=== PATIENT | male | born 1990 | race Caucasian/White ===

== ENCOUNTER 2021-10-23 07:52 | Outpatient (CLI) | payer OTHER | END 2021-10-23 23:59 | disposition home or self-care (01) | LOC: CT 07:52 | PROVIDERS: ATTEND Internal Medicine | DX: G93.89 Other specified disorders of brain (principal); G93.40 Encephalopathy, unspecified | CPT/HCPCS: 70450 ==

== ENCOUNTER 2022-08-12 | Inpatient (IN) | payer OTHER ==
[~2022-08-12] VITALS: Ht 182.9 cm; Wt 83.0 kg
[2022-08-14] MEDS ORDERED: LORAZEPAM 2 MG/1 ML VIAL IM PRN (08:15)
[2022-08-14] MEDS ORDERED: LACTULOSE 20 G/30 ML LIQUID UDC GT PRN (08:15)
[2022-08-14] MEDS ORDERED: ALBUTEROL SULFATE 2.5 MG/3 ML NEBU NEB PRN (08:15)
[2022-08-14] MEDS ORDERED: ACETAMINOPHEN 650 MG/20 ML UDC- SA PATIENTS-FEVER ONLY GT PRN (08:15)
[2022-08-14] MEDS ORDERED: LORAZEPAM 0.5 MG TABLET GT PRN (08:15)
[2022-08-14] MEDS ORDERED: BISACODYL 10 MG SUPP.RECT RC PRN (08:15)
[2022-08-14] MEDS ORDERED: ACETAMINOPHEN 650 MG/20 ML UDC- SA PATIENTS-PAIN ONLY GT PRN (08:15)
[2022-08-14] MEDS ORDERED: IPRATROPIUM BROMIDE 0.5 MG/2.5 ML NEBU NEB PRN (08:15)
[2022-08-14] MEDS ORDERED: HYDROGEN PEROXIDE 3% 118 ML BOTTLE TP PRN (08:15)
[2022-08-14] MEDS ORDERED: REMEDY ESSENTIAL ZINC PASTE 113 GM TP PRN (08:15)
[2022-08-14] MEDS ORDERED: TUBERCULIN,PURIF.PROT.DERIV. 5 TU/0.1 ML TEST ID SCH (08:30)
[2022-08-14] MEDS: MINERAL OIL/PETROLAT OPHT OINT 3.5 GM TUBE EACHEYE SCH ×2 (09:00→21:05)
[2022-08-14] MEDS: LACOSAMIDE 100 MG/10 ML UDC GT SCH ×2 (09:00→21:00)
[2022-08-14] MEDS: LACTULOSE 20 G/30 ML LIQUID UDC GT SCH ×2 (09:01→21:00)
[2022-08-14] MEDS: DOCUSATE SODIUM 100 MG/10 ML LIQUID UDC GT SCH ×2 (09:01→21:00)
[2022-08-14] MEDS: DESMOPRESSIN 0.1 MG TABLET GT SCH (09:01)
[2022-08-14] MEDS: levETIRAcetam 500 MG/5 ML LIQUID UDC GT SCH ×2 (09:02→21:00)
[2022-08-14] MEDS: CHLORHEXIDINE GLUCONATE 15 ML MOUTHWASH MM SCH ×2 (09:04→17:11)
[2022-08-14] MEDS: MIDODRINE HCL 5 MG TABLET GT SCH ×2 (09:04→21:00)
[2022-08-14] MEDS: REMEDY ESSENTIAL ZINC PASTE 113 GM TP SCH ×2 (09:05→21:00)
[2022-08-14] MEDS: VITAMINS A AND D OINT TP SCH (09:05)
[2022-08-14] MEDS: NEOMY/BACITRA/POLYMYXIN B OINT UD PACKET TP SCH ×2 (09:05→21:00)
[2022-08-14] MEDS: HYDROGEN PEROXIDE 3% 118 ML BOTTLE TOP SCH ×2 (09:19→21:43)
--- NOTE | 2022-08-14 11:35 | NUR ---
Covid 19 rapid test # 2 done as protocol,with negative results.
[2022-08-14] MEDS: METOCLOPRAMIDE HCL 10 MG TABLET GT SCH ×3 (12:19→17:11)
[2022-08-14] MEDS: POLYVINYL ALCOHOL OPHT DROPS 15 ML BOTTLE EACHEYE SCH ×3 (12:20→20:00)
[2022-08-14] MEDS: JEVITY 1.2 1000 ML LIQUID GT PRN (13:05)
--- NOTE | 2022-08-14 13:48 | NUR ---
SW emailed the annual admission packet to the patient's mother, Mar, to fill out. The paperwork includes: Conditions of Admission, Patient Rights Acknowledgement, Documentation of Preferred Intensity of Care, Voluntary Prior Express Consent Form, Race and Ethnicity Patient Self-Identification, and the [facility] Agreement. SW included instructions to return completed and signed forms to this SW. SW will continue to follow up.
[2022-08-14] MEDS: BACLOFEN 10 MG TABLET GT SCH ×2 (14:45→22:00)
[2022-08-14] MEDS: MULTIVIT, IRON, MIN NO. 8, FA TABLET GT SCH (21:00)
[2022-08-14] MEDS: MELATONIN 3 MG TABLET GT SCH (21:00)
[2022-08-14] MEDS: SENNOSIDES 1 TABLET GT SCH (21:00)
[2022-08-14] MEDS: FERROUS SULFATE 330 MG/7.5 ML UDC- FOR SA ONLY GT SCH (21:00)
[2022-08-15] MEDS: POLYVINYL ALCOHOL OPHT DROPS 15 ML BOTTLE EACHEYE SCH ×6 (03:45→20:00)
[2022-08-15] MEDS: METOCLOPRAMIDE HCL 10 MG TABLET GT SCH ×4 (05:24→18:17)
[2022-08-15] MEDS: OMEPRAZOLE 40 MG CAPSULE.DR GT SCH (05:24)
[2022-08-15] MEDS: CHOLECALCIFEROL 1,000 UNIT TABLET GT SCH (05:24)
[2022-08-15] MEDS: BACLOFEN 10 MG TABLET GT SCH ×3 (05:24→21:50)
[2022-08-15] MEDS: BISACODYL 10 MG SUPP.RECT RC SCH (08:13)
[2022-08-15] MEDS: HYDROGEN PEROXIDE 3% 118 ML BOTTLE TOP SCH ×2 (09:00→19:37)
[2022-08-15] MEDS: MINERAL OIL/PETROLAT OPHT OINT 3.5 GM TUBE EACHEYE SCH ×2 (09:18→21:45)
[2022-08-15] MEDS: DOCUSATE SODIUM 100 MG/10 ML LIQUID UDC GT SCH ×2 (09:18→21:45)
[2022-08-15] MEDS: LACTULOSE 20 G/30 ML LIQUID UDC GT SCH ×2 (09:18→21:45)
[2022-08-15] MEDS: levETIRAcetam 500 MG/5 ML LIQUID UDC GT SCH ×2 (09:19→21:46)
[2022-08-15] MEDS: DESMOPRESSIN 0.1 MG TABLET GT SCH (09:19)
[2022-08-15] MEDS: REMEDY ESSENTIAL ZINC PASTE 113 GM TP SCH ×2 (09:20→21:50)
[2022-08-15] MEDS: LACOSAMIDE 100 MG/10 ML UDC GT SCH ×2 (09:20→21:50)
[2022-08-15] MEDS: MIDODRINE HCL 5 MG TABLET GT SCH ×2 (09:20→21:48)
[2022-08-15] MEDS: CHLORHEXIDINE GLUCONATE 15 ML MOUTHWASH MM SCH ×2 (09:20→17:00)
[2022-08-15] MEDS: VITAMINS A AND D OINT TP SCH (09:21)
[2022-08-15] MEDS: NEOMY/BACITRA/POLYMYXIN B OINT UD PACKET TP SCH ×2 (09:21→21:50)
[2022-08-15] MEDS: FERROUS SULFATE 330 MG/7.5 ML UDC- FOR SA ONLY GT SCH (21:45)
[2022-08-15] MEDS: MELATONIN 3 MG TABLET GT SCH (21:46)
[2022-08-15] MEDS: SENNOSIDES 1 TABLET GT SCH (21:49)
[2022-08-15] MEDS: MULTIVIT, IRON, MIN NO. 8, FA TABLET GT SCH (21:50)
[2022-08-16] MEDS: METOCLOPRAMIDE HCL 10 MG TABLET GT SCH ×5 (00:46→23:27)
[2022-08-16] MEDS: POLYVINYL ALCOHOL OPHT DROPS 15 ML BOTTLE EACHEYE SCH ×7 (00:46→23:27)
[2022-08-16] MEDS: OMEPRAZOLE 40 MG CAPSULE.DR GT SCH (06:45)
[2022-08-16] MEDS: CHOLECALCIFEROL 1,000 UNIT TABLET GT SCH (06:45)
[2022-08-16] MEDS: BACLOFEN 10 MG TABLET GT SCH ×3 (06:45→21:19)
[2022-08-16] MEDS: MINERAL OIL/PETROLAT OPHT OINT 3.5 GM TUBE EACHEYE SCH ×2 (08:20→21:18)
[2022-08-16] MEDS: LACTULOSE 20 G/30 ML LIQUID UDC GT SCH ×2 (08:20→21:18)
[2022-08-16] MEDS: levETIRAcetam 500 MG/5 ML LIQUID UDC GT SCH ×2 (08:23→21:18)
[2022-08-16] MEDS: DOCUSATE SODIUM 100 MG/10 ML LIQUID UDC GT SCH ×2 (08:23→21:18)
[2022-08-16] MEDS: DESMOPRESSIN 0.1 MG TABLET GT SCH (08:23)
[2022-08-16] MEDS: MIDODRINE HCL 5 MG TABLET GT SCH ×2 (08:24→21:19)
[2022-08-16] MEDS: LACOSAMIDE 100 MG/10 ML UDC GT SCH ×2 (08:24→21:19)
[2022-08-16] MEDS: REMEDY ESSENTIAL ZINC PASTE 113 GM TP SCH ×2 (08:24→21:19)
[2022-08-16] MEDS: NEOMY/BACITRA/POLYMYXIN B OINT UD PACKET TP SCH ×2 (08:24→21:19)
[2022-08-16] MEDS: VITAMINS A AND D OINT TP SCH (08:24)
[2022-08-16] MEDS: CHLORHEXIDINE GLUCONATE 15 ML MOUTHWASH MM SCH ×2 (08:24→17:00)
[2022-08-16] MEDS: HYDROGEN PEROXIDE 3% 118 ML BOTTLE TOP SCH ×2 (09:53→21:40)
[2022-08-16] MEDS: MELATONIN 3 MG TABLET GT SCH (21:18)
[2022-08-16] MEDS: FERROUS SULFATE 330 MG/7.5 ML UDC- FOR SA ONLY GT SCH (21:18)
[2022-08-16] MEDS: MULTIVIT, IRON, MIN NO. 8, FA TABLET GT SCH (21:19)
[2022-08-16] MEDS: SENNOSIDES 1 TABLET GT SCH (21:19)
[2022-08-16] MEDS: JEVITY 1.2 1000 ML LIQUID GT PRN (21:28)
[2022-08-17] MEDS: POLYVINYL ALCOHOL OPHT DROPS 15 ML BOTTLE EACHEYE SCH ×5 (04:00→20:00)
[2022-08-17] MEDS: OMEPRAZOLE 40 MG CAPSULE.DR GT SCH (06:14)
[2022-08-17] MEDS: BACLOFEN 10 MG TABLET GT SCH ×3 (06:14→21:53)
[2022-08-17] MEDS: CHOLECALCIFEROL 1,000 UNIT TABLET GT SCH (06:14)
[2022-08-17] MEDS: METOCLOPRAMIDE HCL 10 MG TABLET GT SCH ×3 (06:14→17:58)
[2022-08-17] MEDS: BISACODYL 10 MG SUPP.RECT RC SCH (08:13)
[2022-08-17] MEDS: MINERAL OIL/PETROLAT OPHT OINT 3.5 GM TUBE EACHEYE SCH ×2 (09:00→21:00)
[2022-08-17] MEDS: CHLORHEXIDINE GLUCONATE 15 ML MOUTHWASH MM SCH ×2 (09:00→17:58)
[2022-08-17] MEDS: NEOMY/BACITRA/POLYMYXIN B OINT UD PACKET TP SCH ×2 (09:00→21:00)
[2022-08-17] MEDS: levETIRAcetam 500 MG/5 ML LIQUID UDC GT SCH ×2 (09:00→21:51)
[2022-08-17] MEDS: LACOSAMIDE 100 MG/10 ML UDC GT SCH ×2 (09:00→21:00)
[2022-08-17] MEDS: MIDODRINE HCL 5 MG TABLET GT SCH ×2 (09:00→21:00)
[2022-08-17] MEDS: DOCUSATE SODIUM 100 MG/10 ML LIQUID UDC GT SCH ×2 (09:00→21:00)
[2022-08-17] MEDS: VITAMINS A AND D OINT TP SCH (09:00)
[2022-08-17] MEDS: DESMOPRESSIN 0.1 MG TABLET GT SCH (09:00)
[2022-08-17] MEDS: REMEDY ESSENTIAL ZINC PASTE 113 GM TP SCH ×2 (09:00→21:00)
[2022-08-17] MEDS: LACTULOSE 20 G/30 ML LIQUID UDC GT SCH ×2 (09:00→21:00)
[2022-08-17] MEDS: HYDROGEN PEROXIDE 3% 118 ML BOTTLE TOP SCH ×2 (09:45→21:54)
--- NOTE | 2022-08-17 19:30 | NUR ---
Called mother Ms. Manuel notified regarding patient current weight is 183Lb. Mother is concern about bowel moment notified accordingly.
[2022-08-17] MEDS: FERROUS SULFATE 330 MG/7.5 ML UDC- FOR SA ONLY GT SCH (21:00)
[2022-08-17] MEDS: SENNOSIDES 1 TABLET GT SCH (21:52)
[2022-08-17] MEDS: MELATONIN 3 MG TABLET GT SCH (21:52)
[2022-08-17] MEDS: MULTIVIT, IRON, MIN NO. 8, FA TABLET GT SCH (21:52)
[2022-08-18] MEDS: JEVITY 1.2 1000 ML LIQUID GT PRN (01:51)
[2022-08-18] MEDS: POLYVINYL ALCOHOL OPHT DROPS 15 ML BOTTLE EACHEYE SCH ×7 (04:00→23:40)
[2022-08-18] MEDS: METOCLOPRAMIDE HCL 10 MG TABLET GT SCH ×5 (06:00→23:40)
[2022-08-18] MEDS: CHOLECALCIFEROL 1,000 UNIT TABLET GT SCH (06:00)
[2022-08-18] MEDS: BACLOFEN 10 MG TABLET GT SCH ×3 (06:00→22:00)
[2022-08-18] MEDS: OMEPRAZOLE 40 MG CAPSULE.DR GT SCH (06:10)
[2022-08-18] MEDS: HYDROGEN PEROXIDE 3% 118 ML BOTTLE TOP SCH ×2 (08:45→21:00)
[2022-08-18] MEDS: MINERAL OIL/PETROLAT OPHT OINT 3.5 GM TUBE EACHEYE SCH ×2 (09:35→21:00)
[2022-08-18] MEDS: LACTULOSE 20 G/30 ML LIQUID UDC GT SCH ×2 (09:35→21:00)
[2022-08-18] MEDS: DOCUSATE SODIUM 100 MG/10 ML LIQUID UDC GT SCH ×2 (09:36→21:00)
[2022-08-18] MEDS: MIDODRINE HCL 5 MG TABLET GT SCH ×2 (09:36→21:00)
[2022-08-18] MEDS: DESMOPRESSIN 0.1 MG TABLET GT SCH (09:36)
[2022-08-18] MEDS: levETIRAcetam 500 MG/5 ML LIQUID UDC GT SCH ×2 (09:37→21:00)
[2022-08-18] MEDS: LACOSAMIDE 100 MG/10 ML UDC GT SCH ×2 (09:38→21:00)
[2022-08-18] MEDS: REMEDY ESSENTIAL ZINC PASTE 113 GM TP SCH ×2 (09:39→21:00)
[2022-08-18] MEDS: CHLORHEXIDINE GLUCONATE 15 ML MOUTHWASH MM SCH ×2 (09:39→17:34)
[2022-08-18] MEDS: VITAMINS A AND D OINT TP SCH (09:39)
[2022-08-18] MEDS: NEOMY/BACITRA/POLYMYXIN B OINT UD PACKET TP SCH ×2 (09:39→21:00)
[2022-08-18] MEDS: SENNOSIDES 1 TABLET GT SCH (21:00)
[2022-08-18] MEDS: MELATONIN 3 MG TABLET GT SCH (21:00)
[2022-08-18] MEDS: FERROUS SULFATE 330 MG/7.5 ML UDC- FOR SA ONLY GT SCH (21:00)
[2022-08-18] MEDS: MULTIVIT, IRON, MIN NO. 8, FA TABLET GT SCH (21:00)
[2022-08-19] MEDS: POLYVINYL ALCOHOL OPHT DROPS 15 ML BOTTLE EACHEYE SCH ×5 (04:00→20:00)
[2022-08-19] MEDS: BACLOFEN 10 MG TABLET GT SCH ×3 (06:41→22:00)
[2022-08-19] MEDS: OMEPRAZOLE 40 MG CAPSULE.DR GT SCH (06:41)
[2022-08-19] MEDS: METOCLOPRAMIDE HCL 10 MG TABLET GT SCH ×3 (06:41→17:00)
[2022-08-19] MEDS: CHOLECALCIFEROL 1,000 UNIT TABLET GT SCH (06:42)
[2022-08-19] MEDS: DOCUSATE SODIUM 100 MG/10 ML LIQUID UDC GT SCH ×2 (08:08→21:00)
[2022-08-19] MEDS: DESMOPRESSIN 0.1 MG TABLET GT SCH (08:08)
[2022-08-19] MEDS: levETIRAcetam 500 MG/5 ML LIQUID UDC GT SCH ×2 (08:08→21:00)
[2022-08-19] MEDS: MINERAL OIL/PETROLAT OPHT OINT 3.5 GM TUBE EACHEYE SCH ×2 (08:08→21:00)
[2022-08-19] MEDS: LACTULOSE 20 G/30 ML LIQUID UDC GT SCH ×2 (08:08→21:00)
[2022-08-19] MEDS: MIDODRINE HCL 5 MG TABLET GT SCH ×2 (08:08→21:00)
[2022-08-19] MEDS: VITAMINS A AND D OINT TP SCH (08:09)
[2022-08-19] MEDS: LACOSAMIDE 100 MG/10 ML UDC GT SCH ×2 (08:09→21:00)
[2022-08-19] MEDS: NEOMY/BACITRA/POLYMYXIN B OINT UD PACKET TP SCH ×2 (08:09→21:00)
[2022-08-19] MEDS: CHLORHEXIDINE GLUCONATE 15 ML MOUTHWASH MM SCH ×2 (08:09→16:59)
[2022-08-19] MEDS: REMEDY ESSENTIAL ZINC PASTE 113 GM TP SCH ×2 (08:09→21:00)
[2022-08-19] MEDS: HYDROGEN PEROXIDE 3% 118 ML BOTTLE TOP SCH ×2 (09:28→21:00)
[2022-08-19] MEDS: FERROUS SULFATE 330 MG/7.5 ML UDC- FOR SA ONLY GT SCH (21:00)
[2022-08-19] MEDS: SENNOSIDES 1 TABLET GT SCH (21:00)
[2022-08-19] MEDS: MELATONIN 3 MG TABLET GT SCH (21:00)
[2022-08-19] MEDS: MULTIVIT, IRON, MIN NO. 8, FA TABLET GT SCH (21:00)
[2022-08-20] MEDS: METOCLOPRAMIDE HCL 10 MG TABLET GT SCH ×4 (00:25→17:02)
[2022-08-20] MEDS: POLYVINYL ALCOHOL OPHT DROPS 15 ML BOTTLE EACHEYE SCH ×6 (00:25→20:00)
[2022-08-20] MEDS: OMEPRAZOLE 40 MG CAPSULE.DR GT SCH (05:42)
[2022-08-20] MEDS: CHOLECALCIFEROL 1,000 UNIT TABLET GT SCH (05:42)
[2022-08-20] MEDS: BACLOFEN 10 MG TABLET GT SCH ×3 (05:42→22:00)
[2022-08-20] MEDS: LACOSAMIDE 100 MG/10 ML UDC GT SCH ×2 (08:34→21:00)
[2022-08-20] MEDS: BISACODYL 10 MG SUPP.RECT RC SCH (08:35)
[2022-08-20] MEDS: REMEDY ESSENTIAL ZINC PASTE 113 GM TP SCH ×2 (09:00→21:00)
[2022-08-20] MEDS: MIDODRINE HCL 5 MG TABLET GT SCH ×2 (09:00→21:00)
[2022-08-20] MEDS: NEOMY/BACITRA/POLYMYXIN B OINT UD PACKET TP SCH ×2 (09:00→21:00)
[2022-08-20] MEDS: MINERAL OIL/PETROLAT OPHT OINT 3.5 GM TUBE EACHEYE SCH ×2 (09:00→21:00)
[2022-08-20] MEDS: levETIRAcetam 500 MG/5 ML LIQUID UDC GT SCH ×2 (09:00→21:00)
[2022-08-20] MEDS: DESMOPRESSIN 0.1 MG TABLET GT SCH (09:00)
[2022-08-20] MEDS: VITAMINS A AND D OINT TP SCH (09:00)
[2022-08-20] MEDS: DOCUSATE SODIUM 100 MG/10 ML LIQUID UDC GT SCH ×2 (09:00→21:00)
[2022-08-20] MEDS: CHLORHEXIDINE GLUCONATE 15 ML MOUTHWASH MM SCH ×2 (09:00→17:02)
[2022-08-20] MEDS: LACTULOSE 20 G/30 ML LIQUID UDC GT SCH ×2 (09:00→21:00)
[2022-08-20] MEDS: HYDROGEN PEROXIDE 3% 118 ML BOTTLE TOP SCH ×2 (09:57→21:00)
[2022-08-20] MEDS: MULTIVIT, IRON, MIN NO. 8, FA TABLET GT SCH (21:00)
[2022-08-20] MEDS: MELATONIN 3 MG TABLET GT SCH (21:00)
[2022-08-20] MEDS: FERROUS SULFATE 330 MG/7.5 ML UDC- FOR SA ONLY GT SCH (21:00)
[2022-08-20] MEDS: SENNOSIDES 1 TABLET GT SCH (21:00)
[2022-08-21] MEDS: METOCLOPRAMIDE HCL 10 MG TABLET GT SCH ×4 (00:14→17:47)
[2022-08-21] MEDS: POLYVINYL ALCOHOL OPHT DROPS 15 ML BOTTLE EACHEYE SCH ×6 (00:15→20:00)
[2022-08-21] MEDS: OMEPRAZOLE 40 MG CAPSULE.DR GT SCH (06:00)
[2022-08-21] MEDS: CHOLECALCIFEROL 1,000 UNIT TABLET GT SCH (06:00)
[2022-08-21] MEDS: BACLOFEN 10 MG TABLET GT SCH ×3 (06:00→22:00)
--- NOTE | 2022-08-21 06:30 | NUR ---
SHIFT NOTED. MEDICATION GIVEN ORDERED NO SIGNS OF DISTRESS NOTED OR ADVERSE REACTION FROM MEDICATION PT CARE PROVIDED PT TOLERATED WELL WITH OUT DISTRESS . NO SIGNS OF PAIN NOTED. WILL ENDORSE TO AM SHIFT NURSE./
[2022-08-21] MEDS: HYDROGEN PEROXIDE 3% 118 ML BOTTLE TOP SCH ×2 (07:44→21:00)
[2022-08-21] MEDS: MINERAL OIL/PETROLAT OPHT OINT 3.5 GM TUBE EACHEYE SCH ×2 (09:19→21:00)
[2022-08-21] MEDS: LACTULOSE 20 G/30 ML LIQUID UDC GT SCH ×2 (09:19→21:00)
[2022-08-21] MEDS: DESMOPRESSIN 0.1 MG TABLET GT SCH (09:20)
[2022-08-21] MEDS: DOCUSATE SODIUM 100 MG/10 ML LIQUID UDC GT SCH ×2 (09:20→21:00)
[2022-08-21] MEDS: levETIRAcetam 500 MG/5 ML LIQUID UDC GT SCH ×2 (09:20→21:00)
[2022-08-21] MEDS: MIDODRINE HCL 5 MG TABLET GT SCH ×2 (09:21→21:00)
[2022-08-21] MEDS: NEOMY/BACITRA/POLYMYXIN B OINT UD PACKET TP SCH ×2 (09:21→21:00)
[2022-08-21] MEDS: LACOSAMIDE 100 MG/10 ML UDC GT SCH ×2 (09:21→21:00)
[2022-08-21] MEDS: REMEDY ESSENTIAL ZINC PASTE 113 GM TP SCH ×2 (09:21→21:00)
[2022-08-21] MEDS: VITAMINS A AND D OINT TP SCH (09:21)
[2022-08-21] MEDS: CHLORHEXIDINE GLUCONATE 15 ML MOUTHWASH MM SCH ×2 (09:21→17:47)
[2022-08-21] MEDS: JEVITY 1.2 1000 ML LIQUID GT PRN (12:51)
[2022-08-21] MEDS: SENNOSIDES 1 TABLET GT SCH (21:00)
[2022-08-21] MEDS: FERROUS SULFATE 330 MG/7.5 ML UDC- FOR SA ONLY GT SCH (21:00)
[2022-08-21] MEDS: MELATONIN 3 MG TABLET GT SCH (21:00)
[2022-08-21] MEDS: MULTIVIT, IRON, MIN NO. 8, FA TABLET GT SCH (21:00)
[2022-08-22] MEDS: POLYVINYL ALCOHOL OPHT DROPS 15 ML BOTTLE EACHEYE SCH ×6 (04:16→20:29)
[2022-08-22] MEDS: OMEPRAZOLE 40 MG CAPSULE.DR GT SCH (06:55)
[2022-08-22] MEDS: BACLOFEN 10 MG TABLET GT SCH ×3 (06:55→22:29)
[2022-08-22] MEDS: CHOLECALCIFEROL 1,000 UNIT TABLET GT SCH (06:56)
[2022-08-22] MEDS: METOCLOPRAMIDE HCL 10 MG TABLET GT SCH ×4 (06:56→17:56)
[2022-08-22] MEDS: BISACODYL 10 MG SUPP.RECT RC SCH (08:27)
[2022-08-22] MEDS: MINERAL OIL/PETROLAT OPHT OINT 3.5 GM TUBE EACHEYE SCH ×2 (08:27→20:29)
[2022-08-22] MEDS: LACTULOSE 20 G/30 ML LIQUID UDC GT SCH ×2 (08:27→20:29)
[2022-08-22] MEDS: MIDODRINE HCL 5 MG TABLET GT SCH ×2 (08:28→20:30)
[2022-08-22] MEDS: DESMOPRESSIN 0.1 MG TABLET GT SCH (08:28)
[2022-08-22] MEDS: DOCUSATE SODIUM 100 MG/10 ML LIQUID UDC GT SCH ×2 (08:28→20:29)
[2022-08-22] MEDS: REMEDY ESSENTIAL ZINC PASTE 113 GM TP SCH ×2 (08:29→20:30)
[2022-08-22] MEDS: LACOSAMIDE 100 MG/10 ML UDC GT SCH ×2 (08:29→20:30)
[2022-08-22] MEDS: CHLORHEXIDINE GLUCONATE 15 ML MOUTHWASH MM SCH ×2 (08:29→17:55)
[2022-08-22] MEDS: levETIRAcetam 500 MG/5 ML LIQUID UDC GT SCH ×2 (08:29→20:29)
[2022-08-22] MEDS: VITAMINS A AND D OINT TP SCH (08:29)
[2022-08-22] MEDS: NEOMY/BACITRA/POLYMYXIN B OINT UD PACKET TP SCH ×2 (08:29→20:30)
[2022-08-22] MEDS: HYDROGEN PEROXIDE 3% 118 ML BOTTLE TOP SCH ×2 (09:11→21:32)
[2022-08-22] MEDS: JEVITY 1.2 1000 ML LIQUID GT PRN (14:13)
[2022-08-22] MEDS: FERROUS SULFATE 330 MG/7.5 ML UDC- FOR SA ONLY GT SCH (20:29)
[2022-08-22] MEDS: MELATONIN 3 MG TABLET GT SCH (20:29)
[2022-08-22] MEDS: SENNOSIDES 1 TABLET GT SCH (20:30)
[2022-08-22] MEDS: MULTIVIT, IRON, MIN NO. 8, FA TABLET GT SCH (20:30)
[2022-08-23] MEDS: POLYVINYL ALCOHOL OPHT DROPS 15 ML BOTTLE EACHEYE SCH ×6 (00:37→20:00)
[2022-08-23] MEDS: METOCLOPRAMIDE HCL 10 MG TABLET GT SCH ×4 (00:37→17:16)
[2022-08-23] MEDS: BACLOFEN 10 MG TABLET GT SCH ×3 (05:22→21:38)
[2022-08-23] MEDS: OMEPRAZOLE 40 MG CAPSULE.DR GT SCH (05:22)
[2022-08-23] MEDS: CHOLECALCIFEROL 1,000 UNIT TABLET GT SCH (05:22)
[2022-08-23] MEDS: VITAMINS A AND D OINT TP SCH (08:16)
[2022-08-23] MEDS: LACOSAMIDE 100 MG/10 ML UDC GT SCH ×2 (08:16→21:38)
[2022-08-23] MEDS: DOCUSATE SODIUM 100 MG/10 ML LIQUID UDC GT SCH ×2 (08:16→21:38)
[2022-08-23] MEDS: MIDODRINE HCL 5 MG TABLET GT SCH ×2 (08:16→21:38)
[2022-08-23] MEDS: CHLORHEXIDINE GLUCONATE 15 ML MOUTHWASH MM SCH ×2 (08:16→17:16)
[2022-08-23] MEDS: levETIRAcetam 500 MG/5 ML LIQUID UDC GT SCH ×2 (08:16→21:38)
[2022-08-23] MEDS: DESMOPRESSIN 0.1 MG TABLET GT SCH (08:16)
[2022-08-23] MEDS: MINERAL OIL/PETROLAT OPHT OINT 3.5 GM TUBE EACHEYE SCH ×2 (08:16→21:38)
[2022-08-23] MEDS: LACTULOSE 20 G/30 ML LIQUID UDC GT SCH ×2 (08:16→21:38)
[2022-08-23] MEDS: REMEDY ESSENTIAL ZINC PASTE 113 GM TP SCH ×2 (08:16→21:38)
[2022-08-23] MEDS: HYDROGEN PEROXIDE 3% 118 ML BOTTLE TOP SCH ×2 (08:29→21:00)
[2022-08-23] MEDS: MULTIVIT, IRON, MIN NO. 8, FA TABLET GT SCH (21:38)
[2022-08-23] MEDS: MELATONIN 3 MG TABLET GT SCH (21:38)
[2022-08-23] MEDS: SENNOSIDES 1 TABLET GT SCH (21:38)
[2022-08-23] MEDS: FERROUS SULFATE 330 MG/7.5 ML UDC- FOR SA ONLY GT SCH (21:38)
[2022-08-24] MEDS: POLYVINYL ALCOHOL OPHT DROPS 15 ML BOTTLE EACHEYE SCH ×6 (04:00→20:00)
[2022-08-24] MEDS: METOCLOPRAMIDE HCL 10 MG TABLET GT SCH ×4 (05:46→17:10)
[2022-08-24] MEDS: OMEPRAZOLE 40 MG CAPSULE.DR GT SCH (05:46)
[2022-08-24] MEDS: CHOLECALCIFEROL 1,000 UNIT TABLET GT SCH (05:46)
[2022-08-24] MEDS: BACLOFEN 10 MG TABLET GT SCH ×3 (05:46→21:35)
[2022-08-24] MEDS: HYDROGEN PEROXIDE 3% 118 ML BOTTLE TOP SCH ×2 (08:09→21:15)
[2022-08-24] MEDS: BISACODYL 10 MG SUPP.RECT RC SCH (08:13)
[2022-08-24] MEDS: LACTULOSE 20 G/30 ML LIQUID UDC GT SCH ×2 (09:15→21:34)
[2022-08-24] MEDS: levETIRAcetam 500 MG/5 ML LIQUID UDC GT SCH ×2 (09:15→21:35)
[2022-08-24] MEDS: MINERAL OIL/PETROLAT OPHT OINT 3.5 GM TUBE EACHEYE SCH ×2 (09:15→21:34)
[2022-08-24] MEDS: DESMOPRESSIN 0.1 MG TABLET GT SCH (09:15)
[2022-08-24] MEDS: DOCUSATE SODIUM 100 MG/10 ML LIQUID UDC GT SCH ×2 (09:15→21:34)
[2022-08-24] MEDS: VITAMINS A AND D OINT TP SCH (09:16)
[2022-08-24] MEDS: MIDODRINE HCL 5 MG TABLET GT SCH ×2 (09:16→21:37)
[2022-08-24] MEDS: CHLORHEXIDINE GLUCONATE 15 ML MOUTHWASH MM SCH ×2 (09:16→16:33)
[2022-08-24] MEDS: REMEDY ESSENTIAL ZINC PASTE 113 GM TP SCH ×2 (09:16→21:35)
[2022-08-24] MEDS: LACOSAMIDE 100 MG/10 ML UDC GT SCH ×2 (09:16→21:35)
[2022-08-24] MEDS: MELATONIN 3 MG TABLET GT SCH (21:35)
[2022-08-24] MEDS: SENNOSIDES 1 TABLET GT SCH (21:35)
[2022-08-24] MEDS: FERROUS SULFATE 330 MG/7.5 ML UDC- FOR SA ONLY GT SCH (21:35)
[2022-08-24] MEDS: MULTIVIT, IRON, MIN NO. 8, FA TABLET GT SCH (21:35)
[2022-08-25] MEDS: POLYVINYL ALCOHOL OPHT DROPS 15 ML BOTTLE EACHEYE SCH ×6 (04:30→20:59)
[2022-08-25] MEDS: OMEPRAZOLE 40 MG CAPSULE.DR GT SCH (05:56)
[2022-08-25] MEDS: BACLOFEN 10 MG TABLET GT SCH ×3 (05:56→21:13)
[2022-08-25] MEDS: CHOLECALCIFEROL 1,000 UNIT TABLET GT SCH (05:56)
[2022-08-25] MEDS: METOCLOPRAMIDE HCL 10 MG TABLET GT SCH ×4 (05:56→17:33)
[2022-08-25] MEDS: HYDROGEN PEROXIDE 3% 118 ML BOTTLE TOP SCH ×2 (08:01→21:12)
[2022-08-25] MEDS: MINERAL OIL/PETROLAT OPHT OINT 3.5 GM TUBE EACHEYE SCH ×2 (08:58→20:59)
[2022-08-25] MEDS: levETIRAcetam 500 MG/5 ML LIQUID UDC GT SCH ×2 (09:03→21:07)
[2022-08-25] MEDS: LACTULOSE 20 G/30 ML LIQUID UDC GT SCH ×2 (09:03→21:02)
[2022-08-25] MEDS: DESMOPRESSIN 0.1 MG TABLET GT SCH (09:03)
[2022-08-25] MEDS: DOCUSATE SODIUM 100 MG/10 ML LIQUID UDC GT SCH ×2 (09:03→21:03)
[2022-08-25] MEDS: MIDODRINE HCL 5 MG TABLET GT SCH ×2 (09:04→21:09)
[2022-08-25] MEDS: LACOSAMIDE 100 MG/10 ML UDC GT SCH ×2 (09:04→21:25)
[2022-08-25] MEDS: CHLORHEXIDINE GLUCONATE 15 ML MOUTHWASH MM SCH ×2 (09:08→17:33)
[2022-08-25] MEDS: REMEDY ESSENTIAL ZINC PASTE 113 GM TP SCH ×2 (09:08→21:11)
[2022-08-25] MEDS: VITAMINS A AND D OINT TP SCH (09:08)
[2022-08-25] MEDS: JEVITY 1.2 1000 ML LIQUID GT PRN (17:34)
[2022-08-25] MEDS: FERROUS SULFATE 330 MG/7.5 ML UDC- FOR SA ONLY GT SCH (21:04)
[2022-08-25] MEDS: MELATONIN 3 MG TABLET GT SCH (21:07)
[2022-08-25] MEDS: SENNOSIDES 1 TABLET GT SCH (21:09)
[2022-08-25] MEDS: MULTIVIT, IRON, MIN NO. 8, FA TABLET GT SCH (21:10)
[2022-08-26] MEDS: POLYVINYL ALCOHOL OPHT DROPS 15 ML BOTTLE EACHEYE SCH ×6 (00:45→20:00)
[2022-08-26] MEDS: METOCLOPRAMIDE HCL 10 MG TABLET GT SCH ×4 (00:45→17:59)
[2022-08-26] MEDS: OMEPRAZOLE 40 MG CAPSULE.DR GT SCH (05:38)
[2022-08-26] MEDS: CHOLECALCIFEROL 1,000 UNIT TABLET GT SCH (05:38)
[2022-08-26] MEDS: BACLOFEN 10 MG TABLET GT SCH ×3 (05:38→22:03)
--- NOTE | 2022-08-26 07:53 | NUR ---
SHIFT NOTE: RECEIVED REPORT FROM AM NURSE RUFUS PT NO COMMUNICATION TRACH VENT PT GIVEN MEDICATION ORDERED CLEANED AND CHANGED ALONG WITH REPOSITIONING TOLERATED WELL NO SIGNS OF DISTRESS NOTED. NO ADVERSE REACTION FROM MEDICATIONS. WILL ENDORSE TO AM NURSE.
[2022-08-26] MEDS: DOCUSATE SODIUM 100 MG/10 ML LIQUID UDC GT SCH ×2 (08:29→21:00)
[2022-08-26] MEDS: DESMOPRESSIN 0.1 MG TABLET GT SCH (08:29)
[2022-08-26] MEDS: MINERAL OIL/PETROLAT OPHT OINT 3.5 GM TUBE EACHEYE SCH ×2 (08:29→21:00)
[2022-08-26] MEDS: LACTULOSE 20 G/30 ML LIQUID UDC GT SCH ×2 (08:29→21:00)
[2022-08-26] MEDS: MIDODRINE HCL 5 MG TABLET GT SCH ×2 (08:31→21:00)
[2022-08-26] MEDS: levETIRAcetam 500 MG/5 ML LIQUID UDC GT SCH ×2 (08:31→21:00)
[2022-08-26] MEDS: CHLORHEXIDINE GLUCONATE 15 ML MOUTHWASH MM SCH ×2 (08:31→17:11)
[2022-08-26] MEDS: LACOSAMIDE 100 MG/10 ML UDC GT SCH ×2 (08:31→21:00)
[2022-08-26] MEDS: VITAMINS A AND D OINT TP SCH (08:32)
[2022-08-26] MEDS: REMEDY ESSENTIAL ZINC PASTE 113 GM TP SCH ×2 (08:32→21:00)
[2022-08-26] MEDS: HYDROGEN PEROXIDE 3% 118 ML BOTTLE TOP SCH ×2 (09:30→21:00)
[2022-08-26] MEDS: MULTIVIT, IRON, MIN NO. 8, FA TABLET GT SCH (21:00)
[2022-08-26] MEDS: FERROUS SULFATE 330 MG/7.5 ML UDC- FOR SA ONLY GT SCH (21:00)
[2022-08-26] MEDS: SENNOSIDES 1 TABLET GT SCH (21:00)
[2022-08-26] MEDS: MELATONIN 3 MG TABLET GT SCH (21:00)
[2022-08-26] MEDS: JEVITY 1.2 1000 ML LIQUID GT PRN (22:26)
[2022-08-27] MEDS: POLYVINYL ALCOHOL OPHT DROPS 15 ML BOTTLE EACHEYE SCH ×6 (00:43→20:00)
[2022-08-27] MEDS: METOCLOPRAMIDE HCL 10 MG TABLET GT SCH ×4 (00:43→18:15)
[2022-08-27] MEDS: OMEPRAZOLE 40 MG CAPSULE.DR GT SCH (05:37)
[2022-08-27] MEDS: CHOLECALCIFEROL 1,000 UNIT TABLET GT SCH (05:37)
[2022-08-27] MEDS: BACLOFEN 10 MG TABLET GT SCH ×3 (05:37→22:00)
[2022-08-27] MEDS: HYDROGEN PEROXIDE 3% 118 ML BOTTLE TOP SCH ×2 (07:24→21:30)
[2022-08-27] MEDS: BISACODYL 10 MG SUPP.RECT RC SCH (08:45)
[2022-08-27] MEDS: MINERAL OIL/PETROLAT OPHT OINT 3.5 GM TUBE EACHEYE SCH ×2 (08:45→21:00)
[2022-08-27] MEDS: levETIRAcetam 500 MG/5 ML LIQUID UDC GT SCH ×2 (08:46→21:00)
[2022-08-27] MEDS: DOCUSATE SODIUM 100 MG/10 ML LIQUID UDC GT SCH ×2 (08:46→21:00)
[2022-08-27] MEDS: DESMOPRESSIN 0.1 MG TABLET GT SCH (08:46)
[2022-08-27] MEDS: LACTULOSE 20 G/30 ML LIQUID UDC GT SCH ×2 (08:46→21:00)
[2022-08-27] MEDS: MIDODRINE HCL 5 MG TABLET GT SCH ×2 (08:47→21:00)
[2022-08-27] MEDS: VITAMINS A AND D OINT TP SCH (08:47)
[2022-08-27] MEDS: LACOSAMIDE 100 MG/10 ML UDC GT SCH ×2 (08:47→21:00)
[2022-08-27] MEDS: CHLORHEXIDINE GLUCONATE 15 ML MOUTHWASH MM SCH ×2 (08:47→16:35)
[2022-08-27] MEDS: REMEDY ESSENTIAL ZINC PASTE 113 GM TP SCH ×2 (08:47→21:00)
--- NOTE | 2022-08-27 10:29 | NUR ---
RADHIKA notified patient's mother, Mar by email that the next IDT meeting for the patient is scheduled for 09/04/2022 at 11am. RADHIKA asked Mar to let RADHIKA know if she would like to participate in the meeting by speaker phone.
[2022-08-27] MEDS: FERROUS SULFATE 330 MG/7.5 ML UDC- FOR SA ONLY GT SCH (21:00)
[2022-08-27] MEDS: MELATONIN 3 MG TABLET GT SCH (21:00)
[2022-08-27] MEDS: SENNOSIDES 1 TABLET GT SCH (21:00)
[2022-08-27] MEDS: MULTIVIT, IRON, MIN NO. 8, FA TABLET GT SCH (22:00)
[2022-08-28] MEDS: METOCLOPRAMIDE HCL 10 MG TABLET GT SCH ×4 (00:25→17:15)
[2022-08-28] MEDS: POLYVINYL ALCOHOL OPHT DROPS 15 ML BOTTLE EACHEYE SCH ×6 (00:28→20:00)
[2022-08-28] MEDS: JEVITY 1.2 1000 ML LIQUID GT PRN (02:14)
[2022-08-28] MEDS: BACLOFEN 10 MG TABLET GT SCH ×3 (06:00→22:45)
[2022-08-28] MEDS: OMEPRAZOLE 40 MG CAPSULE.DR GT SCH (06:00)
[2022-08-28] MEDS: CHOLECALCIFEROL 1,000 UNIT TABLET GT SCH (06:00)
[2022-08-28] MEDS: HYDROGEN PEROXIDE 3% 118 ML BOTTLE TOP SCH ×2 (07:21→21:00)
[2022-08-28] MEDS: CHLORHEXIDINE GLUCONATE 15 ML MOUTHWASH MM SCH ×2 (08:08→17:15)
[2022-08-28] MEDS: LACTULOSE 20 G/30 ML LIQUID UDC GT SCH ×2 (08:08→20:34)
[2022-08-28] MEDS: levETIRAcetam 500 MG/5 ML LIQUID UDC GT SCH ×2 (08:08→20:34)
[2022-08-28] MEDS: REMEDY ESSENTIAL ZINC PASTE 113 GM TP SCH ×2 (08:08→20:34)
[2022-08-28] MEDS: VITAMINS A AND D OINT TP SCH (08:08)
[2022-08-28] MEDS: LACOSAMIDE 100 MG/10 ML UDC GT SCH ×2 (08:08→20:34)
[2022-08-28] MEDS: MIDODRINE HCL 5 MG TABLET GT SCH ×2 (08:08→20:34)
[2022-08-28] MEDS: DOCUSATE SODIUM 100 MG/10 ML LIQUID UDC GT SCH ×2 (08:08→20:34)
[2022-08-28] MEDS: DESMOPRESSIN 0.1 MG TABLET GT SCH (08:08)
--- NOTE | 2022-08-28 08:50 | NUR ---
SHIFT NOTE; PT RECEIVED MEDICATION ORDERED NO ADVERSE REACTION NOTED. GTUBE FLUSHED AND WITH 5ML RESIDUAL NO SIGNS OF RESPIRATORY DISTRESS NOTED. WILL CONTINUE TO MONITOR FALL AND SAFETY ALSO ENDORSED TO AM NURSE.
[2022-08-28] MEDS: MINERAL OIL/PETROLAT OPHT OINT 3.5 GM TUBE EACHEYE SCH ×2 (09:00→20:34)
[2022-08-28] MEDS: SENNOSIDES 1 TABLET GT SCH (20:34)
[2022-08-28] MEDS: MULTIVIT, IRON, MIN NO. 8, FA TABLET GT SCH (20:34)
[2022-08-28] MEDS: FERROUS SULFATE 330 MG/7.5 ML UDC- FOR SA ONLY GT SCH (20:34)
[2022-08-28] MEDS: MELATONIN 3 MG TABLET GT SCH (20:34)
[2022-08-29] MEDS: JEVITY 1.2 1000 ML LIQUID GT PRN (04:28)
[2022-08-29] MEDS: POLYVINYL ALCOHOL OPHT DROPS 15 ML BOTTLE EACHEYE SCH ×7 (04:28→23:07)
[2022-08-29] MEDS: BACLOFEN 10 MG TABLET GT SCH ×3 (05:11→21:59)
[2022-08-29] MEDS: CHOLECALCIFEROL 1,000 UNIT TABLET GT SCH (05:11)
[2022-08-29] MEDS: OMEPRAZOLE 40 MG CAPSULE.DR GT SCH (05:11)
[2022-08-29] MEDS: METOCLOPRAMIDE HCL 10 MG TABLET GT SCH ×5 (05:11→23:07)
[2022-08-29] MEDS: LACTULOSE 20 G/30 ML LIQUID UDC GT SCH ×2 (08:02→21:59)
[2022-08-29] MEDS: DESMOPRESSIN 0.1 MG TABLET GT SCH (08:02)
[2022-08-29] MEDS: DOCUSATE SODIUM 100 MG/10 ML LIQUID UDC GT SCH ×2 (08:02→21:20)
[2022-08-29] MEDS: MIDODRINE HCL 5 MG TABLET GT SCH ×2 (08:04→21:59)
[2022-08-29] MEDS: levETIRAcetam 500 MG/5 ML LIQUID UDC GT SCH ×2 (08:04→21:59)
[2022-08-29] MEDS: CHLORHEXIDINE GLUCONATE 15 ML MOUTHWASH MM SCH ×2 (08:04→17:05)
[2022-08-29] MEDS: LACOSAMIDE 100 MG/10 ML UDC GT SCH ×2 (08:04→21:59)
[2022-08-29] MEDS: REMEDY ESSENTIAL ZINC PASTE 113 GM TP SCH ×2 (08:05→21:59)
[2022-08-29] MEDS: MINERAL OIL/PETROLAT OPHT OINT 3.5 GM TUBE EACHEYE SCH ×2 (08:05→21:19)
[2022-08-29] MEDS: VITAMINS A AND D OINT TP SCH (08:05)
[2022-08-29] MEDS: HYDROGEN PEROXIDE 3% 118 ML BOTTLE TOP SCH ×2 (09:25→21:25)
[2022-08-29] MEDS: BISACODYL 10 MG SUPP.RECT RC SCH (09:30)
--- NOTE | 2022-08-29 12:56 | NUR ---
Covid 19 test result negative,Pt's mother Mar notified.
[2022-08-29] MEDS: FERROUS SULFATE 330 MG/7.5 ML UDC- FOR SA ONLY GT SCH (21:20)
[2022-08-29] MEDS: MELATONIN 3 MG TABLET GT SCH (21:59)
[2022-08-29] MEDS: SENNOSIDES 1 TABLET GT SCH (21:59)
[2022-08-29] MEDS: MULTIVIT, IRON, MIN NO. 8, FA TABLET GT SCH (21:59)
[2022-08-30] MEDS: POLYVINYL ALCOHOL OPHT DROPS 15 ML BOTTLE EACHEYE SCH ×6 (04:54→23:56)
[2022-08-30] MEDS: BACLOFEN 10 MG TABLET GT SCH ×3 (06:20→22:00)
[2022-08-30] MEDS: METOCLOPRAMIDE HCL 10 MG TABLET GT SCH ×4 (06:20→23:56)
[2022-08-30] MEDS: OMEPRAZOLE 40 MG CAPSULE.DR GT SCH (06:20)
[2022-08-30] MEDS: CHOLECALCIFEROL 1,000 UNIT TABLET GT SCH (06:21)
[2022-08-30] MEDS: HYDROGEN PEROXIDE 3% 118 ML BOTTLE TOP SCH ×2 (07:29→19:12)
[2022-08-30] MEDS: levETIRAcetam 500 MG/5 ML LIQUID UDC GT SCH ×2 (08:51→21:00)
[2022-08-30] MEDS: MINERAL OIL/PETROLAT OPHT OINT 3.5 GM TUBE EACHEYE SCH ×2 (08:51→21:00)
[2022-08-30] MEDS: DOCUSATE SODIUM 100 MG/10 ML LIQUID UDC GT SCH ×2 (08:51→21:00)
[2022-08-30] MEDS: LACTULOSE 20 G/30 ML LIQUID UDC GT SCH ×2 (08:51→21:00)
[2022-08-30] MEDS: CHLORHEXIDINE GLUCONATE 15 ML MOUTHWASH MM SCH ×2 (08:51→17:14)
[2022-08-30] MEDS: LACOSAMIDE 100 MG/10 ML UDC GT SCH ×2 (08:51→21:00)
[2022-08-30] MEDS: MIDODRINE HCL 5 MG TABLET GT SCH ×2 (08:51→21:00)
[2022-08-30] MEDS: DESMOPRESSIN 0.1 MG TABLET GT SCH (08:51)
[2022-08-30] MEDS: VITAMINS A AND D OINT TP SCH (08:52)
[2022-08-30] MEDS: REMEDY ESSENTIAL ZINC PASTE 113 GM TP SCH ×2 (08:52→21:00)
--- NOTE | 2022-08-30 18:58 | NUR ---
Seen and examine by DR Griffith with new order for labs on CBC, CMP,PO4, Mg Order noted and carried out.
[2022-08-30] MEDS: MULTIVIT, IRON, MIN NO. 8, FA TABLET GT SCH (21:00)
[2022-08-30] MEDS: SENNOSIDES 1 TABLET GT SCH (21:00)
[2022-08-30] MEDS: FERROUS SULFATE 330 MG/7.5 ML UDC- FOR SA ONLY GT SCH (21:00)
[2022-08-30] MEDS: MELATONIN 3 MG TABLET GT SCH (21:00)
[2022-08-31] MEDS: POLYVINYL ALCOHOL OPHT DROPS 15 ML BOTTLE EACHEYE SCH ×5 (04:08→20:00)
[2022-08-31] MEDS: BACLOFEN 10 MG TABLET GT SCH ×3 (06:48→22:42)
[2022-08-31] MEDS: OMEPRAZOLE 40 MG CAPSULE.DR GT SCH (06:48)
[2022-08-31] MEDS: METOCLOPRAMIDE HCL 10 MG TABLET GT SCH ×3 (06:48→17:30)
[2022-08-31] MEDS: CHOLECALCIFEROL 1,000 UNIT TABLET GT SCH (06:48)
[2022-08-31] MEDS: MINERAL OIL/PETROLAT OPHT OINT 3.5 GM TUBE EACHEYE SCH ×2 (08:52→21:00)
[2022-08-31] MEDS: LACTULOSE 20 G/30 ML LIQUID UDC GT SCH ×2 (08:52→21:00)
[2022-08-31] MEDS: BISACODYL 10 MG SUPP.RECT RC SCH (08:52)
[2022-08-31] MEDS: DOCUSATE SODIUM 100 MG/10 ML LIQUID UDC GT SCH ×2 (08:52→21:00)
[2022-08-31] MEDS: levETIRAcetam 500 MG/5 ML LIQUID UDC GT SCH ×2 (08:53→21:00)
[2022-08-31] MEDS: DESMOPRESSIN 0.1 MG TABLET GT SCH (08:53)
[2022-08-31] MEDS: VITAMINS A AND D OINT TP SCH (08:54)
[2022-08-31] MEDS: LACOSAMIDE 100 MG/10 ML UDC GT SCH ×2 (08:54→21:00)
[2022-08-31] MEDS: CHLORHEXIDINE GLUCONATE 15 ML MOUTHWASH MM SCH ×2 (08:54→17:30)
[2022-08-31] MEDS: REMEDY ESSENTIAL ZINC PASTE 113 GM TP SCH ×2 (08:54→21:00)
[2022-08-31] MEDS: MIDODRINE HCL 5 MG TABLET GT SCH ×2 (08:54→21:00)
[2022-08-31] MEDS: HYDROGEN PEROXIDE 3% 118 ML BOTTLE TOP SCH ×2 (09:10→19:12)
[2022-08-31] MEDS: JEVITY 1.2 1000 ML LIQUID GT PRN (10:21)
--- NOTE | 2022-08-31 10:56 | NUR ---
PT. SEEN AND EXAMINED BY DR. LUC ANNE AND WAS AWARE OF THE PEER TO PEER REVIEW REQUESTED BY LEILANI AND THAT HE NEEDS TO CALL AT [phone] THIS IS ACCORDING TO HAYDER FROM ADMITTING DEPARTMENT AND RN FACULTY KARRI AND HE SAID HE WILL CALL.
--- NOTE | 2022-08-31 11:00 | NUR ---
PT. WAS SEEN AND EXAMINED BY GLADIS Mata AND DR. LUC NUNEZ AND WITH NNO.
[2022-08-31] MEDS: SENNOSIDES 1 TABLET GT SCH (21:00)
[2022-08-31] MEDS: FERROUS SULFATE 330 MG/7.5 ML UDC- FOR SA ONLY GT SCH (21:00)
[2022-08-31] MEDS: MULTIVIT, IRON, MIN NO. 8, FA TABLET GT SCH (21:00)
[2022-08-31] MEDS: MELATONIN 3 MG TABLET GT SCH (21:00)
[2022-09-01] MEDS: POLYVINYL ALCOHOL OPHT DROPS 15 ML BOTTLE EACHEYE SCH ×7 (00:55→23:26)
[2022-09-01] MEDS: METOCLOPRAMIDE HCL 10 MG TABLET GT SCH ×5 (00:55→23:26)
[2022-09-01] MEDS: CHOLECALCIFEROL 1,000 UNIT TABLET GT SCH (06:41)
[2022-09-01] MEDS: OMEPRAZOLE 40 MG CAPSULE.DR GT SCH (06:41)
[2022-09-01] MEDS: BACLOFEN 10 MG TABLET GT SCH ×3 (06:41→22:00)
[2022-09-01] MEDS: HYDROGEN PEROXIDE 3% 118 ML BOTTLE TOP SCH ×2 (07:35→19:03)
[2022-09-01] MEDS: MINERAL OIL/PETROLAT OPHT OINT 3.5 GM TUBE EACHEYE SCH ×2 (08:32→21:00)
[2022-09-01] MEDS: LACTULOSE 20 G/30 ML LIQUID UDC GT SCH ×2 (08:32→21:00)
[2022-09-01] MEDS: DOCUSATE SODIUM 100 MG/10 ML LIQUID UDC GT SCH ×2 (08:32→21:00)
[2022-09-01] MEDS: DESMOPRESSIN 0.1 MG TABLET GT SCH (08:35)
[2022-09-01] MEDS: levETIRAcetam 500 MG/5 ML LIQUID UDC GT SCH ×2 (08:35→21:00)
[2022-09-01] MEDS: MIDODRINE HCL 5 MG TABLET GT SCH ×2 (08:36→21:00)
[2022-09-01] MEDS: CHLORHEXIDINE GLUCONATE 15 ML MOUTHWASH MM SCH ×2 (08:36→17:13)
[2022-09-01] MEDS: LACOSAMIDE 100 MG/10 ML UDC GT SCH ×2 (08:36→21:00)
[2022-09-01] MEDS: REMEDY ESSENTIAL ZINC PASTE 113 GM TP SCH ×2 (08:36→21:00)
[2022-09-01] MEDS: VITAMINS A AND D OINT TP SCH (08:37)
[2022-09-01] MEDS: JEVITY 1.2 1000 ML LIQUID GT PRN (08:41)
[2022-09-01] MEDS: FERROUS SULFATE 330 MG/7.5 ML UDC- FOR SA ONLY GT SCH (21:00)
[2022-09-01] MEDS: MULTIVIT, IRON, MIN NO. 8, FA TABLET GT SCH (21:00)
[2022-09-01] MEDS: SENNOSIDES 1 TABLET GT SCH (21:00)
[2022-09-01] MEDS: MELATONIN 3 MG TABLET GT SCH (21:00)
[2022-09-02] MEDS: POLYVINYL ALCOHOL OPHT DROPS 15 ML BOTTLE EACHEYE SCH ×5 (04:00→20:00)
[2022-09-02] MEDS: JEVITY 1.2 1000 ML LIQUID GT PRN (04:00)
[2022-09-02] MEDS: OMEPRAZOLE 40 MG CAPSULE.DR GT SCH (06:37)
[2022-09-02] MEDS: CHOLECALCIFEROL 1,000 UNIT TABLET GT SCH (06:37)
[2022-09-02] MEDS: METOCLOPRAMIDE HCL 10 MG TABLET GT SCH ×4 (06:37→23:47)
[2022-09-02] MEDS: BACLOFEN 10 MG TABLET GT SCH ×3 (06:37→22:00)
[2022-09-02] MEDS: DOCUSATE SODIUM 100 MG/10 ML LIQUID UDC GT SCH ×2 (09:11→21:00)
[2022-09-02] MEDS: MINERAL OIL/PETROLAT OPHT OINT 3.5 GM TUBE EACHEYE SCH ×2 (09:11→21:00)
[2022-09-02] MEDS: DESMOPRESSIN 0.1 MG TABLET GT SCH (09:11)
[2022-09-02] MEDS: LACTULOSE 20 G/30 ML LIQUID UDC GT SCH ×2 (09:11→21:00)
[2022-09-02] MEDS: levETIRAcetam 500 MG/5 ML LIQUID UDC GT SCH ×2 (09:11→21:00)
[2022-09-02] MEDS: REMEDY ESSENTIAL ZINC PASTE 113 GM TP SCH ×2 (09:12→21:00)
[2022-09-02] MEDS: LACOSAMIDE 100 MG/10 ML UDC GT SCH ×3 (09:12→21:37)
[2022-09-02] MEDS: MIDODRINE HCL 5 MG TABLET GT SCH ×2 (09:12→21:00)
[2022-09-02] MEDS: CHLORHEXIDINE GLUCONATE 15 ML MOUTHWASH MM SCH ×2 (09:12→17:30)
[2022-09-02] MEDS: VITAMINS A AND D OINT TP SCH (09:12)
[2022-09-02] MEDS: HYDROGEN PEROXIDE 3% 118 ML BOTTLE TOP SCH ×2 (09:44→21:13)
[2022-09-02] MEDS: FERROUS SULFATE 330 MG/7.5 ML UDC- FOR SA ONLY GT SCH (21:00)
[2022-09-02] MEDS: MULTIVIT, IRON, MIN NO. 8, FA TABLET GT SCH (21:00)
[2022-09-02] MEDS: SENNOSIDES 1 TABLET GT SCH (21:00)
[2022-09-02] MEDS: MELATONIN 3 MG TABLET GT SCH (21:00)
[2022-09-03] MEDS: POLYVINYL ALCOHOL OPHT DROPS 15 ML BOTTLE EACHEYE SCH ×6 (00:59→20:00)
[2022-09-03] MEDS: OMEPRAZOLE 40 MG CAPSULE.DR GT SCH (06:35)
[2022-09-03] MEDS: CHOLECALCIFEROL 1,000 UNIT TABLET GT SCH (06:35)
[2022-09-03] MEDS: BACLOFEN 10 MG TABLET GT SCH ×3 (06:35→22:56)
[2022-09-03] MEDS: METOCLOPRAMIDE HCL 10 MG TABLET GT SCH ×3 (06:35→18:23)
[2022-09-03 08:26] LABS: BILIRUBIN,TOTAL 0.4 mg/dL (0.2-1.0); CREATININE 0.8 mg/dL (0.6-1.3); MAGNESIUM 2.1 mg/dL (1.8-2.4); PHOSPHOROUS 4.1 mg/dL (2.5-4.9); POTASSIUM 3.8 mmol/L (3.5-5.1); TOTAL PROTEIN, SERUM 8.8 g/dL (6.4-8.2)
[2022-09-03 08:27] LABS: HEMATOCRIT 35.5 % (36.7-47.1); MEAN CORPUSCULAR HEMOGLOBIN 31.8 uug (23.8-33.4); MEAN CORPUSCULAR VOLUME 92.8 fL (73.0-96.2); PLATELET COUNT (AUTO) 274 K/uL (152-348)
[2022-09-03] MEDS: LACTULOSE 20 G/30 ML LIQUID UDC GT SCH ×2 (08:47→21:00)
[2022-09-03] MEDS: BISACODYL 10 MG SUPP.RECT RC SCH (08:47)
[2022-09-03] MEDS: MINERAL OIL/PETROLAT OPHT OINT 3.5 GM TUBE EACHEYE SCH ×2 (08:47→21:00)
[2022-09-03] MEDS: DESMOPRESSIN 0.1 MG TABLET GT SCH (08:49)
[2022-09-03] MEDS: DOCUSATE SODIUM 100 MG/10 ML LIQUID UDC GT SCH ×2 (08:49→21:00)
[2022-09-03] MEDS: MIDODRINE HCL 5 MG TABLET GT SCH ×2 (08:49→21:00)
[2022-09-03] MEDS: levETIRAcetam 500 MG/5 ML LIQUID UDC GT SCH ×2 (08:50→21:00)
[2022-09-03] MEDS: VITAMINS A AND D OINT TP SCH (08:50)
[2022-09-03] MEDS: CHLORHEXIDINE GLUCONATE 15 ML MOUTHWASH MM SCH ×2 (08:50→16:29)
[2022-09-03] MEDS: REMEDY ESSENTIAL ZINC PASTE 113 GM TP SCH ×2 (08:50→21:00)
[2022-09-03] MEDS: HYDROGEN PEROXIDE 3% 118 ML BOTTLE TOP SCH ×2 (09:38→21:00)
--- NOTE | 2022-09-03 11:22 | NUR ---
PT. WAS SEEN AND EXAMINED BY GLADIS Mata AND WITH NEW ORDERS CARRIED OUT.
--- NOTE | 2022-09-03 11:26 | NUR ---
PER ULTRASOUND DEPARTMENT ,PT. WILL BE ON NPO AFTER 4 AM AND ABDOMINAL ULTRASOUND WILL BE DONE TOMORROW AT 10 AM. AND CBC AND CMP ON 09/10/22 AND PT'S MOTHER AWARE AND IN AGREEMENT AND ORDERS CARRIED OUT.
[2022-09-03] MEDS: JEVITY 1.2 1000 ML LIQUID GT PRN (14:03)
[2022-09-03] MEDS: MULTIVIT, IRON, MIN NO. 8, FA TABLET GT SCH (21:00)
[2022-09-03] MEDS: FERROUS SULFATE 330 MG/7.5 ML UDC- FOR SA ONLY GT SCH (21:00)
[2022-09-03] MEDS: SENNOSIDES 1 TABLET GT SCH (21:00)
[2022-09-03] MEDS: LACOSAMIDE 100 MG/10 ML UDC GT SCH (21:00)
[2022-09-03] MEDS: MELATONIN 3 MG TABLET GT SCH (21:00)
[2022-09-04] MEDS: POLYVINYL ALCOHOL OPHT DROPS 15 ML BOTTLE EACHEYE SCH ×7 (04:33→23:13)
[2022-09-04] MEDS: METOCLOPRAMIDE HCL 10 MG TABLET GT SCH ×5 (06:47→23:11)
[2022-09-04] MEDS: CHOLECALCIFEROL 1,000 UNIT TABLET GT SCH (06:47)
[2022-09-04] MEDS: OMEPRAZOLE 40 MG CAPSULE.DR GT SCH (06:47)
[2022-09-04] MEDS: BACLOFEN 10 MG TABLET GT SCH ×3 (06:47→22:00)
[2022-09-04] MEDS: MINERAL OIL/PETROLAT OPHT OINT 3.5 GM TUBE EACHEYE SCH ×2 (08:16→21:00)
[2022-09-04] MEDS: levETIRAcetam 500 MG/5 ML LIQUID UDC GT SCH ×2 (08:16→21:00)
[2022-09-04] MEDS: DESMOPRESSIN 0.1 MG TABLET GT SCH (08:16)
[2022-09-04] MEDS: REMEDY ESSENTIAL ZINC PASTE 113 GM TP SCH ×2 (08:17→21:00)
[2022-09-04] MEDS: VITAMINS A AND D OINT TP SCH (08:17)
[2022-09-04] MEDS: LACOSAMIDE 100 MG/10 ML UDC GT SCH ×2 (08:17→21:00)
[2022-09-04] MEDS: CHLORHEXIDINE GLUCONATE 15 ML MOUTHWASH MM SCH ×2 (08:17→16:43)
[2022-09-04] MEDS: MIDODRINE HCL 5 MG TABLET GT SCH ×2 (08:17→21:00)
[2022-09-04] MEDS: HYDROGEN PEROXIDE 3% 118 ML BOTTLE TOP SCH ×2 (09:00→21:00)
--- NOTE | 2022-09-04 11:43 | NUR ---
Interdisciplinary plan of care conference was held on 09/04/22. Patient's mother, Mar, participated in the meeting via speaker phone. Dr. Griffith and the Interdisciplinary team reviewed the current plan of care in detail. Per nursing, liver panel function is elevated and ultrasound and labs were ordered. See RN IDT conference notes. No major changes in the patient's current condition were reported by nursing or by any of the other disciplines. See all other disciplines IDT notes and physicians's progress notes for additional details.
[2022-09-04] MEDS: LACTULOSE 20 G/30 ML LIQUID UDC GT SCH ×2 (12:23→21:00)
[2022-09-04] MEDS: DOCUSATE SODIUM 100 MG/10 ML LIQUID UDC GT SCH ×2 (12:23→21:00)
[2022-09-04] MEDS: JEVITY 1.2 1000 ML LIQUID GT PRN (18:46)
[2022-09-04] MEDS: MELATONIN 3 MG TABLET GT SCH (21:00)
[2022-09-04] MEDS: MULTIVIT, IRON, MIN NO. 8, FA TABLET GT SCH (21:00)
[2022-09-04] MEDS: FERROUS SULFATE 330 MG/7.5 ML UDC- FOR SA ONLY GT SCH (21:00)
[2022-09-04] MEDS: SENNOSIDES 1 TABLET GT SCH (21:00)
[2022-09-05] MEDS: POLYVINYL ALCOHOL OPHT DROPS 15 ML BOTTLE EACHEYE SCH ×5 (04:00→20:31)
[2022-09-05] MEDS: CHOLECALCIFEROL 1,000 UNIT TABLET GT SCH (06:00)
[2022-09-05] MEDS: METOCLOPRAMIDE HCL 10 MG TABLET GT SCH ×3 (06:00→17:43)
[2022-09-05] MEDS: OMEPRAZOLE 40 MG CAPSULE.DR GT SCH (06:00)
[2022-09-05] MEDS: BACLOFEN 10 MG TABLET GT SCH ×3 (06:00→21:47)
--- NOTE | 2022-09-05 07:53 | NUR ---
SHIFT NOTE: PT IS ALERT WITH EYES OPEN NONVERBAL PT GIVEN MEDICATION ORDERED NO ADVERSE REACTION FROM MEDIS AND PT GTUBE FLUSHED ORDERED NO SIGNS OF DISTENTION WILLL CONTINUE MONITOR.
[2022-09-05] MEDS: LACOSAMIDE 100 MG/10 ML UDC GT SCH ×2 (08:05→21:00)
[2022-09-05] MEDS: BISACODYL 10 MG SUPP.RECT RC SCH (08:05)
[2022-09-05] MEDS: LACTULOSE 20 G/30 ML LIQUID UDC GT SCH ×2 (08:05→21:41)
[2022-09-05] MEDS: levETIRAcetam 500 MG/5 ML LIQUID UDC GT SCH ×2 (08:08→21:44)
[2022-09-05] MEDS: CHLORHEXIDINE GLUCONATE 15 ML MOUTHWASH MM SCH ×2 (08:08→16:53)
[2022-09-05] MEDS: DESMOPRESSIN 0.1 MG TABLET GT SCH (08:08)
[2022-09-05] MEDS: MIDODRINE HCL 5 MG TABLET GT SCH ×2 (08:08→21:47)
[2022-09-05] MEDS: DOCUSATE SODIUM 100 MG/10 ML LIQUID UDC GT SCH ×2 (08:08→21:43)
[2022-09-05] MEDS: VITAMINS A AND D OINT TP SCH (08:09)
[2022-09-05] MEDS: REMEDY ESSENTIAL ZINC PASTE 113 GM TP SCH ×2 (08:09→21:47)
[2022-09-05] MEDS: MINERAL OIL/PETROLAT OPHT OINT 3.5 GM TUBE EACHEYE SCH ×2 (09:00→21:41)
[2022-09-05] MEDS: HYDROGEN PEROXIDE 3% 118 ML BOTTLE TOP SCH ×2 (09:08→19:19)
--- NOTE | 2022-09-05 15:00 | NUR ---
Covid 19 test result negative,Pt's mother Mar notified.
[2022-09-05] MEDS: JEVITY 1.2 1000 ML LIQUID GT PRN (18:20)
[2022-09-05] MEDS: FERROUS SULFATE 330 MG/7.5 ML UDC- FOR SA ONLY GT SCH (21:44)
[2022-09-05] MEDS: MELATONIN 3 MG TABLET GT SCH (21:45)
[2022-09-05] MEDS: MULTIVIT, IRON, MIN NO. 8, FA TABLET GT SCH (21:47)
[2022-09-05] MEDS: SENNOSIDES 1 TABLET GT SCH (21:47)
[2022-09-06] MEDS: POLYVINYL ALCOHOL OPHT DROPS 15 ML BOTTLE EACHEYE SCH ×6 (00:07→20:06)
[2022-09-06] MEDS: METOCLOPRAMIDE HCL 10 MG TABLET GT SCH ×4 (00:07→17:09)
[2022-09-06] MEDS: BACLOFEN 10 MG TABLET GT SCH ×3 (06:55→22:23)
[2022-09-06] MEDS: OMEPRAZOLE 40 MG CAPSULE.DR GT SCH (06:55)
[2022-09-06] MEDS: CHOLECALCIFEROL 1,000 UNIT TABLET GT SCH (06:55)
[2022-09-06] MEDS: HYDROGEN PEROXIDE 3% 118 ML BOTTLE TOP SCH ×2 (08:09→21:00)
[2022-09-06] MEDS: LACTULOSE 20 G/30 ML LIQUID UDC GT SCH ×2 (08:42→20:06)
[2022-09-06] MEDS: DESMOPRESSIN 0.1 MG TABLET GT SCH (08:42)
[2022-09-06] MEDS: DOCUSATE SODIUM 100 MG/10 ML LIQUID UDC GT SCH ×2 (08:42→20:07)
[2022-09-06] MEDS: MINERAL OIL/PETROLAT OPHT OINT 3.5 GM TUBE EACHEYE SCH ×2 (08:42→20:06)
[2022-09-06] MEDS: CHLORHEXIDINE GLUCONATE 15 ML MOUTHWASH MM SCH ×2 (08:43→17:09)
[2022-09-06] MEDS: VITAMINS A AND D OINT TP SCH (08:43)
[2022-09-06] MEDS: levETIRAcetam 500 MG/5 ML LIQUID UDC GT SCH ×2 (08:43→20:08)
[2022-09-06] MEDS: MIDODRINE HCL 5 MG TABLET GT SCH ×2 (08:43→20:11)
[2022-09-06] MEDS: REMEDY ESSENTIAL ZINC PASTE 113 GM TP SCH ×2 (08:43→20:16)
[2022-09-06] MEDS: LACOSAMIDE 100 MG/10 ML UDC GT SCH ×2 (08:43→20:16)
[2022-09-06] MEDS: FERROUS SULFATE 330 MG/7.5 ML UDC- FOR SA ONLY GT SCH (20:08)
[2022-09-06] MEDS: MELATONIN 3 MG TABLET GT SCH (20:08)
[2022-09-06] MEDS: SENNOSIDES 1 TABLET GT SCH (20:15)
[2022-09-06] MEDS: MULTIVIT, IRON, MIN NO. 8, FA TABLET GT SCH (20:16)
[2022-09-07] MEDS: JEVITY 1.2 1000 ML LIQUID GT PRN (03:16)
[2022-09-07] MEDS: POLYVINYL ALCOHOL OPHT DROPS 15 ML BOTTLE EACHEYE SCH ×7 (04:00→23:57)
[2022-09-07] MEDS: BACLOFEN 10 MG TABLET GT SCH ×3 (05:34→22:00)
[2022-09-07] MEDS: CHOLECALCIFEROL 1,000 UNIT TABLET GT SCH (05:34)
[2022-09-07] MEDS: OMEPRAZOLE 40 MG CAPSULE.DR GT SCH (05:34)
[2022-09-07] MEDS: METOCLOPRAMIDE HCL 10 MG TABLET GT SCH ×5 (05:34→23:56)
[2022-09-07] MEDS: HYDROGEN PEROXIDE 3% 118 ML BOTTLE TOP SCH ×2 (07:40→21:22)
[2022-09-07] MEDS: LACTULOSE 20 G/30 ML LIQUID UDC GT SCH ×2 (09:12→21:00)
[2022-09-07] MEDS: BISACODYL 10 MG SUPP.RECT RC SCH (09:12)
[2022-09-07] MEDS: DESMOPRESSIN 0.1 MG TABLET GT SCH (09:12)
[2022-09-07] MEDS: MINERAL OIL/PETROLAT OPHT OINT 3.5 GM TUBE EACHEYE SCH ×2 (09:12→21:00)
[2022-09-07] MEDS: DOCUSATE SODIUM 100 MG/10 ML LIQUID UDC GT SCH ×2 (09:12→21:00)
[2022-09-07] MEDS: VITAMINS A AND D OINT TP SCH (09:13)
[2022-09-07] MEDS: REMEDY ESSENTIAL ZINC PASTE 113 GM TP SCH ×2 (09:13→21:00)
[2022-09-07] MEDS: levETIRAcetam 500 MG/5 ML LIQUID UDC GT SCH ×2 (09:13→21:00)
[2022-09-07] MEDS: MIDODRINE HCL 5 MG TABLET GT SCH ×2 (09:13→21:00)
[2022-09-07] MEDS: CHLORHEXIDINE GLUCONATE 15 ML MOUTHWASH MM SCH ×2 (09:13→17:12)
[2022-09-07] MEDS: LACOSAMIDE 100 MG/10 ML UDC GT SCH ×2 (09:13→21:00)
--- NOTE | 2022-09-07 16:17 | NUR ---
DR. JENNIFER ROJO WAS NOTIFIED WITH A MESSAGE THAT PT'S MOTHER WANTS TO SPEAK TO INTERNAL MEDICINE DR. BOSWELL: HEPATOMEGALY AND ELEVATED LIVER ENZYMES.
--- NOTE | 2022-09-07 19:05 | NUR ---
DR.TIM ROJO CALLED BACK ND WITH NEW ORDERS AND STATED THAT WHEN HE REVIEW THE CASE AND KNOWS THE RESULTS OF THIS TEST HE WILL TALK TO PT'S MOTHER ABOUT CURRENT MEDICAL CONDITION AND ANSWER HER QUESTIONS.
[2022-09-07] MEDS: SENNOSIDES 1 TABLET GT SCH (21:00)
[2022-09-07] MEDS: MELATONIN 3 MG TABLET GT SCH (21:00)
[2022-09-07] MEDS: MULTIVIT, IRON, MIN NO. 8, FA TABLET GT SCH (21:00)
[2022-09-07] MEDS: FERROUS SULFATE 330 MG/7.5 ML UDC- FOR SA ONLY GT SCH (21:00)
--- NOTE | 2022-09-08 | NUR ---
Patient BP is 101/66 does not required midodrine
[2022-09-08] MEDS: POLYVINYL ALCOHOL OPHT DROPS 15 ML BOTTLE EACHEYE SCH ×6 (04:41→23:16)
[2022-09-08] MEDS: JEVITY 1.2 1000 ML LIQUID GT PRN (06:00)
[2022-09-08] MEDS: BACLOFEN 10 MG TABLET GT SCH ×3 (06:47→21:56)
[2022-09-08] MEDS: CHOLECALCIFEROL 1,000 UNIT TABLET GT SCH (06:48)
[2022-09-08] MEDS: METOCLOPRAMIDE HCL 10 MG TABLET GT SCH ×4 (06:48→23:16)
[2022-09-08] MEDS: OMEPRAZOLE 40 MG CAPSULE.DR GT SCH (06:48)
[2022-09-08 08:48] LABS: THYROID STIMULATING HORMONE 1.781 mIU/mL (0.358-3.740)
[2022-09-08] MEDS: HYDROGEN PEROXIDE 3% 118 ML BOTTLE TOP SCH ×2 (09:00→21:15)
[2022-09-08] MEDS: DESMOPRESSIN 0.1 MG TABLET GT SCH (09:20)
[2022-09-08] MEDS: levETIRAcetam 500 MG/5 ML LIQUID UDC GT SCH ×2 (09:20→20:07)
[2022-09-08] MEDS: DOCUSATE SODIUM 100 MG/10 ML LIQUID UDC GT SCH ×2 (09:20→20:09)
[2022-09-08] MEDS: MINERAL OIL/PETROLAT OPHT OINT 3.5 GM TUBE EACHEYE SCH ×2 (09:20→20:03)
[2022-09-08] MEDS: LACOSAMIDE 100 MG/10 ML UDC GT SCH ×2 (09:20→20:29)
[2022-09-08] MEDS: MIDODRINE HCL 5 MG TABLET GT SCH ×2 (09:20→20:30)
[2022-09-08] MEDS: REMEDY ESSENTIAL ZINC PASTE 113 GM TP SCH ×2 (09:20→21:56)
[2022-09-08] MEDS: CHLORHEXIDINE GLUCONATE 15 ML MOUTHWASH MM SCH ×2 (09:20→16:02)
[2022-09-08] MEDS: LACTULOSE 20 G/30 ML LIQUID UDC GT SCH ×2 (09:20→20:07)
[2022-09-08] MEDS: VITAMINS A AND D OINT TP SCH (09:21)
[2022-09-08] MEDS: FERROUS SULFATE 330 MG/7.5 ML UDC- FOR SA ONLY GT SCH (20:10)
[2022-09-08] MEDS: MELATONIN 3 MG TABLET GT SCH (20:12)
[2022-09-08] MEDS: MULTIVIT, IRON, MIN NO. 8, FA TABLET GT SCH (20:13)
[2022-09-08] MEDS: SENNOSIDES 1 TABLET GT SCH (20:14)
[2022-09-09] MEDS: POLYVINYL ALCOHOL OPHT DROPS 15 ML BOTTLE EACHEYE SCH ×6 (04:43→23:19)
[2022-09-09] MEDS: OMEPRAZOLE 40 MG CAPSULE.DR GT SCH (06:00)
[2022-09-09] MEDS: METOCLOPRAMIDE HCL 10 MG TABLET GT SCH ×4 (06:00→23:19)
[2022-09-09] MEDS: CHOLECALCIFEROL 1,000 UNIT TABLET GT SCH (06:00)
[2022-09-09] MEDS: BACLOFEN 10 MG TABLET GT SCH ×3 (06:00→21:42)
[2022-09-09] MEDS: DESMOPRESSIN 0.1 MG TABLET GT SCH (08:15)
[2022-09-09] MEDS: LACTULOSE 20 G/30 ML LIQUID UDC GT SCH ×2 (08:15→21:41)
[2022-09-09] MEDS: DOCUSATE SODIUM 100 MG/10 ML LIQUID UDC GT SCH ×2 (08:15→21:41)
[2022-09-09] MEDS: levETIRAcetam 500 MG/5 ML LIQUID UDC GT SCH ×2 (08:15→21:41)
[2022-09-09] MEDS: MINERAL OIL/PETROLAT OPHT OINT 3.5 GM TUBE EACHEYE SCH ×2 (08:15→21:41)
[2022-09-09] MEDS: LACOSAMIDE 100 MG/10 ML UDC GT SCH ×2 (08:16→21:42)
[2022-09-09] MEDS: MIDODRINE HCL 5 MG TABLET GT SCH ×2 (08:16→21:42)
[2022-09-09] MEDS: REMEDY ESSENTIAL ZINC PASTE 113 GM TP SCH ×2 (08:16→21:42)
[2022-09-09] MEDS: VITAMINS A AND D OINT TP SCH (08:16)
[2022-09-09] MEDS: CHLORHEXIDINE GLUCONATE 15 ML MOUTHWASH MM SCH ×2 (08:16→17:55)
[2022-09-09] MEDS: HYDROGEN PEROXIDE 3% 118 ML BOTTLE TOP SCH ×2 (09:00→21:04)
[2022-09-09] MEDS: JEVITY 1.2 1000 ML LIQUID GT PRN (18:30)
[2022-09-09] MEDS: FERROUS SULFATE 330 MG/7.5 ML UDC- FOR SA ONLY GT SCH (21:41)
[2022-09-09] MEDS: MELATONIN 3 MG TABLET GT SCH (21:41)
[2022-09-09] MEDS: MULTIVIT, IRON, MIN NO. 8, FA TABLET GT SCH (21:42)
[2022-09-09] MEDS: SENNOSIDES 1 TABLET GT SCH (21:42)
[2022-09-10] MEDS: POLYVINYL ALCOHOL OPHT DROPS 15 ML BOTTLE EACHEYE SCH ×6 (04:00→23:03)
[2022-09-10] MEDS: OMEPRAZOLE 40 MG CAPSULE.DR GT SCH (05:26)
[2022-09-10] MEDS: CHOLECALCIFEROL 1,000 UNIT TABLET GT SCH (05:26)
[2022-09-10] MEDS: BACLOFEN 10 MG TABLET GT SCH ×3 (05:26→22:35)
[2022-09-10] MEDS: METOCLOPRAMIDE HCL 10 MG TABLET GT SCH ×4 (05:26→23:03)
[2022-09-10] MEDS: BISACODYL 10 MG SUPP.RECT RC SCH (08:13)
[2022-09-10 09:23] LABS: HEMATOCRIT 34.1 % (36.7-47.1); MEAN CORPUSCULAR HEMOGLOBIN 31.8 uug (23.8-33.4); PLATELET COUNT (AUTO) 280 K/uL (152-348)
[2022-09-10] MEDS: DOCUSATE SODIUM 100 MG/10 ML LIQUID UDC GT SCH ×2 (09:25→20:29)
[2022-09-10] MEDS: LACTULOSE 20 G/30 ML LIQUID UDC GT SCH ×2 (09:25→20:29)
[2022-09-10] MEDS: DESMOPRESSIN 0.1 MG TABLET GT SCH (09:25)
[2022-09-10] MEDS: levETIRAcetam 500 MG/5 ML LIQUID UDC GT SCH ×2 (09:25→20:29)
[2022-09-10] MEDS: MINERAL OIL/PETROLAT OPHT OINT 3.5 GM TUBE EACHEYE SCH ×2 (09:25→20:29)
[2022-09-10] MEDS: CHLORHEXIDINE GLUCONATE 15 ML MOUTHWASH MM SCH ×2 (09:27→16:52)
[2022-09-10] MEDS: VITAMINS A AND D OINT TP SCH (09:27)
[2022-09-10] MEDS: MIDODRINE HCL 5 MG TABLET GT SCH ×2 (09:27→20:30)
[2022-09-10] MEDS: REMEDY ESSENTIAL ZINC PASTE 113 GM TP SCH ×2 (09:27→20:30)
[2022-09-10] MEDS: LACOSAMIDE 100 MG/10 ML UDC GT SCH ×2 (09:27→20:30)
[2022-09-10 09:38] LABS: BILIRUBIN,TOTAL 0.4 mg/dL (0.2-1.0); POTASSIUM 3.5 mmol/L (3.5-5.1); TOTAL PROTEIN, SERUM 8.5 g/dL (6.4-8.2)
[2022-09-10] MEDS: HYDROGEN PEROXIDE 3% 118 ML BOTTLE TOP SCH ×2 (09:41→20:30)
[2022-09-10] MEDS: MELATONIN 3 MG TABLET GT SCH (20:29)
[2022-09-10] MEDS: FERROUS SULFATE 330 MG/7.5 ML UDC- FOR SA ONLY GT SCH (20:29)
[2022-09-10] MEDS: MULTIVIT, IRON, MIN NO. 8, FA TABLET GT SCH (20:30)
[2022-09-10] MEDS: SENNOSIDES 1 TABLET GT SCH (20:31)
[2022-09-11] MEDS: POLYVINYL ALCOHOL OPHT DROPS 15 ML BOTTLE EACHEYE SCH ×5 (04:20→20:00)
[2022-09-11] MEDS: METOCLOPRAMIDE HCL 10 MG TABLET GT SCH ×3 (05:34→17:09)
[2022-09-11] MEDS: BACLOFEN 10 MG TABLET GT SCH ×3 (05:34→22:00)
[2022-09-11] MEDS: OMEPRAZOLE 40 MG CAPSULE.DR GT SCH (05:34)
[2022-09-11] MEDS: CHOLECALCIFEROL 1,000 UNIT TABLET GT SCH (05:34)
[2022-09-11] MEDS: MINERAL OIL/PETROLAT OPHT OINT 3.5 GM TUBE EACHEYE SCH ×2 (08:35→20:17)
[2022-09-11] MEDS: DOCUSATE SODIUM 100 MG/10 ML LIQUID UDC GT SCH ×2 (08:37→20:18)
[2022-09-11] MEDS: DESMOPRESSIN 0.1 MG TABLET GT SCH (08:38)
[2022-09-11] MEDS: levETIRAcetam 500 MG/5 ML LIQUID UDC GT SCH ×2 (08:40→20:19)
[2022-09-11] MEDS: MIDODRINE HCL 5 MG TABLET GT SCH ×2 (08:41→20:21)
[2022-09-11] MEDS: VITAMINS A AND D OINT TP SCH (08:41)
[2022-09-11] MEDS: REMEDY ESSENTIAL ZINC PASTE 113 GM TP SCH ×2 (08:42→20:22)
[2022-09-11] MEDS: LACOSAMIDE 100 MG/10 ML UDC GT SCH ×2 (08:45→21:00)
[2022-09-11] MEDS: CHLORHEXIDINE GLUCONATE 15 ML MOUTHWASH MM SCH ×2 (08:46→16:36)
[2022-09-11] MEDS: LACTULOSE 20 G/30 ML LIQUID UDC GT SCH ×2 (09:00→20:18)
[2022-09-11] MEDS: HYDROGEN PEROXIDE 3% 118 ML BOTTLE TOP SCH ×2 (09:55→19:36)
--- NOTE | 2022-09-11 11:17 | NUR ---
RECEIVED PATIENT IN ROOM EYES OPEN PT IS NONVERBAL MEDICATION GIVEN ORDERED NO SIGNS OF ADVERSE REACTION FROM MEDICATION NO SIGNS OF DISTRESS NOTED. GT TUBE FLUSHED ORDER PT TOLERATED WELL NO SIGNS OF DISTENTION OR EMESIS FROM FLUSH OR FEEDING. WILL CONTINUE TO MONITOR FOR FALL AND SAFETY.
[2022-09-11] MEDS: FERROUS SULFATE 330 MG/7.5 ML UDC- FOR SA ONLY GT SCH (20:18)
[2022-09-11] MEDS: MELATONIN 3 MG TABLET GT SCH (20:19)
[2022-09-11] MEDS: SENNOSIDES 1 TABLET GT SCH (20:21)
[2022-09-11] MEDS: MULTIVIT, IRON, MIN NO. 8, FA TABLET GT SCH (20:21)
[2022-09-12] MEDS: POLYVINYL ALCOHOL OPHT DROPS 15 ML BOTTLE EACHEYE SCH ×6 (00:03→20:00)
[2022-09-12] MEDS: METOCLOPRAMIDE HCL 10 MG TABLET GT SCH ×4 (00:03→17:42)
[2022-09-12] MEDS: CHOLECALCIFEROL 1,000 UNIT TABLET GT SCH (05:34)
[2022-09-12] MEDS: BACLOFEN 10 MG TABLET GT SCH ×3 (05:34→22:24)
[2022-09-12] MEDS: OMEPRAZOLE 40 MG CAPSULE.DR GT SCH (05:34)
[2022-09-12] MEDS: BISACODYL 10 MG SUPP.RECT RC SCH (08:56)
[2022-09-12] MEDS: MINERAL OIL/PETROLAT OPHT OINT 3.5 GM TUBE EACHEYE SCH ×2 (08:56→20:17)
[2022-09-12] MEDS: LACTULOSE 20 G/30 ML LIQUID UDC GT SCH ×2 (08:57→20:17)
[2022-09-12] MEDS: DOCUSATE SODIUM 100 MG/10 ML LIQUID UDC GT SCH ×2 (09:03→20:17)
[2022-09-12] MEDS: CHLORHEXIDINE GLUCONATE 15 ML MOUTHWASH MM SCH ×2 (09:06→16:58)
[2022-09-12] MEDS: levETIRAcetam 500 MG/5 ML LIQUID UDC GT SCH ×2 (09:06→20:17)
[2022-09-12] MEDS: REMEDY ESSENTIAL ZINC PASTE 113 GM TP SCH ×2 (09:06→20:24)
[2022-09-12] MEDS: DESMOPRESSIN 0.1 MG TABLET GT SCH (09:06)
[2022-09-12] MEDS: VITAMINS A AND D OINT TP SCH (09:07)
[2022-09-12] MEDS: LACOSAMIDE 100 MG/10 ML UDC GT SCH ×2 (09:07→20:24)
[2022-09-12] MEDS: MIDODRINE HCL 5 MG TABLET GT SCH ×2 (09:14→20:23)
[2022-09-12] MEDS: HYDROGEN PEROXIDE 3% 118 ML BOTTLE TOP SCH ×2 (09:24→21:56)
--- NOTE | 2022-09-12 10:30 | NUR ---
RADHIKA provided through email information about advanced directives to the patient's mother, Mar Garica ([phone]). Addendum: 09/13/22 at 1505 by KARRI GARRIDO RADHIKA provided through mail information about conservatorship. Addendum: 09/13/22 at 1516 by KARRI GARRIDO RADHIKA provided the information on conservatorship to the patient's mother, Mar Garcia, in person.
[2022-09-12] MEDS: FERROUS SULFATE 330 MG/7.5 ML UDC- FOR SA ONLY GT SCH (20:17)
[2022-09-12] MEDS: MELATONIN 3 MG TABLET GT SCH (20:20)
[2022-09-12] MEDS: MULTIVIT, IRON, MIN NO. 8, FA TABLET GT SCH (20:24)
[2022-09-12] MEDS: SENNOSIDES 1 TABLET GT SCH (20:24)
[2022-09-13] MEDS: METOCLOPRAMIDE HCL 10 MG TABLET GT SCH ×4 (00:10→17:37)
[2022-09-13] MEDS: POLYVINYL ALCOHOL OPHT DROPS 15 ML BOTTLE EACHEYE SCH ×6 (00:10→20:00)
[2022-09-13] MEDS: CHOLECALCIFEROL 1,000 UNIT TABLET GT SCH (05:56)
[2022-09-13] MEDS: OMEPRAZOLE 40 MG CAPSULE.DR GT SCH (05:56)
[2022-09-13] MEDS: BACLOFEN 10 MG TABLET GT SCH ×3 (05:56→22:00)
[2022-09-13] MEDS: MINERAL OIL/PETROLAT OPHT OINT 3.5 GM TUBE EACHEYE SCH ×2 (08:40→20:11)
[2022-09-13] MEDS: LACTULOSE 20 G/30 ML LIQUID UDC GT SCH ×2 (08:40→20:11)
[2022-09-13] MEDS: DESMOPRESSIN 0.1 MG TABLET GT SCH (08:41)
[2022-09-13] MEDS: DOCUSATE SODIUM 100 MG/10 ML LIQUID UDC GT SCH ×2 (08:41→20:11)
[2022-09-13] MEDS: MIDODRINE HCL 5 MG TABLET GT SCH ×2 (08:42→20:16)
[2022-09-13] MEDS: levETIRAcetam 500 MG/5 ML LIQUID UDC GT SCH ×2 (08:42→20:12)
[2022-09-13] MEDS: VITAMINS A AND D OINT TP SCH (08:43)
[2022-09-13] MEDS: LACOSAMIDE 100 MG/10 ML UDC GT SCH ×2 (08:43→21:00)
[2022-09-13] MEDS: REMEDY ESSENTIAL ZINC PASTE 113 GM TP SCH ×2 (08:43→20:17)
[2022-09-13] MEDS: CHLORHEXIDINE GLUCONATE 15 ML MOUTHWASH MM SCH ×2 (08:43→17:37)
[2022-09-13] MEDS: HYDROGEN PEROXIDE 3% 118 ML BOTTLE TOP SCH ×2 (09:00→19:31)
--- NOTE | 2022-09-13 12:21 | NUR ---
PT. WAS SEEN AND EXAMINED BY DR. MARIA AND WITH NNO.
[2022-09-13] MEDS: FERROUS SULFATE 330 MG/7.5 ML UDC- FOR SA ONLY GT SCH (20:11)
[2022-09-13] MEDS: MELATONIN 3 MG TABLET GT SCH (20:14)
[2022-09-13] MEDS: MULTIVIT, IRON, MIN NO. 8, FA TABLET GT SCH (20:17)
[2022-09-13] MEDS: SENNOSIDES 1 TABLET GT SCH (20:17)
[2022-09-14] MEDS: POLYVINYL ALCOHOL OPHT DROPS 15 ML BOTTLE EACHEYE SCH ×7 (00:27→23:51)
[2022-09-14] MEDS: METOCLOPRAMIDE HCL 10 MG TABLET GT SCH ×5 (00:27→23:51)
[2022-09-14] MEDS: BACLOFEN 10 MG TABLET GT SCH ×3 (05:25→22:00)
[2022-09-14] MEDS: CHOLECALCIFEROL 1,000 UNIT TABLET GT SCH (05:25)
[2022-09-14] MEDS: OMEPRAZOLE 40 MG CAPSULE.DR GT SCH (05:25)
[2022-09-14 08:06] LABS: HEPATITIS A AB, IgM Negative (Negative); HEPATITIS A AB, TOTAL Positive (Negative); HEPATITIS B SURFACE AG Negative (Negative); HEPATITIS Be ANTIGEN Negative (Negative)
[2022-09-14] MEDS: HYDROGEN PEROXIDE 3% 118 ML BOTTLE TOP SCH ×2 (08:39→19:10)
[2022-09-14] MEDS: DOCUSATE SODIUM 100 MG/10 ML LIQUID UDC GT SCH ×2 (09:07→20:09)
[2022-09-14] MEDS: LACTULOSE 20 G/30 ML LIQUID UDC GT SCH ×2 (09:07→20:09)
[2022-09-14] MEDS: levETIRAcetam 500 MG/5 ML LIQUID UDC GT SCH ×2 (09:07→20:10)
[2022-09-14] MEDS: MINERAL OIL/PETROLAT OPHT OINT 3.5 GM TUBE EACHEYE SCH ×2 (09:07→20:08)
[2022-09-14] MEDS: DESMOPRESSIN 0.1 MG TABLET GT SCH (09:07)
[2022-09-14] MEDS: BISACODYL 10 MG SUPP.RECT RC SCH (09:07)
[2022-09-14] MEDS: VITAMINS A AND D OINT TP SCH (09:08)
[2022-09-14] MEDS: MIDODRINE HCL 5 MG TABLET GT SCH ×2 (09:08→20:11)
[2022-09-14] MEDS: CHLORHEXIDINE GLUCONATE 15 ML MOUTHWASH MM SCH ×2 (09:08→16:54)
[2022-09-14] MEDS: REMEDY ESSENTIAL ZINC PASTE 113 GM TP SCH ×2 (09:08→20:13)
[2022-09-14] MEDS: LACOSAMIDE 100 MG/10 ML UDC GT SCH ×2 (09:08→20:14)
[2022-09-14] MEDS: FERROUS SULFATE 330 MG/7.5 ML UDC- FOR SA ONLY GT SCH (20:09)
[2022-09-14] MEDS: MELATONIN 3 MG TABLET GT SCH (20:10)
[2022-09-14] MEDS: SENNOSIDES 1 TABLET GT SCH (20:11)
[2022-09-14] MEDS: MULTIVIT, IRON, MIN NO. 8, FA TABLET GT SCH (20:12)
[2022-09-15] MEDS: POLYVINYL ALCOHOL OPHT DROPS 15 ML BOTTLE EACHEYE SCH ×5 (04:11→20:02)
[2022-09-15] MEDS: BACLOFEN 10 MG TABLET GT SCH ×3 (05:05→22:26)
[2022-09-15] MEDS: OMEPRAZOLE 40 MG CAPSULE.DR GT SCH (05:06)
[2022-09-15] MEDS: METOCLOPRAMIDE HCL 10 MG TABLET GT SCH ×3 (05:06→17:08)
[2022-09-15] MEDS: CHOLECALCIFEROL 1,000 UNIT TABLET GT SCH (05:06)
[2022-09-15] MEDS: HYDROGEN PEROXIDE 3% 118 ML BOTTLE TOP SCH ×2 (07:34→21:29)
[2022-09-15] MEDS: MINERAL OIL/PETROLAT OPHT OINT 3.5 GM TUBE EACHEYE SCH ×2 (08:36→20:24)
[2022-09-15] MEDS: LACTULOSE 20 G/30 ML LIQUID UDC GT SCH ×2 (08:36→20:02)
[2022-09-15] MEDS: DOCUSATE SODIUM 100 MG/10 ML LIQUID UDC GT SCH ×2 (08:37→20:02)
[2022-09-15] MEDS: DESMOPRESSIN 0.1 MG TABLET GT SCH (08:37)
[2022-09-15] MEDS: MIDODRINE HCL 5 MG TABLET GT SCH ×2 (08:38→20:23)
[2022-09-15] MEDS: LACOSAMIDE 100 MG/10 ML UDC GT SCH ×2 (08:40→20:19)
[2022-09-15] MEDS: VITAMINS A AND D OINT TP SCH (08:40)
[2022-09-15] MEDS: REMEDY ESSENTIAL ZINC PASTE 113 GM TP SCH ×2 (08:40→20:23)
[2022-09-15] MEDS: CHLORHEXIDINE GLUCONATE 15 ML MOUTHWASH MM SCH ×2 (08:40→17:08)
[2022-09-15] MEDS: levETIRAcetam 500 MG/5 ML LIQUID UDC GT SCH ×2 (08:47→20:04)
[2022-09-15] MEDS: JEVITY 1.2 1000 ML LIQUID GT PRN (17:29)
[2022-09-15] MEDS: FERROUS SULFATE 330 MG/7.5 ML UDC- FOR SA ONLY GT SCH (20:03)
[2022-09-15] MEDS: MELATONIN 3 MG TABLET GT SCH (20:04)
[2022-09-15] MEDS: SENNOSIDES 1 TABLET GT SCH (20:05)
[2022-09-15] MEDS: MULTIVIT, IRON, MIN NO. 8, FA TABLET GT SCH (20:23)
[2022-09-16] MEDS: POLYVINYL ALCOHOL OPHT DROPS 15 ML BOTTLE EACHEYE SCH ×7 (00:38→23:19)
[2022-09-16] MEDS: METOCLOPRAMIDE HCL 10 MG TABLET GT SCH ×5 (00:38→23:19)
[2022-09-16] MEDS: CHOLECALCIFEROL 1,000 UNIT TABLET GT SCH (05:04)
[2022-09-16] MEDS: BACLOFEN 10 MG TABLET GT SCH ×3 (05:04→22:00)
[2022-09-16] MEDS: OMEPRAZOLE 40 MG CAPSULE.DR GT SCH (05:04)
[2022-09-16] MEDS: HYDROGEN PEROXIDE 3% 118 ML BOTTLE TOP SCH ×2 (09:00→20:25)
[2022-09-16] MEDS: LACTULOSE 20 G/30 ML LIQUID UDC GT SCH ×2 (09:08→20:24)
[2022-09-16] MEDS: levETIRAcetam 500 MG/5 ML LIQUID UDC GT SCH ×2 (09:08→20:24)
[2022-09-16] MEDS: CHLORHEXIDINE GLUCONATE 15 ML MOUTHWASH MM SCH ×2 (09:08→16:36)
[2022-09-16] MEDS: DESMOPRESSIN 0.1 MG TABLET GT SCH (09:08)
[2022-09-16] MEDS: DOCUSATE SODIUM 100 MG/10 ML LIQUID UDC GT SCH ×2 (09:08→20:24)
[2022-09-16] MEDS: MINERAL OIL/PETROLAT OPHT OINT 3.5 GM TUBE EACHEYE SCH ×2 (09:08→20:24)
[2022-09-16] MEDS: LACOSAMIDE 100 MG/10 ML UDC GT SCH ×2 (09:08→20:25)
[2022-09-16] MEDS: REMEDY ESSENTIAL ZINC PASTE 113 GM TP SCH ×2 (09:08→20:25)
[2022-09-16] MEDS: VITAMINS A AND D OINT TP SCH (09:08)
[2022-09-16] MEDS: MIDODRINE HCL 5 MG TABLET GT SCH ×2 (09:08→20:25)
[2022-09-16] MEDS: MELATONIN 3 MG TABLET GT SCH (20:24)
[2022-09-16] MEDS: FERROUS SULFATE 330 MG/7.5 ML UDC- FOR SA ONLY GT SCH (20:24)
[2022-09-16] MEDS: SENNOSIDES 1 TABLET GT SCH (20:25)
[2022-09-16] MEDS: MULTIVIT, IRON, MIN NO. 8, FA TABLET GT SCH (20:25)
[2022-09-17] MEDS: POLYVINYL ALCOHOL OPHT DROPS 15 ML BOTTLE EACHEYE SCH ×5 (04:41→21:12)
[2022-09-17] MEDS: CHOLECALCIFEROL 1,000 UNIT TABLET GT SCH (05:21)
[2022-09-17] MEDS: BACLOFEN 10 MG TABLET GT SCH ×3 (05:21→21:35)
[2022-09-17] MEDS: METOCLOPRAMIDE HCL 10 MG TABLET GT SCH ×3 (05:21→17:04)
[2022-09-17] MEDS: OMEPRAZOLE 40 MG CAPSULE.DR GT SCH (05:21)
[2022-09-17] MEDS: LACTULOSE 20 G/30 ML LIQUID UDC GT SCH ×2 (08:15→21:20)
[2022-09-17] MEDS: MINERAL OIL/PETROLAT OPHT OINT 3.5 GM TUBE EACHEYE SCH ×2 (08:15→21:20)
[2022-09-17] MEDS: BISACODYL 10 MG SUPP.RECT RC SCH (08:15)
[2022-09-17] MEDS: levETIRAcetam 500 MG/5 ML LIQUID UDC GT SCH ×2 (08:16→21:26)
[2022-09-17] MEDS: DOCUSATE SODIUM 100 MG/10 ML LIQUID UDC GT SCH ×2 (08:16→21:24)
[2022-09-17] MEDS: DESMOPRESSIN 0.1 MG TABLET GT SCH (08:16)
[2022-09-17] MEDS: MIDODRINE HCL 5 MG TABLET GT SCH ×2 (08:17→21:30)
[2022-09-17] MEDS: LACOSAMIDE 100 MG/10 ML UDC GT SCH ×2 (08:18→21:34)
[2022-09-17] MEDS: CHLORHEXIDINE GLUCONATE 15 ML MOUTHWASH MM SCH ×2 (08:18→17:04)
[2022-09-17] MEDS: VITAMINS A AND D OINT TP SCH (08:25)
[2022-09-17] MEDS: REMEDY ESSENTIAL ZINC PASTE 113 GM TP SCH ×2 (08:25→21:34)
--- NOTE | 2022-09-17 08:28 | NUR ---
RADHIKA notified patient's mother, Mar by email that the next IDT meeting for the patient is scheduled for 09/25/2022 at 11am. RADHIKA asked Mar to let RADHIKA know if she would like to participate in the meeting by speaker phone.
[2022-09-17] MEDS: HYDROGEN PEROXIDE 3% 118 ML BOTTLE TOP SCH ×2 (09:14→21:03)
--- NOTE | 2022-09-17 11:44 | NUR ---
MESSAGE LEFT TO DR. JENNIFER ROJO RE: TO REMIND HIM TO TALK TO PT'S MOTHER FRANICSCO RE:HEPATOMEGALY AND RESULTS OF LAB RESULTS THAT HE PREVIOUSLY ORDERED IN ORDER TO ASSESS PT. D/T CONTINUOUS WT. GAIN TOO.
--- NOTE | 2022-09-17 12:30 | NUR ---
SEEN AND EXAMINED BY GLADIS Mata AND WITH SHARANO.
[2022-09-17] MEDS: JEVITY 1.2 1000 ML LIQUID GT PRN (18:33)
[2022-09-17] MEDS: MELATONIN 3 MG TABLET GT SCH (21:29)
[2022-09-17] MEDS: SENNOSIDES 1 TABLET GT SCH (21:31)
[2022-09-17] MEDS: MULTIVIT, IRON, MIN NO. 8, FA TABLET GT SCH (21:31)
[2022-09-17] MEDS: FERROUS SULFATE 330 MG/7.5 ML UDC- FOR SA ONLY GT SCH (21:37)
[2022-09-18] MEDS: METOCLOPRAMIDE HCL 10 MG TABLET GT SCH ×4 (00:48→18:00)
[2022-09-18] MEDS: POLYVINYL ALCOHOL OPHT DROPS 15 ML BOTTLE EACHEYE SCH ×6 (00:48→20:00)
[2022-09-18] MEDS: OMEPRAZOLE 40 MG CAPSULE.DR GT SCH (06:45)
[2022-09-18] MEDS: CHOLECALCIFEROL 1,000 UNIT TABLET GT SCH (06:45)
[2022-09-18] MEDS: BACLOFEN 10 MG TABLET GT SCH ×3 (06:45→22:24)
[2022-09-18] MEDS: HYDROGEN PEROXIDE 3% 118 ML BOTTLE TOP SCH ×2 (07:39→21:00)
[2022-09-18] MEDS: MINERAL OIL/PETROLAT OPHT OINT 3.5 GM TUBE EACHEYE SCH ×2 (09:24→20:15)
[2022-09-18] MEDS: LACTULOSE 20 G/30 ML LIQUID UDC GT SCH ×2 (09:24→20:15)
[2022-09-18] MEDS: DOCUSATE SODIUM 100 MG/10 ML LIQUID UDC GT SCH ×2 (09:24→20:15)
[2022-09-18] MEDS: DESMOPRESSIN 0.1 MG TABLET GT SCH (09:25)
[2022-09-18] MEDS: levETIRAcetam 500 MG/5 ML LIQUID UDC GT SCH ×2 (09:25→20:16)
[2022-09-18] MEDS: MIDODRINE HCL 5 MG TABLET GT SCH ×2 (09:25→21:00)
[2022-09-18] MEDS: CHLORHEXIDINE GLUCONATE 15 ML MOUTHWASH MM SCH ×2 (09:26→16:19)
[2022-09-18] MEDS: VITAMINS A AND D OINT TP SCH (09:26)
[2022-09-18] MEDS: REMEDY ESSENTIAL ZINC PASTE 113 GM TP SCH ×2 (09:26→20:19)
[2022-09-18] MEDS: LACOSAMIDE 100 MG/10 ML UDC GT SCH ×2 (09:26→20:18)
[2022-09-18] MEDS: JEVITY 1.2 1000 ML LIQUID GT PRN (18:19)
[2022-09-18] MEDS: FERROUS SULFATE 330 MG/7.5 ML UDC- FOR SA ONLY GT SCH (20:15)
[2022-09-18] MEDS: MELATONIN 3 MG TABLET GT SCH (20:17)
[2022-09-18] MEDS: SENNOSIDES 1 TABLET GT SCH (20:18)
[2022-09-18] MEDS: MULTIVIT, IRON, MIN NO. 8, FA TABLET GT SCH (20:18)
[2022-09-19] MEDS: METOCLOPRAMIDE HCL 10 MG TABLET GT SCH ×5 (00:18→23:32)
[2022-09-19] MEDS: POLYVINYL ALCOHOL OPHT DROPS 15 ML BOTTLE EACHEYE SCH ×7 (00:18→23:31)
[2022-09-19] MEDS: BACLOFEN 10 MG TABLET GT SCH ×3 (05:16→22:20)
[2022-09-19] MEDS: OMEPRAZOLE 40 MG CAPSULE.DR GT SCH (05:16)
[2022-09-19] MEDS: CHOLECALCIFEROL 1,000 UNIT TABLET GT SCH (05:18)
[2022-09-19] MEDS: MINERAL OIL/PETROLAT OPHT OINT 3.5 GM TUBE EACHEYE SCH ×2 (08:58→20:29)
[2022-09-19] MEDS: DOCUSATE SODIUM 100 MG/10 ML LIQUID UDC GT SCH ×2 (08:58→20:29)
[2022-09-19] MEDS: BISACODYL 10 MG SUPP.RECT RC SCH (08:58)
[2022-09-19] MEDS: LACTULOSE 20 G/30 ML LIQUID UDC GT SCH ×2 (08:58→20:29)
[2022-09-19] MEDS: DESMOPRESSIN 0.1 MG TABLET GT SCH (08:59)
[2022-09-19] MEDS: levETIRAcetam 500 MG/5 ML LIQUID UDC GT SCH ×2 (08:59→20:29)
[2022-09-19] MEDS: MIDODRINE HCL 5 MG TABLET GT SCH ×2 (09:00→20:30)
[2022-09-19] MEDS: LACOSAMIDE 100 MG/10 ML UDC GT SCH ×2 (09:00→20:30)
[2022-09-19] MEDS: CHLORHEXIDINE GLUCONATE 15 ML MOUTHWASH MM SCH ×2 (09:00→17:10)
[2022-09-19] MEDS: REMEDY ESSENTIAL ZINC PASTE 113 GM TP SCH ×2 (09:00→20:30)
[2022-09-19] MEDS: VITAMINS A AND D OINT TP SCH (09:01)
[2022-09-19] MEDS: HYDROGEN PEROXIDE 3% 118 ML BOTTLE TOP SCH ×2 (09:08→21:48)
--- NOTE | 2022-09-19 16:11 | NUR ---
Covid 19 test result negative,Pt's mother Mar notified.
[2022-09-19] MEDS: MELATONIN 3 MG TABLET GT SCH (20:29)
[2022-09-19] MEDS: FERROUS SULFATE 330 MG/7.5 ML UDC- FOR SA ONLY GT SCH (20:29)
[2022-09-19] MEDS: SENNOSIDES 1 TABLET GT SCH (20:30)
[2022-09-19] MEDS: MULTIVIT, IRON, MIN NO. 8, FA TABLET GT SCH (20:30)
[2022-09-19] MEDS: JEVITY 1.2 1000 ML LIQUID GT PRN (22:20)
[2022-09-20] MEDS: POLYVINYL ALCOHOL OPHT DROPS 15 ML BOTTLE EACHEYE SCH ×5 (04:00→20:07)
[2022-09-20] MEDS: BACLOFEN 10 MG TABLET GT SCH ×3 (05:21→22:00)
[2022-09-20] MEDS: METOCLOPRAMIDE HCL 10 MG TABLET GT SCH ×3 (05:21→17:46)
[2022-09-20] MEDS: OMEPRAZOLE 40 MG CAPSULE.DR GT SCH (05:21)
[2022-09-20] MEDS: CHOLECALCIFEROL 1,000 UNIT TABLET GT SCH (05:22)
[2022-09-20] MEDS: HYDROGEN PEROXIDE 3% 118 ML BOTTLE TOP SCH ×2 (09:18→20:54)
[2022-09-20] MEDS: DESMOPRESSIN 0.1 MG TABLET GT SCH (09:23)
[2022-09-20] MEDS: levETIRAcetam 500 MG/5 ML LIQUID UDC GT SCH ×2 (09:23→20:07)
[2022-09-20] MEDS: LACOSAMIDE 100 MG/10 ML UDC GT SCH ×2 (09:23→21:00)
[2022-09-20] MEDS: LACTULOSE 20 G/30 ML LIQUID UDC GT SCH ×2 (09:23→20:07)
[2022-09-20] MEDS: MINERAL OIL/PETROLAT OPHT OINT 3.5 GM TUBE EACHEYE SCH ×2 (09:23→20:07)
[2022-09-20] MEDS: DOCUSATE SODIUM 100 MG/10 ML LIQUID UDC GT SCH ×2 (09:23→20:07)
[2022-09-20] MEDS: MIDODRINE HCL 5 MG TABLET GT SCH ×2 (09:23→21:00)
[2022-09-20] MEDS: VITAMINS A AND D OINT TP SCH (09:24)
[2022-09-20] MEDS: REMEDY ESSENTIAL ZINC PASTE 113 GM TP SCH ×2 (09:24→20:07)
[2022-09-20] MEDS: CHLORHEXIDINE GLUCONATE 15 ML MOUTHWASH MM SCH ×2 (09:24→16:36)
[2022-09-20] MEDS: MULTIVIT, IRON, MIN NO. 8, FA TABLET GT SCH (20:07)
[2022-09-20] MEDS: MELATONIN 3 MG TABLET GT SCH (20:07)
[2022-09-20] MEDS: SENNOSIDES 1 TABLET GT SCH (20:07)
[2022-09-20] MEDS: FERROUS SULFATE 330 MG/7.5 ML UDC- FOR SA ONLY GT SCH (20:07)
[2022-09-21] MEDS: JEVITY 1.2 1000 ML LIQUID GT PRN (02:59)
[2022-09-21] MEDS: POLYVINYL ALCOHOL OPHT DROPS 15 ML BOTTLE EACHEYE SCH ×7 (04:30→23:04)
[2022-09-21] MEDS: CHOLECALCIFEROL 1,000 UNIT TABLET GT SCH (05:37)
[2022-09-21] MEDS: BACLOFEN 10 MG TABLET GT SCH ×3 (05:37→21:09)
[2022-09-21] MEDS: METOCLOPRAMIDE HCL 10 MG TABLET GT SCH ×5 (05:37→23:04)
[2022-09-21] MEDS: OMEPRAZOLE 40 MG CAPSULE.DR GT SCH (05:37)
[2022-09-21] MEDS: HYDROGEN PEROXIDE 3% 118 ML BOTTLE TOP SCH ×2 (08:00→21:27)
[2022-09-21] MEDS: DOCUSATE SODIUM 100 MG/10 ML LIQUID UDC GT SCH ×2 (08:51→21:09)
[2022-09-21] MEDS: MINERAL OIL/PETROLAT OPHT OINT 3.5 GM TUBE EACHEYE SCH ×2 (08:51→20:49)
[2022-09-21] MEDS: LACTULOSE 20 G/30 ML LIQUID UDC GT SCH ×2 (08:51→20:49)
[2022-09-21] MEDS: DESMOPRESSIN 0.1 MG TABLET GT SCH (08:51)
[2022-09-21] MEDS: BISACODYL 10 MG SUPP.RECT RC SCH (08:51)
[2022-09-21] MEDS: CHLORHEXIDINE GLUCONATE 15 ML MOUTHWASH MM SCH ×2 (08:51→16:59)
[2022-09-21] MEDS: levETIRAcetam 500 MG/5 ML LIQUID UDC GT SCH ×2 (08:51→20:49)
[2022-09-21] MEDS: LACOSAMIDE 100 MG/10 ML UDC GT SCH ×2 (08:51→21:08)
[2022-09-21] MEDS: MIDODRINE HCL 5 MG TABLET GT SCH ×2 (08:51→20:55)
[2022-09-21] MEDS: VITAMINS A AND D OINT TP SCH (08:52)
[2022-09-21] MEDS: REMEDY ESSENTIAL ZINC PASTE 113 GM TP SCH ×2 (08:52→20:54)
[2022-09-21] MEDS: FERROUS SULFATE 330 MG/7.5 ML UDC- FOR SA ONLY GT SCH (20:50)
[2022-09-21] MEDS: MELATONIN 3 MG TABLET GT SCH (20:51)
[2022-09-21] MEDS: MULTIVIT, IRON, MIN NO. 8, FA TABLET GT SCH (20:51)
[2022-09-21] MEDS: SENNOSIDES 1 TABLET GT SCH (20:51)
[2022-09-22] MEDS: POLYVINYL ALCOHOL OPHT DROPS 15 ML BOTTLE EACHEYE SCH ×5 (04:00→20:44)
[2022-09-22] MEDS: METOCLOPRAMIDE HCL 10 MG TABLET GT SCH ×3 (05:07→17:06)
[2022-09-22] MEDS: OMEPRAZOLE 40 MG CAPSULE.DR GT SCH (05:07)
[2022-09-22] MEDS: CHOLECALCIFEROL 1,000 UNIT TABLET GT SCH (05:07)
[2022-09-22] MEDS: BACLOFEN 10 MG TABLET GT SCH ×3 (05:07→22:07)
[2022-09-22] MEDS: JEVITY 1.2 1000 ML LIQUID GT PRN (05:13)
[2022-09-22] MEDS: HYDROGEN PEROXIDE 3% 118 ML BOTTLE TOP SCH ×2 (07:40→21:04)
[2022-09-22] MEDS: MINERAL OIL/PETROLAT OPHT OINT 3.5 GM TUBE EACHEYE SCH ×2 (09:20→20:44)
[2022-09-22] MEDS: LACTULOSE 20 G/30 ML LIQUID UDC GT SCH ×2 (09:20→20:44)
[2022-09-22] MEDS: DOCUSATE SODIUM 100 MG/10 ML LIQUID UDC GT SCH ×2 (09:20→20:44)
[2022-09-22] MEDS: DESMOPRESSIN 0.1 MG TABLET GT SCH (09:22)
[2022-09-22] MEDS: levETIRAcetam 500 MG/5 ML LIQUID UDC GT SCH ×2 (09:22→20:44)
[2022-09-22] MEDS: LACOSAMIDE 100 MG/10 ML UDC GT SCH ×2 (09:23→20:45)
[2022-09-22] MEDS: VITAMINS A AND D OINT TP SCH (09:23)
[2022-09-22] MEDS: CHLORHEXIDINE GLUCONATE 15 ML MOUTHWASH MM SCH ×2 (09:23→17:06)
[2022-09-22] MEDS: MIDODRINE HCL 5 MG TABLET GT SCH ×2 (09:23→20:45)
[2022-09-22] MEDS: REMEDY ESSENTIAL ZINC PASTE 113 GM TP SCH ×2 (09:23→20:45)
[2022-09-22] MEDS: MELATONIN 3 MG TABLET GT SCH (20:44)
[2022-09-22] MEDS: FERROUS SULFATE 330 MG/7.5 ML UDC- FOR SA ONLY GT SCH (20:44)
[2022-09-22] MEDS: SENNOSIDES 1 TABLET GT SCH (20:45)
[2022-09-22] MEDS: MULTIVIT, IRON, MIN NO. 8, FA TABLET GT SCH (20:45)
[2022-09-23] MEDS: METOCLOPRAMIDE HCL 10 MG TABLET GT SCH ×4 (00:27→17:30)
[2022-09-23] MEDS: POLYVINYL ALCOHOL OPHT DROPS 15 ML BOTTLE EACHEYE SCH ×6 (00:27→20:00)
[2022-09-23] MEDS: OMEPRAZOLE 40 MG CAPSULE.DR GT SCH (05:20)
[2022-09-23] MEDS: BACLOFEN 10 MG TABLET GT SCH ×3 (05:20→21:40)
[2022-09-23] MEDS: CHOLECALCIFEROL 1,000 UNIT TABLET GT SCH (05:20)
[2022-09-23] MEDS: HYDROGEN PEROXIDE 3% 118 ML BOTTLE TOP SCH ×2 (08:17→21:10)
[2022-09-23] MEDS: MINERAL OIL/PETROLAT OPHT OINT 3.5 GM TUBE EACHEYE SCH ×2 (08:34→21:29)
[2022-09-23] MEDS: LACTULOSE 20 G/30 ML LIQUID UDC GT SCH ×2 (08:34→21:31)
[2022-09-23] MEDS: DOCUSATE SODIUM 100 MG/10 ML LIQUID UDC GT SCH ×2 (08:35→21:31)
[2022-09-23] MEDS: DESMOPRESSIN 0.1 MG TABLET GT SCH (08:36)
[2022-09-23] MEDS: levETIRAcetam 500 MG/5 ML LIQUID UDC GT SCH ×2 (08:37→21:33)
[2022-09-23] MEDS: LACOSAMIDE 100 MG/10 ML UDC GT SCH ×2 (08:39→21:47)
[2022-09-23] MEDS: CHLORHEXIDINE GLUCONATE 15 ML MOUTHWASH MM SCH ×2 (08:46→16:32)
[2022-09-23] MEDS: VITAMINS A AND D OINT TP SCH (08:46)
[2022-09-23] MEDS: REMEDY ESSENTIAL ZINC PASTE 113 GM TP SCH ×2 (08:46→21:41)
[2022-09-23] MEDS: MIDODRINE HCL 5 MG TABLET GT SCH ×2 (09:00→21:37)
--- NOTE | 2022-09-23 18:04 | NUR ---
Covid 19 test done as ordered,per [facility] requirement.
[2022-09-23] MEDS: FERROUS SULFATE 330 MG/7.5 ML UDC- FOR SA ONLY GT SCH (21:34)
[2022-09-23] MEDS: SENNOSIDES 1 TABLET GT SCH (21:38)
[2022-09-23] MEDS: MELATONIN 3 MG TABLET GT SCH (21:41)
[2022-09-23] MEDS: MULTIVIT, IRON, MIN NO. 8, FA TABLET GT SCH (21:48)
[2022-09-24] MEDS: POLYVINYL ALCOHOL OPHT DROPS 15 ML BOTTLE EACHEYE SCH ×6 (04:00→20:36)
[2022-09-24] MEDS: BACLOFEN 10 MG TABLET GT SCH ×3 (06:19→22:21)
[2022-09-24] MEDS: METOCLOPRAMIDE HCL 10 MG TABLET GT SCH ×4 (06:21→17:18)
[2022-09-24] MEDS: OMEPRAZOLE 40 MG CAPSULE.DR GT SCH (06:21)
[2022-09-24] MEDS: CHOLECALCIFEROL 1,000 UNIT TABLET GT SCH (06:22)
[2022-09-24 06:50] LABS: HEMATOCRIT 34.3 % (36.7-47.1); MEAN CORPUSCULAR HEMOGLOBIN 31.7 uug (23.8-33.4); MEAN CORPUSCULAR VOLUME 93.2 fL (73.0-96.2); PLATELET COUNT (AUTO) 267 K/uL (152-348)
[2022-09-24 07:18] LABS: BILIRUBIN,TOTAL 0.4 mg/dL (0.2-1.0); CREATININE 0.8 mg/dL (0.6-1.3); MAGNESIUM 2.2 mg/dL (1.8-2.4); PHOSPHOROUS 4.1 mg/dL (2.5-4.9); POTASSIUM 3.7 mmol/L (3.5-5.1); TOTAL PROTEIN, SERUM 8.7 g/dL (6.4-8.2)
[2022-09-24] MEDS: BISACODYL 10 MG SUPP.RECT RC SCH (08:13)
[2022-09-24] MEDS: MINERAL OIL/PETROLAT OPHT OINT 3.5 GM TUBE EACHEYE SCH ×2 (09:33→20:36)
[2022-09-24] MEDS: MIDODRINE HCL 5 MG TABLET GT SCH ×2 (09:34→20:36)
[2022-09-24] MEDS: LACTULOSE 20 G/30 ML LIQUID UDC GT SCH ×2 (09:34→20:36)
[2022-09-24] MEDS: DOCUSATE SODIUM 100 MG/10 ML LIQUID UDC GT SCH ×2 (09:34→20:36)
[2022-09-24] MEDS: levETIRAcetam 500 MG/5 ML LIQUID UDC GT SCH ×2 (09:34→20:36)
[2022-09-24] MEDS: LACOSAMIDE 100 MG/10 ML UDC GT SCH ×2 (09:36→20:37)
[2022-09-24] MEDS: VITAMINS A AND D OINT TP SCH (09:37)
[2022-09-24] MEDS: REMEDY ESSENTIAL ZINC PASTE 113 GM TP SCH ×2 (09:37→20:37)
[2022-09-24] MEDS: CHLORHEXIDINE GLUCONATE 15 ML MOUTHWASH MM SCH ×2 (09:37→17:18)
[2022-09-24] MEDS: HYDROGEN PEROXIDE 3% 118 ML BOTTLE TOP SCH ×2 (09:41→21:46)
[2022-09-24] MEDS: DESMOPRESSIN 0.1 MG TABLET GT SCH (09:42)
--- NOTE | 2022-09-24 09:57 | NUR ---
DR. ROD WILL REVIEW LAB RESULTS (LABS THAT DR. JENNIFER ROJO ORDERED BEFORE IN ORDER TO FIND OUT RE:HEPATOMEGALY AND ESCALATING WT. GAIN EVEN THOUGH TUBE FEEDING RATE WAS DECREASED TO THE MAXIMUM,SEE NOTES) IT WAS HEPATITIS PANEL,CORTISOL LEVEL AND ,THYROD ETC. ,SEE NOTES AND HE SAID HE WILL REVIEW THE CASE AND ALSO HE WAS AWARE THAT PT'S MOTHER WANTS TO SPEAK TO MD ABOUT IT.
[2022-09-24] MEDS: FERROUS SULFATE 330 MG/7.5 ML UDC- FOR SA ONLY GT SCH (20:36)
[2022-09-24] MEDS: MELATONIN 3 MG TABLET GT SCH (20:36)
[2022-09-24] MEDS: SENNOSIDES 1 TABLET GT SCH (20:36)
[2022-09-24] MEDS: MULTIVIT, IRON, MIN NO. 8, FA TABLET GT SCH (20:37)
[2022-09-25] MEDS: POLYVINYL ALCOHOL OPHT DROPS 15 ML BOTTLE EACHEYE SCH ×6 (00:26→20:29)
[2022-09-25] MEDS: METOCLOPRAMIDE HCL 10 MG TABLET GT SCH ×4 (00:26→17:22)
[2022-09-25] MEDS: BACLOFEN 10 MG TABLET GT SCH ×3 (05:00→22:10)
[2022-09-25] MEDS: OMEPRAZOLE 40 MG CAPSULE.DR GT SCH (05:00)
[2022-09-25] MEDS: CHOLECALCIFEROL 1,000 UNIT TABLET GT SCH (05:00)
[2022-09-25] MEDS: HYDROGEN PEROXIDE 3% 118 ML BOTTLE TOP SCH ×2 (08:46→21:12)
[2022-09-25] MEDS: VITAMINS A AND D OINT TP SCH (09:08)
[2022-09-25] MEDS: DOCUSATE SODIUM 100 MG/10 ML LIQUID UDC GT SCH ×2 (09:08→20:29)
[2022-09-25] MEDS: DESMOPRESSIN 0.1 MG TABLET GT SCH (09:08)
[2022-09-25] MEDS: LACTULOSE 20 G/30 ML LIQUID UDC GT SCH ×2 (09:08→20:29)
[2022-09-25] MEDS: LACOSAMIDE 100 MG/10 ML UDC GT SCH ×2 (09:08→20:29)
[2022-09-25] MEDS: levETIRAcetam 500 MG/5 ML LIQUID UDC GT SCH ×2 (09:08→20:29)
[2022-09-25] MEDS: CHLORHEXIDINE GLUCONATE 15 ML MOUTHWASH MM SCH ×2 (09:08→17:22)
[2022-09-25] MEDS: MIDODRINE HCL 5 MG TABLET GT SCH ×2 (09:08→20:29)
[2022-09-25] MEDS: REMEDY ESSENTIAL ZINC PASTE 113 GM TP SCH ×2 (09:08→20:29)
[2022-09-25] MEDS: MINERAL OIL/PETROLAT OPHT OINT 3.5 GM TUBE EACHEYE SCH ×2 (09:08→20:29)
--- NOTE | 2022-09-25 11:43 | NUR ---
Interdisciplinary plan of care conference was held on 09/25/22. Patient's mother, Mar, participated in the meeting via speaker phone. Dr. Griffith and the Interdisciplinary team reviewed the current plan of care in detail. Per nursing, liver panel function is elevated and the lab tests were done today. See RN IDT conference notes. No major changes in the patient's current condition were reported by nursing or by any of the other disciplines. See all other disciplines IDT notes and physicians's progress notes for additional details.
[2022-09-25] MEDS: MELATONIN 3 MG TABLET GT SCH (20:29)
[2022-09-25] MEDS: MULTIVIT, IRON, MIN NO. 8, FA TABLET GT SCH (20:29)
[2022-09-25] MEDS: FERROUS SULFATE 330 MG/7.5 ML UDC- FOR SA ONLY GT SCH (20:29)
[2022-09-25] MEDS: SENNOSIDES 1 TABLET GT SCH (20:29)
[2022-09-26] MEDS: POLYVINYL ALCOHOL OPHT DROPS 15 ML BOTTLE EACHEYE SCH ×6 (04:00→20:25)
[2022-09-26] MEDS: METOCLOPRAMIDE HCL 10 MG TABLET GT SCH ×4 (05:07→17:55)
[2022-09-26] MEDS: OMEPRAZOLE 40 MG CAPSULE.DR GT SCH (05:07)
[2022-09-26] MEDS: JEVITY 1.2 1000 ML LIQUID GT PRN (05:07)
[2022-09-26] MEDS: CHOLECALCIFEROL 1,000 UNIT TABLET GT SCH (05:07)
[2022-09-26] MEDS: BACLOFEN 10 MG TABLET GT SCH ×3 (05:07→21:37)
[2022-09-26] MEDS: HYDROGEN PEROXIDE 3% 118 ML BOTTLE TOP SCH ×2 (08:19→21:22)
[2022-09-26] MEDS: LACTULOSE 20 G/30 ML LIQUID UDC GT SCH ×2 (08:43→20:40)
[2022-09-26] MEDS: BISACODYL 10 MG SUPP.RECT RC SCH (08:43)
[2022-09-26] MEDS: MINERAL OIL/PETROLAT OPHT OINT 3.5 GM TUBE EACHEYE SCH ×2 (08:43→20:40)
[2022-09-26] MEDS: DOCUSATE SODIUM 100 MG/10 ML LIQUID UDC GT SCH ×2 (08:44→20:40)
[2022-09-26] MEDS: DESMOPRESSIN 0.1 MG TABLET GT SCH (08:45)
[2022-09-26] MEDS: levETIRAcetam 500 MG/5 ML LIQUID UDC GT SCH ×2 (08:45→20:40)
[2022-09-26] MEDS: MIDODRINE HCL 5 MG TABLET GT SCH ×2 (08:45→20:41)
[2022-09-26] MEDS: REMEDY ESSENTIAL ZINC PASTE 113 GM TP SCH ×2 (08:46→20:41)
[2022-09-26] MEDS: CHLORHEXIDINE GLUCONATE 15 ML MOUTHWASH MM SCH ×2 (08:46→17:55)
[2022-09-26] MEDS: LACOSAMIDE 100 MG/10 ML UDC GT SCH ×2 (08:46→20:41)
[2022-09-26] MEDS: VITAMINS A AND D OINT TP SCH (08:47)
[2022-09-26] MEDS: FERROUS SULFATE 330 MG/7.5 ML UDC- FOR SA ONLY GT SCH (20:40)
[2022-09-26] MEDS: MULTIVIT, IRON, MIN NO. 8, FA TABLET GT SCH (20:41)
[2022-09-26] MEDS: MELATONIN 3 MG TABLET GT SCH (20:41)
[2022-09-26] MEDS: SENNOSIDES 1 TABLET GT SCH (20:41)
[2022-09-27] MEDS: POLYVINYL ALCOHOL OPHT DROPS 15 ML BOTTLE EACHEYE SCH ×6 (04:20→20:19)
[2022-09-27] MEDS: CHOLECALCIFEROL 1,000 UNIT TABLET GT SCH (06:00)
[2022-09-27] MEDS: OMEPRAZOLE 40 MG CAPSULE.DR GT SCH (06:00)
[2022-09-27] MEDS: METOCLOPRAMIDE HCL 10 MG TABLET GT SCH ×4 (06:00→18:02)
[2022-09-27] MEDS: BACLOFEN 10 MG TABLET GT SCH ×3 (06:00→21:37)
[2022-09-27] MEDS: HYDROGEN PEROXIDE 3% 118 ML BOTTLE TOP SCH ×2 (07:23→19:11)
[2022-09-27] MEDS: MINERAL OIL/PETROLAT OPHT OINT 3.5 GM TUBE EACHEYE SCH ×2 (08:55→20:30)
[2022-09-27] MEDS: DESMOPRESSIN 0.1 MG TABLET GT SCH (09:07)
[2022-09-27] MEDS: DOCUSATE SODIUM 100 MG/10 ML LIQUID UDC GT SCH ×2 (09:07→20:30)
[2022-09-27] MEDS: LACTULOSE 20 G/30 ML LIQUID UDC GT SCH ×2 (09:07→20:30)
[2022-09-27] MEDS: levETIRAcetam 500 MG/5 ML LIQUID UDC GT SCH ×2 (09:07→20:30)
[2022-09-27] MEDS: LACOSAMIDE 100 MG/10 ML UDC GT SCH ×2 (09:08→20:30)
[2022-09-27] MEDS: CHLORHEXIDINE GLUCONATE 15 ML MOUTHWASH MM SCH ×2 (09:08→17:00)
[2022-09-27] MEDS: VITAMINS A AND D OINT TP SCH (09:09)
[2022-09-27] MEDS: REMEDY ESSENTIAL ZINC PASTE 113 GM TP SCH ×2 (09:09→20:30)
[2022-09-27] MEDS: MIDODRINE HCL 5 MG TABLET GT SCH ×2 (09:25→20:30)
[2022-09-27] MEDS: SENNOSIDES 1 TABLET GT SCH (20:30)
[2022-09-27] MEDS: MULTIVIT, IRON, MIN NO. 8, FA TABLET GT SCH (20:30)
[2022-09-27] MEDS: JEVITY 1.2 1000 ML LIQUID GT PRN (20:30)
[2022-09-27] MEDS: MELATONIN 3 MG TABLET GT SCH (20:30)
[2022-09-27] MEDS: FERROUS SULFATE 330 MG/7.5 ML UDC- FOR SA ONLY GT SCH (20:30)
[2022-09-28] MEDS: POLYVINYL ALCOHOL OPHT DROPS 15 ML BOTTLE EACHEYE SCH ×6 (00:44→20:21)
[2022-09-28] MEDS: METOCLOPRAMIDE HCL 10 MG TABLET GT SCH ×4 (00:44→17:25)
[2022-09-28] MEDS: OMEPRAZOLE 40 MG CAPSULE.DR GT SCH (05:01)
[2022-09-28] MEDS: CHOLECALCIFEROL 1,000 UNIT TABLET GT SCH (05:01)
[2022-09-28] MEDS: BACLOFEN 10 MG TABLET GT SCH ×3 (05:01→22:03)
[2022-09-28] MEDS: HYDROGEN PEROXIDE 3% 118 ML BOTTLE TOP SCH ×2 (07:22→19:21)
[2022-09-28] MEDS: BISACODYL 10 MG SUPP.RECT RC SCH (07:57)
[2022-09-28] MEDS: MINERAL OIL/PETROLAT OPHT OINT 3.5 GM TUBE EACHEYE SCH ×2 (09:21→20:21)
[2022-09-28] MEDS: LACTULOSE 20 G/30 ML LIQUID UDC GT SCH ×2 (09:21→20:23)
[2022-09-28] MEDS: DOCUSATE SODIUM 100 MG/10 ML LIQUID UDC GT SCH ×2 (09:22→20:24)
[2022-09-28] MEDS: DESMOPRESSIN 0.1 MG TABLET GT SCH (09:22)
[2022-09-28] MEDS: levETIRAcetam 500 MG/5 ML LIQUID UDC GT SCH ×2 (09:22→20:27)
[2022-09-28] MEDS: CHLORHEXIDINE GLUCONATE 15 ML MOUTHWASH MM SCH ×2 (09:23→17:25)
[2022-09-28] MEDS: VITAMINS A AND D OINT TP SCH (09:23)
[2022-09-28] MEDS: LACOSAMIDE 100 MG/10 ML UDC GT SCH ×2 (09:23→20:37)
[2022-09-28] MEDS: REMEDY ESSENTIAL ZINC PASTE 113 GM TP SCH ×2 (09:23→20:30)
[2022-09-28] MEDS: MIDODRINE HCL 5 MG TABLET GT SCH ×2 (09:28→20:28)
--- NOTE | 2022-09-28 16:09 | NUR ---
SEEN BY GLADIS Benson AND WITH NNO.
[2022-09-28] MEDS: FERROUS SULFATE 330 MG/7.5 ML UDC- FOR SA ONLY GT SCH (20:26)
[2022-09-28] MEDS: MELATONIN 3 MG TABLET GT SCH (20:27)
[2022-09-28] MEDS: SENNOSIDES 1 TABLET GT SCH (20:29)
[2022-09-28] MEDS: MULTIVIT, IRON, MIN NO. 8, FA TABLET GT SCH (20:30)
[2022-09-29] MEDS: POLYVINYL ALCOHOL OPHT DROPS 15 ML BOTTLE EACHEYE SCH ×6 (04:00→20:12)
[2022-09-29] MEDS: BACLOFEN 10 MG TABLET GT SCH ×3 (05:37→22:00)
[2022-09-29] MEDS: OMEPRAZOLE 40 MG CAPSULE.DR GT SCH (05:37)
[2022-09-29] MEDS: METOCLOPRAMIDE HCL 10 MG TABLET GT SCH ×4 (05:37→17:23)
[2022-09-29] MEDS: CHOLECALCIFEROL 1,000 UNIT TABLET GT SCH (05:38)
[2022-09-29] MEDS: HYDROGEN PEROXIDE 3% 118 ML BOTTLE TOP SCH ×2 (08:20→20:59)
[2022-09-29] MEDS: MINERAL OIL/PETROLAT OPHT OINT 3.5 GM TUBE EACHEYE SCH ×2 (08:35→20:39)
[2022-09-29] MEDS: MIDODRINE HCL 5 MG TABLET GT SCH ×2 (08:36→20:41)
[2022-09-29] MEDS: DESMOPRESSIN 0.1 MG TABLET GT SCH (08:37)
[2022-09-29] MEDS: levETIRAcetam 500 MG/5 ML LIQUID UDC GT SCH ×2 (08:37→20:39)
[2022-09-29] MEDS: LACTULOSE 20 G/30 ML LIQUID UDC GT SCH ×2 (08:37→20:39)
[2022-09-29] MEDS: DOCUSATE SODIUM 100 MG/10 ML LIQUID UDC GT SCH ×2 (08:37→20:39)
[2022-09-29] MEDS: LACOSAMIDE 100 MG/10 ML UDC GT SCH ×2 (08:37→20:46)
[2022-09-29] MEDS: REMEDY ESSENTIAL ZINC PASTE 113 GM TP SCH ×2 (08:38→20:41)
[2022-09-29] MEDS: CHLORHEXIDINE GLUCONATE 15 ML MOUTHWASH MM SCH ×2 (08:38→16:21)
[2022-09-29] MEDS: VITAMINS A AND D OINT TP SCH (08:38)
[2022-09-29] MEDS: JEVITY 1.2 1000 ML LIQUID GT PRN (16:23)
[2022-09-29] MEDS: FERROUS SULFATE 330 MG/7.5 ML UDC- FOR SA ONLY GT SCH (20:39)
[2022-09-29] MEDS: MULTIVIT, IRON, MIN NO. 8, FA TABLET GT SCH (20:41)
[2022-09-29] MEDS: SENNOSIDES 1 TABLET GT SCH (20:41)
[2022-09-29] MEDS: MELATONIN 3 MG TABLET GT SCH (20:41)
[2022-09-30] MEDS: POLYVINYL ALCOHOL OPHT DROPS 15 ML BOTTLE EACHEYE SCH ×7 (00:49→23:41)
[2022-09-30] MEDS: METOCLOPRAMIDE HCL 10 MG TABLET GT SCH ×5 (00:49→23:41)
[2022-09-30] MEDS: OMEPRAZOLE 40 MG CAPSULE.DR GT SCH (06:11)
[2022-09-30] MEDS: BACLOFEN 10 MG TABLET GT SCH ×3 (06:11→21:04)
[2022-09-30] MEDS: CHOLECALCIFEROL 1,000 UNIT TABLET GT SCH (06:11)
[2022-09-30] MEDS: LACTULOSE 20 G/30 ML LIQUID UDC GT SCH ×2 (08:17→20:47)
[2022-09-30] MEDS: MINERAL OIL/PETROLAT OPHT OINT 3.5 GM TUBE EACHEYE SCH ×2 (08:17→20:42)
[2022-09-30] MEDS: DOCUSATE SODIUM 100 MG/10 ML LIQUID UDC GT SCH ×2 (08:17→20:56)
[2022-09-30] MEDS: DESMOPRESSIN 0.1 MG TABLET GT SCH (08:18)
[2022-09-30] MEDS: CHLORHEXIDINE GLUCONATE 15 ML MOUTHWASH MM SCH ×2 (08:19→17:18)
[2022-09-30] MEDS: MIDODRINE HCL 5 MG TABLET GT SCH ×2 (08:19→20:40)
[2022-09-30] MEDS: levETIRAcetam 500 MG/5 ML LIQUID UDC GT SCH ×2 (08:19→20:45)
[2022-09-30] MEDS: REMEDY ESSENTIAL ZINC PASTE 113 GM TP SCH ×2 (08:19→20:57)
[2022-09-30] MEDS: VITAMINS A AND D OINT TP SCH (08:19)
[2022-09-30] MEDS: LACOSAMIDE 100 MG/10 ML UDC GT SCH ×2 (08:19→21:16)
[2022-09-30] MEDS: HYDROGEN PEROXIDE 3% 118 ML BOTTLE TOP SCH ×2 (08:36→20:51)
[2022-09-30] MEDS: MELATONIN 3 MG TABLET GT SCH (20:56)
[2022-09-30] MEDS: FERROUS SULFATE 330 MG/7.5 ML UDC- FOR SA ONLY GT SCH (20:56)
[2022-09-30] MEDS: MULTIVIT, IRON, MIN NO. 8, FA TABLET GT SCH (21:01)
[2022-09-30] MEDS: SENNOSIDES 1 TABLET GT SCH (21:03)
[2022-10-01] MEDS: POLYVINYL ALCOHOL OPHT DROPS 15 ML BOTTLE EACHEYE SCH ×5 (04:46→20:00)
[2022-10-01] MEDS: OMEPRAZOLE 40 MG CAPSULE.DR GT SCH (05:11)
[2022-10-01] MEDS: METOCLOPRAMIDE HCL 10 MG TABLET GT SCH ×3 (05:11→17:12)
[2022-10-01] MEDS: CHOLECALCIFEROL 1,000 UNIT TABLET GT SCH (05:11)
[2022-10-01] MEDS: BACLOFEN 10 MG TABLET GT SCH ×3 (05:11→21:56)
[2022-10-01] MEDS: BISACODYL 10 MG SUPP.RECT RC SCH (08:07)
[2022-10-01] MEDS: LACTULOSE 20 G/30 ML LIQUID UDC GT SCH ×2 (08:07→21:44)
[2022-10-01] MEDS: MINERAL OIL/PETROLAT OPHT OINT 3.5 GM TUBE EACHEYE SCH ×2 (08:07→21:40)
[2022-10-01] MEDS: DOCUSATE SODIUM 100 MG/10 ML LIQUID UDC GT SCH ×2 (08:08→21:45)
[2022-10-01] MEDS: levETIRAcetam 500 MG/5 ML LIQUID UDC GT SCH ×2 (08:08→21:47)
[2022-10-01] MEDS: DESMOPRESSIN 0.1 MG TABLET GT SCH (08:08)
[2022-10-01] MEDS: REMEDY ESSENTIAL ZINC PASTE 113 GM TP SCH ×2 (08:09→21:53)
[2022-10-01] MEDS: LACOSAMIDE 100 MG/10 ML UDC GT SCH ×2 (08:09→21:00)
[2022-10-01] MEDS: MIDODRINE HCL 5 MG TABLET GT SCH ×2 (08:09→21:50)
[2022-10-01] MEDS: CHLORHEXIDINE GLUCONATE 15 ML MOUTHWASH MM SCH ×2 (08:09→17:12)
[2022-10-01] MEDS: VITAMINS A AND D OINT TP SCH (08:09)
[2022-10-01] MEDS: HYDROGEN PEROXIDE 3% 118 ML BOTTLE TOP SCH ×2 (09:00→21:53)
[2022-10-01] MEDS: JEVITY 1.2 1000 ML LIQUID GT PRN (10:52)
--- NOTE | 2022-10-01 16:28 | NUR ---
DR. HARMON (COMMUNICATION STUDIES PROFESSOR DRYWALL SANDER FOR DR. MARIA ) WAS CALLED AND GAVE OK ORDER FOR PT'S MOTHER TO TAKE PT. FOR A STEM CELL TX AT [facility] AND HE WAS AWARE THAT PT'S MOTHER ALREADY ARRANGED APPOINTMENT AND TRANSPORTATION LIKE PREVIOUS TIME AND ALSO GAVE ORDER TO SEND PT. WITH A PERIPHERAL IV SALINE LOCK REQUESTED BY THE CLINIC (DUE TO TIME FRAME OF TRANSPORTATION WAITING TIME IS LIMITED)PT'S MOTHER VISITING AT THIS TIME AND SATISFIED WITH ORDERS.
[2022-10-01] MEDS: FERROUS SULFATE 330 MG/7.5 ML UDC- FOR SA ONLY GT SCH (21:46)
[2022-10-01] MEDS: MELATONIN 3 MG TABLET GT SCH (21:48)
[2022-10-01] MEDS: SENNOSIDES 1 TABLET GT SCH (21:50)
[2022-10-01] MEDS: MULTIVIT, IRON, MIN NO. 8, FA TABLET GT SCH (21:50)
[2022-10-02] MEDS: POLYVINYL ALCOHOL OPHT DROPS 15 ML BOTTLE EACHEYE SCH ×7 (00:53→23:36)
[2022-10-02] MEDS: METOCLOPRAMIDE HCL 10 MG TABLET GT SCH ×5 (00:53→23:36)
[2022-10-02] MEDS: BACLOFEN 10 MG TABLET GT SCH ×3 (05:51→21:56)
[2022-10-02] MEDS: CHOLECALCIFEROL 1,000 UNIT TABLET GT SCH (05:52)
[2022-10-02] MEDS: OMEPRAZOLE 40 MG CAPSULE.DR GT SCH (05:53)
[2022-10-02] MEDS: HYDROGEN PEROXIDE 3% 118 ML BOTTLE TOP SCH ×2 (07:45→20:51)
[2022-10-02] MEDS: LACTULOSE 20 G/30 ML LIQUID UDC GT SCH ×2 (08:00→20:07)
[2022-10-02] MEDS: MINERAL OIL/PETROLAT OPHT OINT 3.5 GM TUBE EACHEYE SCH ×2 (08:00→20:07)
[2022-10-02] MEDS: DOCUSATE SODIUM 100 MG/10 ML LIQUID UDC GT SCH ×2 (08:00→20:07)
[2022-10-02] MEDS: MIDODRINE HCL 5 MG TABLET GT SCH ×2 (08:01→20:07)
[2022-10-02] MEDS: DESMOPRESSIN 0.1 MG TABLET GT SCH (08:01)
[2022-10-02] MEDS: levETIRAcetam 500 MG/5 ML LIQUID UDC GT SCH ×2 (08:01→20:07)
[2022-10-02] MEDS: CHLORHEXIDINE GLUCONATE 15 ML MOUTHWASH MM SCH ×2 (08:02→17:28)
[2022-10-02] MEDS: REMEDY ESSENTIAL ZINC PASTE 113 GM TP SCH ×2 (08:02→20:08)
[2022-10-02] MEDS: LACOSAMIDE 100 MG/10 ML UDC GT SCH ×2 (08:02→20:08)
[2022-10-02] MEDS: VITAMINS A AND D OINT TP SCH (08:02)
[2022-10-02] MEDS: JEVITY 1.2 1000 ML LIQUID GT PRN (18:16)
[2022-10-02] MEDS: FERROUS SULFATE 330 MG/7.5 ML UDC- FOR SA ONLY GT SCH (20:07)
[2022-10-02] MEDS: MELATONIN 3 MG TABLET GT SCH (20:07)
[2022-10-02] MEDS: SENNOSIDES 1 TABLET GT SCH (20:08)
[2022-10-02] MEDS: MULTIVIT, IRON, MIN NO. 8, FA TABLET GT SCH (20:08)
[2022-10-03] MEDS: POLYVINYL ALCOHOL OPHT DROPS 15 ML BOTTLE EACHEYE SCH ×6 (04:00→23:00)
[2022-10-03] MEDS: CHOLECALCIFEROL 1,000 UNIT TABLET GT SCH (05:30)
[2022-10-03] MEDS: BACLOFEN 10 MG TABLET GT SCH ×4 (05:30→22:43)
[2022-10-03] MEDS: OMEPRAZOLE 40 MG CAPSULE.DR GT SCH (05:30)
[2022-10-03] MEDS: METOCLOPRAMIDE HCL 10 MG TABLET GT SCH ×4 (05:30→23:00)
[2022-10-03] MEDS: levETIRAcetam 500 MG/5 ML LIQUID UDC GT SCH ×2 (08:07→21:00)
[2022-10-03] MEDS: MINERAL OIL/PETROLAT OPHT OINT 3.5 GM TUBE EACHEYE SCH ×2 (08:07→21:00)
[2022-10-03] MEDS: DESMOPRESSIN 0.1 MG TABLET GT SCH (08:07)
[2022-10-03] MEDS: REMEDY ESSENTIAL ZINC PASTE 113 GM TP SCH ×2 (08:09→21:00)
[2022-10-03] MEDS: CHLORHEXIDINE GLUCONATE 15 ML MOUTHWASH MM SCH ×2 (08:09→16:49)
[2022-10-03] MEDS: LACOSAMIDE 100 MG/10 ML UDC GT SCH ×2 (08:09→21:00)
[2022-10-03] MEDS: VITAMINS A AND D OINT TP SCH (08:09)
[2022-10-03] MEDS: MIDODRINE HCL 5 MG TABLET GT SCH ×2 (08:09→21:00)
[2022-10-03] MEDS: HYDROGEN PEROXIDE 3% 118 ML BOTTLE TOP SCH ×2 (08:13→21:00)
[2022-10-03] MEDS: BISACODYL 10 MG SUPP.RECT RC SCH (08:13)
[2022-10-03] MEDS: DOCUSATE SODIUM 100 MG/10 ML LIQUID UDC GT SCH ×2 (09:00→21:00)
[2022-10-03] MEDS: LACTULOSE 20 G/30 ML LIQUID UDC GT SCH ×2 (09:00→21:00)
--- NOTE | 2022-10-03 11:58 | NUR ---
PATIENT PICKED UP BY [facility] FOR APPOINTMENT WITH DR. KENNY ESTRADA AT [facility] AWAKE VITAL SIGNS STABLE WITH NO ACUTE DISTRESS NOTED. RESPONSIBLE CONSTITUTION PARTY FRANCISCO HALL NOTIFIED.
--- NOTE | 2022-10-03 16:46 | NUR ---
RECEIVED PATIENT FROM APPOINTMENT WITH DR. KNENY ESTRADA, S/P PRP, STEM CELL AND EXOSOMES TX WITH NO ACUTE DISTRESS NOTED AT THIS TIME. VITAL SIGN TEMP 97.1, BP 103/66, PULSE 54, RESP. 18, SPO2 97%. KEPT CLEAN AND COMFORTABLE, WILL CONTINUE TO MONITOR.
[2022-10-03] MEDS: MELATONIN 3 MG TABLET GT SCH (21:00)
[2022-10-03] MEDS: MULTIVIT, IRON, MIN NO. 8, FA TABLET GT SCH (21:00)
[2022-10-03] MEDS: FERROUS SULFATE 330 MG/7.5 ML UDC- FOR SA ONLY GT SCH (21:00)
[2022-10-03] MEDS: SENNOSIDES 1 TABLET GT SCH (21:00)
[2022-10-04] MEDS: POLYVINYL ALCOHOL OPHT DROPS 15 ML BOTTLE EACHEYE SCH ×5 (04:43→20:00)
[2022-10-04] MEDS: CHOLECALCIFEROL 1,000 UNIT TABLET GT SCH (06:00)
[2022-10-04] MEDS: METOCLOPRAMIDE HCL 10 MG TABLET GT SCH ×3 (06:00→18:00)
[2022-10-04] MEDS: BACLOFEN 10 MG TABLET GT SCH ×3 (06:00→21:04)
[2022-10-04] MEDS: OMEPRAZOLE 40 MG CAPSULE.DR GT SCH (06:00)
[2022-10-04] MEDS: HYDROGEN PEROXIDE 3% 118 ML BOTTLE TOP SCH ×2 (08:47→19:21)
[2022-10-04] MEDS: VITAMINS A AND D OINT TP SCH (09:00)
[2022-10-04] MEDS: LACOSAMIDE 100 MG/10 ML UDC GT SCH ×2 (09:00→21:04)
[2022-10-04] MEDS: MIDODRINE HCL 5 MG TABLET GT SCH ×2 (09:00→21:04)
[2022-10-04] MEDS: CHLORHEXIDINE GLUCONATE 15 ML MOUTHWASH MM SCH ×2 (09:00→16:54)
[2022-10-04] MEDS: LACTULOSE 20 G/30 ML LIQUID UDC GT SCH ×2 (09:00→21:03)
[2022-10-04] MEDS: levETIRAcetam 500 MG/5 ML LIQUID UDC GT SCH ×2 (09:00→21:03)
[2022-10-04] MEDS: DOCUSATE SODIUM 100 MG/10 ML LIQUID UDC GT SCH ×2 (09:00→21:03)
[2022-10-04] MEDS: REMEDY ESSENTIAL ZINC PASTE 113 GM TP SCH ×2 (09:00→21:04)
[2022-10-04] MEDS: DESMOPRESSIN 0.1 MG TABLET GT SCH (09:00)
[2022-10-04] MEDS: MINERAL OIL/PETROLAT OPHT OINT 3.5 GM TUBE EACHEYE SCH ×2 (10:32→21:03)
[2022-10-04] MEDS: JEVITY 1.2 1000 ML LIQUID GT PRN (19:58)
[2022-10-04] MEDS: MELATONIN 3 MG TABLET GT SCH (21:03)
[2022-10-04] MEDS: FERROUS SULFATE 330 MG/7.5 ML UDC- FOR SA ONLY GT SCH (21:03)
[2022-10-04] MEDS: MULTIVIT, IRON, MIN NO. 8, FA TABLET GT SCH (21:04)
[2022-10-04] MEDS: SENNOSIDES 1 TABLET GT SCH (21:04)
[2022-10-05] MEDS: POLYVINYL ALCOHOL OPHT DROPS 15 ML BOTTLE EACHEYE SCH ×6 (00:44→20:27)
[2022-10-05] MEDS: METOCLOPRAMIDE HCL 10 MG TABLET GT SCH ×4 (00:44→17:40)
[2022-10-05] MEDS: CHOLECALCIFEROL 1,000 UNIT TABLET GT SCH (05:54)
[2022-10-05] MEDS: OMEPRAZOLE 40 MG CAPSULE.DR GT SCH (05:54)
[2022-10-05] MEDS: BACLOFEN 10 MG TABLET GT SCH ×3 (05:54→22:21)
[2022-10-05] MEDS: BISACODYL 10 MG SUPP.RECT RC SCH (08:13)
[2022-10-05] MEDS: MIDODRINE HCL 5 MG TABLET GT SCH ×2 (09:00→21:00)
[2022-10-05] MEDS: LACOSAMIDE 100 MG/10 ML UDC GT SCH ×2 (09:00→20:28)
[2022-10-05] MEDS: DESMOPRESSIN 0.1 MG TABLET GT SCH (09:00)
[2022-10-05] MEDS: LACTULOSE 20 G/30 ML LIQUID UDC GT SCH ×2 (09:00→20:27)
[2022-10-05] MEDS: MINERAL OIL/PETROLAT OPHT OINT 3.5 GM TUBE EACHEYE SCH ×2 (09:36→20:27)
[2022-10-05] MEDS: DOCUSATE SODIUM 100 MG/10 ML LIQUID UDC GT SCH ×2 (09:36→20:27)
[2022-10-05] MEDS: VITAMINS A AND D OINT TP SCH (09:40)
[2022-10-05] MEDS: REMEDY ESSENTIAL ZINC PASTE 113 GM TP SCH ×2 (09:40→20:28)
[2022-10-05] MEDS: HYDROGEN PEROXIDE 3% 118 ML BOTTLE TOP SCH ×2 (09:40→22:03)
[2022-10-05] MEDS: levETIRAcetam 500 MG/5 ML LIQUID UDC GT SCH ×2 (09:40→20:27)
[2022-10-05] MEDS: CHLORHEXIDINE GLUCONATE 15 ML MOUTHWASH MM SCH ×2 (09:43→16:43)
[2022-10-05] MEDS: FERROUS SULFATE 330 MG/7.5 ML UDC- FOR SA ONLY GT SCH (20:27)
[2022-10-05] MEDS: MULTIVIT, IRON, MIN NO. 8, FA TABLET GT SCH (20:28)
[2022-10-05] MEDS: MELATONIN 3 MG TABLET GT SCH (20:28)
[2022-10-05] MEDS: SENNOSIDES 1 TABLET GT SCH (20:28)
[2022-10-05] MEDS: JEVITY 1.2 1000 ML LIQUID GT PRN (20:29)
[2022-10-06] MEDS: POLYVINYL ALCOHOL OPHT DROPS 15 ML BOTTLE EACHEYE SCH ×6 (04:00→20:25)
[2022-10-06] MEDS: OMEPRAZOLE 40 MG CAPSULE.DR GT SCH (05:26)
[2022-10-06] MEDS: METOCLOPRAMIDE HCL 10 MG TABLET GT SCH ×4 (05:26→17:41)
[2022-10-06] MEDS: CHOLECALCIFEROL 1,000 UNIT TABLET GT SCH (05:26)
[2022-10-06] MEDS: BACLOFEN 10 MG TABLET GT SCH ×3 (05:26→22:06)
[2022-10-06] MEDS: HYDROGEN PEROXIDE 3% 118 ML BOTTLE TOP SCH ×2 (08:47→18:25)
[2022-10-06] MEDS: DOCUSATE SODIUM 100 MG/10 ML LIQUID UDC GT SCH ×2 (09:07→20:25)
[2022-10-06] MEDS: LACTULOSE 20 G/30 ML LIQUID UDC GT SCH ×2 (09:07→20:25)
[2022-10-06] MEDS: DESMOPRESSIN 0.1 MG TABLET GT SCH (09:08)
[2022-10-06] MEDS: levETIRAcetam 500 MG/5 ML LIQUID UDC GT SCH ×2 (09:08→20:25)
[2022-10-06] MEDS: REMEDY ESSENTIAL ZINC PASTE 113 GM TP SCH ×2 (09:09→20:25)
[2022-10-06] MEDS: MIDODRINE HCL 5 MG TABLET GT SCH ×2 (09:09→20:30)
[2022-10-06] MEDS: LACOSAMIDE 100 MG/10 ML UDC GT SCH ×2 (09:09→20:25)
[2022-10-06] MEDS: CHLORHEXIDINE GLUCONATE 15 ML MOUTHWASH MM SCH ×2 (09:09→16:38)
[2022-10-06] MEDS: VITAMINS A AND D OINT TP SCH (09:10)
[2022-10-06] MEDS: MINERAL OIL/PETROLAT OPHT OINT 3.5 GM TUBE EACHEYE SCH ×2 (09:15→20:25)
--- NOTE | 2022-10-06 11:00 | NUR ---
Seen and examined by Doctor Escobar with no new orders noted.
--- NOTE | 2022-10-06 18:24 | NUR ---
New Tx orders For L and R big toe ingrown toenail,with triple Atb ointment carried out.
[2022-10-06] MEDS: MULTIVIT, IRON, MIN NO. 8, FA TABLET GT SCH (20:25)
[2022-10-06] MEDS: FERROUS SULFATE 330 MG/7.5 ML UDC- FOR SA ONLY GT SCH (20:25)
[2022-10-06] MEDS: SENNOSIDES 1 TABLET GT SCH (20:25)
[2022-10-06] MEDS: MELATONIN 3 MG TABLET GT SCH (20:25)
[2022-10-06] MEDS: NEOMY/BACITRA/POLYMYXIN B OINT UD PACKET TP SCH (20:25)
[2022-10-07] MEDS: JEVITY 1.2 1000 ML LIQUID GT PRN (01:06)
[2022-10-07] MEDS: POLYVINYL ALCOHOL OPHT DROPS 15 ML BOTTLE EACHEYE SCH ×7 (04:00→23:26)
[2022-10-07] MEDS: METOCLOPRAMIDE HCL 10 MG TABLET GT SCH ×5 (05:32→23:26)
[2022-10-07] MEDS: OMEPRAZOLE 40 MG CAPSULE.DR GT SCH (05:32)
[2022-10-07] MEDS: BACLOFEN 10 MG TABLET GT SCH ×3 (05:32→22:35)
[2022-10-07] MEDS: CHOLECALCIFEROL 1,000 UNIT TABLET GT SCH (05:32)
[2022-10-07] MEDS: LACTULOSE 20 G/30 ML LIQUID UDC GT SCH ×2 (08:29→20:34)
[2022-10-07] MEDS: MIDODRINE HCL 5 MG TABLET GT SCH ×2 (08:29→20:34)
[2022-10-07] MEDS: levETIRAcetam 500 MG/5 ML LIQUID UDC GT SCH ×2 (08:29→20:34)
[2022-10-07] MEDS: DOCUSATE SODIUM 100 MG/10 ML LIQUID UDC GT SCH ×2 (08:29→20:34)
[2022-10-07] MEDS: DESMOPRESSIN 0.1 MG TABLET GT SCH (08:29)
[2022-10-07] MEDS: REMEDY ESSENTIAL ZINC PASTE 113 GM TP SCH ×2 (08:29→20:35)
[2022-10-07] MEDS: CHLORHEXIDINE GLUCONATE 15 ML MOUTHWASH MM SCH ×2 (08:29→16:45)
[2022-10-07] MEDS: LACOSAMIDE 100 MG/10 ML UDC GT SCH ×2 (08:30→20:35)
[2022-10-07] MEDS: VITAMINS A AND D OINT TP SCH (08:30)
[2022-10-07] MEDS: MINERAL OIL/PETROLAT OPHT OINT 3.5 GM TUBE EACHEYE SCH ×2 (08:32→20:34)
[2022-10-07] MEDS: HYDROGEN PEROXIDE 3% 118 ML BOTTLE TOP SCH ×2 (09:00→21:00)
[2022-10-07] MEDS: NEOMY/BACITRA/POLYMYXIN B OINT UD PACKET TP SCH ×2 (09:00→20:35)
[2022-10-07] MEDS: MELATONIN 3 MG TABLET GT SCH (20:34)
[2022-10-07] MEDS: FERROUS SULFATE 330 MG/7.5 ML UDC- FOR SA ONLY GT SCH (20:34)
[2022-10-07] MEDS: SENNOSIDES 1 TABLET GT SCH (20:35)
[2022-10-07] MEDS: MULTIVIT, IRON, MIN NO. 8, FA TABLET GT SCH (20:35)
[2022-10-08] MEDS: POLYVINYL ALCOHOL OPHT DROPS 15 ML BOTTLE EACHEYE SCH ×6 (04:42→23:43)
[2022-10-08] MEDS: METOCLOPRAMIDE HCL 10 MG TABLET GT SCH ×4 (05:07→23:43)
[2022-10-08] MEDS: CHOLECALCIFEROL 1,000 UNIT TABLET GT SCH (05:07)
[2022-10-08] MEDS: BACLOFEN 10 MG TABLET GT SCH ×3 (05:07→21:57)
[2022-10-08] MEDS: OMEPRAZOLE 40 MG CAPSULE.DR GT SCH (05:07)
--- NOTE | 2022-10-08 06:24 | NUR ---
Covid test done as ordered ,as required by [facility],every saturday.
[2022-10-08] MEDS: BISACODYL 10 MG SUPP.RECT RC SCH (08:13)
[2022-10-08] MEDS: VITAMINS A AND D OINT TP SCH (09:00)
[2022-10-08] MEDS: LACOSAMIDE 100 MG/10 ML UDC GT SCH ×2 (09:00→20:30)
[2022-10-08] MEDS: CHLORHEXIDINE GLUCONATE 15 ML MOUTHWASH MM SCH ×2 (09:00→17:41)
[2022-10-08] MEDS: REMEDY ESSENTIAL ZINC PASTE 113 GM TP SCH ×2 (09:00→20:30)
[2022-10-08] MEDS: NEOMY/BACITRA/POLYMYXIN B OINT UD PACKET TP SCH ×2 (09:00→20:31)
[2022-10-08] MEDS: HYDROGEN PEROXIDE 3% 118 ML BOTTLE TOP SCH ×2 (09:30→21:39)
[2022-10-08] MEDS: MINERAL OIL/PETROLAT OPHT OINT 3.5 GM TUBE EACHEYE SCH ×2 (09:52→20:29)
[2022-10-08] MEDS: LACTULOSE 20 G/30 ML LIQUID UDC GT SCH ×2 (09:54→20:29)
[2022-10-08] MEDS: DOCUSATE SODIUM 100 MG/10 ML LIQUID UDC GT SCH ×2 (09:55→20:29)
[2022-10-08] MEDS: levETIRAcetam 500 MG/5 ML LIQUID UDC GT SCH ×2 (09:56→20:29)
[2022-10-08] MEDS: DESMOPRESSIN 0.1 MG TABLET GT SCH (09:58)
[2022-10-08] MEDS: MIDODRINE HCL 5 MG TABLET GT SCH ×2 (09:58→20:30)
--- NOTE | 2022-10-08 13:30 | NUR ---
PT. WAS SEEN AND EXAMINED BY GLADIS Mata AND WITH NEW ORDER FOR PODIATRY EVALUATION OF BILATERAL TOENAILA ,DR. MYRICK WAS CALLED AND STATED THAT WILL SEE PT. SOON.
[2022-10-08] MEDS: MELATONIN 3 MG TABLET GT SCH (20:29)
[2022-10-08] MEDS: FERROUS SULFATE 330 MG/7.5 ML UDC- FOR SA ONLY GT SCH (20:29)
[2022-10-08] MEDS: SENNOSIDES 1 TABLET GT SCH (20:30)
[2022-10-08] MEDS: MULTIVIT, IRON, MIN NO. 8, FA TABLET GT SCH (20:30)
[2022-10-09] MEDS: POLYVINYL ALCOHOL OPHT DROPS 15 ML BOTTLE EACHEYE SCH ×5 (04:01→20:57)
[2022-10-09] MEDS: CHOLECALCIFEROL 1,000 UNIT TABLET GT SCH (05:49)
[2022-10-09] MEDS: BACLOFEN 10 MG TABLET GT SCH ×3 (05:49→22:13)
[2022-10-09] MEDS: OMEPRAZOLE 40 MG CAPSULE.DR GT SCH (05:49)
[2022-10-09] MEDS: METOCLOPRAMIDE HCL 10 MG TABLET GT SCH ×3 (05:49→17:53)
[2022-10-09] MEDS: LACTULOSE 20 G/30 ML LIQUID UDC GT SCH ×2 (08:01→20:57)
[2022-10-09] MEDS: MINERAL OIL/PETROLAT OPHT OINT 3.5 GM TUBE EACHEYE SCH ×2 (08:01→20:57)
[2022-10-09] MEDS: DESMOPRESSIN 0.1 MG TABLET GT SCH (08:02)
[2022-10-09] MEDS: levETIRAcetam 500 MG/5 ML LIQUID UDC GT SCH ×2 (08:02→20:57)
[2022-10-09] MEDS: DOCUSATE SODIUM 100 MG/10 ML LIQUID UDC GT SCH ×2 (08:02→20:57)
[2022-10-09] MEDS: MIDODRINE HCL 5 MG TABLET GT SCH ×2 (08:03→20:58)
[2022-10-09] MEDS: LACOSAMIDE 100 MG/10 ML UDC GT SCH ×2 (08:03→20:58)
[2022-10-09] MEDS: CHLORHEXIDINE GLUCONATE 15 ML MOUTHWASH MM SCH ×2 (08:03→17:53)
[2022-10-09] MEDS: NEOMY/BACITRA/POLYMYXIN B OINT UD PACKET TP SCH ×2 (08:03→20:58)
[2022-10-09] MEDS: REMEDY ESSENTIAL ZINC PASTE 113 GM TP SCH ×2 (08:03→20:58)
[2022-10-09] MEDS: VITAMINS A AND D OINT TP SCH (08:03)
[2022-10-09] MEDS: HYDROGEN PEROXIDE 3% 118 ML BOTTLE TOP SCH ×2 (09:21→21:01)
[2022-10-09] MEDS: JEVITY 1.2 1000 ML LIQUID GT PRN (12:03)
[2022-10-09] MEDS: MELATONIN 3 MG TABLET GT SCH (20:57)
[2022-10-09] MEDS: FERROUS SULFATE 330 MG/7.5 ML UDC- FOR SA ONLY GT SCH (20:57)
[2022-10-09] MEDS: MULTIVIT, IRON, MIN NO. 8, FA TABLET GT SCH (20:58)
[2022-10-09] MEDS: SENNOSIDES 1 TABLET GT SCH (20:58)
[2022-10-10] MEDS: METOCLOPRAMIDE HCL 10 MG TABLET GT SCH ×4 (00:44→17:57)
[2022-10-10] MEDS: POLYVINYL ALCOHOL OPHT DROPS 15 ML BOTTLE EACHEYE SCH ×6 (00:44→20:00)
[2022-10-10] MEDS: CHOLECALCIFEROL 1,000 UNIT TABLET GT SCH (05:32)
[2022-10-10] MEDS: BACLOFEN 10 MG TABLET GT SCH ×3 (05:32→21:09)
[2022-10-10] MEDS: OMEPRAZOLE 40 MG CAPSULE.DR GT SCH (05:32)
[2022-10-10] MEDS: BISACODYL 10 MG SUPP.RECT RC SCH (08:34)
[2022-10-10] MEDS: LACTULOSE 20 G/30 ML LIQUID UDC GT SCH ×2 (08:35→21:07)
[2022-10-10] MEDS: MINERAL OIL/PETROLAT OPHT OINT 3.5 GM TUBE EACHEYE SCH ×2 (08:35→21:07)
[2022-10-10] MEDS: DOCUSATE SODIUM 100 MG/10 ML LIQUID UDC GT SCH ×2 (08:35→21:07)
[2022-10-10] MEDS: levETIRAcetam 500 MG/5 ML LIQUID UDC GT SCH ×2 (08:36→21:07)
[2022-10-10] MEDS: DESMOPRESSIN 0.1 MG TABLET GT SCH (08:36)
[2022-10-10] MEDS: NEOMY/BACITRA/POLYMYXIN B OINT UD PACKET TP SCH ×2 (08:38→21:09)
[2022-10-10] MEDS: LACOSAMIDE 100 MG/10 ML UDC GT SCH ×2 (08:38→21:09)
[2022-10-10] MEDS: REMEDY ESSENTIAL ZINC PASTE 113 GM TP SCH ×2 (08:38→21:09)
[2022-10-10] MEDS: CHLORHEXIDINE GLUCONATE 15 ML MOUTHWASH MM SCH ×2 (08:38→17:56)
[2022-10-10] MEDS: VITAMINS A AND D OINT TP SCH (08:38)
[2022-10-10] MEDS: MIDODRINE HCL 5 MG TABLET GT SCH ×2 (08:38→21:08)
[2022-10-10] MEDS: HYDROGEN PEROXIDE 3% 118 ML BOTTLE TOP SCH ×2 (09:18→19:15)
[2022-10-10] MEDS: JEVITY 1.2 1000 ML LIQUID GT PRN (14:33)
[2022-10-10] MEDS: FERROUS SULFATE 330 MG/7.5 ML UDC- FOR SA ONLY GT SCH (21:07)
[2022-10-10] MEDS: MELATONIN 3 MG TABLET GT SCH (21:08)
[2022-10-10] MEDS: SENNOSIDES 1 TABLET GT SCH (21:08)
[2022-10-10] MEDS: MULTIVIT, IRON, MIN NO. 8, FA TABLET GT SCH (21:09)
[2022-10-11] MEDS: POLYVINYL ALCOHOL OPHT DROPS 15 ML BOTTLE EACHEYE SCH ×6 (04:37→20:00)
[2022-10-11] MEDS: CHOLECALCIFEROL 1,000 UNIT TABLET GT SCH (05:20)
[2022-10-11] MEDS: BACLOFEN 10 MG TABLET GT SCH ×3 (05:20→22:55)
[2022-10-11] MEDS: OMEPRAZOLE 40 MG CAPSULE.DR GT SCH (05:20)
[2022-10-11] MEDS: METOCLOPRAMIDE HCL 10 MG TABLET GT SCH ×4 (05:20→17:46)
[2022-10-11] MEDS: LACTULOSE 20 G/30 ML LIQUID UDC GT SCH ×2 (08:37→21:00)
[2022-10-11] MEDS: DESMOPRESSIN 0.1 MG TABLET GT SCH (08:37)
[2022-10-11] MEDS: DOCUSATE SODIUM 100 MG/10 ML LIQUID UDC GT SCH ×2 (08:37→21:00)
[2022-10-11] MEDS: MINERAL OIL/PETROLAT OPHT OINT 3.5 GM TUBE EACHEYE SCH ×2 (08:37→21:00)
[2022-10-11] MEDS: levETIRAcetam 500 MG/5 ML LIQUID UDC GT SCH ×2 (08:37→21:00)
[2022-10-11] MEDS: LACOSAMIDE 100 MG/10 ML UDC GT SCH ×2 (08:38→21:00)
[2022-10-11] MEDS: CHLORHEXIDINE GLUCONATE 15 ML MOUTHWASH MM SCH ×2 (08:38→16:24)
[2022-10-11] MEDS: REMEDY ESSENTIAL ZINC PASTE 113 GM TP SCH ×2 (08:38→21:00)
[2022-10-11] MEDS: VITAMINS A AND D OINT TP SCH (08:38)
[2022-10-11] MEDS: MIDODRINE HCL 5 MG TABLET GT SCH ×2 (08:38→21:00)
[2022-10-11] MEDS: NEOMY/BACITRA/POLYMYXIN B OINT UD PACKET TP SCH ×2 (08:38→21:00)
[2022-10-11] MEDS: HYDROGEN PEROXIDE 3% 118 ML BOTTLE TOP SCH ×2 (08:59→19:16)
[2022-10-11] MEDS: MELATONIN 3 MG TABLET GT SCH (21:00)
[2022-10-11] MEDS: FERROUS SULFATE 330 MG/7.5 ML UDC- FOR SA ONLY GT SCH (21:00)
[2022-10-11] MEDS: SENNOSIDES 1 TABLET GT SCH (21:00)
[2022-10-11] MEDS: MULTIVIT, IRON, MIN NO. 8, FA TABLET GT SCH (21:00)
[2022-10-12] MEDS: METOCLOPRAMIDE HCL 10 MG TABLET GT SCH ×4 (00:51→17:13)
[2022-10-12] MEDS: POLYVINYL ALCOHOL OPHT DROPS 15 ML BOTTLE EACHEYE SCH ×6 (00:51→20:00)
[2022-10-12] MEDS: BACLOFEN 10 MG TABLET GT SCH ×3 (06:00→21:38)
[2022-10-12] MEDS: OMEPRAZOLE 40 MG CAPSULE.DR GT SCH (06:00)
[2022-10-12] MEDS: CHOLECALCIFEROL 1,000 UNIT TABLET GT SCH (06:00)
[2022-10-12] MEDS: HYDROGEN PEROXIDE 3% 118 ML BOTTLE TOP SCH ×2 (07:45→21:14)
[2022-10-12] MEDS: BISACODYL 10 MG SUPP.RECT RC SCH (08:37)
[2022-10-12] MEDS: MIDODRINE HCL 5 MG TABLET GT SCH ×2 (08:38→21:37)
[2022-10-12] MEDS: MINERAL OIL/PETROLAT OPHT OINT 3.5 GM TUBE EACHEYE SCH ×2 (08:38→21:34)
[2022-10-12] MEDS: LACTULOSE 20 G/30 ML LIQUID UDC GT SCH ×2 (08:38→21:34)
[2022-10-12] MEDS: DESMOPRESSIN 0.1 MG TABLET GT SCH (08:38)
[2022-10-12] MEDS: levETIRAcetam 500 MG/5 ML LIQUID UDC GT SCH ×2 (08:38→21:35)
[2022-10-12] MEDS: DOCUSATE SODIUM 100 MG/10 ML LIQUID UDC GT SCH ×2 (08:38→21:34)
[2022-10-12] MEDS: CHLORHEXIDINE GLUCONATE 15 ML MOUTHWASH MM SCH ×2 (08:39→16:59)
[2022-10-12] MEDS: VITAMINS A AND D OINT TP SCH (08:39)
[2022-10-12] MEDS: LACOSAMIDE 100 MG/10 ML UDC GT SCH ×2 (08:39→21:38)
[2022-10-12] MEDS: NEOMY/BACITRA/POLYMYXIN B OINT UD PACKET TP SCH ×2 (08:39→21:38)
[2022-10-12] MEDS: REMEDY ESSENTIAL ZINC PASTE 113 GM TP SCH ×2 (08:39→21:38)
[2022-10-12] MEDS: FERROUS SULFATE 330 MG/7.5 ML UDC- FOR SA ONLY GT SCH (21:35)
[2022-10-12] MEDS: MELATONIN 3 MG TABLET GT SCH (21:37)
[2022-10-12] MEDS: MULTIVIT, IRON, MIN NO. 8, FA TABLET GT SCH (21:38)
[2022-10-12] MEDS: SENNOSIDES 1 TABLET GT SCH (21:38)
[2022-10-13] MEDS: POLYVINYL ALCOHOL OPHT DROPS 15 ML BOTTLE EACHEYE SCH ×6 (04:00→20:32)
[2022-10-13] MEDS: OMEPRAZOLE 40 MG CAPSULE.DR GT SCH (05:01)
[2022-10-13] MEDS: BACLOFEN 10 MG TABLET GT SCH ×3 (05:01→22:00)
[2022-10-13] MEDS: METOCLOPRAMIDE HCL 10 MG TABLET GT SCH ×4 (05:02→17:05)
[2022-10-13] MEDS: CHOLECALCIFEROL 1,000 UNIT TABLET GT SCH (05:02)
[2022-10-13] MEDS: HYDROGEN PEROXIDE 3% 118 ML BOTTLE TOP SCH ×2 (08:56→21:24)
[2022-10-13] MEDS: LACTULOSE 20 G/30 ML LIQUID UDC GT SCH ×2 (08:57→20:34)
[2022-10-13] MEDS: MINERAL OIL/PETROLAT OPHT OINT 3.5 GM TUBE EACHEYE SCH ×2 (08:57→20:32)
[2022-10-13] MEDS: DOCUSATE SODIUM 100 MG/10 ML LIQUID UDC GT SCH ×2 (08:59→20:35)
[2022-10-13] MEDS: DESMOPRESSIN 0.1 MG TABLET GT SCH (09:00)
[2022-10-13] MEDS: MIDODRINE HCL 5 MG TABLET GT SCH ×2 (09:00→20:36)
[2022-10-13] MEDS: levETIRAcetam 500 MG/5 ML LIQUID UDC GT SCH ×2 (09:00→20:35)
[2022-10-13] MEDS: NEOMY/BACITRA/POLYMYXIN B OINT UD PACKET TP SCH ×2 (09:06→20:38)
[2022-10-13] MEDS: VITAMINS A AND D OINT TP SCH (09:06)
[2022-10-13] MEDS: REMEDY ESSENTIAL ZINC PASTE 113 GM TP SCH ×2 (09:06→20:38)
[2022-10-13] MEDS: LACOSAMIDE 100 MG/10 ML UDC GT SCH ×2 (09:06→20:37)
[2022-10-13] MEDS: CHLORHEXIDINE GLUCONATE 15 ML MOUTHWASH MM SCH ×2 (09:06→17:05)
[2022-10-13] MEDS: JEVITY 1.2 1000 ML LIQUID GT PRN (17:30)
[2022-10-13] MEDS: FERROUS SULFATE 330 MG/7.5 ML UDC- FOR SA ONLY GT SCH (20:35)
[2022-10-13] MEDS: MELATONIN 3 MG TABLET GT SCH (20:36)
[2022-10-13] MEDS: MULTIVIT, IRON, MIN NO. 8, FA TABLET GT SCH (20:37)
[2022-10-13] MEDS: SENNOSIDES 1 TABLET GT SCH (20:37)
[2022-10-14] MEDS: POLYVINYL ALCOHOL OPHT DROPS 15 ML BOTTLE EACHEYE SCH ×7 (00:52→23:16)
[2022-10-14] MEDS: METOCLOPRAMIDE HCL 10 MG TABLET GT SCH ×5 (00:52→23:16)
[2022-10-14] MEDS: BACLOFEN 10 MG TABLET GT SCH ×3 (05:18→21:07)
[2022-10-14] MEDS: CHOLECALCIFEROL 1,000 UNIT TABLET GT SCH (05:18)
[2022-10-14] MEDS: OMEPRAZOLE 40 MG CAPSULE.DR GT SCH (05:18)
[2022-10-14] MEDS: MINERAL OIL/PETROLAT OPHT OINT 3.5 GM TUBE EACHEYE SCH ×2 (08:01→21:04)
[2022-10-14] MEDS: LACTULOSE 20 G/30 ML LIQUID UDC GT SCH ×2 (08:01→21:04)
[2022-10-14] MEDS: DOCUSATE SODIUM 100 MG/10 ML LIQUID UDC GT SCH ×2 (08:02→21:05)
[2022-10-14] MEDS: MIDODRINE HCL 5 MG TABLET GT SCH ×2 (08:02→21:06)
[2022-10-14] MEDS: levETIRAcetam 500 MG/5 ML LIQUID UDC GT SCH ×2 (08:02→21:05)
[2022-10-14] MEDS: DESMOPRESSIN 0.1 MG TABLET GT SCH (08:02)
[2022-10-14] MEDS: LACOSAMIDE 100 MG/10 ML UDC GT SCH ×2 (08:44→21:07)
[2022-10-14] MEDS: NEOMY/BACITRA/POLYMYXIN B OINT UD PACKET TP SCH ×2 (08:44→21:07)
[2022-10-14] MEDS: REMEDY ESSENTIAL ZINC PASTE 113 GM TP SCH ×2 (08:44→21:07)
[2022-10-14] MEDS: CHLORHEXIDINE GLUCONATE 15 ML MOUTHWASH MM SCH ×2 (08:44→17:01)
[2022-10-14] MEDS: VITAMINS A AND D OINT TP SCH (08:44)
[2022-10-14] MEDS: HYDROGEN PEROXIDE 3% 118 ML BOTTLE TOP SCH ×2 (09:26→19:24)
--- NOTE | 2022-10-14 18:55 | NUR ---
PT. WAS SEEN AND EXAMINED BY DR. MYRICK(FRAUD ANALYST) AND SPOKE TO PT'S MOTHER BY PHONE AND GAVE CONSENT TO HIM FOR LOCAL PROCEDURE ON BOTH BIG TOES AND WITNESSED BY THE NURSE ,AND PROCEDURE WELL TOLERATED AND WILL CONT. TO MONITOR.
[2022-10-14] MEDS: FERROUS SULFATE 330 MG/7.5 ML UDC- FOR SA ONLY GT SCH (21:05)
[2022-10-14] MEDS: MELATONIN 3 MG TABLET GT SCH (21:05)
[2022-10-14] MEDS: MULTIVIT, IRON, MIN NO. 8, FA TABLET GT SCH (21:06)
[2022-10-14] MEDS: SENNOSIDES 1 TABLET GT SCH (21:06)
[2022-10-14] MEDS: NEOMY/BACITRAC/POLYMI OINT 28.35 GM TUBE TOP SCH (21:07)
[2022-10-14] MEDS: JEVITY 1.2 1000 ML LIQUID GT PRN (23:16)
[2022-10-15] MEDS: POLYVINYL ALCOHOL OPHT DROPS 15 ML BOTTLE EACHEYE SCH ×5 (04:03→20:37)
[2022-10-15] MEDS: METOCLOPRAMIDE HCL 10 MG TABLET GT SCH ×3 (05:09→17:57)
[2022-10-15] MEDS: CHOLECALCIFEROL 1,000 UNIT TABLET GT SCH (05:09)
[2022-10-15] MEDS: BACLOFEN 10 MG TABLET GT SCH ×3 (05:09→22:37)
[2022-10-15] MEDS: OMEPRAZOLE 40 MG CAPSULE.DR GT SCH (05:09)
--- NOTE | 2022-10-15 07:32 | NUR ---
Patient consulted for podiatry and evaluated and procedure performed, New order for B/L big toes, cleansed with NS, pat to dry, apply triple ATB , cover with gauze and secured with tape. To monitor for s/s of local infection and to notify MD for changes.
[2022-10-15] MEDS: LACTULOSE 20 G/30 ML LIQUID UDC GT SCH ×2 (08:48→20:37)
[2022-10-15] MEDS: BISACODYL 10 MG SUPP.RECT RC SCH (08:48)
[2022-10-15] MEDS: MINERAL OIL/PETROLAT OPHT OINT 3.5 GM TUBE EACHEYE SCH ×2 (08:48→20:37)
[2022-10-15] MEDS: DOCUSATE SODIUM 100 MG/10 ML LIQUID UDC GT SCH ×2 (08:49→20:38)
[2022-10-15] MEDS: levETIRAcetam 500 MG/5 ML LIQUID UDC GT SCH ×2 (08:50→20:39)
[2022-10-15] MEDS: DESMOPRESSIN 0.1 MG TABLET GT SCH (08:50)
[2022-10-15] MEDS: CHLORHEXIDINE GLUCONATE 15 ML MOUTHWASH MM SCH ×2 (08:51→17:57)
[2022-10-15] MEDS: REMEDY ESSENTIAL ZINC PASTE 113 GM TP SCH ×2 (08:51→20:41)
[2022-10-15] MEDS: NEOMY/BACITRAC/POLYMI OINT 28.35 GM TUBE TOP SCH ×2 (08:51→20:41)
[2022-10-15] MEDS: LACOSAMIDE 100 MG/10 ML UDC GT SCH ×2 (08:51→20:41)
[2022-10-15] MEDS: VITAMINS A AND D OINT TP SCH (08:51)
[2022-10-15] MEDS: MIDODRINE HCL 5 MG TABLET GT SCH ×2 (08:51→20:40)
[2022-10-15] MEDS: HYDROGEN PEROXIDE 3% 118 ML BOTTLE TOP SCH ×2 (08:57→21:24)
--- NOTE | 2022-10-15 16:00 | NUR ---
PT'S MOTHER AWARE THAT WT TODAY IS 181 # AND SATISFIED WITH THERAPEUTIC WT. LOSS.
[2022-10-15] MEDS: FERROUS SULFATE 330 MG/7.5 ML UDC- FOR SA ONLY GT SCH (20:39)
[2022-10-15] MEDS: MELATONIN 3 MG TABLET GT SCH (20:39)
[2022-10-15] MEDS: SENNOSIDES 1 TABLET GT SCH (20:41)
[2022-10-15] MEDS: MULTIVIT, IRON, MIN NO. 8, FA TABLET GT SCH (20:41)
[2022-10-16] MEDS: JEVITY 1.2 1000 ML LIQUID GT PRN (01:05)
[2022-10-16] MEDS: POLYVINYL ALCOHOL OPHT DROPS 15 ML BOTTLE EACHEYE SCH ×6 (03:44→20:41)
[2022-10-16] MEDS: CHOLECALCIFEROL 1,000 UNIT TABLET GT SCH (05:39)
[2022-10-16] MEDS: OMEPRAZOLE 40 MG CAPSULE.DR GT SCH (05:39)
[2022-10-16] MEDS: BACLOFEN 10 MG TABLET GT SCH ×3 (05:39→22:27)
[2022-10-16] MEDS: METOCLOPRAMIDE HCL 10 MG TABLET GT SCH ×4 (05:39→18:06)
[2022-10-16] MEDS: MINERAL OIL/PETROLAT OPHT OINT 3.5 GM TUBE EACHEYE SCH ×2 (07:30→20:41)
[2022-10-16] MEDS: MIDODRINE HCL 5 MG TABLET GT SCH ×2 (09:00→20:42)
[2022-10-16] MEDS: LACOSAMIDE 100 MG/10 ML UDC GT SCH ×2 (09:00→20:42)
[2022-10-16] MEDS: levETIRAcetam 500 MG/5 ML LIQUID UDC GT SCH ×2 (09:00→20:41)
[2022-10-16] MEDS: DESMOPRESSIN 0.1 MG TABLET GT SCH (09:00)
[2022-10-16] MEDS: VITAMINS A AND D OINT TP SCH (09:00)
[2022-10-16] MEDS: NEOMY/BACITRAC/POLYMI OINT 28.35 GM TUBE TOP SCH ×2 (09:00→20:42)
[2022-10-16] MEDS: LACTULOSE 20 G/30 ML LIQUID UDC GT SCH ×2 (09:00→20:41)
[2022-10-16] MEDS: DOCUSATE SODIUM 100 MG/10 ML LIQUID UDC GT SCH ×2 (09:00→20:41)
[2022-10-16] MEDS: CHLORHEXIDINE GLUCONATE 15 ML MOUTHWASH MM SCH ×2 (09:00→17:00)
[2022-10-16] MEDS: REMEDY ESSENTIAL ZINC PASTE 113 GM TP SCH ×2 (09:00→20:42)
[2022-10-16] MEDS: HYDROGEN PEROXIDE 3% 118 ML BOTTLE TOP SCH ×2 (09:39→21:20)
--- NOTE | 2022-10-16 19:16 | NUR ---
Covid 19 test result negative,Pt's mother Mar aware.
[2022-10-16] MEDS: MELATONIN 3 MG TABLET GT SCH (20:41)
[2022-10-16] MEDS: FERROUS SULFATE 330 MG/7.5 ML UDC- FOR SA ONLY GT SCH (20:41)
[2022-10-16] MEDS: MULTIVIT, IRON, MIN NO. 8, FA TABLET GT SCH (20:42)
[2022-10-16] MEDS: SENNOSIDES 1 TABLET GT SCH (20:42)
[2022-10-17] MEDS: METOCLOPRAMIDE HCL 10 MG TABLET GT SCH ×5 (00:36→23:25)
[2022-10-17] MEDS: POLYVINYL ALCOHOL OPHT DROPS 15 ML BOTTLE EACHEYE SCH ×7 (00:36→23:22)
[2022-10-17] MEDS: CHOLECALCIFEROL 1,000 UNIT TABLET GT SCH (05:48)
[2022-10-17] MEDS: BACLOFEN 10 MG TABLET GT SCH ×3 (05:48→22:16)
[2022-10-17] MEDS: OMEPRAZOLE 40 MG CAPSULE.DR GT SCH (05:48)
[2022-10-17] MEDS: BISACODYL 10 MG SUPP.RECT RC SCH (08:41)
[2022-10-17] MEDS: LACTULOSE 20 G/30 ML LIQUID UDC GT SCH ×2 (08:41→20:15)
[2022-10-17] MEDS: DOCUSATE SODIUM 100 MG/10 ML LIQUID UDC GT SCH ×2 (08:41→20:15)
[2022-10-17] MEDS: MINERAL OIL/PETROLAT OPHT OINT 3.5 GM TUBE EACHEYE SCH ×2 (08:41→20:15)
[2022-10-17] MEDS: DESMOPRESSIN 0.1 MG TABLET GT SCH (08:42)
[2022-10-17] MEDS: levETIRAcetam 500 MG/5 ML LIQUID UDC GT SCH ×2 (08:42→20:17)
[2022-10-17] MEDS: NEOMY/BACITRAC/POLYMI OINT 28.35 GM TUBE TOP SCH ×2 (08:43→20:18)
[2022-10-17] MEDS: CHLORHEXIDINE GLUCONATE 15 ML MOUTHWASH MM SCH ×2 (08:43→17:00)
[2022-10-17] MEDS: LACOSAMIDE 100 MG/10 ML UDC GT SCH ×2 (08:43→20:26)
[2022-10-17] MEDS: MIDODRINE HCL 5 MG TABLET GT SCH ×2 (08:43→20:24)
[2022-10-17] MEDS: REMEDY ESSENTIAL ZINC PASTE 113 GM TP SCH ×2 (08:44→20:18)
[2022-10-17] MEDS: VITAMINS A AND D OINT TP SCH (08:44)
[2022-10-17] MEDS: HYDROGEN PEROXIDE 3% 118 ML BOTTLE TOP SCH ×2 (09:35→19:21)
[2022-10-17] MEDS: FERROUS SULFATE 330 MG/7.5 ML UDC- FOR SA ONLY GT SCH (20:15)
[2022-10-17] MEDS: MELATONIN 3 MG TABLET GT SCH (20:17)
[2022-10-17] MEDS: MULTIVIT, IRON, MIN NO. 8, FA TABLET GT SCH (20:18)
[2022-10-17] MEDS: SENNOSIDES 1 TABLET GT SCH (20:18)
[2022-10-18] MEDS: POLYVINYL ALCOHOL OPHT DROPS 15 ML BOTTLE EACHEYE SCH ×5 (04:00→20:51)
[2022-10-18] MEDS: BACLOFEN 10 MG TABLET GT SCH ×3 (05:14→22:18)
[2022-10-18] MEDS: METOCLOPRAMIDE HCL 10 MG TABLET GT SCH ×3 (05:14→17:24)
[2022-10-18] MEDS: CHOLECALCIFEROL 1,000 UNIT TABLET GT SCH (05:14)
[2022-10-18] MEDS: OMEPRAZOLE 40 MG CAPSULE.DR GT SCH (05:14)
[2022-10-18] MEDS: HYDROGEN PEROXIDE 3% 118 ML BOTTLE TOP SCH ×2 (09:00→21:07)
[2022-10-18] MEDS: DESMOPRESSIN 0.1 MG TABLET GT SCH (09:58)
[2022-10-18] MEDS: CHLORHEXIDINE GLUCONATE 15 ML MOUTHWASH MM SCH ×2 (09:58→17:24)
[2022-10-18] MEDS: DOCUSATE SODIUM 100 MG/10 ML LIQUID UDC GT SCH ×2 (09:58→20:51)
[2022-10-18] MEDS: LACOSAMIDE 100 MG/10 ML UDC GT SCH ×2 (09:58→20:52)
[2022-10-18] MEDS: MINERAL OIL/PETROLAT OPHT OINT 3.5 GM TUBE EACHEYE SCH ×2 (09:58→20:51)
[2022-10-18] MEDS: LACTULOSE 20 G/30 ML LIQUID UDC GT SCH ×2 (09:58→20:51)
[2022-10-18] MEDS: MIDODRINE HCL 5 MG TABLET GT SCH ×2 (09:58→20:52)
[2022-10-18] MEDS: levETIRAcetam 500 MG/5 ML LIQUID UDC GT SCH ×2 (09:58→20:51)
[2022-10-18] MEDS: NEOMY/BACITRAC/POLYMI OINT 28.35 GM TUBE TOP SCH ×2 (09:59→20:50)
[2022-10-18] MEDS: REMEDY ESSENTIAL ZINC PASTE 113 GM TP SCH ×2 (09:59→20:52)
[2022-10-18] MEDS: VITAMINS A AND D OINT TP SCH (09:59)
[2022-10-18] MEDS: MELATONIN 3 MG TABLET GT SCH (20:51)
[2022-10-18] MEDS: FERROUS SULFATE 330 MG/7.5 ML UDC- FOR SA ONLY GT SCH (20:51)
[2022-10-18] MEDS: MULTIVIT, IRON, MIN NO. 8, FA TABLET GT SCH (20:52)
[2022-10-18] MEDS: SENNOSIDES 1 TABLET GT SCH (20:52)
[2022-10-19] MEDS: METOCLOPRAMIDE HCL 10 MG TABLET GT SCH ×4 (00:41→17:03)
[2022-10-19] MEDS: POLYVINYL ALCOHOL OPHT DROPS 15 ML BOTTLE EACHEYE SCH ×6 (00:41→20:20)
[2022-10-19] MEDS: BACLOFEN 10 MG TABLET GT SCH ×3 (05:13→22:20)
[2022-10-19] MEDS: CHOLECALCIFEROL 1,000 UNIT TABLET GT SCH (05:13)
[2022-10-19] MEDS: OMEPRAZOLE 40 MG CAPSULE.DR GT SCH (05:13)
[2022-10-19] MEDS: HYDROGEN PEROXIDE 3% 118 ML BOTTLE TOP SCH ×2 (07:32→21:28)
[2022-10-19] MEDS: BISACODYL 10 MG SUPP.RECT RC SCH (08:26)
[2022-10-19] MEDS: LACTULOSE 20 G/30 ML LIQUID UDC GT SCH ×2 (08:26→20:20)
[2022-10-19] MEDS: MINERAL OIL/PETROLAT OPHT OINT 3.5 GM TUBE EACHEYE SCH ×2 (08:26→20:20)
[2022-10-19] MEDS: DOCUSATE SODIUM 100 MG/10 ML LIQUID UDC GT SCH ×2 (08:27→20:21)
[2022-10-19] MEDS: DESMOPRESSIN 0.1 MG TABLET GT SCH (08:27)
[2022-10-19] MEDS: levETIRAcetam 500 MG/5 ML LIQUID UDC GT SCH ×2 (08:27→20:22)
[2022-10-19] MEDS: MIDODRINE HCL 5 MG TABLET GT SCH ×2 (08:28→21:00)
[2022-10-19] MEDS: CHLORHEXIDINE GLUCONATE 15 ML MOUTHWASH MM SCH ×2 (08:28→17:03)
[2022-10-19] MEDS: LACOSAMIDE 100 MG/10 ML UDC GT SCH ×2 (08:28→20:24)
[2022-10-19] MEDS: REMEDY ESSENTIAL ZINC PASTE 113 GM TP SCH ×2 (08:29→20:25)
[2022-10-19] MEDS: VITAMINS A AND D OINT TP SCH (08:29)
[2022-10-19] MEDS: NEOMY/BACITRAC/POLYMI OINT 28.35 GM TUBE TOP SCH ×2 (08:29→20:25)
[2022-10-19] MEDS: JEVITY 1.2 1000 ML LIQUID GT PRN (12:55)
[2022-10-19] MEDS: FERROUS SULFATE 330 MG/7.5 ML UDC- FOR SA ONLY GT SCH (20:22)
[2022-10-19] MEDS: MULTIVIT, IRON, MIN NO. 8, FA TABLET GT SCH (20:24)
[2022-10-19] MEDS: MELATONIN 3 MG TABLET GT SCH (20:24)
[2022-10-19] MEDS: SENNOSIDES 1 TABLET GT SCH (20:24)
[2022-10-20] MEDS: METOCLOPRAMIDE HCL 10 MG TABLET GT SCH ×5 (00:22→23:20)
[2022-10-20] MEDS: POLYVINYL ALCOHOL OPHT DROPS 15 ML BOTTLE EACHEYE SCH ×7 (04:00→23:19)
[2022-10-20] MEDS: OMEPRAZOLE 40 MG CAPSULE.DR GT SCH (05:48)
[2022-10-20] MEDS: BACLOFEN 10 MG TABLET GT SCH ×3 (05:48→22:00)
[2022-10-20] MEDS: CHOLECALCIFEROL 1,000 UNIT TABLET GT SCH (05:49)
[2022-10-20] MEDS: HYDROGEN PEROXIDE 3% 118 ML BOTTLE TOP SCH ×2 (07:35→20:54)
[2022-10-20] MEDS: MINERAL OIL/PETROLAT OPHT OINT 3.5 GM TUBE EACHEYE SCH ×2 (08:30→20:28)
[2022-10-20] MEDS: LACTULOSE 20 G/30 ML LIQUID UDC GT SCH ×2 (08:31→20:29)
[2022-10-20] MEDS: DOCUSATE SODIUM 100 MG/10 ML LIQUID UDC GT SCH ×2 (08:31→20:30)
[2022-10-20] MEDS: DESMOPRESSIN 0.1 MG TABLET GT SCH (08:32)
[2022-10-20] MEDS: MIDODRINE HCL 5 MG TABLET GT SCH ×2 (08:33→20:39)
[2022-10-20] MEDS: CHLORHEXIDINE GLUCONATE 15 ML MOUTHWASH MM SCH ×2 (08:33→17:55)
[2022-10-20] MEDS: LACOSAMIDE 100 MG/10 ML UDC GT SCH ×2 (08:33→20:38)
[2022-10-20] MEDS: levETIRAcetam 500 MG/5 ML LIQUID UDC GT SCH ×2 (08:33→20:33)
[2022-10-20] MEDS: NEOMY/BACITRAC/POLYMI OINT 28.35 GM TUBE TOP SCH ×2 (08:34→20:35)
[2022-10-20] MEDS: VITAMINS A AND D OINT TP SCH (08:34)
[2022-10-20] MEDS: REMEDY ESSENTIAL ZINC PASTE 113 GM TP SCH ×2 (08:34→20:35)
[2022-10-20] MEDS: JEVITY 1.2 1000 ML LIQUID GT PRN (12:00)
[2022-10-20] MEDS: FERROUS SULFATE 330 MG/7.5 ML UDC- FOR SA ONLY GT SCH (20:30)
[2022-10-20] MEDS: SENNOSIDES 1 TABLET GT SCH (20:33)
[2022-10-20] MEDS: MELATONIN 3 MG TABLET GT SCH (20:34)
[2022-10-20] MEDS: MULTIVIT, IRON, MIN NO. 8, FA TABLET GT SCH (20:35)
[2022-10-21] MEDS: POLYVINYL ALCOHOL OPHT DROPS 15 ML BOTTLE EACHEYE SCH ×6 (04:26→23:35)
[2022-10-21] MEDS: CHOLECALCIFEROL 1,000 UNIT TABLET GT SCH (05:01)
[2022-10-21] MEDS: METOCLOPRAMIDE HCL 10 MG TABLET GT SCH ×4 (05:01→23:35)
[2022-10-21] MEDS: OMEPRAZOLE 40 MG CAPSULE.DR GT SCH (05:01)
[2022-10-21] MEDS: BACLOFEN 10 MG TABLET GT SCH ×3 (05:01→22:00)
[2022-10-21] MEDS: MINERAL OIL/PETROLAT OPHT OINT 3.5 GM TUBE EACHEYE SCH ×2 (08:51→20:03)
[2022-10-21] MEDS: DOCUSATE SODIUM 100 MG/10 ML LIQUID UDC GT SCH ×2 (08:52→20:03)
[2022-10-21] MEDS: LACTULOSE 20 G/30 ML LIQUID UDC GT SCH ×2 (08:52→20:03)
[2022-10-21] MEDS: DESMOPRESSIN 0.1 MG TABLET GT SCH (08:53)
[2022-10-21] MEDS: MIDODRINE HCL 5 MG TABLET GT SCH ×2 (08:54→20:06)
[2022-10-21] MEDS: levETIRAcetam 500 MG/5 ML LIQUID UDC GT SCH ×2 (08:54→20:04)
[2022-10-21] MEDS: LACOSAMIDE 100 MG/10 ML UDC GT SCH ×2 (08:59→20:04)
[2022-10-21] MEDS: REMEDY ESSENTIAL ZINC PASTE 113 GM TP SCH ×2 (09:00→20:04)
[2022-10-21] MEDS: VITAMINS A AND D OINT TP SCH (09:00)
[2022-10-21] MEDS: NEOMY/BACITRAC/POLYMI OINT 28.35 GM TUBE TOP SCH ×2 (09:00→20:04)
[2022-10-21] MEDS: CHLORHEXIDINE GLUCONATE 15 ML MOUTHWASH MM SCH ×2 (09:00→17:02)
[2022-10-21] MEDS: HYDROGEN PEROXIDE 3% 118 ML BOTTLE TOP SCH ×2 (09:00→21:12)
[2022-10-21] MEDS: JEVITY 1.2 1000 ML LIQUID GT PRN (12:36)
[2022-10-21] MEDS: FERROUS SULFATE 330 MG/7.5 ML UDC- FOR SA ONLY GT SCH (20:03)
[2022-10-21] MEDS: MULTIVIT, IRON, MIN NO. 8, FA TABLET GT SCH (20:04)
[2022-10-21] MEDS: SENNOSIDES 1 TABLET GT SCH (20:04)
[2022-10-21] MEDS: MELATONIN 3 MG TABLET GT SCH (20:04)
[2022-10-22] MEDS: POLYVINYL ALCOHOL OPHT DROPS 15 ML BOTTLE EACHEYE SCH ×5 (04:38→19:55)
[2022-10-22] MEDS: OMEPRAZOLE 40 MG CAPSULE.DR GT SCH (05:18)
[2022-10-22] MEDS: BACLOFEN 10 MG TABLET GT SCH ×3 (05:18→22:23)
[2022-10-22] MEDS: CHOLECALCIFEROL 1,000 UNIT TABLET GT SCH (05:18)
[2022-10-22] MEDS: METOCLOPRAMIDE HCL 10 MG TABLET GT SCH ×3 (05:18→17:11)
[2022-10-22] MEDS: BISACODYL 10 MG SUPP.RECT RC SCH (08:13)
[2022-10-22] MEDS: LACOSAMIDE 100 MG/10 ML UDC GT SCH ×2 (09:32→20:06)
[2022-10-22] MEDS: DESMOPRESSIN 0.1 MG TABLET GT SCH (09:33)
[2022-10-22] MEDS: MIDODRINE HCL 5 MG TABLET GT SCH ×2 (09:33→20:07)
[2022-10-22] MEDS: DOCUSATE SODIUM 100 MG/10 ML LIQUID UDC GT SCH ×2 (09:33→20:01)
[2022-10-22] MEDS: LACTULOSE 20 G/30 ML LIQUID UDC GT SCH ×2 (09:33→20:01)
[2022-10-22] MEDS: levETIRAcetam 500 MG/5 ML LIQUID UDC GT SCH ×2 (09:33→20:01)
[2022-10-22] MEDS: REMEDY ESSENTIAL ZINC PASTE 113 GM TP SCH ×2 (09:34→20:06)
[2022-10-22] MEDS: VITAMINS A AND D OINT TP SCH (09:34)
[2022-10-22] MEDS: MINERAL OIL/PETROLAT OPHT OINT 3.5 GM TUBE EACHEYE SCH ×2 (09:34→20:01)
[2022-10-22] MEDS: NEOMY/BACITRAC/POLYMI OINT 28.35 GM TUBE TOP SCH ×2 (09:34→20:06)
[2022-10-22] MEDS: CHLORHEXIDINE GLUCONATE 15 ML MOUTHWASH MM SCH ×2 (09:34→16:45)
[2022-10-22] MEDS: HYDROGEN PEROXIDE 3% 118 ML BOTTLE TOP SCH ×2 (09:51→21:12)
--- NOTE | 2022-10-22 12:04 | NUR ---
RADHIKA notified patient's mother, Mar by email that the next IDT meeting for the patient is scheduled for 10/30/2022 at 11am. RADHIKA asked Mar to let RADHIKA know if she would like to participate in the meeting by speaker phone.
--- NOTE | 2022-10-22 15:07 | NUR ---
PT. WAS SEEN AND EXAMINED BY GLADIS Mata AND WITH SHARANO.
[2022-10-22] MEDS: FERROUS SULFATE 330 MG/7.5 ML UDC- FOR SA ONLY GT SCH (20:01)
[2022-10-22] MEDS: MELATONIN 3 MG TABLET GT SCH (20:01)
[2022-10-22] MEDS: SENNOSIDES 1 TABLET GT SCH (20:03)
[2022-10-22] MEDS: MULTIVIT, IRON, MIN NO. 8, FA TABLET GT SCH (20:03)
[2022-10-23] MEDS: POLYVINYL ALCOHOL OPHT DROPS 15 ML BOTTLE EACHEYE SCH ×6 (04:47→20:23)
[2022-10-23] MEDS: CHOLECALCIFEROL 1,000 UNIT TABLET GT SCH (05:03)
[2022-10-23] MEDS: OMEPRAZOLE 40 MG CAPSULE.DR GT SCH (05:03)
[2022-10-23] MEDS: METOCLOPRAMIDE HCL 10 MG TABLET GT SCH ×4 (05:03→17:38)
[2022-10-23] MEDS: BACLOFEN 10 MG TABLET GT SCH ×3 (05:03→22:23)
[2022-10-23] MEDS: HYDROGEN PEROXIDE 3% 118 ML BOTTLE TOP SCH ×2 (07:40→21:50)
[2022-10-23] MEDS: MINERAL OIL/PETROLAT OPHT OINT 3.5 GM TUBE EACHEYE SCH ×2 (09:17→20:23)
[2022-10-23] MEDS: LACTULOSE 20 G/30 ML LIQUID UDC GT SCH ×2 (09:17→20:24)
[2022-10-23] MEDS: DOCUSATE SODIUM 100 MG/10 ML LIQUID UDC GT SCH ×2 (09:18→20:26)
[2022-10-23] MEDS: DESMOPRESSIN 0.1 MG TABLET GT SCH (09:18)
[2022-10-23] MEDS: levETIRAcetam 500 MG/5 ML LIQUID UDC GT SCH ×2 (09:19→20:29)
[2022-10-23] MEDS: MIDODRINE HCL 5 MG TABLET GT SCH ×2 (09:23→20:30)
[2022-10-23] MEDS: LACOSAMIDE 100 MG/10 ML UDC GT SCH ×2 (09:24→20:32)
[2022-10-23] MEDS: VITAMINS A AND D OINT TP SCH (09:24)
[2022-10-23] MEDS: CHLORHEXIDINE GLUCONATE 15 ML MOUTHWASH MM SCH ×2 (09:24→17:38)
[2022-10-23] MEDS: REMEDY ESSENTIAL ZINC PASTE 113 GM TP SCH ×2 (09:24→20:32)
[2022-10-23] MEDS: NEOMY/BACITRAC/POLYMI OINT 28.35 GM TUBE TOP SCH ×2 (09:24→20:32)
[2022-10-23] MEDS: JEVITY 1.2 1000 ML LIQUID GT PRN (11:02)
[2022-10-23] MEDS: FERROUS SULFATE 330 MG/7.5 ML UDC- FOR SA ONLY GT SCH (20:26)
[2022-10-23] MEDS: MELATONIN 3 MG TABLET GT SCH (20:30)
[2022-10-23] MEDS: SENNOSIDES 1 TABLET GT SCH (20:30)
[2022-10-23] MEDS: MULTIVIT, IRON, MIN NO. 8, FA TABLET GT SCH (20:30)
[2022-10-24] MEDS: POLYVINYL ALCOHOL OPHT DROPS 15 ML BOTTLE EACHEYE SCH ×7 (00:21→23:02)
[2022-10-24] MEDS: METOCLOPRAMIDE HCL 10 MG TABLET GT SCH ×4 (00:21→17:54)
[2022-10-24] MEDS: OMEPRAZOLE 40 MG CAPSULE.DR GT SCH (06:17)
[2022-10-24] MEDS: CHOLECALCIFEROL 1,000 UNIT TABLET GT SCH (06:17)
[2022-10-24] MEDS: BACLOFEN 10 MG TABLET GT SCH ×3 (06:17→22:00)
[2022-10-24] MEDS: HYDROGEN PEROXIDE 3% 118 ML BOTTLE TOP SCH ×2 (08:36→21:17)
[2022-10-24] MEDS: LACTULOSE 20 G/30 ML LIQUID UDC GT SCH ×2 (08:44→20:31)
[2022-10-24] MEDS: MINERAL OIL/PETROLAT OPHT OINT 3.5 GM TUBE EACHEYE SCH ×2 (08:44→20:30)
[2022-10-24] MEDS: BISACODYL 10 MG SUPP.RECT RC SCH (08:44)
[2022-10-24] MEDS: DOCUSATE SODIUM 100 MG/10 ML LIQUID UDC GT SCH ×2 (08:45→20:32)
[2022-10-24] MEDS: MIDODRINE HCL 5 MG TABLET GT SCH ×2 (08:53→20:34)
[2022-10-24] MEDS: REMEDY ESSENTIAL ZINC PASTE 113 GM TP SCH ×2 (08:53→20:34)
[2022-10-24] MEDS: levETIRAcetam 500 MG/5 ML LIQUID UDC GT SCH ×2 (08:53→20:33)
[2022-10-24] MEDS: CHLORHEXIDINE GLUCONATE 15 ML MOUTHWASH MM SCH ×2 (08:53→17:54)
[2022-10-24] MEDS: NEOMY/BACITRAC/POLYMI OINT 28.35 GM TUBE TOP SCH ×2 (08:53→20:34)
[2022-10-24] MEDS: DESMOPRESSIN 0.1 MG TABLET GT SCH (08:53)
[2022-10-24] MEDS: LACOSAMIDE 100 MG/10 ML UDC GT SCH ×2 (08:53→20:34)
[2022-10-24] MEDS: VITAMINS A AND D OINT TP SCH (08:53)
[2022-10-24] MEDS: FERROUS SULFATE 330 MG/7.5 ML UDC- FOR SA ONLY GT SCH (20:32)
[2022-10-24] MEDS: MELATONIN 3 MG TABLET GT SCH (20:34)
[2022-10-24] MEDS: MULTIVIT, IRON, MIN NO. 8, FA TABLET GT SCH (20:34)
[2022-10-24] MEDS: SENNOSIDES 1 TABLET GT SCH (20:34)
[2022-10-25] MEDS: POLYVINYL ALCOHOL OPHT DROPS 15 ML BOTTLE EACHEYE SCH ×6 (04:00→23:52)
[2022-10-25] MEDS: CHOLECALCIFEROL 1,000 UNIT TABLET GT SCH (05:16)
[2022-10-25] MEDS: METOCLOPRAMIDE HCL 10 MG TABLET GT SCH ×5 (05:16→23:52)
[2022-10-25] MEDS: OMEPRAZOLE 40 MG CAPSULE.DR GT SCH (05:16)
[2022-10-25] MEDS: BACLOFEN 10 MG TABLET GT SCH ×3 (05:16→21:45)
[2022-10-25] MEDS: DOCUSATE SODIUM 100 MG/10 ML LIQUID UDC GT SCH ×2 (09:04→20:19)
[2022-10-25] MEDS: CHLORHEXIDINE GLUCONATE 15 ML MOUTHWASH MM SCH ×2 (09:04→17:26)
[2022-10-25] MEDS: REMEDY ESSENTIAL ZINC PASTE 113 GM TP SCH ×2 (09:04→20:19)
[2022-10-25] MEDS: levETIRAcetam 500 MG/5 ML LIQUID UDC GT SCH ×2 (09:04→20:19)
[2022-10-25] MEDS: VITAMINS A AND D OINT TP SCH (09:04)
[2022-10-25] MEDS: LACTULOSE 20 G/30 ML LIQUID UDC GT SCH ×2 (09:04→20:19)
[2022-10-25] MEDS: MINERAL OIL/PETROLAT OPHT OINT 3.5 GM TUBE EACHEYE SCH ×2 (09:04→20:19)
[2022-10-25] MEDS: MIDODRINE HCL 5 MG TABLET GT SCH ×2 (09:04→20:34)
[2022-10-25] MEDS: LACOSAMIDE 100 MG/10 ML UDC GT SCH ×2 (09:04→20:19)
[2022-10-25] MEDS: NEOMY/BACITRAC/POLYMI OINT 28.35 GM TUBE TOP SCH ×2 (09:04→20:19)
[2022-10-25] MEDS: DESMOPRESSIN 0.1 MG TABLET GT SCH (09:04)
[2022-10-25] MEDS: HYDROGEN PEROXIDE 3% 118 ML BOTTLE TOP SCH ×2 (09:28→19:12)
--- NOTE | 2022-10-25 18:58 | NUR ---
NEW ORDER CARRIED OUT FROM DR. WELCH(REFINERY OPERATOR POLYMERIZATION PLANT FOR DR. CRAWFORD) AND PT'S MOTHER AWARE AND IN AGREEMENT IN ORDER TO F/U HYPERLIPIDEMIA.
[2022-10-25] MEDS: SENNOSIDES 1 TABLET GT SCH (20:19)
[2022-10-25] MEDS: MULTIVIT, IRON, MIN NO. 8, FA TABLET GT SCH (20:19)
[2022-10-25] MEDS: FERROUS SULFATE 330 MG/7.5 ML UDC- FOR SA ONLY GT SCH (20:19)
[2022-10-25] MEDS: MELATONIN 3 MG TABLET GT SCH (20:19)
[2022-10-26] MEDS: POLYVINYL ALCOHOL OPHT DROPS 15 ML BOTTLE EACHEYE SCH ×4 (04:00→16:24)
[2022-10-26] MEDS: METOCLOPRAMIDE HCL 10 MG TABLET GT SCH ×2 (05:35→12:38)
[2022-10-26] MEDS: OMEPRAZOLE 40 MG CAPSULE.DR GT SCH (05:35)
[2022-10-26] MEDS: CHOLECALCIFEROL 1,000 UNIT TABLET GT SCH (05:35)
[2022-10-26] MEDS: BACLOFEN 10 MG TABLET GT SCH ×2 (05:35→14:00)
[2022-10-26] MEDS: HYDROGEN PEROXIDE 3% 118 ML BOTTLE TOP SCH (07:45)
--- NOTE | 2022-10-26 08:30 | NUR ---
PT. WAS SEEN AND EXAMINED BY DR. MARIA AND WITH NEW ORDERS CARRIED OUT.
[2022-10-26] MEDS: BISACODYL 10 MG SUPP.RECT RC SCH (08:48)
[2022-10-26] MEDS: LACTULOSE 20 G/30 ML LIQUID UDC GT SCH (08:48)
[2022-10-26] MEDS: MINERAL OIL/PETROLAT OPHT OINT 3.5 GM TUBE EACHEYE SCH (08:48)
[2022-10-26] MEDS: DOCUSATE SODIUM 100 MG/10 ML LIQUID UDC GT SCH (08:49)
[2022-10-26] MEDS: levETIRAcetam 500 MG/5 ML LIQUID UDC GT SCH (08:49)
[2022-10-26] MEDS: DESMOPRESSIN 0.1 MG TABLET GT SCH (08:49)
[2022-10-26 08:50] VITALS: BP 116/71
[2022-10-26] MEDS: MIDODRINE HCL 5 MG TABLET GT SCH (08:50)
[2022-10-26] MEDS: VITAMINS A AND D OINT TP SCH (08:50)
[2022-10-26] MEDS: LACOSAMIDE 100 MG/10 ML UDC GT SCH (08:50)
[2022-10-26] MEDS: REMEDY ESSENTIAL ZINC PASTE 113 GM TP SCH (08:50)
[2022-10-26] MEDS: CHLORHEXIDINE GLUCONATE 15 ML MOUTHWASH MM SCH (08:50)
[2022-10-26] MEDS: NEOMY/BACITRAC/POLYMI OINT 28.35 GM TUBE TOP SCH (08:50)
[2022-10-26] MEDS ORDERED: GEMFIBROZIL 600 MG TABLET GT SCH (09:00)
--- NOTE | 2022-10-26 09:54 | NUR ---
DR. PATRICIA (NEUROLOGIST) WAS CALLED AND AWARE OF CONSULT TO EVALUATE "ON GOING TWITCHING" WHEN AWAKE.
[2022-10-26] MEDS: JEVITY 1.2 1000 ML LIQUID GT PRN (12:51)
--- NOTE | 2022-10-26 13:34 | NUR ---
DR. PATRICIA CALLED AGAIN AND REMINDED ABOUT THE CONSULTATION.
--- NOTE | 2022-10-26 14:07 | NUR ---
DR. PATRICIA (NEUROLOGIST) CALLED BACK AND WITH NEW ORDERS CARRIED OUT FOR EEG AND PT'S MOTHER WAS CALLED AND AWARE WITH A MESSAGE AND A REQUEST TO CALL BACK.
--- NOTE | 2022-10-26 16:34 | NUR ---
DR. PATRICIA CAME TO SEE PT. AND TOLD CH. NURSE THAT HE WANTS TO TRANSFER PT. BECAUSE HE IS SHOWING SEIZURE ACTIVITY AND HE STATED THAT HE WANTS TO TREAT HIM IN THE ACUTE SETTING AND THAT HE WILL CONTACT DR. JULISSA CRAWFORD .PT'S MOTHER WAS NOTIFIED AND IN AGREEMENT WITH TRANSFER.
--- NOTE | 2022-10-26 16:45 | NUR ---
NEW ORDER CARRIED OUT FROM DR. WELCH(INCINERATOR PLANT GENERAL SUPERVISOR FOR DR. JULISSA CRAWFORD) TO TRANSFER PT. TO ER TO BE EVALUATED FOR STATUS EPILEPTICUS DR. PATRICIA(NEUROLOGIST) RECOMMENDED AND AFTER HE SPOKE TO HER.PT'S MOTHER WAS NOTIFIED AND IN AGREEMENT.
--- NOTE | 2022-10-26 16:45 | NUR ---
NURSING SUPERINTENDENT NONSELLING CLAYTON AWARE OF TRANSFER AND ALSO ER NURSE TIFFANY WHOM RECEIVED REPORT AND PT'S MOTHER AND ALSO DR. MARIA .
--- NOTE | 2022-10-26 16:50 | NUR ---
V/S DURING TRANSFER FOLLOW:B/P 114/71,TEMP 97 F, HR 63 F,02 SAT 99%,RR 18X',P/A 0/10 .CHECKED INTACT AND CLEAR SKIN.PT. TRANSFERRED WITH RT AT BEDSIDE AND BED ON HOLD X 7 DAYS.
--- NOTE | 2022-10-26 16:52 | NUR ---
PATIENT WAS TRANSFERRED TO ER FOR EVALUATION WITH RT
--- NOTE | 2022-10-26 17:00 | NUR ---
REPORT WAS GIVEN TO ER AT ER UNIT.
[2023-07-21] MEDS ORDERED: TUBERCULIN,PURIF.PROT.DERIV. 5 TU/0.1 ML TEST ID SCH (12:00)
== END 2022-11-02 17:00 | disposition short-term general hospital (02) | DRG 207 ==
LOC: SA → UNDOADMIN 08-14 07:10 → SA 08-14 07:10
PROVIDERS: ADMIT Internal Medicine Pulmonary Disease; ATTEND Internal Medicine Pulmonary Disease
PROC: 5A1955Z Respiratory Ventilation, Greater than 96 Consecutive Hours (ICD-10-PCS; principal; 2022-08-12)
DX: J96.11 Chronic respiratory failure with hypoxia (principal); D68.59 Other primary thrombophilia; E23.2 Diabetes insipidus; G93.1 Anoxic brain damage, not elsewhere classified; Z99.11 Dependence on respirator [ventilator] status; D64.9 Anemia, unspecified; E78.1 Pure hyperglyceridemia; G40.901 Epilepsy, unspecified, not intractable, with status epilepticus; E78.5 Hyperlipidemia, unspecified; H16.9 Unspecified keratitis; K76.0 Fatty (change of) liver, not elsewhere classified; L60.0 Ingrowing nail; N31.9 Neuromuscular dysfunction of bladder, unspecified; Z87.440 Personal history of urinary (tract) infections; R13.10 Dysphagia, unspecified; Z20.822 Contact with and (suspected) exposure to COVID-19; Z93.0 Tracheostomy status; Z93.1 Gastrostomy status; I69.298 Other sequelae of other nontraumatic intracranial hemorrhage
CPT/HCPCS: 36415; 70030-TC; 76705; 82533; 83735; 84100; 84443; 85025; 86704; 86705; 86706; 86708; 86709; 86803; 87340; 87350; 94003; 94640; 95819; A6209; U0003

== ENCOUNTER 2022-10-26 17:08 | Inpatient (IN) | payer OTHER ==
[~2022-10-26] VITALS: Ht 180.3 cm; Wt 82.6 kg
[2022-10-26] MEDS ORDERED: IV NORMAL SALINE 1000 ML BAG IV ONE (17:15)
--- NOTE | 2022-10-26 17:19 | NUR ---
PT TRANSFERRED TO ER FOR SEIZURE. PT IS TRACH TO VENT. VENT SETTINGS AC10/VT450/32% (3LPM) /+5 OF PEEP. PT HAS A SHILEY 8 CUFFED TRACH WHICH IS SECURED AND INTATC. AIRWAY PATENT. PT COMFORTABLE SHOWING NO SIGNS OF DISTRESS. BACK UP TRACH AND AMBU BAG BY BEDSIDE. WILL CONTINUE TO MONITOR.
[2022-10-26 17:23] LABS: HEMATOCRIT 35.1 % (36.7-47.1); MEAN CORPUSCULAR HEMOGLOBIN 31.5 uug (23.8-33.4); MEAN CORPUSCULAR VOLUME 93.1 fL (73.0-96.2); PLATELET COUNT (AUTO) 299 K/uL (152-348)
[2022-10-26] MEDS ORDERED: levETIRAcetam IV 2,000 MG in IV DEXTROSE 5% 100 ML IV ONE (17:30)
[2022-10-26 17:46] LABS: ALANINE AMINOTRANSFERASE 73 U/L (16-63); ALKALINE PHOSPHATASE 171 U/L (50-136); ASPARTATE AMINOTRANSFERASE 30 U/L (15-37); BILIRUBIN,DIRECT < 0.1 mg/dL (0.0-0.2); BILIRUBIN,TOTAL 0.5 mg/dL (0.2-1.0); CARBON DIOXIDE 26 mmol/L (21-32); CHLORIDE 100 mmol/L (98-107); CREATININE 0.6 mg/dL (0.6-1.3); GLUCOSE 114 mg/dL (74-106); POTASSIUM 3.9 mmol/L (3.5-5.1); TOTAL PROTEIN, SERUM 8.5 g/dL (6.4-8.2); UREA NITROGEN, BLOOD 9 mg/dL (7-18)
[2022-10-26] MEDS ORDERED: levETIRAcetam 500 MG/5 ML LIQUID UDC ONE (18:02)
--- NOTE | 2022-10-26 18:45 | NUR ---
Sylwia finished infusing.
--- NOTE | 2022-10-26 19:03 | NUR ---
Received report from ANTON Mcgrath.
[2022-10-26] MEDS ORDERED: ONDANSETRON 4 MG/2 ML VIAL IV PRN (19:15)
[2022-10-26] MEDS ORDERED: ACETAMINOPHEN 325 MG TABLET PO PRN (19:15)
[2022-10-26] MEDS ORDERED: REMEDY ESSENTIAL ZINC PASTE 113 GM TP PRN (19:15)
--- NOTE | 2022-10-26 19:28 | NUR ---
Patient taken down for CT with bench lay out technician and RT.
--- NOTE | 2022-10-26 19:45 | NUR ---
Patient back from CT.
--- NOTE | 2022-10-26 20:45 | NUR ---
Patient sleeping. NAD noted. No signs of labored breathing observed. HR 53, O2 sat 98% on vent.
--- NOTE | 2022-10-26 20:55 | NUR ---
Called CCU for bed, given rm 5.
--- NOTE | 2022-10-26 21:00 | NUR ---
Informed patient mother, Mar Garcia that he will be transfered [facility] ICU[facility]CCU rm 5.
--- NOTE | 2022-10-26 22:10 | NUR ---
Patient awake. NAD noted.
--- NOTE | 2022-10-26 22:16 | NUR ---
Covid swab sent to lab.
--- NOTE | 2022-10-26 22:42 | NUR ---
Report given to ANTON Chau.
[2022-10-27] VITALS (24 sets, daily range): BP systolic 87–130; BP diastolic 50–74
--- NOTE | 2022-10-27 | NUR ---
Pt. admitted to ICU/CCU rm 5, under care of FATEMEH Cormier. Belongs List completed ANTON Springer aware of patient's arrival to unit.
[2022-10-27] MEDS ORDERED: CEFEPIME HCL 1 G VIAL ONE (01:01)
[2022-10-27] MEDS: CEFEPIME HCL 2 G in IV DEXTROSE 5% 100 ML IV SCH ×3 (01:29→21:11)
--- NOTE | 2022-10-27 01:40 | NUR ---
ADMISSION NOTE Patient admitted to CCU Bed 5 via bed accompanied by Lila WALTON and RT barton. Pt is alert and non-verbal. No siezure activity noted. Pt made comfortable. Vital signs stable on arrival to the unit. Pt's mom called soon after, update given re: patient's arrival on the unit.
[2022-10-27] MEDS ORDERED: LACOSAMIDE 50 MG TABLET GT ONE ×2 (02:30→02:45)
[2022-10-27] MEDS: LACOSAMIDE 200 MG in IV NORMAL SALINE 100 ML IV SCH ×3 (02:56→21:10)
[2022-10-27 05:16] LABS: HEMATOCRIT 34.9 % (36.7-47.1); MEAN CORPUSCULAR HEMOGLOBIN 31.2 uug (23.8-33.4); MEAN CORPUSCULAR VOLUME 92.7 fL (73.0-96.2); PLATELET COUNT (AUTO) 286 K/uL (152-348)
[2022-10-27 05:34] LABS: CARBON DIOXIDE 27 mmol/L (21-32); CHLORIDE 104 mmol/L (98-107); CREATININE 0.7 mg/dL (0.6-1.3); GLUCOSE 84 mg/dL (74-106); PHOSPHOROUS 4.2 mg/dL (2.5-4.9); POTASSIUM 4.2 mmol/L (3.5-5.1); UREA NITROGEN, BLOOD 8 mg/dL (7-18)
[2022-10-27 05:35] LABS: BILIRUBIN,DIRECT 0.1 mg/dL (0.0-0.2); BILIRUBIN,TOTAL 0.4 mg/dL (0.2-1.0); TOTAL PROTEIN, SERUM 8.2 g/dL (6.4-8.2)
[2022-10-27 08:10] LABS: ABG BASE EXCESS -1.6 mmol/L; ABG HCO3 23.6 mmol/L; ABG PCO2 41.4 mmHg (35.0-45.0); ABG PH 7.373 (7.350-7.450); ABG PO2 172.9 mmHg (75.0-100.0); ABG SITE RIGHT RADIAL; ABG TOTAL HEMOGLOBIN 12.8 G/dL (13.5-18.0); COHb 0.5 % (0.5-1.5); MetHb 0.3 % (0.0-1.5); O2Hb 98.3 % (94.0-97.0); VENT MODE VENT - A/C; VT, ABG 450 mL
--- NOTE | 2022-10-27 08:50 | NUR ---
End of Shift Summary Pt had a relatively uneventful shift. A few petit mal siezures observed, which included patient just starining and twitching for a few seconds. Pt does not appear to be in any distress. Dr. Griffith at bedside at 0700 and he was updated with shalomre observations. Pt's mother called and promised to visit in the morning after 09:30. Vital signs stable at the end of the shift. Report endorsed to Elsy Boswell RN
[2022-10-27] MEDS ORDERED: levETIRAcetam IV 1,000 MG in IV DEXTROSE 5% 100 ML IV SCH (09:00)
[2022-10-27] MEDS: PANTOPRAZOLE SODIUM 40 MG VIAL IV SCH (09:27)
[2022-10-27] MEDS: IV NS 1000 ML 1,000 ML IV PRN (10:00)
[2022-10-27] MEDS ORDERED: levETIRAcetam IV 1,000 MG in IV DEXTROSE 5% 100 ML IV ONE (11:00)
[2022-10-27] MEDS: LORAZEPAM 2 MG/1 ML VIAL IV PRN (13:46)
[2022-10-27] MEDS: JEVITY 1.2 1000 ML LIQUID GT PRN (15:34)
--- NOTE | 2022-10-27 16:35 | NUR ---
pt mother called back and stated "my pharmacy said there is no interaction between the medications and that as long as your pharmacy says its okay then I am good with it".
[2022-10-27] MEDS: MIDAZOLAM HCL 50 MG in IV NORMAL SALINE 40 ML IV PRN (16:39)
--- NOTE | 2022-10-27 17:35 | NUR ---
pt mom concerned about possible interaction of antibiotics with anti seizure medications. She spoke directly with neurologist and was told that he will check with pharmacy. Pt mom stated "that the medical team's plan from the previous hospital was to treat the pts UTI and then the seizures due to interactions", this is where her concern comes from. Orders were given to start versed drip and she did not feel comfortable with that so she said she will check with her pharmacy and with ours to verify compatibility before giving us the okay to give the medication. will wait for her call back. Addendum: 10/28/22 at 0903 by RORY MOREIRA RN conversation took place at around 1600 10/27/22
[2022-10-27] MEDS: levETIRAcetam IV 2,000 MG in IV DEXTROSE 5% 100 ML IV SCH (21:10)
[2022-10-28] VITALS (21 sets, daily range): BP systolic 90–125; BP diastolic 6–92
[2022-10-28] MEDS: IV NS 1000 ML 1,000 ML IV PRN ×2 (01:27→15:03)
[2022-10-28 05:15] LABS: HEMATOCRIT 32.5 % (36.7-47.1); MEAN CORPUSCULAR HEMOGLOBIN 31.5 uug (23.8-33.4); MEAN CORPUSCULAR VOLUME 93.3 fL (73.0-96.2); PLATELET COUNT (AUTO) 276 K/uL (152-348)
[2022-10-28 05:28] LABS: CARBON DIOXIDE 24 mmol/L (21-32); CHLORIDE 107 mmol/L (98-107); CREATININE 0.7 mg/dL (0.6-1.3); GLUCOSE 116 mg/dL (74-106); MAGNESIUM 1.9 mg/dL (1.8-2.4); PHOSPHOROUS 3.4 mg/dL (2.5-4.9); POTASSIUM 3.8 mmol/L (3.5-5.1); UREA NITROGEN, BLOOD 10 mg/dL (7-18)
--- NOTE | 2022-10-28 08:00 | NUR ---
pt in bed, eyes open, arousable to light touch, still having active seizures, on versed drip at 2.5, will increase to 3 if seizures continue, per orders. pt on trach, TV 450, AC 10, Peep 5, Fio2 30%, #8 shiley saturating at 97%, pt does not appear to be in any distress. g tube in place, IV sites are patent, dressing in tact, no signs of infiltration noted. pt urinating in diaper, will continue to monitor.
[2022-10-28] MEDS: levETIRAcetam IV 2,000 MG in IV DEXTROSE 5% 100 ML IV SCH ×2 (09:11→20:49)
[2022-10-28] MEDS: CEFEPIME HCL 2 G in IV DEXTROSE 5% 100 ML IV SCH ×2 (09:11→20:49)
[2022-10-28] MEDS: PANTOPRAZOLE SODIUM 40 MG VIAL IV SCH (09:12)
[2022-10-28] MEDS: LACOSAMIDE 200 MG in IV NORMAL SALINE 100 ML IV SCH ×2 (09:12→21:04)
[2022-10-28] MEDS: JEVITY 1.2 1000 ML LIQUID GT PRN (09:14)
[2022-10-28] MEDS: MIDAZOLAM HCL 50 MG in IV NORMAL SALINE 40 ML IV PRN (09:49)
[2022-10-28 12:38] LABS: *BILIRUBIN,URIN NEGATIVE (NEGATIVE); *CLARITY,URINE CLEAR (CLEAR); *KETONES,URINE NEGATIVE (NEGATIVE); *UROBILINOGEN,URINE 0.2 E.U./dl (NORMAL); LEUKOCYTE ESTERASE ,URINE NEGATIVE (NEGATIVE); NITRITE, URINE NEGATIVE (NEGATIVE); UGLUCOSE NEGATIVE (NEGATIVE)
[2022-10-28 12:42] LABS: *BLOOD, URINE TRACE (NEGATIVE); *COLOR,URINE STRAW (YELLOW)
--- NOTE | 2022-10-28 13:30 | NUR ---
pt mother and brother at bedside, mom is still concerned about medication interactions. Reassured her that medications are checked through doctor and pharmacy and nurses before administration.
[2022-10-28 13:44] LABS: BACTERIA,URINE NONE SEEN /HPF (NONE SEEN); SQUAMOUS EPITHELIAL CELL,UR FEW /HPF (NONE SEEN); WBC,URINE 0-3 /HPF (0-3)
[2022-10-28] MEDS: GABAPENTIN 400 MG CAPSULE GT SCH ×2 (14:46→17:16)
--- NOTE | 2022-10-28 16:08 | NUR ---
orders for SCD and heparin from FATEMEH Cormier, will continue to monitor.
[2022-10-28] MEDS: POLYVINYL ALCOHOL OPHT DROPS 15 ML BOTTLE EACHEYE PRN ×2 (17:18→20:00)
[2022-10-28] MEDS: HEPARIN SODIUM,PORCINE 5,000 UNITS/ML VIAL SQ SCH (22:01)
[2022-10-29] VITALS (61 sets, daily range): BP systolic 84–116; BP diastolic 36–85
[2022-10-29] MEDS: POLYVINYL ALCOHOL OPHT DROPS 15 ML BOTTLE EACHEYE PRN ×4 (00:01→23:28)
[2022-10-29] MEDS: IV NS 1000 ML 1,000 ML IV PRN (02:30)
[2022-10-29 05:15] LABS: HEMATOCRIT 32.2 % (36.7-47.1); MEAN CORPUSCULAR VOLUME 93.1 fL (73.0-96.2); PLATELET COUNT (AUTO) 245 K/uL (152-348)
[2022-10-29 05:32] LABS: CARBON DIOXIDE 27 mmol/L (21-32); CHLORIDE 109 mmol/L (98-107); CREATININE 0.6 mg/dL (0.6-1.3); GLUCOSE 105 mg/dL (74-106); MAGNESIUM 1.9 mg/dL (1.8-2.4); PHOSPHOROUS 3.5 mg/dL (2.5-4.9); POTASSIUM 3.5 mmol/L (3.5-5.1); UREA NITROGEN, BLOOD 8 mg/dL (7-18)
[2022-10-29 07:25] LABS: ABG BASE EXCESS -2.2 mmol/L; ABG HCO3 23.3 mmol/L; ABG PCO2 42.6 mmHg (35.0-45.0); ABG PH 7.356 (7.350-7.450); ABG PO2 123.8 mmHg (75.0-100.0); ABG SITE LEFT RADIAL; ABG TOTAL HEMOGLOBIN 14.5 G/dL (13.5-18.0); MetHb 0.1 % (0.0-1.5); O2Hb 97.4 % (94.0-97.0); VENT MODE VENT - A/C; VT, ABG 450 mL
[2022-10-29] MEDS: MIDAZOLAM HCL 50 MG in IV NORMAL SALINE 40 ML IV PRN (08:09)
[2022-10-29] MEDS: LACOSAMIDE 200 MG in IV NORMAL SALINE 100 ML IV SCH ×2 (08:55→23:30)
[2022-10-29] MEDS: CEFEPIME HCL 2 G in IV DEXTROSE 5% 100 ML IV SCH ×2 (08:55→22:30)
[2022-10-29] MEDS: PANTOPRAZOLE SODIUM 40 MG VIAL IV SCH (08:57)
[2022-10-29] MEDS ORDERED: PHENYTOIN SODIUM IV 1,000 MG in IV NORMAL SALINE 100 ML IV ONE (09:00)
[2022-10-29] MEDS: HEPARIN SODIUM,PORCINE 5,000 UNITS/ML VIAL SQ SCH ×2 (09:04→23:00)
[2022-10-29] MEDS: levETIRAcetam IV 2,000 MG in IV DEXTROSE 5% 100 ML IV SCH ×2 (09:30→22:18)
[2022-10-29] MEDS ORDERED: PHENYTOIN SODIUM 100 MG/2 ML VIAL IV SCH (18:00)
--- NOTE | 2022-10-29 19:28 | NUR ---
A call from neurologist Dr. Parra orders to change dilating IV to 200mg Q12 hours received with first dose to be given tonight. primary R.N. informed.
--- NOTE | 2022-10-29 20:00 | NUR ---
PT ARRIVED FROM ICU. REPORT RECEIVED FROM HECTOR WALTON.
--- NOTE | 2022-10-29 20:10 | NUR ---
RT AT BEDSIDE SUCTIONING PT. PT MARISA WELL.
[2022-10-29] MEDS ORDERED: PHENYTOIN SODIUM IV 500 MG in IV NORMAL SALINE 50 ML IV SCH (21:00)
--- NOTE | 2022-10-29 21:01 | NUR ---
PT CONTINUE WITH TWITCHING OF THE MOUTD. PLACED ON DILANTIN IV STAT EEG OBTAINED THIS PM. NO GRAND MAL SEIZURES NOTED. PT TRANSFERRED TO ED FOR FURTHER CARE. REPORT GIVEN
[2022-10-29] MEDS ORDERED: PHENYTOIN SODIUM 250 MG/5 ML VIAL IV ONE (22:24)
[2022-10-29] MEDS ORDERED: HEPARIN SODIUM,PORCINE 5,000 UNITS/ML VIAL ONE (22:25)
--- NOTE | 2022-10-29 23:45 | NUR ---
RT AT BEDSIDE SUCTIONING PT.
[2022-10-30] VITALS (58 sets, daily range): BP systolic 58–131; BP diastolic 49–79
--- NOTE | 2022-10-30 01:00 | NUR ---
PT WAS GIVEN PARTIAL BEDBATH AND DEANNA CARE. A CONDOM CATH WAS PLACED WITH CLEAR YELLOW URINE RESULTING.
[2022-10-30] MEDS: IV NS 1000 ML 1,000 ML IV PRN ×2 (01:51→17:52)
[2022-10-30] MEDS: MIDAZOLAM HCL 50 MG in IV NORMAL SALINE 40 ML IV PRN ×2 (02:02→21:46)
--- NOTE | 2022-10-30 02:15 | NUR ---
EYE GTTS PLACED IN ROSEY EYES PER MD ORDER.
--- NOTE | 2022-10-30 03:45 | NUR ---
RT AT BEDSIDE DOING ENDO TRACHEAL SUCTIONING. SM AMT CLEAR / WHITE SECREATIONS RESULTING.
[2022-10-30 04:53] LABS: HEMATOCRIT 32.4 % (36.7-47.1); MEAN CORPUSCULAR HEMOGLOBIN 32.2 uug (23.8-33.4); MEAN CORPUSCULAR VOLUME 94.4 fL (73.0-96.2); PLATELET COUNT (AUTO) 237 K/uL (152-348)
[2022-10-30 05:18] LABS: CARBON DIOXIDE 26 mmol/L (21-32); CHLORIDE 108 mmol/L (98-107); CREATININE 0.5 mg/dL (0.6-1.3); GLUCOSE 104 mg/dL (74-106); MAGNESIUM 1.9 mg/dL (1.8-2.4); PHOSPHOROUS 3.5 mg/dL (2.5-4.9); POTASSIUM 3.9 mmol/L (3.5-5.1); UREA NITROGEN, BLOOD 7 mg/dL (7-18)
--- NOTE | 2022-10-30 06:00 | NUR ---
PT'S G TUBE FEEDING ( JEVITY 1.2) STOPPED PER MD ORDER.
--- NOTE | 2022-10-30 07:00 | NUR ---
Received pt. on youth nutritional monitor sinus bradycardia rate in the mid 40's. sbp in the upper 80's low 90's. As reported pt. spend the night within this parameters. trache to vent A/C10, 450 tv. +5 PEEP FIo2 30%. G-t with feeding to be resumed as ordered. Attending was immediately notified of low sbp awaiting call. back.
--- NOTE | 2022-10-30 07:23 | NUR ---
REPORT GIVEN TO JHONATAN WALTON.
--- NOTE | 2022-10-30 08:06 | NUR ---
After not receiving a response from attending Dr. Garner our electrical high tension tester notified of patient's condition orders to start pt. on Dopamine drip received.
[2022-10-30] MEDS: DOPamine IV DRIP 800 MG/250ML 250 ML IV PRN ×2 (08:30→23:29)
--- NOTE | 2022-10-30 08:30 | NUR ---
Pulmonary services, Dr. Griffith in the unit to follow up on pt. report given see order hx.
[2022-10-30] MEDS ORDERED: PANTOPRAZOLE SODIUM 40 MG TABLET.DR PO ONE (08:53)
[2022-10-30] MEDS ORDERED: HEPARIN SODIUM,PORCINE 5,000 UNITS/ML VIAL ONE ×2 (08:53→21:10)
[2022-10-30] MEDS: HEPARIN SODIUM,PORCINE 5,000 UNITS/ML VIAL SQ SCH ×2 (08:56→21:12)
[2022-10-30] MEDS: PHENYTOIN SODIUM IV 200 MG in IV NORMAL SALINE 50 ML IV SCH ×2 (09:04→20:05)
[2022-10-30] MEDS: levETIRAcetam IV 2,000 MG in IV DEXTROSE 5% 100 ML IV SCH ×2 (09:08→20:14)
[2022-10-30] MEDS: PANTOPRAZOLE ORAL SUSPENSION 40 MG SUSPDR.PKT GT SCH (09:12)
[2022-10-30] MEDS: LACOSAMIDE 200 MG in IV NORMAL SALINE 100 ML IV SCH ×2 (09:36→21:00)
[2022-10-30] MEDS: CEFEPIME HCL 2 G in IV DEXTROSE 5% 100 ML IV SCH ×2 (10:17→21:06)
--- NOTE | 2022-10-30 11:35 | NUR ---
Ernestine Luna at bedside to examine pt. at this time she witness patient going into seizure activity pt. shaked all his body, she was informed that patient is been having this epidsodes throughout the morning at this time also Yoko Little N.P. also in to examine pt. report given see order hx.
[2022-10-30] MEDS ORDERED: ONDANSETRON 4 MG/2 ML VIAL ONE (11:45)
[2022-10-30] MEDS ORDERED: LORAZEPAM 2 MG/1 ML VIAL ONE (11:46)
[2022-10-30] MEDS: LORAZEPAM 2 MG/1 ML VIAL IV PRN (11:49)
--- NOTE | 2022-10-30 11:51 | NUR ---
Residual check and zero obtained pt. with one episode of seizure medicated for both seizure activity and vomiting.
[2022-10-30] MEDS: JEVITY 1.2 1000 ML LIQUID GT PRN (17:49)
[2022-10-31] VITALS (47 sets, daily range): BP systolic 85–129; BP diastolic 40–78
[2022-10-31 04:47] LABS: MEAN CORPUSCULAR HEMOGLOBIN 31.7 uug (23.8-33.4); MEAN CORPUSCULAR VOLUME 92.5 fL (73.0-96.2); PLATELET COUNT (AUTO) 321 K/uL (152-348)
[2022-10-31 05:03] LABS: CARBON DIOXIDE 29 mmol/L (21-32); CHLORIDE 109 mmol/L (98-107); CREATININE 0.6 mg/dL (0.6-1.3); GLUCOSE 99 mg/dL (74-106); MAGNESIUM 1.9 mg/dL (1.8-2.4); PHOSPHOROUS 3.2 mg/dL (2.5-4.9); POTASSIUM 3.8 mmol/L (3.5-5.1); UREA NITROGEN, BLOOD 6 mg/dL (7-18)
[2022-10-31 05:08] LABS: BILIRUBIN,DIRECT 0.1 mg/dL (0.0-0.2); BILIRUBIN,TOTAL 0.4 mg/dL (0.2-1.0); TOTAL PROTEIN, SERUM 8.9 g/dL (6.4-8.2)
--- NOTE | 2022-10-31 06:51 | NUR ---
Left pt. resting comfortable on NSR on dopamine with sbp within desired limits. Neuro-kelly remains unchanged retracting forcefully with suctioning and with repositioning, during shift lab technician no seizure activity noted. Remains on ventilator with no changes, saturation above 95%, no tachypnea or SOB. PEG with feeding running at goal therapy no residuals, no BM. Condom catheter with adequate output. No injury or new skin issues noted. Ml with scant leaking. a new access started. Will endorse to incoming shift.
[2022-10-31] MEDS ORDERED: HEPARIN SODIUM,PORCINE 5,000 UNITS/ML VIAL ONE ×2 (08:09→21:13)
[2022-10-31] MEDS: LACOSAMIDE 200 MG in IV NORMAL SALINE 100 ML IV SCH ×2 (08:14→21:00)
[2022-10-31] MEDS: CEFEPIME HCL 2 G in IV DEXTROSE 5% 100 ML IV SCH ×2 (08:14→21:44)
[2022-10-31] MEDS: PANTOPRAZOLE ORAL SUSPENSION 40 MG SUSPDR.PKT GT SCH (08:15)
[2022-10-31] MEDS: PHENYTOIN SODIUM IV 200 MG in IV NORMAL SALINE 50 ML IV SCH ×2 (08:16→21:37)
[2022-10-31] MEDS: POLYVINYL ALCOHOL OPHT DROPS 15 ML BOTTLE EACHEYE PRN (08:16)
[2022-10-31] MEDS: HEPARIN SODIUM,PORCINE 5,000 UNITS/ML VIAL SQ SCH ×2 (08:18→21:39)
[2022-10-31 08:22] LABS: ABG BASE EXCESS -1.1 mmol/L; ABG PH 7.344 (7.350-7.450); ABG PO2 103.7 mmHg (75.0-100.0); ABG SITE RIGHT RADIAL; ABG TOTAL HEMOGLOBIN 13.8 G/dL (13.5-18.0); MetHb 0.2 % (0.0-1.5); O2Hb 96.6 % (94.0-97.0); VENT MODE VENT - A/C; VT, ABG 450 mL
[2022-10-31] MEDS: levETIRAcetam IV 2,000 MG in IV DEXTROSE 5% 100 ML IV SCH ×2 (10:43→22:10)
[2022-10-31] MEDS: IV NS 1000 ML 1,000 ML IV PRN (11:43)
--- NOTE | 2022-10-31 12:10 | NUR ---
neuro MAID HOUSEKEEPER in the room if patient experience anymore seizures can increase on versed drip.
[2022-10-31] MEDS: MIDAZOLAM HCL 50 MG in IV NORMAL SALINE 40 ML IV PRN (14:28)
--- NOTE | 2022-10-31 19:15 | NUR ---
REPORT RECEIVED FROM NAN WALTON. PT STABLE ON MONITOR, HAVING EEG DONE AT BEDSIDE.
[2022-10-31] MEDS ORDERED: CEFEPIME HCL 1 G VIAL ONE (21:13)
--- NOTE | 2022-10-31 22:00 | NUR ---
PT'S ORONA EMPTIED OF 320 ML CLEAR , YELLOW URINE.
--- NOTE | 2022-10-31 23:30 | NUR ---
NEW JEVITY 1.2 STARTED AFTER RESIDUAL CHECKED. RESIDUAL AMT 0.
[2022-11-01] VITALS (40 sets, daily range): BP systolic 88–136; BP diastolic 47–81
--- NOTE | 2022-11-01 | NUR ---
PT'S DOPAMINE INCREASED TO 3 MCG/KG/MIN /5.04 ML.
--- NOTE | 2022-11-01 00:59 | NUR ---
RT AT BEDSIDE SUCTIONING PT WITH SCANT SECREATIONS RESULTING.
--- NOTE | 2022-11-01 04:30 | NUR ---
PT'S DOPAMINE GGT INCREASED TO 5 MCG/.KG/MIN/8.4 ML/HR BECAUSE OF HYPOTENSION. VERSED GTT INCREASED TO 5 MG/HR BECAUSE OF INCREASED TREMORS. LAB AT BEDSIDE DRAWING LABS.
[2022-11-01 04:49] LABS: HEMATOCRIT 37.2 % (36.7-47.1); MEAN CORPUSCULAR HEMOGLOBIN 31.7 uug (23.8-33.4); MEAN CORPUSCULAR VOLUME 93.6 fL (73.0-96.2); PLATELET COUNT (AUTO) 295 K/uL (152-348)
--- NOTE | 2022-11-01 04:55 | NUR ---
PT'S O2 SAT WENT DOWN TO 83% ON 30% FIO2 ON THE VENT.RT WAS CALLED.
--- NOTE | 2022-11-01 05:00 | NUR ---
RT (SANA) SUCTIONED PT AND INCREASED THE FIO2 TO 50%. PT'S 02 SAT IS NOW 97%.
[2022-11-01 06:00] LABS: CARBON DIOXIDE 26 mmol/L (21-32); CHLORIDE 109 mmol/L (98-107); POTASSIUM 3.7 mmol/L (3.5-5.1)
[2022-11-01 06:01] LABS: CREATININE 0.7 mg/dL (0.6-1.3); GLUCOSE 103 mg/dL (74-106); MAGNESIUM 1.9 mg/dL (1.8-2.4); PHOSPHOROUS 3.8 mg/dL (2.5-4.9); UREA NITROGEN, BLOOD 7 mg/dL (7-18)
--- NOTE | 2022-11-01 06:20 | NUR ---
PT DESATTING TO 87%. RT (Duran ) CALLED.
--- NOTE | 2022-11-01 06:25 | NUR ---
RT (Duran) INCREASED PT'S FIO2 TO 60% ON THE VENT. O2 SA UP TO 98%.
--- NOTE | 2022-11-01 06:30 | NUR ---
PT DESATTING TO 89% ON 60% FIO2. CALLING RT.
--- NOTE | 2022-11-01 06:50 | NUR ---
RT AT BEDSIDE SUCTIONING AND DOING RESP LAVAGE. PT'S O2 SATIS 96%.
--- NOTE | 2022-11-01 07:12 | NUR ---
REPORT GIVEN TO NAN WALTON.
[2022-11-01] MEDS ORDERED: ACETAMINOPHEN 325 MG TABLET GT PRN (07:18)
[2022-11-01] MEDS: MIDAZOLAM HCL 50 MG in IV NORMAL SALINE 40 ML IV PRN ×2 (07:22→23:42)
[2022-11-01 07:59] LABS: ABG BASE EXCESS -1.4 mmol/L; ABG HCO3 24.1 mmol/L; ABG PCO2 43.5 mmHg (35.0-45.0); ABG PH 7.361 (7.350-7.450); ABG PO2 115.5 mmHg (75.0-100.0); ABG SITE RIGHT RADIAL; ABG TOTAL HEMOGLOBIN 13.4 G/dL (13.5-18.0); COHb 0.8 % (0.5-1.5); MetHb 0.2 % (0.0-1.5); O2Hb 97.4 % (94.0-97.0); VENT MODE VENT - A/C; VT, ABG 450 mL
[2022-11-01] MEDS: DOPamine IV DRIP 800 MG/250ML 250 ML IV PRN (08:13)
[2022-11-01] MEDS ORDERED: MIDODRINE HCL 5 MG TABLET ONE ×2 (08:21→20:54)
[2022-11-01] MEDS ORDERED: HEPARIN SODIUM,PORCINE 5,000 UNITS/ML VIAL ONE ×2 (08:21→20:54)
[2022-11-01] MEDS: LACOSAMIDE 200 MG in IV NORMAL SALINE 100 ML IV SCH (08:23)
[2022-11-01] MEDS: PANTOPRAZOLE ORAL SUSPENSION 40 MG SUSPDR.PKT GT SCH (08:23)
[2022-11-01] MEDS: MIDODRINE HCL 5 MG TABLET GT SCH ×2 (08:23→21:14)
[2022-11-01] MEDS: PHENYTOIN SODIUM IV 200 MG in IV NORMAL SALINE 50 ML IV SCH (08:24)
[2022-11-01] MEDS: HEPARIN SODIUM,PORCINE 5,000 UNITS/ML VIAL SQ SCH ×2 (08:25→21:17)
[2022-11-01] MEDS: levETIRAcetam IV 2,000 MG in IV DEXTROSE 5% 100 ML IV SCH (09:40)
[2022-11-01] MEDS: CEFEPIME HCL 2 G in IV DEXTROSE 5% 100 ML IV SCH ×2 (09:56→16:49)
[2022-11-01] MEDS: LACOSAMIDE 100 MG/10 ML UDC GT SCH (21:00)
[2022-11-01] MEDS ORDERED: LACOSAMIDE 50 MG TABLET ONE (21:01)
[2022-11-01] MEDS: PHENYTOIN 100 MG/4 ML UDC GT SCH (21:15)
[2022-11-01] MEDS: levETIRAcetam 500 MG/5 ML LIQUID UDC GT SCH (21:15)
[2022-11-01] MEDS: POLYVINYL ALCOHOL OPHT DROPS 15 ML BOTTLE EACHEYE PRN (21:35)
[2022-11-02] VITALS (24 sets, daily range): BP systolic 92–119; BP diastolic 46–80
[2022-11-02] MEDS: CEFEPIME HCL 2 G in IV DEXTROSE 5% 100 ML IV SCH ×3 (00:26→17:01)
[2022-11-02 04:48] LABS: HEMATOCRIT 34.4 % (36.7-47.1); MEAN CORPUSCULAR HEMOGLOBIN 31.6 uug (23.8-33.4); MEAN CORPUSCULAR VOLUME 93.9 fL (73.0-96.2); PLATELET COUNT (AUTO) 258 K/uL (152-348)
[2022-11-02 05:05] LABS: CARBON DIOXIDE 29 mmol/L (21-32); CHLORIDE 108 mmol/L (98-107); CREATININE 0.7 mg/dL (0.6-1.3); GLUCOSE 96 mg/dL (74-106); MAGNESIUM 1.9 mg/dL (1.8-2.4); PHOSPHOROUS 3.8 mg/dL (2.5-4.9); POTASSIUM 3.8 mmol/L (3.5-5.1); UREA NITROGEN, BLOOD 12 mg/dL (7-18)
[2022-11-02] MEDS: PHENYTOIN 100 MG/4 ML UDC GT SCH ×2 (08:15→20:31)
[2022-11-02] MEDS: levETIRAcetam 500 MG/5 ML LIQUID UDC GT SCH ×2 (08:15→20:31)
[2022-11-02] MEDS: PANTOPRAZOLE ORAL SUSPENSION 40 MG SUSPDR.PKT GT SCH (08:16)
[2022-11-02] MEDS ORDERED: MIDODRINE HCL 5 MG TABLET ONE ×2 (09:59→20:28)
[2022-11-02] MEDS ORDERED: HEPARIN SODIUM,PORCINE 5,000 UNITS/ML VIAL ONE ×2 (10:01→20:52)
[2022-11-02] MEDS: HEPARIN SODIUM,PORCINE 5,000 UNITS/ML VIAL SQ SCH ×2 (10:04→20:56)
[2022-11-02] MEDS ORDERED: LACOSAMIDE 50 MG TABLET ONE (10:08)
[2022-11-02] MEDS: MIDODRINE HCL 5 MG TABLET GT SCH ×2 (10:12→20:36)
[2022-11-02] MEDS ORDERED: LACOSAMIDE 100 MG/10 ML UDC ONE ×3 (10:17→20:34)
[2022-11-02] MEDS: LACOSAMIDE 100 MG/10 ML UDC GT SCH ×2 (10:19→20:35)
--- NOTE | 2022-11-02 12:00 | NUR ---
DIFFICULTY OBTAINING AN AXILLARY TEMP AT THIS TIME. RECTAL TEMP TAKEN X 2. 91.6 AND 91.4 F WARM BLANKETS PLACED ON PT. UNTIL BEAR HUGGGER ARRIVES TO FLOOR FROM [place]. NURSING BOOTMAKER HAND MADE AWARE [place] NOT ANSWERING AT THIS TIME. LEFT . SHE WILL PAGE THEM . PT. SKIN TEMP. IS WARM TO TOUCH MANUALLY X 4 EXTREMITIES. HOWEVER TWO DIFFERENT RECTAL THERMOMETERS USED BOTH REPORTING LOW 90'S.
[2022-11-02] MEDS: MIDAZOLAM HCL 50 MG in IV NORMAL SALINE 40 ML IV PRN ×2 (14:45→22:33)
--- NOTE | 2022-11-02 18:30 | NUR ---
Aldo.OMitra Waldrop CAN INSPECTOR if bladderscan > 500cc then catherize pt. one time order. Michael Swartz RN
--- NOTE | 2022-11-02 18:30 | NUR ---
Jaymie Richardson MUSICIAN INSTRUMENTAL to update on pt. status. UO low. T.O . to do bladder scan and if > than 500cc then place luu cath. Also made aware of pt. hypothermia resolving with bear hugger in use. Temp. now 96.4F. rectal. Bladder scan not workoing at this time. Bi Technical Lead went and obtained from 3rd floor nursing area and bladderscanner not working. Will let nursing supervisor cook house know
--- NOTE | 2022-11-02 19:30 | NUR ---
Pt. endorsed to oncoming shift primary RN Wendie. BIOFUELS PRODUCTION TECHNICIAN sx pt. and uo increased. See oncoming shift documentation. NO need to catherize pt. at this time. Pt. endorsed injury free. VS stable. Bed lbrakes locked. 2 SR up.
[2022-11-03] VITALS (35 sets, daily range): BP systolic 90–107; BP diastolic 45–77
[2022-11-03] MEDS: CEFEPIME HCL 2 G in IV DEXTROSE 5% 100 ML IV SCH ×3 (01:28→17:26)
[2022-11-03] MEDS: POLYVINYL ALCOHOL OPHT DROPS 15 ML BOTTLE EACHEYE PRN ×2 (01:38→08:03)
[2022-11-03 04:48] LABS: HEMATOCRIT 35.2 % (36.7-47.1); MEAN CORPUSCULAR HEMOGLOBIN 31.3 uug (23.8-33.4); MEAN CORPUSCULAR VOLUME 93.8 fL (73.0-96.2); PLATELET COUNT (AUTO) 265 K/uL (152-348)
[2022-11-03 05:20] LABS: CREATININE 0.8 mg/dL (0.6-1.3); MAGNESIUM 1.8 mg/dL (1.8-2.4); PHOSPHOROUS 4.5 mg/dL (2.5-4.9); POTASSIUM 3.5 mmol/L (3.5-5.1)
--- NOTE | 2022-11-03 06:43 | NUR ---
End of Shift Summary 1899: I recieved report from day shift RN. Pt is lying in bed with with a bear hugger and 2 blankets. Pt appeared flushed and warm to touch. 20:30 Temp is elevated. Bear Hugger removed and cold compress applied. No siezure activity noted. 00:00 pt is resting comfortably. 04:00: patient is resting comfortably, full bedbath with linen changed. Overall: no siezure activity noted. However patient is noted to have some twitching and is rigid when moved or when he experiences other tactile stimuli. Pt's mother called twice during the shift and was given the vital signs and an overal update of the patient's condition. Report endorsed to day sift RN. Pt's vital signs are stable at the change of shift.
--- NOTE | 2022-11-03 07:10 | NUR ---
Received pt. on manager hydraulic noted on NSR sbp within desired limits no need of vasopressors. Neuro-kelly garret with tactile stimuli. On ventilator Shiley 8, A/C 15, Tv450, FIO2 40% Peep +5. no respiratory distress, afebrile. ML LUE patent. G-t off at this time and to be resume as ordered, Stoma C.D.I.
[2022-11-03] MEDS ORDERED: PANTOPRAZOLE ORAL SUSPENSION 40 MG SUSPDR.PKT ONE (07:43)
[2022-11-03] MEDS ORDERED: HEPARIN SODIUM,PORCINE 5,000 UNITS/ML VIAL ONE ×2 (07:43→20:23)
[2022-11-03] MEDS ORDERED: LACOSAMIDE 100 MG/10 ML UDC ONE ×2 (07:43→20:23)
[2022-11-03] MEDS ORDERED: MIDODRINE HCL 5 MG TABLET ONE ×2 (07:44→20:23)
[2022-11-03] MEDS: PHENYTOIN 100 MG/4 ML UDC GT SCH ×2 (08:00→20:25)
[2022-11-03] MEDS: MIDODRINE HCL 5 MG TABLET GT SCH ×2 (08:00→20:27)
[2022-11-03] MEDS: PANTOPRAZOLE ORAL SUSPENSION 40 MG SUSPDR.PKT GT SCH (08:00)
[2022-11-03] MEDS: levETIRAcetam 500 MG/5 ML LIQUID UDC GT SCH ×2 (08:01→20:26)
[2022-11-03] MEDS: HEPARIN SODIUM,PORCINE 5,000 UNITS/ML VIAL SQ SCH ×2 (08:06→21:12)
[2022-11-03] MEDS: LACOSAMIDE 100 MG/10 ML UDC GT SCH ×2 (08:10→20:26)
--- NOTE | 2022-11-03 08:28 | NUR ---
Neurologist Dr. Parra in the unit to follow up on pt. orders to increase versed to 5mg/hr received and implemented.
[2022-11-03] MEDS: JEVITY 1.2 1000 ML LIQUID GT PRN (09:18)
--- NOTE | 2022-11-03 09:20 | NUR ---
Pulmonary services, Dr. Howe in the unit to follow up on pt. report given, orders to continue with care plan received.
--- NOTE | 2022-11-03 13:30 | NUR ---
Pt's mom at bedside.
--- NOTE | 2022-11-03 14:13 | NUR ---
A call from Neurologist orders to start going down on versed once patient is on the loading dose of Luminal.
[2022-11-03] MEDS: MIDAZOLAM HCL 50 MG in IV NORMAL SALINE 40 ML IV PRN (14:19)
[2022-11-03] MEDS ORDERED: PHENOBARBITAL SODIUM IV ONE (15:00)
[2022-11-03] MEDS ORDERED: NORMAL SALINE IV ONE (15:00)
--- NOTE | 2022-11-03 18:09 | NUR ---
Endorse pt. on NSR sbp within desired limits no need of vasopressors. Neuro-kelly garret with tactile stimuli, and remains with mouth twitching no major seizure activity noted. On ventilator Shiley 8, A/C 15, Tv450, FIO2 40% Peep +5. no respiratory distress, afebrile. ML LUE patent. G_T Jevity running at goal therapy, no residuals during shift. No BM. IV JERE patent. Over all skin C.D.I.
[2022-11-03] MEDS: PHENOBARBITAL SODIUM IV SCH (20:28)
[2022-11-03] MEDS: NORMAL SALINE IV SCH (20:28)
[2022-11-03] MEDS ORDERED: PHENOBARBITAL SODIUM 130 MG/1 ML DISP.SYRIN IV SCH (21:00)
[2022-11-04] VITALS (38 sets, daily range): BP systolic 86–121; BP diastolic 41–83
[2022-11-04] MEDS: CEFEPIME HCL 2 G in IV DEXTROSE 5% 100 ML IV SCH ×3 (00:11→16:55)
--- NOTE | 2022-11-04 07:00 | NUR ---
Received pt. on teletypesetter monitor NSR. sbp within desired limits no vasopressor support. On mechanical ventilator shiley 8 at this time pt. saturation ranging between 84-88%. endorsing R.N. at bedside providing pulmonary toileting and providing oxygenation up to 100%. saturation improved for a couple of minutes and pt. saturation drop to the low 90's. RT called. Patient repositioned back to right side, lavage provided by RT. and FIO2 increased to 50%. with saturation improving to mid-90's. Patient received on Versed running at 1mg/hr,. Neuro-kelly patient's eyes noted to be twitching from side to side, lips also noted with continuous twitching. As reported patient just started to have twitching and rapid eye movement with the episode of desaturation. Will follow up notifying attending. G-T turn off at this time will resume as ordered.
--- NOTE | 2022-11-04 07:01 | NUR ---
END OF SHIFT SUMMARY 1899: I recieved report from day shift RN. Pt is lying in bed resting comfortably. Temperature is 97.2. Twitching noted on patient's lips but no grand mal siezure activity noted. 20:00 No siezure activity noted. 00:00 pt is resting comfortably. 04:00: patient is resting comfortably, full bedbath with linen changed. Overall:Pt had two witness seizures throughout the night. Both siezures lasted only a few seconds Report endorsed to day sift RN. Pt's oxygenation in the 80's. Pt was suctioned, repositioned and RT called to make changes to the ventilator. Report endorsed to Day shift RN.
[2022-11-04] MEDS ORDERED: PANTOPRAZOLE ORAL SUSPENSION 40 MG SUSPDR.PKT ONE (07:48)
[2022-11-04] MEDS ORDERED: MIDODRINE HCL 5 MG TABLET ONE (07:48)
--- NOTE | 2022-11-04 08:15 | NUR ---
Call back from Attending Ernestine Luna with orders to increase sedation as needed.
[2022-11-04] MEDS: PHENYTOIN 100 MG/4 ML UDC GT SCH ×2 (08:21→20:31)
[2022-11-04] MEDS: levETIRAcetam 500 MG/5 ML LIQUID UDC GT SCH ×2 (08:25→20:30)
[2022-11-04] MEDS: LACOSAMIDE 100 MG/10 ML UDC GT SCH ×2 (08:29→20:42)
[2022-11-04] MEDS: PANTOPRAZOLE ORAL SUSPENSION 40 MG SUSPDR.PKT GT SCH (08:29)
[2022-11-04] MEDS: MIDODRINE HCL 5 MG TABLET GT SCH ×2 (08:29→20:42)
[2022-11-04] MEDS: PHENOBARBITAL SODIUM IV SCH (08:36)
[2022-11-04] MEDS: NORMAL SALINE IV SCH (08:36)
[2022-11-04] MEDS ORDERED: HEPARIN SODIUM,PORCINE 5,000 UNITS/ML VIAL ONE (08:38)
[2022-11-04] MEDS: HEPARIN SODIUM,PORCINE 5,000 UNITS/ML VIAL SQ SCH ×2 (08:40→20:44)
[2022-11-04 08:54] LABS: ABG HCO3 24.9 mmol/L; ABG PCO2 37.4 mmHg (35.0-45.0); ABG PH 7.442 (7.350-7.450); ABG PO2 90.7 mmHg (75.0-100.0); ABG SITE RIGHT RADIAL; ABG TOTAL HEMOGLOBIN 12.9 G/dL (13.5-18.0); COHb 0.8 % (0.5-1.5); MetHb 0.2 % (0.0-1.5); O2Hb 96.4 % (94.0-97.0); VENT MODE VENT - A/C; VT, ABG 450 mL
--- NOTE | 2022-11-04 10:30 | NUR ---
Saturation drop to 40%. Pt's saturation above 94%.
--- NOTE | 2022-11-04 10:31 | NUR ---
A call fro Neurologist telephone report given orders to titrate up sedation to pt's comfort.
--- NOTE | 2022-11-04 10:31 | NUR ---
Pulmonary services, Dr. Junior in the unit to follow up on pt. report given, orders to continue with care plan received.
[2022-11-04] MEDS: MIDAZOLAM HCL 50 MG in IV NORMAL SALINE 40 ML IV PRN (12:49)
[2022-11-04] MEDS: JEVITY 1.2 1000 ML LIQUID GT PRN (13:54)
[2022-11-04] MEDS ORDERED: ALBUTEROL SULFATE 1.25 MG/3 ML NEBU ONE (14:00)
[2022-11-04] MEDS ORDERED: IPRATROPIUM BROMIDE 0.5 MG/2.5 ML NEBU ONE (14:00)
[2022-11-04] MEDS ORDERED: ACETYLCYSTEINE 10% 4ML VIAL ONE (14:00)
[2022-11-04] MEDS: IPRATROPIUM BROMIDE 0.5 MG/2.5 ML NEBU NEB SCH ×2 (14:07→18:29)
[2022-11-04] MEDS: ACETYLCYSTEINE 10% 4ML VIAL NEB SCH ×2 (14:07→18:29)
[2022-11-04] MEDS: ALBUTEROL SULFATE 1.25 MG/3 ML NEBU NEB SCH ×2 (14:07→18:29)
--- NOTE | 2022-11-04 16:39 | NUR ---
FIO2 down to 30%.
--- NOTE | 2022-11-04 17:37 | NUR ---
A call from Neurologist orders to increase phenobarbital to 60mg Q12H IV and check dilantin and phenobarbital in Am.
--- NOTE | 2022-11-04 19:30 | NUR ---
Pt. endorsed by day shift nurse Shannan WALTON. Pt. received in bed supine. media monitor intact depicting SR no ectopy at this time. Skin warm dry to touch. Pt. maintained on vent. AC 15 30% Vt 450 +5. Complete initial assessment rendered see nursing flowsheet. Pt. monitored for acute distress, seizure activity, s/s of pain , VS, and overall change in condition.
[2022-11-04] MEDS: BISACODYL 10 MG SUPP.RECT RC ONE (20:00)
[2022-11-04] MEDS: PHENOBARBITAL SODIUM 130 MG/1 ML DISP.SYRIN IV SCH (20:43)
[2022-11-05] VITALS (47 sets, daily range): BP systolic 95–134; BP diastolic 42–89
[2022-11-05] MEDS: CEFEPIME HCL 2 G in IV DEXTROSE 5% 100 ML IV SCH ×3 (01:19→17:11)
[2022-11-05] MEDS ORDERED: BISACODYL 10 MG SUPP.RECT RC ONE (02:11)
[2022-11-05] MEDS: IPRATROPIUM BROMIDE 0.5 MG/2.5 ML NEBU NEB SCH ×4 (02:21→19:30)
[2022-11-05] MEDS: ACETYLCYSTEINE 10% 4ML VIAL NEB SCH ×4 (02:21→19:30)
[2022-11-05] MEDS: ALBUTEROL SULFATE 1.25 MG/3 ML NEBU NEB SCH ×4 (02:22→19:30)
[2022-11-05] MEDS: MIDAZOLAM HCL 50 MG in IV NORMAL SALINE 40 ML IV PRN ×2 (04:52→15:24)
[2022-11-05 05:10] LABS: PHENYTOIN (DILANTIN) 29.9 ug/mL (10.0-20.0)
[2022-11-05] MEDS ORDERED: FLEET ENEMA 133 ML BOTTLE RC ONE (05:30)
--- NOTE | 2022-11-05 05:30 | NUR ---
Mar Garcia mother of pt. called to give update of pt. BM. Mother aware and verbalized satisfaction of results after enema ordered. Dr. Barton made aware of dilantin levels and ordered enema previously spoke of.
--- NOTE | 2022-11-05 07:21 | NUR ---
Verbal bedside report endorsed to Shannan Arnett. VSS . Pt injury free and appears comfortable. No seizure activity noted this shift.
--- NOTE | 2022-11-05 07:48 | NUR ---
Received pt. on NSR.sbp within desired limits. Neuro-kelly patient remains on versed drip no major seizure activity noted. Pt's lips and eyes remains with small twitching activity. On ventilator shiley 8 A/C 15, Tv 450, FIo 30% saturation above 95%. Morning oral care rendered by RT pt. tolerating well at this time repositioned and suctioned. Bilateral heels with non-blanchable redness. LLe with scant abrasion. Area offloading pressure, will continue to monitor. IV. line patent. G-T feeding turn off at this time will resume and continue with care plan.
--- NOTE | 2022-11-05 08:15 | NUR ---
Neurologist Dr. Parra called to be informed of phenytoin and phenobarbital level this morning, orders to hold phenytoin dose today and decrease the dose to 150mg Q12H.
[2022-11-05] MEDS: PANTOPRAZOLE ORAL SUSPENSION 40 MG SUSPDR.PKT GT SCH (08:47)
[2022-11-05] MEDS: MIDODRINE HCL 5 MG TABLET GT SCH ×2 (08:47→20:59)
[2022-11-05] MEDS: PHENOBARBITAL SODIUM 130 MG/1 ML DISP.SYRIN IV SCH ×2 (08:48→20:59)
[2022-11-05] MEDS: LACOSAMIDE 100 MG/10 ML UDC GT SCH ×2 (08:48→20:57)
[2022-11-05] MEDS: HEPARIN SODIUM,PORCINE 5,000 UNITS/ML VIAL SQ SCH ×2 (08:51→21:00)
[2022-11-05] MEDS: levETIRAcetam 500 MG/5 ML LIQUID UDC GT SCH ×2 (09:06→20:57)
--- NOTE | 2022-11-05 09:20 | NUR ---
Pulmonary services, Dr. Griffith in the unit to examine pt. report given, orders to continue with care plan received.
--- NOTE | 2022-11-05 09:48 | NUR ---
Attending Ernestine Ray in the unit to follow up on pt. report given, orders to continue with care plan.
--- NOTE | 2022-11-05 12:35 | NUR ---
Neuro DNP in the unit to follow up on pt. report given orders to continue with care plan received.
--- NOTE | 2022-11-05 14:08 | NUR ---
Attending notified that pt. has not voided and bladder was scan with 415cc reading obtained, procedure done twice.
--- NOTE | 2022-11-05 14:50 | NUR ---
Orders to insert a luu received.
--- NOTE | 2022-11-05 15:17 | NUR ---
Rosen inserted as ordered a total of 800 ml's of giorgio, strongly smelling output obtained.
[2022-11-05] MEDS: JEVITY 1.2 1000 ML LIQUID GT PRN ×2 (19:01→19:57)
--- NOTE | 2022-11-05 19:06 | NUR ---
Endorse care to incoming R.N,. patient left resting comfortable. vent with no changes. neuro-kelly unchanged. Iv line patent no new skin breakdown.
--- NOTE | 2022-11-05 19:30 | NUR ---
Pt. was verbally endorsed at bedside by Shannan WALTON. Pt. awake in bed, supine. pet groomer intact depicting SR. with no ectopic beats at present assessment. Pt/ maintained on Vent. AC 15 30% Vt450 + 5 Sp02 ranging 94 -96% Skin warm and dry to touch. Color WNL . Complete neuro assessment completed. Pt. noted with facial twitching. Pt. opens eyes spontaneously. Makes no eye contact. Follows no commands. Upper and lower limbs bilat. are rigid. Complete initial assessment details in nursing flowsheet. Pt. continues on Versed gtts. received running at 4.5 mg/hr. Pt. appears comfortable at this time . Monitored for seizure activity, s/s pain, and overall acute change in condition.
[2022-11-06] VITALS (48 sets, daily range): BP systolic 69–118; BP diastolic 49–78
--- NOTE | 2022-11-06 00:40 | NUR ---
Pt. with no acute change in condotion. No seizure activity noted. DIRECTOR OF PHYSIOTHERAPY SERVICES in for routine tx. Gag reflex strong and cough strong during suctioning. Pt. body becomes rigid during suctioning and total body shaking upon suction stimulation. Does not appear to be seizure activity. Movement subsides when noxious stimulus ceases. Monitored for distress.
[2022-11-06] MEDS: CEFEPIME HCL 2 G in IV DEXTROSE 5% 100 ML IV SCH ×3 (00:46→16:34)
[2022-11-06] MEDS: MIDAZOLAM HCL 50 MG in IV NORMAL SALINE 40 ML IV PRN ×2 (01:04→16:31)
[2022-11-06] MEDS: ALBUTEROL SULFATE 1.25 MG/3 ML NEBU NEB SCH ×4 (01:08→19:35)
[2022-11-06] MEDS: IPRATROPIUM BROMIDE 0.5 MG/2.5 ML NEBU NEB SCH ×4 (01:08→19:35)
[2022-11-06] MEDS: ACETYLCYSTEINE 10% 4ML VIAL NEB SCH ×4 (01:08→19:36)
[2022-11-06 04:54] LABS: HEMATOCRIT 34.3 % (36.7-47.1); MEAN CORPUSCULAR HEMOGLOBIN 31.1 uug (23.8-33.4); MEAN CORPUSCULAR VOLUME 93.8 fL (73.0-96.2); PLATELET COUNT (AUTO) 172 K/uL (152-348)
[2022-11-06 05:10] LABS: CARBON DIOXIDE 26 mmol/L (21-32); CHLORIDE 102 mmol/L (98-107); CREATININE 0.6 mg/dL (0.6-1.3); GLUCOSE 118 mg/dL (74-106); MAGNESIUM 1.6 mg/dL (1.8-2.4); PHOSPHOROUS 3.5 mg/dL (2.5-4.9); POTASSIUM 3.5 mmol/L (3.5-5.1); UREA NITROGEN, BLOOD 13 mg/dL (7-18)
[2022-11-06] MEDS: MAGNESIUM HYDROXIDE 30 ML LIQUID UDC PO PRN (05:44)
[2022-11-06 06:13] LABS: ABG BASE EXCESS -0.9 mmol/L; ABG HCO3 24.1 mmol/L; ABG PCO2 41.3 mmHg (35.0-45.0); ABG PH 7.384 (7.350-7.450); ABG PO2 90.6 mmHg (75.0-100.0); ABG SITE RIGHT RADIAL; ABG TOTAL HEMOGLOBIN 12.8 G/dL (13.5-18.0); COHb 0.9 % (0.5-1.5); MetHb 0.3 % (0.0-1.5); O2Hb 95.7 % (94.0-97.0); VENT MODE VENT - A/C; VT, ABG 450 mL
--- NOTE | 2022-11-06 06:32 | NUR ---
Pt. has been neurologically unchanged this shift. Noted rigidity of limbs and quivering when repositioned or manually stimulated. Shaking/quivering subsides when stimulus ceases. Makes no eye contact nor follows commands. Pt. slept intermittently throughout the night. Body alignment maintained. Heels off loaded bilat. and redness has improved. Pt. has continued on versed gtts. at 4.5mg/hr. Vent. settings unchanged. No BM this shift. MOM given . Awaiting dispostion with reference to transfer to [facility].
--- NOTE | 2022-11-06 07:00 | NUR ---
Received pt. resting comfortable, neuro-kelly remains with decrease lip twitching. contracts with touching. On ventilator with no changes, saturation above 94%. Oral care rendered. Pt. afebrile. On steel layout worker NSR with SBP within desired limits. IV line patent feeding off at this time will resume as ordered.
--- NOTE | 2022-11-06 07:21 | NUR ---
Endorsed injury free to oncoming day ANTON Campbell. VSS and in no acute distress. Remains sedated on Versed .Injury free, bed brakes on, 2 siderails up. Vent. settings unchanged.
[2022-11-06] MEDS ORDERED: POTASSIUM CHLORIDE 20 MEQ POWDER PACKET GT ONE (08:00)
[2022-11-06] MEDS: PHENYTOIN 100 MG/4 ML UDC GT SCH ×2 (08:00→20:12)
[2022-11-06] MEDS ORDERED: FUROSEMIDE 20 MG/2 ML VIAL IV ONE (08:00)
--- NOTE | 2022-11-06 08:00 | NUR ---
Cardiac services. Dr. Garner in the unit to follow up on pt report given see order hx.
[2022-11-06] MEDS: levETIRAcetam 500 MG/5 ML LIQUID UDC GT SCH ×2 (08:01→20:13)
[2022-11-06] MEDS: MIDODRINE HCL 5 MG TABLET GT SCH ×2 (08:02→20:10)
[2022-11-06] MEDS: PANTOPRAZOLE ORAL SUSPENSION 40 MG SUSPDR.PKT GT SCH (08:02)
[2022-11-06] MEDS: PHENOBARBITAL SODIUM 130 MG/1 ML DISP.SYRIN IV SCH ×2 (08:02→20:10)
[2022-11-06] MEDS: HEPARIN SODIUM,PORCINE 5,000 UNITS/ML VIAL SQ SCH ×2 (08:04→20:14)
[2022-11-06] MEDS: MAGNESIUM SULFATE/D5W 100 ML IV SCH ×2 (08:20→09:13)
[2022-11-06] MEDS: LACOSAMIDE 100 MG/10 ML UDC GT SCH ×2 (08:45→20:11)
--- NOTE | 2022-11-06 09:19 | NUR ---
Pulmonary services,m Dr. Griffith in to examine pt. report given, with orders to continue with care plan received.
--- NOTE | 2022-11-06 11:13 | NUR ---
Teresita Babcock from neurology services, in to examine pt. report given, orders to continue with care plan.
--- NOTE | 2022-11-06 13:01 | NUR ---
Attending physician Kristel Maradiaga in the unit to examine pt. report given orders to continue with care plan received.
[2022-11-07] VITALS (41 sets, daily range): BP systolic 91–111; BP diastolic 49–73
[2022-11-07] MEDS: CEFEPIME HCL 2 G in IV DEXTROSE 5% 100 ML IV SCH ×2 (01:11→08:02)
[2022-11-07] MEDS: ACETYLCYSTEINE 10% 4ML VIAL NEB SCH ×2 (01:19→07:15)
[2022-11-07] MEDS: ALBUTEROL SULFATE 1.25 MG/3 ML NEBU NEB SCH ×2 (01:19→07:15)
[2022-11-07] MEDS: IPRATROPIUM BROMIDE 0.5 MG/2.5 ML NEBU NEB SCH ×2 (01:19→07:15)
[2022-11-07] MEDS: JEVITY 1.2 1000 ML LIQUID GT PRN (03:59)
[2022-11-07] MEDS: MIDAZOLAM HCL 50 MG in IV NORMAL SALINE 40 ML IV PRN ×2 (05:01→23:11)
[2022-11-07 05:02] LABS: MEAN CORPUSCULAR VOLUME 93.9 fL (73.0-96.2); PLATELET COUNT (AUTO) 196 K/uL (152-348)
[2022-11-07 05:22] LABS: ALANINE AMINOTRANSFERASE 63 U/L (16-63); ALKALINE PHOSPHATASE 173 U/L (50-136); ASPARTATE AMINOTRANSFERASE 26 U/L (15-37); BILIRUBIN,TOTAL 0.4 mg/dL (0.2-1.0); CARBON DIOXIDE 28 mmol/L (21-32); CHLORIDE 102 mmol/L (98-107); CREATININE 0.7 mg/dL (0.6-1.3); GLUCOSE 104 mg/dL (74-106); POTASSIUM 3.9 mmol/L (3.5-5.1); TOTAL PROTEIN, SERUM 8.5 g/dL (6.4-8.2); UREA NITROGEN, BLOOD 11 mg/dL (7-18)
[2022-11-07] MEDS: MAGNESIUM HYDROXIDE 30 ML LIQUID UDC PO PRN (05:30)
--- NOTE | 2022-11-07 06:59 | NUR ---
Left pt. resting comfortable, no seizure activity remains with slight twitching on lips. Remains on versed running at 4.5mg/hr. On mechanical ventilator A/C15, Tv450, FIo2 40%. no desaturation. On sinus rhythm sbp within desired limits no need of vasopressors. IV line patent. G-t feeding to be resume as ordered. No residuals for the shift. Rosen to gravity. Will continue with care plan.
[2022-11-07] MEDS: PHENYTOIN 100 MG/4 ML UDC GT SCH ×2 (07:59→21:15)
[2022-11-07] MEDS: PANTOPRAZOLE ORAL SUSPENSION 40 MG SUSPDR.PKT GT SCH (08:01)
[2022-11-07] MEDS: MIDODRINE HCL 5 MG TABLET GT SCH ×2 (08:01→21:26)
[2022-11-07] MEDS: levETIRAcetam 500 MG/5 ML LIQUID UDC GT SCH ×2 (08:01→21:16)
[2022-11-07] MEDS: LACOSAMIDE 100 MG/10 ML UDC GT SCH ×2 (08:02→21:25)
[2022-11-07] MEDS: HEPARIN SODIUM,PORCINE 5,000 UNITS/ML VIAL SQ SCH ×2 (08:03→21:27)
[2022-11-07] MEDS: PHENOBARBITAL SODIUM 130 MG/1 ML DISP.SYRIN IV SCH (08:56)
[2022-11-07] MEDS ORDERED: PHENOBARBITAL SODIUM 130 MG/1 ML DISP.SYRIN IV ONE (12:30)
[2022-11-07] MEDS ORDERED: IV NORMAL SALINE 250 ML IV PRN (19:00)
[2022-11-07] MEDS: PHENOBARBITAL 32.4 MG TABLET GT SCH (21:26)
[2022-11-08] VITALS (33 sets, daily range): BP systolic 93–123; BP diastolic 50–84
[2022-11-08] MEDS: PHENYTOIN 100 MG/4 ML UDC GT SCH ×2 (08:37→20:58)
[2022-11-08] MEDS: PHENOBARBITAL 32.4 MG TABLET GT SCH ×2 (08:41→20:53)
[2022-11-08] MEDS: levETIRAcetam 500 MG/5 ML LIQUID UDC GT SCH ×2 (08:41→20:57)
[2022-11-08] MEDS: PANTOPRAZOLE ORAL SUSPENSION 40 MG SUSPDR.PKT GT SCH (08:43)
[2022-11-08] MEDS: LACOSAMIDE 100 MG/10 ML UDC GT SCH ×2 (08:43→20:53)
[2022-11-08] MEDS: MIDODRINE HCL 5 MG TABLET GT SCH ×2 (08:44→20:52)
[2022-11-08] MEDS: HEPARIN SODIUM,PORCINE 5,000 UNITS/ML VIAL SQ SCH ×2 (08:47→21:10)
[2022-11-08] MEDS: MIDAZOLAM HCL 50 MG in IV NORMAL SALINE 40 ML IV PRN (11:32)
--- NOTE | 2022-11-08 18:50 | NUR ---
Report given to Annamaria WALTON at [facility]. Was transferred to speciality unit by transfer center coordinator to give report. once discharge summary is done by primary Dr. Mejía please fax entire chart to [facility] transfer center at [phone]. Can call to confirm it was received at [phone] option 3.
--- NOTE | 2022-11-08 19:33 | NUR ---
Spoke to Lyssa the unit coordinator called back with room [id number] Wilson. May call for any other updates to the unit [phone].
--- NOTE | 2022-11-08 22:00 | NUR ---
[facility] departed with patient.
== END 2022-11-08 22:00 | disposition short-term general hospital (02) | DRG 56 ==
LOC: ER 17:08 → CCU 21:00 → TRANSITION 11-04 12:18 → CCU 11-04 18:30
PROVIDERS: ADMIT Nurse Practitioner Acute Care; ATTEND Nurse Practitioner Acute Care
PROC: 5A1955Z Respiratory Ventilation, Greater than 96 Consecutive Hours (ICD-10-PCS; principal; 2022-10-26)
PROC: 05HC33Z Insertion of Infusion Device into Left Basilic Vein, Percutaneous Approach (ICD-10-PCS; 2022-10-27)
DX: I69.298 Other sequelae of other nontraumatic intracranial hemorrhage (principal); G40.901 Epilepsy, unspecified, not intractable, with status epilepticus; G93.41 Metabolic encephalopathy; J15.6 Pneumonia due to other Gram-negative bacteria; J69.0 Pneumonitis due to inhalation of food and vomit; J96.21 Acute and chronic respiratory failure with hypoxia; D68.59 Other primary thrombophilia; G93.1 Anoxic brain damage, not elsewhere classified; Z99.11 Dependence on respirator [ventilator] status; E23.2 Diabetes insipidus; J98.11 Atelectasis; R57.9 Shock, unspecified; G93.49 Other encephalopathy; I69.291 Dysphagia following other nontraumatic intracranial hemorrhage; R13.10 Dysphagia, unspecified; Z87.440 Personal history of urinary (tract) infections; Z93.0 Tracheostomy status; Z93.1 Gastrostomy status; Z74.01 Bed confinement status; N31.9 Neuromuscular dysfunction of bladder, unspecified; Z93.6 Other artificial openings of urinary tract status; K76.0 Fatty (change of) liver, not elsewhere classified; I44.0 Atrioventricular block, first degree; R00.1 Bradycardia, unspecified; Z79.899 Other long term (current) drug therapy; E78.5 Hyperlipidemia, unspecified; G93.89 Other specified disorders of brain; Z20.822 Contact with and (suspected) exposure to COVID-19; D64.9 Anemia, unspecified; Z98.890 Other specified postprocedural states; I51.7 Cardiomegaly
CPT/HCPCS: 36415; 36600; 70450; 71045; 80184; 82803; 83735; 84100; 84484; 85025; 85730; 86140; 93005; 93307; 94002; 94003; 94640; 94664; 94760; 95819; 99082-TC; A4663; C1758; C9113; G0378; J0692; J1165; J1644; J1940; J1953; J2060; J2250; J2405; J2560; J3475; J3590; J7040; U0003

== ENCOUNTER 2022-11-13 15:36 | Inpatient (IN) | payer OTHER ==
[~2022-11-13] VITALS: Ht 170.2 cm; Wt 82.6 kg
[2022-11-13] VITALS (9 sets, daily range): BP systolic 92–112; BP diastolic 55–72
[2022-11-13] MEDS ORDERED: insulin (16:17)
[2022-11-13] MEDS ORDERED: clobazam GT (16:17)
[2022-11-13] MEDS ORDERED: labetalol IVP (16:17)
[2022-11-13] MEDS ORDERED: protonix GT (16:17)
[2022-11-13] MEDS ORDERED: levetiracetam IV (16:17)
[2022-11-13] MEDS ORDERED: heparin SUBCUT (16:17)
[2022-11-13] MEDS ORDERED: LACOSAMIDE IV (16:17)
[2022-11-13] MEDS ORDERED: docusate GT (16:17)
[2022-11-13] MEDS ORDERED: MEROPENEM IV (16:17)
[2022-11-13] MEDS ORDERED: hydralazine IVP (16:17)
[2022-11-13] MEDS ORDERED: BISACODYL PR (16:17)
[2022-11-13] MEDS ORDERED: DOCU100T2 PO (17:14)
[2022-11-13] MEDS ORDERED: INSU100V28 (17:18)
[2022-11-13] MEDS ORDERED: MAGN400O6 GT (17:23)
[2022-11-13] MEDS ORDERED: ONDA4TAB11 IVP (17:26)
[2022-11-13] MEDS ORDERED: ONDA4VIA23 IVP (17:27)
[2022-11-13] MEDS ORDERED: REMEDY ESSENTIAL ZINC PASTE 113 GM TP PRN (17:30)
[2022-11-13] MEDS ORDERED: IV NS 1000 ML 1,000 ML IV PRN (17:30)
[2022-11-13] MEDS ORDERED: ACETAMINOPHEN 325 MG TABLET GT PRN (17:30)
[2022-11-13] MEDS ORDERED: ONDANSETRON 4 MG/2 ML VIAL IV PRN (17:30)
[2022-11-13 17:58] LABS: HEMATOCRIT 28.3 % (36.7-47.1); MEAN CORPUSCULAR HEMOGLOBIN 32.4 uug (23.8-33.4); MEAN CORPUSCULAR VOLUME 95.1 fL (73.0-96.2); PLATELET COUNT (AUTO) 263 K/uL (152-348)
[2022-11-13] MEDS ORDERED: NOREPINEPHRINE BITARTRATE 32 MG in IV NORMAL SALINE 218 ML IV PRN (18:15)
[2022-11-13 18:18] LABS: ALANINE AMINOTRANSFERASE 83 U/L (16-63); ALKALINE PHOSPHATASE 144 U/L (50-136); ASPARTATE AMINOTRANSFERASE 39 U/L (15-37); BILIRUBIN,TOTAL 0.1 mg/dL (0.2-1.0); CARBON DIOXIDE 26 mmol/L (21-32); CHLORIDE 109 mmol/L (98-107); CREATININE 0.6 mg/dL (0.6-1.3); GLUCOSE 77 mg/dL (74-106); PHOSPHOROUS 2.8 mg/dL (2.5-4.9); POTASSIUM 3.7 mmol/L (3.5-5.1); UREA NITROGEN, BLOOD 8 mg/dL (7-18)
[2022-11-13] MEDS ORDERED: LACOSAMIDE IV SCH (18:30)
[2022-11-13] MEDS ORDERED: NORMAL SALINE IV SCH (18:30)
[2022-11-13] MEDS ORDERED: LACOSAMIDE 200 MG in IV NORMAL SALINE 100 ML IV ONE (19:00)
[2022-11-13] MEDS: levETIRAcetam 500 MG/5 ML LIQUID UDC GT SCH ×2 (19:07→20:56)
[2022-11-13] MEDS: MEROPENEM 1 G in IV NORMAL SALINE 100 ML IV SCH (19:08)
[2022-11-13] MEDS ORDERED: HEPARIN SODIUM,PORCINE 5,000 UNITS/ML VIAL ONE (21:00)
[2022-11-13] MEDS: HEPARIN SODIUM,PORCINE 5,000 UNITS/ML VIAL SQ SCH (21:04)
[2022-11-14] VITALS (24 sets, daily range): BP systolic 94–125; BP diastolic 52–81
[2022-11-14] MEDS: MEROPENEM 1 G in IV NORMAL SALINE 100 ML IV SCH ×4 (01:27→17:29)
[2022-11-14 05:15] LABS: HEMATOCRIT 29.2 % (36.7-47.1); MEAN CORPUSCULAR HEMOGLOBIN 32.3 uug (23.8-33.4); MEAN CORPUSCULAR VOLUME 94.5 fL (73.0-96.2); PLATELET COUNT (AUTO) 257 K/uL (152-348)
[2022-11-14 05:28] LABS: CARBON DIOXIDE 26 mmol/L (21-32); CHLORIDE 107 mmol/L (98-107); CREATININE 0.6 mg/dL (0.6-1.3); GLUCOSE 77 mg/dL (74-106); MAGNESIUM 1.8 mg/dL (1.8-2.4); PHOSPHOROUS 2.9 mg/dL (2.5-4.9); UREA NITROGEN, BLOOD 9 mg/dL (7-18)
[2022-11-14] MEDS ORDERED: PANTOPRAZOLE ORAL SUSPENSION 40 MG SUSPDR.PKT ONE (09:34)
[2022-11-14] MEDS ORDERED: HEPARIN SODIUM,PORCINE 5,000 UNITS/ML VIAL ONE ×2 (09:35→20:18)
[2022-11-14] MEDS ORDERED: LACOSAMIDE 100 MG/10 ML UDC ONE ×2 (09:35→20:17)
[2022-11-14] MEDS: levETIRAcetam 500 MG/5 ML LIQUID UDC GT SCH ×2 (09:37→20:56)
[2022-11-14] MEDS: LACOSAMIDE 100 MG/10 ML UDC GT SCH ×2 (09:38→20:56)
[2022-11-14] MEDS ORDERED: PANTOPRAZOLE SODIUM 40 MG VIAL ONE (09:39)
[2022-11-14] MEDS: PANTOPRAZOLE SODIUM 40 MG VIAL IV SCH (09:41)
[2022-11-14] MEDS: HEPARIN SODIUM,PORCINE 5,000 UNITS/ML VIAL SQ SCH ×2 (09:42→21:09)
[2022-11-14] MEDS ORDERED: JEVITY 1.2 1000 ML LIQUID GT PRN (10:30)
[2022-11-14] MEDS ORDERED: MEROPENEM 1GM/NS 100ML IVPB **ER PYXIS ONLY IV ONE ×2 (17:29→20:18)
[2022-11-15] VITALS (25 sets, daily range): BP systolic 92–118; BP diastolic 55–81
[2022-11-15] MEDS: MEROPENEM 1 G in IV NORMAL SALINE 100 ML IV SCH ×3 (02:16→17:00)
[2022-11-15] MEDS ORDERED: PANTOPRAZOLE SODIUM 40 MG VIAL ONE (08:01)
[2022-11-15] MEDS ORDERED: LACOSAMIDE 100 MG/10 ML UDC ONE (08:01)
[2022-11-15] MEDS ORDERED: HEPARIN SODIUM,PORCINE 5,000 UNITS/ML VIAL ONE (08:02)
[2022-11-15] MEDS: LACOSAMIDE 100 MG/10 ML UDC GT SCH ×2 (08:05→20:45)
[2022-11-15] MEDS: PANTOPRAZOLE SODIUM 40 MG VIAL IV SCH (08:07)
[2022-11-15] MEDS: HEPARIN SODIUM,PORCINE 5,000 UNITS/ML VIAL SQ SCH ×2 (08:07→20:45)
[2022-11-15] MEDS: levETIRAcetam 500 MG/5 ML LIQUID UDC GT SCH ×2 (08:07→20:35)
[2022-11-15] MEDS ORDERED: MEROPENEM 1GM/NS 100ML IVPB **ER PYXIS ONLY IV ONE ×2 (09:28→16:59)
[2022-11-16] VITALS (17 sets, daily range): BP systolic 108–132; BP diastolic 60–99
[2022-11-16] MEDS: MEROPENEM 1 G in IV NORMAL SALINE 100 ML IV SCH ×2 (01:39→09:26)
[2022-11-16] MEDS ORDERED: levETIRAcetam 500 MG/5 ML LIQUID UDC ONE (09:22)
[2022-11-16] MEDS ORDERED: PANTOPRAZOLE SODIUM 40 MG VIAL ONE (09:22)
[2022-11-16] MEDS ORDERED: LACOSAMIDE 100 MG/10 ML UDC ONE (09:23)
[2022-11-16] MEDS ORDERED: MEROPENEM 1GM/NS 100ML IVPB **ER PYXIS ONLY IV ONE (09:23)
[2022-11-16] MEDS ORDERED: HEPARIN SODIUM,PORCINE 5,000 UNITS/ML VIAL ONE (09:23)
[2022-11-16] MEDS: LACOSAMIDE 100 MG/10 ML UDC GT SCH (09:25)
[2022-11-16] MEDS: PANTOPRAZOLE SODIUM 40 MG VIAL IV SCH (09:25)
[2022-11-16] MEDS: levETIRAcetam 500 MG/5 ML LIQUID UDC GT SCH (09:26)
[2022-11-16] MEDS: HEPARIN SODIUM,PORCINE 5,000 UNITS/ML VIAL SQ SCH (09:28)
[2022-11-16] MEDS ORDERED: levETIRAcetam 500 MG/5 ML LIQUID UDC GT SCH (21:00)
[2022-11-17] MEDS ORDERED: PANTOPRAZOLE ORAL SUSPENSION 40 MG SUSPDR.PKT GT SCH (06:00)
== END 2022-11-16 16:00 | DRG 208 ==
LOC: TRANSITION 15:36
PROC: 5A1945Z Respiratory Ventilation, 24-96 Consecutive Hours (ICD-10-PCS; principal; 2022-11-13)
DX: J69.0 Pneumonitis due to inhalation of food and vomit (principal); J96.21 Acute and chronic respiratory failure with hypoxia; R53.2 Functional quadriplegia; G93.1 Anoxic brain damage, not elsewhere classified; Z99.11 Dependence on respirator [ventilator] status; E23.2 Diabetes insipidus; D68.59 Other primary thrombophilia; G51.4 Facial myokymia; G40.909 Epilepsy, unspecified, not intractable, without status epilepticus; I69.298 Other sequelae of other nontraumatic intracranial hemorrhage; Z93.0 Tracheostomy status; Z93.1 Gastrostomy status; M24.572 Contracture, left ankle; M24.571 Contracture, right ankle; R13.10 Dysphagia, unspecified; N31.9 Neuromuscular dysfunction of bladder, unspecified; Z87.440 Personal history of urinary (tract) infections; E78.5 Hyperlipidemia, unspecified; D64.9 Anemia, unspecified; L89.516 Pressure-induced deep tissue damage of right ankle; L89.616 Pressure-induced deep tissue damage of right heel; Z79.899 Other long term (current) drug therapy; Z98.890 Other specified postprocedural states; K76.0 Fatty (change of) liver, not elsewhere classified; G93.89 Other specified disorders of brain; Z74.01 Bed confinement status
CPT/HCPCS: 36415; 71045; 83605; 83735; 84100; 85025; 94002; 94003; 94760; C9113; G0378; J1644; J2185; J3490; J7040; J7050

== ENCOUNTER 2022-11-16 09:34 | Inpatient (IN) | payer OTHER ==
[~2022-11-16] VITALS: Ht 170.2 cm; Wt 81.7 kg
[~2022-11-16 09:34] MED LIST: BISACODYL PR; DOCU100T2 PO; HEPARIN SODIUM,PORCINE 5,000 UNITS/ML VIAL ONE; INSU100V28; LACOSAMIDE 50 MG TABLET ONE; LACOSAMIDE IV; MAGN400O6 GT; MEROPENEM 1GM/NS 100ML IVPB **ER PYXIS ONLY IV ONE; MEROPENEM IV; ONDA4VIA23 IVP; clobazam GT; docusate GT; heparin SUBCUT; hydralazine IVP; labetalol IVP; levetiracetam IV; protonix GT
[2022-11-16] MEDS ORDERED: REMEDY ESSENTIAL ZINC PASTE 113 GM TP PRN (16:15)
[2022-11-16] MEDS ORDERED: ACETAMINOPHEN 650 MG/20 ML UDC- SA PATIENTS-FEVER ONLY GT PRN (16:15)
[2022-11-16] MEDS ORDERED: HYDROGEN PEROXIDE 3% 118 ML BOTTLE TP PRN (18:15)
[2022-11-16] MEDS ORDERED: MEROPENEM 1 G VIAL IV ONE (18:38)
[2022-11-16] MEDS: JEVITY 1.2 1000 ML LIQUID GT PRN (19:00)
[2022-11-16] MEDS: MEROPENEM 1 G in IV NORMAL SALINE 100 ML IV SCH (19:00)
[2022-11-16 20:00] VITALS: TEMP 98
[2022-11-16] MEDS: levETIRAcetam 500 MG/5 ML LIQUID UDC GT SCH (21:00)
[2022-11-16] MEDS: NORMAL SALINE FLUSH 10 ML DISP.SYRIN IV SCH (21:00)
[2022-11-16] MEDS: HEPARIN SODIUM,PORCINE 5,000 UNITS/ML VIAL SQ SCH (21:00)
[2022-11-16] MEDS: LACOSAMIDE 100 MG/10 ML UDC GT SCH (22:00)
[2022-11-16] MEDS ORDERED: LACOSAMIDE 50 MG TABLET ONE (22:39)
[2022-11-16] MEDS: POLYVINYL ALCOHOL OPHT DROPS 15 ML BOTTLE EACHEYE SCH (23:00)
[2022-11-16] MEDS: MINERAL OIL/PETROLAT OPHT OINT 3.5 GM TUBE EACHEYE SCH (23:00)
[2022-11-16] MEDS: HYDROGEN PEROXIDE 3% 118 ML BOTTLE TP SCH (23:28)
[2022-11-17 00:18] VITALS: TEMP 98
[2022-11-17] MEDS: MEROPENEM 1 G in IV NORMAL SALINE 100 ML IV SCH ×3 (02:00→18:00)
[2022-11-17] MEDS: POLYVINYL ALCOHOL OPHT DROPS 15 ML BOTTLE EACHEYE SCH ×6 (03:00→23:02)
[2022-11-17] MEDS: ACETAMINOPHEN 650 MG/20 ML UDC- SA PATIENTS-PAIN ONLY GT PRN (03:00)
[2022-11-17] MEDS ORDERED: REMEDY ESSENTIAL ZINC PASTE 113 GM TOP SCH (03:45)
[2022-11-17] MEDS: NEOMY/BACITRAC/POLYMI OINT 28.35 GM TUBE TOP SCH ×14 (03:45→21:51)
[2022-11-17] MEDS: REMEDY ESSENTIAL ZINC PASTE 113 GM TOP SCH ×8 (03:45→21:51)
[2022-11-17 04:10] VITALS: TEMP 98
[2022-11-17] MEDS: MINERAL OIL/PETROLAT OPHT OINT 3.5 GM TUBE EACHEYE SCH ×4 (06:00→22:00)
[2022-11-17 08:00] VITALS: TEMP 97.2
[2022-11-17] MEDS: NORMAL SALINE FLUSH 10 ML DISP.SYRIN IV SCH ×2 (09:00→21:00)
[2022-11-17] MEDS: HYDROGEN PEROXIDE 3% 118 ML BOTTLE TP SCH ×2 (09:00→21:06)
[2022-11-17] MEDS: levETIRAcetam 500 MG/5 ML LIQUID UDC GT SCH ×2 (09:00→21:50)
[2022-11-17] MEDS: LACOSAMIDE 100 MG/10 ML UDC GT SCH ×2 (09:00→21:50)
[2022-11-17] MEDS: HEPARIN SODIUM,PORCINE 5,000 UNITS/ML VIAL SQ SCH ×2 (09:00→21:00)
[2022-11-17] MEDS: JEVITY 1.2 1000 ML LIQUID GT PRN (14:47)
[2022-11-17 20:51] VITALS: TEMP 98.6
[2022-11-17] MEDS: NYSTATIN CREAM 30 GM TUBE TP SCH (21:51)
[2022-11-18] MEDS: MEROPENEM 1 G in IV NORMAL SALINE 100 ML IV SCH ×2 (01:54→09:55)
[2022-11-18] MEDS: POLYVINYL ALCOHOL OPHT DROPS 15 ML BOTTLE EACHEYE SCH ×6 (02:58→22:08)
[2022-11-18] MEDS: MINERAL OIL/PETROLAT OPHT OINT 3.5 GM TUBE EACHEYE SCH ×3 (05:06→22:08)
[2022-11-18 07:30] VITALS: TEMP 99.3
[2022-11-18] MEDS: levETIRAcetam 500 MG/5 ML LIQUID UDC GT SCH ×2 (08:59→20:36)
[2022-11-18] MEDS: LACOSAMIDE 100 MG/10 ML UDC GT SCH ×2 (09:00→20:43)
[2022-11-18] MEDS: NEOMY/BACITRAC/POLYMI OINT 28.35 GM TUBE TOP SCH ×10 (09:00→20:37)
[2022-11-18] MEDS: HYDROGEN PEROXIDE 3% 118 ML BOTTLE TP SCH ×2 (09:00→23:15)
[2022-11-18] MEDS: REMEDY ESSENTIAL ZINC PASTE 113 GM TOP SCH ×6 (09:01→20:37)
[2022-11-18] MEDS: NYSTATIN CREAM 30 GM TUBE TP SCH ×2 (09:03→20:37)
[2022-11-18] MEDS: HEPARIN SODIUM,PORCINE 5,000 UNITS/ML VIAL SQ SCH ×2 (09:05→20:58)
[2022-11-18] MEDS: NORMAL SALINE FLUSH 10 ML DISP.SYRIN IV SCH ×2 (09:55→20:36)
[2022-11-18] MEDS: JEVITY 1.2 1000 ML LIQUID GT PRN (14:19)
[2022-11-18] MEDS ORDERED: JEVITY 1.2 1000 ML LIQUID GT PRN (17:05)
[2022-11-18] MEDS ORDERED: LORAZEPAM 2 MG/1 ML VIAL IM PRN (17:15)
[2022-11-18 20:16] VITALS: TEMP 98.5
[2022-11-18] MEDS: DOCUSATE SODIUM 100 MG/10 ML LIQUID UDC GT SCH (20:34)
[2022-11-19] MEDS: POLYVINYL ALCOHOL OPHT DROPS 15 ML BOTTLE EACHEYE SCH ×6 (03:12→23:00)
[2022-11-19 06:10] LABS: ABG BASE EXCESS -0.2 mmol/L; ABG HCO3 23.3 mmol/L; ABG PCO2 34.9 mmHg (35.0-45.0); ABG PH 7.443 (7.350-7.450); ABG PO2 73.3 mmHg (75.0-100.0); ABG SITE LEFT RADIAL; ABG TOTAL HEMOGLOBIN 13.9 G/dL (13.5-18.0); COHb 0.3 % (0.5-1.5); MetHb 0.4 % (0.0-1.5); O2Hb 94.2 % (94.0-97.0); VENT MODE VENT - SIMV; VT, ABG 420 mL
[2022-11-19] MEDS: MINERAL OIL/PETROLAT OPHT OINT 3.5 GM TUBE EACHEYE SCH ×3 (06:33→22:11)
[2022-11-19 06:38] LABS: BASOPHILS # (AUTO) 0.1 K/UL (0.0-0.2); BASOPHILS % (AUTO) 1.3 % (0.0-2.0); EOSINOPHILS # (AUTO) 0.2 K/uL (0.0-0.7); EOSINOPHILS % (AUTO) 2.8 % (0.0-7.0); HEMATOCRIT 37.7 % (36.7-47.1); LYMPHOCYTES # (AUTO) 2.5 K/uL (0.8-4.8); LYMPHOCYTES % (AUTO) 34.9 % (20.5-51.5); MEAN CORPUSCULAR HEMOGLOBIN 32.4 uug (23.8-33.4); MEAN CORPUSCULAR HGB CONC 34 g/dL (32.5-36.3); MEAN CORPUSCULAR VOLUME 94.3 fL (73.0-96.2); MONOCYTES # (AUTO) 0.7 K/uL (0.1-1.30); NEUTROPHILS # (AUTO) 3.7 K/uL (1.8-8.9); PLATELET COUNT (AUTO) 441 K/uL (152-348); RED CELL DISTRIBUTION WIDTH 16.5 % (12.1-16.2); WHITE BLOOD COUNT (AUTO) 7.2 K/uL (3.6-10.2)
[2022-11-19 07:07] LABS: DIFFERENTIAL COMMENT 1
[2022-11-19 07:33] LABS: ALBUMIN 3.8 g/dL (3.4-5.0); BILIRUBIN,TOTAL 0.4 mg/dL (0.2-1.0); CALCIUM 9.8 mg/dL (8.5-10.1); CREATININE 0.8 mg/dL (0.6-1.3); MAGNESIUM 2.3 mg/dL (1.8-2.4); PHOSPHOROUS 3.9 mg/dL (2.5-4.9); POTASSIUM 3.8 mmol/L (3.5-5.1); TOTAL PROTEIN, SERUM 9.2 g/dL (6.4-8.2)
[2022-11-19] MEDS: LACOSAMIDE 100 MG/10 ML UDC GT SCH ×2 (08:24→21:00)
[2022-11-19] MEDS: DOCUSATE SODIUM 100 MG/10 ML LIQUID UDC GT SCH ×2 (08:24→21:00)
[2022-11-19] MEDS: levETIRAcetam 500 MG/5 ML LIQUID UDC GT SCH ×2 (08:24→21:00)
[2022-11-19] MEDS: HEPARIN SODIUM,PORCINE 5,000 UNITS/ML VIAL SQ SCH ×2 (08:29→21:00)
[2022-11-19] MEDS: REMEDY ESSENTIAL ZINC PASTE 113 GM TOP SCH ×6 (08:29→21:00)
[2022-11-19] MEDS: NEOMY/BACITRAC/POLYMI OINT 28.35 GM TUBE TOP SCH ×10 (08:30→21:00)
[2022-11-19] MEDS: NYSTATIN CREAM 30 GM TUBE TP SCH ×2 (08:32→21:00)
[2022-11-19] MEDS: HYDROGEN PEROXIDE 3% 118 ML BOTTLE TP SCH ×2 (09:21→21:15)
[2022-11-19] MEDS: JEVITY 1.2 1000 ML LIQUID GT PRN (17:53)
[2022-11-19 20:34] VITALS: TEMP 98.7
[2022-11-20] MEDS: POLYVINYL ALCOHOL OPHT DROPS 15 ML BOTTLE EACHEYE SCH ×6 (03:00→23:00)
[2022-11-20] MEDS: MINERAL OIL/PETROLAT OPHT OINT 3.5 GM TUBE EACHEYE SCH ×3 (05:52→22:54)
[2022-11-20 08:00] VITALS: TEMP 99
[2022-11-20] MEDS: HYDROGEN PEROXIDE 3% 118 ML BOTTLE TP SCH ×2 (08:17→21:00)
[2022-11-20] MEDS: DOCUSATE SODIUM 100 MG/10 ML LIQUID UDC GT SCH ×2 (08:56→20:24)
[2022-11-20] MEDS: levETIRAcetam 500 MG/5 ML LIQUID UDC GT SCH ×2 (08:57→20:25)
[2022-11-20] MEDS: LACOSAMIDE 100 MG/10 ML UDC GT SCH ×2 (09:02→20:26)
[2022-11-20] MEDS: REMEDY ESSENTIAL ZINC PASTE 113 GM TOP SCH ×5 (09:02→20:28)
[2022-11-20] MEDS: NEOMY/BACITRAC/POLYMI OINT 28.35 GM TUBE TOP SCH ×10 (09:03→20:30)
[2022-11-20] MEDS: NYSTATIN CREAM 30 GM TUBE TP SCH ×2 (09:03→20:30)
[2022-11-20] MEDS: HEPARIN SODIUM,PORCINE 5,000 UNITS/ML VIAL SQ SCH ×2 (09:06→20:27)
[2022-11-20] MEDS: JEVITY 1.2 1000 ML LIQUID GT PRN (16:45)
[2022-11-20 20:02] VITALS: TEMP 98.4
[2022-11-20] MEDS: NEOMY/BACITRA/POLYMYXIN B OINT UD PACKET TP SCH (20:31)
[2022-11-20] MEDS: NORMAL SALINE FLUSH 10 ML DISP.SYRIN IV SCH (21:00)
[2022-11-21] MEDS: POLYVINYL ALCOHOL OPHT DROPS 15 ML BOTTLE EACHEYE SCH ×6 (03:00→22:58)
[2022-11-21] MEDS: MINERAL OIL/PETROLAT OPHT OINT 3.5 GM TUBE EACHEYE SCH ×3 (05:39→22:58)
[2022-11-21 08:00] VITALS: TEMP 98.8
[2022-11-21] MEDS: NORMAL SALINE FLUSH 10 ML DISP.SYRIN IV SCH ×2 (09:00→21:00)
[2022-11-21] MEDS: HYDROGEN PEROXIDE 3% 118 ML BOTTLE TP SCH ×2 (09:18→20:46)
[2022-11-21] MEDS: DOCUSATE SODIUM 100 MG/10 ML LIQUID UDC GT SCH ×2 (09:33→20:35)
[2022-11-21] MEDS: LACOSAMIDE 100 MG/10 ML UDC GT SCH ×2 (09:33→20:36)
[2022-11-21] MEDS: levETIRAcetam 500 MG/5 ML LIQUID UDC GT SCH ×2 (09:33→20:35)
[2022-11-21] MEDS: REMEDY ESSENTIAL ZINC PASTE 113 GM TOP SCH ×4 (09:34→20:38)
[2022-11-21] MEDS: HEPARIN SODIUM,PORCINE 5,000 UNITS/ML VIAL SQ SCH ×2 (09:34→20:37)
[2022-11-21] MEDS: NEOMY/BACITRAC/POLYMI OINT 28.35 GM TUBE TOP SCH ×10 (09:34→20:39)
[2022-11-21] MEDS: NEOMY/BACITRA/POLYMYXIN B OINT UD PACKET TP SCH ×2 (09:35→20:39)
[2022-11-21] MEDS: NYSTATIN CREAM 30 GM TUBE TP SCH ×2 (09:35→20:39)
[2022-11-21 20:09] VITALS: TEMP 97.7
[2022-11-21] MEDS: PROTEIN SUPPLEMENT (PROSTAT) 30 ML LIQUID GT SCH (20:36)
[2022-11-21] MEDS: NUTRISOURCE FIBER 4 GM PACKET GT SCH (22:58)
[2022-11-22] MEDS: POLYVINYL ALCOHOL OPHT DROPS 15 ML BOTTLE EACHEYE SCH ×6 (03:11→23:14)
[2022-11-22] MEDS: MINERAL OIL/PETROLAT OPHT OINT 3.5 GM TUBE EACHEYE SCH ×3 (05:05→22:00)
[2022-11-22] MEDS: NUTRISOURCE FIBER 4 GM PACKET GT SCH ×3 (05:05→22:00)
[2022-11-22 08:00] VITALS: TEMP 98.2
[2022-11-22] MEDS: NEOMY/BACITRAC/POLYMI OINT 28.35 GM TUBE TOP SCH ×10 (09:00→20:20)
[2022-11-22] MEDS: NEOMY/BACITRA/POLYMYXIN B OINT UD PACKET TP SCH ×2 (09:00→20:21)
[2022-11-22] MEDS: NORMAL SALINE FLUSH 10 ML DISP.SYRIN IV SCH ×2 (09:00→21:00)
[2022-11-22] MEDS: NYSTATIN CREAM 30 GM TUBE TP SCH ×2 (09:00→20:21)
[2022-11-22] MEDS: levETIRAcetam 500 MG/5 ML LIQUID UDC GT SCH ×2 (09:00→20:14)
[2022-11-22] MEDS: LACOSAMIDE 100 MG/10 ML UDC GT SCH ×2 (09:00→20:16)
[2022-11-22] MEDS: GEMFIBROZIL 600 MG TABLET GT SCH ×2 (09:00→17:58)
[2022-11-22] MEDS: HEPARIN SODIUM,PORCINE 5,000 UNITS/ML VIAL SQ SCH ×2 (09:00→20:17)
[2022-11-22] MEDS: REMEDY ESSENTIAL ZINC PASTE 113 GM TOP SCH ×4 (09:00→20:19)
[2022-11-22] MEDS: DOCUSATE SODIUM 100 MG/10 ML LIQUID UDC GT SCH ×2 (09:00→20:11)
[2022-11-22] MEDS: HYDROGEN PEROXIDE 3% 118 ML BOTTLE TP SCH ×2 (09:00→22:11)
[2022-11-22] MEDS: PROTEIN SUPPLEMENT (PROSTAT) 30 ML LIQUID GT SCH ×2 (09:00→20:16)
[2022-11-22] MEDS: LORAZEPAM 0.5 MG TABLET GT PRN (15:42)
[2022-11-22 19:04] LABS: *BILIRUBIN,URIN NEGATIVE (NEGATIVE); *BLOOD, URINE 2+ (NEGATIVE); *CLARITY,URINE SLIGHTLY CLOUDY (CLEAR); *COLOR,URINE LIGHT YELLOW (YELLOW); *KETONES,URINE NEGATIVE (NEGATIVE); *PROTEIN,URINE NEGATIVE (NEGATIVE); *UROBILINOGEN,URINE 0.2 E.U./dl (NORMAL); LEUKOCYTE ESTERASE ,URINE TRACE (NEGATIVE); NITRITE, URINE NEGATIVE (NEGATIVE); PH,URINE 8.5 (5.0-8.0); UGLUCOSE NEGATIVE (NEGATIVE)
[2022-11-22 20:00] VITALS: TEMP 98
[2022-11-22] MEDS: JEVITY 1.2 1000 ML LIQUID GT PRN (20:25)
[2022-11-22 22:02] LABS: BACTERIA,URINE FEW /HPF (NONE SEEN); RBC,URINE 20-50 /HPF (0-3); SQUAMOUS EPITHELIAL CELL,UR FEW /HPF (NONE SEEN); URINE AMORPHOUS PHOSPHATES MODERATE /HPF
[2022-11-23] MEDS: POLYVINYL ALCOHOL OPHT DROPS 15 ML BOTTLE EACHEYE SCH ×6 (03:00→23:00)
[2022-11-23] MEDS: NUTRISOURCE FIBER 4 GM PACKET GT SCH ×3 (05:14→22:00)
[2022-11-23] MEDS: MINERAL OIL/PETROLAT OPHT OINT 3.5 GM TUBE EACHEYE SCH ×3 (05:14→22:00)
[2022-11-23 07:45] VITALS: TEMP 97.8
[2022-11-23] MEDS: DOCUSATE SODIUM 100 MG/10 ML LIQUID UDC GT SCH ×2 (08:48→21:00)
[2022-11-23] MEDS: levETIRAcetam 500 MG/5 ML LIQUID UDC GT SCH ×2 (08:54→21:00)
[2022-11-23] MEDS: GEMFIBROZIL 600 MG TABLET GT SCH ×2 (08:56→17:00)
[2022-11-23] MEDS: PROTEIN SUPPLEMENT (PROSTAT) 30 ML LIQUID GT SCH ×2 (08:56→21:00)
[2022-11-23] MEDS: HEPARIN SODIUM,PORCINE 5,000 UNITS/ML VIAL SQ SCH ×2 (08:56→21:00)
[2022-11-23] MEDS: LACOSAMIDE 100 MG/10 ML UDC GT SCH ×2 (08:56→21:00)
[2022-11-23] MEDS: REMEDY ESSENTIAL ZINC PASTE 113 GM TOP SCH ×4 (08:57→21:00)
[2022-11-23] MEDS: NEOMY/BACITRA/POLYMYXIN B OINT UD PACKET TP SCH ×2 (08:58→21:00)
[2022-11-23] MEDS: NYSTATIN CREAM 30 GM TUBE TP SCH ×2 (08:58→21:00)
[2022-11-23] MEDS: NEOMY/BACITRAC/POLYMI OINT 28.35 GM TUBE TOP SCH ×10 (08:58→21:00)
[2022-11-23] MEDS: HYDROGEN PEROXIDE 3% 118 ML BOTTLE TP SCH ×2 (09:11→21:00)
[2022-11-23] MEDS: NORMAL SALINE FLUSH 10 ML DISP.SYRIN IV SCH ×2 (09:34→21:00)
[2022-11-23] MEDS: LORAZEPAM 0.5 MG TABLET GT PRN (15:52)
[2022-11-23] MEDS: JEVITY 1.2 1000 ML LIQUID GT PRN (18:07)
[2022-11-23 20:00] VITALS: TEMP 99.2
[2022-11-24] MEDS: POLYVINYL ALCOHOL OPHT DROPS 15 ML BOTTLE EACHEYE SCH ×6 (03:12→23:14)
[2022-11-24] MEDS: MINERAL OIL/PETROLAT OPHT OINT 3.5 GM TUBE EACHEYE SCH ×3 (06:00→22:04)
[2022-11-24] MEDS: NUTRISOURCE FIBER 4 GM PACKET GT SCH ×3 (06:00→22:04)
[2022-11-24 08:00] VITALS: TEMP 97.2
[2022-11-24] MEDS: HYDROGEN PEROXIDE 3% 118 ML BOTTLE TP SCH ×2 (09:38→21:04)
[2022-11-24] MEDS: levETIRAcetam 500 MG/5 ML LIQUID UDC GT SCH ×2 (09:55→20:38)
[2022-11-24] MEDS: DOCUSATE SODIUM 100 MG/10 ML LIQUID UDC GT SCH ×2 (09:55→20:38)
[2022-11-24] MEDS: PROTEIN SUPPLEMENT (PROSTAT) 30 ML LIQUID GT SCH ×2 (09:56→20:38)
[2022-11-24] MEDS: LACOSAMIDE 100 MG/10 ML UDC GT SCH ×2 (09:56→20:45)
[2022-11-24] MEDS: NORMAL SALINE FLUSH 10 ML DISP.SYRIN IV SCH ×2 (09:56→21:00)
[2022-11-24] MEDS: GEMFIBROZIL 600 MG TABLET GT SCH ×2 (09:56→17:59)
[2022-11-24] MEDS: NYSTATIN CREAM 30 GM TUBE TP SCH ×2 (09:57→20:39)
[2022-11-24] MEDS: NEOMY/BACITRAC/POLYMI OINT 28.35 GM TUBE TOP SCH ×10 (09:57→20:39)
[2022-11-24] MEDS: REMEDY ESSENTIAL ZINC PASTE 113 GM TOP SCH ×4 (09:57→20:39)
[2022-11-24] MEDS: NEOMY/BACITRA/POLYMYXIN B OINT UD PACKET TP SCH ×2 (09:58→20:39)
[2022-11-24] MEDS: HEPARIN SODIUM,PORCINE 5,000 UNITS/ML VIAL SQ SCH ×2 (10:00→21:00)
[2022-11-24] MEDS ORDERED: CLOBAZAM 2.5 MG/ML GT SCH (12:00)
[2022-11-24] MEDS: CLONAZEPAM 0.5 MG TABLET GT SCH (14:14)
[2022-11-24 20:00] VITALS: TEMP 97.4
[2022-11-25] MEDS: CLONAZEPAM 0.5 MG TABLET GT SCH ×2 (00:42→12:27)
[2022-11-25] MEDS: POLYVINYL ALCOHOL OPHT DROPS 15 ML BOTTLE EACHEYE SCH ×6 (03:40→22:07)
[2022-11-25] MEDS: MINERAL OIL/PETROLAT OPHT OINT 3.5 GM TUBE EACHEYE SCH ×3 (06:07→22:07)
[2022-11-25] MEDS: NUTRISOURCE FIBER 4 GM PACKET GT SCH ×3 (06:07→22:07)
[2022-11-25 08:09] VITALS: TEMP 97.6
[2022-11-25] MEDS ORDERED: CLOBAZAM 2.5 MG/ML GT SCH ×2 (09:00)
[2022-11-25] MEDS: DOCUSATE SODIUM 100 MG/10 ML LIQUID UDC GT SCH ×2 (09:02→20:31)
[2022-11-25] MEDS: PROTEIN SUPPLEMENT (PROSTAT) 30 ML LIQUID GT SCH ×2 (09:03→20:31)
[2022-11-25] MEDS: GEMFIBROZIL 600 MG TABLET GT SCH ×2 (09:03→17:38)
[2022-11-25] MEDS: levETIRAcetam 500 MG/5 ML LIQUID UDC GT SCH ×2 (09:03→20:31)
[2022-11-25] MEDS: REMEDY ESSENTIAL ZINC PASTE 113 GM TOP SCH ×4 (09:03→20:31)
[2022-11-25] MEDS: LACOSAMIDE 100 MG/10 ML UDC GT SCH ×2 (09:03→20:31)
[2022-11-25] MEDS: NORMAL SALINE FLUSH 10 ML DISP.SYRIN IV SCH (09:03)
[2022-11-25] MEDS: NEOMY/BACITRAC/POLYMI OINT 28.35 GM TUBE TOP SCH ×10 (09:03→20:31)
[2022-11-25] MEDS: NEOMY/BACITRA/POLYMYXIN B OINT UD PACKET TP SCH ×2 (09:04→20:31)
[2022-11-25] MEDS: NYSTATIN CREAM 30 GM TUBE TP SCH ×2 (09:04→20:31)
[2022-11-25] MEDS: HEPARIN SODIUM,PORCINE 5,000 UNITS/ML VIAL SQ SCH (09:12)
[2022-11-25] MEDS: HYDROGEN PEROXIDE 3% 118 ML BOTTLE TP SCH ×2 (09:18→21:00)
[2022-11-25] MEDS ORDERED: LORAZEPAM 0.5 MG TABLET ONE (14:55)
[2022-11-25] MEDS: LORAZEPAM 0.5 MG TABLET GT PRN (14:56)
[2022-11-25 20:10] VITALS: TEMP 98.6
[2022-11-26] MEDS: JEVITY 1.2 1000 ML LIQUID GT PRN (01:16)
[2022-11-26] MEDS: POLYVINYL ALCOHOL OPHT DROPS 15 ML BOTTLE EACHEYE SCH ×6 (03:00→23:00)
[2022-11-26] MEDS: NUTRISOURCE FIBER 4 GM PACKET GT SCH ×3 (05:13→22:19)
[2022-11-26] MEDS: MINERAL OIL/PETROLAT OPHT OINT 3.5 GM TUBE EACHEYE SCH ×3 (05:13→22:19)
[2022-11-26 07:57] LABS: BASOPHILS % (AUTO) 0.7 % (0.0-2.0); EOSINOPHILS # (AUTO) 0.2 K/uL (0.0-0.7); HEMATOCRIT 39.3 % (36.7-47.1); HEMOGLOBIN 13.3 g/dL (12.5-16.3); LYMPHOCYTES # (AUTO) 2.5 K/uL (0.8-4.8); LYMPHOCYTES % (AUTO) 42.2 % (20.5-51.5); MEAN CORPUSCULAR HEMOGLOBIN 32.2 uug (23.8-33.4); MEAN CORPUSCULAR HGB CONC 34 g/dL (32.5-36.3); MEAN CORPUSCULAR VOLUME 95.2 fL (73.0-96.2); MONOCYTES # (AUTO) 0.5 K/uL (0.1-1.30); MONOCYTES % (AUTO) 8.2 % (0.0-11.0); NEUTROPHILS # (AUTO) 2.6 K/uL (1.8-8.9); NEUTROPHILS % (AUTO) 44.9 % (38.5-71.5); PLATELET COUNT (AUTO) 328 K/uL (152-348); RED BLOOD CELL COUNT(AUTO) 4.13 MIL/uL (4.06-5.63); RED CELL DISTRIBUTION WIDTH 16.3 % (12.1-16.2); WHITE BLOOD COUNT (AUTO) 5.8 K/uL (3.6-10.2)
[2022-11-26 08:00] VITALS: TEMP 97.8
[2022-11-26 08:07] LABS: DIFFERENTIAL COMMENT 1
[2022-11-26] MEDS: LACOSAMIDE 100 MG/10 ML UDC GT SCH ×2 (08:09→20:48)
[2022-11-26] MEDS: DOCUSATE SODIUM 100 MG/10 ML LIQUID UDC GT SCH ×2 (08:09→20:48)
[2022-11-26] MEDS: levETIRAcetam 500 MG/5 ML LIQUID UDC GT SCH ×2 (08:09→20:48)
[2022-11-26] MEDS: PROTEIN SUPPLEMENT (PROSTAT) 30 ML LIQUID GT SCH ×2 (08:09→20:48)
[2022-11-26] MEDS: REMEDY ESSENTIAL ZINC PASTE 113 GM TOP SCH ×4 (08:09→20:49)
[2022-11-26] MEDS: GEMFIBROZIL 600 MG TABLET GT SCH ×2 (08:10→17:47)
[2022-11-26] MEDS: NEOMY/BACITRA/POLYMYXIN B OINT UD PACKET TP SCH ×2 (08:11→20:49)
[2022-11-26] MEDS: NEOMY/BACITRAC/POLYMI OINT 28.35 GM TUBE TOP SCH ×10 (08:11→20:49)
[2022-11-26] MEDS: HYDROGEN PEROXIDE 3% 118 ML BOTTLE TP SCH (08:11)
[2022-11-26] MEDS: NYSTATIN CREAM 30 GM TUBE TP SCH ×2 (08:11→20:49)
[2022-11-26 08:32] LABS: BILIRUBIN,TOTAL 0.3 mg/dL (0.2-1.0); CALCIUM 9.9 mg/dL (8.5-10.1); CREATININE 0.8 mg/dL (0.6-1.3); MAGNESIUM 2.3 mg/dL (1.8-2.4); PHOSPHOROUS 4.6 mg/dL (2.5-4.9); TOTAL PROTEIN, SERUM 9.2 g/dL (6.4-8.2)
[2022-11-26] MEDS: CLONAZEPAM 0.5 MG TABLET GT SCH ×2 (12:01)
[2022-11-26 19:56] VITALS: TEMP 97.3
[2022-11-27] MEDS: POLYVINYL ALCOHOL OPHT DROPS 15 ML BOTTLE EACHEYE SCH ×6 (03:01→23:00)
[2022-11-27] MEDS: JEVITY 1.2 1000 ML LIQUID GT PRN (04:57)
[2022-11-27] MEDS: MINERAL OIL/PETROLAT OPHT OINT 3.5 GM TUBE EACHEYE SCH ×3 (05:05→22:05)
[2022-11-27] MEDS: NUTRISOURCE FIBER 4 GM PACKET GT SCH ×3 (05:05→22:05)
[2022-11-27 07:25] VITALS: O2SAT 99
[2022-11-27 08:00] VITALS: TEMP 97.8
[2022-11-27] MEDS: DOCUSATE SODIUM 100 MG/10 ML LIQUID UDC GT SCH ×2 (08:36→20:46)
[2022-11-27] MEDS: GEMFIBROZIL 600 MG TABLET GT SCH ×2 (08:37→16:37)
[2022-11-27] MEDS: LACOSAMIDE 100 MG/10 ML UDC GT SCH ×2 (08:37→20:46)
[2022-11-27] MEDS: levETIRAcetam 500 MG/5 ML LIQUID UDC GT SCH ×2 (08:37→20:46)
[2022-11-27] MEDS: PROTEIN SUPPLEMENT (PROSTAT) 30 ML LIQUID GT SCH ×2 (08:38→20:46)
[2022-11-27] MEDS: REMEDY ESSENTIAL ZINC PASTE 113 GM TOP SCH ×4 (08:38→20:47)
[2022-11-27] MEDS: NYSTATIN CREAM 30 GM TUBE TP SCH ×2 (09:00→20:48)
[2022-11-27] MEDS: NEOMY/BACITRA/POLYMYXIN B OINT UD PACKET TP SCH ×2 (09:00→20:48)
[2022-11-27] MEDS: NEOMY/BACITRAC/POLYMI OINT 28.35 GM TUBE TOP SCH ×10 (09:00→20:48)
[2022-11-27] MEDS: HYDROGEN PEROXIDE 3% 118 ML BOTTLE TP SCH ×2 (09:33→21:00)
[2022-11-27] MEDS: CLONAZEPAM 0.5 MG TABLET GT SCH ×2 (12:01)
[2022-11-27 19:51] VITALS: TEMP 97.5
[2022-11-27] MEDS: HEPARIN SODIUM,PORCINE 5,000 UNITS/ML VIAL SQ SCH (20:46)
[2022-11-28] MEDS: CLONAZEPAM 0.5 MG TABLET GT SCH ×2 (00:25→12:44)
[2022-11-28] MEDS: POLYVINYL ALCOHOL OPHT DROPS 15 ML BOTTLE EACHEYE SCH ×6 (03:00→22:58)
[2022-11-28] MEDS: NUTRISOURCE FIBER 4 GM PACKET GT SCH ×3 (05:53→21:51)
[2022-11-28] MEDS: MINERAL OIL/PETROLAT OPHT OINT 3.5 GM TUBE EACHEYE SCH ×3 (05:53→21:50)
[2022-11-28 07:48] VITALS: TEMP 99.7
[2022-11-28] MEDS: DOCUSATE SODIUM 100 MG/10 ML LIQUID UDC GT SCH ×2 (08:57→20:12)
[2022-11-28] MEDS: NYSTATIN CREAM 30 GM TUBE TP SCH ×2 (09:00→20:16)
[2022-11-28] MEDS: NEOMY/BACITRAC/POLYMI OINT 28.35 GM TUBE TOP SCH ×10 (09:00→20:19)
[2022-11-28] MEDS: NEOMY/BACITRA/POLYMYXIN B OINT UD PACKET TP SCH ×2 (09:00→20:16)
[2022-11-28] MEDS: levETIRAcetam 500 MG/5 ML LIQUID UDC GT SCH ×2 (09:02→20:12)
[2022-11-28] MEDS: GEMFIBROZIL 600 MG TABLET GT SCH ×2 (09:02→17:14)
[2022-11-28] MEDS: PROTEIN SUPPLEMENT (PROSTAT) 30 ML LIQUID GT SCH ×2 (09:02→20:12)
[2022-11-28] MEDS: REMEDY ESSENTIAL ZINC PASTE 113 GM TOP SCH ×4 (09:02→20:15)
[2022-11-28] MEDS: LACOSAMIDE 100 MG/10 ML UDC GT SCH ×2 (09:03→20:12)
[2022-11-28] MEDS: HEPARIN SODIUM,PORCINE 5,000 UNITS/ML VIAL SQ SCH ×2 (09:07→20:15)
[2022-11-28] MEDS: ACETAMINOPHEN 650 MG/20 ML UDC- SA PATIENTS-PAIN ONLY GT PRN (09:09)
[2022-11-28] MEDS: HYDROGEN PEROXIDE 3% 118 ML BOTTLE TP SCH ×2 (09:41→21:06)
[2022-11-28 19:56] VITALS: TEMP 99.3
[2022-11-29] MEDS ORDERED: CLONAZEPAM 0.5 MG TABLET ONE ×2 (00:35→12:28)
[2022-11-29] MEDS: CLONAZEPAM 0.5 MG TABLET GT SCH ×2 (00:39→12:00)
[2022-11-29] MEDS: POLYVINYL ALCOHOL OPHT DROPS 15 ML BOTTLE EACHEYE SCH ×6 (02:29→22:48)
[2022-11-29] MEDS: NUTRISOURCE FIBER 4 GM PACKET GT SCH ×3 (05:36→22:42)
[2022-11-29] MEDS: MINERAL OIL/PETROLAT OPHT OINT 3.5 GM TUBE EACHEYE SCH ×3 (05:36→22:42)
[2022-11-29 07:37] VITALS: TEMP 97.8
[2022-11-29] MEDS: DOCUSATE SODIUM 100 MG/10 ML LIQUID UDC GT SCH ×2 (08:26→20:32)
[2022-11-29] MEDS: levETIRAcetam 500 MG/5 ML LIQUID UDC GT SCH ×2 (08:27→20:32)
[2022-11-29] MEDS: LACOSAMIDE 100 MG/10 ML UDC GT SCH ×2 (08:28→20:32)
[2022-11-29] MEDS: PROTEIN SUPPLEMENT (PROSTAT) 30 ML LIQUID GT SCH ×2 (08:28→20:32)
[2022-11-29] MEDS: GEMFIBROZIL 600 MG TABLET GT SCH ×2 (08:28→17:51)
[2022-11-29] MEDS: HYDROGEN PEROXIDE 3% 118 ML BOTTLE TP SCH (08:29)
[2022-11-29] MEDS: HEPARIN SODIUM,PORCINE 5,000 UNITS/ML VIAL SQ SCH ×2 (08:30→21:00)
[2022-11-29] MEDS: REMEDY ESSENTIAL ZINC PASTE 113 GM TOP SCH ×4 (08:30→20:32)
[2022-11-29] MEDS: NEOMY/BACITRAC/POLYMI OINT 28.35 GM TUBE TOP SCH ×10 (08:31→20:32)
[2022-11-29] MEDS: NYSTATIN CREAM 30 GM TUBE TP SCH ×2 (08:32→20:33)
[2022-11-29] MEDS: NEOMY/BACITRA/POLYMYXIN B OINT UD PACKET TP SCH ×2 (08:33→20:33)
[2022-11-29] MEDS: JEVITY 1.2 1000 ML LIQUID GT PRN (13:38)
[2022-11-29 20:08] VITALS: TEMP 98
[2022-11-30] MEDS: CLONAZEPAM 0.5 MG TABLET GT SCH ×2 (00:29→11:25)
[2022-11-30] MEDS: POLYVINYL ALCOHOL OPHT DROPS 15 ML BOTTLE EACHEYE SCH ×6 (03:00→23:00)
[2022-11-30] MEDS: MINERAL OIL/PETROLAT OPHT OINT 3.5 GM TUBE EACHEYE SCH ×3 (05:21→21:17)
[2022-11-30] MEDS: NUTRISOURCE FIBER 4 GM PACKET GT SCH ×3 (05:21→21:17)
[2022-11-30 08:00] VITALS: TEMP 99
[2022-11-30] MEDS: HYDROGEN PEROXIDE 3% 118 ML BOTTLE TP SCH ×3 (08:00→20:01)
[2022-11-30] MEDS: DOCUSATE SODIUM 100 MG/10 ML LIQUID UDC GT SCH ×2 (08:14→21:16)
[2022-11-30] MEDS: levETIRAcetam 500 MG/5 ML LIQUID UDC GT SCH ×2 (08:15→21:16)
[2022-11-30] MEDS: PROTEIN SUPPLEMENT (PROSTAT) 30 ML LIQUID GT SCH ×2 (08:16→21:16)
[2022-11-30] MEDS: GEMFIBROZIL 600 MG TABLET GT SCH ×2 (08:16→16:00)
[2022-11-30] MEDS: NEOMY/BACITRAC/POLYMI OINT 28.35 GM TUBE TOP SCH ×9 (08:17→21:16)
[2022-11-30] MEDS: REMEDY ESSENTIAL ZINC PASTE 113 GM TOP SCH ×4 (08:17→21:16)
[2022-11-30] MEDS: HEPARIN SODIUM,PORCINE 5,000 UNITS/ML VIAL SQ SCH ×2 (08:17→21:00)
[2022-11-30] MEDS: NYSTATIN CREAM 30 GM TUBE TP SCH ×2 (08:18→21:16)
[2022-11-30] MEDS: NEOMY/BACITRA/POLYMYXIN B OINT UD PACKET TP SCH ×2 (08:18→21:16)
[2022-11-30] MEDS: LACOSAMIDE 100 MG/10 ML UDC GT SCH ×2 (08:23→21:16)
[2022-11-30] MEDS: JEVITY 1.2 1000 ML LIQUID GT PRN (13:36)
[2022-11-30 19:50] VITALS: TEMP 98.3
[2022-12-01] MEDS: POLYVINYL ALCOHOL OPHT DROPS 15 ML BOTTLE EACHEYE SCH ×6 (03:00→22:22)
[2022-12-01] MEDS: MINERAL OIL/PETROLAT OPHT OINT 3.5 GM TUBE EACHEYE SCH ×3 (06:10→21:16)
[2022-12-01] MEDS: NUTRISOURCE FIBER 4 GM PACKET GT SCH ×3 (06:10→21:16)
[2022-12-01 07:53] VITALS: TEMP 97.6
[2022-12-01] MEDS: HYDROGEN PEROXIDE 3% 118 ML BOTTLE TP SCH ×2 (08:52→21:27)
[2022-12-01] MEDS: DOCUSATE SODIUM 100 MG/10 ML LIQUID UDC GT SCH ×2 (08:55→20:07)
[2022-12-01] MEDS: levETIRAcetam 500 MG/5 ML LIQUID UDC GT SCH ×2 (08:56→20:07)
[2022-12-01] MEDS: GEMFIBROZIL 600 MG TABLET GT SCH ×2 (08:57→17:24)
[2022-12-01] MEDS: PROTEIN SUPPLEMENT (PROSTAT) 30 ML LIQUID GT SCH ×2 (08:58→20:07)
[2022-12-01] MEDS: LACOSAMIDE 100 MG/10 ML UDC GT SCH ×2 (09:04→20:07)
[2022-12-01] MEDS: HEPARIN SODIUM,PORCINE 5,000 UNITS/ML VIAL SQ SCH ×2 (09:06→20:08)
[2022-12-01] MEDS: REMEDY ESSENTIAL ZINC PASTE 113 GM TOP SCH ×3 (09:06→20:08)
[2022-12-01] MEDS: NEOMY/BACITRAC/POLYMI OINT 28.35 GM TUBE TOP SCH ×6 (09:07→21:16)
[2022-12-01] MEDS: NYSTATIN CREAM 30 GM TUBE TP SCH (09:09)
[2022-12-01] MEDS: NEOMY/BACITRA/POLYMYXIN B OINT UD PACKET TP SCH ×2 (09:10→21:16)
[2022-12-01] MEDS: CLONAZEPAM 0.5 MG TABLET GT SCH ×2 (12:24)
[2022-12-01] MEDS: JEVITY 1.2 1000 ML LIQUID GT PRN (14:06)
[2022-12-01 20:00] VITALS: TEMP 98.5
[2022-12-02] MEDS: CLONAZEPAM 0.5 MG TABLET GT SCH ×2 (00:15→12:18)
[2022-12-02] MEDS: POLYVINYL ALCOHOL OPHT DROPS 15 ML BOTTLE EACHEYE SCH ×6 (02:32→23:00)
[2022-12-02] MEDS: NUTRISOURCE FIBER 4 GM PACKET GT SCH ×3 (05:34→22:04)
[2022-12-02] MEDS: MINERAL OIL/PETROLAT OPHT OINT 3.5 GM TUBE EACHEYE SCH ×3 (05:34→22:04)
[2022-12-02 07:37] VITALS: TEMP 98.4
[2022-12-02] MEDS: DOCUSATE SODIUM 100 MG/10 ML LIQUID UDC GT SCH ×2 (09:30→20:46)
[2022-12-02] MEDS: GEMFIBROZIL 600 MG TABLET GT SCH ×2 (09:31→17:16)
[2022-12-02] MEDS: levETIRAcetam 500 MG/5 ML LIQUID UDC GT SCH ×2 (09:31→20:46)
[2022-12-02] MEDS: PROTEIN SUPPLEMENT (PROSTAT) 30 ML LIQUID GT SCH ×2 (09:31→20:46)
[2022-12-02] MEDS: HEPARIN SODIUM,PORCINE 5,000 UNITS/ML VIAL SQ SCH ×2 (09:32→20:47)
[2022-12-02] MEDS: LACOSAMIDE 100 MG/10 ML UDC GT SCH ×2 (09:32→20:46)
[2022-12-02] MEDS: NEOMY/BACITRAC/POLYMI OINT 28.35 GM TUBE TOP SCH ×6 (09:34→20:47)
[2022-12-02] MEDS: REMEDY ESSENTIAL ZINC PASTE 113 GM TOP SCH ×2 (09:34→20:47)
[2022-12-02] MEDS: NEOMY/BACITRA/POLYMYXIN B OINT UD PACKET TP SCH ×2 (09:35→20:47)
[2022-12-02] MEDS: HYDROGEN PEROXIDE 3% 118 ML BOTTLE TP SCH ×2 (09:52→21:14)
[2022-12-02 20:10] VITALS: TEMP 98.8
[2022-12-03] MEDS: CLONAZEPAM 0.5 MG TABLET GT SCH ×2 (00:14→12:06)
[2022-12-03] MEDS: POLYVINYL ALCOHOL OPHT DROPS 15 ML BOTTLE EACHEYE SCH ×6 (03:00→22:57)
[2022-12-03] MEDS: MINERAL OIL/PETROLAT OPHT OINT 3.5 GM TUBE EACHEYE SCH ×3 (05:19→21:18)
[2022-12-03] MEDS: NUTRISOURCE FIBER 4 GM PACKET GT SCH ×3 (05:20→21:18)
[2022-12-03 08:00] VITALS: TEMP 98.7
[2022-12-03] MEDS: GEMFIBROZIL 600 MG TABLET GT SCH ×2 (08:32→17:27)
[2022-12-03] MEDS: levETIRAcetam 500 MG/5 ML LIQUID UDC GT SCH ×2 (08:32→20:02)
[2022-12-03] MEDS: LACOSAMIDE 100 MG/10 ML UDC GT SCH ×2 (08:33→21:16)
[2022-12-03] MEDS: HEPARIN SODIUM,PORCINE 5,000 UNITS/ML VIAL SQ SCH ×2 (08:33→20:06)
[2022-12-03] MEDS: PROTEIN SUPPLEMENT (PROSTAT) 30 ML LIQUID GT SCH ×2 (08:33→20:02)
[2022-12-03] MEDS: NEOMY/BACITRAC/POLYMI OINT 28.35 GM TUBE TOP SCH ×6 (08:34→20:04)
[2022-12-03] MEDS: REMEDY ESSENTIAL ZINC PASTE 113 GM TOP SCH ×2 (08:34→20:04)
[2022-12-03] MEDS: NEOMY/BACITRA/POLYMYXIN B OINT UD PACKET TP SCH ×2 (08:35→20:04)
[2022-12-03] MEDS: DOCUSATE SODIUM 100 MG/10 ML LIQUID UDC GT SCH ×2 (08:37→20:20)
[2022-12-03] MEDS: HYDROGEN PEROXIDE 3% 118 ML BOTTLE TP SCH ×2 (09:08→21:51)
[2022-12-03] MEDS: JEVITY 1.2 1000 ML LIQUID GT PRN (14:33)
[2022-12-03 20:00] VITALS: TEMP 97.5
[2022-12-04] MEDS: POLYVINYL ALCOHOL OPHT DROPS 15 ML BOTTLE EACHEYE SCH ×6 (03:55→23:00)
[2022-12-04] MEDS: NUTRISOURCE FIBER 4 GM PACKET GT SCH ×3 (05:42→22:00)
[2022-12-04] MEDS: MINERAL OIL/PETROLAT OPHT OINT 3.5 GM TUBE EACHEYE SCH ×3 (05:42→22:00)
[2022-12-04 07:22] LABS: BASOPHILS # (AUTO) 0.1 K/UL (0.0-0.2); EOSINOPHILS # (AUTO) 0.3 K/uL (0.0-0.7); EOSINOPHILS % (AUTO) 4.7 % (0.0-7.0); HEMATOCRIT 35.3 % (36.7-47.1); LYMPHOCYTES % (AUTO) 33.4 % (20.5-51.5); MEAN CORPUSCULAR HEMOGLOBIN 32.4 uug (23.8-33.4); MEAN CORPUSCULAR HGB CONC 34 g/dL (32.5-36.3); MEAN CORPUSCULAR VOLUME 95.1 fL (73.0-96.2); MONOCYTES # (AUTO) 0.5 K/uL (0.1-1.30); MONOCYTES % (AUTO) 8.8 % (0.0-11.0); NEUTROPHILS # (AUTO) 3.1 K/uL (1.8-8.9); NEUTROPHILS % (AUTO) 52.1 % (38.5-71.5); PLATELET COUNT (AUTO) 249 K/uL (152-348); RED BLOOD CELL COUNT(AUTO) 3.71 MIL/uL (4.06-5.63); RED CELL DISTRIBUTION WIDTH 15.9 % (12.1-16.2)
[2022-12-04 07:33] LABS: CALCIUM 9.5 mg/dL (8.5-10.1); CARBON DIOXIDE 22 mmol/L (21-32); CHLORIDE 105 mmol/L (98-107); CREATININE 0.7 mg/dL (0.6-1.3); GLUCOSE 89 mg/dL (74-106); POTASSIUM 3.8 mmol/L (3.5-5.1); SODIUM SERUM 139 mmol/L (136-145); UREA NITROGEN, BLOOD 12 mg/dL (7-18)
[2022-12-04 08:00] VITALS: TEMP 97.6
[2022-12-04 08:13] LABS: DIFFERENTIAL COMMENT 1
[2022-12-04] MEDS: levETIRAcetam 500 MG/5 ML LIQUID UDC GT SCH ×2 (08:33→20:46)
[2022-12-04] MEDS: DOCUSATE SODIUM 100 MG/10 ML LIQUID UDC GT SCH ×2 (08:33→20:46)
[2022-12-04] MEDS: GEMFIBROZIL 600 MG TABLET GT SCH ×2 (08:34→17:52)
[2022-12-04] MEDS: PROTEIN SUPPLEMENT (PROSTAT) 30 ML LIQUID GT SCH ×2 (08:35→20:46)
[2022-12-04] MEDS: LACOSAMIDE 100 MG/10 ML UDC GT SCH ×2 (08:35→20:46)
[2022-12-04] MEDS: REMEDY ESSENTIAL ZINC PASTE 113 GM TOP SCH ×2 (08:36→20:46)
[2022-12-04] MEDS: HEPARIN SODIUM,PORCINE 5,000 UNITS/ML VIAL SQ SCH ×2 (08:36→20:46)
[2022-12-04] MEDS: NEOMY/BACITRA/POLYMYXIN B OINT UD PACKET TP SCH ×2 (08:37→20:47)
[2022-12-04] MEDS: NEOMY/BACITRAC/POLYMI OINT 28.35 GM TUBE TOP SCH ×6 (08:37→20:47)
[2022-12-04] MEDS: HYDROGEN PEROXIDE 3% 118 ML BOTTLE TP SCH ×2 (09:00→19:46)
[2022-12-04] MEDS: CLONAZEPAM 0.5 MG TABLET GT SCH ×2 (11:35)
[2022-12-04] MEDS: JEVITY 1.2 1000 ML LIQUID GT PRN (15:10)
[2022-12-04] MEDS: ACETYLCYSTEINE 10% 4ML VIAL NEB SCH (19:30)
[2022-12-04] MEDS: ALBUTEROL SULFATE 1.25 MG/3 ML NEBU NEB SCH (19:46)
[2022-12-04] MEDS: IPRATROPIUM BROMIDE 0.5 MG/2.5 ML NEBU NEB SCH (19:46)
[2022-12-04 19:57] VITALS: TEMP 97.2
[2022-12-05] MEDS: ALBUTEROL SULFATE 1.25 MG/3 ML NEBU NEB SCH ×4 (01:07→19:30)
[2022-12-05] MEDS: IPRATROPIUM BROMIDE 0.5 MG/2.5 ML NEBU NEB SCH ×4 (01:07→19:30)
[2022-12-05] MEDS: POLYVINYL ALCOHOL OPHT DROPS 15 ML BOTTLE EACHEYE SCH ×6 (03:00→22:12)
[2022-12-05] MEDS: MINERAL OIL/PETROLAT OPHT OINT 3.5 GM TUBE EACHEYE SCH ×3 (05:33→22:12)
[2022-12-05] MEDS: NUTRISOURCE FIBER 4 GM PACKET GT SCH ×3 (05:33→22:12)
[2022-12-05] MEDS: ACETYLCYSTEINE 10% 4ML VIAL NEB SCH ×2 (07:14→19:30)
[2022-12-05 08:00] VITALS: TEMP 97.6
[2022-12-05] MEDS: HYDROGEN PEROXIDE 3% 118 ML BOTTLE TP SCH ×2 (08:32→20:58)
[2022-12-05] MEDS: HEPARIN SODIUM,PORCINE 5,000 UNITS/ML VIAL SQ SCH ×2 (08:53→20:37)
[2022-12-05] MEDS: DOCUSATE SODIUM 100 MG/10 ML LIQUID UDC GT SCH ×2 (08:58→20:35)
[2022-12-05] MEDS: levETIRAcetam 500 MG/5 ML LIQUID UDC GT SCH ×2 (09:01→20:35)
[2022-12-05] MEDS: GEMFIBROZIL 600 MG TABLET GT SCH ×2 (09:02→17:03)
[2022-12-05] MEDS: PROTEIN SUPPLEMENT (PROSTAT) 30 ML LIQUID GT SCH ×2 (09:03→20:35)
[2022-12-05] MEDS: LACOSAMIDE 100 MG/10 ML UDC GT SCH ×2 (09:11→20:35)
[2022-12-05] MEDS: REMEDY ESSENTIAL ZINC PASTE 113 GM TOP SCH ×2 (09:12→20:35)
[2022-12-05] MEDS: NEOMY/BACITRAC/POLYMI OINT 28.35 GM TUBE TOP SCH ×6 (09:13→20:36)
[2022-12-05] MEDS: NEOMY/BACITRA/POLYMYXIN B OINT UD PACKET TP SCH ×2 (09:14→20:36)
[2022-12-05] MEDS: CLONAZEPAM 0.5 MG TABLET GT SCH ×2 (12:30)
[2022-12-05] MEDS: JEVITY 1.2 1000 ML LIQUID GT PRN (17:03)
[2022-12-05 20:37] VITALS: TEMP 98.3
[2022-12-05 21:27] VITALS: TEMP 98.3
[2022-12-06] MEDS: IPRATROPIUM BROMIDE 0.5 MG/2.5 ML NEBU NEB SCH ×5 (00:45→19:58)
[2022-12-06] MEDS: ALBUTEROL SULFATE 1.25 MG/3 ML NEBU NEB SCH ×4 (00:45→19:58)
[2022-12-06] MEDS: POLYVINYL ALCOHOL OPHT DROPS 15 ML BOTTLE EACHEYE SCH ×6 (02:00→22:52)
[2022-12-06] MEDS: MINERAL OIL/PETROLAT OPHT OINT 3.5 GM TUBE EACHEYE SCH ×3 (05:57→22:52)
[2022-12-06] MEDS: NUTRISOURCE FIBER 4 GM PACKET GT SCH ×3 (05:57→22:52)
[2022-12-06] MEDS: ACETYLCYSTEINE 10% 4ML VIAL NEB SCH ×3 (07:24→19:58)
[2022-12-06] MEDS: HYDROGEN PEROXIDE 3% 118 ML BOTTLE TP SCH ×2 (09:00→19:59)
[2022-12-06] MEDS: GEMFIBROZIL 600 MG TABLET GT SCH ×2 (09:36→16:47)
[2022-12-06] MEDS: REMEDY ESSENTIAL ZINC PASTE 113 GM TOP SCH ×2 (09:36→20:23)
[2022-12-06] MEDS: HEPARIN SODIUM,PORCINE 5,000 UNITS/ML VIAL SQ SCH ×2 (09:36→20:23)
[2022-12-06] MEDS: NEOMY/BACITRAC/POLYMI OINT 28.35 GM TUBE TOP SCH ×6 (09:36→20:23)
[2022-12-06] MEDS: levETIRAcetam 500 MG/5 ML LIQUID UDC GT SCH ×2 (09:36→20:22)
[2022-12-06] MEDS: LACOSAMIDE 100 MG/10 ML UDC GT SCH ×2 (09:36→20:22)
[2022-12-06] MEDS: PROTEIN SUPPLEMENT (PROSTAT) 30 ML LIQUID GT SCH ×2 (09:36→20:22)
[2022-12-06] MEDS: DOCUSATE SODIUM 100 MG/10 ML LIQUID UDC GT SCH ×2 (09:36→20:22)
[2022-12-06] MEDS: NEOMY/BACITRA/POLYMYXIN B OINT UD PACKET TP SCH ×2 (09:37→20:23)
[2022-12-06] MEDS: CLONAZEPAM 0.5 MG TABLET GT SCH ×2 (12:00)
[2022-12-06 20:00] VITALS: TEMP 97.2
[2022-12-07] MEDS: ALBUTEROL SULFATE 1.25 MG/3 ML NEBU NEB SCH ×4 (01:40→19:04)
[2022-12-07] MEDS: IPRATROPIUM BROMIDE 0.5 MG/2.5 ML NEBU NEB SCH ×4 (01:40→19:04)
[2022-12-07] MEDS: POLYVINYL ALCOHOL OPHT DROPS 15 ML BOTTLE EACHEYE SCH ×6 (02:00→22:00)
[2022-12-07] MEDS: NUTRISOURCE FIBER 4 GM PACKET GT SCH ×3 (06:19→22:00)
[2022-12-07] MEDS: MINERAL OIL/PETROLAT OPHT OINT 3.5 GM TUBE EACHEYE SCH ×3 (06:19→22:00)
[2022-12-07 08:05] VITALS: TEMP 97.7
[2022-12-07] MEDS: ACETYLCYSTEINE 10% 4ML VIAL NEB SCH ×3 (08:17→19:30)
[2022-12-07] MEDS: HYDROGEN PEROXIDE 3% 118 ML BOTTLE TP SCH ×2 (08:17→19:04)
[2022-12-07] MEDS: HEPARIN SODIUM,PORCINE 5,000 UNITS/ML VIAL SQ SCH ×2 (09:00→20:52)
[2022-12-07] MEDS: DOCUSATE SODIUM 100 MG/10 ML LIQUID UDC GT SCH ×2 (09:00→20:22)
[2022-12-07] MEDS: LACOSAMIDE 100 MG/10 ML UDC GT SCH ×2 (10:00→20:36)
[2022-12-07] MEDS: NEOMY/BACITRA/POLYMYXIN B OINT UD PACKET TP SCH ×2 (10:00→20:36)
[2022-12-07] MEDS: NEOMY/BACITRAC/POLYMI OINT 28.35 GM TUBE TOP SCH ×3 (10:00)
[2022-12-07] MEDS: GEMFIBROZIL 600 MG TABLET GT SCH ×2 (10:00→16:56)
[2022-12-07] MEDS: levETIRAcetam 500 MG/5 ML LIQUID UDC GT SCH ×2 (10:00→20:22)
[2022-12-07] MEDS: PROTEIN SUPPLEMENT (PROSTAT) 30 ML LIQUID GT SCH ×2 (10:00→20:22)
[2022-12-07] MEDS: REMEDY ESSENTIAL ZINC PASTE 113 GM TOP SCH ×2 (10:00→20:36)
[2022-12-07] MEDS: CLONAZEPAM 0.5 MG TABLET GT SCH ×2 (12:28)
[2022-12-07 20:50] VITALS: TEMP 97
[2022-12-08] MEDS: ALBUTEROL SULFATE 1.25 MG/3 ML NEBU NEB SCH ×4 (01:04→19:12)
[2022-12-08] MEDS: IPRATROPIUM BROMIDE 0.5 MG/2.5 ML NEBU NEB SCH ×4 (01:04→19:12)
[2022-12-08] MEDS: POLYVINYL ALCOHOL OPHT DROPS 15 ML BOTTLE EACHEYE SCH ×6 (02:00→22:00)
[2022-12-08] MEDS: NUTRISOURCE FIBER 4 GM PACKET GT SCH ×3 (05:00→22:00)
[2022-12-08] MEDS: MINERAL OIL/PETROLAT OPHT OINT 3.5 GM TUBE EACHEYE SCH ×3 (05:00→22:00)
[2022-12-08] MEDS: ACETYLCYSTEINE 10% 4ML VIAL NEB SCH ×3 (07:30→19:12)
[2022-12-08 08:02] VITALS: TEMP 97.3
[2022-12-08] MEDS: DOCUSATE SODIUM 100 MG/10 ML LIQUID UDC GT SCH ×2 (09:36→20:25)
[2022-12-08] MEDS: levETIRAcetam 500 MG/5 ML LIQUID UDC GT SCH ×2 (09:36→20:55)
[2022-12-08] MEDS: GEMFIBROZIL 600 MG TABLET GT SCH ×2 (09:37→17:55)
[2022-12-08] MEDS: PROTEIN SUPPLEMENT (PROSTAT) 30 ML LIQUID GT SCH ×2 (09:37→20:29)
[2022-12-08] MEDS: LACOSAMIDE 100 MG/10 ML UDC GT SCH ×2 (09:37→21:00)
[2022-12-08] MEDS: REMEDY ESSENTIAL ZINC PASTE 113 GM TOP SCH ×2 (09:39→20:39)
[2022-12-08] MEDS: NEOMY/BACITRA/POLYMYXIN B OINT UD PACKET TP SCH ×2 (09:39→20:39)
[2022-12-08] MEDS: HEPARIN SODIUM,PORCINE 5,000 UNITS/ML VIAL SQ SCH ×2 (09:39→21:05)
[2022-12-08] MEDS: HYDROGEN PEROXIDE 3% 118 ML BOTTLE TP SCH ×2 (09:40→19:13)
[2022-12-08] MEDS: CLONAZEPAM 0.5 MG TABLET GT SCH ×2 (12:20)
[2022-12-08 20:00] VITALS: TEMP 97.5
[2022-12-09] MEDS: ALBUTEROL SULFATE 1.25 MG/3 ML NEBU NEB SCH ×4 (01:18→20:10)
[2022-12-09] MEDS: IPRATROPIUM BROMIDE 0.5 MG/2.5 ML NEBU NEB SCH ×4 (01:18→20:10)
[2022-12-09] MEDS: POLYVINYL ALCOHOL OPHT DROPS 15 ML BOTTLE EACHEYE SCH ×6 (02:00→21:51)
[2022-12-09] MEDS: NUTRISOURCE FIBER 4 GM PACKET GT SCH ×3 (05:14→22:57)
[2022-12-09] MEDS: MINERAL OIL/PETROLAT OPHT OINT 3.5 GM TUBE EACHEYE SCH ×3 (05:14→21:51)
[2022-12-09] MEDS: ACETYLCYSTEINE 10% 4ML VIAL NEB SCH ×2 (07:30→20:10)
[2022-12-09 07:43] VITALS: TEMP 97.6
[2022-12-09] MEDS: GEMFIBROZIL 600 MG TABLET GT SCH ×2 (08:35→17:54)
[2022-12-09] MEDS: levETIRAcetam 500 MG/5 ML LIQUID UDC GT SCH ×2 (08:35→20:00)
[2022-12-09] MEDS: DOCUSATE SODIUM 100 MG/10 ML LIQUID UDC GT SCH ×2 (08:35→20:00)
[2022-12-09] MEDS: PROTEIN SUPPLEMENT (PROSTAT) 30 ML LIQUID GT SCH ×2 (08:36→20:00)
[2022-12-09] MEDS: LACOSAMIDE 100 MG/10 ML UDC GT SCH ×2 (08:36→20:00)
[2022-12-09] MEDS: HEPARIN SODIUM,PORCINE 5,000 UNITS/ML VIAL SQ SCH ×2 (08:36→20:03)
[2022-12-09] MEDS: REMEDY ESSENTIAL ZINC PASTE 113 GM TOP SCH ×2 (08:37→20:00)
[2022-12-09] MEDS: NEOMY/BACITRA/POLYMYXIN B OINT UD PACKET TP SCH ×2 (08:37→20:00)
[2022-12-09] MEDS: HYDROGEN PEROXIDE 3% 118 ML BOTTLE TP SCH ×2 (09:18→21:04)
[2022-12-09] MEDS: CLONAZEPAM 0.5 MG TABLET GT SCH ×2 (12:26)
[2022-12-09 20:03] VITALS: TEMP 97.1
[2022-12-10] MEDS: CLONAZEPAM 0.5 MG TABLET GT SCH ×2 (00:53→11:46)
[2022-12-10] MEDS: ALBUTEROL SULFATE 1.25 MG/3 ML NEBU NEB SCH ×4 (00:55→19:29)
[2022-12-10] MEDS: IPRATROPIUM BROMIDE 0.5 MG/2.5 ML NEBU NEB SCH ×4 (00:55→19:29)
[2022-12-10] MEDS: POLYVINYL ALCOHOL OPHT DROPS 15 ML BOTTLE EACHEYE SCH ×6 (01:00→22:03)
[2022-12-10] MEDS: MINERAL OIL/PETROLAT OPHT OINT 3.5 GM TUBE EACHEYE SCH ×3 (05:13→22:03)
[2022-12-10] MEDS: NUTRISOURCE FIBER 4 GM PACKET GT SCH ×3 (05:13→22:03)
[2022-12-10 07:08] LABS: BASOPHILS # (AUTO) 0.1 K/UL (0.0-0.2); BASOPHILS % (AUTO) 0.9 % (0.0-2.0); EOSINOPHILS # (AUTO) 0.2 K/uL (0.0-0.7); EOSINOPHILS % (AUTO) 3.4 % (0.0-7.0); HEMATOCRIT 36.9 % (36.7-47.1); HEMOGLOBIN 12.5 g/dL (12.5-16.3); LYMPHOCYTES % (AUTO) 32.4 % (20.5-51.5); MEAN CORPUSCULAR HEMOGLOBIN 32.4 uug (23.8-33.4); MEAN CORPUSCULAR HGB CONC 34 g/dL (32.5-36.3); MEAN CORPUSCULAR VOLUME 96.1 fL (73.0-96.2); MONOCYTES # (AUTO) 0.5 K/uL (0.1-1.30); MONOCYTES % (AUTO) 8.4 % (0.0-11.0); NEUTROPHILS # (AUTO) 3.3 K/uL (1.8-8.9); NEUTROPHILS % (AUTO) 54.9 % (38.5-71.5); PLATELET COUNT (AUTO) 294 K/uL (152-348); RED BLOOD CELL COUNT(AUTO) 3.85 MIL/uL (4.06-5.63); RED CELL DISTRIBUTION WIDTH 16.4 % (12.1-16.2)
[2022-12-10] MEDS: ACETYLCYSTEINE 10% 4ML VIAL NEB SCH ×2 (07:28→19:29)
[2022-12-10 07:38] LABS: ALBUMIN 3.8 g/dL (3.4-5.0); BILIRUBIN,TOTAL 0.3 mg/dL (0.2-1.0); CALCIUM 9.9 mg/dL (8.5-10.1); CREATININE 0.8 mg/dL (0.6-1.3); MAGNESIUM 2.2 mg/dL (1.8-2.4); PHOSPHOROUS 4.6 mg/dL (2.5-4.9); POTASSIUM 3.8 mmol/L (3.5-5.1); TOTAL PROTEIN, SERUM 8.5 g/dL (6.4-8.2)
[2022-12-10 07:51] LABS: DIFFERENTIAL COMMENT 1
[2022-12-10 08:00] VITALS: TEMP 97.6; TEMP 98.5
[2022-12-10] MEDS: DOCUSATE SODIUM 100 MG/10 ML LIQUID UDC GT SCH ×2 (09:00→20:17)
[2022-12-10] MEDS: levETIRAcetam 500 MG/5 ML LIQUID UDC GT SCH ×2 (09:01→20:17)
[2022-12-10] MEDS: PROTEIN SUPPLEMENT (PROSTAT) 30 ML LIQUID GT SCH ×2 (09:02→20:18)
[2022-12-10] MEDS: GEMFIBROZIL 600 MG TABLET GT SCH ×2 (09:02→17:13)
[2022-12-10] MEDS: REMEDY ESSENTIAL ZINC PASTE 113 GM TOP SCH ×2 (09:03→20:23)
[2022-12-10] MEDS: NEOMY/BACITRA/POLYMYXIN B OINT UD PACKET TP SCH ×2 (09:03→20:23)
[2022-12-10] MEDS: HYDROGEN PEROXIDE 3% 118 ML BOTTLE TP SCH ×2 (09:04→19:30)
[2022-12-10] MEDS: LACOSAMIDE 100 MG/10 ML UDC GT SCH ×2 (09:08→20:18)
[2022-12-10] MEDS: HEPARIN SODIUM,PORCINE 5,000 UNITS/ML VIAL SQ SCH ×2 (09:09→20:22)
[2022-12-10 19:55] VITALS: TEMP 97.4
[2022-12-10] MEDS: JEVITY 1.2 1000 ML LIQUID GT PRN (22:23)
[2022-12-11] MEDS: ALBUTEROL SULFATE 1.25 MG/3 ML NEBU NEB SCH ×4 (01:45→20:30)
[2022-12-11] MEDS: IPRATROPIUM BROMIDE 0.5 MG/2.5 ML NEBU NEB SCH ×4 (01:45→20:30)
[2022-12-11] MEDS: POLYVINYL ALCOHOL OPHT DROPS 15 ML BOTTLE EACHEYE SCH ×6 (02:00→22:06)
[2022-12-11] MEDS: NUTRISOURCE FIBER 4 GM PACKET GT SCH ×3 (05:41→22:06)
[2022-12-11] MEDS: MINERAL OIL/PETROLAT OPHT OINT 3.5 GM TUBE EACHEYE SCH ×3 (05:41→22:06)
[2022-12-11] MEDS: HYDROGEN PEROXIDE 3% 118 ML BOTTLE TP SCH ×2 (07:44→20:53)
[2022-12-11] MEDS: ACETYLCYSTEINE 10% 4ML VIAL NEB SCH ×2 (07:44→20:30)
[2022-12-11 08:00] VITALS: TEMP 97.6
[2022-12-11] MEDS: REMEDY ESSENTIAL ZINC PASTE 113 GM TOP SCH ×2 (09:00→20:20)
[2022-12-11] MEDS: NEOMY/BACITRA/POLYMYXIN B OINT UD PACKET TP SCH (09:00)
[2022-12-11] MEDS: HEPARIN SODIUM,PORCINE 5,000 UNITS/ML VIAL SQ SCH ×2 (09:00→21:00)
[2022-12-11] MEDS: DOCUSATE SODIUM 100 MG/10 ML LIQUID UDC GT SCH ×2 (09:50→20:11)
[2022-12-11] MEDS: GEMFIBROZIL 600 MG TABLET GT SCH ×2 (09:53→17:55)
[2022-12-11] MEDS: levETIRAcetam 500 MG/5 ML LIQUID UDC GT SCH ×2 (09:53→20:11)
[2022-12-11] MEDS: PROTEIN SUPPLEMENT (PROSTAT) 30 ML LIQUID GT SCH ×2 (09:54→20:14)
[2022-12-11] MEDS: LACOSAMIDE 100 MG/10 ML UDC GT SCH ×2 (09:54→20:14)
[2022-12-11] MEDS: CLONAZEPAM 0.5 MG TABLET GT SCH ×2 (12:55)
[2022-12-11 20:05] VITALS: TEMP 97.5
[2022-12-12] MEDS: CLONAZEPAM 0.5 MG TABLET GT SCH ×2 (00:56→12:01)
[2022-12-12] MEDS: JEVITY 1.2 1000 ML LIQUID GT PRN (01:15)
[2022-12-12] MEDS: ALBUTEROL SULFATE 1.25 MG/3 ML NEBU NEB SCH ×4 (01:28→20:27)
[2022-12-12] MEDS: IPRATROPIUM BROMIDE 0.5 MG/2.5 ML NEBU NEB SCH ×4 (01:28→20:26)
[2022-12-12] MEDS: POLYVINYL ALCOHOL OPHT DROPS 15 ML BOTTLE EACHEYE SCH ×6 (02:00→21:39)
[2022-12-12] MEDS: NUTRISOURCE FIBER 4 GM PACKET GT SCH ×3 (05:04→21:40)
[2022-12-12] MEDS: MINERAL OIL/PETROLAT OPHT OINT 3.5 GM TUBE EACHEYE SCH ×3 (05:04→21:39)
[2022-12-12] MEDS: ACETYLCYSTEINE 10% 4ML VIAL NEB SCH ×2 (07:11→20:26)
[2022-12-12 07:43] VITALS: TEMP 98.5
[2022-12-12] MEDS: HYDROGEN PEROXIDE 3% 118 ML BOTTLE TP SCH ×2 (08:34→20:27)
[2022-12-12] MEDS: HEPARIN SODIUM,PORCINE 5,000 UNITS/ML VIAL SQ SCH ×2 (08:56→21:44)
[2022-12-12] MEDS: BISACODYL 10 MG SUPP.RECT RC SCH (08:58)
[2022-12-12] MEDS: REMEDY ESSENTIAL ZINC PASTE 113 GM TOP SCH ×2 (08:58→21:39)
[2022-12-12] MEDS: levETIRAcetam 500 MG/5 ML LIQUID UDC GT SCH ×2 (08:58→21:39)
[2022-12-12] MEDS: DOCUSATE SODIUM 100 MG/10 ML LIQUID UDC GT SCH ×2 (08:58→21:39)
[2022-12-12] MEDS: PROTEIN SUPPLEMENT (PROSTAT) 30 ML LIQUID GT SCH ×2 (08:58→21:39)
[2022-12-12] MEDS: GEMFIBROZIL 600 MG TABLET GT SCH ×2 (08:58→17:25)
[2022-12-12] MEDS: LACOSAMIDE 100 MG/10 ML UDC GT SCH ×2 (08:58→21:39)
[2022-12-12 20:03] VITALS: TEMP 97.4
[2022-12-13] MEDS: CLONAZEPAM 0.5 MG TABLET GT SCH ×2 (00:30→12:12)
[2022-12-13] MEDS: IPRATROPIUM BROMIDE 0.5 MG/2.5 ML NEBU NEB SCH ×4 (01:41→19:35)
[2022-12-13] MEDS: ALBUTEROL SULFATE 1.25 MG/3 ML NEBU NEB SCH ×4 (01:41→19:35)
[2022-12-13] MEDS: POLYVINYL ALCOHOL OPHT DROPS 15 ML BOTTLE EACHEYE SCH ×6 (02:00→22:50)
[2022-12-13] MEDS: JEVITY 1.2 1000 ML LIQUID GT PRN (04:00)
[2022-12-13] MEDS: NUTRISOURCE FIBER 4 GM PACKET GT SCH ×3 (05:45→22:50)
[2022-12-13] MEDS: MINERAL OIL/PETROLAT OPHT OINT 3.5 GM TUBE EACHEYE SCH ×3 (05:45→22:50)
[2022-12-13] MEDS: HYDROGEN PEROXIDE 3% 118 ML BOTTLE TP SCH ×2 (07:25→21:00)
[2022-12-13] MEDS: ACETYLCYSTEINE 10% 4ML VIAL NEB SCH ×2 (07:25→19:35)
[2022-12-13 08:00] VITALS: TEMP 97.8
[2022-12-13] MEDS: HEPARIN SODIUM,PORCINE 5,000 UNITS/ML VIAL SQ SCH ×2 (08:04→21:44)
[2022-12-13] MEDS: DOCUSATE SODIUM 100 MG/10 ML LIQUID UDC GT SCH ×2 (08:06→20:13)
[2022-12-13] MEDS: levETIRAcetam 500 MG/5 ML LIQUID UDC GT SCH ×2 (08:06→20:13)
[2022-12-13] MEDS: GEMFIBROZIL 600 MG TABLET GT SCH ×2 (08:06→17:02)
[2022-12-13] MEDS: PROTEIN SUPPLEMENT (PROSTAT) 30 ML LIQUID GT SCH ×2 (08:06→20:13)
[2022-12-13] MEDS: REMEDY ESSENTIAL ZINC PASTE 113 GM TOP SCH ×2 (08:06→20:13)
[2022-12-13] MEDS: LACOSAMIDE 100 MG/10 ML UDC GT SCH ×2 (08:06→20:13)
[2022-12-13 20:54] VITALS: TEMP 98.1
[2022-12-14] MEDS: CLONAZEPAM 0.5 MG TABLET GT SCH ×2 (00:20→12:20)
[2022-12-14] MEDS: IPRATROPIUM BROMIDE 0.5 MG/2.5 ML NEBU NEB SCH ×4 (01:24→19:25)
[2022-12-14] MEDS: ALBUTEROL SULFATE 1.25 MG/3 ML NEBU NEB SCH ×4 (01:24→19:25)
[2022-12-14] MEDS: POLYVINYL ALCOHOL OPHT DROPS 15 ML BOTTLE EACHEYE SCH ×6 (02:00→21:06)
[2022-12-14] MEDS: JEVITY 1.2 1000 ML LIQUID GT PRN (04:00)
[2022-12-14] MEDS: MINERAL OIL/PETROLAT OPHT OINT 3.5 GM TUBE EACHEYE SCH ×3 (05:36→21:06)
[2022-12-14] MEDS: NUTRISOURCE FIBER 4 GM PACKET GT SCH ×3 (05:36→21:07)
[2022-12-14 07:53] VITALS: TEMP 97.6
[2022-12-14] MEDS: ACETYLCYSTEINE 10% 4ML VIAL NEB SCH ×2 (08:33→14:00)
[2022-12-14] MEDS: HYDROGEN PEROXIDE 3% 118 ML BOTTLE TP SCH ×2 (09:00→21:05)
[2022-12-14] MEDS: PROTEIN SUPPLEMENT (PROSTAT) 30 ML LIQUID GT SCH ×2 (09:17→21:05)
[2022-12-14] MEDS: LACOSAMIDE 100 MG/10 ML UDC GT SCH ×2 (09:17→21:12)
[2022-12-14] MEDS: DOCUSATE SODIUM 100 MG/10 ML LIQUID UDC GT SCH ×2 (09:17→21:05)
[2022-12-14] MEDS: GEMFIBROZIL 600 MG TABLET GT SCH ×2 (09:17→17:36)
[2022-12-14] MEDS: levETIRAcetam 500 MG/5 ML LIQUID UDC GT SCH ×2 (09:17→21:05)
[2022-12-14] MEDS: BISACODYL 10 MG SUPP.RECT RC SCH (09:17)
[2022-12-14] MEDS: REMEDY ESSENTIAL ZINC PASTE 113 GM TOP SCH ×2 (09:20→21:06)
[2022-12-14] MEDS: HEPARIN SODIUM,PORCINE 5,000 UNITS/ML VIAL SQ SCH ×2 (09:20→21:00)
[2022-12-14 21:00] VITALS: TEMP 97.8
[2022-12-15] MEDS: CLONAZEPAM 0.5 MG TABLET GT SCH ×2 (00:46→12:00)
[2022-12-15] MEDS: IPRATROPIUM BROMIDE 0.5 MG/2.5 ML NEBU NEB SCH ×4 (01:00→19:17)
[2022-12-15] MEDS: ALBUTEROL SULFATE 1.25 MG/3 ML NEBU NEB SCH ×4 (01:00→19:17)
[2022-12-15] MEDS: POLYVINYL ALCOHOL OPHT DROPS 15 ML BOTTLE EACHEYE SCH ×6 (02:15→22:00)
[2022-12-15] MEDS: NUTRISOURCE FIBER 4 GM PACKET GT SCH ×3 (05:38→22:00)
[2022-12-15] MEDS: MINERAL OIL/PETROLAT OPHT OINT 3.5 GM TUBE EACHEYE SCH ×3 (05:38→22:00)
[2022-12-15] MEDS: HYDROGEN PEROXIDE 3% 118 ML BOTTLE TP SCH ×2 (07:44→21:00)
[2022-12-15] MEDS: ACETYLCYSTEINE 10% 4ML VIAL NEB SCH ×2 (07:44→19:17)
[2022-12-15 07:50] VITALS: TEMP 97.5
[2022-12-15] MEDS: levETIRAcetam 500 MG/5 ML LIQUID UDC GT SCH ×2 (09:00→20:18)
[2022-12-15] MEDS: LACOSAMIDE 100 MG/10 ML UDC GT SCH ×2 (09:00→20:29)
[2022-12-15] MEDS: HEPARIN SODIUM,PORCINE 5,000 UNITS/ML VIAL SQ SCH ×2 (09:00→20:24)
[2022-12-15] MEDS: REMEDY ESSENTIAL ZINC PASTE 113 GM TOP SCH ×2 (09:00→20:18)
[2022-12-15] MEDS: DOCUSATE SODIUM 100 MG/10 ML LIQUID UDC GT SCH ×2 (09:53→20:18)
[2022-12-15] MEDS: GEMFIBROZIL 600 MG TABLET GT SCH ×2 (09:54→17:15)
[2022-12-15] MEDS: PROTEIN SUPPLEMENT (PROSTAT) 30 ML LIQUID GT SCH ×2 (09:57→20:18)
[2022-12-15 21:54] VITALS: TEMP 96.2
[2022-12-16] MEDS: CLONAZEPAM 0.5 MG TABLET GT SCH ×2 (00:25→12:37)
[2022-12-16] MEDS: ALBUTEROL SULFATE 1.25 MG/3 ML NEBU NEB SCH ×4 (01:40→19:25)
[2022-12-16] MEDS: IPRATROPIUM BROMIDE 0.5 MG/2.5 ML NEBU NEB SCH ×4 (01:40→19:25)
[2022-12-16] MEDS: POLYVINYL ALCOHOL OPHT DROPS 15 ML BOTTLE EACHEYE SCH ×6 (02:00→22:00)
[2022-12-16] MEDS: MINERAL OIL/PETROLAT OPHT OINT 3.5 GM TUBE EACHEYE SCH ×3 (06:44→22:00)
[2022-12-16] MEDS: NUTRISOURCE FIBER 4 GM PACKET GT SCH ×3 (06:44→22:00)
[2022-12-16] MEDS: ACETYLCYSTEINE 10% 4ML VIAL NEB SCH ×2 (07:23→19:25)
[2022-12-16 07:59] VITALS: TEMP 97.5
[2022-12-16] MEDS: HEPARIN SODIUM,PORCINE 5,000 UNITS/ML VIAL SQ SCH ×2 (08:44→20:31)
[2022-12-16] MEDS: DOCUSATE SODIUM 100 MG/10 ML LIQUID UDC GT SCH ×2 (08:44→20:10)
[2022-12-16] MEDS: PROTEIN SUPPLEMENT (PROSTAT) 30 ML LIQUID GT SCH ×2 (08:44→20:12)
[2022-12-16] MEDS: levETIRAcetam 500 MG/5 ML LIQUID UDC GT SCH ×2 (08:44→20:11)
[2022-12-16] MEDS: LACOSAMIDE 100 MG/10 ML UDC GT SCH ×2 (08:44→20:12)
[2022-12-16] MEDS: GEMFIBROZIL 600 MG TABLET GT SCH ×2 (08:44→17:00)
[2022-12-16] MEDS: REMEDY ESSENTIAL ZINC PASTE 113 GM TOP SCH ×2 (08:45→20:31)
[2022-12-16] MEDS: HYDROGEN PEROXIDE 3% 118 ML BOTTLE TP SCH ×2 (09:00→20:32)
[2022-12-16] MEDS: JEVITY 1.2 1000 ML LIQUID GT PRN (11:53)
[2022-12-16 20:16] VITALS: TEMP 97.3
[2022-12-17] MEDS: CLONAZEPAM 0.5 MG TABLET GT SCH ×2 (00:01→12:51)
[2022-12-17] MEDS: IPRATROPIUM BROMIDE 0.5 MG/2.5 ML NEBU NEB SCH ×4 (01:29→19:22)
[2022-12-17] MEDS: ALBUTEROL SULFATE 1.25 MG/3 ML NEBU NEB SCH ×4 (01:29→19:22)
[2022-12-17] MEDS: POLYVINYL ALCOHOL OPHT DROPS 15 ML BOTTLE EACHEYE SCH ×6 (02:18→21:39)
[2022-12-17] MEDS: NUTRISOURCE FIBER 4 GM PACKET GT SCH ×3 (05:45→21:39)
[2022-12-17] MEDS: MINERAL OIL/PETROLAT OPHT OINT 3.5 GM TUBE EACHEYE SCH ×3 (05:45→21:39)
[2022-12-17] MEDS: HYDROGEN PEROXIDE 3% 118 ML BOTTLE TP SCH ×2 (07:20→20:37)
[2022-12-17] MEDS: ACETYLCYSTEINE 10% 4ML VIAL NEB SCH ×2 (07:20→19:22)
[2022-12-17 08:00] VITALS: TEMP 97.7
[2022-12-17] MEDS: DOCUSATE SODIUM 100 MG/10 ML LIQUID UDC GT SCH ×2 (09:42→21:30)
[2022-12-17] MEDS: levETIRAcetam 500 MG/5 ML LIQUID UDC GT SCH ×2 (09:43→21:30)
[2022-12-17] MEDS: GEMFIBROZIL 600 MG TABLET GT SCH ×2 (09:43→17:32)
[2022-12-17] MEDS: BISACODYL 10 MG SUPP.RECT RC SCH (09:44)
[2022-12-17] MEDS: PROTEIN SUPPLEMENT (PROSTAT) 30 ML LIQUID GT SCH ×2 (09:44→21:36)
[2022-12-17] MEDS: LACOSAMIDE 100 MG/10 ML UDC GT SCH ×2 (09:44→21:36)
[2022-12-17] MEDS: HEPARIN SODIUM,PORCINE 5,000 UNITS/ML VIAL SQ SCH ×2 (09:45→21:00)
[2022-12-17] MEDS: REMEDY ESSENTIAL ZINC PASTE 113 GM TOP SCH ×2 (09:46→21:37)
[2022-12-17 20:19] VITALS: TEMP 97.6
[2022-12-18] MEDS: CLONAZEPAM 0.5 MG TABLET GT SCH ×2 (00:41→12:18)
[2022-12-18] MEDS: ALBUTEROL SULFATE 1.25 MG/3 ML NEBU NEB SCH ×4 (01:35→19:16)
[2022-12-18] MEDS: IPRATROPIUM BROMIDE 0.5 MG/2.5 ML NEBU NEB SCH ×4 (01:35→19:16)
[2022-12-18] MEDS: POLYVINYL ALCOHOL OPHT DROPS 15 ML BOTTLE EACHEYE SCH ×6 (02:44→21:00)
[2022-12-18] MEDS: NUTRISOURCE FIBER 4 GM PACKET GT SCH ×3 (06:16→21:00)
[2022-12-18] MEDS: MINERAL OIL/PETROLAT OPHT OINT 3.5 GM TUBE EACHEYE SCH ×3 (06:16→21:00)
[2022-12-18] MEDS: ACETYLCYSTEINE 10% 4ML VIAL NEB SCH ×2 (07:30→19:16)
[2022-12-18] MEDS: HYDROGEN PEROXIDE 3% 118 ML BOTTLE TP SCH ×2 (07:30→21:00)
[2022-12-18 08:00] VITALS: TEMP 98
[2022-12-18] MEDS: DOCUSATE SODIUM 100 MG/10 ML LIQUID UDC GT SCH ×2 (08:09→20:57)
[2022-12-18] MEDS: PROTEIN SUPPLEMENT (PROSTAT) 30 ML LIQUID GT SCH ×2 (08:10→20:59)
[2022-12-18] MEDS: levETIRAcetam 500 MG/5 ML LIQUID UDC GT SCH ×2 (08:10→20:59)
[2022-12-18] MEDS: LACOSAMIDE 100 MG/10 ML UDC GT SCH ×2 (08:12→21:03)
[2022-12-18] MEDS: HEPARIN SODIUM,PORCINE 5,000 UNITS/ML VIAL SQ SCH ×2 (08:14→21:03)
[2022-12-18] MEDS: REMEDY ESSENTIAL ZINC PASTE 113 GM TOP SCH ×2 (08:14→20:59)
[2022-12-18] MEDS: GEMFIBROZIL 600 MG TABLET GT SCH ×2 (08:15→17:00)
[2022-12-18 21:39] VITALS: TEMP 97.4
[2022-12-19] MEDS: CLONAZEPAM 0.5 MG TABLET GT SCH ×2 (00:30→12:00)
[2022-12-19] MEDS: IPRATROPIUM BROMIDE 0.5 MG/2.5 ML NEBU NEB SCH ×4 (01:28→20:05)
[2022-12-19] MEDS: ALBUTEROL SULFATE 1.25 MG/3 ML NEBU NEB SCH ×4 (01:28→20:05)
[2022-12-19] MEDS: POLYVINYL ALCOHOL OPHT DROPS 15 ML BOTTLE EACHEYE SCH ×6 (02:00→22:00)
[2022-12-19] MEDS: MINERAL OIL/PETROLAT OPHT OINT 3.5 GM TUBE EACHEYE SCH ×3 (06:32→22:00)
[2022-12-19] MEDS: NUTRISOURCE FIBER 4 GM PACKET GT SCH ×3 (06:32→22:00)
[2022-12-19] MEDS: HYDROGEN PEROXIDE 3% 118 ML BOTTLE TP SCH ×3 (07:09→20:14)
[2022-12-19] MEDS: ACETYLCYSTEINE 10% 4ML VIAL NEB SCH ×2 (07:09→20:05)
[2022-12-19 08:00] VITALS: TEMP 97.8
[2022-12-19] MEDS: DOCUSATE SODIUM 100 MG/10 ML LIQUID UDC GT SCH ×2 (08:09→20:13)
[2022-12-19] MEDS: levETIRAcetam 500 MG/5 ML LIQUID UDC GT SCH ×2 (08:09→20:14)
[2022-12-19] MEDS: GEMFIBROZIL 600 MG TABLET GT SCH ×2 (08:11→17:00)
[2022-12-19] MEDS: BISACODYL 10 MG SUPP.RECT RC SCH (08:13)
[2022-12-19] MEDS: LACOSAMIDE 100 MG/10 ML UDC GT SCH ×2 (08:13→20:14)
[2022-12-19] MEDS: PROTEIN SUPPLEMENT (PROSTAT) 30 ML LIQUID GT SCH ×2 (08:13→20:13)
[2022-12-19] MEDS: REMEDY ESSENTIAL ZINC PASTE 113 GM TOP SCH ×2 (08:14→20:14)
[2022-12-19] MEDS: HEPARIN SODIUM,PORCINE 5,000 UNITS/ML VIAL SQ SCH ×2 (08:14→21:00)
[2022-12-19] MEDS: JEVITY 1.2 1000 ML LIQUID GT PRN (10:30)
[2022-12-19 20:18] VITALS: TEMP 97.8
[2022-12-20] MEDS: CLONAZEPAM 0.5 MG TABLET GT SCH ×2 (00:29→12:09)
[2022-12-20] MEDS: ALBUTEROL SULFATE 1.25 MG/3 ML NEBU NEB SCH ×4 (00:35→19:26)
[2022-12-20] MEDS: IPRATROPIUM BROMIDE 0.5 MG/2.5 ML NEBU NEB SCH ×4 (00:35→19:26)
[2022-12-20] MEDS: POLYVINYL ALCOHOL OPHT DROPS 15 ML BOTTLE EACHEYE SCH ×6 (02:00→22:40)
[2022-12-20] MEDS: MINERAL OIL/PETROLAT OPHT OINT 3.5 GM TUBE EACHEYE SCH ×3 (06:14→22:40)
[2022-12-20] MEDS: NUTRISOURCE FIBER 4 GM PACKET GT SCH ×3 (06:14→22:40)
[2022-12-20] MEDS: HYDROGEN PEROXIDE 3% 118 ML BOTTLE TP SCH ×2 (07:46→19:27)
[2022-12-20] MEDS: ACETYLCYSTEINE 10% 4ML VIAL NEB SCH ×2 (07:46→19:26)
[2022-12-20 08:09] VITALS: TEMP 97.5
[2022-12-20] MEDS: levETIRAcetam 500 MG/5 ML LIQUID UDC GT SCH ×2 (08:32→20:26)
[2022-12-20] MEDS: DOCUSATE SODIUM 100 MG/10 ML LIQUID UDC GT SCH ×2 (08:32→20:26)
[2022-12-20] MEDS: GEMFIBROZIL 600 MG TABLET GT SCH ×2 (08:37→16:56)
[2022-12-20] MEDS: PROTEIN SUPPLEMENT (PROSTAT) 30 ML LIQUID GT SCH ×2 (08:38→20:26)
[2022-12-20] MEDS: HEPARIN SODIUM,PORCINE 5,000 UNITS/ML VIAL SQ SCH ×2 (08:40→21:20)
[2022-12-20] MEDS: REMEDY ESSENTIAL ZINC PASTE 113 GM TOP SCH ×2 (08:40→20:26)
[2022-12-20] MEDS: LACOSAMIDE 100 MG/10 ML UDC GT SCH ×2 (08:42→20:26)
[2022-12-20] MEDS: JEVITY 1.2 1000 ML LIQUID GT PRN (16:27)
[2022-12-20 20:07] VITALS: TEMP 98.5
[2022-12-21] MEDS: CLONAZEPAM 0.5 MG TABLET GT SCH ×2 (00:09→11:37)
[2022-12-21] MEDS: IPRATROPIUM BROMIDE 0.5 MG/2.5 ML NEBU NEB SCH ×4 (01:44→19:25)
[2022-12-21] MEDS: ALBUTEROL SULFATE 1.25 MG/3 ML NEBU NEB SCH ×4 (01:45→19:25)
[2022-12-21] MEDS: POLYVINYL ALCOHOL OPHT DROPS 15 ML BOTTLE EACHEYE SCH ×6 (02:09→21:36)
[2022-12-21] MEDS: NUTRISOURCE FIBER 4 GM PACKET GT SCH ×3 (05:46→21:36)
[2022-12-21] MEDS: MINERAL OIL/PETROLAT OPHT OINT 3.5 GM TUBE EACHEYE SCH ×3 (05:46→21:36)
[2022-12-21] MEDS: ACETYLCYSTEINE 10% 4ML VIAL NEB SCH ×2 (07:40→19:25)
[2022-12-21 07:48] VITALS: TEMP 98.1
[2022-12-21] MEDS: DOCUSATE SODIUM 100 MG/10 ML LIQUID UDC GT SCH ×2 (08:34→20:14)
[2022-12-21] MEDS: GEMFIBROZIL 600 MG TABLET GT SCH ×2 (08:35→17:44)
[2022-12-21] MEDS: levETIRAcetam 500 MG/5 ML LIQUID UDC GT SCH ×2 (08:35→20:14)
[2022-12-21] MEDS: LACOSAMIDE 100 MG/10 ML UDC GT SCH ×2 (08:36→20:14)
[2022-12-21] MEDS: REMEDY ESSENTIAL ZINC PASTE 113 GM TOP SCH ×2 (08:36→20:14)
[2022-12-21] MEDS: BISACODYL 10 MG SUPP.RECT RC SCH (08:36)
[2022-12-21] MEDS: PROTEIN SUPPLEMENT (PROSTAT) 30 ML LIQUID GT SCH ×2 (08:36→20:14)
[2022-12-21] MEDS: HEPARIN SODIUM,PORCINE 5,000 UNITS/ML VIAL SQ SCH ×2 (08:44→20:16)
[2022-12-21] MEDS: JEVITY 1.2 1000 ML LIQUID GT PRN (17:45)
[2022-12-21 20:18] VITALS: TEMP 97.6
[2022-12-21] MEDS: HYDROGEN PEROXIDE 3% 118 ML BOTTLE TP SCH (21:00)
[2022-12-22] MEDS: IPRATROPIUM BROMIDE 0.5 MG/2.5 ML NEBU NEB SCH ×4 (01:40→19:40)
[2022-12-22] MEDS: POLYVINYL ALCOHOL OPHT DROPS 15 ML BOTTLE EACHEYE SCH ×6 (01:44→21:45)
[2022-12-22] MEDS: ALBUTEROL SULFATE 1.25 MG/3 ML NEBU NEB SCH ×4 (01:45→19:40)
[2022-12-22] MEDS: NUTRISOURCE FIBER 4 GM PACKET GT SCH ×3 (05:12→21:50)
[2022-12-22] MEDS: MINERAL OIL/PETROLAT OPHT OINT 3.5 GM TUBE EACHEYE SCH ×3 (05:12→21:46)
[2022-12-22] MEDS: ACETYLCYSTEINE 10% 4ML VIAL NEB SCH ×2 (07:20→19:40)
[2022-12-22 07:49] VITALS: TEMP 97.4
[2022-12-22] MEDS: DOCUSATE SODIUM 100 MG/10 ML LIQUID UDC GT SCH ×2 (08:44→20:05)
[2022-12-22] MEDS: levETIRAcetam 500 MG/5 ML LIQUID UDC GT SCH ×2 (08:45→20:05)
[2022-12-22] MEDS: GEMFIBROZIL 600 MG TABLET GT SCH ×2 (08:47→17:42)
[2022-12-22] MEDS: PROTEIN SUPPLEMENT (PROSTAT) 30 ML LIQUID GT SCH ×2 (08:49→20:05)
[2022-12-22] MEDS: HEPARIN SODIUM,PORCINE 5,000 UNITS/ML VIAL SQ SCH ×2 (08:51→21:45)
[2022-12-22] MEDS: REMEDY ESSENTIAL ZINC PASTE 113 GM TOP SCH ×2 (08:52→20:05)
[2022-12-22] MEDS: HYDROGEN PEROXIDE 3% 118 ML BOTTLE TP SCH ×2 (08:58→21:14)
[2022-12-22] MEDS: LACOSAMIDE 100 MG/10 ML UDC GT SCH ×2 (09:18→20:05)
[2022-12-22] MEDS: CLOBAZAM 2.5 MG/ML GT SCH (09:18)
[2022-12-22] MEDS: JEVITY 1.2 1000 ML LIQUID GT PRN (18:55)
[2022-12-22 20:36] VITALS: TEMP 98.6
[2022-12-23] MEDS: IPRATROPIUM BROMIDE 0.5 MG/2.5 ML NEBU NEB SCH ×4 (00:48→20:25)
[2022-12-23] MEDS: ALBUTEROL SULFATE 1.25 MG/3 ML NEBU NEB SCH ×4 (00:48→20:25)
[2022-12-23] MEDS: POLYVINYL ALCOHOL OPHT DROPS 15 ML BOTTLE EACHEYE SCH ×6 (02:00→21:16)
[2022-12-23] MEDS: NUTRISOURCE FIBER 4 GM PACKET GT SCH ×3 (05:34→21:16)
[2022-12-23] MEDS: MINERAL OIL/PETROLAT OPHT OINT 3.5 GM TUBE EACHEYE SCH ×3 (05:34→21:16)
[2022-12-23] MEDS: ACETYLCYSTEINE 10% 4ML VIAL NEB SCH ×2 (07:37→20:25)
[2022-12-23 08:00] VITALS: TEMP 98.1
[2022-12-23] MEDS: DOCUSATE SODIUM 100 MG/10 ML LIQUID UDC GT SCH ×2 (08:52→20:25)
[2022-12-23] MEDS: levETIRAcetam 500 MG/5 ML LIQUID UDC GT SCH ×2 (08:52→20:26)
[2022-12-23] MEDS: GEMFIBROZIL 600 MG TABLET GT SCH ×2 (08:53→17:29)
[2022-12-23] MEDS: PROTEIN SUPPLEMENT (PROSTAT) 30 ML LIQUID GT SCH ×2 (08:54→20:26)
[2022-12-23] MEDS: LACOSAMIDE 100 MG/10 ML UDC GT SCH ×2 (09:03→20:26)
[2022-12-23] MEDS: CLOBAZAM 2.5 MG/ML GT SCH (09:03)
[2022-12-23] MEDS: HEPARIN SODIUM,PORCINE 5,000 UNITS/ML VIAL SQ SCH ×2 (09:08→20:31)
[2022-12-23] MEDS: REMEDY ESSENTIAL ZINC PASTE 113 GM TOP SCH ×2 (09:08→20:32)
[2022-12-23] MEDS: HYDROGEN PEROXIDE 3% 118 ML BOTTLE TP SCH ×2 (09:57→21:00)
[2022-12-23 20:27] VITALS: TEMP 97.7
[2022-12-23] MEDS: JEVITY 1.2 1000 ML LIQUID GT PRN (20:48)
[2022-12-24] MEDS: IPRATROPIUM BROMIDE 0.5 MG/2.5 ML NEBU NEB SCH ×4 (01:45→19:20)
[2022-12-24] MEDS: ALBUTEROL SULFATE 1.25 MG/3 ML NEBU NEB SCH ×4 (01:45→19:20)
[2022-12-24] MEDS: POLYVINYL ALCOHOL OPHT DROPS 15 ML BOTTLE EACHEYE SCH ×6 (02:00→22:28)
[2022-12-24] MEDS: NUTRISOURCE FIBER 4 GM PACKET GT SCH ×3 (06:00→22:28)
[2022-12-24] MEDS: MINERAL OIL/PETROLAT OPHT OINT 3.5 GM TUBE EACHEYE SCH ×3 (06:00→22:28)
[2022-12-24] MEDS: ACETYLCYSTEINE 10% 4ML VIAL NEB SCH ×2 (07:10→19:20)
[2022-12-24 08:00] VITALS: TEMP 97.9
[2022-12-24] MEDS: DOCUSATE SODIUM 100 MG/10 ML LIQUID UDC GT SCH ×2 (09:00→20:16)
[2022-12-24] MEDS: BISACODYL 10 MG SUPP.RECT RC SCH (09:00)
[2022-12-24] MEDS: LACOSAMIDE 100 MG/10 ML UDC GT SCH ×2 (09:00→20:23)
[2022-12-24] MEDS: CLOBAZAM 2.5 MG/ML GT SCH (09:00)
[2022-12-24] MEDS: HEPARIN SODIUM,PORCINE 5,000 UNITS/ML VIAL SQ SCH ×2 (09:00→20:25)
[2022-12-24] MEDS: PROTEIN SUPPLEMENT (PROSTAT) 30 ML LIQUID GT SCH ×2 (09:00→20:16)
[2022-12-24] MEDS: GEMFIBROZIL 600 MG TABLET GT SCH ×2 (09:00→16:54)
[2022-12-24] MEDS: REMEDY ESSENTIAL ZINC PASTE 113 GM TOP SCH ×2 (09:00→20:17)
[2022-12-24] MEDS: levETIRAcetam 500 MG/5 ML LIQUID UDC GT SCH ×2 (09:00→20:16)
[2022-12-24] MEDS: HYDROGEN PEROXIDE 3% 118 ML BOTTLE TP SCH ×2 (09:07→19:20)
[2022-12-24 20:10] VITALS: TEMP 97.7
[2022-12-25] MEDS: ALBUTEROL SULFATE 1.25 MG/3 ML NEBU NEB SCH ×4 (01:35→19:26)
[2022-12-25] MEDS: IPRATROPIUM BROMIDE 0.5 MG/2.5 ML NEBU NEB SCH ×4 (01:35→19:26)
[2022-12-25] MEDS: POLYVINYL ALCOHOL OPHT DROPS 15 ML BOTTLE EACHEYE SCH ×6 (02:00→21:58)
[2022-12-25] MEDS: MINERAL OIL/PETROLAT OPHT OINT 3.5 GM TUBE EACHEYE SCH ×3 (05:05→21:59)
[2022-12-25] MEDS: NUTRISOURCE FIBER 4 GM PACKET GT SCH ×3 (05:05→21:59)
[2022-12-25 08:00] VITALS: TEMP 97.7
[2022-12-25] MEDS: ACETYLCYSTEINE 10% 4ML VIAL NEB SCH ×2 (08:07→19:26)
[2022-12-25] MEDS: HYDROGEN PEROXIDE 3% 118 ML BOTTLE TP SCH ×2 (08:07→21:00)
[2022-12-25] MEDS: HEPARIN SODIUM,PORCINE 5,000 UNITS/ML VIAL SQ SCH ×2 (08:59→20:29)
[2022-12-25] MEDS: DOCUSATE SODIUM 100 MG/10 ML LIQUID UDC GT SCH ×2 (08:59→20:28)
[2022-12-25] MEDS: PROTEIN SUPPLEMENT (PROSTAT) 30 ML LIQUID GT SCH ×2 (08:59→20:28)
[2022-12-25] MEDS: CLOBAZAM 2.5 MG/ML GT SCH (08:59)
[2022-12-25] MEDS: levETIRAcetam 500 MG/5 ML LIQUID UDC GT SCH ×2 (08:59→20:28)
[2022-12-25] MEDS: GEMFIBROZIL 600 MG TABLET GT SCH ×2 (08:59→17:12)
[2022-12-25] MEDS: REMEDY ESSENTIAL ZINC PASTE 113 GM TOP SCH ×2 (08:59→20:29)
[2022-12-25] MEDS: LACOSAMIDE 100 MG/10 ML UDC GT SCH ×2 (08:59→20:28)
[2022-12-25 20:18] VITALS: TEMP 98.6
[2022-12-26] MEDS: IPRATROPIUM BROMIDE 0.5 MG/2.5 ML NEBU NEB SCH ×4 (01:47→19:22)
[2022-12-26] MEDS: ALBUTEROL SULFATE 1.25 MG/3 ML NEBU NEB SCH ×4 (01:47→19:23)
[2022-12-26] MEDS: POLYVINYL ALCOHOL OPHT DROPS 15 ML BOTTLE EACHEYE SCH ×6 (02:00→22:00)
[2022-12-26] MEDS: NUTRISOURCE FIBER 4 GM PACKET GT SCH ×3 (06:33→22:00)
[2022-12-26] MEDS: MINERAL OIL/PETROLAT OPHT OINT 3.5 GM TUBE EACHEYE SCH ×3 (06:33→22:00)
[2022-12-26] MEDS: ACETYLCYSTEINE 10% 4ML VIAL NEB SCH ×2 (07:04→19:23)
[2022-12-26 07:36] VITALS: TEMP 98.2
[2022-12-26] MEDS: DOCUSATE SODIUM 100 MG/10 ML LIQUID UDC GT SCH ×2 (09:10→20:36)
[2022-12-26] MEDS: levETIRAcetam 500 MG/5 ML LIQUID UDC GT SCH ×2 (09:11→20:36)
[2022-12-26] MEDS: GEMFIBROZIL 600 MG TABLET GT SCH ×2 (09:11→17:00)
[2022-12-26] MEDS: PROTEIN SUPPLEMENT (PROSTAT) 30 ML LIQUID GT SCH ×2 (09:12→20:36)
[2022-12-26] MEDS: LACOSAMIDE 100 MG/10 ML UDC GT SCH ×2 (09:12→20:36)
[2022-12-26] MEDS: HYDROGEN PEROXIDE 3% 118 ML BOTTLE TP SCH ×2 (09:13→19:23)
[2022-12-26] MEDS: BISACODYL 10 MG SUPP.RECT RC SCH (09:14)
[2022-12-26] MEDS: HEPARIN SODIUM,PORCINE 5,000 UNITS/ML VIAL SQ SCH ×2 (09:15→20:37)
[2022-12-26] MEDS: REMEDY ESSENTIAL ZINC PASTE 113 GM TOP SCH ×2 (09:16→20:37)
[2022-12-26] MEDS: CLOBAZAM 2.5 MG/ML GT SCH (09:16)
[2022-12-26 20:23] VITALS: TEMP 98.8
[2022-12-27] MEDS: ALBUTEROL SULFATE 1.25 MG/3 ML NEBU NEB SCH ×4 (01:01→19:30)
[2022-12-27] MEDS: IPRATROPIUM BROMIDE 0.5 MG/2.5 ML NEBU NEB SCH ×4 (01:01→19:30)
[2022-12-27] MEDS: POLYVINYL ALCOHOL OPHT DROPS 15 ML BOTTLE EACHEYE SCH ×6 (01:07→20:13)
[2022-12-27] MEDS: MINERAL OIL/PETROLAT OPHT OINT 3.5 GM TUBE EACHEYE SCH ×3 (06:25→20:13)
[2022-12-27] MEDS: NUTRISOURCE FIBER 4 GM PACKET GT SCH ×3 (06:26→20:13)
[2022-12-27 07:40] VITALS: TEMP 97.8
[2022-12-27] MEDS: ACETYLCYSTEINE 10% 4ML VIAL NEB SCH ×2 (08:12→19:30)
[2022-12-27] MEDS: HYDROGEN PEROXIDE 3% 118 ML BOTTLE TP SCH ×2 (08:13→19:30)
[2022-12-27] MEDS: DOCUSATE SODIUM 100 MG/10 ML LIQUID UDC GT SCH ×2 (09:20→20:12)
[2022-12-27] MEDS: levETIRAcetam 500 MG/5 ML LIQUID UDC GT SCH ×2 (09:22→20:12)
[2022-12-27] MEDS: GEMFIBROZIL 600 MG TABLET GT SCH ×2 (09:23→17:32)
[2022-12-27] MEDS: PROTEIN SUPPLEMENT (PROSTAT) 30 ML LIQUID GT SCH ×2 (09:24→20:12)
[2022-12-27] MEDS: CLOBAZAM 2.5 MG/ML GT SCH (09:29)
[2022-12-27] MEDS: LACOSAMIDE 100 MG/10 ML UDC GT SCH ×2 (09:29→20:12)
[2022-12-27] MEDS: HEPARIN SODIUM,PORCINE 5,000 UNITS/ML VIAL SQ SCH ×2 (09:34→20:18)
[2022-12-27] MEDS: REMEDY ESSENTIAL ZINC PASTE 113 GM TOP SCH ×2 (09:35→20:12)
[2022-12-27 18:53] VITALS: O2SAT 99
[2022-12-27 19:06] VITALS: O2SAT 99
[2022-12-27 20:00] VITALS: TEMP 97.9
[2022-12-28] MEDS: ALBUTEROL SULFATE 1.25 MG/3 ML NEBU NEB SCH ×4 (01:08→21:37)
[2022-12-28] MEDS: IPRATROPIUM BROMIDE 0.5 MG/2.5 ML NEBU NEB SCH ×4 (01:08→21:37)
[2022-12-28] MEDS: POLYVINYL ALCOHOL OPHT DROPS 15 ML BOTTLE EACHEYE SCH ×6 (01:49→22:34)
[2022-12-28] MEDS: NUTRISOURCE FIBER 4 GM PACKET GT SCH ×3 (05:14→22:05)
[2022-12-28] MEDS: MINERAL OIL/PETROLAT OPHT OINT 3.5 GM TUBE EACHEYE SCH ×3 (05:14→22:05)
[2022-12-28] MEDS: HYDROGEN PEROXIDE 3% 118 ML BOTTLE TP SCH ×2 (07:45→21:38)
[2022-12-28] MEDS: ACETYLCYSTEINE 10% 4ML VIAL NEB SCH ×2 (07:45→21:37)
[2022-12-28] MEDS: HEPARIN SODIUM,PORCINE 5,000 UNITS/ML VIAL SQ SCH ×2 (08:33→21:00)
[2022-12-28] MEDS: DOCUSATE SODIUM 100 MG/10 ML LIQUID UDC GT SCH ×2 (08:46→20:30)
[2022-12-28] MEDS: PROTEIN SUPPLEMENT (PROSTAT) 30 ML LIQUID GT SCH ×2 (08:48→20:32)
[2022-12-28] MEDS: LACOSAMIDE 100 MG/10 ML UDC GT SCH ×2 (08:48→20:33)
[2022-12-28] MEDS: GEMFIBROZIL 600 MG TABLET GT SCH ×2 (08:48→17:23)
[2022-12-28] MEDS: levETIRAcetam 500 MG/5 ML LIQUID UDC GT SCH ×2 (08:48→20:32)
[2022-12-28] MEDS: CLOBAZAM 2.5 MG/ML GT SCH (08:48)
[2022-12-28] MEDS: BISACODYL 10 MG SUPP.RECT RC SCH (08:48)
[2022-12-28] MEDS: REMEDY ESSENTIAL ZINC PASTE 113 GM TOP SCH ×2 (08:48→20:33)
[2022-12-28 20:00] VITALS: TEMP 98.1
[2022-12-29] MEDS: IPRATROPIUM BROMIDE 0.5 MG/2.5 ML NEBU NEB SCH ×4 (01:18→19:30)
[2022-12-29] MEDS: ALBUTEROL SULFATE 1.25 MG/3 ML NEBU NEB SCH ×4 (01:18→19:30)
[2022-12-29] MEDS: POLYVINYL ALCOHOL OPHT DROPS 15 ML BOTTLE EACHEYE SCH ×6 (02:00→21:06)
[2022-12-29] MEDS: NUTRISOURCE FIBER 4 GM PACKET GT SCH ×3 (05:00→21:06)
[2022-12-29] MEDS: MINERAL OIL/PETROLAT OPHT OINT 3.5 GM TUBE EACHEYE SCH ×3 (05:00→21:06)
[2022-12-29] MEDS: ACETYLCYSTEINE 10% 4ML VIAL NEB SCH ×2 (07:35→19:30)
[2022-12-29 08:00] VITALS: TEMP 97
[2022-12-29] MEDS: levETIRAcetam 500 MG/5 ML LIQUID UDC GT SCH ×2 (09:04→20:44)
[2022-12-29] MEDS: DOCUSATE SODIUM 100 MG/10 ML LIQUID UDC GT SCH ×2 (09:04→20:42)
[2022-12-29] MEDS: PROTEIN SUPPLEMENT (PROSTAT) 30 ML LIQUID GT SCH ×2 (09:04→20:44)
[2022-12-29] MEDS: CLOBAZAM 2.5 MG/ML GT SCH (09:04)
[2022-12-29] MEDS: GEMFIBROZIL 600 MG TABLET GT SCH ×2 (09:04→17:00)
[2022-12-29] MEDS: LACOSAMIDE 100 MG/10 ML UDC GT SCH ×2 (09:04→21:00)
[2022-12-29] MEDS: REMEDY ESSENTIAL ZINC PASTE 113 GM TOP SCH ×2 (09:05→20:52)
[2022-12-29] MEDS: HEPARIN SODIUM,PORCINE 5,000 UNITS/ML VIAL SQ SCH ×2 (09:05→21:00)
[2022-12-29] MEDS: HYDROGEN PEROXIDE 3% 118 ML BOTTLE TP SCH ×2 (09:49→21:00)
[2022-12-29] MEDS: JEVITY 1.2 1000 ML LIQUID GT PRN (11:37)
[2022-12-29 20:00] VITALS: TEMP 98.1
[2022-12-30] MEDS: IPRATROPIUM BROMIDE 0.5 MG/2.5 ML NEBU NEB SCH ×4 (01:28→19:15)
[2022-12-30] MEDS: ALBUTEROL SULFATE 1.25 MG/3 ML NEBU NEB SCH ×4 (01:28→19:15)
[2022-12-30] MEDS: POLYVINYL ALCOHOL OPHT DROPS 15 ML BOTTLE EACHEYE SCH ×6 (02:00→21:07)
[2022-12-30] MEDS: MINERAL OIL/PETROLAT OPHT OINT 3.5 GM TUBE EACHEYE SCH ×3 (05:09→21:06)
[2022-12-30] MEDS: NUTRISOURCE FIBER 4 GM PACKET GT SCH ×3 (05:09→21:06)
[2022-12-30] MEDS: ACETYLCYSTEINE 10% 4ML VIAL NEB SCH ×2 (07:17→19:15)
[2022-12-30] MEDS: HYDROGEN PEROXIDE 3% 118 ML BOTTLE TP SCH ×2 (07:18→20:43)
[2022-12-30 08:05] VITALS: TEMP 98.7
[2022-12-30] MEDS: PROTEIN SUPPLEMENT (PROSTAT) 30 ML LIQUID GT SCH ×2 (09:19→21:08)
[2022-12-30] MEDS: levETIRAcetam 500 MG/5 ML LIQUID UDC GT SCH ×2 (09:19→21:08)
[2022-12-30] MEDS: DOCUSATE SODIUM 100 MG/10 ML LIQUID UDC GT SCH ×2 (09:19→21:08)
[2022-12-30] MEDS: CLOBAZAM 2.5 MG/ML GT SCH (09:19)
[2022-12-30] MEDS: REMEDY ESSENTIAL ZINC PASTE 113 GM TOP SCH ×2 (09:19→21:07)
[2022-12-30] MEDS: GEMFIBROZIL 600 MG TABLET GT SCH ×2 (09:19→16:47)
[2022-12-30] MEDS: HEPARIN SODIUM,PORCINE 5,000 UNITS/ML VIAL SQ SCH ×2 (09:19→21:13)
[2022-12-30] MEDS: LACOSAMIDE 100 MG/10 ML UDC GT SCH ×2 (09:19→21:24)
[2022-12-30] MEDS: JEVITY 1.2 1000 ML LIQUID GT PRN (12:06)
[2022-12-30 20:22] VITALS: TEMP 99.4
[2022-12-30 20:23] VITALS: TEMP 99.4
[2022-12-31] MEDS: IPRATROPIUM BROMIDE 0.5 MG/2.5 ML NEBU NEB SCH ×4 (00:40→19:03)
[2022-12-31] MEDS: ALBUTEROL SULFATE 1.25 MG/3 ML NEBU NEB SCH ×4 (00:40→19:03)
[2022-12-31] MEDS: POLYVINYL ALCOHOL OPHT DROPS 15 ML BOTTLE EACHEYE SCH ×6 (02:00→22:59)
[2022-12-31] MEDS: MINERAL OIL/PETROLAT OPHT OINT 3.5 GM TUBE EACHEYE SCH ×3 (05:32→23:00)
[2022-12-31] MEDS: NUTRISOURCE FIBER 4 GM PACKET GT SCH ×3 (05:33→22:00)
[2022-12-31] MEDS: ACETYLCYSTEINE 10% 4ML VIAL NEB SCH ×2 (07:42→19:03)
[2022-12-31 08:00] VITALS: TEMP 97.8
[2022-12-31] MEDS: HYDROGEN PEROXIDE 3% 118 ML BOTTLE TP SCH ×2 (08:28→19:03)
[2022-12-31] MEDS: levETIRAcetam 500 MG/5 ML LIQUID UDC GT SCH ×2 (09:07→20:18)
[2022-12-31] MEDS: GEMFIBROZIL 600 MG TABLET GT SCH ×2 (09:07→17:43)
[2022-12-31] MEDS: LACOSAMIDE 100 MG/10 ML UDC GT SCH ×2 (09:07→20:25)
[2022-12-31] MEDS: CLOBAZAM 2.5 MG/ML GT SCH (09:07)
[2022-12-31] MEDS: DOCUSATE SODIUM 100 MG/10 ML LIQUID UDC GT SCH ×2 (09:07→20:15)
[2022-12-31] MEDS: BISACODYL 10 MG SUPP.RECT RC SCH (09:07)
[2022-12-31] MEDS: HEPARIN SODIUM,PORCINE 5,000 UNITS/ML VIAL SQ SCH ×2 (09:07→20:28)
[2022-12-31] MEDS: PROTEIN SUPPLEMENT (PROSTAT) 30 ML LIQUID GT SCH ×2 (09:07→20:23)
[2022-12-31] MEDS: REMEDY ESSENTIAL ZINC PASTE 113 GM TOP SCH ×2 (09:08→20:30)
[2022-12-31 20:17] VITALS: TEMP 98.4
[2023-01-01] MEDS: ALBUTEROL SULFATE 1.25 MG/3 ML NEBU NEB SCH ×4 (01:41→19:25)
[2023-01-01] MEDS: IPRATROPIUM BROMIDE 0.5 MG/2.5 ML NEBU NEB SCH ×4 (01:41→19:25)
[2023-01-01] MEDS: POLYVINYL ALCOHOL OPHT DROPS 15 ML BOTTLE EACHEYE SCH ×6 (02:21→22:14)
[2023-01-01] MEDS: MINERAL OIL/PETROLAT OPHT OINT 3.5 GM TUBE EACHEYE SCH ×3 (05:57→22:14)
[2023-01-01] MEDS: NUTRISOURCE FIBER 4 GM PACKET GT SCH ×3 (05:57→22:14)
[2023-01-01 08:00] VITALS: TEMP 99.6
[2023-01-01] MEDS: ACETYLCYSTEINE 10% 4ML VIAL NEB SCH ×2 (08:25→19:25)
[2023-01-01] MEDS: HYDROGEN PEROXIDE 3% 118 ML BOTTLE TP SCH ×2 (08:25→21:00)
[2023-01-01] MEDS: DOCUSATE SODIUM 100 MG/10 ML LIQUID UDC GT SCH ×2 (08:43→21:00)
[2023-01-01] MEDS: levETIRAcetam 500 MG/5 ML LIQUID UDC GT SCH ×2 (08:43→21:00)
[2023-01-01] MEDS: PROTEIN SUPPLEMENT (PROSTAT) 30 ML LIQUID GT SCH ×2 (08:44→21:00)
[2023-01-01] MEDS: GEMFIBROZIL 600 MG TABLET GT SCH ×2 (08:44→16:52)
[2023-01-01] MEDS: CLOBAZAM 2.5 MG/ML GT SCH (09:27)
[2023-01-01] MEDS: REMEDY ESSENTIAL ZINC PASTE 113 GM TOP SCH ×2 (09:27→21:00)
[2023-01-01] MEDS: LACOSAMIDE 100 MG/10 ML UDC GT SCH ×2 (09:27→21:55)
[2023-01-01] MEDS: HEPARIN SODIUM,PORCINE 5,000 UNITS/ML VIAL SQ SCH ×2 (10:02→21:55)
[2023-01-01 20:10] VITALS: TEMP 98.6
[2023-01-02] MEDS: IPRATROPIUM BROMIDE 0.5 MG/2.5 ML NEBU NEB SCH ×4 (01:32→19:25)
[2023-01-02] MEDS: ALBUTEROL SULFATE 1.25 MG/3 ML NEBU NEB SCH ×4 (01:32→19:25)
[2023-01-02] MEDS: POLYVINYL ALCOHOL OPHT DROPS 15 ML BOTTLE EACHEYE SCH ×6 (02:10→22:13)
[2023-01-02] MEDS: MINERAL OIL/PETROLAT OPHT OINT 3.5 GM TUBE EACHEYE SCH ×3 (06:58→22:13)
[2023-01-02] MEDS: JEVITY 1.2 1000 ML LIQUID GT PRN ×2 (06:58→19:30)
[2023-01-02] MEDS: NUTRISOURCE FIBER 4 GM PACKET GT SCH ×3 (06:58→22:13)
[2023-01-02] MEDS: ACETYLCYSTEINE 10% 4ML VIAL NEB SCH ×2 (07:28→19:25)
[2023-01-02 08:00] VITALS: TEMP 99.2
[2023-01-02] MEDS: HYDROGEN PEROXIDE 3% 118 ML BOTTLE TP SCH ×2 (08:50→21:03)
[2023-01-02] MEDS: DOCUSATE SODIUM 100 MG/10 ML LIQUID UDC GT SCH ×2 (09:21→21:00)
[2023-01-02] MEDS: levETIRAcetam 500 MG/5 ML LIQUID UDC GT SCH ×2 (09:22→21:00)
[2023-01-02] MEDS: GEMFIBROZIL 600 MG TABLET GT SCH ×2 (09:23→17:00)
[2023-01-02] MEDS: PROTEIN SUPPLEMENT (PROSTAT) 30 ML LIQUID GT SCH ×2 (09:24→21:00)
[2023-01-02] MEDS: REMEDY ESSENTIAL ZINC PASTE 113 GM TOP SCH ×2 (09:28→21:00)
[2023-01-02] MEDS: CLOBAZAM 2.5 MG/ML GT SCH (09:36)
[2023-01-02] MEDS: LACOSAMIDE 100 MG/10 ML UDC GT SCH ×2 (09:36→21:00)
[2023-01-02] MEDS: BISACODYL 10 MG SUPP.RECT RC SCH (09:43)
[2023-01-02] MEDS: HEPARIN SODIUM,PORCINE 5,000 UNITS/ML VIAL SQ SCH ×2 (09:48→21:00)
[2023-01-02] MEDS: LORAZEPAM 0.5 MG TABLET GT PRN (11:12)
[2023-01-02 22:29] VITALS: TEMP 97.8
[2023-01-03] MEDS: IPRATROPIUM BROMIDE 0.5 MG/2.5 ML NEBU NEB SCH ×4 (01:34→19:16)
[2023-01-03] MEDS: ALBUTEROL SULFATE 1.25 MG/3 ML NEBU NEB SCH ×4 (01:34→19:16)
[2023-01-03] MEDS: POLYVINYL ALCOHOL OPHT DROPS 15 ML BOTTLE EACHEYE SCH ×6 (02:00→22:21)
[2023-01-03] MEDS: MINERAL OIL/PETROLAT OPHT OINT 3.5 GM TUBE EACHEYE SCH ×3 (05:43→22:21)
[2023-01-03] MEDS: NUTRISOURCE FIBER 4 GM PACKET GT SCH ×3 (05:43→22:21)
[2023-01-03] MEDS: ACETYLCYSTEINE 10% 4ML VIAL NEB SCH ×2 (07:37→19:16)
[2023-01-03 07:42] VITALS: TEMP 98.5
[2023-01-03] MEDS: REMEDY ESSENTIAL ZINC PASTE 113 GM TOP SCH ×2 (09:00→20:04)
[2023-01-03] MEDS: LACOSAMIDE 100 MG/10 ML UDC GT SCH ×2 (09:00→20:04)
[2023-01-03] MEDS: HYDROGEN PEROXIDE 3% 118 ML BOTTLE TP SCH ×2 (09:00→19:16)
[2023-01-03] MEDS: CLOBAZAM 2.5 MG/ML GT SCH (09:00)
[2023-01-03] MEDS: PROTEIN SUPPLEMENT (PROSTAT) 30 ML LIQUID GT SCH ×2 (09:00→20:04)
[2023-01-03] MEDS: DOCUSATE SODIUM 100 MG/10 ML LIQUID UDC GT SCH ×2 (09:55→20:04)
[2023-01-03] MEDS: levETIRAcetam 500 MG/5 ML LIQUID UDC GT SCH ×2 (09:57→20:04)
[2023-01-03] MEDS: HEPARIN SODIUM,PORCINE 5,000 UNITS/ML VIAL SQ SCH ×2 (09:57→20:39)
[2023-01-03] MEDS: GEMFIBROZIL 600 MG TABLET GT SCH ×2 (09:58→17:16)
[2023-01-03 20:00] VITALS: TEMP 98.8
[2023-01-03] MEDS: JEVITY 1.2 1000 ML LIQUID GT PRN (22:22)
[2023-01-03] MEDS: LORAZEPAM 0.5 MG TABLET GT PRN (22:33)
[2023-01-04] MEDS: ALBUTEROL SULFATE 1.25 MG/3 ML NEBU NEB SCH ×4 (01:53→19:16)
[2023-01-04] MEDS: IPRATROPIUM BROMIDE 0.5 MG/2.5 ML NEBU NEB SCH ×4 (01:53→19:15)
[2023-01-04] MEDS: POLYVINYL ALCOHOL OPHT DROPS 15 ML BOTTLE EACHEYE SCH ×6 (02:24→21:37)
[2023-01-04] MEDS: NUTRISOURCE FIBER 4 GM PACKET GT SCH ×3 (05:18→21:37)
[2023-01-04] MEDS: MINERAL OIL/PETROLAT OPHT OINT 3.5 GM TUBE EACHEYE SCH ×3 (05:18→21:37)
[2023-01-04] MEDS: ACETYLCYSTEINE 10% 4ML VIAL NEB SCH ×2 (07:40→19:15)
[2023-01-04] MEDS: HYDROGEN PEROXIDE 3% 118 ML BOTTLE TP SCH ×2 (07:40→19:16)
[2023-01-04] MEDS: BISACODYL 10 MG SUPP.RECT RC SCH (09:00)
[2023-01-04] MEDS: DOCUSATE SODIUM 100 MG/10 ML LIQUID UDC GT SCH ×2 (09:37→21:35)
[2023-01-04] MEDS: GEMFIBROZIL 600 MG TABLET GT SCH ×2 (09:38→17:17)
[2023-01-04] MEDS: levETIRAcetam 500 MG/5 ML LIQUID UDC GT SCH ×2 (09:38→21:36)
[2023-01-04] MEDS: CLOBAZAM 2.5 MG/ML GT SCH (09:47)
[2023-01-04] MEDS: LACOSAMIDE 100 MG/10 ML UDC GT SCH ×2 (09:47→21:36)
[2023-01-04] MEDS: PROTEIN SUPPLEMENT (PROSTAT) 30 ML LIQUID GT SCH ×2 (09:47→21:36)
[2023-01-04] MEDS: HEPARIN SODIUM,PORCINE 5,000 UNITS/ML VIAL SQ SCH ×2 (09:54→21:00)
[2023-01-04] MEDS: REMEDY ESSENTIAL ZINC PASTE 113 GM TOP SCH ×2 (09:55→21:37)
[2023-01-04 11:02] VITALS: TEMP 97.9
[2023-01-04 20:00] VITALS: TEMP 98.4
[2023-01-05] MEDS: JEVITY 1.2 1000 ML LIQUID GT PRN (00:23)
[2023-01-05] MEDS: IPRATROPIUM BROMIDE 0.5 MG/2.5 ML NEBU NEB SCH ×4 (01:52→19:20)
[2023-01-05] MEDS: ALBUTEROL SULFATE 1.25 MG/3 ML NEBU NEB SCH ×4 (01:52→19:20)
[2023-01-05] MEDS: POLYVINYL ALCOHOL OPHT DROPS 15 ML BOTTLE EACHEYE SCH ×6 (02:00→22:36)
[2023-01-05] MEDS: NUTRISOURCE FIBER 4 GM PACKET GT SCH ×3 (05:22→22:36)
[2023-01-05] MEDS: MINERAL OIL/PETROLAT OPHT OINT 3.5 GM TUBE EACHEYE SCH ×3 (05:22→22:36)
[2023-01-05] MEDS: ACETYLCYSTEINE 10% 4ML VIAL NEB SCH ×2 (07:57→19:20)
[2023-01-05 08:00] VITALS: TEMP 98.6
[2023-01-05] MEDS: LACOSAMIDE 100 MG/10 ML UDC GT SCH ×2 (09:00→20:53)
[2023-01-05] MEDS: HEPARIN SODIUM,PORCINE 5,000 UNITS/ML VIAL SQ SCH ×2 (09:00→21:00)
[2023-01-05] MEDS: GEMFIBROZIL 600 MG TABLET GT SCH ×2 (09:00→17:37)
[2023-01-05] MEDS: DOCUSATE SODIUM 100 MG/10 ML LIQUID UDC GT SCH ×2 (09:00→20:53)
[2023-01-05] MEDS: levETIRAcetam 500 MG/5 ML LIQUID UDC GT SCH ×2 (09:00→20:53)
[2023-01-05] MEDS: PROTEIN SUPPLEMENT (PROSTAT) 30 ML LIQUID GT SCH ×2 (09:00→20:53)
[2023-01-05] MEDS: CLOBAZAM 2.5 MG/ML GT SCH (09:00)
[2023-01-05] MEDS: REMEDY ESSENTIAL ZINC PASTE 113 GM TOP SCH ×2 (09:00→20:53)
[2023-01-05] MEDS: HYDROGEN PEROXIDE 3% 118 ML BOTTLE TP SCH ×2 (09:24→19:20)
[2023-01-05 20:35] VITALS: TEMP 98.7
[2023-01-06] MEDS: IPRATROPIUM BROMIDE 0.5 MG/2.5 ML NEBU NEB SCH ×4 (01:23→19:30)
[2023-01-06] MEDS: ALBUTEROL SULFATE 1.25 MG/3 ML NEBU NEB SCH ×4 (01:24→19:30)
[2023-01-06] MEDS: POLYVINYL ALCOHOL OPHT DROPS 15 ML BOTTLE EACHEYE SCH ×6 (01:46→22:00)
[2023-01-06] MEDS: JEVITY 1.2 1000 ML LIQUID GT PRN (01:46)
[2023-01-06] MEDS: MINERAL OIL/PETROLAT OPHT OINT 3.5 GM TUBE EACHEYE SCH ×3 (05:20→22:00)
[2023-01-06] MEDS: NUTRISOURCE FIBER 4 GM PACKET GT SCH ×3 (05:20→22:00)
[2023-01-06] MEDS: ACETYLCYSTEINE 10% 4ML VIAL NEB SCH ×2 (05:43→19:30)
[2023-01-06 07:41] VITALS: TEMP 98.6
[2023-01-06] MEDS: CLOBAZAM 2.5 MG/ML GT SCH (08:15)
[2023-01-06] MEDS: REMEDY ESSENTIAL ZINC PASTE 113 GM TOP SCH ×2 (08:15→21:00)
[2023-01-06] MEDS: levETIRAcetam 500 MG/5 ML LIQUID UDC GT SCH ×2 (08:15→21:00)
[2023-01-06] MEDS: DOCUSATE SODIUM 100 MG/10 ML LIQUID UDC GT SCH ×2 (08:15→21:00)
[2023-01-06] MEDS: GEMFIBROZIL 600 MG TABLET GT SCH ×2 (08:15→16:58)
[2023-01-06] MEDS: PROTEIN SUPPLEMENT (PROSTAT) 30 ML LIQUID GT SCH ×2 (08:15→21:00)
[2023-01-06] MEDS: LACOSAMIDE 100 MG/10 ML UDC GT SCH ×2 (08:15→21:00)
[2023-01-06] MEDS: HEPARIN SODIUM,PORCINE 5,000 UNITS/ML VIAL SQ SCH ×2 (08:18→21:00)
[2023-01-06] MEDS: HYDROGEN PEROXIDE 3% 118 ML BOTTLE TP SCH ×2 (10:59→21:05)
[2023-01-06 20:14] VITALS: TEMP 98.3
[2023-01-07] MEDS: ALBUTEROL SULFATE 1.25 MG/3 ML NEBU NEB SCH ×4 (01:48→19:35)
[2023-01-07] MEDS: IPRATROPIUM BROMIDE 0.5 MG/2.5 ML NEBU NEB SCH ×4 (01:48→19:35)
[2023-01-07] MEDS: POLYVINYL ALCOHOL OPHT DROPS 15 ML BOTTLE EACHEYE SCH ×6 (02:00→22:04)
[2023-01-07] MEDS: NUTRISOURCE FIBER 4 GM PACKET GT SCH ×3 (06:00→22:04)
[2023-01-07] MEDS: MINERAL OIL/PETROLAT OPHT OINT 3.5 GM TUBE EACHEYE SCH ×3 (06:00→22:04)
[2023-01-07 07:41] VITALS: TEMP 97.6
[2023-01-07] MEDS: ACETYLCYSTEINE 10% 4ML VIAL NEB SCH ×2 (07:57→19:35)
[2023-01-07] MEDS: GEMFIBROZIL 600 MG TABLET GT SCH ×2 (08:47→16:16)
[2023-01-07] MEDS: PROTEIN SUPPLEMENT (PROSTAT) 30 ML LIQUID GT SCH ×2 (08:47→20:22)
[2023-01-07] MEDS: DOCUSATE SODIUM 100 MG/10 ML LIQUID UDC GT SCH ×2 (08:47→20:22)
[2023-01-07] MEDS: BISACODYL 10 MG SUPP.RECT RC SCH (08:47)
[2023-01-07] MEDS: LACOSAMIDE 100 MG/10 ML UDC GT SCH ×2 (08:47→20:22)
[2023-01-07] MEDS: levETIRAcetam 500 MG/5 ML LIQUID UDC GT SCH ×2 (08:47→20:22)
[2023-01-07] MEDS: CLOBAZAM 2.5 MG/ML GT SCH (08:47)
[2023-01-07] MEDS: REMEDY ESSENTIAL ZINC PASTE 113 GM TOP SCH ×2 (08:47→20:22)
[2023-01-07] MEDS: HEPARIN SODIUM,PORCINE 5,000 UNITS/ML VIAL SQ SCH ×2 (08:48→20:24)
[2023-01-07] MEDS: HYDROGEN PEROXIDE 3% 118 ML BOTTLE TP SCH ×2 (09:53→21:48)
[2023-01-07 20:26] VITALS: TEMP 98.5
[2023-01-08] MEDS: IPRATROPIUM BROMIDE 0.5 MG/2.5 ML NEBU NEB SCH ×4 (01:35→19:30)
[2023-01-08] MEDS: ALBUTEROL SULFATE 1.25 MG/3 ML NEBU NEB SCH ×4 (01:35→19:30)
[2023-01-08] MEDS: POLYVINYL ALCOHOL OPHT DROPS 15 ML BOTTLE EACHEYE SCH ×6 (02:00→22:13)
[2023-01-08] MEDS: NUTRISOURCE FIBER 4 GM PACKET GT SCH ×3 (05:15→22:13)
[2023-01-08] MEDS: MINERAL OIL/PETROLAT OPHT OINT 3.5 GM TUBE EACHEYE SCH ×3 (05:15→22:13)
[2023-01-08] MEDS: ACETYLCYSTEINE 10% 4ML VIAL NEB SCH ×2 (07:31→19:30)
[2023-01-08] MEDS: HYDROGEN PEROXIDE 3% 118 ML BOTTLE TP SCH ×2 (07:31→21:57)
[2023-01-08 08:00] VITALS: TEMP 98.2
[2023-01-08] MEDS: LACOSAMIDE 100 MG/10 ML UDC GT SCH ×2 (09:00→20:28)
[2023-01-08] MEDS: HEPARIN SODIUM,PORCINE 5,000 UNITS/ML VIAL SQ SCH ×2 (09:00→20:29)
[2023-01-08] MEDS: REMEDY ESSENTIAL ZINC PASTE 113 GM TOP SCH ×2 (09:00→20:29)
[2023-01-08] MEDS: GEMFIBROZIL 600 MG TABLET GT SCH ×2 (09:00→17:26)
[2023-01-08] MEDS: CLOBAZAM 2.5 MG/ML GT SCH (09:00)
[2023-01-08] MEDS: PROTEIN SUPPLEMENT (PROSTAT) 30 ML LIQUID GT SCH ×2 (09:00→20:28)
[2023-01-08] MEDS: DOCUSATE SODIUM 100 MG/10 ML LIQUID UDC GT SCH ×2 (09:00→20:26)
[2023-01-08] MEDS: levETIRAcetam 500 MG/5 ML LIQUID UDC GT SCH ×2 (09:00→20:26)
[2023-01-08] MEDS: JEVITY 1.2 1000 ML LIQUID GT PRN (12:59)
[2023-01-08 20:31] VITALS: TEMP 97.9
[2023-01-09] MEDS: ALBUTEROL SULFATE 1.25 MG/3 ML NEBU NEB SCH ×4 (01:54→20:29)
[2023-01-09] MEDS: IPRATROPIUM BROMIDE 0.5 MG/2.5 ML NEBU NEB SCH ×4 (01:54→20:29)
[2023-01-09] MEDS: POLYVINYL ALCOHOL OPHT DROPS 15 ML BOTTLE EACHEYE SCH ×6 (02:00→22:50)
[2023-01-09] MEDS: NUTRISOURCE FIBER 4 GM PACKET GT SCH ×3 (05:02→22:51)
[2023-01-09] MEDS: MINERAL OIL/PETROLAT OPHT OINT 3.5 GM TUBE EACHEYE SCH ×3 (05:02→22:51)
[2023-01-09] MEDS: ACETYLCYSTEINE 10% 4ML VIAL NEB SCH ×2 (07:17→20:29)
[2023-01-09 07:48] VITALS: TEMP 97.4
[2023-01-09] MEDS: HYDROGEN PEROXIDE 3% 118 ML BOTTLE TP SCH ×2 (08:57→20:29)
[2023-01-09] MEDS: levETIRAcetam 500 MG/5 ML LIQUID UDC GT SCH ×2 (09:10→20:52)
[2023-01-09] MEDS: GEMFIBROZIL 600 MG TABLET GT SCH ×2 (09:10→17:57)
[2023-01-09] MEDS: DOCUSATE SODIUM 100 MG/10 ML LIQUID UDC GT SCH ×2 (09:10→20:52)
[2023-01-09] MEDS: PROTEIN SUPPLEMENT (PROSTAT) 30 ML LIQUID GT SCH ×2 (09:13→20:52)
[2023-01-09] MEDS: CLOBAZAM 2.5 MG/ML GT SCH (09:13)
[2023-01-09] MEDS: LACOSAMIDE 100 MG/10 ML UDC GT SCH ×2 (09:13→20:52)
[2023-01-09] MEDS: BISACODYL 10 MG SUPP.RECT RC SCH (09:14)
[2023-01-09] MEDS: REMEDY ESSENTIAL ZINC PASTE 113 GM TOP SCH ×2 (09:14→20:53)
[2023-01-09] MEDS: HEPARIN SODIUM,PORCINE 5,000 UNITS/ML VIAL SQ SCH ×2 (09:17→20:53)
[2023-01-09 20:08] VITALS: TEMP 98.3
[2023-01-10] MEDS: ALBUTEROL SULFATE 1.25 MG/3 ML NEBU NEB SCH ×4 (01:22→19:22)
[2023-01-10] MEDS: IPRATROPIUM BROMIDE 0.5 MG/2.5 ML NEBU NEB SCH ×4 (01:22→19:22)
[2023-01-10] MEDS: POLYVINYL ALCOHOL OPHT DROPS 15 ML BOTTLE EACHEYE SCH ×6 (02:00→21:00)
[2023-01-10] MEDS: NUTRISOURCE FIBER 4 GM PACKET GT SCH ×3 (05:36→21:00)
[2023-01-10] MEDS: MINERAL OIL/PETROLAT OPHT OINT 3.5 GM TUBE EACHEYE SCH ×3 (05:36→21:00)
[2023-01-10] MEDS: ACETYLCYSTEINE 10% 4ML VIAL NEB SCH ×2 (07:24→19:22)
[2023-01-10 07:46] VITALS: TEMP 98.6
[2023-01-10] MEDS: PROTEIN SUPPLEMENT (PROSTAT) 30 ML LIQUID GT SCH ×2 (08:41→20:49)
[2023-01-10] MEDS: CLOBAZAM 2.5 MG/ML GT SCH (08:41)
[2023-01-10] MEDS: LACOSAMIDE 100 MG/10 ML UDC GT SCH ×2 (08:41→20:49)
[2023-01-10] MEDS: DOCUSATE SODIUM 100 MG/10 ML LIQUID UDC GT SCH ×2 (08:41→20:49)
[2023-01-10] MEDS: GEMFIBROZIL 600 MG TABLET GT SCH ×2 (08:41→16:37)
[2023-01-10] MEDS: levETIRAcetam 500 MG/5 ML LIQUID UDC GT SCH ×2 (08:41→20:49)
[2023-01-10] MEDS: HEPARIN SODIUM,PORCINE 5,000 UNITS/ML VIAL SQ SCH ×2 (08:43→20:52)
[2023-01-10] MEDS: REMEDY ESSENTIAL ZINC PASTE 113 GM TOP SCH ×2 (08:45→20:49)
[2023-01-10] MEDS: HYDROGEN PEROXIDE 3% 118 ML BOTTLE TP SCH ×2 (09:00→19:23)
[2023-01-10 20:00] VITALS: TEMP 98.8
[2023-01-11] MEDS: IPRATROPIUM BROMIDE 0.5 MG/2.5 ML NEBU NEB SCH ×4 (01:41→19:08)
[2023-01-11] MEDS: ALBUTEROL SULFATE 1.25 MG/3 ML NEBU NEB SCH ×4 (01:41→19:08)
[2023-01-11] MEDS: POLYVINYL ALCOHOL OPHT DROPS 15 ML BOTTLE EACHEYE SCH ×6 (02:00→22:49)
[2023-01-11] MEDS: NUTRISOURCE FIBER 4 GM PACKET GT SCH ×3 (05:33→22:49)
[2023-01-11] MEDS: MINERAL OIL/PETROLAT OPHT OINT 3.5 GM TUBE EACHEYE SCH ×3 (05:33→22:49)
[2023-01-11 07:39] VITALS: TEMP 98.9
[2023-01-11] MEDS: ACETYLCYSTEINE 10% 4ML VIAL NEB SCH ×2 (07:40→19:08)
[2023-01-11] MEDS: HYDROGEN PEROXIDE 3% 118 ML BOTTLE TP SCH ×2 (07:40→19:08)
[2023-01-11] MEDS: DOCUSATE SODIUM 100 MG/10 ML LIQUID UDC GT SCH ×2 (08:16→20:15)
[2023-01-11] MEDS: levETIRAcetam 500 MG/5 ML LIQUID UDC GT SCH ×2 (08:16→20:15)
[2023-01-11] MEDS: GEMFIBROZIL 600 MG TABLET GT SCH ×2 (08:17→17:48)
[2023-01-11] MEDS: CLOBAZAM 2.5 MG/ML GT SCH (08:17)
[2023-01-11] MEDS: PROTEIN SUPPLEMENT (PROSTAT) 30 ML LIQUID GT SCH ×2 (08:19→20:15)
[2023-01-11] MEDS: BISACODYL 10 MG SUPP.RECT RC SCH (08:19)
[2023-01-11] MEDS: LACOSAMIDE 100 MG/10 ML UDC GT SCH ×2 (08:19→20:15)
[2023-01-11] MEDS: REMEDY ESSENTIAL ZINC PASTE 113 GM TOP SCH ×2 (08:23→20:17)
[2023-01-11] MEDS: HEPARIN SODIUM,PORCINE 5,000 UNITS/ML VIAL SQ SCH ×2 (08:23→20:19)
[2023-01-11 20:47] VITALS: TEMP 100.1
[2023-01-11 22:00] VITALS: TEMP 99.8
[2023-01-11 23:00] VITALS: TEMP 99.8
[2023-01-12] MEDS: IPRATROPIUM BROMIDE 0.5 MG/2.5 ML NEBU NEB SCH ×4 (01:05→19:05)
[2023-01-12] MEDS: ALBUTEROL SULFATE 1.25 MG/3 ML NEBU NEB SCH ×4 (01:05→19:05)
[2023-01-12 02:00] VITALS: TEMP 99.1
[2023-01-12] MEDS: POLYVINYL ALCOHOL OPHT DROPS 15 ML BOTTLE EACHEYE SCH ×6 (02:33→22:00)
[2023-01-12] MEDS: NUTRISOURCE FIBER 4 GM PACKET GT SCH ×3 (05:51→22:00)
[2023-01-12] MEDS: MINERAL OIL/PETROLAT OPHT OINT 3.5 GM TUBE EACHEYE SCH ×3 (05:51→22:00)
[2023-01-12 06:00] VITALS: TEMP 98.5
[2023-01-12] MEDS: HYDROGEN PEROXIDE 3% 118 ML BOTTLE TP SCH ×2 (07:22→19:06)
[2023-01-12] MEDS: ACETYLCYSTEINE 10% 4ML VIAL NEB SCH ×2 (07:22→19:05)
[2023-01-12 07:33] VITALS: TEMP 98
[2023-01-12] MEDS: DOCUSATE SODIUM 100 MG/10 ML LIQUID UDC GT SCH ×2 (08:44→20:32)
[2023-01-12] MEDS: GEMFIBROZIL 600 MG TABLET GT SCH ×2 (08:46→16:42)
[2023-01-12] MEDS: levETIRAcetam 500 MG/5 ML LIQUID UDC GT SCH ×2 (08:46→20:32)
[2023-01-12] MEDS: REMEDY ESSENTIAL ZINC PASTE 113 GM TOP SCH ×2 (08:48→20:33)
[2023-01-12] MEDS: PROTEIN SUPPLEMENT (PROSTAT) 30 ML LIQUID GT SCH ×2 (08:48→20:32)
[2023-01-12] MEDS: LACOSAMIDE 100 MG/10 ML UDC GT SCH ×2 (08:59→20:33)
[2023-01-12] MEDS: HEPARIN SODIUM,PORCINE 5,000 UNITS/ML VIAL SQ SCH ×2 (09:04→21:00)
[2023-01-12] MEDS: CLOBAZAM 2.5 MG/ML GT SCH (09:10)
[2023-01-12 21:02] VITALS: TEMP 98
[2023-01-13] MEDS: ALBUTEROL SULFATE 1.25 MG/3 ML NEBU NEB SCH ×4 (01:25→20:08)
[2023-01-13] MEDS: IPRATROPIUM BROMIDE 0.5 MG/2.5 ML NEBU NEB SCH ×4 (01:25→20:08)
[2023-01-13] MEDS: POLYVINYL ALCOHOL OPHT DROPS 15 ML BOTTLE EACHEYE SCH ×6 (02:00→22:45)
[2023-01-13] MEDS: JEVITY 1.2 1000 ML LIQUID GT PRN (03:27)
[2023-01-13] MEDS: MINERAL OIL/PETROLAT OPHT OINT 3.5 GM TUBE EACHEYE SCH ×3 (05:29→22:45)
[2023-01-13] MEDS: NUTRISOURCE FIBER 4 GM PACKET GT SCH ×3 (05:29→22:45)
[2023-01-13] MEDS: ACETYLCYSTEINE 10% 4ML VIAL NEB SCH ×2 (07:40→20:08)
[2023-01-13 07:51] VITALS: TEMP 97.7
[2023-01-13] MEDS: DOCUSATE SODIUM 100 MG/10 ML LIQUID UDC GT SCH ×2 (08:42→20:14)
[2023-01-13] MEDS: GEMFIBROZIL 600 MG TABLET GT SCH ×2 (08:44→17:11)
[2023-01-13] MEDS: levETIRAcetam 500 MG/5 ML LIQUID UDC GT SCH ×2 (08:44→20:14)
[2023-01-13] MEDS: CLOBAZAM 2.5 MG/ML GT SCH (08:49)
[2023-01-13] MEDS: PROTEIN SUPPLEMENT (PROSTAT) 30 ML LIQUID GT SCH ×2 (08:49→20:14)
[2023-01-13] MEDS: LACOSAMIDE 100 MG/10 ML UDC GT SCH ×2 (08:53→20:14)
[2023-01-13] MEDS: HEPARIN SODIUM,PORCINE 5,000 UNITS/ML VIAL SQ SCH ×2 (08:54→21:00)
[2023-01-13] MEDS: REMEDY ESSENTIAL ZINC PASTE 113 GM TOP SCH ×2 (08:54→20:14)
[2023-01-13] MEDS: HYDROGEN PEROXIDE 3% 118 ML BOTTLE TP SCH ×2 (09:41→20:08)
[2023-01-13 20:17] VITALS: TEMP 99.1
[2023-01-14] MEDS: ALBUTEROL SULFATE 1.25 MG/3 ML NEBU NEB SCH ×4 (01:17→19:40)
[2023-01-14] MEDS: IPRATROPIUM BROMIDE 0.5 MG/2.5 ML NEBU NEB SCH ×4 (01:17→19:40)
[2023-01-14] MEDS: POLYVINYL ALCOHOL OPHT DROPS 15 ML BOTTLE EACHEYE SCH ×6 (02:00→22:04)
[2023-01-14] MEDS: LORAZEPAM 0.5 MG TABLET GT PRN (03:35)
[2023-01-14] MEDS: NUTRISOURCE FIBER 4 GM PACKET GT SCH ×3 (05:20→22:04)
[2023-01-14] MEDS: MINERAL OIL/PETROLAT OPHT OINT 3.5 GM TUBE EACHEYE SCH ×3 (05:20→22:04)
[2023-01-14] MEDS: ACETYLCYSTEINE 10% 4ML VIAL NEB SCH ×2 (07:07→19:40)
[2023-01-14 08:00] VITALS: TEMP 98.2
[2023-01-14] MEDS: JEVITY 1.2 1000 ML LIQUID GT PRN (08:10)
[2023-01-14] MEDS: GEMFIBROZIL 600 MG TABLET GT SCH ×2 (08:38→17:38)
[2023-01-14] MEDS: PROTEIN SUPPLEMENT (PROSTAT) 30 ML LIQUID GT SCH ×2 (08:39→20:06)
[2023-01-14] MEDS: REMEDY ESSENTIAL ZINC PASTE 113 GM TOP SCH ×2 (08:40→20:06)
[2023-01-14] MEDS: BISACODYL 10 MG SUPP.RECT RC SCH (08:40)
[2023-01-14] MEDS: levETIRAcetam 500 MG/5 ML LIQUID UDC GT SCH ×2 (08:40→20:06)
[2023-01-14] MEDS: HEPARIN SODIUM,PORCINE 5,000 UNITS/ML VIAL SQ SCH ×2 (08:45→20:07)
[2023-01-14] MEDS: LACOSAMIDE 100 MG/10 ML UDC GT SCH ×2 (08:47→20:08)
[2023-01-14] MEDS: DOCUSATE SODIUM 100 MG/10 ML LIQUID UDC GT SCH ×2 (08:51→20:06)
[2023-01-14] MEDS: HYDROGEN PEROXIDE 3% 118 ML BOTTLE TP SCH ×2 (09:00→21:09)
[2023-01-14] MEDS: CLOBAZAM 2.5 MG/ML GT SCH (09:00)
[2023-01-14 20:04] VITALS: TEMP 99.1
[2023-01-15] MEDS: IPRATROPIUM BROMIDE 0.5 MG/2.5 ML NEBU NEB SCH ×4 (01:50→19:11)
[2023-01-15] MEDS: ALBUTEROL SULFATE 1.25 MG/3 ML NEBU NEB SCH ×4 (01:50→19:11)
[2023-01-15] MEDS: POLYVINYL ALCOHOL OPHT DROPS 15 ML BOTTLE EACHEYE SCH ×7 (02:00→22:44)
[2023-01-15] MEDS: LORAZEPAM 0.5 MG TABLET GT PRN (04:18)
[2023-01-15] MEDS: MINERAL OIL/PETROLAT OPHT OINT 3.5 GM TUBE EACHEYE SCH ×3 (05:42→22:44)
[2023-01-15] MEDS: NUTRISOURCE FIBER 4 GM PACKET GT SCH ×3 (05:43→22:44)
[2023-01-15] MEDS: ACETYLCYSTEINE 10% 4ML VIAL NEB SCH ×2 (07:40→19:11)
[2023-01-15 08:00] VITALS: TEMP 99
[2023-01-15] MEDS: LACOSAMIDE 100 MG/10 ML UDC GT SCH ×2 (08:33→20:19)
[2023-01-15] MEDS: CLOBAZAM 2.5 MG/ML GT SCH (08:33)
[2023-01-15] MEDS: DOCUSATE SODIUM 100 MG/10 ML LIQUID UDC GT SCH ×2 (08:40→20:17)
[2023-01-15] MEDS: levETIRAcetam 500 MG/5 ML LIQUID UDC GT SCH ×2 (08:40→20:18)
[2023-01-15] MEDS: GEMFIBROZIL 600 MG TABLET GT SCH ×2 (08:44→17:18)
[2023-01-15] MEDS: HYDROGEN PEROXIDE 3% 118 ML BOTTLE TP SCH ×2 (08:45→19:11)
[2023-01-15] MEDS: PROTEIN SUPPLEMENT (PROSTAT) 30 ML LIQUID GT SCH ×2 (08:45→20:19)
[2023-01-15] MEDS: REMEDY ESSENTIAL ZINC PASTE 113 GM TOP SCH ×2 (08:45→20:25)
[2023-01-15] MEDS: HEPARIN SODIUM,PORCINE 5,000 UNITS/ML VIAL SQ SCH ×2 (08:48→20:23)
[2023-01-15] MEDS: JEVITY 1.2 1000 ML LIQUID GT PRN (12:29)
[2023-01-15 21:00] VITALS: TEMP 98.7
[2023-01-16] MEDS: POLYVINYL ALCOHOL OPHT DROPS 15 ML BOTTLE EACHEYE SCH ×6 (02:00→22:50)
[2023-01-16] MEDS: ALBUTEROL SULFATE 1.25 MG/3 ML NEBU NEB SCH ×4 (02:22→19:40)
[2023-01-16] MEDS: IPRATROPIUM BROMIDE 0.5 MG/2.5 ML NEBU NEB SCH ×4 (02:22→19:40)
[2023-01-16] MEDS: NUTRISOURCE FIBER 4 GM PACKET GT SCH ×3 (05:02→22:50)
[2023-01-16] MEDS: MINERAL OIL/PETROLAT OPHT OINT 3.5 GM TUBE EACHEYE SCH ×3 (05:02→22:50)
[2023-01-16] MEDS: ACETYLCYSTEINE 10% 4ML VIAL NEB SCH ×2 (07:07→19:40)
[2023-01-16 08:00] VITALS: TEMP 98.4
[2023-01-16] MEDS: HYDROGEN PEROXIDE 3% 118 ML BOTTLE TP SCH ×2 (08:19→21:00)
[2023-01-16] MEDS: BISACODYL 10 MG SUPP.RECT RC SCH (09:00)
[2023-01-16] MEDS: LACOSAMIDE 100 MG/10 ML UDC GT SCH ×2 (09:14→20:34)
[2023-01-16] MEDS: CLOBAZAM 2.5 MG/ML GT SCH (09:14)
[2023-01-16] MEDS: DOCUSATE SODIUM 100 MG/10 ML LIQUID UDC GT SCH ×2 (09:15→20:11)
[2023-01-16] MEDS: levETIRAcetam 500 MG/5 ML LIQUID UDC GT SCH ×2 (09:15→20:14)
[2023-01-16] MEDS: PROTEIN SUPPLEMENT (PROSTAT) 30 ML LIQUID GT SCH ×2 (09:16→20:31)
[2023-01-16] MEDS: GEMFIBROZIL 600 MG TABLET GT SCH ×2 (09:16→17:06)
[2023-01-16] MEDS: HEPARIN SODIUM,PORCINE 5,000 UNITS/ML VIAL SQ SCH ×2 (09:27→20:34)
[2023-01-16] MEDS: REMEDY ESSENTIAL ZINC PASTE 113 GM TOP SCH ×2 (09:28→20:35)
[2023-01-16] MEDS: JEVITY 1.2 1000 ML LIQUID GT PRN (13:59)
[2023-01-16 20:36] VITALS: TEMP 98.3
[2023-01-17] MEDS: IPRATROPIUM BROMIDE 0.5 MG/2.5 ML NEBU NEB SCH ×4 (01:59→19:48)
[2023-01-17] MEDS: ALBUTEROL SULFATE 1.25 MG/3 ML NEBU NEB SCH ×4 (01:59→19:48)
[2023-01-17] MEDS: POLYVINYL ALCOHOL OPHT DROPS 15 ML BOTTLE EACHEYE SCH ×6 (02:00→22:17)
[2023-01-17] MEDS: MINERAL OIL/PETROLAT OPHT OINT 3.5 GM TUBE EACHEYE SCH ×3 (05:01→22:17)
[2023-01-17] MEDS: NUTRISOURCE FIBER 4 GM PACKET GT SCH ×3 (05:01→22:17)
[2023-01-17] MEDS: ACETYLCYSTEINE 10% 4ML VIAL NEB SCH ×2 (07:27→19:48)
[2023-01-17] MEDS: HYDROGEN PEROXIDE 3% 118 ML BOTTLE TP SCH ×2 (07:28→21:00)
[2023-01-17 07:51] VITALS: TEMP 98.1
[2023-01-17] MEDS: PROTEIN SUPPLEMENT (PROSTAT) 30 ML LIQUID GT SCH ×2 (09:46→20:14)
[2023-01-17] MEDS: levETIRAcetam 500 MG/5 ML LIQUID UDC GT SCH ×2 (09:46→20:14)
[2023-01-17] MEDS: CLOBAZAM 2.5 MG/ML GT SCH (09:46)
[2023-01-17] MEDS: LACOSAMIDE 100 MG/10 ML UDC GT SCH ×2 (09:46→20:16)
[2023-01-17] MEDS: DOCUSATE SODIUM 100 MG/10 ML LIQUID UDC GT SCH ×2 (09:46→20:13)
[2023-01-17] MEDS: GEMFIBROZIL 600 MG TABLET GT SCH ×2 (09:46→16:15)
[2023-01-17] MEDS: HEPARIN SODIUM,PORCINE 5,000 UNITS/ML VIAL SQ SCH ×2 (09:47→20:16)
[2023-01-17] MEDS: REMEDY ESSENTIAL ZINC PASTE 113 GM TOP SCH ×2 (09:47→21:00)
[2023-01-17 20:07] VITALS: TEMP 98.4
[2023-01-18] MEDS: IPRATROPIUM BROMIDE 0.5 MG/2.5 ML NEBU NEB SCH ×4 (01:25→20:05)
[2023-01-18] MEDS: ALBUTEROL SULFATE 1.25 MG/3 ML NEBU NEB SCH ×4 (01:25→20:05)
[2023-01-18] MEDS: POLYVINYL ALCOHOL OPHT DROPS 15 ML BOTTLE EACHEYE SCH ×6 (02:00→21:26)
[2023-01-18] MEDS: MINERAL OIL/PETROLAT OPHT OINT 3.5 GM TUBE EACHEYE SCH ×3 (05:37→21:26)
[2023-01-18] MEDS: NUTRISOURCE FIBER 4 GM PACKET GT SCH ×3 (05:37→21:26)
[2023-01-18 07:31] VITALS: TEMP 97.6
[2023-01-18] MEDS: ACETYLCYSTEINE 10% 4ML VIAL NEB SCH ×2 (07:40→20:05)
[2023-01-18] MEDS: HYDROGEN PEROXIDE 3% 118 ML BOTTLE TP SCH ×2 (07:40→20:35)
[2023-01-18] MEDS: BISACODYL 10 MG SUPP.RECT RC SCH (08:33)
[2023-01-18] MEDS: CLOBAZAM 2.5 MG/ML GT SCH (08:33)
[2023-01-18] MEDS: levETIRAcetam 500 MG/5 ML LIQUID UDC GT SCH ×2 (08:33→20:34)
[2023-01-18] MEDS: PROTEIN SUPPLEMENT (PROSTAT) 30 ML LIQUID GT SCH ×2 (08:33→20:34)
[2023-01-18] MEDS: DOCUSATE SODIUM 100 MG/10 ML LIQUID UDC GT SCH ×2 (08:33→20:34)
[2023-01-18] MEDS: GEMFIBROZIL 600 MG TABLET GT SCH ×2 (08:33→17:11)
[2023-01-18] MEDS: LACOSAMIDE 100 MG/10 ML UDC GT SCH ×2 (08:33→20:35)
[2023-01-18] MEDS: REMEDY ESSENTIAL ZINC PASTE 113 GM TOP SCH ×2 (08:34→20:35)
[2023-01-18] MEDS: HEPARIN SODIUM,PORCINE 5,000 UNITS/ML VIAL SQ SCH ×2 (08:34→20:49)
[2023-01-18] MEDS: JEVITY 1.2 1000 ML LIQUID GT PRN (14:21)
[2023-01-18 20:20] VITALS: TEMP 98.3
[2023-01-19] MEDS: ALBUTEROL SULFATE 1.25 MG/3 ML NEBU NEB SCH ×4 (00:35→19:16)
[2023-01-19] MEDS: IPRATROPIUM BROMIDE 0.5 MG/2.5 ML NEBU NEB SCH ×4 (00:35→19:16)
[2023-01-19] MEDS: POLYVINYL ALCOHOL OPHT DROPS 15 ML BOTTLE EACHEYE SCH ×6 (01:55→21:28)
[2023-01-19] MEDS: MINERAL OIL/PETROLAT OPHT OINT 3.5 GM TUBE EACHEYE SCH ×3 (06:25→21:28)
[2023-01-19] MEDS: NUTRISOURCE FIBER 4 GM PACKET GT SCH ×3 (06:25→21:28)
[2023-01-19 07:32] VITALS: TEMP 97.6
[2023-01-19] MEDS: ACETYLCYSTEINE 10% 4ML VIAL NEB SCH ×2 (07:58→19:16)
[2023-01-19] MEDS: HYDROGEN PEROXIDE 3% 118 ML BOTTLE TP SCH ×2 (09:00→19:17)
[2023-01-19] MEDS: CLOBAZAM 2.5 MG/ML GT SCH (09:03)
[2023-01-19] MEDS: DOCUSATE SODIUM 100 MG/10 ML LIQUID UDC GT SCH ×2 (09:03→20:30)
[2023-01-19] MEDS: GEMFIBROZIL 600 MG TABLET GT SCH ×2 (09:03→17:25)
[2023-01-19] MEDS: levETIRAcetam 500 MG/5 ML LIQUID UDC GT SCH ×2 (09:03→20:30)
[2023-01-19] MEDS: PROTEIN SUPPLEMENT (PROSTAT) 30 ML LIQUID GT SCH ×2 (09:05→20:31)
[2023-01-19] MEDS: LACOSAMIDE 100 MG/10 ML UDC GT SCH ×2 (09:05→20:37)
[2023-01-19] MEDS: REMEDY ESSENTIAL ZINC PASTE 113 GM TOP SCH ×2 (09:05→20:31)
[2023-01-19] MEDS: HEPARIN SODIUM,PORCINE 5,000 UNITS/ML VIAL SQ SCH ×2 (09:07→20:38)
[2023-01-19 20:28] VITALS: TEMP 98.2
[2023-01-20] MEDS: IPRATROPIUM BROMIDE 0.5 MG/2.5 ML NEBU NEB SCH ×4 (01:30→19:17)
[2023-01-20] MEDS: ALBUTEROL SULFATE 1.25 MG/3 ML NEBU NEB SCH ×4 (01:30→19:17)
[2023-01-20] MEDS: POLYVINYL ALCOHOL OPHT DROPS 15 ML BOTTLE EACHEYE SCH ×6 (02:00→22:00)
[2023-01-20] MEDS: MINERAL OIL/PETROLAT OPHT OINT 3.5 GM TUBE EACHEYE SCH ×3 (05:10→22:00)
[2023-01-20] MEDS: NUTRISOURCE FIBER 4 GM PACKET GT SCH ×3 (05:10→22:00)
[2023-01-20] MEDS: ACETYLCYSTEINE 10% 4ML VIAL NEB SCH ×2 (07:12→19:17)
[2023-01-20 08:00] VITALS: TEMP 98.4
[2023-01-20] MEDS: HYDROGEN PEROXIDE 3% 118 ML BOTTLE TP SCH ×2 (08:16→19:17)
[2023-01-20] MEDS: DOCUSATE SODIUM 100 MG/10 ML LIQUID UDC GT SCH ×2 (08:48→20:02)
[2023-01-20] MEDS: levETIRAcetam 500 MG/5 ML LIQUID UDC GT SCH ×2 (08:49→20:02)
[2023-01-20] MEDS: GEMFIBROZIL 600 MG TABLET GT SCH ×2 (08:49→17:00)
[2023-01-20] MEDS: CLOBAZAM 2.5 MG/ML GT SCH (08:50)
[2023-01-20] MEDS: LACOSAMIDE 100 MG/10 ML UDC GT SCH ×2 (08:50→20:02)
[2023-01-20] MEDS: REMEDY ESSENTIAL ZINC PASTE 113 GM TOP SCH ×2 (08:50→20:09)
[2023-01-20] MEDS: PROTEIN SUPPLEMENT (PROSTAT) 30 ML LIQUID GT SCH ×2 (08:50→20:02)
[2023-01-20] MEDS: HEPARIN SODIUM,PORCINE 5,000 UNITS/ML VIAL SQ SCH ×2 (08:53→20:09)
[2023-01-20 20:05] VITALS: TEMP 98.5
[2023-01-21] MEDS: ALBUTEROL SULFATE 1.25 MG/3 ML NEBU NEB SCH ×4 (01:40→19:46)
[2023-01-21] MEDS: IPRATROPIUM BROMIDE 0.5 MG/2.5 ML NEBU NEB SCH ×4 (01:40→19:46)
[2023-01-21] MEDS: POLYVINYL ALCOHOL OPHT DROPS 15 ML BOTTLE EACHEYE SCH ×6 (02:55→21:02)
[2023-01-21] MEDS: MINERAL OIL/PETROLAT OPHT OINT 3.5 GM TUBE EACHEYE SCH ×3 (05:42→21:02)
[2023-01-21] MEDS: NUTRISOURCE FIBER 4 GM PACKET GT SCH ×3 (05:42→21:02)
[2023-01-21] MEDS: ACETYLCYSTEINE 10% 4ML VIAL NEB SCH ×2 (07:18→19:46)
[2023-01-21 08:00] VITALS: TEMP 99
[2023-01-21] MEDS: HYDROGEN PEROXIDE 3% 118 ML BOTTLE TP SCH ×2 (08:38→19:46)
[2023-01-21] MEDS: CLOBAZAM 2.5 MG/ML GT SCH (09:31)
[2023-01-21] MEDS: REMEDY ESSENTIAL ZINC PASTE 113 GM TOP SCH ×2 (09:31→20:18)
[2023-01-21] MEDS: PROTEIN SUPPLEMENT (PROSTAT) 30 ML LIQUID GT SCH ×2 (09:31→20:16)
[2023-01-21] MEDS: levETIRAcetam 500 MG/5 ML LIQUID UDC GT SCH ×2 (09:31→20:14)
[2023-01-21] MEDS: BISACODYL 10 MG SUPP.RECT RC SCH (09:31)
[2023-01-21] MEDS: GEMFIBROZIL 600 MG TABLET GT SCH ×2 (09:31→17:35)
[2023-01-21] MEDS: DOCUSATE SODIUM 100 MG/10 ML LIQUID UDC GT SCH ×2 (09:32→20:10)
[2023-01-21] MEDS: HEPARIN SODIUM,PORCINE 5,000 UNITS/ML VIAL SQ SCH ×2 (09:38→20:31)
[2023-01-21] MEDS: LACOSAMIDE 100 MG/10 ML UDC GT SCH ×2 (09:40→20:17)
[2023-01-21 20:28] VITALS: TEMP 97.8
[2023-01-22] MEDS: JEVITY 1.2 1000 ML LIQUID GT PRN (01:07)
[2023-01-22] MEDS: ALBUTEROL SULFATE 1.25 MG/3 ML NEBU NEB SCH ×4 (01:30→19:23)
[2023-01-22] MEDS: IPRATROPIUM BROMIDE 0.5 MG/2.5 ML NEBU NEB SCH ×4 (01:30→19:23)
[2023-01-22] MEDS: POLYVINYL ALCOHOL OPHT DROPS 15 ML BOTTLE EACHEYE SCH ×6 (02:00→22:51)
[2023-01-22] MEDS: NUTRISOURCE FIBER 4 GM PACKET GT SCH ×3 (05:34→22:51)
[2023-01-22] MEDS: MINERAL OIL/PETROLAT OPHT OINT 3.5 GM TUBE EACHEYE SCH ×3 (05:34→22:51)
[2023-01-22 08:00] VITALS: TEMP 99.4
[2023-01-22] MEDS: HYDROGEN PEROXIDE 3% 118 ML BOTTLE TP SCH ×2 (08:27→19:23)
[2023-01-22] MEDS: ACETYLCYSTEINE 10% 4ML VIAL NEB SCH (08:27)
[2023-01-22] MEDS: DOCUSATE SODIUM 100 MG/10 ML LIQUID UDC GT SCH ×2 (08:30→20:30)
[2023-01-22] MEDS: levETIRAcetam 500 MG/5 ML LIQUID UDC GT SCH ×2 (08:34→20:34)
[2023-01-22] MEDS: PROTEIN SUPPLEMENT (PROSTAT) 30 ML LIQUID GT SCH ×2 (08:37→20:35)
[2023-01-22] MEDS: GEMFIBROZIL 600 MG TABLET GT SCH ×2 (08:37→16:54)
[2023-01-22] MEDS: CLOBAZAM 2.5 MG/ML GT SCH (08:49)
[2023-01-22] MEDS: LACOSAMIDE 100 MG/10 ML UDC GT SCH ×2 (08:50→20:36)
[2023-01-22] MEDS: REMEDY ESSENTIAL ZINC PASTE 113 GM TOP SCH ×2 (08:59→20:38)
[2023-01-22] MEDS: HEPARIN SODIUM,PORCINE 5,000 UNITS/ML VIAL SQ SCH ×2 (08:59→20:36)
[2023-01-22 20:07] VITALS: TEMP 97.9
[2023-01-23] MEDS: IPRATROPIUM BROMIDE 0.5 MG/2.5 ML NEBU NEB SCH ×4 (01:11→19:30)
[2023-01-23] MEDS: ALBUTEROL SULFATE 1.25 MG/3 ML NEBU NEB SCH ×4 (01:11→19:30)
[2023-01-23] MEDS: JEVITY 1.2 1000 ML LIQUID GT PRN (02:03)
[2023-01-23] MEDS: POLYVINYL ALCOHOL OPHT DROPS 15 ML BOTTLE EACHEYE SCH ×6 (02:03→22:29)
[2023-01-23] MEDS: MINERAL OIL/PETROLAT OPHT OINT 3.5 GM TUBE EACHEYE SCH ×3 (05:47→22:29)
[2023-01-23] MEDS: NUTRISOURCE FIBER 4 GM PACKET GT SCH ×3 (05:47→22:29)
[2023-01-23 08:00] VITALS: TEMP 98.2
[2023-01-23] MEDS: levETIRAcetam 500 MG/5 ML LIQUID UDC GT SCH ×2 (08:46→20:32)
[2023-01-23] MEDS: DOCUSATE SODIUM 100 MG/10 ML LIQUID UDC GT SCH ×2 (08:46→20:32)
[2023-01-23] MEDS: PROTEIN SUPPLEMENT (PROSTAT) 30 ML LIQUID GT SCH ×2 (08:47→20:33)
[2023-01-23] MEDS: GEMFIBROZIL 600 MG TABLET GT SCH ×2 (08:47→17:11)
[2023-01-23] MEDS: BISACODYL 10 MG SUPP.RECT RC SCH (08:47)
[2023-01-23] MEDS: LACOSAMIDE 100 MG/10 ML UDC GT SCH ×2 (08:47→20:34)
[2023-01-23] MEDS: REMEDY ESSENTIAL ZINC PASTE 113 GM TOP SCH ×2 (08:48→20:34)
[2023-01-23] MEDS: HEPARIN SODIUM,PORCINE 5,000 UNITS/ML VIAL SQ SCH ×2 (08:49→20:34)
[2023-01-23] MEDS: HYDROGEN PEROXIDE 3% 118 ML BOTTLE TP SCH ×2 (09:07→20:49)
[2023-01-23] MEDS: CLOBAZAM 10 MG TABLET GT SCH ×2 (13:41→22:40)
[2023-01-23 20:07] VITALS: TEMP 98.9
[2023-01-23] MEDS ORDERED: CLOBAZAM 10 MG TABLET GT SCH (21:00)
[2023-01-24] MEDS: POLYVINYL ALCOHOL OPHT DROPS 15 ML BOTTLE EACHEYE SCH ×6 (02:00→22:30)
[2023-01-24] MEDS: ALBUTEROL SULFATE 1.25 MG/3 ML NEBU NEB SCH ×4 (02:14→19:33)
[2023-01-24] MEDS: IPRATROPIUM BROMIDE 0.5 MG/2.5 ML NEBU NEB SCH ×4 (02:14→19:33)
[2023-01-24] MEDS: JEVITY 1.2 1000 ML LIQUID GT PRN (03:45)
[2023-01-24] MEDS: MINERAL OIL/PETROLAT OPHT OINT 3.5 GM TUBE EACHEYE SCH ×3 (05:02→22:30)
[2023-01-24] MEDS: NUTRISOURCE FIBER 4 GM PACKET GT SCH ×3 (05:02→22:30)
[2023-01-24 08:00] VITALS: TEMP 98.2
[2023-01-24] MEDS: DOCUSATE SODIUM 100 MG/10 ML LIQUID UDC GT SCH ×2 (08:27→20:04)
[2023-01-24] MEDS: levETIRAcetam 500 MG/5 ML LIQUID UDC GT SCH ×2 (08:27→20:05)
[2023-01-24] MEDS: GEMFIBROZIL 600 MG TABLET GT SCH ×2 (08:28→17:36)
[2023-01-24] MEDS: CLOBAZAM 10 MG TABLET GT SCH ×2 (08:29→20:06)
[2023-01-24] MEDS: PROTEIN SUPPLEMENT (PROSTAT) 30 ML LIQUID GT SCH ×2 (08:29→20:06)
[2023-01-24] MEDS: HEPARIN SODIUM,PORCINE 5,000 UNITS/ML VIAL SQ SCH ×2 (08:31→20:14)
[2023-01-24] MEDS: REMEDY ESSENTIAL ZINC PASTE 113 GM TOP SCH ×2 (08:31→20:18)
[2023-01-24] MEDS: HYDROGEN PEROXIDE 3% 118 ML BOTTLE TP SCH ×2 (09:23→21:48)
[2023-01-24] MEDS: LACOSAMIDE 100 MG/10 ML UDC GT SCH ×2 (09:52→20:08)
[2023-01-25] MEDS: IPRATROPIUM BROMIDE 0.5 MG/2.5 ML NEBU NEB SCH ×4 (01:15→19:20)
[2023-01-25] MEDS: ALBUTEROL SULFATE 1.25 MG/3 ML NEBU NEB SCH ×4 (01:15→19:20)
[2023-01-25] MEDS: POLYVINYL ALCOHOL OPHT DROPS 15 ML BOTTLE EACHEYE SCH ×6 (02:00→22:33)
[2023-01-25] MEDS: JEVITY 1.2 1000 ML LIQUID GT PRN (05:27)
[2023-01-25] MEDS: NUTRISOURCE FIBER 4 GM PACKET GT SCH ×3 (05:27→22:33)
[2023-01-25] MEDS: MINERAL OIL/PETROLAT OPHT OINT 3.5 GM TUBE EACHEYE SCH ×3 (05:27→22:33)
[2023-01-25 07:51] VITALS: TEMP 97.4
[2023-01-25] MEDS: DOCUSATE SODIUM 100 MG/10 ML LIQUID UDC GT SCH ×2 (08:23→20:14)
[2023-01-25] MEDS: levETIRAcetam 500 MG/5 ML LIQUID UDC GT SCH ×2 (08:23→20:14)
[2023-01-25] MEDS: LACOSAMIDE 100 MG/10 ML UDC GT SCH ×2 (08:24→20:16)
[2023-01-25] MEDS: CLOBAZAM 10 MG TABLET GT SCH ×2 (08:24→20:16)
[2023-01-25] MEDS: GEMFIBROZIL 600 MG TABLET GT SCH ×2 (08:24→17:34)
[2023-01-25] MEDS: PROTEIN SUPPLEMENT (PROSTAT) 30 ML LIQUID GT SCH ×2 (08:24→20:16)
[2023-01-25] MEDS: REMEDY ESSENTIAL ZINC PASTE 113 GM TOP SCH ×2 (08:25→20:17)
[2023-01-25] MEDS: BISACODYL 10 MG SUPP.RECT RC SCH (08:25)
[2023-01-25] MEDS: HEPARIN SODIUM,PORCINE 5,000 UNITS/ML VIAL SQ SCH ×2 (08:32→20:17)
[2023-01-25] MEDS: HYDROGEN PEROXIDE 3% 118 ML BOTTLE TP SCH ×2 (09:39→19:20)
[2023-01-25 20:00] VITALS: TEMP 98.5
[2023-01-26] MEDS: ALBUTEROL SULFATE 1.25 MG/3 ML NEBU NEB SCH ×4 (01:25→23:09)
[2023-01-26] MEDS: IPRATROPIUM BROMIDE 0.5 MG/2.5 ML NEBU NEB SCH ×4 (01:25→23:08)
[2023-01-26] MEDS: POLYVINYL ALCOHOL OPHT DROPS 15 ML BOTTLE EACHEYE SCH ×6 (02:00→22:00)
[2023-01-26] MEDS: MINERAL OIL/PETROLAT OPHT OINT 3.5 GM TUBE EACHEYE SCH ×3 (05:28→22:00)
[2023-01-26] MEDS: NUTRISOURCE FIBER 4 GM PACKET GT SCH ×3 (05:28→22:00)
[2023-01-26 07:50] VITALS: TEMP 97.7
[2023-01-26] MEDS: DOCUSATE SODIUM 100 MG/10 ML LIQUID UDC GT SCH ×2 (09:08→20:16)
[2023-01-26] MEDS: levETIRAcetam 500 MG/5 ML LIQUID UDC GT SCH ×2 (09:08→20:16)
[2023-01-26] MEDS: GEMFIBROZIL 600 MG TABLET GT SCH ×2 (09:09→17:29)
[2023-01-26] MEDS: REMEDY ESSENTIAL ZINC PASTE 113 GM TOP SCH ×2 (09:14→20:16)
[2023-01-26] MEDS: LACOSAMIDE 100 MG/10 ML UDC GT SCH ×2 (09:14→20:16)
[2023-01-26] MEDS: CLOBAZAM 10 MG TABLET GT SCH ×2 (09:14→20:16)
[2023-01-26] MEDS: PROTEIN SUPPLEMENT (PROSTAT) 30 ML LIQUID GT SCH ×2 (09:14→20:16)
[2023-01-26] MEDS: HEPARIN SODIUM,PORCINE 5,000 UNITS/ML VIAL SQ SCH ×2 (09:16→21:00)
[2023-01-26] MEDS: HYDROGEN PEROXIDE 3% 118 ML BOTTLE TP SCH ×2 (11:40→23:09)
[2023-01-26 20:58] VITALS: TEMP 99
[2023-01-27] MEDS: POLYVINYL ALCOHOL OPHT DROPS 15 ML BOTTLE EACHEYE SCH ×6 (02:00→22:25)
[2023-01-27] MEDS: IPRATROPIUM BROMIDE 0.5 MG/2.5 ML NEBU NEB SCH ×4 (03:05→19:28)
[2023-01-27] MEDS: ALBUTEROL SULFATE 1.25 MG/3 ML NEBU NEB SCH ×4 (03:06→19:28)
[2023-01-27] MEDS: NUTRISOURCE FIBER 4 GM PACKET GT SCH ×3 (05:03→22:25)
[2023-01-27] MEDS: MINERAL OIL/PETROLAT OPHT OINT 3.5 GM TUBE EACHEYE SCH ×3 (05:03→22:25)
[2023-01-27] MEDS: JEVITY 1.2 1000 ML LIQUID GT PRN (05:04)
[2023-01-27] MEDS: DOCUSATE SODIUM 100 MG/10 ML LIQUID UDC GT SCH ×2 (08:30→20:06)
[2023-01-27] MEDS: GEMFIBROZIL 600 MG TABLET GT SCH ×2 (08:30→17:03)
[2023-01-27] MEDS: levETIRAcetam 500 MG/5 ML LIQUID UDC GT SCH ×2 (08:30→20:08)
[2023-01-27] MEDS: HEPARIN SODIUM,PORCINE 5,000 UNITS/ML VIAL SQ SCH ×2 (08:31→20:10)
[2023-01-27] MEDS: REMEDY ESSENTIAL ZINC PASTE 113 GM TOP SCH ×2 (08:31→20:10)
[2023-01-27] MEDS: PROTEIN SUPPLEMENT (PROSTAT) 30 ML LIQUID GT SCH ×2 (08:31→20:08)
[2023-01-27] MEDS: LACOSAMIDE 100 MG/10 ML UDC GT SCH ×2 (08:31→20:09)
[2023-01-27] MEDS: CLOBAZAM 10 MG TABLET GT SCH ×2 (08:39→20:08)
[2023-01-27] MEDS: HYDROGEN PEROXIDE 3% 118 ML BOTTLE TP SCH ×2 (09:25→21:14)
[2023-01-27 12:21] VITALS: TEMP 98.8
[2023-01-27 16:40] VITALS: O2SAT 99
[2023-01-27 21:02] VITALS: TEMP 98.9
[2023-01-28] MEDS: ALBUTEROL SULFATE 1.25 MG/3 ML NEBU NEB SCH ×4 (00:54→19:25)
[2023-01-28] MEDS: IPRATROPIUM BROMIDE 0.5 MG/2.5 ML NEBU NEB SCH ×4 (00:54→19:25)
[2023-01-28] MEDS: POLYVINYL ALCOHOL OPHT DROPS 15 ML BOTTLE EACHEYE SCH ×6 (02:00→22:54)
[2023-01-28] MEDS: NUTRISOURCE FIBER 4 GM PACKET GT SCH ×3 (05:19→22:54)
[2023-01-28] MEDS: MINERAL OIL/PETROLAT OPHT OINT 3.5 GM TUBE EACHEYE SCH ×3 (05:19→22:54)
[2023-01-28 08:00] VITALS: TEMP 99
[2023-01-28] MEDS: BISACODYL 10 MG SUPP.RECT RC SCH (09:00)
[2023-01-28] MEDS: REMEDY ESSENTIAL ZINC PASTE 113 GM TOP SCH ×2 (09:00→20:24)
[2023-01-28] MEDS: HEPARIN SODIUM,PORCINE 5,000 UNITS/ML VIAL SQ SCH ×2 (09:00→20:22)
[2023-01-28] MEDS: DOCUSATE SODIUM 100 MG/10 ML LIQUID UDC GT SCH ×2 (09:07→20:19)
[2023-01-28] MEDS: GEMFIBROZIL 600 MG TABLET GT SCH ×2 (09:08→16:44)
[2023-01-28] MEDS: LACOSAMIDE 100 MG/10 ML UDC GT SCH ×2 (09:08→20:20)
[2023-01-28] MEDS: PROTEIN SUPPLEMENT (PROSTAT) 30 ML LIQUID GT SCH ×2 (09:08→20:20)
[2023-01-28] MEDS: levETIRAcetam 500 MG/5 ML LIQUID UDC GT SCH ×2 (09:08→20:20)
[2023-01-28] MEDS: CLOBAZAM 10 MG TABLET GT SCH ×2 (09:08→20:20)
[2023-01-28] MEDS: HYDROGEN PEROXIDE 3% 118 ML BOTTLE TP SCH ×2 (09:18→19:25)
[2023-01-28 20:00] VITALS: TEMP 97.7
[2023-01-29] MEDS: IPRATROPIUM BROMIDE 0.5 MG/2.5 ML NEBU NEB SCH ×4 (01:18→19:08)
[2023-01-29] MEDS: ALBUTEROL SULFATE 1.25 MG/3 ML NEBU NEB SCH ×4 (01:18→19:08)
[2023-01-29] MEDS: POLYVINYL ALCOHOL OPHT DROPS 15 ML BOTTLE EACHEYE SCH ×6 (02:35→22:00)
[2023-01-29] MEDS: NUTRISOURCE FIBER 4 GM PACKET GT SCH ×3 (05:39→22:00)
[2023-01-29] MEDS: MINERAL OIL/PETROLAT OPHT OINT 3.5 GM TUBE EACHEYE SCH ×3 (05:39→22:00)
[2023-01-29 08:00] VITALS: TEMP 97.6
[2023-01-29] MEDS: GEMFIBROZIL 600 MG TABLET GT SCH ×2 (08:09→17:07)
[2023-01-29] MEDS: DOCUSATE SODIUM 100 MG/10 ML LIQUID UDC GT SCH ×2 (08:09→21:10)
[2023-01-29] MEDS: PROTEIN SUPPLEMENT (PROSTAT) 30 ML LIQUID GT SCH ×2 (08:09→21:10)
[2023-01-29] MEDS: LACOSAMIDE 100 MG/10 ML UDC GT SCH ×2 (08:09→21:10)
[2023-01-29] MEDS: levETIRAcetam 500 MG/5 ML LIQUID UDC GT SCH ×2 (08:09→21:10)
[2023-01-29] MEDS: CLOBAZAM 10 MG TABLET GT SCH ×2 (08:09→21:10)
[2023-01-29] MEDS: HEPARIN SODIUM,PORCINE 5,000 UNITS/ML VIAL SQ SCH ×2 (08:11→21:02)
[2023-01-29] MEDS: REMEDY ESSENTIAL ZINC PASTE 113 GM TOP SCH ×2 (08:11→21:11)
[2023-01-29] MEDS: HYDROGEN PEROXIDE 3% 118 ML BOTTLE TP SCH ×2 (08:12→19:08)
[2023-01-29 21:16] VITALS: TEMP 97.6
[2023-01-30 00:02] VITALS: TEMP 97.6
[2023-01-30] MEDS: IPRATROPIUM BROMIDE 0.5 MG/2.5 ML NEBU NEB SCH ×4 (00:58→19:25)
[2023-01-30] MEDS: ALBUTEROL SULFATE 1.25 MG/3 ML NEBU NEB SCH ×4 (00:58→19:25)
[2023-01-30] MEDS: POLYVINYL ALCOHOL OPHT DROPS 15 ML BOTTLE EACHEYE SCH ×6 (02:00→21:03)
[2023-01-30] MEDS: MINERAL OIL/PETROLAT OPHT OINT 3.5 GM TUBE EACHEYE SCH ×3 (05:40→21:03)
[2023-01-30] MEDS: NUTRISOURCE FIBER 4 GM PACKET GT SCH ×3 (05:40→21:03)
[2023-01-30 08:00] VITALS: TEMP 98
[2023-01-30] MEDS: GEMFIBROZIL 600 MG TABLET GT SCH ×2 (08:28→17:29)
[2023-01-30] MEDS: DOCUSATE SODIUM 100 MG/10 ML LIQUID UDC GT SCH ×2 (08:28→20:34)
[2023-01-30] MEDS: PROTEIN SUPPLEMENT (PROSTAT) 30 ML LIQUID GT SCH ×2 (08:28→20:34)
[2023-01-30] MEDS: CLOBAZAM 10 MG TABLET GT SCH ×2 (08:28→21:03)
[2023-01-30] MEDS: levETIRAcetam 500 MG/5 ML LIQUID UDC GT SCH ×2 (08:28→20:34)
[2023-01-30] MEDS: HEPARIN SODIUM,PORCINE 5,000 UNITS/ML VIAL SQ SCH ×2 (08:29→20:35)
[2023-01-30] MEDS: REMEDY ESSENTIAL ZINC PASTE 113 GM TOP SCH ×2 (08:36→20:35)
[2023-01-30] MEDS: LACOSAMIDE 100 MG/10 ML UDC GT SCH ×2 (08:36→21:03)
[2023-01-30] MEDS: HYDROGEN PEROXIDE 3% 118 ML BOTTLE TP SCH ×2 (08:36→21:03)
[2023-01-30] MEDS: BISACODYL 10 MG SUPP.RECT RC SCH (08:36)
[2023-01-30 19:55] VITALS: TEMP 96.7
[2023-01-31] MEDS: ALBUTEROL SULFATE 1.25 MG/3 ML NEBU NEB SCH ×4 (00:35→19:09)
[2023-01-31] MEDS: IPRATROPIUM BROMIDE 0.5 MG/2.5 ML NEBU NEB SCH ×4 (00:35→19:09)
[2023-01-31] MEDS: POLYVINYL ALCOHOL OPHT DROPS 15 ML BOTTLE EACHEYE SCH ×6 (02:00→22:31)
[2023-01-31] MEDS: MINERAL OIL/PETROLAT OPHT OINT 3.5 GM TUBE EACHEYE SCH ×3 (06:33→22:31)
[2023-01-31] MEDS: NUTRISOURCE FIBER 4 GM PACKET GT SCH ×3 (06:33→22:31)
[2023-01-31 07:44] VITALS: TEMP 97.3
[2023-01-31] MEDS: DOCUSATE SODIUM 100 MG/10 ML LIQUID UDC GT SCH ×2 (08:47→20:40)
[2023-01-31] MEDS: GEMFIBROZIL 600 MG TABLET GT SCH ×2 (08:49→17:00)
[2023-01-31] MEDS: levETIRAcetam 500 MG/5 ML LIQUID UDC GT SCH ×2 (08:49→20:40)
[2023-01-31] MEDS: PROTEIN SUPPLEMENT (PROSTAT) 30 ML LIQUID GT SCH ×2 (08:50→20:40)
[2023-01-31] MEDS: REMEDY ESSENTIAL ZINC PASTE 113 GM TOP SCH ×2 (08:56→20:41)
[2023-01-31] MEDS: LACOSAMIDE 100 MG/10 ML UDC GT SCH ×2 (08:56→20:40)
[2023-01-31] MEDS: HEPARIN SODIUM,PORCINE 5,000 UNITS/ML VIAL SQ SCH ×2 (08:58→20:41)
[2023-01-31] MEDS: CLOBAZAM 10 MG TABLET GT SCH ×2 (09:02→20:40)
[2023-01-31] MEDS: HYDROGEN PEROXIDE 3% 118 ML BOTTLE TP SCH ×2 (09:17→19:09)
[2023-01-31] MEDS: JEVITY 1.2 1000 ML LIQUID GT PRN (15:15)
[2023-02-01] MEDS: IPRATROPIUM BROMIDE 0.5 MG/2.5 ML NEBU NEB SCH ×4 (01:17→18:57)
[2023-02-01] MEDS: ALBUTEROL SULFATE 1.25 MG/3 ML NEBU NEB SCH ×4 (01:17→18:57)
[2023-02-01] MEDS: POLYVINYL ALCOHOL OPHT DROPS 15 ML BOTTLE EACHEYE SCH ×6 (01:45→22:40)
[2023-02-01] MEDS: MINERAL OIL/PETROLAT OPHT OINT 3.5 GM TUBE EACHEYE SCH ×3 (05:06→22:41)
[2023-02-01] MEDS: NUTRISOURCE FIBER 4 GM PACKET GT SCH ×3 (05:06→22:41)
[2023-02-01] MEDS: HYDROGEN PEROXIDE 3% 118 ML BOTTLE TP SCH ×2 (07:38→18:57)
[2023-02-01 07:39] VITALS: TEMP 98.3
[2023-02-01] MEDS: DOCUSATE SODIUM 100 MG/10 ML LIQUID UDC GT SCH ×2 (08:46→20:50)
[2023-02-01] MEDS: levETIRAcetam 500 MG/5 ML LIQUID UDC GT SCH ×2 (08:50→20:50)
[2023-02-01] MEDS: GEMFIBROZIL 600 MG TABLET GT SCH ×2 (08:54→17:46)
[2023-02-01] MEDS: CLOBAZAM 10 MG TABLET GT SCH ×2 (09:00→20:50)
[2023-02-01] MEDS: LACOSAMIDE 100 MG/10 ML UDC GT SCH ×2 (09:01→20:50)
[2023-02-01] MEDS: PROTEIN SUPPLEMENT (PROSTAT) 30 ML LIQUID GT SCH ×2 (09:01→20:50)
[2023-02-01] MEDS: BISACODYL 10 MG SUPP.RECT RC SCH (09:02)
[2023-02-01] MEDS: HEPARIN SODIUM,PORCINE 5,000 UNITS/ML VIAL SQ SCH ×2 (09:04→20:51)
[2023-02-01] MEDS: REMEDY ESSENTIAL ZINC PASTE 113 GM TOP SCH ×2 (09:08→20:51)
[2023-02-01] MEDS: JEVITY 1.2 1000 ML LIQUID GT PRN (18:08)
[2023-02-01 20:00] VITALS: TEMP 97.5
[2023-02-02] MEDS: IPRATROPIUM BROMIDE 0.5 MG/2.5 ML NEBU NEB SCH ×4 (01:17→19:35)
[2023-02-02] MEDS: ALBUTEROL SULFATE 1.25 MG/3 ML NEBU NEB SCH ×4 (01:17→19:35)
[2023-02-02] MEDS: POLYVINYL ALCOHOL OPHT DROPS 15 ML BOTTLE EACHEYE SCH ×6 (02:09→22:25)
[2023-02-02] MEDS: MINERAL OIL/PETROLAT OPHT OINT 3.5 GM TUBE EACHEYE SCH ×3 (05:14→22:25)
[2023-02-02] MEDS: NUTRISOURCE FIBER 4 GM PACKET GT SCH ×3 (05:14→22:25)
[2023-02-02 07:39] VITALS: TEMP 97.6
[2023-02-02] MEDS: HYDROGEN PEROXIDE 3% 118 ML BOTTLE TP SCH ×2 (09:13→21:00)
[2023-02-02] MEDS: levETIRAcetam 500 MG/5 ML LIQUID UDC GT SCH ×2 (09:29→20:40)
[2023-02-02] MEDS: DOCUSATE SODIUM 100 MG/10 ML LIQUID UDC GT SCH ×2 (09:29→20:40)
[2023-02-02] MEDS: HEPARIN SODIUM,PORCINE 5,000 UNITS/ML VIAL SQ SCH ×2 (09:31→21:00)
[2023-02-02] MEDS: LACOSAMIDE 100 MG/10 ML UDC GT SCH ×2 (09:36→20:40)
[2023-02-02] MEDS: CLOBAZAM 10 MG TABLET GT SCH ×2 (09:37→20:40)
[2023-02-02] MEDS: GEMFIBROZIL 600 MG TABLET GT SCH ×2 (09:38→17:28)
[2023-02-02] MEDS: REMEDY ESSENTIAL ZINC PASTE 113 GM TOP SCH ×2 (09:40→20:40)
[2023-02-02] MEDS: PROTEIN SUPPLEMENT (PROSTAT) 30 ML LIQUID GT SCH ×2 (09:40→20:40)
[2023-02-02] MEDS: JEVITY 1.2 1000 ML LIQUID GT PRN (20:30)
[2023-02-02 20:43] VITALS: TEMP 98.2
[2023-02-03] MEDS: IPRATROPIUM BROMIDE 0.5 MG/2.5 ML NEBU NEB SCH ×4 (01:55→20:14)
[2023-02-03] MEDS: ALBUTEROL SULFATE 1.25 MG/3 ML NEBU NEB SCH ×4 (01:55→20:14)
[2023-02-03] MEDS: POLYVINYL ALCOHOL OPHT DROPS 15 ML BOTTLE EACHEYE SCH ×6 (02:00→21:11)
[2023-02-03] MEDS: MINERAL OIL/PETROLAT OPHT OINT 3.5 GM TUBE EACHEYE SCH ×3 (05:43→21:11)
[2023-02-03] MEDS: NUTRISOURCE FIBER 4 GM PACKET GT SCH ×3 (05:43→21:12)
[2023-02-03 07:35] VITALS: TEMP 97.8
[2023-02-03] MEDS: levETIRAcetam 500 MG/5 ML LIQUID UDC GT SCH ×2 (08:28→20:32)
[2023-02-03] MEDS: HEPARIN SODIUM,PORCINE 5,000 UNITS/ML VIAL SQ SCH ×2 (08:28→20:32)
[2023-02-03] MEDS: CLOBAZAM 10 MG TABLET GT SCH ×2 (08:28→20:32)
[2023-02-03] MEDS: PROTEIN SUPPLEMENT (PROSTAT) 30 ML LIQUID GT SCH ×2 (08:28→20:32)
[2023-02-03] MEDS: LACOSAMIDE 100 MG/10 ML UDC GT SCH ×2 (08:28→20:32)
[2023-02-03] MEDS: DOCUSATE SODIUM 100 MG/10 ML LIQUID UDC GT SCH ×2 (08:28→20:32)
[2023-02-03] MEDS: GEMFIBROZIL 600 MG TABLET GT SCH ×2 (08:28→16:37)
[2023-02-03] MEDS: REMEDY ESSENTIAL ZINC PASTE 113 GM TOP SCH ×2 (08:29→20:33)
[2023-02-03] MEDS: HYDROGEN PEROXIDE 3% 118 ML BOTTLE TP SCH ×2 (10:00→20:14)
[2023-02-03 20:38] VITALS: TEMP 98.4
[2023-02-04] MEDS: POLYVINYL ALCOHOL OPHT DROPS 15 ML BOTTLE EACHEYE SCH ×6 (02:00→22:00)
[2023-02-04] MEDS: ALBUTEROL SULFATE 1.25 MG/3 ML NEBU NEB SCH ×4 (02:25→19:15)
[2023-02-04] MEDS: IPRATROPIUM BROMIDE 0.5 MG/2.5 ML NEBU NEB SCH ×4 (02:25→19:15)
[2023-02-04] MEDS: NUTRISOURCE FIBER 4 GM PACKET GT SCH ×3 (05:17→22:00)
[2023-02-04] MEDS: MINERAL OIL/PETROLAT OPHT OINT 3.5 GM TUBE EACHEYE SCH ×3 (05:17→22:00)
[2023-02-04 08:00] VITALS: TEMP 98.8
[2023-02-04] MEDS: DOCUSATE SODIUM 100 MG/10 ML LIQUID UDC GT SCH ×2 (08:36→20:33)
[2023-02-04] MEDS: PROTEIN SUPPLEMENT (PROSTAT) 30 ML LIQUID GT SCH ×2 (08:36→20:33)
[2023-02-04] MEDS: LACOSAMIDE 100 MG/10 ML UDC GT SCH ×2 (08:36→20:33)
[2023-02-04] MEDS: BISACODYL 10 MG SUPP.RECT RC SCH (08:36)
[2023-02-04] MEDS: GEMFIBROZIL 600 MG TABLET GT SCH ×2 (08:36→17:28)
[2023-02-04] MEDS: levETIRAcetam 500 MG/5 ML LIQUID UDC GT SCH ×2 (08:36→20:33)
[2023-02-04] MEDS: CLOBAZAM 10 MG TABLET GT SCH ×2 (08:36→20:33)
[2023-02-04] MEDS: REMEDY ESSENTIAL ZINC PASTE 113 GM TOP SCH ×2 (08:37→20:34)
[2023-02-04] MEDS: HEPARIN SODIUM,PORCINE 5,000 UNITS/ML VIAL SQ SCH ×2 (08:37→20:34)
[2023-02-04] MEDS: HYDROGEN PEROXIDE 3% 118 ML BOTTLE TP SCH ×2 (09:39→21:00)
[2023-02-04] MEDS: BENZOYL PEROXIDE 10% GEL 60 GM TUBE TP SCH (13:00)
[2023-02-04 19:49] VITALS: TEMP 97.1
[2023-02-05] MEDS: IPRATROPIUM BROMIDE 0.5 MG/2.5 ML NEBU NEB SCH ×4 (01:31→19:05)
[2023-02-05] MEDS: ALBUTEROL SULFATE 1.25 MG/3 ML NEBU NEB SCH ×4 (01:31→19:05)
[2023-02-05] MEDS: POLYVINYL ALCOHOL OPHT DROPS 15 ML BOTTLE EACHEYE SCH ×6 (02:04→22:37)
[2023-02-05] MEDS: NUTRISOURCE FIBER 4 GM PACKET GT SCH ×3 (05:53→22:37)
[2023-02-05] MEDS: MINERAL OIL/PETROLAT OPHT OINT 3.5 GM TUBE EACHEYE SCH ×3 (05:53→22:37)
[2023-02-05] MEDS: HYDROGEN PEROXIDE 3% 118 ML BOTTLE TP SCH ×2 (07:31→19:05)
[2023-02-05 08:00] VITALS: TEMP 97.6
[2023-02-05] MEDS: levETIRAcetam 500 MG/5 ML LIQUID UDC GT SCH ×2 (08:49→20:52)
[2023-02-05] MEDS: DOCUSATE SODIUM 100 MG/10 ML LIQUID UDC GT SCH ×2 (08:49→20:52)
[2023-02-05] MEDS: PROTEIN SUPPLEMENT (PROSTAT) 30 ML LIQUID GT SCH ×2 (08:50→20:52)
[2023-02-05] MEDS: GEMFIBROZIL 600 MG TABLET GT SCH ×2 (08:50→17:20)
[2023-02-05] MEDS: REMEDY ESSENTIAL ZINC PASTE 113 GM TOP SCH ×2 (08:50→20:53)
[2023-02-05] MEDS: HEPARIN SODIUM,PORCINE 5,000 UNITS/ML VIAL SQ SCH ×2 (08:59→20:53)
[2023-02-05] MEDS: CLOBAZAM 10 MG TABLET GT SCH ×2 (09:00→20:52)
[2023-02-05] MEDS: LACOSAMIDE 100 MG/10 ML UDC GT SCH ×2 (09:00→20:52)
[2023-02-05] MEDS: BENZOYL PEROXIDE 10% GEL 60 GM TUBE TP SCH (10:00)
[2023-02-05] MEDS: JEVITY 1.2 1000 ML LIQUID GT PRN (17:20)
[2023-02-05 20:03] VITALS: TEMP 97.3
[2023-02-06] MEDS: IPRATROPIUM BROMIDE 0.5 MG/2.5 ML NEBU NEB SCH ×4 (00:40→19:17)
[2023-02-06] MEDS: ALBUTEROL SULFATE 1.25 MG/3 ML NEBU NEB SCH ×4 (00:40→19:17)
[2023-02-06] MEDS: POLYVINYL ALCOHOL OPHT DROPS 15 ML BOTTLE EACHEYE SCH ×6 (02:00→22:22)
[2023-02-06] MEDS: MINERAL OIL/PETROLAT OPHT OINT 3.5 GM TUBE EACHEYE SCH ×3 (05:46→22:22)
[2023-02-06] MEDS: NUTRISOURCE FIBER 4 GM PACKET GT SCH ×3 (05:46→22:22)
[2023-02-06 07:46] VITALS: TEMP 98.6
[2023-02-06] MEDS: HYDROGEN PEROXIDE 3% 118 ML BOTTLE TP SCH ×2 (09:00→19:17)
[2023-02-06] MEDS: levETIRAcetam 500 MG/5 ML LIQUID UDC GT SCH ×2 (09:18→20:26)
[2023-02-06] MEDS: DOCUSATE SODIUM 100 MG/10 ML LIQUID UDC GT SCH ×2 (09:18→20:24)
[2023-02-06] MEDS: CLOBAZAM 10 MG TABLET GT SCH ×2 (09:19→20:26)
[2023-02-06] MEDS: REMEDY ESSENTIAL ZINC PASTE 113 GM TOP SCH ×2 (09:19→20:28)
[2023-02-06] MEDS: BISACODYL 10 MG SUPP.RECT RC SCH (09:19)
[2023-02-06] MEDS: PROTEIN SUPPLEMENT (PROSTAT) 30 ML LIQUID GT SCH ×2 (09:19→20:26)
[2023-02-06] MEDS: LACOSAMIDE 100 MG/10 ML UDC GT SCH ×2 (09:19→20:26)
[2023-02-06] MEDS: GEMFIBROZIL 600 MG TABLET GT SCH ×2 (09:19→17:42)
[2023-02-06] MEDS: BENZOYL PEROXIDE 10% GEL 60 GM TUBE TP SCH (09:19)
[2023-02-06] MEDS: HEPARIN SODIUM,PORCINE 5,000 UNITS/ML VIAL SQ SCH ×2 (09:23→20:27)
[2023-02-06 20:11] VITALS: TEMP 98.7
[2023-02-06] MEDS: JEVITY 1.2 1000 ML LIQUID GT PRN (20:30)
[2023-02-07] MEDS: POLYVINYL ALCOHOL OPHT DROPS 15 ML BOTTLE EACHEYE SCH ×6 (02:00→22:32)
[2023-02-07] MEDS: IPRATROPIUM BROMIDE 0.5 MG/2.5 ML NEBU NEB SCH ×4 (02:08→19:08)
[2023-02-07] MEDS: ALBUTEROL SULFATE 1.25 MG/3 ML NEBU NEB SCH ×4 (02:08→19:08)
[2023-02-07] MEDS: NUTRISOURCE FIBER 4 GM PACKET GT SCH ×3 (05:53→22:32)
[2023-02-07] MEDS: MINERAL OIL/PETROLAT OPHT OINT 3.5 GM TUBE EACHEYE SCH ×3 (05:53→22:32)
[2023-02-07 07:52] VITALS: TEMP 97.4
[2023-02-07] MEDS: DOCUSATE SODIUM 100 MG/10 ML LIQUID UDC GT SCH ×2 (08:39→20:26)
[2023-02-07] MEDS: GEMFIBROZIL 600 MG TABLET GT SCH ×2 (08:40→16:00)
[2023-02-07] MEDS: levETIRAcetam 500 MG/5 ML LIQUID UDC GT SCH ×2 (08:40→20:26)
[2023-02-07] MEDS: PROTEIN SUPPLEMENT (PROSTAT) 30 ML LIQUID GT SCH ×2 (08:41→20:26)
[2023-02-07] MEDS: LACOSAMIDE 100 MG/10 ML UDC GT SCH ×2 (08:44→20:26)
[2023-02-07] MEDS: CLOBAZAM 10 MG TABLET GT SCH ×2 (08:44→20:26)
[2023-02-07] MEDS: REMEDY ESSENTIAL ZINC PASTE 113 GM TOP SCH ×2 (08:45→20:27)
[2023-02-07] MEDS: HEPARIN SODIUM,PORCINE 5,000 UNITS/ML VIAL SQ SCH ×2 (08:45→20:27)
[2023-02-07] MEDS: BENZOYL PEROXIDE 10% GEL 60 GM TUBE TP SCH (08:45)
[2023-02-07] MEDS: HYDROGEN PEROXIDE 3% 118 ML BOTTLE TP SCH ×2 (08:48→19:08)
[2023-02-07 20:26] VITALS: TEMP 97.7
[2023-02-08] MEDS: JEVITY 1.2 1000 ML LIQUID GT PRN (00:05)
[2023-02-08] MEDS: ALBUTEROL SULFATE 1.25 MG/3 ML NEBU NEB SCH ×3 (01:08→19:08)
[2023-02-08] MEDS: IPRATROPIUM BROMIDE 0.5 MG/2.5 ML NEBU NEB SCH ×3 (01:08→19:08)
[2023-02-08] MEDS: POLYVINYL ALCOHOL OPHT DROPS 15 ML BOTTLE EACHEYE SCH ×6 (02:00→22:04)
[2023-02-08] MEDS: NUTRISOURCE FIBER 4 GM PACKET GT SCH ×3 (05:28→21:24)
[2023-02-08] MEDS: MINERAL OIL/PETROLAT OPHT OINT 3.5 GM TUBE EACHEYE SCH ×3 (05:28→22:04)
[2023-02-08 07:32] VITALS: TEMP 98.2
[2023-02-08] MEDS: HYDROGEN PEROXIDE 3% 118 ML BOTTLE TP SCH ×2 (07:40→19:08)
[2023-02-08] MEDS: levETIRAcetam 500 MG/5 ML LIQUID UDC GT SCH ×2 (08:59→21:00)
[2023-02-08] MEDS: DOCUSATE SODIUM 100 MG/10 ML LIQUID UDC GT SCH ×2 (08:59→21:24)
[2023-02-08] MEDS: LACOSAMIDE 100 MG/10 ML UDC GT SCH ×2 (09:00→21:00)
[2023-02-08] MEDS: PROTEIN SUPPLEMENT (PROSTAT) 30 ML LIQUID GT SCH ×2 (09:00→21:24)
[2023-02-08] MEDS: GEMFIBROZIL 600 MG TABLET GT SCH ×2 (09:00→16:51)
[2023-02-08] MEDS: BISACODYL 10 MG SUPP.RECT RC SCH (09:00)
[2023-02-08] MEDS: HEPARIN SODIUM,PORCINE 5,000 UNITS/ML VIAL SQ SCH ×2 (09:00→21:00)
[2023-02-08] MEDS: CLOBAZAM 10 MG TABLET GT SCH ×2 (09:00→21:00)
[2023-02-08] MEDS: BENZOYL PEROXIDE 10% GEL 60 GM TUBE TP SCH (09:01)
[2023-02-08] MEDS: REMEDY ESSENTIAL ZINC PASTE 113 GM TOP SCH ×2 (09:01→21:24)
[2023-02-08 20:00] VITALS: TEMP 98.5
[2023-02-09] MEDS: IPRATROPIUM BROMIDE 0.5 MG/2.5 ML NEBU NEB SCH ×4 (01:27→19:50)
[2023-02-09] MEDS: ALBUTEROL SULFATE 1.25 MG/3 ML NEBU NEB SCH ×4 (01:27→19:50)
[2023-02-09] MEDS: POLYVINYL ALCOHOL OPHT DROPS 15 ML BOTTLE EACHEYE SCH ×6 (02:00→22:38)
[2023-02-09] MEDS: MINERAL OIL/PETROLAT OPHT OINT 3.5 GM TUBE EACHEYE SCH ×3 (06:37→22:38)
[2023-02-09] MEDS: NUTRISOURCE FIBER 4 GM PACKET GT SCH ×3 (06:37→22:38)
[2023-02-09 07:34] VITALS: TEMP 97.6
[2023-02-09] MEDS: HYDROGEN PEROXIDE 3% 118 ML BOTTLE TP SCH ×2 (07:40→21:00)
[2023-02-09] MEDS: CLOBAZAM 10 MG TABLET GT SCH ×2 (09:43→20:47)
[2023-02-09] MEDS: levETIRAcetam 500 MG/5 ML LIQUID UDC GT SCH ×2 (09:43→20:44)
[2023-02-09] MEDS: PROTEIN SUPPLEMENT (PROSTAT) 30 ML LIQUID GT SCH ×2 (09:43→20:44)
[2023-02-09] MEDS: GEMFIBROZIL 600 MG TABLET GT SCH ×2 (09:43→16:27)
[2023-02-09] MEDS: DOCUSATE SODIUM 100 MG/10 ML LIQUID UDC GT SCH ×2 (09:43→20:44)
[2023-02-09] MEDS: LACOSAMIDE 100 MG/10 ML UDC GT SCH ×2 (09:43→20:47)
[2023-02-09] MEDS: REMEDY ESSENTIAL ZINC PASTE 113 GM TOP SCH ×2 (09:44→20:47)
[2023-02-09] MEDS: HEPARIN SODIUM,PORCINE 5,000 UNITS/ML VIAL SQ SCH ×2 (09:44→21:00)
[2023-02-09] MEDS: BENZOYL PEROXIDE 10% GEL 60 GM TUBE TP SCH (09:44)
[2023-02-09 20:00] VITALS: TEMP 99.6
[2023-02-10] MEDS: ALBUTEROL SULFATE 1.25 MG/3 ML NEBU NEB SCH ×4 (01:51→19:09)
[2023-02-10] MEDS: IPRATROPIUM BROMIDE 0.5 MG/2.5 ML NEBU NEB SCH ×4 (01:51→19:09)
[2023-02-10] MEDS: POLYVINYL ALCOHOL OPHT DROPS 15 ML BOTTLE EACHEYE SCH ×6 (02:00→22:00)
[2023-02-10] MEDS: MINERAL OIL/PETROLAT OPHT OINT 3.5 GM TUBE EACHEYE SCH ×3 (05:15→22:00)
[2023-02-10] MEDS: NUTRISOURCE FIBER 4 GM PACKET GT SCH ×3 (05:15→22:00)
[2023-02-10] MEDS: JEVITY 1.2 1000 ML LIQUID GT PRN (05:16)
[2023-02-10 07:42] VITALS: TEMP 97.7
[2023-02-10] MEDS: REMEDY ESSENTIAL ZINC PASTE 113 GM TOP SCH ×2 (09:00→21:00)
[2023-02-10] MEDS: BENZOYL PEROXIDE 10% GEL 60 GM TUBE TP SCH (09:00)
[2023-02-10] MEDS: HEPARIN SODIUM,PORCINE 5,000 UNITS/ML VIAL SQ SCH ×2 (09:00→20:40)
[2023-02-10] MEDS: HYDROGEN PEROXIDE 3% 118 ML BOTTLE TP SCH ×2 (09:41→19:09)
[2023-02-10] MEDS: levETIRAcetam 500 MG/5 ML LIQUID UDC GT SCH ×2 (09:59→21:00)
[2023-02-10] MEDS: DOCUSATE SODIUM 100 MG/10 ML LIQUID UDC GT SCH ×2 (09:59→21:00)
[2023-02-10] MEDS: PROTEIN SUPPLEMENT (PROSTAT) 30 ML LIQUID GT SCH ×2 (09:59→21:00)
[2023-02-10] MEDS: CLOBAZAM 10 MG TABLET GT SCH ×2 (09:59→21:00)
[2023-02-10] MEDS: GEMFIBROZIL 600 MG TABLET GT SCH ×2 (09:59→17:15)
[2023-02-10] MEDS: LACOSAMIDE 100 MG/10 ML UDC GT SCH ×2 (09:59→21:00)
[2023-02-10 19:50] VITALS: TEMP 98
[2023-02-11] MEDS: IPRATROPIUM BROMIDE 0.5 MG/2.5 ML NEBU NEB SCH ×4 (00:40→20:00)
[2023-02-11] MEDS: ALBUTEROL SULFATE 1.25 MG/3 ML NEBU NEB SCH ×4 (00:40→20:00)
[2023-02-11] MEDS: POLYVINYL ALCOHOL OPHT DROPS 15 ML BOTTLE EACHEYE SCH ×6 (02:05→22:00)
[2023-02-11] MEDS: MINERAL OIL/PETROLAT OPHT OINT 3.5 GM TUBE EACHEYE SCH ×3 (06:27→22:00)
[2023-02-11] MEDS: NUTRISOURCE FIBER 4 GM PACKET GT SCH ×3 (06:27→22:00)
[2023-02-11 07:33] LABS: BASOPHILS % (AUTO) 0.6 % (0.0-2.0); EOSINOPHILS # (AUTO) 0.3 K/uL (0.0-0.7); EOSINOPHILS % (AUTO) 3.6 % (0.0-7.0); HEMATOCRIT 37.4 % (36.7-47.1); LYMPHOCYTES # (AUTO) 2.4 K/uL (0.8-4.8); LYMPHOCYTES % (AUTO) 34.9 % (20.5-51.5); MEAN CORPUSCULAR HEMOGLOBIN 33.2 uug (23.8-33.4); MEAN CORPUSCULAR HGB CONC 35 g/dL (32.5-36.3); MEAN CORPUSCULAR VOLUME 95.7 fL (73.0-96.2); MONOCYTES # (AUTO) 0.6 K/uL (0.1-1.30); MONOCYTES % (AUTO) 8.2 % (0.0-11.0); NEUTROPHILS # (AUTO) 3.7 K/uL (1.8-8.9); NEUTROPHILS % (AUTO) 52.7 % (38.5-71.5); PLATELET COUNT (AUTO) 383 K/uL (152-348); RED BLOOD CELL COUNT(AUTO) 3.91 MIL/uL (4.06-5.63); RED CELL DISTRIBUTION WIDTH 15.7 % (12.1-16.2)
[2023-02-11 07:47] LABS: ALBUMIN 3.7 g/dL (3.4-5.0); BILIRUBIN,TOTAL 0.5 mg/dL (0.2-1.0); CALCIUM 9.7 mg/dL (8.5-10.1); CREATININE 0.9 mg/dL (0.6-1.3); MAGNESIUM 2.4 mg/dL (1.8-2.4); PHOSPHOROUS 4.1 mg/dL (2.5-4.9); POTASSIUM 3.5 mmol/L (3.5-5.1); TOTAL PROTEIN, SERUM 8.9 g/dL (6.4-8.2)
[2023-02-11 07:56] LABS: DIFFERENTIAL COMMENT 1
[2023-02-11 08:00] VITALS: TEMP 98
[2023-02-11] MEDS: HYDROGEN PEROXIDE 3% 118 ML BOTTLE TP SCH ×2 (09:30→21:00)
[2023-02-11] MEDS: DOCUSATE SODIUM 100 MG/10 ML LIQUID UDC GT SCH ×2 (09:32→20:21)
[2023-02-11] MEDS: levETIRAcetam 500 MG/5 ML LIQUID UDC GT SCH ×2 (09:33→20:22)
[2023-02-11] MEDS: GEMFIBROZIL 600 MG TABLET GT SCH ×2 (09:33→17:07)
[2023-02-11] MEDS: PROTEIN SUPPLEMENT (PROSTAT) 30 ML LIQUID GT SCH ×2 (09:41→20:23)
[2023-02-11] MEDS: CLOBAZAM 10 MG TABLET GT SCH ×2 (09:41→20:23)
[2023-02-11] MEDS: LACOSAMIDE 100 MG/10 ML UDC GT SCH ×2 (09:42→20:32)
[2023-02-11] MEDS: BISACODYL 10 MG SUPP.RECT RC SCH (09:43)
[2023-02-11] MEDS: BENZOYL PEROXIDE 10% GEL 60 GM TUBE TP SCH (09:43)
[2023-02-11] MEDS: REMEDY ESSENTIAL ZINC PASTE 113 GM TOP SCH ×2 (09:43→20:34)
[2023-02-11] MEDS: HEPARIN SODIUM,PORCINE 5,000 UNITS/ML VIAL SQ SCH ×2 (09:54→21:01)
[2023-02-11] MEDS: JEVITY 1.2 1000 ML LIQUID GT PRN (13:54)
[2023-02-11 20:06] VITALS: TEMP 97.7
[2023-02-12] MEDS: IPRATROPIUM BROMIDE 0.5 MG/2.5 ML NEBU NEB SCH ×4 (01:40→19:29)
[2023-02-12] MEDS: ALBUTEROL SULFATE 1.25 MG/3 ML NEBU NEB SCH ×4 (01:41→19:29)
[2023-02-12] MEDS: POLYVINYL ALCOHOL OPHT DROPS 15 ML BOTTLE EACHEYE SCH ×6 (02:00→22:28)
[2023-02-12] MEDS: MINERAL OIL/PETROLAT OPHT OINT 3.5 GM TUBE EACHEYE SCH ×3 (05:27→22:28)
[2023-02-12] MEDS: NUTRISOURCE FIBER 4 GM PACKET GT SCH ×3 (05:27→22:28)
[2023-02-12] MEDS: HYDROGEN PEROXIDE 3% 118 ML BOTTLE TP SCH ×2 (07:40→21:32)
[2023-02-12 08:00] VITALS: TEMP 97.8
[2023-02-12] MEDS: GEMFIBROZIL 600 MG TABLET GT SCH ×2 (09:14→17:28)
[2023-02-12] MEDS: levETIRAcetam 500 MG/5 ML LIQUID UDC GT SCH ×2 (09:14→20:01)
[2023-02-12] MEDS: DOCUSATE SODIUM 100 MG/10 ML LIQUID UDC GT SCH ×2 (09:14→20:01)
[2023-02-12] MEDS: PROTEIN SUPPLEMENT (PROSTAT) 30 ML LIQUID GT SCH ×2 (09:15→20:01)
[2023-02-12] MEDS: LACOSAMIDE 100 MG/10 ML UDC GT SCH ×2 (09:15→20:26)
[2023-02-12] MEDS: CLOBAZAM 10 MG TABLET GT SCH ×2 (09:15→20:26)
[2023-02-12] MEDS: HEPARIN SODIUM,PORCINE 5,000 UNITS/ML VIAL SQ SCH ×2 (09:16→20:01)
[2023-02-12] MEDS: BENZOYL PEROXIDE 10% GEL 60 GM TUBE TP SCH (09:17)
[2023-02-12] MEDS: NEOMY/BACITRA/POLYMYXIN B OINT UD PACKET TP SCH (09:17)
[2023-02-12] MEDS: REMEDY ESSENTIAL ZINC PASTE 113 GM TOP SCH ×2 (09:17→20:01)
[2023-02-12] MEDS: JEVITY 1.2 1000 ML LIQUID GT PRN (17:46)
[2023-02-12 20:03] VITALS: TEMP 97.4
[2023-02-13] MEDS: IPRATROPIUM BROMIDE 0.5 MG/2.5 ML NEBU NEB SCH ×4 (01:07→19:16)
[2023-02-13] MEDS: ALBUTEROL SULFATE 1.25 MG/3 ML NEBU NEB SCH ×4 (01:07→19:16)
[2023-02-13] MEDS: POLYVINYL ALCOHOL OPHT DROPS 15 ML BOTTLE EACHEYE SCH ×6 (02:02→22:39)
[2023-02-13] MEDS: NUTRISOURCE FIBER 4 GM PACKET GT SCH ×3 (05:16→22:39)
[2023-02-13] MEDS: MINERAL OIL/PETROLAT OPHT OINT 3.5 GM TUBE EACHEYE SCH ×3 (05:16→22:39)
[2023-02-13 08:00] VITALS: TEMP 97.8
[2023-02-13] MEDS: DOCUSATE SODIUM 100 MG/10 ML LIQUID UDC GT SCH ×2 (08:30→20:05)
[2023-02-13] MEDS: levETIRAcetam 500 MG/5 ML LIQUID UDC GT SCH ×2 (08:32→20:06)
[2023-02-13] MEDS: GEMFIBROZIL 600 MG TABLET GT SCH ×2 (08:32→17:00)
[2023-02-13] MEDS: CLOBAZAM 10 MG TABLET GT SCH ×2 (08:32→20:07)
[2023-02-13] MEDS: LACOSAMIDE 100 MG/10 ML UDC GT SCH ×2 (08:33→20:10)
[2023-02-13] MEDS: PROTEIN SUPPLEMENT (PROSTAT) 30 ML LIQUID GT SCH ×2 (08:33→20:09)
[2023-02-13] MEDS: BISACODYL 10 MG SUPP.RECT RC SCH (08:34)
[2023-02-13] MEDS: HEPARIN SODIUM,PORCINE 5,000 UNITS/ML VIAL SQ SCH ×2 (08:35→20:11)
[2023-02-13] MEDS: REMEDY ESSENTIAL ZINC PASTE 113 GM TOP SCH ×2 (08:35→20:11)
[2023-02-13] MEDS: BENZOYL PEROXIDE 10% GEL 60 GM TUBE TP SCH (08:35)
[2023-02-13] MEDS: NEOMY/BACITRA/POLYMYXIN B OINT UD PACKET TP SCH (08:36)
[2023-02-13] MEDS: HYDROGEN PEROXIDE 3% 118 ML BOTTLE TP SCH ×2 (09:00→20:30)
[2023-02-13] MEDS: JEVITY 1.2 1000 ML LIQUID GT PRN (18:19)
[2023-02-13 19:59] VITALS: TEMP 97.6
[2023-02-14] MEDS: ALBUTEROL SULFATE 1.25 MG/3 ML NEBU NEB SCH ×4 (01:29→19:25)
[2023-02-14] MEDS: IPRATROPIUM BROMIDE 0.5 MG/2.5 ML NEBU NEB SCH ×4 (01:29→19:25)
[2023-02-14] MEDS: POLYVINYL ALCOHOL OPHT DROPS 15 ML BOTTLE EACHEYE SCH ×6 (02:00→22:09)
[2023-02-14] MEDS: MINERAL OIL/PETROLAT OPHT OINT 3.5 GM TUBE EACHEYE SCH ×3 (05:47→22:09)
[2023-02-14] MEDS: NUTRISOURCE FIBER 4 GM PACKET GT SCH ×3 (05:47→22:09)
[2023-02-14 07:43] VITALS: TEMP 97.5
[2023-02-14] MEDS: GEMFIBROZIL 600 MG TABLET GT SCH ×2 (08:40→17:09)
[2023-02-14] MEDS: CLOBAZAM 10 MG TABLET GT SCH ×2 (08:40→20:05)
[2023-02-14] MEDS: PROTEIN SUPPLEMENT (PROSTAT) 30 ML LIQUID GT SCH ×2 (08:40→20:05)
[2023-02-14] MEDS: DOCUSATE SODIUM 100 MG/10 ML LIQUID UDC GT SCH ×2 (08:40→20:05)
[2023-02-14] MEDS: levETIRAcetam 500 MG/5 ML LIQUID UDC GT SCH ×2 (08:40→20:05)
[2023-02-14] MEDS: LACOSAMIDE 100 MG/10 ML UDC GT SCH ×2 (08:51→20:06)
[2023-02-14] MEDS: HEPARIN SODIUM,PORCINE 5,000 UNITS/ML VIAL SQ SCH ×2 (08:51→20:06)
[2023-02-14] MEDS: REMEDY ESSENTIAL ZINC PASTE 113 GM TOP SCH ×2 (08:52→20:08)
[2023-02-14] MEDS: BENZOYL PEROXIDE 10% GEL 60 GM TUBE TP SCH (08:52)
[2023-02-14] MEDS: NEOMY/BACITRA/POLYMYXIN B OINT UD PACKET TP SCH (08:52)
[2023-02-14] MEDS: HYDROGEN PEROXIDE 3% 118 ML BOTTLE TP SCH ×2 (09:59→21:04)
[2023-02-14] MEDS: JEVITY 1.2 1000 ML LIQUID GT PRN (17:17)
[2023-02-14 20:00] VITALS: TEMP 97.6
[2023-02-15] MEDS: IPRATROPIUM BROMIDE 0.5 MG/2.5 ML NEBU NEB SCH ×4 (00:40→19:35)
[2023-02-15] MEDS: ALBUTEROL SULFATE 1.25 MG/3 ML NEBU NEB SCH ×4 (00:40→19:35)
[2023-02-15] MEDS: POLYVINYL ALCOHOL OPHT DROPS 15 ML BOTTLE EACHEYE SCH ×6 (02:06→21:08)
[2023-02-15] MEDS: MINERAL OIL/PETROLAT OPHT OINT 3.5 GM TUBE EACHEYE SCH ×3 (05:06→21:08)
[2023-02-15] MEDS: NUTRISOURCE FIBER 4 GM PACKET GT SCH ×3 (05:06→21:08)
[2023-02-15 07:46] VITALS: TEMP 97.2
[2023-02-15] MEDS: CLOBAZAM 10 MG TABLET GT SCH ×2 (08:43→21:00)
[2023-02-15] MEDS: LACOSAMIDE 100 MG/10 ML UDC GT SCH ×2 (08:43→21:00)
[2023-02-15] MEDS: levETIRAcetam 500 MG/5 ML LIQUID UDC GT SCH ×2 (08:43→20:56)
[2023-02-15] MEDS: BISACODYL 10 MG SUPP.RECT RC SCH (08:43)
[2023-02-15] MEDS: GEMFIBROZIL 600 MG TABLET GT SCH ×2 (08:43→17:46)
[2023-02-15] MEDS: DOCUSATE SODIUM 100 MG/10 ML LIQUID UDC GT SCH ×2 (08:43→20:55)
[2023-02-15] MEDS: PROTEIN SUPPLEMENT (PROSTAT) 30 ML LIQUID GT SCH ×2 (08:43→20:57)
[2023-02-15] MEDS: HEPARIN SODIUM,PORCINE 5,000 UNITS/ML VIAL SQ SCH ×2 (08:45→20:58)
[2023-02-15] MEDS: REMEDY ESSENTIAL ZINC PASTE 113 GM TOP SCH ×2 (08:46→20:57)
[2023-02-15] MEDS: BENZOYL PEROXIDE 10% GEL 60 GM TUBE TP SCH (08:46)
[2023-02-15] MEDS: NEOMY/BACITRA/POLYMYXIN B OINT UD PACKET TP SCH (08:46)
[2023-02-15] MEDS: HYDROGEN PEROXIDE 3% 118 ML BOTTLE TP SCH ×2 (10:00→21:56)
[2023-02-15 20:31] VITALS: TEMP 98.2
[2023-02-16] MEDS: IPRATROPIUM BROMIDE 0.5 MG/2.5 ML NEBU NEB SCH ×4 (01:27→19:27)
[2023-02-16] MEDS: ALBUTEROL SULFATE 1.25 MG/3 ML NEBU NEB SCH ×4 (01:28→19:27)
[2023-02-16] MEDS: POLYVINYL ALCOHOL OPHT DROPS 15 ML BOTTLE EACHEYE SCH ×6 (02:00→22:11)
[2023-02-16] MEDS: LORAZEPAM 0.5 MG TABLET GT PRN (04:05)
[2023-02-16] MEDS: NUTRISOURCE FIBER 4 GM PACKET GT SCH ×3 (06:15→22:11)
[2023-02-16] MEDS: MINERAL OIL/PETROLAT OPHT OINT 3.5 GM TUBE EACHEYE SCH ×3 (06:15→22:11)
[2023-02-16] MEDS: HYDROGEN PEROXIDE 3% 118 ML BOTTLE TP SCH ×2 (07:20→19:27)
[2023-02-16 07:54] VITALS: TEMP 97.4
[2023-02-16] MEDS: PROTEIN SUPPLEMENT (PROSTAT) 30 ML LIQUID GT SCH ×2 (08:52→21:00)
[2023-02-16] MEDS: levETIRAcetam 500 MG/5 ML LIQUID UDC GT SCH ×2 (08:52→21:00)
[2023-02-16] MEDS: DOCUSATE SODIUM 100 MG/10 ML LIQUID UDC GT SCH ×2 (08:52→21:00)
[2023-02-16] MEDS: CLOBAZAM 10 MG TABLET GT SCH ×2 (08:52→21:00)
[2023-02-16] MEDS: GEMFIBROZIL 600 MG TABLET GT SCH ×2 (08:52→17:26)
[2023-02-16] MEDS: REMEDY ESSENTIAL ZINC PASTE 113 GM TOP SCH ×2 (08:53→21:00)
[2023-02-16] MEDS: BENZOYL PEROXIDE 10% GEL 60 GM TUBE TP SCH (08:53)
[2023-02-16] MEDS: LACOSAMIDE 100 MG/10 ML UDC GT SCH ×2 (08:53→21:00)
[2023-02-16] MEDS: NEOMY/BACITRA/POLYMYXIN B OINT UD PACKET TP SCH (08:53)
[2023-02-16] MEDS: HEPARIN SODIUM,PORCINE 5,000 UNITS/ML VIAL SQ SCH ×2 (10:00→21:00)
[2023-02-16 20:01] VITALS: TEMP 97.6
[2023-02-17] MEDS: IPRATROPIUM BROMIDE 0.5 MG/2.5 ML NEBU NEB SCH ×4 (01:30→18:58)
[2023-02-17] MEDS: ALBUTEROL SULFATE 1.25 MG/3 ML NEBU NEB SCH ×4 (01:30→18:58)
[2023-02-17] MEDS: POLYVINYL ALCOHOL OPHT DROPS 15 ML BOTTLE EACHEYE SCH ×6 (02:00→22:25)
[2023-02-17] MEDS: MINERAL OIL/PETROLAT OPHT OINT 3.5 GM TUBE EACHEYE SCH ×3 (04:59→22:25)
[2023-02-17] MEDS: NUTRISOURCE FIBER 4 GM PACKET GT SCH ×3 (05:00→22:25)
[2023-02-17 08:00] VITALS: TEMP 98.6
[2023-02-17] MEDS: HYDROGEN PEROXIDE 3% 118 ML BOTTLE TP SCH ×2 (09:30→18:58)
[2023-02-17] MEDS: REMEDY ESSENTIAL ZINC PASTE 113 GM TOP SCH ×2 (09:49→20:31)
[2023-02-17] MEDS: PROTEIN SUPPLEMENT (PROSTAT) 30 ML LIQUID GT SCH ×2 (09:49→20:30)
[2023-02-17] MEDS: LACOSAMIDE 100 MG/10 ML UDC GT SCH ×2 (09:49→20:31)
[2023-02-17] MEDS: BENZOYL PEROXIDE 10% GEL 60 GM TUBE TP SCH (09:49)
[2023-02-17] MEDS: NEOMY/BACITRA/POLYMYXIN B OINT UD PACKET TP SCH (09:49)
[2023-02-17] MEDS: levETIRAcetam 500 MG/5 ML LIQUID UDC GT SCH ×2 (09:49→20:30)
[2023-02-17] MEDS: CLOBAZAM 10 MG TABLET GT SCH ×2 (09:49→20:30)
[2023-02-17] MEDS: GEMFIBROZIL 600 MG TABLET GT SCH ×2 (09:49→17:23)
[2023-02-17] MEDS: DOCUSATE SODIUM 100 MG/10 ML LIQUID UDC GT SCH ×2 (09:49→20:30)
[2023-02-17] MEDS: HEPARIN SODIUM,PORCINE 5,000 UNITS/ML VIAL SQ SCH ×2 (09:50→21:00)
[2023-02-17] MEDS: JEVITY 1.2 1000 ML LIQUID GT PRN (18:35)
[2023-02-17 20:00] VITALS: TEMP 97.5
[2023-02-18] MEDS: ALBUTEROL SULFATE 1.25 MG/3 ML NEBU NEB SCH ×4 (01:09→19:26)
[2023-02-18] MEDS: IPRATROPIUM BROMIDE 0.5 MG/2.5 ML NEBU NEB SCH ×4 (01:09→19:26)
[2023-02-18] MEDS: POLYVINYL ALCOHOL OPHT DROPS 15 ML BOTTLE EACHEYE SCH ×6 (02:00→22:25)
[2023-02-18] MEDS: MINERAL OIL/PETROLAT OPHT OINT 3.5 GM TUBE EACHEYE SCH ×3 (05:06→22:25)
[2023-02-18] MEDS: NUTRISOURCE FIBER 4 GM PACKET GT SCH ×3 (05:06→22:25)
[2023-02-18 08:00] VITALS: TEMP 97.7
[2023-02-18] MEDS: DOCUSATE SODIUM 100 MG/10 ML LIQUID UDC GT SCH ×2 (08:41→20:09)
[2023-02-18] MEDS: levETIRAcetam 500 MG/5 ML LIQUID UDC GT SCH ×2 (08:41→20:10)
[2023-02-18] MEDS: LACOSAMIDE 100 MG/10 ML UDC GT SCH ×2 (08:42→20:12)
[2023-02-18] MEDS: GEMFIBROZIL 600 MG TABLET GT SCH ×2 (08:42→17:49)
[2023-02-18] MEDS: CLOBAZAM 10 MG TABLET GT SCH ×2 (08:42→20:16)
[2023-02-18] MEDS: PROTEIN SUPPLEMENT (PROSTAT) 30 ML LIQUID GT SCH ×2 (08:42→20:11)
[2023-02-18] MEDS: REMEDY ESSENTIAL ZINC PASTE 113 GM TOP SCH ×2 (08:43→20:14)
[2023-02-18] MEDS: BISACODYL 10 MG SUPP.RECT RC SCH (08:43)
[2023-02-18] MEDS: HEPARIN SODIUM,PORCINE 5,000 UNITS/ML VIAL SQ SCH ×2 (08:43→20:13)
[2023-02-18] MEDS: NEOMY/BACITRA/POLYMYXIN B OINT UD PACKET TP SCH (08:44)
[2023-02-18] MEDS: BENZOYL PEROXIDE 10% GEL 60 GM TUBE TP SCH (08:44)
[2023-02-18] MEDS: HYDROGEN PEROXIDE 3% 118 ML BOTTLE TP SCH ×2 (09:32→19:26)
[2023-02-18] MEDS: JEVITY 1.2 1000 ML LIQUID GT PRN (17:15)
[2023-02-18 20:11] VITALS: TEMP 97.7
[2023-02-19] MEDS: ALBUTEROL SULFATE 1.25 MG/3 ML NEBU NEB SCH ×4 (01:30→19:08)
[2023-02-19] MEDS: IPRATROPIUM BROMIDE 0.5 MG/2.5 ML NEBU NEB SCH ×4 (01:30→19:08)
[2023-02-19] MEDS: POLYVINYL ALCOHOL OPHT DROPS 15 ML BOTTLE EACHEYE SCH ×6 (02:00→22:00)
[2023-02-19] MEDS: MINERAL OIL/PETROLAT OPHT OINT 3.5 GM TUBE EACHEYE SCH ×3 (05:33→22:00)
[2023-02-19] MEDS: NUTRISOURCE FIBER 4 GM PACKET GT SCH ×3 (05:33→22:00)
[2023-02-19] MEDS: HYDROGEN PEROXIDE 3% 118 ML BOTTLE TP SCH ×2 (07:30→19:08)
[2023-02-19 08:00] VITALS: TEMP 98
[2023-02-19] MEDS: LACOSAMIDE 100 MG/10 ML UDC GT SCH ×2 (08:48→21:14)
[2023-02-19] MEDS: CLOBAZAM 10 MG TABLET GT SCH ×2 (08:50→21:14)
[2023-02-19] MEDS: DOCUSATE SODIUM 100 MG/10 ML LIQUID UDC GT SCH ×2 (08:51→21:14)
[2023-02-19] MEDS: GEMFIBROZIL 600 MG TABLET GT SCH ×2 (08:52→17:07)
[2023-02-19] MEDS: PROTEIN SUPPLEMENT (PROSTAT) 30 ML LIQUID GT SCH ×2 (08:52→21:14)
[2023-02-19] MEDS: REMEDY ESSENTIAL ZINC PASTE 113 GM TOP SCH ×2 (08:52→21:14)
[2023-02-19] MEDS: levETIRAcetam 500 MG/5 ML LIQUID UDC GT SCH ×2 (08:52→21:14)
[2023-02-19] MEDS: HEPARIN SODIUM,PORCINE 5,000 UNITS/ML VIAL SQ SCH ×2 (08:58→21:10)
[2023-02-19] MEDS: NEOMY/BACITRA/POLYMYXIN B OINT UD PACKET TP SCH (09:00)
[2023-02-19] MEDS: BENZOYL PEROXIDE 10% GEL 60 GM TUBE TP SCH (09:00)
[2023-02-19 19:59] VITALS: TEMP 98.4
[2023-02-20] MEDS: IPRATROPIUM BROMIDE 0.5 MG/2.5 ML NEBU NEB SCH ×4 (00:57→19:45)
[2023-02-20] MEDS: ALBUTEROL SULFATE 1.25 MG/3 ML NEBU NEB SCH ×4 (00:57→19:45)
[2023-02-20] MEDS: POLYVINYL ALCOHOL OPHT DROPS 15 ML BOTTLE EACHEYE SCH ×6 (01:47→21:08)
[2023-02-20] MEDS: MINERAL OIL/PETROLAT OPHT OINT 3.5 GM TUBE EACHEYE SCH ×3 (05:43→21:08)
[2023-02-20] MEDS: NUTRISOURCE FIBER 4 GM PACKET GT SCH ×3 (05:43→21:22)
[2023-02-20 08:00] VITALS: TEMP 98.8
[2023-02-20] MEDS: BISACODYL 10 MG SUPP.RECT RC SCH (08:39)
[2023-02-20] MEDS: levETIRAcetam 500 MG/5 ML LIQUID UDC GT SCH ×2 (08:39→21:07)
[2023-02-20] MEDS: PROTEIN SUPPLEMENT (PROSTAT) 30 ML LIQUID GT SCH ×2 (08:39→21:07)
[2023-02-20] MEDS: LACOSAMIDE 100 MG/10 ML UDC GT SCH ×2 (08:39→21:22)
[2023-02-20] MEDS: GEMFIBROZIL 600 MG TABLET GT SCH ×2 (08:39→17:17)
[2023-02-20] MEDS: DOCUSATE SODIUM 100 MG/10 ML LIQUID UDC GT SCH ×2 (08:39→21:06)
[2023-02-20] MEDS: CLOBAZAM 10 MG TABLET GT SCH ×2 (08:39→21:22)
[2023-02-20] MEDS: HEPARIN SODIUM,PORCINE 5,000 UNITS/ML VIAL SQ SCH ×2 (08:41→21:08)
[2023-02-20] MEDS: BENZOYL PEROXIDE 10% GEL 60 GM TUBE TP SCH (08:42)
[2023-02-20] MEDS: REMEDY ESSENTIAL ZINC PASTE 113 GM TOP SCH ×2 (08:42→21:08)
[2023-02-20] MEDS: NEOMY/BACITRA/POLYMYXIN B OINT UD PACKET TP SCH (08:42)
[2023-02-20] MEDS: HYDROGEN PEROXIDE 3% 118 ML BOTTLE TP SCH ×2 (09:40→21:46)
[2023-02-20 20:30] VITALS: TEMP 98.4
[2023-02-21] MEDS: IPRATROPIUM BROMIDE 0.5 MG/2.5 ML NEBU NEB SCH ×4 (01:37→19:45)
[2023-02-21] MEDS: ALBUTEROL SULFATE 1.25 MG/3 ML NEBU NEB SCH ×4 (01:37→19:45)
[2023-02-21] MEDS: POLYVINYL ALCOHOL OPHT DROPS 15 ML BOTTLE EACHEYE SCH ×6 (02:36→22:30)
[2023-02-21] MEDS: MINERAL OIL/PETROLAT OPHT OINT 3.5 GM TUBE EACHEYE SCH ×3 (02:37→22:30)
[2023-02-21] MEDS: NUTRISOURCE FIBER 4 GM PACKET GT SCH ×3 (06:52→22:30)
[2023-02-21] MEDS: HYDROGEN PEROXIDE 3% 118 ML BOTTLE TP SCH ×2 (07:10→21:43)
[2023-02-21 08:00] VITALS: TEMP 97.8
[2023-02-21] MEDS: DOCUSATE SODIUM 100 MG/10 ML LIQUID UDC GT SCH ×2 (08:22→20:59)
[2023-02-21] MEDS: levETIRAcetam 500 MG/5 ML LIQUID UDC GT SCH ×2 (08:22→20:59)
[2023-02-21] MEDS: GEMFIBROZIL 600 MG TABLET GT SCH ×2 (08:24→17:41)
[2023-02-21] MEDS: PROTEIN SUPPLEMENT (PROSTAT) 30 ML LIQUID GT SCH ×2 (08:25→20:59)
[2023-02-21] MEDS: CLOBAZAM 10 MG TABLET GT SCH ×2 (08:25→20:59)
[2023-02-21] MEDS: LACOSAMIDE 100 MG/10 ML UDC GT SCH ×2 (08:26→20:59)
[2023-02-21] MEDS: REMEDY ESSENTIAL ZINC PASTE 113 GM TOP SCH ×2 (08:26→20:59)
[2023-02-21] MEDS: BENZOYL PEROXIDE 10% GEL 60 GM TUBE TP SCH (08:27)
[2023-02-21] MEDS: NEOMY/BACITRA/POLYMYXIN B OINT UD PACKET TP SCH (08:28)
[2023-02-21] MEDS: HEPARIN SODIUM,PORCINE 5,000 UNITS/ML VIAL SQ SCH ×2 (08:37→20:59)
[2023-02-21 20:18] VITALS: TEMP 98.6
[2023-02-22] MEDS: IPRATROPIUM BROMIDE 0.5 MG/2.5 ML NEBU NEB SCH ×4 (01:20→19:11)
[2023-02-22] MEDS: ALBUTEROL SULFATE 1.25 MG/3 ML NEBU NEB SCH ×4 (01:20→19:11)
[2023-02-22] MEDS: POLYVINYL ALCOHOL OPHT DROPS 15 ML BOTTLE EACHEYE SCH ×6 (02:05→22:30)
[2023-02-22] MEDS: MINERAL OIL/PETROLAT OPHT OINT 3.5 GM TUBE EACHEYE SCH ×3 (05:22→22:30)
[2023-02-22] MEDS: NUTRISOURCE FIBER 4 GM PACKET GT SCH ×3 (05:22→22:30)
[2023-02-22] MEDS: HYDROGEN PEROXIDE 3% 118 ML BOTTLE TP SCH ×2 (07:26→19:11)
[2023-02-22 07:41] VITALS: TEMP 97.7
[2023-02-22] MEDS: DOCUSATE SODIUM 100 MG/10 ML LIQUID UDC GT SCH ×2 (09:35→20:44)
[2023-02-22] MEDS: CLOBAZAM 10 MG TABLET GT SCH ×2 (09:35→20:44)
[2023-02-22] MEDS: LACOSAMIDE 100 MG/10 ML UDC GT SCH ×2 (09:35→20:45)
[2023-02-22] MEDS: levETIRAcetam 500 MG/5 ML LIQUID UDC GT SCH ×2 (09:36→20:44)
[2023-02-22] MEDS: BISACODYL 10 MG SUPP.RECT RC SCH (09:38)
[2023-02-22] MEDS: PROTEIN SUPPLEMENT (PROSTAT) 30 ML LIQUID GT SCH ×2 (09:38→20:45)
[2023-02-22] MEDS: GEMFIBROZIL 600 MG TABLET GT SCH ×2 (09:38→16:58)
[2023-02-22] MEDS: REMEDY ESSENTIAL ZINC PASTE 113 GM TOP SCH ×2 (09:39→20:45)
[2023-02-22] MEDS: HEPARIN SODIUM,PORCINE 5,000 UNITS/ML VIAL SQ SCH ×2 (09:45→21:00)
[2023-02-22] MEDS: BENZOYL PEROXIDE 10% GEL 60 GM TUBE TP SCH (09:46)
[2023-02-22] MEDS: JEVITY 1.2 1000 ML LIQUID GT PRN (11:32)
[2023-02-22 20:00] VITALS: TEMP 98.2
[2023-02-23] MEDS: IPRATROPIUM BROMIDE 0.5 MG/2.5 ML NEBU NEB SCH ×4 (01:13→19:19)
[2023-02-23] MEDS: ALBUTEROL SULFATE 1.25 MG/3 ML NEBU NEB SCH ×4 (01:14→19:19)
[2023-02-23] MEDS: POLYVINYL ALCOHOL OPHT DROPS 15 ML BOTTLE EACHEYE SCH ×6 (02:10→21:48)
[2023-02-23] MEDS: MINERAL OIL/PETROLAT OPHT OINT 3.5 GM TUBE EACHEYE SCH ×3 (05:02→21:48)
[2023-02-23] MEDS: NUTRISOURCE FIBER 4 GM PACKET GT SCH ×3 (05:02→21:29)
[2023-02-23 08:00] VITALS: TEMP 97
[2023-02-23] MEDS: DOCUSATE SODIUM 100 MG/10 ML LIQUID UDC GT SCH ×2 (08:55→21:29)
[2023-02-23] MEDS: PROTEIN SUPPLEMENT (PROSTAT) 30 ML LIQUID GT SCH ×2 (08:56→21:29)
[2023-02-23] MEDS: GEMFIBROZIL 600 MG TABLET GT SCH ×2 (08:56→16:32)
[2023-02-23] MEDS: levETIRAcetam 500 MG/5 ML LIQUID UDC GT SCH ×2 (08:56→21:48)
[2023-02-23] MEDS: CLOBAZAM 10 MG TABLET GT SCH ×2 (09:03→21:36)
[2023-02-23] MEDS: LACOSAMIDE 100 MG/10 ML UDC GT SCH ×2 (09:03→21:36)
[2023-02-23] MEDS: HEPARIN SODIUM,PORCINE 5,000 UNITS/ML VIAL SQ SCH ×2 (09:04→21:00)
[2023-02-23] MEDS: BENZOYL PEROXIDE 10% GEL 60 GM TUBE TP SCH (09:05)
[2023-02-23] MEDS: REMEDY ESSENTIAL ZINC PASTE 113 GM TOP SCH ×2 (09:05→21:29)
[2023-02-23] MEDS: HYDROGEN PEROXIDE 3% 118 ML BOTTLE TP SCH ×2 (09:29→20:16)
[2023-02-23] MEDS: JEVITY 1.2 1000 ML LIQUID GT PRN (13:47)
[2023-02-23 19:52] VITALS: TEMP 97.4
[2023-02-24] MEDS: ALBUTEROL SULFATE 1.25 MG/3 ML NEBU NEB SCH ×4 (01:54→19:30)
[2023-02-24] MEDS: IPRATROPIUM BROMIDE 0.5 MG/2.5 ML NEBU NEB SCH ×4 (01:54→19:30)
[2023-02-24] MEDS: POLYVINYL ALCOHOL OPHT DROPS 15 ML BOTTLE EACHEYE SCH ×6 (02:00→21:34)
[2023-02-24] MEDS: MINERAL OIL/PETROLAT OPHT OINT 3.5 GM TUBE EACHEYE SCH ×3 (05:12→21:34)
[2023-02-24] MEDS: NUTRISOURCE FIBER 4 GM PACKET GT SCH ×3 (05:12→21:35)
[2023-02-24 07:56] VITALS: TEMP 97.4
[2023-02-24] MEDS: HYDROGEN PEROXIDE 3% 118 ML BOTTLE TP SCH ×2 (09:00→21:25)
[2023-02-24] MEDS: DOCUSATE SODIUM 100 MG/10 ML LIQUID UDC GT SCH ×2 (09:12→21:34)
[2023-02-24] MEDS: levETIRAcetam 500 MG/5 ML LIQUID UDC GT SCH ×2 (09:13→21:34)
[2023-02-24] MEDS: GEMFIBROZIL 600 MG TABLET GT SCH ×2 (09:13→16:56)
[2023-02-24] MEDS: PROTEIN SUPPLEMENT (PROSTAT) 30 ML LIQUID GT SCH ×2 (09:14→21:34)
[2023-02-24] MEDS: LACOSAMIDE 100 MG/10 ML UDC GT SCH ×2 (09:14→21:34)
[2023-02-24] MEDS: CLOBAZAM 10 MG TABLET GT SCH ×2 (09:14→21:34)
[2023-02-24] MEDS: BENZOYL PEROXIDE 10% GEL 60 GM TUBE TP SCH (09:21)
[2023-02-24] MEDS: HEPARIN SODIUM,PORCINE 5,000 UNITS/ML VIAL SQ SCH ×2 (09:21→21:00)
[2023-02-24] MEDS: REMEDY ESSENTIAL ZINC PASTE 113 GM TOP SCH ×2 (09:21→21:34)
[2023-02-24] MEDS: JEVITY 1.2 1000 ML LIQUID GT PRN (15:55)
[2023-02-24 19:54] VITALS: TEMP 98
[2023-02-25] MEDS: IPRATROPIUM BROMIDE 0.5 MG/2.5 ML NEBU NEB SCH ×4 (00:35→19:20)
[2023-02-25] MEDS: ALBUTEROL SULFATE 1.25 MG/3 ML NEBU NEB SCH ×4 (00:35→19:20)
[2023-02-25] MEDS: POLYVINYL ALCOHOL OPHT DROPS 15 ML BOTTLE EACHEYE SCH ×6 (02:00→21:56)
[2023-02-25] MEDS: NUTRISOURCE FIBER 4 GM PACKET GT SCH ×3 (05:25→21:56)
[2023-02-25] MEDS: MINERAL OIL/PETROLAT OPHT OINT 3.5 GM TUBE EACHEYE SCH ×3 (05:25→21:56)
[2023-02-25 07:34] VITALS: TEMP 98.8
[2023-02-25] MEDS: DOCUSATE SODIUM 100 MG/10 ML LIQUID UDC GT SCH ×2 (09:00→21:55)
[2023-02-25] MEDS: levETIRAcetam 500 MG/5 ML LIQUID UDC GT SCH ×2 (09:00→21:55)
[2023-02-25] MEDS: LACOSAMIDE 100 MG/10 ML UDC GT SCH ×2 (09:00→21:55)
[2023-02-25] MEDS: GEMFIBROZIL 600 MG TABLET GT SCH ×2 (09:00→17:01)
[2023-02-25] MEDS: CLOBAZAM 10 MG TABLET GT SCH ×2 (09:00→21:55)
[2023-02-25] MEDS: BISACODYL 10 MG SUPP.RECT RC SCH (09:00)
[2023-02-25] MEDS: HEPARIN SODIUM,PORCINE 5,000 UNITS/ML VIAL SQ SCH ×2 (09:00→21:00)
[2023-02-25] MEDS: PROTEIN SUPPLEMENT (PROSTAT) 30 ML LIQUID GT SCH ×2 (09:00→21:55)
[2023-02-25] MEDS: REMEDY ESSENTIAL ZINC PASTE 113 GM TOP SCH ×2 (09:00→21:56)
[2023-02-25] MEDS: BENZOYL PEROXIDE 10% GEL 60 GM TUBE TP SCH (09:00)
[2023-02-25] MEDS: HYDROGEN PEROXIDE 3% 118 ML BOTTLE TP SCH ×2 (09:53→19:20)
[2023-02-25 20:37] VITALS: TEMP 98.4
[2023-02-26] MEDS: POLYVINYL ALCOHOL OPHT DROPS 15 ML BOTTLE EACHEYE SCH ×6 (01:27→22:15)
[2023-02-26] MEDS: ALBUTEROL SULFATE 1.25 MG/3 ML NEBU NEB SCH ×4 (01:54→19:41)
[2023-02-26] MEDS: IPRATROPIUM BROMIDE 0.5 MG/2.5 ML NEBU NEB SCH ×4 (01:54→19:41)
[2023-02-26] MEDS: NUTRISOURCE FIBER 4 GM PACKET GT SCH ×3 (05:29→22:15)
[2023-02-26] MEDS: MINERAL OIL/PETROLAT OPHT OINT 3.5 GM TUBE EACHEYE SCH ×3 (05:29→22:15)
[2023-02-26 07:40] VITALS: O2SAT 99
[2023-02-26] MEDS: HYDROGEN PEROXIDE 3% 118 ML BOTTLE TP SCH ×2 (07:40→19:42)
[2023-02-26 08:00] VITALS: TEMP 99.2
[2023-02-26] MEDS: CLOBAZAM 10 MG TABLET GT SCH ×2 (09:11→22:10)
[2023-02-26] MEDS: DOCUSATE SODIUM 100 MG/10 ML LIQUID UDC GT SCH ×2 (09:11→21:00)
[2023-02-26] MEDS: PROTEIN SUPPLEMENT (PROSTAT) 30 ML LIQUID GT SCH ×2 (09:11→21:00)
[2023-02-26] MEDS: HEPARIN SODIUM,PORCINE 5,000 UNITS/ML VIAL SQ SCH (09:11)
[2023-02-26] MEDS: levETIRAcetam 500 MG/5 ML LIQUID UDC GT SCH ×2 (09:11→21:00)
[2023-02-26] MEDS: LACOSAMIDE 100 MG/10 ML UDC GT SCH ×2 (09:11→22:10)
[2023-02-26] MEDS: GEMFIBROZIL 600 MG TABLET GT SCH ×2 (09:11→17:55)
[2023-02-26] MEDS: BENZOYL PEROXIDE 10% GEL 60 GM TUBE TP SCH (09:11)
[2023-02-26] MEDS: REMEDY ESSENTIAL ZINC PASTE 113 GM TOP SCH ×2 (09:11→21:00)
[2023-02-26] MEDS: JEVITY 1.2 1000 ML LIQUID GT PRN (16:20)
[2023-02-26 19:55] VITALS: TEMP 99
[2023-02-27] MEDS: POLYVINYL ALCOHOL OPHT DROPS 15 ML BOTTLE EACHEYE SCH ×6 (02:00→21:13)
[2023-02-27] MEDS: IPRATROPIUM BROMIDE 0.5 MG/2.5 ML NEBU NEB SCH ×4 (02:23→19:50)
[2023-02-27] MEDS: ALBUTEROL SULFATE 1.25 MG/3 ML NEBU NEB SCH ×4 (02:24→19:50)
[2023-02-27] MEDS: NUTRISOURCE FIBER 4 GM PACKET GT SCH ×3 (06:02→22:33)
[2023-02-27] MEDS: MINERAL OIL/PETROLAT OPHT OINT 3.5 GM TUBE EACHEYE SCH ×3 (06:02→21:13)
[2023-02-27 08:00] VITALS: TEMP 98.6
[2023-02-27] MEDS: HYDROGEN PEROXIDE 3% 118 ML BOTTLE TP SCH ×2 (09:00→21:25)
[2023-02-27] MEDS: CLOBAZAM 10 MG TABLET GT SCH ×2 (09:06→21:13)
[2023-02-27] MEDS: GEMFIBROZIL 600 MG TABLET GT SCH ×2 (09:06→17:31)
[2023-02-27] MEDS: levETIRAcetam 500 MG/5 ML LIQUID UDC GT SCH ×2 (09:06→20:58)
[2023-02-27] MEDS: DOCUSATE SODIUM 100 MG/10 ML LIQUID UDC GT SCH ×2 (09:06→20:57)
[2023-02-27] MEDS: PROTEIN SUPPLEMENT (PROSTAT) 30 ML LIQUID GT SCH ×2 (09:06→20:58)
[2023-02-27] MEDS: LACOSAMIDE 100 MG/10 ML UDC GT SCH ×2 (09:07→21:13)
[2023-02-27] MEDS: BENZOYL PEROXIDE 10% GEL 60 GM TUBE TP SCH (09:07)
[2023-02-27] MEDS: REMEDY ESSENTIAL ZINC PASTE 113 GM TOP SCH ×2 (09:07→20:58)
[2023-02-27] MEDS: BISACODYL 10 MG SUPP.RECT RC SCH (09:07)
[2023-02-27] MEDS: JEVITY 1.2 1000 ML LIQUID GT PRN (16:25)
[2023-02-27 19:49] VITALS: TEMP 97.7
[2023-02-28] MEDS: IPRATROPIUM BROMIDE 0.5 MG/2.5 ML NEBU NEB SCH ×4 (01:50→19:52)
[2023-02-28] MEDS: ALBUTEROL SULFATE 1.25 MG/3 ML NEBU NEB SCH ×4 (01:50→19:52)
[2023-02-28] MEDS: POLYVINYL ALCOHOL OPHT DROPS 15 ML BOTTLE EACHEYE SCH ×6 (02:47→22:33)
[2023-02-28] MEDS: NUTRISOURCE FIBER 4 GM PACKET GT SCH ×3 (06:24→22:33)
[2023-02-28] MEDS: MINERAL OIL/PETROLAT OPHT OINT 3.5 GM TUBE EACHEYE SCH ×3 (06:24→22:33)
[2023-02-28 08:04] VITALS: TEMP 97.3
[2023-02-28] MEDS: DOCUSATE SODIUM 100 MG/10 ML LIQUID UDC GT SCH ×2 (08:46→20:36)
[2023-02-28] MEDS: CLOBAZAM 10 MG TABLET GT SCH ×2 (08:46→20:37)
[2023-02-28] MEDS: GEMFIBROZIL 600 MG TABLET GT SCH ×2 (08:46→17:00)
[2023-02-28] MEDS: levETIRAcetam 500 MG/5 ML LIQUID UDC GT SCH ×2 (08:46→20:37)
[2023-02-28] MEDS: PROTEIN SUPPLEMENT (PROSTAT) 30 ML LIQUID GT SCH ×2 (08:46→20:37)
[2023-02-28] MEDS: LACOSAMIDE 100 MG/10 ML UDC GT SCH ×2 (08:46→20:37)
[2023-02-28] MEDS: BENZOYL PEROXIDE 10% GEL 60 GM TUBE TP SCH (08:47)
[2023-02-28] MEDS: REMEDY ESSENTIAL ZINC PASTE 113 GM TOP SCH ×2 (08:47→20:37)
[2023-02-28] MEDS: HYDROGEN PEROXIDE 3% 118 ML BOTTLE TP SCH ×2 (09:55→21:34)
[2023-02-28 19:42] VITALS: TEMP 97.8
[2023-03-01] MEDS: POLYVINYL ALCOHOL OPHT DROPS 15 ML BOTTLE EACHEYE SCH ×6 (02:00→22:20)
[2023-03-01] MEDS: IPRATROPIUM BROMIDE 0.5 MG/2.5 ML NEBU NEB SCH ×4 (02:15→19:45)
[2023-03-01] MEDS: ALBUTEROL SULFATE 1.25 MG/3 ML NEBU NEB SCH ×4 (02:15→19:45)
[2023-03-01] MEDS: NUTRISOURCE FIBER 4 GM PACKET GT SCH ×3 (05:19→22:20)
[2023-03-01] MEDS: MINERAL OIL/PETROLAT OPHT OINT 3.5 GM TUBE EACHEYE SCH ×3 (05:19→22:20)
[2023-03-01] MEDS: PROTEIN SUPPLEMENT (PROSTAT) 30 ML LIQUID GT SCH ×2 (09:00→20:33)
[2023-03-01] MEDS: CLOBAZAM 10 MG TABLET GT SCH ×2 (09:00→20:33)
[2023-03-01] MEDS: DOCUSATE SODIUM 100 MG/10 ML LIQUID UDC GT SCH ×2 (09:38→20:33)
[2023-03-01] MEDS: GEMFIBROZIL 600 MG TABLET GT SCH ×2 (09:40→17:44)
[2023-03-01] MEDS: levETIRAcetam 500 MG/5 ML LIQUID UDC GT SCH ×2 (09:40→20:33)
[2023-03-01] MEDS: REMEDY ESSENTIAL ZINC PASTE 113 GM TOP SCH ×2 (09:42→20:33)
[2023-03-01] MEDS: BISACODYL 10 MG SUPP.RECT RC SCH (09:42)
[2023-03-01] MEDS: LACOSAMIDE 100 MG/10 ML UDC GT SCH ×2 (09:42→20:33)
[2023-03-01] MEDS: HYDROGEN PEROXIDE 3% 118 ML BOTTLE TP SCH ×2 (09:43→21:28)
[2023-03-01] MEDS: BENZOYL PEROXIDE 10% GEL 60 GM TUBE TP SCH (09:43)
[2023-03-01 20:00] VITALS: TEMP 97.4
[2023-03-02] MEDS: ALBUTEROL SULFATE 1.25 MG/3 ML NEBU NEB SCH ×4 (01:10→19:10)
[2023-03-02] MEDS: IPRATROPIUM BROMIDE 0.5 MG/2.5 ML NEBU NEB SCH ×4 (01:10→19:10)
[2023-03-02] MEDS: POLYVINYL ALCOHOL OPHT DROPS 15 ML BOTTLE EACHEYE SCH ×6 (02:00→22:35)
[2023-03-02] MEDS: LORAZEPAM 0.5 MG TABLET GT PRN (04:27)
[2023-03-02] MEDS: NUTRISOURCE FIBER 4 GM PACKET GT SCH ×3 (05:24→22:35)
[2023-03-02] MEDS: MINERAL OIL/PETROLAT OPHT OINT 3.5 GM TUBE EACHEYE SCH ×3 (05:24→22:35)
[2023-03-02] MEDS: levETIRAcetam 500 MG/5 ML LIQUID UDC GT SCH ×2 (09:23→20:29)
[2023-03-02] MEDS: DOCUSATE SODIUM 100 MG/10 ML LIQUID UDC GT SCH ×2 (09:23→20:29)
[2023-03-02] MEDS: HYDROGEN PEROXIDE 3% 118 ML BOTTLE TP SCH ×2 (09:25→21:38)
[2023-03-02] MEDS: GEMFIBROZIL 600 MG TABLET GT SCH ×2 (09:25→17:12)
[2023-03-02] MEDS: PROTEIN SUPPLEMENT (PROSTAT) 30 ML LIQUID GT SCH ×2 (09:25→20:29)
[2023-03-02] MEDS: REMEDY ESSENTIAL ZINC PASTE 113 GM TOP SCH ×2 (09:26→20:29)
[2023-03-02] MEDS: BENZOYL PEROXIDE 10% GEL 60 GM TUBE TP SCH (09:27)
[2023-03-02] MEDS: CLOBAZAM 10 MG TABLET GT SCH ×2 (09:34→20:29)
[2023-03-02] MEDS: LACOSAMIDE 100 MG/10 ML UDC GT SCH ×2 (09:34→20:29)
[2023-03-02 12:07] VITALS: TEMP 97.6
[2023-03-02] MEDS: JEVITY 1.2 1000 ML LIQUID GT PRN (15:03)
[2023-03-03] MEDS: IPRATROPIUM BROMIDE 0.5 MG/2.5 ML NEBU NEB SCH ×4 (01:31→20:24)
[2023-03-03] MEDS: ALBUTEROL SULFATE 1.25 MG/3 ML NEBU NEB SCH ×4 (01:32→20:24)
[2023-03-03] MEDS: POLYVINYL ALCOHOL OPHT DROPS 15 ML BOTTLE EACHEYE SCH ×6 (02:00→22:25)
[2023-03-03] MEDS: NUTRISOURCE FIBER 4 GM PACKET GT SCH ×3 (05:11→22:25)
[2023-03-03] MEDS: MINERAL OIL/PETROLAT OPHT OINT 3.5 GM TUBE EACHEYE SCH ×3 (05:11→22:25)
[2023-03-03 07:30] VITALS: TEMP 98.6
[2023-03-03] MEDS: HYDROGEN PEROXIDE 3% 118 ML BOTTLE TP SCH ×2 (09:09→20:24)
[2023-03-03] MEDS: levETIRAcetam 500 MG/5 ML LIQUID UDC GT SCH ×2 (09:16→20:28)
[2023-03-03] MEDS: GEMFIBROZIL 600 MG TABLET GT SCH ×2 (09:16→17:29)
[2023-03-03] MEDS: DOCUSATE SODIUM 100 MG/10 ML LIQUID UDC GT SCH ×2 (09:16→20:28)
[2023-03-03] MEDS: PROTEIN SUPPLEMENT (PROSTAT) 30 ML LIQUID GT SCH ×2 (09:16→20:28)
[2023-03-03] MEDS: REMEDY ESSENTIAL ZINC PASTE 113 GM TOP SCH ×2 (09:17→20:28)
[2023-03-03] MEDS: BENZOYL PEROXIDE 10% GEL 60 GM TUBE TP SCH (09:17)
[2023-03-03] MEDS: CLOBAZAM 10 MG TABLET GT SCH ×2 (09:21→20:28)
[2023-03-03] MEDS: LACOSAMIDE 100 MG/10 ML UDC GT SCH ×2 (09:21→20:28)
[2023-03-03 19:57] VITALS: TEMP 98.4
[2023-03-03] MEDS: JEVITY 1.2 1000 ML LIQUID GT PRN (20:28)
[2023-03-04] MEDS: ALBUTEROL SULFATE 1.25 MG/3 ML NEBU NEB SCH ×4 (01:56→19:27)
[2023-03-04] MEDS: IPRATROPIUM BROMIDE 0.5 MG/2.5 ML NEBU NEB SCH ×4 (01:56→19:27)
[2023-03-04] MEDS: POLYVINYL ALCOHOL OPHT DROPS 15 ML BOTTLE EACHEYE SCH ×6 (02:13→21:54)
[2023-03-04] MEDS: MINERAL OIL/PETROLAT OPHT OINT 3.5 GM TUBE EACHEYE SCH ×3 (05:35→21:54)
[2023-03-04] MEDS: NUTRISOURCE FIBER 4 GM PACKET GT SCH ×3 (05:35→21:54)
[2023-03-04 08:00] VITALS: TEMP 98
[2023-03-04] MEDS: levETIRAcetam 500 MG/5 ML LIQUID UDC GT SCH ×2 (09:01→20:47)
[2023-03-04] MEDS: DOCUSATE SODIUM 100 MG/10 ML LIQUID UDC GT SCH ×2 (09:01→20:47)
[2023-03-04] MEDS: GEMFIBROZIL 600 MG TABLET GT SCH ×2 (09:02→17:11)
[2023-03-04] MEDS: CLOBAZAM 10 MG TABLET GT SCH ×2 (09:05→20:47)
[2023-03-04] MEDS: LACOSAMIDE 100 MG/10 ML UDC GT SCH ×2 (09:05→20:47)
[2023-03-04] MEDS: BISACODYL 10 MG SUPP.RECT RC SCH (09:05)
[2023-03-04] MEDS: PROTEIN SUPPLEMENT (PROSTAT) 30 ML LIQUID GT SCH ×2 (09:05→20:47)
[2023-03-04] MEDS: BENZOYL PEROXIDE 10% GEL 60 GM TUBE TP SCH (09:07)
[2023-03-04] MEDS: REMEDY ESSENTIAL ZINC PASTE 113 GM TOP SCH ×2 (09:07→20:47)
[2023-03-04] MEDS: HYDROGEN PEROXIDE 3% 118 ML BOTTLE TP SCH ×2 (09:56→19:27)
[2023-03-04 19:56] VITALS: TEMP 99.1
[2023-03-04] MEDS: JEVITY 1.2 1000 ML LIQUID GT PRN (22:24)
[2023-03-05] MEDS: IPRATROPIUM BROMIDE 0.5 MG/2.5 ML NEBU NEB SCH ×4 (01:15→19:07)
[2023-03-05] MEDS: ALBUTEROL SULFATE 1.25 MG/3 ML NEBU NEB SCH ×4 (01:15→19:07)
[2023-03-05] MEDS: POLYVINYL ALCOHOL OPHT DROPS 15 ML BOTTLE EACHEYE SCH ×6 (02:04→21:01)
[2023-03-05] MEDS: NUTRISOURCE FIBER 4 GM PACKET GT SCH ×3 (05:06→21:01)
[2023-03-05] MEDS: MINERAL OIL/PETROLAT OPHT OINT 3.5 GM TUBE EACHEYE SCH ×3 (05:06→21:01)
[2023-03-05 07:26] VITALS: TEMP 97.2
[2023-03-05] MEDS: HYDROGEN PEROXIDE 3% 118 ML BOTTLE TP SCH ×2 (08:44→19:07)
[2023-03-05] MEDS: DOCUSATE SODIUM 100 MG/10 ML LIQUID UDC GT SCH ×2 (09:11→20:57)
[2023-03-05] MEDS: levETIRAcetam 500 MG/5 ML LIQUID UDC GT SCH ×2 (09:11→20:58)
[2023-03-05] MEDS: GEMFIBROZIL 600 MG TABLET GT SCH ×2 (09:12→17:36)
[2023-03-05] MEDS: REMEDY ESSENTIAL ZINC PASTE 113 GM TOP SCH ×2 (09:20→21:01)
[2023-03-05] MEDS: PROTEIN SUPPLEMENT (PROSTAT) 30 ML LIQUID GT SCH ×2 (09:20→21:00)
[2023-03-05] MEDS: CLOBAZAM 10 MG TABLET GT SCH ×2 (09:20→20:59)
[2023-03-05] MEDS: BENZOYL PEROXIDE 10% GEL 60 GM TUBE TP SCH (09:20)
[2023-03-05] MEDS: LACOSAMIDE 100 MG/10 ML UDC GT SCH ×2 (09:20→21:00)
[2023-03-05] MEDS: LORAZEPAM 0.5 MG TABLET GT PRN (09:33)
[2023-03-05 19:52] VITALS: TEMP 98.8
[2023-03-06] MEDS: ALBUTEROL SULFATE 1.25 MG/3 ML NEBU NEB SCH ×4 (00:46→19:06)
[2023-03-06] MEDS: IPRATROPIUM BROMIDE 0.5 MG/2.5 ML NEBU NEB SCH ×4 (00:46→19:06)
[2023-03-06] MEDS: POLYVINYL ALCOHOL OPHT DROPS 15 ML BOTTLE EACHEYE SCH ×6 (02:54→22:16)
[2023-03-06] MEDS: JEVITY 1.2 1000 ML LIQUID GT PRN (02:58)
[2023-03-06] MEDS: MINERAL OIL/PETROLAT OPHT OINT 3.5 GM TUBE EACHEYE SCH ×3 (05:08→22:16)
[2023-03-06] MEDS: NUTRISOURCE FIBER 4 GM PACKET GT SCH ×3 (05:08→22:16)
[2023-03-06 07:37] VITALS: TEMP 98.8
[2023-03-06] MEDS: DOCUSATE SODIUM 100 MG/10 ML LIQUID UDC GT SCH ×2 (08:34→20:16)
[2023-03-06] MEDS: levETIRAcetam 500 MG/5 ML LIQUID UDC GT SCH ×2 (08:41→20:16)
[2023-03-06] MEDS: PROTEIN SUPPLEMENT (PROSTAT) 30 ML LIQUID GT SCH ×2 (08:42→20:17)
[2023-03-06] MEDS: CLOBAZAM 10 MG TABLET GT SCH ×2 (08:42→20:17)
[2023-03-06] MEDS: GEMFIBROZIL 600 MG TABLET GT SCH ×2 (08:42→17:06)
[2023-03-06] MEDS: LACOSAMIDE 100 MG/10 ML UDC GT SCH ×2 (08:42→20:18)
[2023-03-06] MEDS: BISACODYL 10 MG SUPP.RECT RC SCH (08:44)
[2023-03-06] MEDS: REMEDY ESSENTIAL ZINC PASTE 113 GM TOP SCH ×2 (08:44→20:18)
[2023-03-06] MEDS: HYDROGEN PEROXIDE 3% 118 ML BOTTLE TP SCH ×2 (08:58→21:31)
[2023-03-06 20:04] VITALS: TEMP 98.5
[2023-03-07] MEDS: ALBUTEROL SULFATE 1.25 MG/3 ML NEBU NEB SCH ×4 (01:23→19:30)
[2023-03-07] MEDS: IPRATROPIUM BROMIDE 0.5 MG/2.5 ML NEBU NEB SCH ×4 (01:23→19:30)
[2023-03-07] MEDS: JEVITY 1.2 1000 ML LIQUID GT PRN (02:00)
[2023-03-07] MEDS: POLYVINYL ALCOHOL OPHT DROPS 15 ML BOTTLE EACHEYE SCH ×6 (02:00→22:00)
[2023-03-07] MEDS: NUTRISOURCE FIBER 4 GM PACKET GT SCH ×3 (05:06→22:00)
[2023-03-07] MEDS: MINERAL OIL/PETROLAT OPHT OINT 3.5 GM TUBE EACHEYE SCH ×3 (05:06→22:00)
[2023-03-07 08:00] VITALS: TEMP 97.8
[2023-03-07] MEDS: GEMFIBROZIL 600 MG TABLET GT SCH ×2 (08:51→16:23)
[2023-03-07] MEDS: CLOBAZAM 10 MG TABLET GT SCH ×2 (08:51→21:00)
[2023-03-07] MEDS: levETIRAcetam 500 MG/5 ML LIQUID UDC GT SCH ×2 (08:51→21:00)
[2023-03-07] MEDS: PROTEIN SUPPLEMENT (PROSTAT) 30 ML LIQUID GT SCH ×2 (08:51→21:00)
[2023-03-07] MEDS: LACOSAMIDE 100 MG/10 ML UDC GT SCH ×2 (08:51→21:00)
[2023-03-07] MEDS: DOCUSATE SODIUM 100 MG/10 ML LIQUID UDC GT SCH ×2 (08:51→21:00)
[2023-03-07] MEDS: REMEDY ESSENTIAL ZINC PASTE 113 GM TOP SCH ×2 (08:52→21:00)
[2023-03-07] MEDS: HYDROGEN PEROXIDE 3% 118 ML BOTTLE TP SCH ×2 (09:10→21:00)
[2023-03-07 20:33] VITALS: TEMP 98.7
[2023-03-08] MEDS: ALBUTEROL SULFATE 1.25 MG/3 ML NEBU NEB SCH ×4 (01:07→21:36)
[2023-03-08] MEDS: IPRATROPIUM BROMIDE 0.5 MG/2.5 ML NEBU NEB SCH ×4 (01:07→21:36)
[2023-03-08] MEDS: POLYVINYL ALCOHOL OPHT DROPS 15 ML BOTTLE EACHEYE SCH ×6 (02:00→22:00)
[2023-03-08] MEDS: MINERAL OIL/PETROLAT OPHT OINT 3.5 GM TUBE EACHEYE SCH ×3 (06:05→20:21)
[2023-03-08] MEDS: NUTRISOURCE FIBER 4 GM PACKET GT SCH ×3 (06:05→22:31)
[2023-03-08 08:07] VITALS: TEMP 97.5
[2023-03-08] MEDS: HYDROGEN PEROXIDE 3% 118 ML BOTTLE TP SCH ×2 (08:12→21:37)
[2023-03-08] MEDS: BISACODYL 10 MG SUPP.RECT RC SCH (09:00)
[2023-03-08] MEDS: PROTEIN SUPPLEMENT (PROSTAT) 30 ML LIQUID GT SCH ×2 (09:00→20:20)
[2023-03-08] MEDS: LACOSAMIDE 100 MG/10 ML UDC GT SCH ×2 (09:00→20:20)
[2023-03-08] MEDS: GEMFIBROZIL 600 MG TABLET GT SCH ×2 (09:00→17:00)
[2023-03-08] MEDS: CLOBAZAM 10 MG TABLET GT SCH ×2 (09:00→20:20)
[2023-03-08] MEDS: levETIRAcetam 500 MG/5 ML LIQUID UDC GT SCH ×2 (09:00→20:20)
[2023-03-08] MEDS: REMEDY ESSENTIAL ZINC PASTE 113 GM TOP SCH ×2 (09:00→20:20)
[2023-03-08] MEDS: DOCUSATE SODIUM 100 MG/10 ML LIQUID UDC GT SCH ×2 (09:00→20:20)
[2023-03-08 21:22] VITALS: TEMP 98.1
[2023-03-09] MEDS: IPRATROPIUM BROMIDE 0.5 MG/2.5 ML NEBU NEB SCH ×4 (01:22→19:04)
[2023-03-09] MEDS: ALBUTEROL SULFATE 1.25 MG/3 ML NEBU NEB SCH ×4 (01:22→19:04)
[2023-03-09] MEDS: POLYVINYL ALCOHOL OPHT DROPS 15 ML BOTTLE EACHEYE SCH ×6 (02:00→22:56)
[2023-03-09] MEDS: NUTRISOURCE FIBER 4 GM PACKET GT SCH ×3 (06:25→22:56)
[2023-03-09] MEDS: MINERAL OIL/PETROLAT OPHT OINT 3.5 GM TUBE EACHEYE SCH ×3 (06:25→22:56)
[2023-03-09 08:22] VITALS: TEMP 97.6
[2023-03-09] MEDS: HYDROGEN PEROXIDE 3% 118 ML BOTTLE TP SCH ×2 (08:28→19:04)
[2023-03-09] MEDS: DOCUSATE SODIUM 100 MG/10 ML LIQUID UDC GT SCH ×2 (09:19→21:00)
[2023-03-09] MEDS: levETIRAcetam 500 MG/5 ML LIQUID UDC GT SCH ×2 (09:20→21:00)
[2023-03-09] MEDS: GEMFIBROZIL 600 MG TABLET GT SCH ×2 (09:20→17:08)
[2023-03-09] MEDS: PROTEIN SUPPLEMENT (PROSTAT) 30 ML LIQUID GT SCH ×2 (09:22→21:00)
[2023-03-09] MEDS: REMEDY ESSENTIAL ZINC PASTE 113 GM TOP SCH ×2 (09:22→21:00)
[2023-03-09] MEDS: LACOSAMIDE 100 MG/10 ML UDC GT SCH ×2 (09:34→21:00)
[2023-03-09] MEDS: CLOBAZAM 10 MG TABLET GT SCH ×2 (09:34→21:00)
[2023-03-09 20:00] VITALS: TEMP 98.1
[2023-03-10] MEDS: IPRATROPIUM BROMIDE 0.5 MG/2.5 ML NEBU NEB SCH ×4 (00:30→20:20)
[2023-03-10] MEDS: ALBUTEROL SULFATE 1.25 MG/3 ML NEBU NEB SCH ×4 (00:30→20:20)
[2023-03-10] MEDS: POLYVINYL ALCOHOL OPHT DROPS 15 ML BOTTLE EACHEYE SCH ×6 (01:42→22:00)
[2023-03-10] MEDS: MINERAL OIL/PETROLAT OPHT OINT 3.5 GM TUBE EACHEYE SCH ×3 (05:21→22:00)
[2023-03-10] MEDS: NUTRISOURCE FIBER 4 GM PACKET GT SCH ×3 (05:21→22:00)
[2023-03-10 08:03] VITALS: TEMP 97.4
[2023-03-10] MEDS: HYDROGEN PEROXIDE 3% 118 ML BOTTLE TP SCH ×2 (08:34→21:45)
[2023-03-10] MEDS: DOCUSATE SODIUM 100 MG/10 ML LIQUID UDC GT SCH ×2 (09:38→21:00)
[2023-03-10] MEDS: levETIRAcetam 500 MG/5 ML LIQUID UDC GT SCH ×2 (09:39→21:00)
[2023-03-10] MEDS: PROTEIN SUPPLEMENT (PROSTAT) 30 ML LIQUID GT SCH ×2 (09:39→21:00)
[2023-03-10] MEDS: LACOSAMIDE 100 MG/10 ML UDC GT SCH ×2 (09:39→21:00)
[2023-03-10] MEDS: REMEDY ESSENTIAL ZINC PASTE 113 GM TOP SCH ×2 (09:39→21:00)
[2023-03-10] MEDS: GEMFIBROZIL 600 MG TABLET GT SCH ×2 (09:39→16:14)
[2023-03-10] MEDS: CLOBAZAM 10 MG TABLET GT SCH ×2 (09:39→21:00)
[2023-03-10 20:44] VITALS: TEMP 98.2
[2023-03-11] MEDS: ALBUTEROL SULFATE 1.25 MG/3 ML NEBU NEB SCH ×4 (00:37→19:30)
[2023-03-11] MEDS: IPRATROPIUM BROMIDE 0.5 MG/2.5 ML NEBU NEB SCH ×4 (00:37→19:30)
[2023-03-11] MEDS: POLYVINYL ALCOHOL OPHT DROPS 15 ML BOTTLE EACHEYE SCH ×6 (02:06→21:50)
[2023-03-11] MEDS: MINERAL OIL/PETROLAT OPHT OINT 3.5 GM TUBE EACHEYE SCH ×3 (05:17→21:50)
[2023-03-11] MEDS: NUTRISOURCE FIBER 4 GM PACKET GT SCH ×3 (05:17→21:50)
[2023-03-11 07:27] VITALS: TEMP 98.2
[2023-03-11] MEDS: DOCUSATE SODIUM 100 MG/10 ML LIQUID UDC GT SCH ×2 (08:33→21:50)
[2023-03-11] MEDS: levETIRAcetam 500 MG/5 ML LIQUID UDC GT SCH ×2 (08:33→21:50)
[2023-03-11] MEDS: REMEDY ESSENTIAL ZINC PASTE 113 GM TOP SCH ×2 (08:34→21:50)
[2023-03-11] MEDS: CLOBAZAM 10 MG TABLET GT SCH ×2 (08:34→21:55)
[2023-03-11] MEDS: GEMFIBROZIL 600 MG TABLET GT SCH ×2 (08:34→17:42)
[2023-03-11] MEDS: PROTEIN SUPPLEMENT (PROSTAT) 30 ML LIQUID GT SCH ×2 (08:34→21:50)
[2023-03-11] MEDS: BISACODYL 10 MG SUPP.RECT RC SCH (08:34)
[2023-03-11] MEDS: LACOSAMIDE 100 MG/10 ML UDC GT SCH ×2 (08:34→21:55)
[2023-03-11] MEDS: HYDROGEN PEROXIDE 3% 118 ML BOTTLE TP SCH ×2 (09:35→19:30)
[2023-03-11 20:00] VITALS: TEMP 97.4
[2023-03-12] MEDS: IPRATROPIUM BROMIDE 0.5 MG/2.5 ML NEBU NEB SCH ×4 (01:20→19:12)
[2023-03-12] MEDS: ALBUTEROL SULFATE 1.25 MG/3 ML NEBU NEB SCH ×4 (01:20→19:12)
[2023-03-12] MEDS: POLYVINYL ALCOHOL OPHT DROPS 15 ML BOTTLE EACHEYE SCH ×6 (02:00→22:00)
[2023-03-12] MEDS: NUTRISOURCE FIBER 4 GM PACKET GT SCH ×3 (06:35→22:00)
[2023-03-12] MEDS: MINERAL OIL/PETROLAT OPHT OINT 3.5 GM TUBE EACHEYE SCH ×3 (06:35→22:00)
[2023-03-12 07:26] VITALS: TEMP 97.8
[2023-03-12] MEDS: HYDROGEN PEROXIDE 3% 118 ML BOTTLE TP SCH ×2 (07:40→21:00)
[2023-03-12] MEDS: DOCUSATE SODIUM 100 MG/10 ML LIQUID UDC GT SCH ×2 (08:45→20:31)
[2023-03-12] MEDS: GEMFIBROZIL 600 MG TABLET GT SCH ×2 (08:46→17:25)
[2023-03-12] MEDS: levETIRAcetam 500 MG/5 ML LIQUID UDC GT SCH ×2 (08:46→20:31)
[2023-03-12] MEDS: CLOBAZAM 10 MG TABLET GT SCH ×2 (08:46→20:31)
[2023-03-12] MEDS: PROTEIN SUPPLEMENT (PROSTAT) 30 ML LIQUID GT SCH ×2 (08:47→20:31)
[2023-03-12] MEDS: LACOSAMIDE 100 MG/10 ML UDC GT SCH ×2 (08:47→20:31)
[2023-03-12] MEDS: REMEDY ESSENTIAL ZINC PASTE 113 GM TOP SCH ×2 (08:47→20:31)
[2023-03-12 20:16] VITALS: TEMP 97.3
[2023-03-13] MEDS: IPRATROPIUM BROMIDE 0.5 MG/2.5 ML NEBU NEB SCH ×4 (01:39→19:21)
[2023-03-13] MEDS: ALBUTEROL SULFATE 1.25 MG/3 ML NEBU NEB SCH ×4 (01:39→19:21)
[2023-03-13] MEDS: POLYVINYL ALCOHOL OPHT DROPS 15 ML BOTTLE EACHEYE SCH ×6 (02:00→21:02)
[2023-03-13] MEDS: NUTRISOURCE FIBER 4 GM PACKET GT SCH ×3 (05:12→21:02)
[2023-03-13] MEDS: MINERAL OIL/PETROLAT OPHT OINT 3.5 GM TUBE EACHEYE SCH ×3 (05:12→21:02)
[2023-03-13 07:29] VITALS: TEMP 97.6
[2023-03-13] MEDS: DOCUSATE SODIUM 100 MG/10 ML LIQUID UDC GT SCH ×2 (08:49→21:01)
[2023-03-13] MEDS: levETIRAcetam 500 MG/5 ML LIQUID UDC GT SCH ×2 (08:50→21:01)
[2023-03-13] MEDS: GEMFIBROZIL 600 MG TABLET GT SCH ×2 (08:51→17:16)
[2023-03-13] MEDS: PROTEIN SUPPLEMENT (PROSTAT) 30 ML LIQUID GT SCH ×2 (08:52→21:01)
[2023-03-13] MEDS: CLOBAZAM 10 MG TABLET GT SCH ×2 (09:06→21:06)
[2023-03-13] MEDS: REMEDY ESSENTIAL ZINC PASTE 113 GM TOP SCH ×2 (09:07→21:02)
[2023-03-13] MEDS: BISACODYL 10 MG SUPP.RECT RC SCH (09:07)
[2023-03-13] MEDS: LACOSAMIDE 100 MG/10 ML UDC GT SCH ×2 (09:13→21:06)
[2023-03-13] MEDS: HYDROGEN PEROXIDE 3% 118 ML BOTTLE TP SCH ×2 (09:34→20:51)
[2023-03-13] MEDS: JEVITY 1.2 1000 ML LIQUID GT PRN (12:14)
[2023-03-13 19:56] VITALS: TEMP 97.4
[2023-03-14] MEDS: ALBUTEROL SULFATE 1.25 MG/3 ML NEBU NEB SCH ×4 (00:36→19:22)
[2023-03-14] MEDS: IPRATROPIUM BROMIDE 0.5 MG/2.5 ML NEBU NEB SCH ×4 (00:36→19:22)
[2023-03-14] MEDS: POLYVINYL ALCOHOL OPHT DROPS 15 ML BOTTLE EACHEYE SCH ×6 (02:54→22:08)
[2023-03-14] MEDS: NUTRISOURCE FIBER 4 GM PACKET GT SCH ×3 (05:04→22:08)
[2023-03-14] MEDS: MINERAL OIL/PETROLAT OPHT OINT 3.5 GM TUBE EACHEYE SCH ×3 (05:04→22:08)
[2023-03-14 07:50] VITALS: TEMP 97
[2023-03-14] MEDS: DOCUSATE SODIUM 100 MG/10 ML LIQUID UDC GT SCH ×2 (08:28→20:32)
[2023-03-14] MEDS: levETIRAcetam 500 MG/5 ML LIQUID UDC GT SCH ×2 (08:32→20:32)
[2023-03-14] MEDS: GEMFIBROZIL 600 MG TABLET GT SCH ×2 (08:33→16:55)
[2023-03-14] MEDS: PROTEIN SUPPLEMENT (PROSTAT) 30 ML LIQUID GT SCH ×2 (08:33→20:32)
[2023-03-14] MEDS: REMEDY ESSENTIAL ZINC PASTE 113 GM TOP SCH ×2 (08:34→20:32)
[2023-03-14] MEDS: CLOBAZAM 10 MG TABLET GT SCH ×2 (08:37→20:32)
[2023-03-14] MEDS: LACOSAMIDE 100 MG/10 ML UDC GT SCH ×2 (08:37→20:32)
[2023-03-14] MEDS: HYDROGEN PEROXIDE 3% 118 ML BOTTLE TP SCH ×2 (09:21→20:50)
[2023-03-14] MEDS: JEVITY 1.2 1000 ML LIQUID GT PRN (15:28)
[2023-03-14] MEDS: LORAZEPAM 0.5 MG TABLET GT PRN (15:44)
[2023-03-14 20:14] VITALS: TEMP 97.2
[2023-03-15] MEDS: ALBUTEROL SULFATE 1.25 MG/3 ML NEBU NEB SCH ×4 (00:38→19:07)
[2023-03-15] MEDS: IPRATROPIUM BROMIDE 0.5 MG/2.5 ML NEBU NEB SCH ×4 (00:38→19:07)
[2023-03-15] MEDS: POLYVINYL ALCOHOL OPHT DROPS 15 ML BOTTLE EACHEYE SCH ×6 (02:00→22:00)
[2023-03-15] MEDS: NUTRISOURCE FIBER 4 GM PACKET GT SCH ×3 (05:21→22:00)
[2023-03-15] MEDS: MINERAL OIL/PETROLAT OPHT OINT 3.5 GM TUBE EACHEYE SCH ×3 (05:21→22:08)
[2023-03-15] MEDS: HYDROGEN PEROXIDE 3% 118 ML BOTTLE TP SCH ×2 (07:39→19:07)
[2023-03-15 07:54] VITALS: TEMP 97.5
[2023-03-15] MEDS: DOCUSATE SODIUM 100 MG/10 ML LIQUID UDC GT SCH ×2 (08:18→21:00)
[2023-03-15] MEDS: levETIRAcetam 500 MG/5 ML LIQUID UDC GT SCH ×2 (08:22→21:00)
[2023-03-15] MEDS: PROTEIN SUPPLEMENT (PROSTAT) 30 ML LIQUID GT SCH ×2 (08:22→21:00)
[2023-03-15] MEDS: GEMFIBROZIL 600 MG TABLET GT SCH ×2 (08:22→16:10)
[2023-03-15] MEDS: REMEDY ESSENTIAL ZINC PASTE 113 GM TOP SCH ×2 (08:23→21:00)
[2023-03-15] MEDS: BISACODYL 10 MG SUPP.RECT RC SCH (08:30)
[2023-03-15] MEDS: LACOSAMIDE 100 MG/10 ML UDC GT SCH ×2 (08:30→21:00)
[2023-03-15] MEDS: CLOBAZAM 10 MG TABLET GT SCH ×2 (08:30→21:00)
[2023-03-15] MEDS: JEVITY 1.2 1000 ML LIQUID GT PRN (14:18)
[2023-03-15 20:17] VITALS: TEMP 98
[2023-03-16] MEDS: POLYVINYL ALCOHOL OPHT DROPS 15 ML BOTTLE EACHEYE SCH ×6 (02:00→22:04)
[2023-03-16] MEDS: ALBUTEROL SULFATE 1.25 MG/3 ML NEBU NEB SCH ×4 (02:02→19:23)
[2023-03-16] MEDS: IPRATROPIUM BROMIDE 0.5 MG/2.5 ML NEBU NEB SCH ×4 (02:02→19:23)
[2023-03-16] MEDS: MINERAL OIL/PETROLAT OPHT OINT 3.5 GM TUBE EACHEYE SCH ×3 (05:09→22:04)
[2023-03-16] MEDS: NUTRISOURCE FIBER 4 GM PACKET GT SCH ×3 (05:09→22:04)
[2023-03-16] MEDS: HYDROGEN PEROXIDE 3% 118 ML BOTTLE TP SCH ×2 (07:55→19:23)
[2023-03-16 08:00] VITALS: TEMP 98.2
[2023-03-16] MEDS: DOCUSATE SODIUM 100 MG/10 ML LIQUID UDC GT SCH ×2 (08:09→20:43)
[2023-03-16] MEDS: CLOBAZAM 10 MG TABLET GT SCH ×2 (08:09→20:54)
[2023-03-16] MEDS: GEMFIBROZIL 600 MG TABLET GT SCH ×2 (08:09→17:22)
[2023-03-16] MEDS: LACOSAMIDE 100 MG/10 ML UDC GT SCH ×2 (08:09→20:54)
[2023-03-16] MEDS: levETIRAcetam 500 MG/5 ML LIQUID UDC GT SCH ×2 (08:09→21:00)
[2023-03-16] MEDS: PROTEIN SUPPLEMENT (PROSTAT) 30 ML LIQUID GT SCH ×2 (08:09→20:43)
[2023-03-16] MEDS: REMEDY ESSENTIAL ZINC PASTE 113 GM TOP SCH ×2 (08:10→20:43)
[2023-03-16] MEDS: JEVITY 1.2 1000 ML LIQUID GT PRN (15:28)
[2023-03-16 20:27] VITALS: TEMP 98.1
[2023-03-17] MEDS: IPRATROPIUM BROMIDE 0.5 MG/2.5 ML NEBU NEB SCH ×4 (01:31→20:47)
[2023-03-17] MEDS: ALBUTEROL SULFATE 1.25 MG/3 ML NEBU NEB SCH ×4 (01:32→20:47)
[2023-03-17] MEDS: POLYVINYL ALCOHOL OPHT DROPS 15 ML BOTTLE EACHEYE SCH ×6 (02:00→22:00)
[2023-03-17] MEDS: NUTRISOURCE FIBER 4 GM PACKET GT SCH ×3 (06:21→22:00)
[2023-03-17] MEDS: MINERAL OIL/PETROLAT OPHT OINT 3.5 GM TUBE EACHEYE SCH ×3 (06:21→22:00)
[2023-03-17 07:32] VITALS: TEMP 97.3
[2023-03-17] MEDS: GEMFIBROZIL 600 MG TABLET GT SCH ×2 (08:07→17:33)
[2023-03-17] MEDS: LACOSAMIDE 100 MG/10 ML UDC GT SCH ×2 (08:07→21:00)
[2023-03-17] MEDS: DOCUSATE SODIUM 100 MG/10 ML LIQUID UDC GT SCH ×2 (08:07→21:00)
[2023-03-17] MEDS: levETIRAcetam 500 MG/5 ML LIQUID UDC GT SCH ×2 (08:07→21:00)
[2023-03-17] MEDS: CLOBAZAM 10 MG TABLET GT SCH ×2 (08:07→21:00)
[2023-03-17] MEDS: REMEDY ESSENTIAL ZINC PASTE 113 GM TOP SCH ×2 (08:07→21:00)
[2023-03-17] MEDS: PROTEIN SUPPLEMENT (PROSTAT) 30 ML LIQUID GT SCH ×2 (08:07→21:00)
[2023-03-17] MEDS: HYDROGEN PEROXIDE 3% 118 ML BOTTLE TP SCH ×2 (09:46→22:01)
[2023-03-17 20:00] VITALS: TEMP 97.1
[2023-03-18] MEDS: LORAZEPAM 0.5 MG TABLET GT PRN (00:26)
[2023-03-18] MEDS: IPRATROPIUM BROMIDE 0.5 MG/2.5 ML NEBU NEB SCH ×4 (01:30→20:14)
[2023-03-18] MEDS: ALBUTEROL SULFATE 1.25 MG/3 ML NEBU NEB SCH ×4 (01:30→20:14)
[2023-03-18] MEDS: POLYVINYL ALCOHOL OPHT DROPS 15 ML BOTTLE EACHEYE SCH ×6 (02:00→22:57)
[2023-03-18] MEDS: MINERAL OIL/PETROLAT OPHT OINT 3.5 GM TUBE EACHEYE SCH ×3 (05:35→22:57)
[2023-03-18] MEDS: NUTRISOURCE FIBER 4 GM PACKET GT SCH ×3 (05:36→22:57)
[2023-03-18] MEDS: DOCUSATE SODIUM 100 MG/10 ML LIQUID UDC GT SCH ×2 (09:10→20:14)
[2023-03-18] MEDS: levETIRAcetam 500 MG/5 ML LIQUID UDC GT SCH ×2 (09:11→20:15)
[2023-03-18] MEDS: PROTEIN SUPPLEMENT (PROSTAT) 30 ML LIQUID GT SCH ×2 (09:12→20:16)
[2023-03-18] MEDS: GEMFIBROZIL 600 MG TABLET GT SCH ×2 (09:12→16:10)
[2023-03-18] MEDS: HYDROGEN PEROXIDE 3% 118 ML BOTTLE TP SCH ×2 (09:13→21:00)
[2023-03-18] MEDS: CLOBAZAM 10 MG TABLET GT SCH ×2 (09:19→20:19)
[2023-03-18] MEDS: REMEDY ESSENTIAL ZINC PASTE 113 GM TOP SCH ×2 (09:19→20:19)
[2023-03-18] MEDS: LACOSAMIDE 100 MG/10 ML UDC GT SCH ×2 (09:20→20:18)
[2023-03-18] MEDS: BISACODYL 10 MG SUPP.RECT RC SCH (09:20)
[2023-03-18 11:11] VITALS: TEMP 98
[2023-03-18] MEDS: JEVITY 1.2 1000 ML LIQUID GT PRN (16:11)
[2023-03-18 20:29] VITALS: TEMP 98.4
[2023-03-19] MEDS: IPRATROPIUM BROMIDE 0.5 MG/2.5 ML NEBU NEB SCH ×4 (01:54→19:15)
[2023-03-19] MEDS: ALBUTEROL SULFATE 1.25 MG/3 ML NEBU NEB SCH ×4 (01:54→19:15)
[2023-03-19] MEDS: POLYVINYL ALCOHOL OPHT DROPS 15 ML BOTTLE EACHEYE SCH ×6 (02:00→22:29)
[2023-03-19] MEDS: MINERAL OIL/PETROLAT OPHT OINT 3.5 GM TUBE EACHEYE SCH ×3 (05:20→22:29)
[2023-03-19] MEDS: NUTRISOURCE FIBER 4 GM PACKET GT SCH ×3 (05:22→22:29)
[2023-03-19 08:00] VITALS: TEMP 97.3
[2023-03-19] MEDS: HYDROGEN PEROXIDE 3% 118 ML BOTTLE TP SCH ×2 (08:23→23:11)
[2023-03-19] MEDS: DOCUSATE SODIUM 100 MG/10 ML LIQUID UDC GT SCH ×2 (09:14→20:19)
[2023-03-19] MEDS: GEMFIBROZIL 600 MG TABLET GT SCH ×2 (09:15→16:13)
[2023-03-19] MEDS: levETIRAcetam 500 MG/5 ML LIQUID UDC GT SCH ×2 (09:15→20:20)
[2023-03-19] MEDS: CLOBAZAM 10 MG TABLET GT SCH ×2 (09:15→20:21)
[2023-03-19] MEDS: LACOSAMIDE 100 MG/10 ML UDC GT SCH ×2 (09:16→20:22)
[2023-03-19] MEDS: REMEDY ESSENTIAL ZINC PASTE 113 GM TOP SCH ×2 (09:16→20:22)
[2023-03-19] MEDS: PROTEIN SUPPLEMENT (PROSTAT) 30 ML LIQUID GT SCH ×2 (09:16→20:21)
[2023-03-19] MEDS: JEVITY 1.2 1000 ML LIQUID GT PRN (15:50)
[2023-03-19 20:00] VITALS: TEMP 98
[2023-03-20] MEDS: IPRATROPIUM BROMIDE 0.5 MG/2.5 ML NEBU NEB SCH ×4 (01:44→19:05)
[2023-03-20] MEDS: ALBUTEROL SULFATE 1.25 MG/3 ML NEBU NEB SCH ×4 (01:44→19:05)
[2023-03-20] MEDS: POLYVINYL ALCOHOL OPHT DROPS 15 ML BOTTLE EACHEYE SCH ×6 (02:00→22:18)
[2023-03-20] MEDS: NUTRISOURCE FIBER 4 GM PACKET GT SCH ×3 (05:24→22:19)
[2023-03-20] MEDS: MINERAL OIL/PETROLAT OPHT OINT 3.5 GM TUBE EACHEYE SCH ×3 (05:24→22:18)
[2023-03-20] MEDS: HYDROGEN PEROXIDE 3% 118 ML BOTTLE TP SCH ×2 (07:22→21:28)
[2023-03-20] MEDS: DOCUSATE SODIUM 100 MG/10 ML LIQUID UDC GT SCH ×2 (08:39→21:00)
[2023-03-20] MEDS: levETIRAcetam 500 MG/5 ML LIQUID UDC GT SCH ×2 (08:39→21:00)
[2023-03-20] MEDS: CLOBAZAM 10 MG TABLET GT SCH ×2 (08:39→21:00)
[2023-03-20] MEDS: GEMFIBROZIL 600 MG TABLET GT SCH ×2 (08:39→17:15)
[2023-03-20] MEDS: REMEDY ESSENTIAL ZINC PASTE 113 GM TOP SCH ×2 (08:40→21:00)
[2023-03-20] MEDS: LACOSAMIDE 100 MG/10 ML UDC GT SCH ×2 (08:40→21:00)
[2023-03-20] MEDS: PROTEIN SUPPLEMENT (PROSTAT) 30 ML LIQUID GT SCH ×2 (08:40→21:00)
[2023-03-20] MEDS: BISACODYL 10 MG SUPP.RECT RC SCH (08:40)
[2023-03-20 20:00] VITALS: TEMP 98
[2023-03-21] MEDS: IPRATROPIUM BROMIDE 0.5 MG/2.5 ML NEBU NEB SCH ×4 (01:53→19:09)
[2023-03-21] MEDS: ALBUTEROL SULFATE 1.25 MG/3 ML NEBU NEB SCH ×4 (01:53→19:09)
[2023-03-21] MEDS: POLYVINYL ALCOHOL OPHT DROPS 15 ML BOTTLE EACHEYE SCH ×6 (02:00→22:27)
[2023-03-21] MEDS: NUTRISOURCE FIBER 4 GM PACKET GT SCH ×3 (05:20→22:27)
[2023-03-21] MEDS: MINERAL OIL/PETROLAT OPHT OINT 3.5 GM TUBE EACHEYE SCH ×3 (05:20→22:27)
[2023-03-21 07:58] VITALS: TEMP 97.1
[2023-03-21] MEDS: levETIRAcetam 500 MG/5 ML LIQUID UDC GT SCH ×2 (09:00→20:27)
[2023-03-21] MEDS: HYDROGEN PEROXIDE 3% 118 ML BOTTLE TP SCH ×2 (09:00→21:26)
[2023-03-21] MEDS: DOCUSATE SODIUM 100 MG/10 ML LIQUID UDC GT SCH ×2 (09:00→20:27)
[2023-03-21] MEDS: REMEDY ESSENTIAL ZINC PASTE 113 GM TOP SCH ×2 (09:01→20:27)
[2023-03-21] MEDS: GEMFIBROZIL 600 MG TABLET GT SCH ×2 (09:01→17:51)
[2023-03-21] MEDS: LACOSAMIDE 100 MG/10 ML UDC GT SCH ×2 (09:01→20:27)
[2023-03-21] MEDS: PROTEIN SUPPLEMENT (PROSTAT) 30 ML LIQUID GT SCH ×2 (09:01→20:27)
[2023-03-21] MEDS: CLOBAZAM 10 MG TABLET GT SCH ×2 (09:01→20:27)
[2023-03-21] MEDS: JEVITY 1.2 1000 ML LIQUID GT PRN (17:52)
[2023-03-21 20:00] VITALS: TEMP 98.8
[2023-03-22] MEDS: ALBUTEROL SULFATE 1.25 MG/3 ML NEBU NEB SCH ×4 (00:49→19:18)
[2023-03-22] MEDS: IPRATROPIUM BROMIDE 0.5 MG/2.5 ML NEBU NEB SCH ×4 (00:49→19:18)
[2023-03-22] MEDS: POLYVINYL ALCOHOL OPHT DROPS 15 ML BOTTLE EACHEYE SCH ×6 (02:40→22:04)
[2023-03-22] MEDS: NUTRISOURCE FIBER 4 GM PACKET GT SCH ×3 (05:26→22:04)
[2023-03-22] MEDS: MINERAL OIL/PETROLAT OPHT OINT 3.5 GM TUBE EACHEYE SCH ×3 (05:26→22:04)
[2023-03-22 07:55] VITALS: TEMP 98.5
[2023-03-22] MEDS: DOCUSATE SODIUM 100 MG/10 ML LIQUID UDC GT SCH ×2 (08:33→20:00)
[2023-03-22] MEDS: levETIRAcetam 500 MG/5 ML LIQUID UDC GT SCH ×2 (08:33→20:00)
[2023-03-22] MEDS: CLOBAZAM 10 MG TABLET GT SCH ×2 (08:35→20:00)
[2023-03-22] MEDS: LACOSAMIDE 100 MG/10 ML UDC GT SCH ×2 (08:35→20:00)
[2023-03-22] MEDS: BISACODYL 10 MG SUPP.RECT RC SCH (08:35)
[2023-03-22] MEDS: GEMFIBROZIL 600 MG TABLET GT SCH ×2 (08:35→17:16)
[2023-03-22] MEDS: PROTEIN SUPPLEMENT (PROSTAT) 30 ML LIQUID GT SCH ×2 (08:35→20:00)
[2023-03-22] MEDS: REMEDY ESSENTIAL ZINC PASTE 113 GM TOP SCH ×2 (08:36→20:00)
[2023-03-22] MEDS: HYDROGEN PEROXIDE 3% 118 ML BOTTLE TP SCH ×2 (09:50→19:18)
[2023-03-22] MEDS: JEVITY 1.2 1000 ML LIQUID GT PRN (19:27)
[2023-03-22 20:00] VITALS: TEMP 98.8
[2023-03-23] MEDS: ALBUTEROL SULFATE 1.25 MG/3 ML NEBU NEB SCH ×4 (01:30→19:26)
[2023-03-23] MEDS: IPRATROPIUM BROMIDE 0.5 MG/2.5 ML NEBU NEB SCH ×4 (01:30→19:26)
[2023-03-23] MEDS: POLYVINYL ALCOHOL OPHT DROPS 15 ML BOTTLE EACHEYE SCH ×6 (02:00→21:05)
[2023-03-23] MEDS: NUTRISOURCE FIBER 4 GM PACKET GT SCH ×3 (05:18→21:05)
[2023-03-23] MEDS: MINERAL OIL/PETROLAT OPHT OINT 3.5 GM TUBE EACHEYE SCH ×3 (05:18→21:05)
[2023-03-23] MEDS: HYDROGEN PEROXIDE 3% 118 ML BOTTLE TP SCH ×2 (07:40→19:26)
[2023-03-23 07:45] VITALS: TEMP 98
[2023-03-23] MEDS: DOCUSATE SODIUM 100 MG/10 ML LIQUID UDC GT SCH ×2 (08:49→21:05)
[2023-03-23] MEDS: levETIRAcetam 500 MG/5 ML LIQUID UDC GT SCH ×2 (08:50→21:05)
[2023-03-23] MEDS: GEMFIBROZIL 600 MG TABLET GT SCH ×2 (08:54→16:53)
[2023-03-23] MEDS: PROTEIN SUPPLEMENT (PROSTAT) 30 ML LIQUID GT SCH ×2 (08:54→21:05)
[2023-03-23] MEDS: REMEDY ESSENTIAL ZINC PASTE 113 GM TOP SCH ×2 (08:54→21:05)
[2023-03-23] MEDS: LACOSAMIDE 100 MG/10 ML UDC GT SCH ×2 (08:54→21:05)
[2023-03-23] MEDS: CLOBAZAM 10 MG TABLET GT SCH ×2 (08:54→21:05)
[2023-03-23 20:00] VITALS: TEMP 98.2
[2023-03-24] MEDS: JEVITY 1.2 1000 ML LIQUID GT PRN (00:35)
[2023-03-24] MEDS: IPRATROPIUM BROMIDE 0.5 MG/2.5 ML NEBU NEB SCH ×4 (01:34→19:30)
[2023-03-24] MEDS: ALBUTEROL SULFATE 1.25 MG/3 ML NEBU NEB SCH ×4 (01:34→19:30)
[2023-03-24] MEDS: POLYVINYL ALCOHOL OPHT DROPS 15 ML BOTTLE EACHEYE SCH ×6 (01:36→21:25)
[2023-03-24] MEDS: MINERAL OIL/PETROLAT OPHT OINT 3.5 GM TUBE EACHEYE SCH ×3 (05:16→21:25)
[2023-03-24] MEDS: NUTRISOURCE FIBER 4 GM PACKET GT SCH ×3 (05:16→21:25)
[2023-03-24 08:06] VITALS: TEMP 98
[2023-03-24] MEDS: DOCUSATE SODIUM 100 MG/10 ML LIQUID UDC GT SCH ×2 (08:57→20:03)
[2023-03-24] MEDS: levETIRAcetam 500 MG/5 ML LIQUID UDC GT SCH ×2 (08:58→20:03)
[2023-03-24] MEDS: GEMFIBROZIL 600 MG TABLET GT SCH ×2 (08:59→17:13)
[2023-03-24] MEDS: PROTEIN SUPPLEMENT (PROSTAT) 30 ML LIQUID GT SCH ×2 (08:59→20:03)
[2023-03-24] MEDS: LACOSAMIDE 100 MG/10 ML UDC GT SCH ×2 (09:02→20:03)
[2023-03-24] MEDS: CLOBAZAM 10 MG TABLET GT SCH ×2 (09:03→20:03)
[2023-03-24] MEDS: REMEDY ESSENTIAL ZINC PASTE 113 GM TOP SCH ×2 (09:04→20:03)
[2023-03-24] MEDS: HYDROGEN PEROXIDE 3% 118 ML BOTTLE TP SCH ×2 (09:20→19:30)
[2023-03-24 19:48] VITALS: TEMP 97.6
[2023-03-25] MEDS: ALBUTEROL SULFATE 1.25 MG/3 ML NEBU NEB SCH ×4 (00:45→19:11)
[2023-03-25] MEDS: IPRATROPIUM BROMIDE 0.5 MG/2.5 ML NEBU NEB SCH ×4 (00:45→19:11)
[2023-03-25] MEDS: JEVITY 1.2 1000 ML LIQUID GT PRN (01:50)
[2023-03-25] MEDS: POLYVINYL ALCOHOL OPHT DROPS 15 ML BOTTLE EACHEYE SCH ×6 (02:10→22:11)
[2023-03-25] MEDS: NUTRISOURCE FIBER 4 GM PACKET GT SCH ×3 (05:00→22:11)
[2023-03-25] MEDS: MINERAL OIL/PETROLAT OPHT OINT 3.5 GM TUBE EACHEYE SCH ×3 (05:00→22:11)
[2023-03-25 07:58] LABS: BASOPHILS % (AUTO) 0.6 % (0.0-2.0); EOSINOPHILS # (AUTO) 0.2 K/uL (0.0-0.7); EOSINOPHILS % (AUTO) 3.7 % (0.0-7.0); HEMATOCRIT 36.9 % (36.7-47.1); HEMOGLOBIN 12.7 g/dL (12.5-16.3); LYMPHOCYTES # (AUTO) 2.1 K/uL (0.8-4.8); LYMPHOCYTES % (AUTO) 32.2 % (20.5-51.5); MEAN CORPUSCULAR HEMOGLOBIN 32.7 uug (23.8-33.4); MEAN CORPUSCULAR HGB CONC 34 g/dL (32.5-36.3); MEAN CORPUSCULAR VOLUME 95.4 fL (73.0-96.2); MONOCYTES # (AUTO) 0.6 K/uL (0.1-1.30); MONOCYTES % (AUTO) 9.2 % (0.0-11.0); NEUTROPHILS # (AUTO) 3.6 K/uL (1.8-8.9); NEUTROPHILS % (AUTO) 54.3 % (38.5-71.5); PLATELET COUNT (AUTO) 276 K/uL (152-348); RED BLOOD CELL COUNT(AUTO) 3.87 MIL/uL (4.06-5.63); WHITE BLOOD COUNT (AUTO) 6.7 K/uL (3.6-10.2)
[2023-03-25 08:00] VITALS: TEMP 98
[2023-03-25 08:10] LABS: DIFFERENTIAL COMMENT 1
[2023-03-25] MEDS: DOCUSATE SODIUM 100 MG/10 ML LIQUID UDC GT SCH ×2 (08:20→20:26)
[2023-03-25] MEDS: levETIRAcetam 500 MG/5 ML LIQUID UDC GT SCH ×2 (08:22→20:26)
[2023-03-25] MEDS: GEMFIBROZIL 600 MG TABLET GT SCH ×2 (08:22→17:05)
[2023-03-25] MEDS: PROTEIN SUPPLEMENT (PROSTAT) 30 ML LIQUID GT SCH ×2 (08:23→20:26)
[2023-03-25] MEDS: BISACODYL 10 MG SUPP.RECT RC SCH (08:23)
[2023-03-25] MEDS: LACOSAMIDE 100 MG/10 ML UDC GT SCH ×2 (08:23→20:26)
[2023-03-25] MEDS: CLOBAZAM 10 MG TABLET GT SCH ×2 (08:23→20:26)
[2023-03-25] MEDS: REMEDY ESSENTIAL ZINC PASTE 113 GM TOP SCH ×2 (08:24→20:26)
[2023-03-25 08:28] LABS: ALBUMIN 3.8 g/dL (3.4-5.0); BILIRUBIN,TOTAL 0.6 mg/dL (0.2-1.0); CALCIUM 9.7 mg/dL (8.5-10.1); MAGNESIUM 2.5 mg/dL (1.8-2.4); PHOSPHOROUS 4.1 mg/dL (2.5-4.9); POTASSIUM 3.6 mmol/L (3.5-5.1); TOTAL PROTEIN, SERUM 8.8 g/dL (6.4-8.2)
[2023-03-25] MEDS: HYDROGEN PEROXIDE 3% 118 ML BOTTLE TP SCH ×2 (09:22→19:11)
[2023-03-25 19:51] VITALS: TEMP 97.5
[2023-03-26] MEDS: IPRATROPIUM BROMIDE 0.5 MG/2.5 ML NEBU NEB SCH ×4 (01:47→19:18)
[2023-03-26] MEDS: ALBUTEROL SULFATE 1.25 MG/3 ML NEBU NEB SCH ×4 (01:47→19:18)
[2023-03-26] MEDS: POLYVINYL ALCOHOL OPHT DROPS 15 ML BOTTLE EACHEYE SCH ×6 (02:39→21:16)
[2023-03-26] MEDS: NUTRISOURCE FIBER 4 GM PACKET GT SCH ×3 (05:06→21:16)
[2023-03-26] MEDS: MINERAL OIL/PETROLAT OPHT OINT 3.5 GM TUBE EACHEYE SCH ×3 (05:06→21:16)
[2023-03-26] MEDS ORDERED: CEphaleXIN 500 MG CAPSULE PO SCH (06:00)
[2023-03-26] MEDS: HYDROGEN PEROXIDE 3% 118 ML BOTTLE TP SCH ×2 (07:07→19:18)
[2023-03-26 08:00] VITALS: TEMP 98
[2023-03-26] MEDS: DOCUSATE SODIUM 100 MG/10 ML LIQUID UDC GT SCH ×2 (09:31→21:15)
[2023-03-26] MEDS: levETIRAcetam 500 MG/5 ML LIQUID UDC GT SCH ×2 (09:32→21:15)
[2023-03-26] MEDS: GEMFIBROZIL 600 MG TABLET GT SCH ×2 (09:32→17:14)
[2023-03-26] MEDS: LACOSAMIDE 100 MG/10 ML UDC GT SCH ×2 (09:39→21:15)
[2023-03-26] MEDS: PROTEIN SUPPLEMENT (PROSTAT) 30 ML LIQUID GT SCH ×2 (09:39→21:15)
[2023-03-26] MEDS: CLOBAZAM 10 MG TABLET GT SCH ×2 (09:39→21:15)
[2023-03-26] MEDS: REMEDY ESSENTIAL ZINC PASTE 113 GM TOP SCH ×2 (09:40→21:15)
[2023-03-26] MEDS: JEVITY 1.2 1000 ML LIQUID GT PRN (10:58)
[2023-03-26] MEDS: CEphaleXIN 500 MG CAPSULE GT SCH (18:31)
[2023-03-26 19:48] VITALS: TEMP 98.6
[2023-03-27] MEDS: POLYVINYL ALCOHOL OPHT DROPS 15 ML BOTTLE EACHEYE SCH ×6 (02:00→21:01)
[2023-03-27] MEDS: ALBUTEROL SULFATE 1.25 MG/3 ML NEBU NEB SCH ×4 (02:07→19:17)
[2023-03-27] MEDS: IPRATROPIUM BROMIDE 0.5 MG/2.5 ML NEBU NEB SCH ×4 (02:07→19:17)
[2023-03-27] MEDS: MINERAL OIL/PETROLAT OPHT OINT 3.5 GM TUBE EACHEYE SCH ×3 (05:19→21:02)
[2023-03-27] MEDS: CEphaleXIN 500 MG CAPSULE GT SCH ×2 (05:20→17:52)
[2023-03-27] MEDS: NUTRISOURCE FIBER 4 GM PACKET GT SCH ×3 (05:20→21:02)
[2023-03-27 08:00] VITALS: TEMP 97.8
[2023-03-27] MEDS: HYDROGEN PEROXIDE 3% 118 ML BOTTLE TP SCH ×2 (08:56→21:23)
[2023-03-27] MEDS: levETIRAcetam 500 MG/5 ML LIQUID UDC GT SCH ×2 (09:33→20:33)
[2023-03-27] MEDS: DOCUSATE SODIUM 100 MG/10 ML LIQUID UDC GT SCH ×2 (09:33→20:33)
[2023-03-27] MEDS: GEMFIBROZIL 600 MG TABLET GT SCH ×2 (09:34→16:55)
[2023-03-27] MEDS: LACOSAMIDE 100 MG/10 ML UDC GT SCH ×2 (09:36→21:01)
[2023-03-27] MEDS: CLOBAZAM 10 MG TABLET GT SCH ×2 (09:36→21:01)
[2023-03-27] MEDS: PROTEIN SUPPLEMENT (PROSTAT) 30 ML LIQUID GT SCH ×2 (09:37→20:34)
[2023-03-27] MEDS: REMEDY ESSENTIAL ZINC PASTE 113 GM TOP SCH ×2 (09:38→20:34)
[2023-03-27] MEDS: BISACODYL 10 MG SUPP.RECT RC SCH (09:38)
[2023-03-27] MEDS: JEVITY 1.2 1000 ML LIQUID GT PRN (17:55)
[2023-03-27 20:04] VITALS: TEMP 98.2
[2023-03-28] MEDS: ALBUTEROL SULFATE 1.25 MG/3 ML NEBU NEB SCH ×4 (01:46→19:16)
[2023-03-28] MEDS: IPRATROPIUM BROMIDE 0.5 MG/2.5 ML NEBU NEB SCH ×4 (01:46→19:16)
[2023-03-28] MEDS: POLYVINYL ALCOHOL OPHT DROPS 15 ML BOTTLE EACHEYE SCH ×6 (02:00→22:32)
[2023-03-28] MEDS: CEphaleXIN 500 MG CAPSULE GT SCH ×2 (05:06→17:07)
[2023-03-28] MEDS: NUTRISOURCE FIBER 4 GM PACKET GT SCH ×3 (05:06→22:32)
[2023-03-28] MEDS: MINERAL OIL/PETROLAT OPHT OINT 3.5 GM TUBE EACHEYE SCH ×3 (05:06→22:32)
[2023-03-28 07:42] VITALS: TEMP 98.2
[2023-03-28] MEDS: HYDROGEN PEROXIDE 3% 118 ML BOTTLE TP SCH ×2 (08:20→22:31)
[2023-03-28] MEDS: DOCUSATE SODIUM 100 MG/10 ML LIQUID UDC GT SCH ×2 (08:51→20:50)
[2023-03-28] MEDS: LACOSAMIDE 100 MG/10 ML UDC GT SCH ×2 (08:52→20:50)
[2023-03-28] MEDS: PROTEIN SUPPLEMENT (PROSTAT) 30 ML LIQUID GT SCH ×2 (08:52→20:50)
[2023-03-28] MEDS: levETIRAcetam 500 MG/5 ML LIQUID UDC GT SCH ×2 (08:52→20:50)
[2023-03-28] MEDS: GEMFIBROZIL 600 MG TABLET GT SCH ×2 (08:52→17:03)
[2023-03-28] MEDS: REMEDY ESSENTIAL ZINC PASTE 113 GM TOP SCH ×2 (08:52→20:50)
[2023-03-28] MEDS: CLOBAZAM 10 MG TABLET GT SCH ×2 (08:52→20:50)
[2023-03-28 20:00] VITALS: TEMP 97.4
[2023-03-29] MEDS: IPRATROPIUM BROMIDE 0.5 MG/2.5 ML NEBU NEB SCH ×4 (01:15→19:10)
[2023-03-29] MEDS: ALBUTEROL SULFATE 1.25 MG/3 ML NEBU NEB SCH ×4 (01:16→19:10)
[2023-03-29] MEDS: POLYVINYL ALCOHOL OPHT DROPS 15 ML BOTTLE EACHEYE SCH ×6 (02:00→21:01)
[2023-03-29] MEDS: CEphaleXIN 500 MG CAPSULE GT SCH ×2 (05:35→17:28)
[2023-03-29] MEDS: NUTRISOURCE FIBER 4 GM PACKET GT SCH ×3 (05:35→21:01)
[2023-03-29] MEDS: MINERAL OIL/PETROLAT OPHT OINT 3.5 GM TUBE EACHEYE SCH ×3 (05:35→21:01)
[2023-03-29] MEDS: HYDROGEN PEROXIDE 3% 118 ML BOTTLE TP SCH ×2 (07:40→21:26)
[2023-03-29 07:47] VITALS: TEMP 98.5
[2023-03-29 08:00] VITALS: O2SAT 99
[2023-03-29] MEDS: DOCUSATE SODIUM 100 MG/10 ML LIQUID UDC GT SCH ×2 (08:37→20:51)
[2023-03-29] MEDS: GEMFIBROZIL 600 MG TABLET GT SCH ×2 (08:38→17:28)
[2023-03-29] MEDS: LACOSAMIDE 100 MG/10 ML UDC GT SCH ×2 (08:38→21:01)
[2023-03-29] MEDS: levETIRAcetam 500 MG/5 ML LIQUID UDC GT SCH ×2 (08:38→20:51)
[2023-03-29] MEDS: CLOBAZAM 10 MG TABLET GT SCH ×2 (08:38→21:01)
[2023-03-29] MEDS: PROTEIN SUPPLEMENT (PROSTAT) 30 ML LIQUID GT SCH ×2 (08:38→20:51)
[2023-03-29] MEDS: BISACODYL 10 MG SUPP.RECT RC SCH (08:39)
[2023-03-29] MEDS: REMEDY ESSENTIAL ZINC PASTE 113 GM TOP SCH ×2 (08:39→20:52)
[2023-03-29] MEDS: JEVITY 1.2 1000 ML LIQUID GT PRN (12:35)
[2023-03-29 20:00] VITALS: TEMP 97.4
[2023-03-30] MEDS: ALBUTEROL SULFATE 1.25 MG/3 ML NEBU NEB SCH ×4 (01:04→19:13)
[2023-03-30] MEDS: IPRATROPIUM BROMIDE 0.5 MG/2.5 ML NEBU NEB SCH ×4 (01:04→19:13)
[2023-03-30] MEDS: POLYVINYL ALCOHOL OPHT DROPS 15 ML BOTTLE EACHEYE SCH ×6 (02:00→22:26)
[2023-03-30] MEDS: CEphaleXIN 500 MG CAPSULE GT SCH ×2 (06:17→17:08)
[2023-03-30] MEDS: MINERAL OIL/PETROLAT OPHT OINT 3.5 GM TUBE EACHEYE SCH ×3 (06:17→22:26)
[2023-03-30] MEDS: NUTRISOURCE FIBER 4 GM PACKET GT SCH ×3 (06:17→22:26)
[2023-03-30 08:00] VITALS: TEMP 97.6
[2023-03-30] MEDS: CLOBAZAM 10 MG TABLET GT SCH ×2 (08:33→20:25)
[2023-03-30] MEDS: DOCUSATE SODIUM 100 MG/10 ML LIQUID UDC GT SCH ×2 (08:33→20:14)
[2023-03-30] MEDS: GEMFIBROZIL 600 MG TABLET GT SCH ×2 (08:33→17:07)
[2023-03-30] MEDS: levETIRAcetam 500 MG/5 ML LIQUID UDC GT SCH ×2 (08:33→20:14)
[2023-03-30] MEDS: PROTEIN SUPPLEMENT (PROSTAT) 30 ML LIQUID GT SCH ×2 (08:34→20:16)
[2023-03-30] MEDS: REMEDY ESSENTIAL ZINC PASTE 113 GM TOP SCH ×2 (08:34→20:16)
[2023-03-30] MEDS: LACOSAMIDE 100 MG/10 ML UDC GT SCH ×2 (08:34→20:25)
[2023-03-30] MEDS: HYDROGEN PEROXIDE 3% 118 ML BOTTLE TP SCH ×2 (08:41→21:00)
[2023-03-30] MEDS: JEVITY 1.2 1000 ML LIQUID GT PRN (13:26)
[2023-03-30 20:00] VITALS: TEMP 97.1
[2023-03-31] MEDS: IPRATROPIUM BROMIDE 0.5 MG/2.5 ML NEBU NEB SCH ×4 (01:43→19:22)
[2023-03-31] MEDS: ALBUTEROL SULFATE 1.25 MG/3 ML NEBU NEB SCH ×4 (01:43→19:22)
[2023-03-31] MEDS: POLYVINYL ALCOHOL OPHT DROPS 15 ML BOTTLE EACHEYE SCH ×6 (02:00→21:38)
[2023-03-31] MEDS: NUTRISOURCE FIBER 4 GM PACKET GT SCH ×3 (05:32→21:38)
[2023-03-31] MEDS: MINERAL OIL/PETROLAT OPHT OINT 3.5 GM TUBE EACHEYE SCH ×3 (05:32→21:38)
[2023-03-31] MEDS: CEphaleXIN 500 MG CAPSULE GT SCH ×2 (05:32→18:05)
[2023-03-31] MEDS: DOCUSATE SODIUM 100 MG/10 ML LIQUID UDC GT SCH ×2 (08:23→21:38)
[2023-03-31] MEDS: levETIRAcetam 500 MG/5 ML LIQUID UDC GT SCH ×2 (08:23→21:38)
[2023-03-31] MEDS: GEMFIBROZIL 600 MG TABLET GT SCH ×2 (08:25→17:07)
[2023-03-31] MEDS: PROTEIN SUPPLEMENT (PROSTAT) 30 ML LIQUID GT SCH ×2 (08:25→21:38)
[2023-03-31] MEDS: REMEDY ESSENTIAL ZINC PASTE 113 GM TOP SCH ×2 (08:26→21:38)
[2023-03-31] MEDS: LACOSAMIDE 100 MG/10 ML UDC GT SCH ×2 (08:28→21:38)
[2023-03-31] MEDS: CLOBAZAM 10 MG TABLET GT SCH ×2 (08:28→21:38)
[2023-03-31] MEDS: HYDROGEN PEROXIDE 3% 118 ML BOTTLE TP SCH ×2 (09:00→21:00)
[2023-03-31 11:09] VITALS: TEMP 97
[2023-03-31] MEDS: LORAZEPAM 0.5 MG TABLET GT PRN (11:19)
[2023-03-31] MEDS ORDERED: LIDOCAINE HCL 1% 10 ML VIAL IJ ONE (14:45)
[2023-03-31] MEDS: JEVITY 1.2 1000 ML LIQUID GT PRN (18:07)
[2023-03-31 19:45] VITALS: TEMP 97.6
[2023-03-31] MEDS: NEOMY/BACITRA/POLYMYXIN B OINT UD PACKET TP SCH (21:38)
[2023-04-01] MEDS: ALBUTEROL SULFATE 1.25 MG/3 ML NEBU NEB SCH ×4 (01:20→20:25)
[2023-04-01] MEDS: IPRATROPIUM BROMIDE 0.5 MG/2.5 ML NEBU NEB SCH ×4 (01:20→20:24)
[2023-04-01] MEDS: POLYVINYL ALCOHOL OPHT DROPS 15 ML BOTTLE EACHEYE SCH ×6 (01:26→21:27)
[2023-04-01] MEDS: MINERAL OIL/PETROLAT OPHT OINT 3.5 GM TUBE EACHEYE SCH ×3 (05:29→22:00)
[2023-04-01] MEDS: CEphaleXIN 500 MG CAPSULE GT SCH ×2 (05:30→17:22)
[2023-04-01] MEDS: NUTRISOURCE FIBER 4 GM PACKET GT SCH ×3 (05:30→22:00)
[2023-04-01] MEDS: DOCUSATE SODIUM 100 MG/10 ML LIQUID UDC GT SCH ×2 (08:42→21:20)
[2023-04-01] MEDS: GEMFIBROZIL 600 MG TABLET GT SCH ×2 (08:45→17:22)
[2023-04-01] MEDS: levETIRAcetam 500 MG/5 ML LIQUID UDC GT SCH ×2 (08:45→21:20)
[2023-04-01] MEDS: LACOSAMIDE 100 MG/10 ML UDC GT SCH ×2 (08:46→21:20)
[2023-04-01] MEDS: PROTEIN SUPPLEMENT (PROSTAT) 30 ML LIQUID GT SCH ×2 (08:46→21:20)
[2023-04-01] MEDS: CLOBAZAM 10 MG TABLET GT SCH ×2 (08:46→21:20)
[2023-04-01] MEDS: BISACODYL 10 MG SUPP.RECT RC SCH (08:47)
[2023-04-01] MEDS: REMEDY ESSENTIAL ZINC PASTE 113 GM TOP SCH ×2 (08:47→21:21)
[2023-04-01] MEDS: NEOMY/BACITRA/POLYMYXIN B OINT UD PACKET TP SCH ×2 (08:47→21:21)
[2023-04-01] MEDS: HYDROGEN PEROXIDE 3% 118 ML BOTTLE TP SCH ×2 (08:48→20:25)
[2023-04-01 09:27] VITALS: TEMP 97.8
[2023-04-01] MEDS: JEVITY 1.2 1000 ML LIQUID GT PRN (19:18)
[2023-04-01 20:00] VITALS: TEMP 97.6
[2023-04-02] MEDS: IPRATROPIUM BROMIDE 0.5 MG/2.5 ML NEBU NEB SCH ×4 (01:25→19:21)
[2023-04-02] MEDS: ALBUTEROL SULFATE 1.25 MG/3 ML NEBU NEB SCH ×4 (01:25→19:21)
[2023-04-02] MEDS: POLYVINYL ALCOHOL OPHT DROPS 15 ML BOTTLE EACHEYE SCH ×6 (02:47→21:24)
[2023-04-02] MEDS: MINERAL OIL/PETROLAT OPHT OINT 3.5 GM TUBE EACHEYE SCH ×3 (05:39→21:24)
[2023-04-02] MEDS: NUTRISOURCE FIBER 4 GM PACKET GT SCH ×3 (05:41→21:24)
[2023-04-02 08:00] VITALS: TEMP 97.6
[2023-04-02] MEDS: levETIRAcetam 500 MG/5 ML LIQUID UDC GT SCH ×2 (08:03→21:23)
[2023-04-02] MEDS: GEMFIBROZIL 600 MG TABLET GT SCH ×2 (08:03→16:30)
[2023-04-02] MEDS: DOCUSATE SODIUM 100 MG/10 ML LIQUID UDC GT SCH ×2 (08:03→21:21)
[2023-04-02] MEDS: PROTEIN SUPPLEMENT (PROSTAT) 30 ML LIQUID GT SCH ×2 (08:04→21:34)
[2023-04-02] MEDS: REMEDY ESSENTIAL ZINC PASTE 113 GM TOP SCH ×2 (08:05→21:23)
[2023-04-02] MEDS: NEOMY/BACITRA/POLYMYXIN B OINT UD PACKET TP SCH ×2 (08:05→21:23)
[2023-04-02] MEDS: LACOSAMIDE 100 MG/10 ML UDC GT SCH ×2 (08:07→21:34)
[2023-04-02] MEDS: CLOBAZAM 10 MG TABLET GT SCH ×2 (08:07→21:34)
[2023-04-02] MEDS: HYDROGEN PEROXIDE 3% 118 ML BOTTLE TP SCH ×2 (09:06→19:21)
[2023-04-02] MEDS: JEVITY 1.2 1000 ML LIQUID GT PRN (16:30)
[2023-04-02 20:00] VITALS: TEMP 97.4
[2023-04-03] MEDS: IPRATROPIUM BROMIDE 0.5 MG/2.5 ML NEBU NEB SCH ×4 (01:32→19:57)
[2023-04-03] MEDS: ALBUTEROL SULFATE 1.25 MG/3 ML NEBU NEB SCH ×4 (01:32→19:57)
[2023-04-03] MEDS: POLYVINYL ALCOHOL OPHT DROPS 15 ML BOTTLE EACHEYE SCH ×6 (02:00→22:07)
[2023-04-03] MEDS: NUTRISOURCE FIBER 4 GM PACKET GT SCH ×3 (05:52→22:07)
[2023-04-03] MEDS: MINERAL OIL/PETROLAT OPHT OINT 3.5 GM TUBE EACHEYE SCH ×3 (05:52→22:07)
[2023-04-03 08:00] VITALS: TEMP 98.5
[2023-04-03] MEDS: DOCUSATE SODIUM 100 MG/10 ML LIQUID UDC GT SCH ×2 (09:14→20:58)
[2023-04-03] MEDS: levETIRAcetam 500 MG/5 ML LIQUID UDC GT SCH ×2 (09:15→20:58)
[2023-04-03] MEDS: GEMFIBROZIL 600 MG TABLET GT SCH ×2 (09:18→17:08)
[2023-04-03] MEDS: PROTEIN SUPPLEMENT (PROSTAT) 30 ML LIQUID GT SCH ×2 (09:19→20:58)
[2023-04-03] MEDS: REMEDY ESSENTIAL ZINC PASTE 113 GM TOP SCH ×2 (09:19→20:59)
[2023-04-03] MEDS: BISACODYL 10 MG SUPP.RECT RC SCH (09:19)
[2023-04-03] MEDS: NEOMY/BACITRA/POLYMYXIN B OINT UD PACKET TP SCH ×2 (09:20→20:59)
[2023-04-03] MEDS: LACOSAMIDE 100 MG/10 ML UDC GT SCH ×2 (09:25→20:59)
[2023-04-03] MEDS: CLOBAZAM 10 MG TABLET GT SCH ×2 (09:25→20:58)
[2023-04-03] MEDS: HYDROGEN PEROXIDE 3% 118 ML BOTTLE TP SCH ×2 (09:29→19:57)
[2023-04-03] MEDS: JEVITY 1.2 1000 ML LIQUID GT PRN (19:01)
[2023-04-03 20:29] VITALS: TEMP 97.5
[2023-04-04] MEDS: IPRATROPIUM BROMIDE 0.5 MG/2.5 ML NEBU NEB SCH ×4 (01:29→19:08)
[2023-04-04] MEDS: ALBUTEROL SULFATE 1.25 MG/3 ML NEBU NEB SCH ×4 (01:29→19:08)
[2023-04-04] MEDS: POLYVINYL ALCOHOL OPHT DROPS 15 ML BOTTLE EACHEYE SCH ×6 (02:03→21:18)
[2023-04-04] MEDS: MINERAL OIL/PETROLAT OPHT OINT 3.5 GM TUBE EACHEYE SCH ×3 (05:01→21:18)
[2023-04-04] MEDS: NUTRISOURCE FIBER 4 GM PACKET GT SCH ×3 (05:01→21:18)
[2023-04-04 08:00] VITALS: TEMP 98.3
[2023-04-04] MEDS: DOCUSATE SODIUM 100 MG/10 ML LIQUID UDC GT SCH ×2 (08:34→21:17)
[2023-04-04] MEDS: CLOBAZAM 10 MG TABLET GT SCH ×2 (08:35→21:17)
[2023-04-04] MEDS: levETIRAcetam 500 MG/5 ML LIQUID UDC GT SCH ×2 (08:35→21:17)
[2023-04-04] MEDS: LACOSAMIDE 100 MG/10 ML UDC GT SCH ×2 (08:35→21:17)
[2023-04-04] MEDS: GEMFIBROZIL 600 MG TABLET GT SCH ×2 (08:37→17:07)
[2023-04-04] MEDS: REMEDY ESSENTIAL ZINC PASTE 113 GM TOP SCH ×2 (08:42→21:17)
[2023-04-04] MEDS: NEOMY/BACITRA/POLYMYXIN B OINT UD PACKET TP SCH ×2 (08:42→21:18)
[2023-04-04] MEDS: PROTEIN SUPPLEMENT (PROSTAT) 30 ML LIQUID GT SCH ×2 (08:50→21:17)
[2023-04-04] MEDS: HYDROGEN PEROXIDE 3% 118 ML BOTTLE TP SCH ×2 (09:00→21:14)
[2023-04-04 19:50] VITALS: TEMP 98
[2023-04-05] MEDS: IPRATROPIUM BROMIDE 0.5 MG/2.5 ML NEBU NEB SCH ×4 (01:03→19:13)
[2023-04-05] MEDS: ALBUTEROL SULFATE 1.25 MG/3 ML NEBU NEB SCH ×4 (01:03→19:13)
[2023-04-05] MEDS: JEVITY 1.2 1000 ML LIQUID GT PRN (01:30)
[2023-04-05] MEDS: POLYVINYL ALCOHOL OPHT DROPS 15 ML BOTTLE EACHEYE SCH ×6 (02:31→21:49)
[2023-04-05] MEDS: MINERAL OIL/PETROLAT OPHT OINT 3.5 GM TUBE EACHEYE SCH ×3 (05:28→21:49)
[2023-04-05] MEDS: NUTRISOURCE FIBER 4 GM PACKET GT SCH ×3 (05:28→21:49)
[2023-04-05] MEDS: HYDROGEN PEROXIDE 3% 118 ML BOTTLE TP SCH ×2 (07:45→19:14)
[2023-04-05 08:00] VITALS: TEMP 97.5
[2023-04-05] MEDS: levETIRAcetam 500 MG/5 ML LIQUID UDC GT SCH ×2 (08:55→20:37)
[2023-04-05] MEDS: GEMFIBROZIL 600 MG TABLET GT SCH ×2 (08:55→17:28)
[2023-04-05] MEDS: CLOBAZAM 10 MG TABLET GT SCH ×2 (08:55→20:37)
[2023-04-05] MEDS: LACOSAMIDE 100 MG/10 ML UDC GT SCH ×2 (08:55→20:37)
[2023-04-05] MEDS: PROTEIN SUPPLEMENT (PROSTAT) 30 ML LIQUID GT SCH ×2 (08:55→20:37)
[2023-04-05] MEDS: DOCUSATE SODIUM 100 MG/10 ML LIQUID UDC GT SCH ×2 (08:55→20:37)
[2023-04-05] MEDS: REMEDY ESSENTIAL ZINC PASTE 113 GM TOP SCH ×2 (08:56→20:37)
[2023-04-05] MEDS: NEOMY/BACITRA/POLYMYXIN B OINT UD PACKET TP SCH ×2 (08:56→20:37)
[2023-04-05] MEDS: BISACODYL 10 MG SUPP.RECT RC SCH (08:56)
[2023-04-05 20:04] VITALS: TEMP 97
[2023-04-06] MEDS: IPRATROPIUM BROMIDE 0.5 MG/2.5 ML NEBU NEB SCH ×4 (00:32→19:20)
[2023-04-06] MEDS: ALBUTEROL SULFATE 1.25 MG/3 ML NEBU NEB SCH ×4 (00:33→19:20)
[2023-04-06] MEDS: POLYVINYL ALCOHOL OPHT DROPS 15 ML BOTTLE EACHEYE SCH ×6 (02:04→22:09)
[2023-04-06] MEDS: JEVITY 1.2 1000 ML LIQUID GT PRN (03:22)
[2023-04-06] MEDS: NUTRISOURCE FIBER 4 GM PACKET GT SCH ×3 (05:00→22:09)
[2023-04-06] MEDS: MINERAL OIL/PETROLAT OPHT OINT 3.5 GM TUBE EACHEYE SCH ×3 (05:00→22:09)
[2023-04-06] MEDS: HYDROGEN PEROXIDE 3% 118 ML BOTTLE TP SCH ×2 (09:10→20:38)
[2023-04-06] MEDS: DOCUSATE SODIUM 100 MG/10 ML LIQUID UDC GT SCH ×2 (09:22→20:24)
[2023-04-06] MEDS: levETIRAcetam 500 MG/5 ML LIQUID UDC GT SCH ×2 (09:22→20:24)
[2023-04-06] MEDS: PROTEIN SUPPLEMENT (PROSTAT) 30 ML LIQUID GT SCH ×2 (09:23→20:24)
[2023-04-06] MEDS: REMEDY ESSENTIAL ZINC PASTE 113 GM TOP SCH ×2 (09:23→20:24)
[2023-04-06] MEDS: NEOMY/BACITRA/POLYMYXIN B OINT UD PACKET TP SCH ×2 (09:23→20:24)
[2023-04-06] MEDS: GEMFIBROZIL 600 MG TABLET GT SCH ×2 (09:23→17:09)
[2023-04-06] MEDS: CLOBAZAM 10 MG TABLET GT SCH ×2 (09:37→20:24)
[2023-04-06] MEDS: LACOSAMIDE 100 MG/10 ML UDC GT SCH ×2 (09:37→20:24)
[2023-04-06 20:00] VITALS: TEMP 97.8
[2023-04-07] MEDS: IPRATROPIUM BROMIDE 0.5 MG/2.5 ML NEBU NEB SCH ×4 (00:39→19:16)
[2023-04-07] MEDS: ALBUTEROL SULFATE 1.25 MG/3 ML NEBU NEB SCH ×4 (00:39→19:16)
[2023-04-07] MEDS: POLYVINYL ALCOHOL OPHT DROPS 15 ML BOTTLE EACHEYE SCH ×6 (02:09→21:42)
[2023-04-07] MEDS: JEVITY 1.2 1000 ML LIQUID GT PRN (04:09)
[2023-04-07] MEDS: MINERAL OIL/PETROLAT OPHT OINT 3.5 GM TUBE EACHEYE SCH ×3 (05:49→21:42)
[2023-04-07] MEDS: NUTRISOURCE FIBER 4 GM PACKET GT SCH ×3 (05:49→21:42)
[2023-04-07] MEDS: HYDROGEN PEROXIDE 3% 118 ML BOTTLE TP SCH ×2 (07:18→21:02)
[2023-04-07 07:49] VITALS: TEMP 97.6
[2023-04-07] MEDS: NEOMY/BACITRA/POLYMYXIN B OINT UD PACKET TP SCH ×2 (09:00→20:12)
[2023-04-07] MEDS: REMEDY ESSENTIAL ZINC PASTE 113 GM TOP SCH ×2 (09:00→20:12)
[2023-04-07] MEDS: DOCUSATE SODIUM 100 MG/10 ML LIQUID UDC GT SCH ×2 (09:15→20:12)
[2023-04-07] MEDS: levETIRAcetam 500 MG/5 ML LIQUID UDC GT SCH ×2 (09:16→20:12)
[2023-04-07] MEDS: GEMFIBROZIL 600 MG TABLET GT SCH ×2 (09:16→17:17)
[2023-04-07] MEDS: PROTEIN SUPPLEMENT (PROSTAT) 30 ML LIQUID GT SCH ×2 (09:17→20:12)
[2023-04-07] MEDS: CLOBAZAM 10 MG TABLET GT SCH ×2 (09:21→20:12)
[2023-04-07] MEDS: LACOSAMIDE 100 MG/10 ML UDC GT SCH ×2 (09:21→20:12)
[2023-04-07 20:05] VITALS: TEMP 97.5
[2023-04-08] MEDS: IPRATROPIUM BROMIDE 0.5 MG/2.5 ML NEBU NEB SCH ×4 (00:35→19:11)
[2023-04-08] MEDS: ALBUTEROL SULFATE 1.25 MG/3 ML NEBU NEB SCH ×4 (00:35→19:11)
[2023-04-08] MEDS: POLYVINYL ALCOHOL OPHT DROPS 15 ML BOTTLE EACHEYE SCH ×6 (02:01→22:00)
[2023-04-08] MEDS: MINERAL OIL/PETROLAT OPHT OINT 3.5 GM TUBE EACHEYE SCH ×3 (05:14→22:00)
[2023-04-08] MEDS: NUTRISOURCE FIBER 4 GM PACKET GT SCH ×3 (05:14→22:00)
[2023-04-08] MEDS: JEVITY 1.2 1000 ML LIQUID GT PRN (05:40)
[2023-04-08 08:00] VITALS: TEMP 97.8
[2023-04-08] MEDS: DOCUSATE SODIUM 100 MG/10 ML LIQUID UDC GT SCH ×2 (08:53→20:17)
[2023-04-08] MEDS: levETIRAcetam 500 MG/5 ML LIQUID UDC GT SCH ×2 (08:54→20:17)
[2023-04-08] MEDS: GEMFIBROZIL 600 MG TABLET GT SCH ×2 (08:55→17:42)
[2023-04-08] MEDS: NEOMY/BACITRA/POLYMYXIN B OINT UD PACKET TP SCH ×2 (09:04→20:18)
[2023-04-08] MEDS: REMEDY ESSENTIAL ZINC PASTE 113 GM TOP SCH ×2 (09:04→20:18)
[2023-04-08] MEDS: PROTEIN SUPPLEMENT (PROSTAT) 30 ML LIQUID GT SCH ×2 (09:04→20:17)
[2023-04-08] MEDS: LACOSAMIDE 100 MG/10 ML UDC GT SCH ×2 (09:04→20:17)
[2023-04-08] MEDS: CLOBAZAM 10 MG TABLET GT SCH ×2 (09:04→20:17)
[2023-04-08] MEDS: BISACODYL 10 MG SUPP.RECT RC SCH (09:04)
[2023-04-08] MEDS: HYDROGEN PEROXIDE 3% 118 ML BOTTLE TP SCH ×2 (09:10→21:28)
[2023-04-08 20:02] VITALS: TEMP 98.6
[2023-04-09] MEDS: ALBUTEROL SULFATE 1.25 MG/3 ML NEBU NEB SCH ×4 (00:52→19:20)
[2023-04-09] MEDS: IPRATROPIUM BROMIDE 0.5 MG/2.5 ML NEBU NEB SCH ×4 (00:52→19:20)
[2023-04-09] MEDS: POLYVINYL ALCOHOL OPHT DROPS 15 ML BOTTLE EACHEYE SCH ×6 (02:00→21:07)
[2023-04-09] MEDS: JEVITY 1.2 1000 ML LIQUID GT PRN (04:02)
[2023-04-09] MEDS: NUTRISOURCE FIBER 4 GM PACKET GT SCH ×3 (05:04→21:07)
[2023-04-09] MEDS: MINERAL OIL/PETROLAT OPHT OINT 3.5 GM TUBE EACHEYE SCH ×3 (05:04→21:07)
[2023-04-09 08:21] VITALS: TEMP 97.8
[2023-04-09] MEDS: REMEDY ESSENTIAL ZINC PASTE 113 GM TOP SCH ×2 (09:00→20:48)
[2023-04-09] MEDS: GEMFIBROZIL 600 MG TABLET GT SCH ×2 (09:00→16:06)
[2023-04-09] MEDS: LACOSAMIDE 100 MG/10 ML UDC GT SCH ×2 (09:00→20:48)
[2023-04-09] MEDS: levETIRAcetam 500 MG/5 ML LIQUID UDC GT SCH ×2 (09:00→20:44)
[2023-04-09] MEDS: CLOBAZAM 10 MG TABLET GT SCH ×2 (09:00→20:45)
[2023-04-09] MEDS: DOCUSATE SODIUM 100 MG/10 ML LIQUID UDC GT SCH ×2 (09:00→20:43)
[2023-04-09] MEDS: PROTEIN SUPPLEMENT (PROSTAT) 30 ML LIQUID GT SCH ×2 (09:00→20:45)
[2023-04-09] MEDS: NEOMY/BACITRA/POLYMYXIN B OINT UD PACKET TP SCH ×2 (09:00→20:48)
[2023-04-09] MEDS: HYDROGEN PEROXIDE 3% 118 ML BOTTLE TP SCH ×2 (10:00→19:20)
[2023-04-09 20:04] VITALS: TEMP 98.6
[2023-04-10] MEDS: ALBUTEROL SULFATE 1.25 MG/3 ML NEBU NEB SCH ×4 (00:40→19:20)
[2023-04-10] MEDS: IPRATROPIUM BROMIDE 0.5 MG/2.5 ML NEBU NEB SCH ×4 (00:40→19:20)
[2023-04-10] MEDS: POLYVINYL ALCOHOL OPHT DROPS 15 ML BOTTLE EACHEYE SCH ×6 (02:00→22:46)
[2023-04-10] MEDS: NUTRISOURCE FIBER 4 GM PACKET GT SCH ×3 (05:44→22:46)
[2023-04-10] MEDS: MINERAL OIL/PETROLAT OPHT OINT 3.5 GM TUBE EACHEYE SCH ×3 (05:44→22:46)
[2023-04-10] MEDS: JEVITY 1.2 1000 ML LIQUID GT PRN (05:44)
[2023-04-10 08:00] VITALS: TEMP 98.4
[2023-04-10] MEDS: DOCUSATE SODIUM 100 MG/10 ML LIQUID UDC GT SCH ×2 (09:33→20:36)
[2023-04-10] MEDS: CLOBAZAM 10 MG TABLET GT SCH ×2 (09:33→20:37)
[2023-04-10] MEDS: LACOSAMIDE 100 MG/10 ML UDC GT SCH ×2 (09:33→20:37)
[2023-04-10] MEDS: levETIRAcetam 500 MG/5 ML LIQUID UDC GT SCH ×2 (09:33→20:36)
[2023-04-10] MEDS: GEMFIBROZIL 600 MG TABLET GT SCH ×2 (09:33→17:32)
[2023-04-10] MEDS: PROTEIN SUPPLEMENT (PROSTAT) 30 ML LIQUID GT SCH ×2 (09:34→20:37)
[2023-04-10] MEDS: BISACODYL 10 MG SUPP.RECT RC SCH (09:38)
[2023-04-10] MEDS: REMEDY ESSENTIAL ZINC PASTE 113 GM TOP SCH ×2 (09:38→20:41)
[2023-04-10] MEDS: NEOMY/BACITRA/POLYMYXIN B OINT UD PACKET TP SCH (09:38)
[2023-04-10] MEDS: HYDROGEN PEROXIDE 3% 118 ML BOTTLE TP SCH ×2 (09:48→19:20)
[2023-04-10 19:43] VITALS: TEMP 97.5
[2023-04-11] MEDS: ALBUTEROL SULFATE 1.25 MG/3 ML NEBU NEB SCH ×4 (00:42→19:14)
[2023-04-11] MEDS: IPRATROPIUM BROMIDE 0.5 MG/2.5 ML NEBU NEB SCH ×4 (00:42→19:14)
[2023-04-11] MEDS: POLYVINYL ALCOHOL OPHT DROPS 15 ML BOTTLE EACHEYE SCH ×6 (02:00→22:05)
[2023-04-11] MEDS: NUTRISOURCE FIBER 4 GM PACKET GT SCH ×3 (05:14→22:05)
[2023-04-11] MEDS: MINERAL OIL/PETROLAT OPHT OINT 3.5 GM TUBE EACHEYE SCH ×3 (05:14→22:05)
[2023-04-11] MEDS: JEVITY 1.2 1000 ML LIQUID GT PRN (05:14)
[2023-04-11] MEDS: HYDROGEN PEROXIDE 3% 118 ML BOTTLE TP SCH ×2 (07:32→21:33)
[2023-04-11 08:00] VITALS: TEMP 98
[2023-04-11] MEDS: PROTEIN SUPPLEMENT (PROSTAT) 30 ML LIQUID GT SCH ×2 (09:41→20:19)
[2023-04-11] MEDS: REMEDY ESSENTIAL ZINC PASTE 113 GM TOP SCH ×2 (09:41→20:19)
[2023-04-11] MEDS: levETIRAcetam 500 MG/5 ML LIQUID UDC GT SCH ×2 (09:41→20:18)
[2023-04-11] MEDS: CLOBAZAM 10 MG TABLET GT SCH ×2 (09:41→20:19)
[2023-04-11] MEDS: GEMFIBROZIL 600 MG TABLET GT SCH ×2 (09:41→17:52)
[2023-04-11] MEDS: DOCUSATE SODIUM 100 MG/10 ML LIQUID UDC GT SCH ×2 (09:41→20:18)
[2023-04-11] MEDS: LACOSAMIDE 100 MG/10 ML UDC GT SCH ×2 (09:41→20:19)
[2023-04-11 20:10] VITALS: TEMP 97.9
[2023-04-12] MEDS: IPRATROPIUM BROMIDE 0.5 MG/2.5 ML NEBU NEB SCH ×4 (01:04→20:16)
[2023-04-12] MEDS: ALBUTEROL SULFATE 1.25 MG/3 ML NEBU NEB SCH ×4 (01:04→20:16)
[2023-04-12] MEDS: POLYVINYL ALCOHOL OPHT DROPS 15 ML BOTTLE EACHEYE SCH ×6 (02:00→22:07)
[2023-04-12] MEDS: MINERAL OIL/PETROLAT OPHT OINT 3.5 GM TUBE EACHEYE SCH ×3 (05:05→22:07)
[2023-04-12] MEDS: NUTRISOURCE FIBER 4 GM PACKET GT SCH ×3 (05:05→22:07)
[2023-04-12] MEDS: JEVITY 1.2 1000 ML LIQUID GT PRN (05:05)
[2023-04-12 08:00] VITALS: TEMP 98
[2023-04-12] MEDS: BISACODYL 10 MG SUPP.RECT RC SCH (08:32)
[2023-04-12] MEDS: GEMFIBROZIL 600 MG TABLET GT SCH ×2 (08:32→17:05)
[2023-04-12] MEDS: PROTEIN SUPPLEMENT (PROSTAT) 30 ML LIQUID GT SCH ×2 (08:32→21:00)
[2023-04-12] MEDS: levETIRAcetam 500 MG/5 ML LIQUID UDC GT SCH ×2 (08:32→21:00)
[2023-04-12] MEDS: LACOSAMIDE 100 MG/10 ML UDC GT SCH ×2 (08:32→21:00)
[2023-04-12] MEDS: DOCUSATE SODIUM 100 MG/10 ML LIQUID UDC GT SCH ×2 (08:32→21:00)
[2023-04-12] MEDS: CLOBAZAM 10 MG TABLET GT SCH ×2 (08:32→21:00)
[2023-04-12] MEDS: REMEDY ESSENTIAL ZINC PASTE 113 GM TOP SCH ×2 (08:33→21:00)
[2023-04-12] MEDS: HYDROGEN PEROXIDE 3% 118 ML BOTTLE TP SCH ×2 (09:03→21:00)
[2023-04-12 20:00] VITALS: TEMP 96.9
[2023-04-13] MEDS: IPRATROPIUM BROMIDE 0.5 MG/2.5 ML NEBU NEB SCH ×4 (01:32→19:04)
[2023-04-13] MEDS: ALBUTEROL SULFATE 1.25 MG/3 ML NEBU NEB SCH ×4 (01:33→19:04)
[2023-04-13] MEDS: POLYVINYL ALCOHOL OPHT DROPS 15 ML BOTTLE EACHEYE SCH ×6 (02:16→21:53)
[2023-04-13] MEDS: MINERAL OIL/PETROLAT OPHT OINT 3.5 GM TUBE EACHEYE SCH ×3 (05:37→21:53)
[2023-04-13] MEDS: NUTRISOURCE FIBER 4 GM PACKET GT SCH ×3 (05:37→21:53)
[2023-04-13 07:40] VITALS: TEMP 98.2
[2023-04-13] MEDS: HYDROGEN PEROXIDE 3% 118 ML BOTTLE TP SCH ×2 (09:04→21:29)
[2023-04-13] MEDS: PROTEIN SUPPLEMENT (PROSTAT) 30 ML LIQUID GT SCH ×2 (09:35→21:45)
[2023-04-13] MEDS: GEMFIBROZIL 600 MG TABLET GT SCH ×2 (09:35→16:14)
[2023-04-13] MEDS: CLOBAZAM 10 MG TABLET GT SCH ×2 (09:35→21:52)
[2023-04-13] MEDS: levETIRAcetam 500 MG/5 ML LIQUID UDC GT SCH ×2 (09:35→21:45)
[2023-04-13] MEDS: DOCUSATE SODIUM 100 MG/10 ML LIQUID UDC GT SCH ×2 (09:35→21:44)
[2023-04-13] MEDS: LACOSAMIDE 100 MG/10 ML UDC GT SCH ×2 (09:36→21:52)
[2023-04-13] MEDS: JEVITY 1.2 1000 ML LIQUID GT PRN (09:36)
[2023-04-13] MEDS: REMEDY ESSENTIAL ZINC PASTE 113 GM TOP SCH ×2 (09:36→21:52)
[2023-04-13 19:54] VITALS: TEMP 96.2
[2023-04-14] MEDS: ALBUTEROL SULFATE 1.25 MG/3 ML NEBU NEB SCH ×4 (01:04→19:45)
[2023-04-14] MEDS: IPRATROPIUM BROMIDE 0.5 MG/2.5 ML NEBU NEB SCH ×4 (01:04→19:45)
[2023-04-14] MEDS: POLYVINYL ALCOHOL OPHT DROPS 15 ML BOTTLE EACHEYE SCH ×6 (01:26→22:00)
[2023-04-14] MEDS: NUTRISOURCE FIBER 4 GM PACKET GT SCH ×3 (05:43→22:00)
[2023-04-14] MEDS: MINERAL OIL/PETROLAT OPHT OINT 3.5 GM TUBE EACHEYE SCH ×3 (05:43→22:00)
[2023-04-14 08:00] VITALS: TEMP 97.8
[2023-04-14] MEDS: REMEDY ESSENTIAL ZINC PASTE 113 GM TOP SCH ×2 (08:26→20:41)
[2023-04-14] MEDS: LACOSAMIDE 100 MG/10 ML UDC GT SCH ×2 (08:26→20:46)
[2023-04-14] MEDS: levETIRAcetam 500 MG/5 ML LIQUID UDC GT SCH ×2 (08:26→20:40)
[2023-04-14] MEDS: CLOBAZAM 10 MG TABLET GT SCH ×2 (08:26→20:46)
[2023-04-14] MEDS: GEMFIBROZIL 600 MG TABLET GT SCH ×2 (08:26→16:59)
[2023-04-14] MEDS: PROTEIN SUPPLEMENT (PROSTAT) 30 ML LIQUID GT SCH ×2 (08:26→20:41)
[2023-04-14] MEDS: DOCUSATE SODIUM 100 MG/10 ML LIQUID UDC GT SCH ×2 (08:26→20:40)
[2023-04-14] MEDS: HYDROGEN PEROXIDE 3% 118 ML BOTTLE TP SCH ×2 (09:00→21:00)
[2023-04-14 20:09] VITALS: TEMP 97.9
[2023-04-15] MEDS: IPRATROPIUM BROMIDE 0.5 MG/2.5 ML NEBU NEB SCH ×4 (01:36→19:18)
[2023-04-15] MEDS: ALBUTEROL SULFATE 1.25 MG/3 ML NEBU NEB SCH ×4 (01:36→19:18)
[2023-04-15] MEDS: POLYVINYL ALCOHOL OPHT DROPS 15 ML BOTTLE EACHEYE SCH ×6 (02:00→22:00)
[2023-04-15] MEDS: NUTRISOURCE FIBER 4 GM PACKET GT SCH ×3 (06:56→22:00)
[2023-04-15] MEDS: MINERAL OIL/PETROLAT OPHT OINT 3.5 GM TUBE EACHEYE SCH ×3 (06:56→22:00)
[2023-04-15] MEDS: HYDROGEN PEROXIDE 3% 118 ML BOTTLE TP SCH ×2 (07:16→19:18)
[2023-04-15 07:22] VITALS: TEMP 98.2
[2023-04-15] MEDS: DOCUSATE SODIUM 100 MG/10 ML LIQUID UDC GT SCH ×2 (08:52→20:37)
[2023-04-15] MEDS: BISACODYL 10 MG SUPP.RECT RC SCH (08:52)
[2023-04-15] MEDS: GEMFIBROZIL 600 MG TABLET GT SCH ×2 (08:52→17:14)
[2023-04-15] MEDS: PROTEIN SUPPLEMENT (PROSTAT) 30 ML LIQUID GT SCH ×2 (08:52→20:38)
[2023-04-15] MEDS: LACOSAMIDE 100 MG/10 ML UDC GT SCH ×2 (08:52→20:38)
[2023-04-15] MEDS: REMEDY ESSENTIAL ZINC PASTE 113 GM TOP SCH ×2 (08:52→20:38)
[2023-04-15] MEDS: levETIRAcetam 500 MG/5 ML LIQUID UDC GT SCH ×2 (08:52→20:37)
[2023-04-15] MEDS: CLOBAZAM 10 MG TABLET GT SCH ×2 (08:52→20:37)
[2023-04-15 19:42] VITALS: TEMP 97.1
[2023-04-16] MEDS: ALBUTEROL SULFATE 1.25 MG/3 ML NEBU NEB SCH ×4 (01:15→19:20)
[2023-04-16] MEDS: IPRATROPIUM BROMIDE 0.5 MG/2.5 ML NEBU NEB SCH ×4 (01:15→19:20)
[2023-04-16] MEDS: POLYVINYL ALCOHOL OPHT DROPS 15 ML BOTTLE EACHEYE SCH ×6 (02:00→21:04)
[2023-04-16] MEDS: NUTRISOURCE FIBER 4 GM PACKET GT SCH ×3 (05:15→21:04)
[2023-04-16] MEDS: MINERAL OIL/PETROLAT OPHT OINT 3.5 GM TUBE EACHEYE SCH ×3 (05:15→21:04)
[2023-04-16 08:00] VITALS: TEMP 99
[2023-04-16] MEDS: DOCUSATE SODIUM 100 MG/10 ML LIQUID UDC GT SCH ×2 (08:16→21:03)
[2023-04-16] MEDS: levETIRAcetam 500 MG/5 ML LIQUID UDC GT SCH ×2 (08:17→21:03)
[2023-04-16] MEDS: GEMFIBROZIL 600 MG TABLET GT SCH ×2 (08:17→17:09)
[2023-04-16] MEDS: CLOBAZAM 10 MG TABLET GT SCH ×2 (08:17→21:04)
[2023-04-16] MEDS: PROTEIN SUPPLEMENT (PROSTAT) 30 ML LIQUID GT SCH ×2 (08:18→21:04)
[2023-04-16] MEDS: LACOSAMIDE 100 MG/10 ML UDC GT SCH ×2 (08:18→21:04)
[2023-04-16] MEDS: REMEDY ESSENTIAL ZINC PASTE 113 GM TOP SCH ×2 (08:18→21:04)
[2023-04-16] MEDS: HYDROGEN PEROXIDE 3% 118 ML BOTTLE TP SCH ×2 (08:22→20:52)
[2023-04-16 19:43] VITALS: TEMP 98.1
[2023-04-17] MEDS: ALBUTEROL SULFATE 1.25 MG/3 ML NEBU NEB SCH ×4 (00:39→19:05)
[2023-04-17] MEDS: IPRATROPIUM BROMIDE 0.5 MG/2.5 ML NEBU NEB SCH ×4 (00:39→19:05)
[2023-04-17] MEDS: POLYVINYL ALCOHOL OPHT DROPS 15 ML BOTTLE EACHEYE SCH ×6 (02:00→22:37)
[2023-04-17] MEDS: MINERAL OIL/PETROLAT OPHT OINT 3.5 GM TUBE EACHEYE SCH ×3 (05:27→22:37)
[2023-04-17] MEDS: NUTRISOURCE FIBER 4 GM PACKET GT SCH ×3 (05:27→22:37)
[2023-04-17 08:00] VITALS: TEMP 97.9
[2023-04-17] MEDS: PROTEIN SUPPLEMENT (PROSTAT) 30 ML LIQUID GT SCH ×2 (08:19→20:57)
[2023-04-17] MEDS: CLOBAZAM 10 MG TABLET GT SCH ×2 (08:19→20:57)
[2023-04-17] MEDS: levETIRAcetam 500 MG/5 ML LIQUID UDC GT SCH ×2 (08:19→20:57)
[2023-04-17] MEDS: DOCUSATE SODIUM 100 MG/10 ML LIQUID UDC GT SCH ×2 (08:19→20:57)
[2023-04-17] MEDS: GEMFIBROZIL 600 MG TABLET GT SCH ×2 (08:19→17:26)
[2023-04-17] MEDS: REMEDY ESSENTIAL ZINC PASTE 113 GM TOP SCH ×2 (08:21→20:57)
[2023-04-17] MEDS: BISACODYL 10 MG SUPP.RECT RC SCH (08:21)
[2023-04-17] MEDS: LACOSAMIDE 100 MG/10 ML UDC GT SCH ×2 (08:21→20:57)
[2023-04-17] MEDS: HYDROGEN PEROXIDE 3% 118 ML BOTTLE TP SCH ×2 (09:00→21:03)
[2023-04-17 20:00] VITALS: TEMP 98
[2023-04-18] MEDS: ALBUTEROL SULFATE 1.25 MG/3 ML NEBU NEB SCH ×4 (01:05→19:50)
[2023-04-18] MEDS: IPRATROPIUM BROMIDE 0.5 MG/2.5 ML NEBU NEB SCH ×4 (01:05→19:50)
[2023-04-18] MEDS: POLYVINYL ALCOHOL OPHT DROPS 15 ML BOTTLE EACHEYE SCH ×6 (02:00→21:08)
[2023-04-18] MEDS: NUTRISOURCE FIBER 4 GM PACKET GT SCH ×3 (05:41→21:08)
[2023-04-18] MEDS: MINERAL OIL/PETROLAT OPHT OINT 3.5 GM TUBE EACHEYE SCH ×3 (05:41→21:08)
[2023-04-18 08:00] VITALS: TEMP 98.3
[2023-04-18] MEDS: DOCUSATE SODIUM 100 MG/10 ML LIQUID UDC GT SCH ×2 (08:48→21:07)
[2023-04-18] MEDS: HYDROGEN PEROXIDE 3% 118 ML BOTTLE TP SCH ×2 (08:52→21:12)
[2023-04-18] MEDS: CLOBAZAM 10 MG TABLET GT SCH ×2 (08:52→21:07)
[2023-04-18] MEDS: levETIRAcetam 500 MG/5 ML LIQUID UDC GT SCH ×2 (08:52→21:07)
[2023-04-18] MEDS: LACOSAMIDE 100 MG/10 ML UDC GT SCH ×2 (08:52→21:07)
[2023-04-18] MEDS: REMEDY ESSENTIAL ZINC PASTE 113 GM TOP SCH ×2 (08:52→21:07)
[2023-04-18] MEDS: PROTEIN SUPPLEMENT (PROSTAT) 30 ML LIQUID GT SCH ×2 (08:52→21:07)
[2023-04-18] MEDS: GEMFIBROZIL 600 MG TABLET GT SCH ×2 (08:52→16:01)
[2023-04-18] MEDS: JEVITY 1.2 1000 ML LIQUID GT PRN (14:35)
[2023-04-18 19:38] VITALS: TEMP 97.6
[2023-04-19] MEDS: ALBUTEROL SULFATE 1.25 MG/3 ML NEBU NEB SCH ×4 (00:55→19:00)
[2023-04-19] MEDS: IPRATROPIUM BROMIDE 0.5 MG/2.5 ML NEBU NEB SCH ×4 (00:55→19:00)
[2023-04-19] MEDS: POLYVINYL ALCOHOL OPHT DROPS 15 ML BOTTLE EACHEYE SCH ×6 (02:00→22:18)
[2023-04-19] MEDS: NUTRISOURCE FIBER 4 GM PACKET GT SCH ×3 (05:09→22:18)
[2023-04-19] MEDS: MINERAL OIL/PETROLAT OPHT OINT 3.5 GM TUBE EACHEYE SCH ×3 (05:09→22:18)
[2023-04-19] MEDS: HYDROGEN PEROXIDE 3% 118 ML BOTTLE TP SCH ×2 (07:45→19:00)
[2023-04-19 08:00] VITALS: TEMP 98.6
[2023-04-19] MEDS: DOCUSATE SODIUM 100 MG/10 ML LIQUID UDC GT SCH ×2 (09:09→21:00)
[2023-04-19] MEDS: levETIRAcetam 500 MG/5 ML LIQUID UDC GT SCH ×2 (09:10→21:00)
[2023-04-19] MEDS: REMEDY ESSENTIAL ZINC PASTE 113 GM TOP SCH ×2 (09:11→21:00)
[2023-04-19] MEDS: PROTEIN SUPPLEMENT (PROSTAT) 30 ML LIQUID GT SCH ×2 (09:11→21:00)
[2023-04-19] MEDS: GEMFIBROZIL 600 MG TABLET GT SCH ×2 (09:11→17:05)
[2023-04-19] MEDS: BISACODYL 10 MG SUPP.RECT RC SCH (09:12)
[2023-04-19] MEDS: CLOBAZAM 10 MG TABLET GT SCH ×2 (09:19→21:00)
[2023-04-19] MEDS: LACOSAMIDE 100 MG/10 ML UDC GT SCH ×2 (09:19→21:00)
[2023-04-19] MEDS: JEVITY 1.2 1000 ML LIQUID GT PRN (17:05)
[2023-04-19 20:09] VITALS: TEMP 97.9
[2023-04-20] MEDS: IPRATROPIUM BROMIDE 0.5 MG/2.5 ML NEBU NEB SCH ×4 (01:37→19:30)
[2023-04-20] MEDS: ALBUTEROL SULFATE 1.25 MG/3 ML NEBU NEB SCH ×4 (01:37→19:30)
[2023-04-20] MEDS: POLYVINYL ALCOHOL OPHT DROPS 15 ML BOTTLE EACHEYE SCH ×6 (02:59→22:07)
[2023-04-20] MEDS: NUTRISOURCE FIBER 4 GM PACKET GT SCH ×3 (06:17→22:07)
[2023-04-20] MEDS: MINERAL OIL/PETROLAT OPHT OINT 3.5 GM TUBE EACHEYE SCH ×3 (06:17→22:07)
[2023-04-20] MEDS: HYDROGEN PEROXIDE 3% 118 ML BOTTLE TP SCH ×2 (07:29→19:30)
[2023-04-20 08:00] VITALS: TEMP 97
[2023-04-20] MEDS: DOCUSATE SODIUM 100 MG/10 ML LIQUID UDC GT SCH ×2 (09:33→20:34)
[2023-04-20] MEDS: levETIRAcetam 500 MG/5 ML LIQUID UDC GT SCH ×2 (09:33→20:34)
[2023-04-20] MEDS: CLOBAZAM 10 MG TABLET GT SCH ×2 (09:34→20:34)
[2023-04-20] MEDS: REMEDY ESSENTIAL ZINC PASTE 113 GM TOP SCH ×2 (09:34→20:35)
[2023-04-20] MEDS: PROTEIN SUPPLEMENT (PROSTAT) 30 ML LIQUID GT SCH ×2 (09:34→20:34)
[2023-04-20] MEDS: GEMFIBROZIL 600 MG TABLET GT SCH ×2 (09:34→17:21)
[2023-04-20] MEDS: LACOSAMIDE 100 MG/10 ML UDC GT SCH ×2 (09:34→20:34)
[2023-04-20 20:00] VITALS: TEMP 97.2
[2023-04-21] MEDS: ALBUTEROL SULFATE 1.25 MG/3 ML NEBU NEB SCH ×4 (00:54→19:13)
[2023-04-21] MEDS: IPRATROPIUM BROMIDE 0.5 MG/2.5 ML NEBU NEB SCH ×4 (00:54→19:13)
[2023-04-21] MEDS: POLYVINYL ALCOHOL OPHT DROPS 15 ML BOTTLE EACHEYE SCH ×6 (01:35→22:22)
[2023-04-21] MEDS: NUTRISOURCE FIBER 4 GM PACKET GT SCH ×3 (05:32→22:22)
[2023-04-21] MEDS: MINERAL OIL/PETROLAT OPHT OINT 3.5 GM TUBE EACHEYE SCH ×3 (05:32→22:22)
[2023-04-21] MEDS: JEVITY 1.2 1000 ML LIQUID GT PRN (05:32)
[2023-04-21] MEDS: HYDROGEN PEROXIDE 3% 118 ML BOTTLE TP SCH ×2 (07:09→20:43)
[2023-04-21] MEDS: LACOSAMIDE 100 MG/10 ML UDC GT SCH ×2 (09:01→21:00)
[2023-04-21] MEDS: DOCUSATE SODIUM 100 MG/10 ML LIQUID UDC GT SCH ×2 (09:01→21:00)
[2023-04-21] MEDS: PROTEIN SUPPLEMENT (PROSTAT) 30 ML LIQUID GT SCH ×2 (09:01→21:00)
[2023-04-21] MEDS: REMEDY ESSENTIAL ZINC PASTE 113 GM TOP SCH ×2 (09:01→21:00)
[2023-04-21] MEDS: CLOBAZAM 10 MG TABLET GT SCH ×2 (09:01→21:00)
[2023-04-21] MEDS: GEMFIBROZIL 600 MG TABLET GT SCH ×2 (09:01→16:37)
[2023-04-21] MEDS: levETIRAcetam 500 MG/5 ML LIQUID UDC GT SCH ×2 (09:01→21:00)
[2023-04-21 11:21] VITALS: TEMP 97.8
[2023-04-21 20:12] VITALS: TEMP 98
[2023-04-22] MEDS: IPRATROPIUM BROMIDE 0.5 MG/2.5 ML NEBU NEB SCH ×4 (00:35→19:55)
[2023-04-22] MEDS: ALBUTEROL SULFATE 1.25 MG/3 ML NEBU NEB SCH ×4 (00:35→19:57)
[2023-04-22] MEDS: POLYVINYL ALCOHOL OPHT DROPS 15 ML BOTTLE EACHEYE SCH ×6 (02:20→22:15)
[2023-04-22] MEDS: MINERAL OIL/PETROLAT OPHT OINT 3.5 GM TUBE EACHEYE SCH ×3 (05:10→22:15)
[2023-04-22] MEDS: NUTRISOURCE FIBER 4 GM PACKET GT SCH ×3 (05:10→22:16)
[2023-04-22 08:00] VITALS: TEMP 98.7
[2023-04-22] MEDS: levETIRAcetam 500 MG/5 ML LIQUID UDC GT SCH ×2 (08:32→20:27)
[2023-04-22] MEDS: DOCUSATE SODIUM 100 MG/10 ML LIQUID UDC GT SCH ×2 (08:32→20:26)
[2023-04-22] MEDS: GEMFIBROZIL 600 MG TABLET GT SCH ×2 (08:32→16:02)
[2023-04-22] MEDS: CLOBAZAM 10 MG TABLET GT SCH ×2 (08:32→20:28)
[2023-04-22] MEDS: REMEDY ESSENTIAL ZINC PASTE 113 GM TOP SCH ×2 (08:33→20:29)
[2023-04-22] MEDS: PROTEIN SUPPLEMENT (PROSTAT) 30 ML LIQUID GT SCH ×2 (08:33→20:28)
[2023-04-22] MEDS: BISACODYL 10 MG SUPP.RECT RC SCH (08:33)
[2023-04-22] MEDS: LACOSAMIDE 100 MG/10 ML UDC GT SCH ×2 (08:33→20:29)
[2023-04-22] MEDS: HYDROGEN PEROXIDE 3% 118 ML BOTTLE TP SCH ×2 (09:29→19:55)
[2023-04-22] MEDS: LORAZEPAM 0.5 MG TABLET GT PRN (16:03)
[2023-04-22 20:13] VITALS: TEMP 98.4
[2023-04-23] MEDS: POLYVINYL ALCOHOL OPHT DROPS 15 ML BOTTLE EACHEYE SCH ×6 (02:00→22:31)
[2023-04-23] MEDS: JEVITY 1.2 1000 ML LIQUID GT PRN (02:30)
[2023-04-23] MEDS: MINERAL OIL/PETROLAT OPHT OINT 3.5 GM TUBE EACHEYE SCH ×3 (05:36→22:31)
[2023-04-23] MEDS: NUTRISOURCE FIBER 4 GM PACKET GT SCH ×3 (05:36→22:31)
[2023-04-23] MEDS: HYDROGEN PEROXIDE 3% 118 ML BOTTLE TP SCH ×2 (07:28→21:04)
[2023-04-23] MEDS: IPRATROPIUM BROMIDE 0.5 MG/2.5 ML NEBU NEB SCH ×3 (07:28→20:00)
[2023-04-23] MEDS: ALBUTEROL SULFATE 1.25 MG/3 ML NEBU NEB SCH ×3 (07:28→20:00)
[2023-04-23 08:00] VITALS: TEMP 97.8
[2023-04-23] MEDS: DOCUSATE SODIUM 100 MG/10 ML LIQUID UDC GT SCH ×2 (08:37→20:29)
[2023-04-23] MEDS: levETIRAcetam 500 MG/5 ML LIQUID UDC GT SCH ×2 (08:37→20:29)
[2023-04-23] MEDS: GEMFIBROZIL 600 MG TABLET GT SCH ×2 (08:37→17:01)
[2023-04-23] MEDS: REMEDY ESSENTIAL ZINC PASTE 113 GM TOP SCH ×2 (08:38→20:29)
[2023-04-23] MEDS: CLOBAZAM 10 MG TABLET GT SCH ×2 (08:38→20:35)
[2023-04-23] MEDS: PROTEIN SUPPLEMENT (PROSTAT) 30 ML LIQUID GT SCH ×2 (08:38→20:29)
[2023-04-23] MEDS: LACOSAMIDE 100 MG/10 ML UDC GT SCH ×2 (08:38→20:34)
[2023-04-23 20:41] VITALS: TEMP 98.1
[2023-04-24] MEDS: ALBUTEROL SULFATE 1.25 MG/3 ML NEBU NEB SCH ×4 (00:40→20:00)
[2023-04-24] MEDS: IPRATROPIUM BROMIDE 0.5 MG/2.5 ML NEBU NEB SCH ×4 (00:40→20:00)
[2023-04-24] MEDS: POLYVINYL ALCOHOL OPHT DROPS 15 ML BOTTLE EACHEYE SCH ×6 (02:39→22:00)
[2023-04-24] MEDS: MINERAL OIL/PETROLAT OPHT OINT 3.5 GM TUBE EACHEYE SCH ×3 (06:18→22:00)
[2023-04-24] MEDS: JEVITY 1.2 1000 ML LIQUID GT PRN (06:19)
[2023-04-24] MEDS: NUTRISOURCE FIBER 4 GM PACKET GT SCH ×3 (06:19→22:00)
[2023-04-24] MEDS: HYDROGEN PEROXIDE 3% 118 ML BOTTLE TP SCH ×2 (07:13→20:46)
[2023-04-24 07:31] VITALS: TEMP 98
[2023-04-24] MEDS: DOCUSATE SODIUM 100 MG/10 ML LIQUID UDC GT SCH ×2 (08:53→20:27)
[2023-04-24] MEDS: GEMFIBROZIL 600 MG TABLET GT SCH ×2 (08:58→16:52)
[2023-04-24] MEDS: PROTEIN SUPPLEMENT (PROSTAT) 30 ML LIQUID GT SCH ×2 (08:58→20:27)
[2023-04-24] MEDS: levETIRAcetam 500 MG/5 ML LIQUID UDC GT SCH ×2 (08:58→20:27)
[2023-04-24] MEDS: CLOBAZAM 10 MG TABLET GT SCH ×2 (08:58→20:34)
[2023-04-24] MEDS: BISACODYL 10 MG SUPP.RECT RC SCH (08:59)
[2023-04-24] MEDS: LACOSAMIDE 100 MG/10 ML UDC GT SCH ×2 (08:59→20:34)
[2023-04-24] MEDS: REMEDY ESSENTIAL ZINC PASTE 113 GM TOP SCH ×2 (08:59→20:27)
[2023-04-24 20:26] VITALS: TEMP 97.4
[2023-04-25] MEDS: IPRATROPIUM BROMIDE 0.5 MG/2.5 ML NEBU NEB SCH ×4 (01:03→19:20)
[2023-04-25] MEDS: ALBUTEROL SULFATE 1.25 MG/3 ML NEBU NEB SCH ×4 (01:03→19:20)
[2023-04-25] MEDS: POLYVINYL ALCOHOL OPHT DROPS 15 ML BOTTLE EACHEYE SCH ×6 (02:32→21:06)
[2023-04-25] MEDS: MINERAL OIL/PETROLAT OPHT OINT 3.5 GM TUBE EACHEYE SCH ×3 (06:07→21:06)
[2023-04-25] MEDS: JEVITY 1.2 1000 ML LIQUID GT PRN (06:07)
[2023-04-25] MEDS: NUTRISOURCE FIBER 4 GM PACKET GT SCH ×3 (06:07→21:06)
[2023-04-25] MEDS: HYDROGEN PEROXIDE 3% 118 ML BOTTLE TP SCH ×2 (07:19→19:20)
[2023-04-25 08:03] VITALS: TEMP 97.7
[2023-04-25] MEDS: GEMFIBROZIL 600 MG TABLET GT SCH ×2 (08:30→17:23)
[2023-04-25] MEDS: DOCUSATE SODIUM 100 MG/10 ML LIQUID UDC GT SCH ×2 (08:30→21:06)
[2023-04-25] MEDS: levETIRAcetam 500 MG/5 ML LIQUID UDC GT SCH ×2 (08:30→21:06)
[2023-04-25] MEDS: PROTEIN SUPPLEMENT (PROSTAT) 30 ML LIQUID GT SCH ×2 (08:34→21:06)
[2023-04-25] MEDS: LACOSAMIDE 100 MG/10 ML UDC GT SCH ×2 (08:34→21:06)
[2023-04-25] MEDS: CLOBAZAM 10 MG TABLET GT SCH ×2 (08:34→21:06)
[2023-04-25] MEDS: REMEDY ESSENTIAL ZINC PASTE 113 GM TOP SCH ×2 (08:34→21:06)
[2023-04-25 22:20] VITALS: TEMP 97.4
[2023-04-26] MEDS: ALBUTEROL SULFATE 1.25 MG/3 ML NEBU NEB SCH ×4 (01:20→19:13)
[2023-04-26] MEDS: IPRATROPIUM BROMIDE 0.5 MG/2.5 ML NEBU NEB SCH ×4 (01:20→19:13)
[2023-04-26] MEDS: POLYVINYL ALCOHOL OPHT DROPS 15 ML BOTTLE EACHEYE SCH ×6 (01:31→21:56)
[2023-04-26] MEDS: JEVITY 1.2 1000 ML LIQUID GT PRN (02:50)
[2023-04-26] MEDS: NUTRISOURCE FIBER 4 GM PACKET GT SCH ×3 (05:17→21:56)
[2023-04-26] MEDS: MINERAL OIL/PETROLAT OPHT OINT 3.5 GM TUBE EACHEYE SCH ×3 (05:17→21:56)
[2023-04-26] MEDS: HYDROGEN PEROXIDE 3% 118 ML BOTTLE TP SCH ×2 (07:59→19:14)
[2023-04-26 08:12] VITALS: TEMP 97.9
[2023-04-26] MEDS: levETIRAcetam 500 MG/5 ML LIQUID UDC GT SCH ×2 (09:14→20:46)
[2023-04-26] MEDS: DOCUSATE SODIUM 100 MG/10 ML LIQUID UDC GT SCH ×2 (09:14→20:46)
[2023-04-26] MEDS: GEMFIBROZIL 600 MG TABLET GT SCH ×2 (09:15→17:10)
[2023-04-26] MEDS: LACOSAMIDE 100 MG/10 ML UDC GT SCH ×2 (09:15→20:46)
[2023-04-26] MEDS: BISACODYL 10 MG SUPP.RECT RC SCH (09:15)
[2023-04-26] MEDS: PROTEIN SUPPLEMENT (PROSTAT) 30 ML LIQUID GT SCH ×2 (09:15→20:46)
[2023-04-26] MEDS: REMEDY ESSENTIAL ZINC PASTE 113 GM TOP SCH ×2 (09:15→20:46)
[2023-04-26] MEDS: CLOBAZAM 10 MG TABLET GT SCH ×2 (09:15→20:46)
[2023-04-26 21:33] VITALS: TEMP 98.2
[2023-04-27] MEDS: IPRATROPIUM BROMIDE 0.5 MG/2.5 ML NEBU NEB SCH ×4 (01:11→19:58)
[2023-04-27] MEDS: ALBUTEROL SULFATE 1.25 MG/3 ML NEBU NEB SCH ×4 (01:11→19:52)
[2023-04-27] MEDS: POLYVINYL ALCOHOL OPHT DROPS 15 ML BOTTLE EACHEYE SCH ×6 (02:00→21:47)
[2023-04-27] MEDS: JEVITY 1.2 1000 ML LIQUID GT PRN (05:11)
[2023-04-27] MEDS: MINERAL OIL/PETROLAT OPHT OINT 3.5 GM TUBE EACHEYE SCH ×3 (05:11→21:47)
[2023-04-27] MEDS: NUTRISOURCE FIBER 4 GM PACKET GT SCH ×3 (05:11→21:47)
[2023-04-27] MEDS: HYDROGEN PEROXIDE 3% 118 ML BOTTLE TP SCH ×2 (07:15→21:00)
[2023-04-27 07:40] VITALS: TEMP 97.5
[2023-04-27] MEDS: REMEDY ESSENTIAL ZINC PASTE 113 GM TOP SCH ×2 (09:35→20:39)
[2023-04-27] MEDS: LACOSAMIDE 100 MG/10 ML UDC GT SCH ×2 (09:35→20:39)
[2023-04-27] MEDS: levETIRAcetam 500 MG/5 ML LIQUID UDC GT SCH ×2 (09:35→20:39)
[2023-04-27] MEDS: DOCUSATE SODIUM 100 MG/10 ML LIQUID UDC GT SCH ×2 (09:35→20:39)
[2023-04-27] MEDS: PROTEIN SUPPLEMENT (PROSTAT) 30 ML LIQUID GT SCH ×2 (09:35→20:39)
[2023-04-27] MEDS: GEMFIBROZIL 600 MG TABLET GT SCH ×2 (09:35→16:30)
[2023-04-27] MEDS: CLOBAZAM 10 MG TABLET GT SCH ×2 (09:35→20:39)
[2023-04-27 20:00] VITALS: TEMP 96.2
[2023-04-28] MEDS: ALBUTEROL SULFATE 1.25 MG/3 ML NEBU NEB SCH ×4 (01:30→20:22)
[2023-04-28] MEDS: IPRATROPIUM BROMIDE 0.5 MG/2.5 ML NEBU NEB SCH ×4 (01:30→20:22)
[2023-04-28] MEDS: POLYVINYL ALCOHOL OPHT DROPS 15 ML BOTTLE EACHEYE SCH ×6 (02:33→21:26)
[2023-04-28] MEDS: MINERAL OIL/PETROLAT OPHT OINT 3.5 GM TUBE EACHEYE SCH ×3 (05:08→21:26)
[2023-04-28] MEDS: NUTRISOURCE FIBER 4 GM PACKET GT SCH ×3 (05:09→21:26)
[2023-04-28 08:02] VITALS: TEMP 97.6
[2023-04-28] MEDS: DOCUSATE SODIUM 100 MG/10 ML LIQUID UDC GT SCH ×2 (09:21→20:12)
[2023-04-28] MEDS: levETIRAcetam 500 MG/5 ML LIQUID UDC GT SCH ×2 (09:25→20:12)
[2023-04-28] MEDS: GEMFIBROZIL 600 MG TABLET GT SCH ×2 (09:25→17:43)
[2023-04-28] MEDS: PROTEIN SUPPLEMENT (PROSTAT) 30 ML LIQUID GT SCH ×2 (09:26→20:12)
[2023-04-28] MEDS: REMEDY ESSENTIAL ZINC PASTE 113 GM TOP SCH ×2 (09:26→20:13)
[2023-04-28] MEDS: CLOBAZAM 10 MG TABLET GT SCH ×2 (09:26→20:12)
[2023-04-28] MEDS: LACOSAMIDE 100 MG/10 ML UDC GT SCH ×2 (09:26→20:12)
[2023-04-28] MEDS: HYDROGEN PEROXIDE 3% 118 ML BOTTLE TP SCH ×2 (09:32→20:22)
[2023-04-28] MEDS: JEVITY 1.2 1000 ML LIQUID GT PRN (10:45)
[2023-04-28 20:00] VITALS: TEMP 96.7
[2023-04-29] MEDS: IPRATROPIUM BROMIDE 0.5 MG/2.5 ML NEBU NEB SCH ×4 (01:30→19:20)
[2023-04-29] MEDS: ALBUTEROL SULFATE 1.25 MG/3 ML NEBU NEB SCH ×4 (01:30→19:20)
[2023-04-29] MEDS: POLYVINYL ALCOHOL OPHT DROPS 15 ML BOTTLE EACHEYE SCH ×6 (02:08→21:01)
[2023-04-29] MEDS: NUTRISOURCE FIBER 4 GM PACKET GT SCH ×3 (05:38→21:01)
[2023-04-29] MEDS: MINERAL OIL/PETROLAT OPHT OINT 3.5 GM TUBE EACHEYE SCH ×3 (05:38→21:01)
[2023-04-29 08:00] VITALS: TEMP 97
[2023-04-29] MEDS: DOCUSATE SODIUM 100 MG/10 ML LIQUID UDC GT SCH ×2 (08:49→20:08)
[2023-04-29] MEDS: PROTEIN SUPPLEMENT (PROSTAT) 30 ML LIQUID GT SCH ×2 (08:49→20:08)
[2023-04-29] MEDS: GEMFIBROZIL 600 MG TABLET GT SCH ×2 (08:49→17:10)
[2023-04-29] MEDS: levETIRAcetam 500 MG/5 ML LIQUID UDC GT SCH ×2 (08:49→20:08)
[2023-04-29] MEDS: BISACODYL 10 MG SUPP.RECT RC SCH (08:51)
[2023-04-29] MEDS: REMEDY ESSENTIAL ZINC PASTE 113 GM TOP SCH ×2 (08:51→20:08)
[2023-04-29] MEDS: LACOSAMIDE 100 MG/10 ML UDC GT SCH ×2 (08:55→20:08)
[2023-04-29] MEDS: CLOBAZAM 10 MG TABLET GT SCH ×2 (08:55→20:08)
[2023-04-29] MEDS: HYDROGEN PEROXIDE 3% 118 ML BOTTLE TP SCH ×2 (09:10→19:21)
[2023-04-29 10:30] VITALS: O2SAT 99
[2023-04-29] MEDS: JEVITY 1.2 1000 ML LIQUID GT PRN (15:55)
[2023-04-29 20:00] VITALS: TEMP 98
[2023-04-30] MEDS: ALBUTEROL SULFATE 1.25 MG/3 ML NEBU NEB SCH ×4 (01:30→18:55)
[2023-04-30] MEDS: IPRATROPIUM BROMIDE 0.5 MG/2.5 ML NEBU NEB SCH ×4 (01:30→18:55)
[2023-04-30] MEDS: POLYVINYL ALCOHOL OPHT DROPS 15 ML BOTTLE EACHEYE SCH ×6 (02:00→21:18)
[2023-04-30] MEDS: NUTRISOURCE FIBER 4 GM PACKET GT SCH ×3 (06:05→21:18)
[2023-04-30] MEDS: MINERAL OIL/PETROLAT OPHT OINT 3.5 GM TUBE EACHEYE SCH ×3 (06:05→21:18)
[2023-04-30] MEDS: HYDROGEN PEROXIDE 3% 118 ML BOTTLE TP SCH ×2 (07:12→18:55)
[2023-04-30 08:00] VITALS: TEMP 98
[2023-04-30] MEDS: levETIRAcetam 500 MG/5 ML LIQUID UDC GT SCH ×2 (08:41→21:16)
[2023-04-30] MEDS: DOCUSATE SODIUM 100 MG/10 ML LIQUID UDC GT SCH ×2 (08:41→21:15)
[2023-04-30] MEDS: GEMFIBROZIL 600 MG TABLET GT SCH ×2 (08:43→17:23)
[2023-04-30] MEDS: PROTEIN SUPPLEMENT (PROSTAT) 30 ML LIQUID GT SCH ×2 (08:44→21:17)
[2023-04-30] MEDS: LACOSAMIDE 100 MG/10 ML UDC GT SCH ×2 (08:44→21:17)
[2023-04-30] MEDS: CLOBAZAM 10 MG TABLET GT SCH ×2 (08:44→21:16)
[2023-04-30] MEDS: REMEDY ESSENTIAL ZINC PASTE 113 GM TOP SCH ×2 (08:45→21:18)
[2023-04-30] MEDS: JEVITY 1.2 1000 ML LIQUID GT PRN (15:15)
[2023-04-30 19:57] VITALS: TEMP 98
[2023-05-01] MEDS: IPRATROPIUM BROMIDE 0.5 MG/2.5 ML NEBU NEB SCH ×4 (00:36→19:26)
[2023-05-01] MEDS: ALBUTEROL SULFATE 1.25 MG/3 ML NEBU NEB SCH ×4 (00:36→19:26)
[2023-05-01] MEDS: POLYVINYL ALCOHOL OPHT DROPS 15 ML BOTTLE EACHEYE SCH ×6 (02:00→22:21)
[2023-05-01] MEDS: NUTRISOURCE FIBER 4 GM PACKET GT SCH ×3 (05:42→22:22)
[2023-05-01] MEDS: MINERAL OIL/PETROLAT OPHT OINT 3.5 GM TUBE EACHEYE SCH ×3 (05:42→22:22)
[2023-05-01] MEDS: HYDROGEN PEROXIDE 3% 118 ML BOTTLE TP SCH ×2 (07:16→19:26)
[2023-05-01 08:00] VITALS: TEMP 97.8
[2023-05-01] MEDS: DOCUSATE SODIUM 100 MG/10 ML LIQUID UDC GT SCH ×2 (08:44→21:00)
[2023-05-01] MEDS: levETIRAcetam 500 MG/5 ML LIQUID UDC GT SCH ×2 (08:46→21:00)
[2023-05-01] MEDS: GEMFIBROZIL 600 MG TABLET GT SCH ×2 (08:47→17:24)
[2023-05-01] MEDS: REMEDY ESSENTIAL ZINC PASTE 113 GM TOP SCH ×2 (08:56→21:00)
[2023-05-01] MEDS: BISACODYL 10 MG SUPP.RECT RC SCH (08:56)
[2023-05-01] MEDS: LACOSAMIDE 100 MG/10 ML UDC GT SCH ×2 (08:56→21:00)
[2023-05-01] MEDS: CLOBAZAM 10 MG TABLET GT SCH ×2 (08:56→21:00)
[2023-05-01] MEDS: PROTEIN SUPPLEMENT (PROSTAT) 30 ML LIQUID GT SCH ×2 (09:14→21:00)
[2023-05-01 20:00] VITALS: TEMP 98.1
[2023-05-01] MEDS: JEVITY 1.2 1000 ML LIQUID GT PRN (22:25)
[2023-05-02] MEDS: IPRATROPIUM BROMIDE 0.5 MG/2.5 ML NEBU NEB SCH ×4 (01:05→19:20)
[2023-05-02] MEDS: ALBUTEROL SULFATE 1.25 MG/3 ML NEBU NEB SCH ×4 (01:05→19:20)
[2023-05-02] MEDS: POLYVINYL ALCOHOL OPHT DROPS 15 ML BOTTLE EACHEYE SCH ×6 (02:29→22:17)
[2023-05-02] MEDS: NUTRISOURCE FIBER 4 GM PACKET GT SCH ×3 (05:47→22:17)
[2023-05-02] MEDS: MINERAL OIL/PETROLAT OPHT OINT 3.5 GM TUBE EACHEYE SCH ×3 (05:47→22:17)
[2023-05-02] MEDS: HYDROGEN PEROXIDE 3% 118 ML BOTTLE TP SCH ×2 (09:12→19:20)
[2023-05-02] MEDS: DOCUSATE SODIUM 100 MG/10 ML LIQUID UDC GT SCH ×2 (09:44→20:15)
[2023-05-02] MEDS: REMEDY ESSENTIAL ZINC PASTE 113 GM TOP SCH ×2 (09:44→20:17)
[2023-05-02] MEDS: CLOBAZAM 10 MG TABLET GT SCH ×2 (09:44→20:16)
[2023-05-02] MEDS: levETIRAcetam 500 MG/5 ML LIQUID UDC GT SCH ×2 (09:44→20:15)
[2023-05-02] MEDS: PROTEIN SUPPLEMENT (PROSTAT) 30 ML LIQUID GT SCH ×2 (09:44→20:16)
[2023-05-02] MEDS: LACOSAMIDE 100 MG/10 ML UDC GT SCH ×2 (09:44→20:17)
[2023-05-02] MEDS: GEMFIBROZIL 600 MG TABLET GT SCH ×2 (09:44→17:00)
[2023-05-02] MEDS: JEVITY 1.2 1000 ML LIQUID GT PRN (18:17)
[2023-05-02 20:00] VITALS: TEMP 98.1
[2023-05-03] MEDS: IPRATROPIUM BROMIDE 0.5 MG/2.5 ML NEBU NEB SCH ×4 (00:41→19:03)
[2023-05-03] MEDS: ALBUTEROL SULFATE 1.25 MG/3 ML NEBU NEB SCH ×4 (00:41→19:03)
[2023-05-03] MEDS: POLYVINYL ALCOHOL OPHT DROPS 15 ML BOTTLE EACHEYE SCH ×6 (02:00→22:00)
[2023-05-03] MEDS: NUTRISOURCE FIBER 4 GM PACKET GT SCH ×3 (05:47→22:00)
[2023-05-03] MEDS: MINERAL OIL/PETROLAT OPHT OINT 3.5 GM TUBE EACHEYE SCH ×3 (05:47→22:00)
[2023-05-03] MEDS: HYDROGEN PEROXIDE 3% 118 ML BOTTLE TP SCH ×2 (07:07→21:10)
[2023-05-03 07:35] VITALS: TEMP 98.4
[2023-05-03] MEDS: levETIRAcetam 500 MG/5 ML LIQUID UDC GT SCH ×2 (08:45→20:20)
[2023-05-03] MEDS: PROTEIN SUPPLEMENT (PROSTAT) 30 ML LIQUID GT SCH ×2 (08:45→20:20)
[2023-05-03] MEDS: GEMFIBROZIL 600 MG TABLET GT SCH ×2 (08:45→17:00)
[2023-05-03] MEDS: CLOBAZAM 10 MG TABLET GT SCH ×2 (08:45→20:20)
[2023-05-03] MEDS: BISACODYL 10 MG SUPP.RECT RC SCH (08:45)
[2023-05-03] MEDS: LACOSAMIDE 100 MG/10 ML UDC GT SCH ×2 (08:45→20:20)
[2023-05-03] MEDS: REMEDY ESSENTIAL ZINC PASTE 113 GM TOP SCH ×2 (08:45→21:00)
[2023-05-03] MEDS: DOCUSATE SODIUM 100 MG/10 ML LIQUID UDC GT SCH ×2 (08:45→20:20)
[2023-05-03] MEDS: JEVITY 1.2 1000 ML LIQUID GT PRN (13:16)
[2023-05-03 20:00] VITALS: TEMP 97.7
[2023-05-04] MEDS: ALBUTEROL SULFATE 1.25 MG/3 ML NEBU NEB SCH ×4 (01:04→19:22)
[2023-05-04] MEDS: IPRATROPIUM BROMIDE 0.5 MG/2.5 ML NEBU NEB SCH ×4 (01:04→19:22)
[2023-05-04] MEDS: POLYVINYL ALCOHOL OPHT DROPS 15 ML BOTTLE EACHEYE SCH ×6 (02:42→20:21)
[2023-05-04] MEDS: NUTRISOURCE FIBER 4 GM PACKET GT SCH ×3 (05:17→22:29)
[2023-05-04] MEDS: MINERAL OIL/PETROLAT OPHT OINT 3.5 GM TUBE EACHEYE SCH ×3 (05:17→20:21)
[2023-05-04 07:53] VITALS: TEMP 97.6
[2023-05-04] MEDS: HYDROGEN PEROXIDE 3% 118 ML BOTTLE TP SCH ×2 (07:54→19:22)
[2023-05-04] MEDS: GEMFIBROZIL 600 MG TABLET GT SCH ×2 (09:52→17:24)
[2023-05-04] MEDS: LACOSAMIDE 100 MG/10 ML UDC GT SCH ×2 (09:52→20:29)
[2023-05-04] MEDS: DOCUSATE SODIUM 100 MG/10 ML LIQUID UDC GT SCH ×2 (09:52→20:22)
[2023-05-04] MEDS: levETIRAcetam 500 MG/5 ML LIQUID UDC GT SCH ×2 (09:52→20:20)
[2023-05-04] MEDS: CLOBAZAM 10 MG TABLET GT SCH ×2 (09:52→20:29)
[2023-05-04] MEDS: PROTEIN SUPPLEMENT (PROSTAT) 30 ML LIQUID GT SCH ×2 (09:52→20:20)
[2023-05-04] MEDS: REMEDY ESSENTIAL ZINC PASTE 113 GM TOP SCH ×2 (09:53→20:21)
[2023-05-04] MEDS: JEVITY 1.2 1000 ML LIQUID GT PRN (14:06)
[2023-05-04 20:00] VITALS: TEMP 97.5
[2023-05-05] MEDS: IPRATROPIUM BROMIDE 0.5 MG/2.5 ML NEBU NEB SCH ×4 (01:45→19:12)
[2023-05-05] MEDS: ALBUTEROL SULFATE 1.25 MG/3 ML NEBU NEB SCH ×4 (01:45→19:12)
[2023-05-05] MEDS: POLYVINYL ALCOHOL OPHT DROPS 15 ML BOTTLE EACHEYE SCH ×6 (02:00→21:06)
[2023-05-05] MEDS: NUTRISOURCE FIBER 4 GM PACKET GT SCH ×3 (05:07→21:06)
[2023-05-05] MEDS: MINERAL OIL/PETROLAT OPHT OINT 3.5 GM TUBE EACHEYE SCH ×3 (05:07→21:06)
[2023-05-05] MEDS: HYDROGEN PEROXIDE 3% 118 ML BOTTLE TP SCH ×2 (07:46→20:32)
[2023-05-05 07:57] VITALS: TEMP 97.8
[2023-05-05] MEDS: DOCUSATE SODIUM 100 MG/10 ML LIQUID UDC GT SCH ×2 (08:58→20:37)
[2023-05-05] MEDS: levETIRAcetam 500 MG/5 ML LIQUID UDC GT SCH ×2 (08:59→20:37)
[2023-05-05] MEDS: GEMFIBROZIL 600 MG TABLET GT SCH ×2 (09:00→17:03)
[2023-05-05] MEDS: CLOBAZAM 10 MG TABLET GT SCH ×2 (09:01→20:37)
[2023-05-05] MEDS: PROTEIN SUPPLEMENT (PROSTAT) 30 ML LIQUID GT SCH ×2 (09:01→20:37)
[2023-05-05] MEDS: LACOSAMIDE 100 MG/10 ML UDC GT SCH ×2 (09:02→20:37)
[2023-05-05] MEDS: REMEDY ESSENTIAL ZINC PASTE 113 GM TOP SCH ×2 (09:03→20:38)
[2023-05-05] MEDS: JEVITY 1.2 1000 ML LIQUID GT PRN (13:27)
[2023-05-05 20:00] VITALS: TEMP 97.6
[2023-05-06] MEDS: IPRATROPIUM BROMIDE 0.5 MG/2.5 ML NEBU NEB SCH ×4 (00:33→19:19)
[2023-05-06] MEDS: ALBUTEROL SULFATE 1.25 MG/3 ML NEBU NEB SCH ×4 (00:33→19:19)
[2023-05-06] MEDS: POLYVINYL ALCOHOL OPHT DROPS 15 ML BOTTLE EACHEYE SCH ×6 (01:23→22:30)
[2023-05-06] MEDS: MINERAL OIL/PETROLAT OPHT OINT 3.5 GM TUBE EACHEYE SCH ×3 (05:11→22:30)
[2023-05-06] MEDS: NUTRISOURCE FIBER 4 GM PACKET GT SCH ×3 (05:12→22:31)
[2023-05-06] MEDS: HYDROGEN PEROXIDE 3% 118 ML BOTTLE TP SCH ×2 (09:24→20:25)
[2023-05-06] MEDS: levETIRAcetam 500 MG/5 ML LIQUID UDC GT SCH ×2 (09:31→20:24)
[2023-05-06] MEDS: DOCUSATE SODIUM 100 MG/10 ML LIQUID UDC GT SCH ×2 (09:31→20:24)
[2023-05-06] MEDS: PROTEIN SUPPLEMENT (PROSTAT) 30 ML LIQUID GT SCH ×2 (09:32→20:24)
[2023-05-06] MEDS: CLOBAZAM 10 MG TABLET GT SCH ×2 (09:32→20:24)
[2023-05-06] MEDS: REMEDY ESSENTIAL ZINC PASTE 113 GM TOP SCH ×2 (09:32→20:25)
[2023-05-06] MEDS: LACOSAMIDE 100 MG/10 ML UDC GT SCH ×2 (09:32→20:24)
[2023-05-06] MEDS: BISACODYL 10 MG SUPP.RECT RC SCH (09:32)
[2023-05-06] MEDS: GEMFIBROZIL 600 MG TABLET GT SCH ×2 (09:32→18:00)
[2023-05-06 09:37] VITALS: TEMP 97.8
[2023-05-06] MEDS: JEVITY 1.2 1000 ML LIQUID GT PRN (14:19)
[2023-05-06 20:00] VITALS: TEMP 97.8
[2023-05-07] MEDS: IPRATROPIUM BROMIDE 0.5 MG/2.5 ML NEBU NEB SCH ×4 (01:24→18:54)
[2023-05-07] MEDS: ALBUTEROL SULFATE 1.25 MG/3 ML NEBU NEB SCH ×4 (01:24→18:54)
[2023-05-07] MEDS: POLYVINYL ALCOHOL OPHT DROPS 15 ML BOTTLE EACHEYE SCH ×6 (02:16→22:00)
[2023-05-07] MEDS: MINERAL OIL/PETROLAT OPHT OINT 3.5 GM TUBE EACHEYE SCH ×3 (05:25→22:00)
[2023-05-07] MEDS: NUTRISOURCE FIBER 4 GM PACKET GT SCH ×3 (05:25→22:00)
[2023-05-07 07:22] VITALS: TEMP 97.6
[2023-05-07] MEDS: HYDROGEN PEROXIDE 3% 118 ML BOTTLE TP SCH ×2 (07:32→18:54)
[2023-05-07] MEDS: DOCUSATE SODIUM 100 MG/10 ML LIQUID UDC GT SCH ×2 (09:20→20:20)
[2023-05-07] MEDS: LACOSAMIDE 100 MG/10 ML UDC GT SCH ×2 (09:21→20:22)
[2023-05-07] MEDS: GEMFIBROZIL 600 MG TABLET GT SCH ×2 (09:21→17:15)
[2023-05-07] MEDS: REMEDY ESSENTIAL ZINC PASTE 113 GM TOP SCH ×2 (09:21→20:22)
[2023-05-07] MEDS: PROTEIN SUPPLEMENT (PROSTAT) 30 ML LIQUID GT SCH ×2 (09:21→20:22)
[2023-05-07] MEDS: levETIRAcetam 500 MG/5 ML LIQUID UDC GT SCH ×2 (09:21→20:22)
[2023-05-07] MEDS: CLOBAZAM 10 MG TABLET GT SCH ×2 (09:21→20:22)
[2023-05-07 20:00] VITALS: TEMP 97.3
[2023-05-08] MEDS: ALBUTEROL SULFATE 1.25 MG/3 ML NEBU NEB SCH ×4 (01:42→19:14)
[2023-05-08] MEDS: IPRATROPIUM BROMIDE 0.5 MG/2.5 ML NEBU NEB SCH ×4 (01:42→19:14)
[2023-05-08] MEDS: POLYVINYL ALCOHOL OPHT DROPS 15 ML BOTTLE EACHEYE SCH ×6 (02:00→22:00)
[2023-05-08] MEDS: MINERAL OIL/PETROLAT OPHT OINT 3.5 GM TUBE EACHEYE SCH ×3 (05:18→22:00)
[2023-05-08] MEDS: NUTRISOURCE FIBER 4 GM PACKET GT SCH ×3 (05:18→22:00)
[2023-05-08] MEDS: HYDROGEN PEROXIDE 3% 118 ML BOTTLE TP SCH ×2 (07:06→21:45)
[2023-05-08 07:22] VITALS: TEMP 98
[2023-05-08] MEDS: DOCUSATE SODIUM 100 MG/10 ML LIQUID UDC GT SCH ×2 (08:35→20:35)
[2023-05-08] MEDS: CLOBAZAM 10 MG TABLET GT SCH ×2 (08:37→20:35)
[2023-05-08] MEDS: GEMFIBROZIL 600 MG TABLET GT SCH ×2 (08:37→17:14)
[2023-05-08] MEDS: levETIRAcetam 500 MG/5 ML LIQUID UDC GT SCH ×2 (08:37→20:35)
[2023-05-08] MEDS: PROTEIN SUPPLEMENT (PROSTAT) 30 ML LIQUID GT SCH ×2 (08:37→20:35)
[2023-05-08] MEDS: REMEDY ESSENTIAL ZINC PASTE 113 GM TOP SCH ×2 (08:38→20:35)
[2023-05-08] MEDS: BISACODYL 10 MG SUPP.RECT RC SCH (08:38)
[2023-05-08] MEDS: LACOSAMIDE 100 MG/10 ML UDC GT SCH ×2 (08:38→20:35)
[2023-05-08 22:44] VITALS: TEMP 94.5
[2023-05-09] MEDS: IPRATROPIUM BROMIDE 0.5 MG/2.5 ML NEBU NEB SCH ×4 (00:43→19:08)
[2023-05-09] MEDS: ALBUTEROL SULFATE 1.25 MG/3 ML NEBU NEB SCH ×4 (00:43→19:08)
[2023-05-09] MEDS: POLYVINYL ALCOHOL OPHT DROPS 15 ML BOTTLE EACHEYE SCH ×6 (02:19→21:46)
[2023-05-09] MEDS: NUTRISOURCE FIBER 4 GM PACKET GT SCH ×3 (05:28→21:46)
[2023-05-09] MEDS: MINERAL OIL/PETROLAT OPHT OINT 3.5 GM TUBE EACHEYE SCH ×3 (05:28→21:46)
[2023-05-09] MEDS: HYDROGEN PEROXIDE 3% 118 ML BOTTLE TP SCH ×2 (07:31→21:24)
[2023-05-09 07:54] VITALS: TEMP 97.5
[2023-05-09] MEDS: PROTEIN SUPPLEMENT (PROSTAT) 30 ML LIQUID GT SCH ×2 (08:47→21:45)
[2023-05-09] MEDS: GEMFIBROZIL 600 MG TABLET GT SCH ×2 (08:47→17:41)
[2023-05-09] MEDS: DOCUSATE SODIUM 100 MG/10 ML LIQUID UDC GT SCH ×2 (08:47→21:45)
[2023-05-09] MEDS: CLOBAZAM 10 MG TABLET GT SCH ×2 (08:47→21:45)
[2023-05-09] MEDS: LACOSAMIDE 100 MG/10 ML UDC GT SCH ×2 (08:47→21:45)
[2023-05-09] MEDS: levETIRAcetam 500 MG/5 ML LIQUID UDC GT SCH ×2 (08:47→21:45)
[2023-05-09] MEDS: REMEDY ESSENTIAL ZINC PASTE 113 GM TOP SCH ×2 (08:48→21:45)
[2023-05-09] MEDS ORDERED: INFLUENZA VACCINE 2023-2024 0.5 ML DISP.SYRIN IM ONE (13:00)
[2023-05-09 20:00] VITALS: TEMP 96.6
[2023-05-10] MEDS: IPRATROPIUM BROMIDE 0.5 MG/2.5 ML NEBU NEB SCH ×4 (01:02→19:04)
[2023-05-10] MEDS: ALBUTEROL SULFATE 1.25 MG/3 ML NEBU NEB SCH ×4 (01:02→19:04)
[2023-05-10] MEDS: POLYVINYL ALCOHOL OPHT DROPS 15 ML BOTTLE EACHEYE SCH ×6 (02:00→22:07)
[2023-05-10] MEDS: MINERAL OIL/PETROLAT OPHT OINT 3.5 GM TUBE EACHEYE SCH ×3 (06:05→22:07)
[2023-05-10] MEDS: NUTRISOURCE FIBER 4 GM PACKET GT SCH ×3 (06:05→22:07)
[2023-05-10] MEDS: HYDROGEN PEROXIDE 3% 118 ML BOTTLE TP SCH ×2 (07:12→20:52)
[2023-05-10 07:41] VITALS: TEMP 97.6
[2023-05-10] MEDS: levETIRAcetam 500 MG/5 ML LIQUID UDC GT SCH ×2 (08:19→20:24)
[2023-05-10] MEDS: DOCUSATE SODIUM 100 MG/10 ML LIQUID UDC GT SCH ×2 (08:19→20:24)
[2023-05-10] MEDS: GEMFIBROZIL 600 MG TABLET GT SCH ×2 (08:23→17:00)
[2023-05-10] MEDS: LACOSAMIDE 100 MG/10 ML UDC GT SCH ×2 (08:23→20:28)
[2023-05-10] MEDS: REMEDY ESSENTIAL ZINC PASTE 113 GM TOP SCH ×2 (08:23→20:25)
[2023-05-10] MEDS: PROTEIN SUPPLEMENT (PROSTAT) 30 ML LIQUID GT SCH ×2 (08:23→20:25)
[2023-05-10] MEDS: CLOBAZAM 10 MG TABLET GT SCH ×2 (08:23→20:34)
[2023-05-10] MEDS: BISACODYL 10 MG SUPP.RECT RC SCH (08:23)
[2023-05-10] MEDS: JEVITY 1.2 1000 ML LIQUID GT PRN (12:15)
[2023-05-10 20:00] VITALS: TEMP 96.8
[2023-05-11] MEDS: IPRATROPIUM BROMIDE 0.5 MG/2.5 ML NEBU NEB SCH ×4 (01:04→19:37)
[2023-05-11] MEDS: ALBUTEROL SULFATE 1.25 MG/3 ML NEBU NEB SCH ×4 (01:04→19:37)
[2023-05-11] MEDS: POLYVINYL ALCOHOL OPHT DROPS 15 ML BOTTLE EACHEYE SCH ×6 (02:14→21:27)
[2023-05-11] MEDS: NUTRISOURCE FIBER 4 GM PACKET GT SCH ×3 (05:31→21:27)
[2023-05-11] MEDS: MINERAL OIL/PETROLAT OPHT OINT 3.5 GM TUBE EACHEYE SCH ×3 (05:31→21:27)
[2023-05-11 07:39] VITALS: TEMP 98.2
[2023-05-11] MEDS: PROTEIN SUPPLEMENT (PROSTAT) 30 ML LIQUID GT SCH ×2 (08:36→21:26)
[2023-05-11] MEDS: REMEDY ESSENTIAL ZINC PASTE 113 GM TOP SCH ×2 (08:36→21:27)
[2023-05-11] MEDS: HYDROGEN PEROXIDE 3% 118 ML BOTTLE TP SCH ×2 (08:36→19:37)
[2023-05-11] MEDS: DOCUSATE SODIUM 100 MG/10 ML LIQUID UDC GT SCH ×2 (08:36→21:26)
[2023-05-11] MEDS: GEMFIBROZIL 600 MG TABLET GT SCH ×2 (08:36→17:35)
[2023-05-11] MEDS: levETIRAcetam 500 MG/5 ML LIQUID UDC GT SCH ×2 (08:36→21:26)
[2023-05-11] MEDS: CLOBAZAM 10 MG TABLET GT SCH ×2 (08:41→21:26)
[2023-05-11] MEDS: LACOSAMIDE 100 MG/10 ML UDC GT SCH ×2 (08:41→21:26)
[2023-05-11 20:00] VITALS: TEMP 97.1
[2023-05-12] MEDS: IPRATROPIUM BROMIDE 0.5 MG/2.5 ML NEBU NEB SCH ×4 (01:37→19:15)
[2023-05-12] MEDS: ALBUTEROL SULFATE 1.25 MG/3 ML NEBU NEB SCH ×4 (01:37→19:15)
[2023-05-12] MEDS: POLYVINYL ALCOHOL OPHT DROPS 15 ML BOTTLE EACHEYE SCH ×6 (02:43→22:06)
[2023-05-12] MEDS: NUTRISOURCE FIBER 4 GM PACKET GT SCH ×3 (06:00→22:06)
[2023-05-12] MEDS: MINERAL OIL/PETROLAT OPHT OINT 3.5 GM TUBE EACHEYE SCH ×3 (06:00→22:06)
[2023-05-12] MEDS: HYDROGEN PEROXIDE 3% 118 ML BOTTLE TP SCH ×2 (07:09→19:15)
[2023-05-12 07:34] VITALS: TEMP 98.2
[2023-05-12] MEDS: levETIRAcetam 500 MG/5 ML LIQUID UDC GT SCH ×2 (08:50→20:27)
[2023-05-12] MEDS: DOCUSATE SODIUM 100 MG/10 ML LIQUID UDC GT SCH ×2 (08:50→20:27)
[2023-05-12] MEDS: REMEDY ESSENTIAL ZINC PASTE 113 GM TOP SCH ×2 (08:57→20:37)
[2023-05-12] MEDS: LACOSAMIDE 100 MG/10 ML UDC GT SCH ×2 (08:57→20:37)
[2023-05-12] MEDS: CLOBAZAM 10 MG TABLET GT SCH ×2 (08:57→20:36)
[2023-05-12] MEDS: PROTEIN SUPPLEMENT (PROSTAT) 30 ML LIQUID GT SCH ×2 (08:57→20:37)
[2023-05-12] MEDS: GEMFIBROZIL 600 MG TABLET GT SCH ×2 (08:57→17:00)
[2023-05-12] MEDS: JEVITY 1.2 1000 ML LIQUID GT PRN (09:22)
[2023-05-12 20:32] VITALS: TEMP 98.6
[2023-05-13] MEDS: ALBUTEROL SULFATE 1.25 MG/3 ML NEBU NEB SCH ×4 (01:19→19:30)
[2023-05-13] MEDS: IPRATROPIUM BROMIDE 0.5 MG/2.5 ML NEBU NEB SCH ×4 (01:19→19:30)
[2023-05-13] MEDS: POLYVINYL ALCOHOL OPHT DROPS 15 ML BOTTLE EACHEYE SCH ×6 (02:00→22:37)
[2023-05-13] MEDS: MINERAL OIL/PETROLAT OPHT OINT 3.5 GM TUBE EACHEYE SCH ×3 (05:03→22:37)
[2023-05-13] MEDS: NUTRISOURCE FIBER 4 GM PACKET GT SCH ×3 (05:03→22:37)
[2023-05-13 08:06] VITALS: TEMP 98.2
[2023-05-13] MEDS: DOCUSATE SODIUM 100 MG/10 ML LIQUID UDC GT SCH ×2 (09:00→21:32)
[2023-05-13] MEDS: LACOSAMIDE 100 MG/10 ML UDC GT SCH ×2 (09:00→21:33)
[2023-05-13] MEDS: CLOBAZAM 10 MG TABLET GT SCH ×2 (09:00→21:32)
[2023-05-13] MEDS: REMEDY ESSENTIAL ZINC PASTE 113 GM TOP SCH ×2 (09:00→21:33)
[2023-05-13] MEDS: GEMFIBROZIL 600 MG TABLET GT SCH ×2 (09:00→17:26)
[2023-05-13] MEDS: PROTEIN SUPPLEMENT (PROSTAT) 30 ML LIQUID GT SCH ×2 (09:00→21:33)
[2023-05-13] MEDS: BISACODYL 10 MG SUPP.RECT RC SCH (09:00)
[2023-05-13] MEDS: levETIRAcetam 500 MG/5 ML LIQUID UDC GT SCH ×2 (09:00→21:32)
[2023-05-13] MEDS: HYDROGEN PEROXIDE 3% 118 ML BOTTLE TP SCH ×2 (09:03→21:04)
[2023-05-13 20:19] VITALS: TEMP 98.5
[2023-05-14] MEDS: IPRATROPIUM BROMIDE 0.5 MG/2.5 ML NEBU NEB SCH ×4 (01:49→19:23)
[2023-05-14] MEDS: ALBUTEROL SULFATE 1.25 MG/3 ML NEBU NEB SCH ×4 (01:49→19:23)
[2023-05-14] MEDS: POLYVINYL ALCOHOL OPHT DROPS 15 ML BOTTLE EACHEYE SCH ×6 (02:00→21:10)
[2023-05-14] MEDS: NUTRISOURCE FIBER 4 GM PACKET GT SCH ×3 (05:08→21:10)
[2023-05-14] MEDS: MINERAL OIL/PETROLAT OPHT OINT 3.5 GM TUBE EACHEYE SCH ×3 (05:08→21:10)
[2023-05-14 07:25] VITALS: TEMP 97.8
[2023-05-14] MEDS: HYDROGEN PEROXIDE 3% 118 ML BOTTLE TP SCH ×2 (08:21→21:58)
[2023-05-14] MEDS: REMEDY ESSENTIAL ZINC PASTE 113 GM TOP SCH ×2 (09:26→20:39)
[2023-05-14] MEDS: GEMFIBROZIL 600 MG TABLET GT SCH ×2 (09:26→17:10)
[2023-05-14] MEDS: DOCUSATE SODIUM 100 MG/10 ML LIQUID UDC GT SCH ×2 (09:26→20:38)
[2023-05-14] MEDS: levETIRAcetam 500 MG/5 ML LIQUID UDC GT SCH ×2 (09:26→20:38)
[2023-05-14] MEDS: PROTEIN SUPPLEMENT (PROSTAT) 30 ML LIQUID GT SCH ×2 (09:26→20:39)
[2023-05-14] MEDS: CLOBAZAM 10 MG TABLET GT SCH ×2 (09:27→20:38)
[2023-05-14] MEDS: LACOSAMIDE 100 MG/10 ML UDC GT SCH ×2 (09:27→20:39)
[2023-05-14 20:07] VITALS: TEMP 98.4
[2023-05-15] MEDS: ALBUTEROL SULFATE 1.25 MG/3 ML NEBU NEB SCH ×4 (00:52→19:03)
[2023-05-15] MEDS: IPRATROPIUM BROMIDE 0.5 MG/2.5 ML NEBU NEB SCH ×4 (00:52→19:03)
[2023-05-15] MEDS: POLYVINYL ALCOHOL OPHT DROPS 15 ML BOTTLE EACHEYE SCH ×6 (02:10→22:44)
[2023-05-15] MEDS: MINERAL OIL/PETROLAT OPHT OINT 3.5 GM TUBE EACHEYE SCH ×3 (05:33→22:44)
[2023-05-15] MEDS: NUTRISOURCE FIBER 4 GM PACKET GT SCH ×3 (05:33→22:44)
[2023-05-15 08:00] VITALS: TEMP 97.8
[2023-05-15] MEDS: DOCUSATE SODIUM 100 MG/10 ML LIQUID UDC GT SCH ×2 (08:51→20:25)
[2023-05-15] MEDS: levETIRAcetam 500 MG/5 ML LIQUID UDC GT SCH ×2 (08:52→20:26)
[2023-05-15] MEDS: CLOBAZAM 10 MG TABLET GT SCH ×2 (08:53→20:26)
[2023-05-15] MEDS: GEMFIBROZIL 600 MG TABLET GT SCH ×2 (08:53→17:14)
[2023-05-15] MEDS: PROTEIN SUPPLEMENT (PROSTAT) 30 ML LIQUID GT SCH ×2 (08:54→20:26)
[2023-05-15] MEDS: LACOSAMIDE 100 MG/10 ML UDC GT SCH ×2 (08:54→20:26)
[2023-05-15] MEDS: REMEDY ESSENTIAL ZINC PASTE 113 GM TOP SCH ×2 (08:54→20:26)
[2023-05-15] MEDS: BISACODYL 10 MG SUPP.RECT RC SCH (08:54)
[2023-05-15] MEDS: HYDROGEN PEROXIDE 3% 118 ML BOTTLE TP SCH ×2 (09:04→20:59)
[2023-05-15] MEDS: JEVITY 1.2 1000 ML LIQUID GT PRN (10:36)
[2023-05-15 20:00] VITALS: TEMP 96.6
[2023-05-16] MEDS: IPRATROPIUM BROMIDE 0.5 MG/2.5 ML NEBU NEB SCH ×4 (01:02→19:06)
[2023-05-16] MEDS: ALBUTEROL SULFATE 1.25 MG/3 ML NEBU NEB SCH ×4 (01:03→19:06)
[2023-05-16] MEDS: POLYVINYL ALCOHOL OPHT DROPS 15 ML BOTTLE EACHEYE SCH ×6 (02:00→22:13)
[2023-05-16] MEDS: NUTRISOURCE FIBER 4 GM PACKET GT SCH ×3 (05:46→22:13)
[2023-05-16] MEDS: MINERAL OIL/PETROLAT OPHT OINT 3.5 GM TUBE EACHEYE SCH ×3 (05:46→22:13)
[2023-05-16 08:00] VITALS: TEMP 99.5
[2023-05-16] MEDS: LACOSAMIDE 100 MG/10 ML UDC GT SCH ×2 (08:09→20:21)
[2023-05-16] MEDS: PROTEIN SUPPLEMENT (PROSTAT) 30 ML LIQUID GT SCH ×2 (08:09→20:21)
[2023-05-16] MEDS: GEMFIBROZIL 600 MG TABLET GT SCH ×2 (08:09→17:41)
[2023-05-16] MEDS: CLOBAZAM 10 MG TABLET GT SCH ×2 (08:09→20:20)
[2023-05-16] MEDS: DOCUSATE SODIUM 100 MG/10 ML LIQUID UDC GT SCH ×2 (08:09→20:20)
[2023-05-16] MEDS: levETIRAcetam 500 MG/5 ML LIQUID UDC GT SCH ×2 (08:09→20:20)
[2023-05-16] MEDS: REMEDY ESSENTIAL ZINC PASTE 113 GM TOP SCH ×2 (08:09→20:22)
[2023-05-16] MEDS: HYDROGEN PEROXIDE 3% 118 ML BOTTLE TP SCH ×2 (09:25→20:57)
[2023-05-16 19:41] VITALS: TEMP 97.1
[2023-05-17] MEDS: IPRATROPIUM BROMIDE 0.5 MG/2.5 ML NEBU NEB SCH ×4 (01:03→19:15)
[2023-05-17] MEDS: ALBUTEROL SULFATE 1.25 MG/3 ML NEBU NEB SCH ×4 (01:03→19:15)
[2023-05-17] MEDS: POLYVINYL ALCOHOL OPHT DROPS 15 ML BOTTLE EACHEYE SCH ×6 (02:02→22:00)
[2023-05-17] MEDS: MINERAL OIL/PETROLAT OPHT OINT 3.5 GM TUBE EACHEYE SCH ×3 (05:50→22:00)
[2023-05-17] MEDS: NUTRISOURCE FIBER 4 GM PACKET GT SCH ×3 (05:50→22:00)
[2023-05-17 07:22] VITALS: TEMP 97.5
[2023-05-17] MEDS: HYDROGEN PEROXIDE 3% 118 ML BOTTLE TP SCH ×2 (08:28→21:33)
[2023-05-17] MEDS: DOCUSATE SODIUM 100 MG/10 ML LIQUID UDC GT SCH ×2 (08:43→21:32)
[2023-05-17] MEDS: levETIRAcetam 500 MG/5 ML LIQUID UDC GT SCH ×2 (08:45→21:34)
[2023-05-17] MEDS: GEMFIBROZIL 600 MG TABLET GT SCH ×2 (08:45→17:00)
[2023-05-17] MEDS: BISACODYL 10 MG SUPP.RECT RC SCH (08:46)
[2023-05-17] MEDS: CLOBAZAM 10 MG TABLET GT SCH ×2 (08:46→21:40)
[2023-05-17] MEDS: LACOSAMIDE 100 MG/10 ML UDC GT SCH ×2 (08:46→21:40)
[2023-05-17] MEDS: PROTEIN SUPPLEMENT (PROSTAT) 30 ML LIQUID GT SCH ×2 (08:46→21:40)
[2023-05-17] MEDS: REMEDY ESSENTIAL ZINC PASTE 113 GM TOP SCH ×2 (08:47→21:40)
[2023-05-17] MEDS: JEVITY 1.2 1000 ML LIQUID GT PRN (18:13)
[2023-05-17 20:02] VITALS: TEMP 97.4
[2023-05-18] MEDS: ALBUTEROL SULFATE 1.25 MG/3 ML NEBU NEB SCH ×4 (01:49→19:15)
[2023-05-18] MEDS: IPRATROPIUM BROMIDE 0.5 MG/2.5 ML NEBU NEB SCH ×4 (01:49→19:15)
[2023-05-18] MEDS: POLYVINYL ALCOHOL OPHT DROPS 15 ML BOTTLE EACHEYE SCH ×6 (02:00→22:40)
[2023-05-18] MEDS: NUTRISOURCE FIBER 4 GM PACKET GT SCH ×3 (05:04→22:40)
[2023-05-18] MEDS: MINERAL OIL/PETROLAT OPHT OINT 3.5 GM TUBE EACHEYE SCH ×3 (05:04→22:40)
[2023-05-18 08:00] VITALS: TEMP 98.2
[2023-05-18] MEDS: HYDROGEN PEROXIDE 3% 118 ML BOTTLE TP SCH ×2 (08:51→19:15)
[2023-05-18] MEDS: levETIRAcetam 500 MG/5 ML LIQUID UDC GT SCH ×2 (09:03→20:24)
[2023-05-18] MEDS: DOCUSATE SODIUM 100 MG/10 ML LIQUID UDC GT SCH ×2 (09:03→20:24)
[2023-05-18] MEDS: LACOSAMIDE 100 MG/10 ML UDC GT SCH ×2 (09:04→20:24)
[2023-05-18] MEDS: CLOBAZAM 10 MG TABLET GT SCH ×2 (09:04→20:24)
[2023-05-18] MEDS: PROTEIN SUPPLEMENT (PROSTAT) 30 ML LIQUID GT SCH ×2 (09:04→20:24)
[2023-05-18] MEDS: GEMFIBROZIL 600 MG TABLET GT SCH ×2 (09:04→17:05)
[2023-05-18] MEDS: REMEDY ESSENTIAL ZINC PASTE 113 GM TOP SCH ×2 (09:05→20:24)
[2023-05-18] MEDS: JEVITY 1.2 1000 ML LIQUID GT PRN (18:10)
[2023-05-18 19:55] VITALS: TEMP 98.1
[2023-05-19] MEDS: ALBUTEROL SULFATE 1.25 MG/3 ML NEBU NEB SCH ×4 (01:11→20:00)
[2023-05-19] MEDS: IPRATROPIUM BROMIDE 0.5 MG/2.5 ML NEBU NEB SCH ×4 (01:11→20:00)
[2023-05-19] MEDS: POLYVINYL ALCOHOL OPHT DROPS 15 ML BOTTLE EACHEYE SCH ×6 (02:00→22:02)
[2023-05-19] MEDS: NUTRISOURCE FIBER 4 GM PACKET GT SCH ×3 (06:16→22:03)
[2023-05-19] MEDS: MINERAL OIL/PETROLAT OPHT OINT 3.5 GM TUBE EACHEYE SCH ×3 (06:16→22:02)
[2023-05-19] MEDS: HYDROGEN PEROXIDE 3% 118 ML BOTTLE TP SCH ×2 (07:26→20:43)
[2023-05-19 07:54] VITALS: TEMP 97.6
[2023-05-19] MEDS: DOCUSATE SODIUM 100 MG/10 ML LIQUID UDC GT SCH ×2 (08:59→20:57)
[2023-05-19] MEDS: levETIRAcetam 500 MG/5 ML LIQUID UDC GT SCH ×2 (09:00→20:57)
[2023-05-19] MEDS: CLOBAZAM 10 MG TABLET GT SCH ×2 (09:01→20:57)
[2023-05-19] MEDS: PROTEIN SUPPLEMENT (PROSTAT) 30 ML LIQUID GT SCH ×2 (09:01→20:57)
[2023-05-19] MEDS: GEMFIBROZIL 600 MG TABLET GT SCH ×2 (09:01→17:09)
[2023-05-19] MEDS: REMEDY ESSENTIAL ZINC PASTE 113 GM TOP SCH ×2 (09:05→20:57)
[2023-05-19] MEDS: LACOSAMIDE 100 MG/10 ML UDC GT SCH ×2 (09:05→20:57)
[2023-05-19 19:41] VITALS: TEMP 98.2
[2023-05-20] MEDS: ALBUTEROL SULFATE 1.25 MG/3 ML NEBU NEB SCH ×4 (00:40→19:16)
[2023-05-20] MEDS: IPRATROPIUM BROMIDE 0.5 MG/2.5 ML NEBU NEB SCH ×4 (00:40→19:16)
[2023-05-20] MEDS: JEVITY 1.2 1000 ML LIQUID GT PRN (02:00)
[2023-05-20] MEDS: POLYVINYL ALCOHOL OPHT DROPS 15 ML BOTTLE EACHEYE SCH ×6 (02:05→21:23)
[2023-05-20] MEDS: MINERAL OIL/PETROLAT OPHT OINT 3.5 GM TUBE EACHEYE SCH ×3 (05:20→21:23)
[2023-05-20] MEDS: NUTRISOURCE FIBER 4 GM PACKET GT SCH ×3 (05:21→21:24)
[2023-05-20 08:00] VITALS: TEMP 97.4
[2023-05-20] MEDS: HYDROGEN PEROXIDE 3% 118 ML BOTTLE TP SCH ×2 (08:18→21:52)
[2023-05-20] MEDS: LACOSAMIDE 100 MG/10 ML UDC GT SCH ×2 (09:00→21:30)
[2023-05-20] MEDS: BISACODYL 10 MG SUPP.RECT RC SCH (09:00)
[2023-05-20] MEDS: CLOBAZAM 10 MG TABLET GT SCH ×2 (09:00→21:22)
[2023-05-20] MEDS: PROTEIN SUPPLEMENT (PROSTAT) 30 ML LIQUID GT SCH ×2 (09:00→21:22)
[2023-05-20] MEDS: REMEDY ESSENTIAL ZINC PASTE 113 GM TOP SCH ×2 (09:00→21:23)
[2023-05-20] MEDS: DOCUSATE SODIUM 100 MG/10 ML LIQUID UDC GT SCH ×2 (09:00→21:15)
[2023-05-20] MEDS: GEMFIBROZIL 600 MG TABLET GT SCH ×2 (09:00→16:24)
[2023-05-20] MEDS: levETIRAcetam 500 MG/5 ML LIQUID UDC GT SCH ×2 (09:00→21:16)
[2023-05-20 20:17] VITALS: TEMP 97.7
[2023-05-21] MEDS: ALBUTEROL SULFATE 1.25 MG/3 ML NEBU NEB SCH ×4 (01:32→19:14)
[2023-05-21] MEDS: IPRATROPIUM BROMIDE 0.5 MG/2.5 ML NEBU NEB SCH ×4 (01:32→19:14)
[2023-05-21] MEDS: POLYVINYL ALCOHOL OPHT DROPS 15 ML BOTTLE EACHEYE SCH ×6 (02:44→21:12)
[2023-05-21] MEDS: NUTRISOURCE FIBER 4 GM PACKET GT SCH ×3 (06:10→21:12)
[2023-05-21] MEDS: MINERAL OIL/PETROLAT OPHT OINT 3.5 GM TUBE EACHEYE SCH ×3 (06:10→21:12)
[2023-05-21 07:52] VITALS: TEMP 98.3
[2023-05-21] MEDS: HYDROGEN PEROXIDE 3% 118 ML BOTTLE TP SCH ×2 (09:42→21:03)
[2023-05-21] MEDS: DOCUSATE SODIUM 100 MG/10 ML LIQUID UDC GT SCH ×2 (09:45→21:12)
[2023-05-21] MEDS: GEMFIBROZIL 600 MG TABLET GT SCH ×2 (09:46→17:23)
[2023-05-21] MEDS: LACOSAMIDE 100 MG/10 ML UDC GT SCH ×2 (09:46→21:12)
[2023-05-21] MEDS: PROTEIN SUPPLEMENT (PROSTAT) 30 ML LIQUID GT SCH ×2 (09:46→21:12)
[2023-05-21] MEDS: REMEDY ESSENTIAL ZINC PASTE 113 GM TOP SCH ×2 (09:46→21:12)
[2023-05-21] MEDS: levETIRAcetam 500 MG/5 ML LIQUID UDC GT SCH ×2 (09:46→21:12)
[2023-05-21] MEDS: CLOBAZAM 10 MG TABLET GT SCH ×2 (09:46→21:12)
[2023-05-21] MEDS: JEVITY 1.2 1000 ML LIQUID GT PRN (13:54)
[2023-05-21 20:00] VITALS: TEMP 98
[2023-05-22] MEDS: IPRATROPIUM BROMIDE 0.5 MG/2.5 ML NEBU NEB SCH ×4 (01:35→20:17)
[2023-05-22] MEDS: ALBUTEROL SULFATE 1.25 MG/3 ML NEBU NEB SCH ×4 (01:35→20:17)
[2023-05-22] MEDS: JEVITY 1.2 1000 ML LIQUID GT PRN ×2 (02:30→17:52)
[2023-05-22] MEDS: POLYVINYL ALCOHOL OPHT DROPS 15 ML BOTTLE EACHEYE SCH ×6 (02:58→22:37)
[2023-05-22] MEDS: NUTRISOURCE FIBER 4 GM PACKET GT SCH ×3 (06:11→22:38)
[2023-05-22] MEDS: MINERAL OIL/PETROLAT OPHT OINT 3.5 GM TUBE EACHEYE SCH ×3 (06:11→22:37)
[2023-05-22 08:00] VITALS: TEMP 97.9
[2023-05-22] MEDS: HYDROGEN PEROXIDE 3% 118 ML BOTTLE TP SCH ×2 (09:24→20:17)
[2023-05-22] MEDS: DOCUSATE SODIUM 100 MG/10 ML LIQUID UDC GT SCH ×2 (09:36→21:00)
[2023-05-22] MEDS: PROTEIN SUPPLEMENT (PROSTAT) 30 ML LIQUID GT SCH ×2 (09:38→21:00)
[2023-05-22] MEDS: levETIRAcetam 500 MG/5 ML LIQUID UDC GT SCH ×2 (09:38→21:00)
[2023-05-22] MEDS: GEMFIBROZIL 600 MG TABLET GT SCH ×2 (09:40→17:51)
[2023-05-22] MEDS: CLOBAZAM 10 MG TABLET GT SCH ×2 (09:40→21:00)
[2023-05-22] MEDS: LACOSAMIDE 100 MG/10 ML UDC GT SCH ×2 (09:40→21:00)
[2023-05-22] MEDS: BISACODYL 10 MG SUPP.RECT RC SCH (09:40)
[2023-05-22] MEDS: REMEDY ESSENTIAL ZINC PASTE 113 GM TOP SCH ×2 (09:40→21:00)
[2023-05-22 20:00] VITALS: TEMP 98.1
[2023-05-23] MEDS: IPRATROPIUM BROMIDE 0.5 MG/2.5 ML NEBU NEB SCH ×4 (01:30→19:09)
[2023-05-23] MEDS: ALBUTEROL SULFATE 1.25 MG/3 ML NEBU NEB SCH ×4 (01:30→19:09)
[2023-05-23] MEDS: POLYVINYL ALCOHOL OPHT DROPS 15 ML BOTTLE EACHEYE SCH ×6 (02:48→21:21)
[2023-05-23] MEDS: MINERAL OIL/PETROLAT OPHT OINT 3.5 GM TUBE EACHEYE SCH ×3 (06:11→21:21)
[2023-05-23] MEDS: NUTRISOURCE FIBER 4 GM PACKET GT SCH ×3 (06:11→21:21)
[2023-05-23] MEDS: levETIRAcetam 500 MG/5 ML LIQUID UDC GT SCH ×2 (08:18→21:20)
[2023-05-23] MEDS: DOCUSATE SODIUM 100 MG/10 ML LIQUID UDC GT SCH ×2 (08:18→21:20)
[2023-05-23] MEDS: REMEDY ESSENTIAL ZINC PASTE 113 GM TOP SCH ×2 (08:25→21:21)
[2023-05-23] MEDS: PROTEIN SUPPLEMENT (PROSTAT) 30 ML LIQUID GT SCH ×2 (08:25→21:20)
[2023-05-23] MEDS: GEMFIBROZIL 600 MG TABLET GT SCH ×2 (08:25→16:00)
[2023-05-23] MEDS: CLOBAZAM 10 MG TABLET GT SCH ×2 (08:25→21:20)
[2023-05-23] MEDS: LACOSAMIDE 100 MG/10 ML UDC GT SCH ×2 (08:25→21:20)
[2023-05-23] MEDS: HYDROGEN PEROXIDE 3% 118 ML BOTTLE TP SCH ×2 (09:00→21:08)
[2023-05-23 14:51] VITALS: TEMP 97.9
[2023-05-23 22:44] VITALS: TEMP 97
[2023-05-24] MEDS: IPRATROPIUM BROMIDE 0.5 MG/2.5 ML NEBU NEB SCH ×4 (01:03→19:24)
[2023-05-24] MEDS: ALBUTEROL SULFATE 1.25 MG/3 ML NEBU NEB SCH ×4 (01:03→19:24)
[2023-05-24] MEDS: POLYVINYL ALCOHOL OPHT DROPS 15 ML BOTTLE EACHEYE SCH ×6 (02:42→22:33)
[2023-05-24] MEDS: NUTRISOURCE FIBER 4 GM PACKET GT SCH ×3 (06:05→22:33)
[2023-05-24] MEDS: MINERAL OIL/PETROLAT OPHT OINT 3.5 GM TUBE EACHEYE SCH ×3 (06:05→22:33)
[2023-05-24] MEDS: HYDROGEN PEROXIDE 3% 118 ML BOTTLE TP SCH ×2 (07:22→19:24)
[2023-05-24 08:00] VITALS: TEMP 96.2
[2023-05-24 08:10] VITALS: TEMP 97.6
[2023-05-24] MEDS: DOCUSATE SODIUM 100 MG/10 ML LIQUID UDC GT SCH ×2 (08:32→20:21)
[2023-05-24] MEDS: levETIRAcetam 500 MG/5 ML LIQUID UDC GT SCH ×2 (08:33→20:21)
[2023-05-24] MEDS: GEMFIBROZIL 600 MG TABLET GT SCH ×2 (08:34→17:05)
[2023-05-24] MEDS: CLOBAZAM 10 MG TABLET GT SCH ×2 (08:44→21:00)
[2023-05-24] MEDS: PROTEIN SUPPLEMENT (PROSTAT) 30 ML LIQUID GT SCH ×2 (08:45→20:21)
[2023-05-24] MEDS: LACOSAMIDE 100 MG/10 ML UDC GT SCH ×2 (08:53→21:00)
[2023-05-24] MEDS: BISACODYL 10 MG SUPP.RECT RC SCH (08:54)
[2023-05-24] MEDS: REMEDY ESSENTIAL ZINC PASTE 113 GM TOP SCH ×2 (08:54→20:21)
[2023-05-24 20:00] VITALS: TEMP 98.1
[2023-05-25] MEDS: ALBUTEROL SULFATE 1.25 MG/3 ML NEBU NEB SCH ×4 (01:12→19:04)
[2023-05-25] MEDS: IPRATROPIUM BROMIDE 0.5 MG/2.5 ML NEBU NEB SCH ×4 (01:12→19:04)
[2023-05-25] MEDS: POLYVINYL ALCOHOL OPHT DROPS 15 ML BOTTLE EACHEYE SCH ×6 (02:06→22:18)
[2023-05-25] MEDS: MINERAL OIL/PETROLAT OPHT OINT 3.5 GM TUBE EACHEYE SCH ×3 (06:00→22:18)
[2023-05-25] MEDS: NUTRISOURCE FIBER 4 GM PACKET GT SCH ×3 (06:00→22:18)
[2023-05-25 08:12] VITALS: TEMP 97.5
[2023-05-25] MEDS: DOCUSATE SODIUM 100 MG/10 ML LIQUID UDC GT SCH ×2 (08:28→20:17)
[2023-05-25] MEDS: GEMFIBROZIL 600 MG TABLET GT SCH ×2 (08:30→17:10)
[2023-05-25] MEDS: levETIRAcetam 500 MG/5 ML LIQUID UDC GT SCH ×2 (08:30→20:17)
[2023-05-25] MEDS: REMEDY ESSENTIAL ZINC PASTE 113 GM TOP SCH ×2 (08:31→20:17)
[2023-05-25] MEDS: PROTEIN SUPPLEMENT (PROSTAT) 30 ML LIQUID GT SCH ×2 (08:31→20:17)
[2023-05-25] MEDS: CLOBAZAM 10 MG TABLET GT SCH ×2 (08:42→20:19)
[2023-05-25] MEDS: LACOSAMIDE 100 MG/10 ML UDC GT SCH ×2 (08:42→20:19)
[2023-05-25] MEDS: HYDROGEN PEROXIDE 3% 118 ML BOTTLE TP SCH ×2 (09:33→21:14)
[2023-05-25 20:00] VITALS: TEMP 97.6
[2023-05-26] MEDS: ALBUTEROL SULFATE 1.25 MG/3 ML NEBU NEB SCH ×4 (01:02→19:25)
[2023-05-26] MEDS: IPRATROPIUM BROMIDE 0.5 MG/2.5 ML NEBU NEB SCH ×4 (01:02→19:25)
[2023-05-26] MEDS: POLYVINYL ALCOHOL OPHT DROPS 15 ML BOTTLE EACHEYE SCH ×6 (02:00→22:04)
[2023-05-26] MEDS: MINERAL OIL/PETROLAT OPHT OINT 3.5 GM TUBE EACHEYE SCH ×3 (06:13→22:04)
[2023-05-26] MEDS: NUTRISOURCE FIBER 4 GM PACKET GT SCH ×3 (06:13→22:04)
[2023-05-26 08:00] VITALS: TEMP 97.8
[2023-05-26] MEDS: HYDROGEN PEROXIDE 3% 118 ML BOTTLE TP SCH ×2 (08:15→19:25)
[2023-05-26] MEDS: DOCUSATE SODIUM 100 MG/10 ML LIQUID UDC GT SCH ×2 (08:29→20:29)
[2023-05-26] MEDS: PROTEIN SUPPLEMENT (PROSTAT) 30 ML LIQUID GT SCH ×2 (08:29→20:30)
[2023-05-26] MEDS: levETIRAcetam 500 MG/5 ML LIQUID UDC GT SCH ×2 (08:29→20:29)
[2023-05-26] MEDS: GEMFIBROZIL 600 MG TABLET GT SCH ×2 (08:29→16:12)
[2023-05-26] MEDS: REMEDY ESSENTIAL ZINC PASTE 113 GM TOP SCH ×2 (08:53→20:30)
[2023-05-26] MEDS: LACOSAMIDE 100 MG/10 ML UDC GT SCH ×2 (08:53→20:30)
[2023-05-26] MEDS: CLOBAZAM 10 MG TABLET GT SCH ×2 (08:53→20:30)
[2023-05-26 19:46] VITALS: TEMP 97.3
[2023-05-27] MEDS: IPRATROPIUM BROMIDE 0.5 MG/2.5 ML NEBU NEB SCH ×4 (00:40→19:10)
[2023-05-27] MEDS: ALBUTEROL SULFATE 1.25 MG/3 ML NEBU NEB SCH ×4 (00:40→19:10)
[2023-05-27] MEDS: POLYVINYL ALCOHOL OPHT DROPS 15 ML BOTTLE EACHEYE SCH ×6 (02:05→22:15)
[2023-05-27] MEDS: NUTRISOURCE FIBER 4 GM PACKET GT SCH ×3 (06:00→22:15)
[2023-05-27] MEDS: MINERAL OIL/PETROLAT OPHT OINT 3.5 GM TUBE EACHEYE SCH ×3 (06:14→22:15)
[2023-05-27 07:19] VITALS: TEMP 98.7
[2023-05-27] MEDS: levETIRAcetam 500 MG/5 ML LIQUID UDC GT SCH ×2 (08:52→20:26)
[2023-05-27] MEDS: DOCUSATE SODIUM 100 MG/10 ML LIQUID UDC GT SCH ×2 (08:52→20:26)
[2023-05-27] MEDS: REMEDY ESSENTIAL ZINC PASTE 113 GM TOP SCH ×2 (08:53→20:26)
[2023-05-27] MEDS: PROTEIN SUPPLEMENT (PROSTAT) 30 ML LIQUID GT SCH ×2 (08:53→20:26)
[2023-05-27] MEDS: CLOBAZAM 10 MG TABLET GT SCH ×2 (08:53→20:23)
[2023-05-27] MEDS: GEMFIBROZIL 600 MG TABLET GT SCH ×2 (08:53→17:18)
[2023-05-27] MEDS: BISACODYL 10 MG SUPP.RECT RC SCH (08:53)
[2023-05-27] MEDS: LACOSAMIDE 100 MG/10 ML UDC GT SCH ×2 (08:53→20:23)
[2023-05-27 09:10] LABS: BASOPHILS % (AUTO) 0.5 % (0.0-2.0); EOSINOPHILS # (AUTO) 0.2 K/uL (0.0-0.7); EOSINOPHILS % (AUTO) 2.9 % (0.0-7.0); HEMATOCRIT 39.4 % (36.7-47.1); HEMOGLOBIN 13.4 g/dL (12.5-16.3); LYMPHOCYTES # (AUTO) 1.8 K/uL (0.8-4.8); MEAN CORPUSCULAR HEMOGLOBIN 31.9 uug (23.8-33.4); MEAN CORPUSCULAR HGB CONC 34 g/dL (32.5-36.3); MEAN CORPUSCULAR VOLUME 93.8 fL (73.0-96.2); MONOCYTES # (AUTO) 0.5 K/uL (0.1-1.30); MONOCYTES % (AUTO) 6.7 % (0.0-11.0); NEUTROPHILS # (AUTO) 4.4 K/uL (1.8-8.9); NEUTROPHILS % (AUTO) 63.9 % (38.5-71.5); PLATELET COUNT (AUTO) 257 K/uL (152-348); RED CELL DISTRIBUTION WIDTH 15.7 % (12.1-16.2); WHITE BLOOD COUNT (AUTO) 6.8 K/uL (3.6-10.2)
[2023-05-27 09:14] LABS: DIFFERENTIAL COMMENT 1
[2023-05-27 09:22] LABS: ALBUMIN 3.6 g/dL (3.4-5.0); BILIRUBIN,TOTAL 0.6 mg/dL (0.2-1.0); CALCIUM 9.7 mg/dL (8.5-10.1); CREATININE 0.8 mg/dL (0.6-1.3); MAGNESIUM 2.3 mg/dL (1.8-2.4); PHOSPHOROUS 3.4 mg/dL (2.5-4.9); POTASSIUM 3.6 mmol/L (3.5-5.1); TOTAL PROTEIN, SERUM 8.5 g/dL (6.4-8.2)
[2023-05-27] MEDS: HYDROGEN PEROXIDE 3% 118 ML BOTTLE TP SCH ×2 (09:42→19:11)
[2023-05-27 20:49] VITALS: TEMP 98.6
[2023-05-28] MEDS: ALBUTEROL SULFATE 1.25 MG/3 ML NEBU NEB SCH ×4 (01:12→19:19)
[2023-05-28] MEDS: IPRATROPIUM BROMIDE 0.5 MG/2.5 ML NEBU NEB SCH ×4 (01:12→19:19)
[2023-05-28] MEDS: POLYVINYL ALCOHOL OPHT DROPS 15 ML BOTTLE EACHEYE SCH ×6 (02:00→21:16)
[2023-05-28] MEDS: NUTRISOURCE FIBER 4 GM PACKET GT SCH ×3 (06:42→21:16)
[2023-05-28] MEDS: MINERAL OIL/PETROLAT OPHT OINT 3.5 GM TUBE EACHEYE SCH ×3 (06:42→21:16)
[2023-05-28] MEDS: HYDROGEN PEROXIDE 3% 118 ML BOTTLE TP SCH ×2 (07:19→19:19)
[2023-05-28 08:00] VITALS: TEMP 98
[2023-05-28] MEDS: DOCUSATE SODIUM 100 MG/10 ML LIQUID UDC GT SCH ×2 (09:22→21:16)
[2023-05-28] MEDS: REMEDY ESSENTIAL ZINC PASTE 113 GM TOP SCH ×2 (09:22→21:16)
[2023-05-28] MEDS: LACOSAMIDE 100 MG/10 ML UDC GT SCH ×2 (09:22→21:16)
[2023-05-28] MEDS: CLOBAZAM 10 MG TABLET GT SCH ×2 (09:22→21:16)
[2023-05-28] MEDS: levETIRAcetam 500 MG/5 ML LIQUID UDC GT SCH ×2 (09:22→21:16)
[2023-05-28] MEDS: PROTEIN SUPPLEMENT (PROSTAT) 30 ML LIQUID GT SCH ×2 (09:22→21:16)
[2023-05-28] MEDS: GEMFIBROZIL 600 MG TABLET GT SCH ×2 (09:22→17:44)
[2023-05-28] MEDS: JEVITY 1.2 1000 ML LIQUID GT PRN (17:49)
[2023-05-28 19:51] VITALS: TEMP 98.4
[2023-05-29] MEDS: IPRATROPIUM BROMIDE 0.5 MG/2.5 ML NEBU NEB SCH ×4 (01:00→19:15)
[2023-05-29] MEDS: ALBUTEROL SULFATE 1.25 MG/3 ML NEBU NEB SCH ×4 (01:00→19:15)
[2023-05-29] MEDS: POLYVINYL ALCOHOL OPHT DROPS 15 ML BOTTLE EACHEYE SCH ×6 (02:00→22:04)
[2023-05-29] MEDS: MINERAL OIL/PETROLAT OPHT OINT 3.5 GM TUBE EACHEYE SCH ×3 (05:35→22:04)
[2023-05-29] MEDS: NUTRISOURCE FIBER 4 GM PACKET GT SCH ×3 (05:35→22:04)
[2023-05-29 08:00] VITALS: TEMP 97.6
[2023-05-29 08:01] VITALS: O2SAT 99
[2023-05-29] MEDS: DOCUSATE SODIUM 100 MG/10 ML LIQUID UDC GT SCH ×2 (08:36→20:28)
[2023-05-29] MEDS: levETIRAcetam 500 MG/5 ML LIQUID UDC GT SCH ×2 (08:38→20:28)
[2023-05-29] MEDS: GEMFIBROZIL 600 MG TABLET GT SCH ×2 (08:44→17:26)
[2023-05-29] MEDS: CLOBAZAM 10 MG TABLET GT SCH ×2 (08:45→20:28)
[2023-05-29] MEDS: LACOSAMIDE 100 MG/10 ML UDC GT SCH ×2 (08:45→20:28)
[2023-05-29] MEDS: PROTEIN SUPPLEMENT (PROSTAT) 30 ML LIQUID GT SCH ×2 (08:46→20:28)
[2023-05-29] MEDS: REMEDY ESSENTIAL ZINC PASTE 113 GM TOP SCH ×2 (08:47→20:28)
[2023-05-29] MEDS: BISACODYL 10 MG SUPP.RECT RC SCH (08:47)
[2023-05-29] MEDS: HYDROGEN PEROXIDE 3% 118 ML BOTTLE TP SCH ×2 (09:00→19:15)
[2023-05-29 20:00] VITALS: TEMP 98.1
[2023-05-29] MEDS: JEVITY 1.2 1000 ML LIQUID GT PRN (20:54)
[2023-05-30] MEDS: IPRATROPIUM BROMIDE 0.5 MG/2.5 ML NEBU NEB SCH ×4 (01:18→19:02)
[2023-05-30] MEDS: ALBUTEROL SULFATE 1.25 MG/3 ML NEBU NEB SCH ×4 (01:18→19:02)
[2023-05-30] MEDS: POLYVINYL ALCOHOL OPHT DROPS 15 ML BOTTLE EACHEYE SCH ×6 (02:00→21:56)
[2023-05-30] MEDS: NUTRISOURCE FIBER 4 GM PACKET GT SCH ×3 (05:37→21:56)
[2023-05-30] MEDS: MINERAL OIL/PETROLAT OPHT OINT 3.5 GM TUBE EACHEYE SCH ×3 (05:37→21:56)
[2023-05-30 08:00] VITALS: TEMP 97.6
[2023-05-30] MEDS: DOCUSATE SODIUM 100 MG/10 ML LIQUID UDC GT SCH ×2 (08:52→20:46)
[2023-05-30] MEDS: levETIRAcetam 500 MG/5 ML LIQUID UDC GT SCH ×2 (08:53→20:46)
[2023-05-30] MEDS: GEMFIBROZIL 600 MG TABLET GT SCH ×2 (08:54→17:57)
[2023-05-30] MEDS: LACOSAMIDE 100 MG/10 ML UDC GT SCH ×2 (08:55→20:47)
[2023-05-30] MEDS: CLOBAZAM 10 MG TABLET GT SCH ×2 (08:55→20:46)
[2023-05-30] MEDS: PROTEIN SUPPLEMENT (PROSTAT) 30 ML LIQUID GT SCH ×2 (08:56→20:47)
[2023-05-30] MEDS: REMEDY ESSENTIAL ZINC PASTE 113 GM TOP SCH ×2 (08:56→20:47)
[2023-05-30] MEDS: HYDROGEN PEROXIDE 3% 118 ML BOTTLE TP SCH ×2 (09:48→21:58)
[2023-05-30 19:52] VITALS: TEMP 97.6
[2023-05-31] MEDS: IPRATROPIUM BROMIDE 0.5 MG/2.5 ML NEBU NEB SCH ×4 (01:13→19:10)
[2023-05-31] MEDS: ALBUTEROL SULFATE 1.25 MG/3 ML NEBU NEB SCH ×4 (01:13→19:10)
[2023-05-31] MEDS: POLYVINYL ALCOHOL OPHT DROPS 15 ML BOTTLE EACHEYE SCH ×6 (02:00→22:10)
[2023-05-31] MEDS: NUTRISOURCE FIBER 4 GM PACKET GT SCH ×3 (05:01→22:10)
[2023-05-31] MEDS: MINERAL OIL/PETROLAT OPHT OINT 3.5 GM TUBE EACHEYE SCH ×3 (05:01→22:10)
[2023-05-31] MEDS: JEVITY 1.2 1000 ML LIQUID GT PRN (05:01)
[2023-05-31 08:00] VITALS: TEMP 97.5
[2023-05-31] MEDS: CLOBAZAM 10 MG TABLET GT SCH ×2 (08:06→21:30)
[2023-05-31] MEDS: levETIRAcetam 500 MG/5 ML LIQUID UDC GT SCH ×2 (08:06→21:00)
[2023-05-31] MEDS: DOCUSATE SODIUM 100 MG/10 ML LIQUID UDC GT SCH ×2 (08:06→21:00)
[2023-05-31] MEDS: PROTEIN SUPPLEMENT (PROSTAT) 30 ML LIQUID GT SCH ×2 (08:06→21:00)
[2023-05-31] MEDS: GEMFIBROZIL 600 MG TABLET GT SCH ×2 (08:06→16:46)
[2023-05-31] MEDS: LACOSAMIDE 100 MG/10 ML UDC GT SCH ×2 (08:06→21:30)
[2023-05-31] MEDS: BISACODYL 10 MG SUPP.RECT RC SCH (08:07)
[2023-05-31] MEDS: REMEDY ESSENTIAL ZINC PASTE 113 GM TOP SCH ×2 (08:07→21:00)
[2023-05-31] MEDS: HYDROGEN PEROXIDE 3% 118 ML BOTTLE TP SCH ×2 (09:00→19:10)
[2023-05-31 20:00] VITALS: TEMP 98.8
[2023-06-01] MEDS: ALBUTEROL SULFATE 1.25 MG/3 ML NEBU NEB SCH ×4 (01:56→21:11)
[2023-06-01] MEDS: IPRATROPIUM BROMIDE 0.5 MG/2.5 ML NEBU NEB SCH ×4 (01:56→21:11)
[2023-06-01] MEDS: POLYVINYL ALCOHOL OPHT DROPS 15 ML BOTTLE EACHEYE SCH ×6 (02:00→21:09)
[2023-06-01] MEDS: MINERAL OIL/PETROLAT OPHT OINT 3.5 GM TUBE EACHEYE SCH ×3 (05:55→21:09)
[2023-06-01] MEDS: NUTRISOURCE FIBER 4 GM PACKET GT SCH ×3 (05:55→21:09)
[2023-06-01] MEDS: HYDROGEN PEROXIDE 3% 118 ML BOTTLE TP SCH ×2 (07:31→21:00)
[2023-06-01 08:25] VITALS: TEMP 98.9
[2023-06-01] MEDS: REMEDY ESSENTIAL ZINC PASTE 113 GM TOP SCH ×2 (09:45→20:46)
[2023-06-01] MEDS: GEMFIBROZIL 600 MG TABLET GT SCH ×2 (09:45→16:55)
[2023-06-01] MEDS: DOCUSATE SODIUM 100 MG/10 ML LIQUID UDC GT SCH ×2 (09:45→20:46)
[2023-06-01] MEDS: LACOSAMIDE 100 MG/10 ML UDC GT SCH ×2 (09:45→21:09)
[2023-06-01] MEDS: CLOBAZAM 10 MG TABLET GT SCH ×2 (09:45→21:09)
[2023-06-01] MEDS: levETIRAcetam 500 MG/5 ML LIQUID UDC GT SCH ×2 (09:45→20:53)
[2023-06-01] MEDS: PROTEIN SUPPLEMENT (PROSTAT) 30 ML LIQUID GT SCH ×2 (09:45→20:46)
[2023-06-01 20:00] VITALS: TEMP 97.8
[2023-06-02] MEDS: IPRATROPIUM BROMIDE 0.5 MG/2.5 ML NEBU NEB SCH ×4 (01:29→19:18)
[2023-06-02] MEDS: ALBUTEROL SULFATE 1.25 MG/3 ML NEBU NEB SCH ×4 (01:30→19:18)
[2023-06-02] MEDS: POLYVINYL ALCOHOL OPHT DROPS 15 ML BOTTLE EACHEYE SCH ×6 (02:00→22:31)
[2023-06-02] MEDS: JEVITY 1.2 1000 ML LIQUID GT PRN (03:10)
[2023-06-02] MEDS: MINERAL OIL/PETROLAT OPHT OINT 3.5 GM TUBE EACHEYE SCH ×3 (05:34→22:31)
[2023-06-02] MEDS: NUTRISOURCE FIBER 4 GM PACKET GT SCH ×3 (05:34→22:31)
[2023-06-02 07:48] VITALS: TEMP 97.5
[2023-06-02] MEDS: DOCUSATE SODIUM 100 MG/10 ML LIQUID UDC GT SCH ×2 (08:30→20:00)
[2023-06-02] MEDS: REMEDY ESSENTIAL ZINC PASTE 113 GM TOP SCH ×2 (08:31→20:00)
[2023-06-02] MEDS: PROTEIN SUPPLEMENT (PROSTAT) 30 ML LIQUID GT SCH ×2 (08:31→20:00)
[2023-06-02] MEDS: levETIRAcetam 500 MG/5 ML LIQUID UDC GT SCH ×2 (08:31→20:00)
[2023-06-02] MEDS: GEMFIBROZIL 600 MG TABLET GT SCH ×2 (08:31→17:42)
[2023-06-02] MEDS: LACOSAMIDE 100 MG/10 ML UDC GT SCH ×2 (08:31→20:00)
[2023-06-02] MEDS: CLOBAZAM 10 MG TABLET GT SCH ×2 (08:31→20:00)
[2023-06-02] MEDS: HYDROGEN PEROXIDE 3% 118 ML BOTTLE TP SCH ×2 (09:00→20:46)
[2023-06-02 20:00] VITALS: TEMP 99.3
[2023-06-03] MEDS: ALBUTEROL SULFATE 1.25 MG/3 ML NEBU NEB SCH ×4 (00:33→19:11)
[2023-06-03] MEDS: IPRATROPIUM BROMIDE 0.5 MG/2.5 ML NEBU NEB SCH ×4 (00:33→19:11)
[2023-06-03] MEDS: JEVITY 1.2 1000 ML LIQUID GT PRN (02:09)
[2023-06-03] MEDS: POLYVINYL ALCOHOL OPHT DROPS 15 ML BOTTLE EACHEYE SCH ×6 (02:09→21:31)
[2023-06-03] MEDS: NUTRISOURCE FIBER 4 GM PACKET GT SCH ×3 (05:06→21:31)
[2023-06-03] MEDS: MINERAL OIL/PETROLAT OPHT OINT 3.5 GM TUBE EACHEYE SCH ×3 (05:06→21:31)
[2023-06-03 08:00] VITALS: TEMP 97.9
[2023-06-03] MEDS: HYDROGEN PEROXIDE 3% 118 ML BOTTLE TP SCH ×2 (08:52→19:11)
[2023-06-03] MEDS: levETIRAcetam 500 MG/5 ML LIQUID UDC GT SCH ×2 (09:36→21:30)
[2023-06-03] MEDS: DOCUSATE SODIUM 100 MG/10 ML LIQUID UDC GT SCH ×2 (09:36→21:30)
[2023-06-03] MEDS: REMEDY ESSENTIAL ZINC PASTE 113 GM TOP SCH ×2 (09:37→21:31)
[2023-06-03] MEDS: GEMFIBROZIL 600 MG TABLET GT SCH ×2 (09:37→17:48)
[2023-06-03] MEDS: PROTEIN SUPPLEMENT (PROSTAT) 30 ML LIQUID GT SCH ×2 (09:37→21:30)
[2023-06-03] MEDS: LACOSAMIDE 100 MG/10 ML UDC GT SCH ×2 (09:37→21:30)
[2023-06-03] MEDS: BISACODYL 10 MG SUPP.RECT RC SCH (09:37)
[2023-06-03] MEDS: CLOBAZAM 10 MG TABLET GT SCH ×2 (09:37→21:30)
[2023-06-03 19:31] VITALS: TEMP 98
[2023-06-04] MEDS: ALBUTEROL SULFATE 1.25 MG/3 ML NEBU NEB SCH ×4 (00:41→19:32)
[2023-06-04] MEDS: IPRATROPIUM BROMIDE 0.5 MG/2.5 ML NEBU NEB SCH ×4 (00:41→19:31)
[2023-06-04] MEDS: POLYVINYL ALCOHOL OPHT DROPS 15 ML BOTTLE EACHEYE SCH ×6 (02:00→22:20)
[2023-06-04] MEDS: NUTRISOURCE FIBER 4 GM PACKET GT SCH ×3 (05:45→22:20)
[2023-06-04] MEDS: MINERAL OIL/PETROLAT OPHT OINT 3.5 GM TUBE EACHEYE SCH ×3 (05:45→22:20)
[2023-06-04] MEDS: HYDROGEN PEROXIDE 3% 118 ML BOTTLE TP SCH ×2 (07:36→21:00)
[2023-06-04 08:00] VITALS: TEMP 98
[2023-06-04] MEDS: REMEDY ESSENTIAL ZINC PASTE 113 GM TOP SCH ×2 (09:30→20:15)
[2023-06-04] MEDS: PROTEIN SUPPLEMENT (PROSTAT) 30 ML LIQUID GT SCH ×2 (09:30→20:13)
[2023-06-04] MEDS: DOCUSATE SODIUM 100 MG/10 ML LIQUID UDC GT SCH ×2 (09:57→20:11)
[2023-06-04] MEDS: levETIRAcetam 500 MG/5 ML LIQUID UDC GT SCH ×2 (09:58→20:12)
[2023-06-04] MEDS: LACOSAMIDE 100 MG/10 ML UDC GT SCH ×2 (10:00→20:14)
[2023-06-04] MEDS: CLOBAZAM 10 MG TABLET GT SCH ×2 (10:00→20:13)
[2023-06-04] MEDS: GEMFIBROZIL 600 MG TABLET GT SCH ×2 (10:00→17:38)
[2023-06-04] MEDS ORDERED: COVID-19 VACC, SPIKEVAX (PHA) 50 MCG/0.5 ML VIAL IM ONE ×2 (13:45→14:00)
[2023-06-04 19:41] VITALS: TEMP 98.1
[2023-06-05] VITALS: TEMP 98
[2023-06-05] MEDS: ALBUTEROL SULFATE 1.25 MG/3 ML NEBU NEB SCH ×4 (00:35→19:10)
[2023-06-05] MEDS: IPRATROPIUM BROMIDE 0.5 MG/2.5 ML NEBU NEB SCH ×4 (00:35→19:10)
[2023-06-05] MEDS: POLYVINYL ALCOHOL OPHT DROPS 15 ML BOTTLE EACHEYE SCH ×6 (02:00→22:11)
[2023-06-05 04:00] VITALS: TEMP 98.1
[2023-06-05] MEDS: MINERAL OIL/PETROLAT OPHT OINT 3.5 GM TUBE EACHEYE SCH ×3 (05:33→22:11)
[2023-06-05] MEDS: NUTRISOURCE FIBER 4 GM PACKET GT SCH ×3 (05:33→22:11)
[2023-06-05 08:00] VITALS: TEMP 97.8
[2023-06-05] MEDS: DOCUSATE SODIUM 100 MG/10 ML LIQUID UDC GT SCH ×2 (08:22→20:22)
[2023-06-05] MEDS: levETIRAcetam 500 MG/5 ML LIQUID UDC GT SCH ×2 (08:23→20:22)
[2023-06-05] MEDS: LACOSAMIDE 100 MG/10 ML UDC GT SCH ×2 (08:24→20:22)
[2023-06-05] MEDS: BISACODYL 10 MG SUPP.RECT RC SCH (08:24)
[2023-06-05] MEDS: REMEDY ESSENTIAL ZINC PASTE 113 GM TOP SCH ×2 (08:24→20:22)
[2023-06-05] MEDS: GEMFIBROZIL 600 MG TABLET GT SCH ×2 (08:24→17:00)
[2023-06-05] MEDS: PROTEIN SUPPLEMENT (PROSTAT) 30 ML LIQUID GT SCH ×2 (08:24→20:22)
[2023-06-05] MEDS: CLOBAZAM 10 MG TABLET GT SCH ×2 (08:24→20:22)
[2023-06-05] MEDS: HYDROGEN PEROXIDE 3% 118 ML BOTTLE TP SCH ×2 (08:28→20:48)
[2023-06-05 11:46] VITALS: TEMP 97.6
[2023-06-05 16:12] VITALS: TEMP 99.8
[2023-06-05 19:57] VITALS: TEMP 98
[2023-06-06] VITALS: TEMP 97.7
[2023-06-06] MEDS: ALBUTEROL SULFATE 1.25 MG/3 ML NEBU NEB SCH ×4 (01:03→19:31)
[2023-06-06] MEDS: IPRATROPIUM BROMIDE 0.5 MG/2.5 ML NEBU NEB SCH ×4 (01:03→19:31)
[2023-06-06] MEDS: POLYVINYL ALCOHOL OPHT DROPS 15 ML BOTTLE EACHEYE SCH ×6 (02:00→22:00)
[2023-06-06 04:00] VITALS: TEMP 98.1
[2023-06-06] MEDS: MINERAL OIL/PETROLAT OPHT OINT 3.5 GM TUBE EACHEYE SCH ×3 (05:36→22:00)
[2023-06-06] MEDS: NUTRISOURCE FIBER 4 GM PACKET GT SCH ×3 (05:37→22:00)
[2023-06-06] MEDS: JEVITY 1.2 1000 ML LIQUID GT PRN (06:24)
[2023-06-06 07:46] VITALS: TEMP 97.6
[2023-06-06] MEDS: DOCUSATE SODIUM 100 MG/10 ML LIQUID UDC GT SCH ×2 (08:13→20:27)
[2023-06-06] MEDS: levETIRAcetam 500 MG/5 ML LIQUID UDC GT SCH ×2 (08:14→20:31)
[2023-06-06] MEDS: LACOSAMIDE 100 MG/10 ML UDC GT SCH ×2 (08:16→20:38)
[2023-06-06] MEDS: GEMFIBROZIL 600 MG TABLET GT SCH ×2 (08:16→17:39)
[2023-06-06] MEDS: PROTEIN SUPPLEMENT (PROSTAT) 30 ML LIQUID GT SCH ×2 (08:16→20:37)
[2023-06-06] MEDS: REMEDY ESSENTIAL ZINC PASTE 113 GM TOP SCH ×2 (08:16→20:38)
[2023-06-06] MEDS: CLOBAZAM 10 MG TABLET GT SCH ×2 (08:16→20:37)
[2023-06-06] MEDS: HYDROGEN PEROXIDE 3% 118 ML BOTTLE TP SCH ×2 (09:00→19:31)
[2023-06-06 12:11] VITALS: TEMP 97
[2023-06-06 16:16] VITALS: TEMP 97
[2023-06-06 20:00] VITALS: TEMP 97.7
[2023-06-07] VITALS: TEMP 97.7
[2023-06-07] MEDS: IPRATROPIUM BROMIDE 0.5 MG/2.5 ML NEBU NEB SCH ×4 (01:27→19:50)
[2023-06-07] MEDS: ALBUTEROL SULFATE 1.25 MG/3 ML NEBU NEB SCH ×4 (01:27→19:50)
[2023-06-07] MEDS: POLYVINYL ALCOHOL OPHT DROPS 15 ML BOTTLE EACHEYE SCH ×6 (02:00→22:02)
[2023-06-07 04:00] VITALS: TEMP 97.8
[2023-06-07] MEDS: NUTRISOURCE FIBER 4 GM PACKET GT SCH ×3 (05:08→22:02)
[2023-06-07] MEDS: MINERAL OIL/PETROLAT OPHT OINT 3.5 GM TUBE EACHEYE SCH ×3 (05:08→22:02)
[2023-06-07] MEDS: JEVITY 1.2 1000 ML LIQUID GT PRN (06:00)
[2023-06-07] MEDS: HYDROGEN PEROXIDE 3% 118 ML BOTTLE TP SCH ×2 (07:31→21:43)
[2023-06-07 07:58] VITALS: TEMP 97
[2023-06-07] MEDS: DOCUSATE SODIUM 100 MG/10 ML LIQUID UDC GT SCH ×2 (08:08→21:59)
[2023-06-07] MEDS: GEMFIBROZIL 600 MG TABLET GT SCH ×2 (08:09→16:58)
[2023-06-07] MEDS: levETIRAcetam 500 MG/5 ML LIQUID UDC GT SCH ×2 (08:09→21:00)
[2023-06-07] MEDS: LACOSAMIDE 100 MG/10 ML UDC GT SCH ×2 (08:10→22:00)
[2023-06-07] MEDS: BISACODYL 10 MG SUPP.RECT RC SCH (08:10)
[2023-06-07] MEDS: CLOBAZAM 10 MG TABLET GT SCH ×2 (08:10→22:00)
[2023-06-07] MEDS: PROTEIN SUPPLEMENT (PROSTAT) 30 ML LIQUID GT SCH ×2 (08:10→21:00)
[2023-06-07] MEDS: REMEDY ESSENTIAL ZINC PASTE 113 GM TOP SCH ×2 (08:10→21:00)
[2023-06-07 15:35] VITALS: TEMP 97.5
[2023-06-07 17:59] VITALS: TEMP 97.4
[2023-06-07 20:27] VITALS: TEMP 97.2
[2023-06-08] MEDS: IPRATROPIUM BROMIDE 0.5 MG/2.5 ML NEBU NEB SCH ×5 (01:36→19:40)
[2023-06-08] MEDS: ALBUTEROL SULFATE 1.25 MG/3 ML NEBU NEB SCH ×5 (01:36→19:40)
[2023-06-08] MEDS: POLYVINYL ALCOHOL OPHT DROPS 15 ML BOTTLE EACHEYE SCH ×6 (02:17→22:07)
[2023-06-08] MEDS: JEVITY 1.2 1000 ML LIQUID GT PRN (02:31)
[2023-06-08] MEDS: MINERAL OIL/PETROLAT OPHT OINT 3.5 GM TUBE EACHEYE SCH ×3 (05:08→22:07)
[2023-06-08] MEDS: NUTRISOURCE FIBER 4 GM PACKET GT SCH ×3 (05:09→22:07)
[2023-06-08 07:54] VITALS: TEMP 98.2
[2023-06-08] MEDS: HYDROGEN PEROXIDE 3% 118 ML BOTTLE TP SCH ×3 (09:00→20:58)
[2023-06-08] MEDS: GEMFIBROZIL 600 MG TABLET GT SCH ×2 (09:09→17:25)
[2023-06-08] MEDS: levETIRAcetam 500 MG/5 ML LIQUID UDC GT SCH ×2 (09:09→21:21)
[2023-06-08] MEDS: REMEDY ESSENTIAL ZINC PASTE 113 GM TOP SCH ×2 (09:09→21:22)
[2023-06-08] MEDS: LACOSAMIDE 100 MG/10 ML UDC GT SCH ×2 (09:09→21:26)
[2023-06-08] MEDS: PROTEIN SUPPLEMENT (PROSTAT) 30 ML LIQUID GT SCH ×2 (09:09→21:22)
[2023-06-08] MEDS: DOCUSATE SODIUM 100 MG/10 ML LIQUID UDC GT SCH ×2 (09:09→21:20)
[2023-06-08] MEDS: CLOBAZAM 10 MG TABLET GT SCH ×2 (09:09→21:26)
[2023-06-08 19:57] VITALS: TEMP 97.3
[2023-06-09] MEDS: IPRATROPIUM BROMIDE 0.5 MG/2.5 ML NEBU NEB SCH ×4 (01:38→19:15)
[2023-06-09] MEDS: ALBUTEROL SULFATE 1.25 MG/3 ML NEBU NEB SCH ×4 (01:38→19:16)
[2023-06-09] MEDS: POLYVINYL ALCOHOL OPHT DROPS 15 ML BOTTLE EACHEYE SCH ×6 (02:00→22:00)
[2023-06-09] MEDS: JEVITY 1.2 1000 ML LIQUID GT PRN (05:59)
[2023-06-09] MEDS: MINERAL OIL/PETROLAT OPHT OINT 3.5 GM TUBE EACHEYE SCH ×3 (05:59→22:00)
[2023-06-09] MEDS: NUTRISOURCE FIBER 4 GM PACKET GT SCH ×3 (05:59→22:00)
[2023-06-09 08:00] VITALS: TEMP 98.2
[2023-06-09] MEDS: HYDROGEN PEROXIDE 3% 118 ML BOTTLE TP SCH ×2 (08:38→19:16)
[2023-06-09] MEDS ORDERED: NEOMY/BACITRAC/POLYMI OINT 28.35 GM TUBE TOP SCH (09:00)
[2023-06-09] MEDS: levETIRAcetam 500 MG/5 ML LIQUID UDC GT SCH ×2 (09:36→20:36)
[2023-06-09] MEDS: DOCUSATE SODIUM 100 MG/10 ML LIQUID UDC GT SCH ×2 (09:36→20:42)
[2023-06-09] MEDS: LACOSAMIDE 100 MG/10 ML UDC GT SCH ×2 (09:39→20:48)
[2023-06-09] MEDS: GEMFIBROZIL 600 MG TABLET GT SCH ×2 (09:39→16:12)
[2023-06-09] MEDS: CLOBAZAM 10 MG TABLET GT SCH ×2 (09:39→20:48)
[2023-06-09] MEDS: PROTEIN SUPPLEMENT (PROSTAT) 30 ML LIQUID GT SCH ×2 (09:39→20:36)
[2023-06-09] MEDS: NEOMY/BACITRA/POLYMYXIN B OINT UD PACKET TP SCH (09:39)
[2023-06-09] MEDS: REMEDY ESSENTIAL ZINC PASTE 113 GM TOP SCH ×2 (09:39→20:37)
[2023-06-09 19:51] VITALS: TEMP 96
[2023-06-10] MEDS: ALBUTEROL SULFATE 1.25 MG/3 ML NEBU NEB SCH ×4 (01:35→19:09)
[2023-06-10] MEDS: IPRATROPIUM BROMIDE 0.5 MG/2.5 ML NEBU NEB SCH ×4 (01:35→19:09)
[2023-06-10] MEDS: POLYVINYL ALCOHOL OPHT DROPS 15 ML BOTTLE EACHEYE SCH ×6 (02:00→21:06)
[2023-06-10] MEDS: NUTRISOURCE FIBER 4 GM PACKET GT SCH ×3 (05:00→21:06)
[2023-06-10] MEDS: MINERAL OIL/PETROLAT OPHT OINT 3.5 GM TUBE EACHEYE SCH ×3 (05:00→21:06)
[2023-06-10 08:00] VITALS: TEMP 98.2
[2023-06-10] MEDS: DOCUSATE SODIUM 100 MG/10 ML LIQUID UDC GT SCH ×2 (08:46→20:32)
[2023-06-10] MEDS: PROTEIN SUPPLEMENT (PROSTAT) 30 ML LIQUID GT SCH ×2 (08:46→20:32)
[2023-06-10] MEDS: levETIRAcetam 500 MG/5 ML LIQUID UDC GT SCH ×2 (08:46→20:32)
[2023-06-10] MEDS: GEMFIBROZIL 600 MG TABLET GT SCH ×2 (08:46→17:14)
[2023-06-10] MEDS: LACOSAMIDE 100 MG/10 ML UDC GT SCH ×2 (08:47→20:32)
[2023-06-10] MEDS: REMEDY ESSENTIAL ZINC PASTE 113 GM TOP SCH ×2 (08:48→20:32)
[2023-06-10] MEDS: NEOMY/BACITRA/POLYMYXIN B OINT UD PACKET TP SCH (08:48)
[2023-06-10] MEDS: BISACODYL 10 MG SUPP.RECT RC SCH (08:48)
[2023-06-10] MEDS: CLOBAZAM 10 MG TABLET GT SCH ×2 (08:51→20:32)
[2023-06-10] MEDS: HYDROGEN PEROXIDE 3% 118 ML BOTTLE TP SCH ×2 (09:00→21:00)
[2023-06-10] MEDS: JEVITY 1.2 1000 ML LIQUID GT PRN (14:33)
[2023-06-10 20:34] VITALS: TEMP 97.3
[2023-06-11] MEDS: IPRATROPIUM BROMIDE 0.5 MG/2.5 ML NEBU NEB SCH ×4 (01:51→19:47)
[2023-06-11] MEDS: ALBUTEROL SULFATE 1.25 MG/3 ML NEBU NEB SCH ×4 (01:52→19:47)
[2023-06-11] MEDS: POLYVINYL ALCOHOL OPHT DROPS 15 ML BOTTLE EACHEYE SCH ×6 (02:39→22:04)
[2023-06-11] MEDS: MINERAL OIL/PETROLAT OPHT OINT 3.5 GM TUBE EACHEYE SCH ×3 (05:14→22:04)
[2023-06-11] MEDS: NUTRISOURCE FIBER 4 GM PACKET GT SCH ×3 (05:14→22:04)
[2023-06-11 08:00] VITALS: TEMP 98
[2023-06-11] MEDS: levETIRAcetam 500 MG/5 ML LIQUID UDC GT SCH ×2 (08:46→21:48)
[2023-06-11] MEDS: DOCUSATE SODIUM 100 MG/10 ML LIQUID UDC GT SCH ×2 (08:46→21:48)
[2023-06-11] MEDS: GEMFIBROZIL 600 MG TABLET GT SCH ×2 (08:47→17:15)
[2023-06-11] MEDS: PROTEIN SUPPLEMENT (PROSTAT) 30 ML LIQUID GT SCH ×2 (08:47→21:48)
[2023-06-11] MEDS: CLOBAZAM 10 MG TABLET GT SCH ×2 (08:47→21:52)
[2023-06-11] MEDS: REMEDY ESSENTIAL ZINC PASTE 113 GM TOP SCH ×2 (08:48→21:48)
[2023-06-11] MEDS: LACOSAMIDE 100 MG/10 ML UDC GT SCH ×2 (08:48→21:52)
[2023-06-11] MEDS: NEOMY/BACITRA/POLYMYXIN B OINT UD PACKET TP SCH (08:49)
[2023-06-11] MEDS: HYDROGEN PEROXIDE 3% 118 ML BOTTLE TP SCH ×2 (08:57→19:47)
[2023-06-11] MEDS: JEVITY 1.2 1000 ML LIQUID GT PRN (13:57)
[2023-06-11 20:00] VITALS: TEMP 98.1
[2023-06-12] MEDS: ALBUTEROL SULFATE 1.25 MG/3 ML NEBU NEB SCH ×4 (01:31→19:17)
[2023-06-12] MEDS: IPRATROPIUM BROMIDE 0.5 MG/2.5 ML NEBU NEB SCH ×4 (01:31→19:17)
[2023-06-12] MEDS: POLYVINYL ALCOHOL OPHT DROPS 15 ML BOTTLE EACHEYE SCH ×6 (02:00→21:04)
[2023-06-12] MEDS: MINERAL OIL/PETROLAT OPHT OINT 3.5 GM TUBE EACHEYE SCH ×3 (06:00→21:04)
[2023-06-12] MEDS: NUTRISOURCE FIBER 4 GM PACKET GT SCH ×3 (06:00→21:04)
[2023-06-12] MEDS: HYDROGEN PEROXIDE 3% 118 ML BOTTLE TP SCH ×2 (07:22→19:17)
[2023-06-12 07:39] VITALS: TEMP 98.3
[2023-06-12] MEDS: CLOBAZAM 10 MG TABLET GT SCH ×2 (08:32→21:18)
[2023-06-12] MEDS: LACOSAMIDE 100 MG/10 ML UDC GT SCH ×2 (08:32→21:18)
[2023-06-12] MEDS: DOCUSATE SODIUM 100 MG/10 ML LIQUID UDC GT SCH ×2 (08:33→21:03)
[2023-06-12] MEDS: levETIRAcetam 500 MG/5 ML LIQUID UDC GT SCH ×2 (08:34→21:03)
[2023-06-12] MEDS: BISACODYL 10 MG SUPP.RECT RC SCH (08:35)
[2023-06-12] MEDS: PROTEIN SUPPLEMENT (PROSTAT) 30 ML LIQUID GT SCH ×2 (08:35→21:03)
[2023-06-12] MEDS: GEMFIBROZIL 600 MG TABLET GT SCH ×2 (08:35→16:54)
[2023-06-12] MEDS: REMEDY ESSENTIAL ZINC PASTE 113 GM TOP SCH ×2 (08:36→21:03)
[2023-06-12] MEDS: NEOMY/BACITRA/POLYMYXIN B OINT UD PACKET TP SCH (08:36)
[2023-06-12] MEDS: JEVITY 1.2 1000 ML LIQUID GT PRN (18:30)
[2023-06-12 19:37] VITALS: TEMP 98.3
[2023-06-13] MEDS: IPRATROPIUM BROMIDE 0.5 MG/2.5 ML NEBU NEB SCH ×4 (01:03→19:07)
[2023-06-13] MEDS: ALBUTEROL SULFATE 1.25 MG/3 ML NEBU NEB SCH ×4 (01:03→19:07)
[2023-06-13] MEDS: POLYVINYL ALCOHOL OPHT DROPS 15 ML BOTTLE EACHEYE SCH ×6 (02:07→21:41)
[2023-06-13] MEDS: MINERAL OIL/PETROLAT OPHT OINT 3.5 GM TUBE EACHEYE SCH ×3 (06:09→21:41)
[2023-06-13] MEDS: NUTRISOURCE FIBER 4 GM PACKET GT SCH ×3 (06:09→21:41)
[2023-06-13 07:52] VITALS: TEMP 97.3
[2023-06-13] MEDS: HYDROGEN PEROXIDE 3% 118 ML BOTTLE TP SCH ×2 (09:00→21:20)
[2023-06-13] MEDS: REMEDY ESSENTIAL ZINC PASTE 113 GM TOP SCH ×2 (09:00→21:41)
[2023-06-13] MEDS: NEOMY/BACITRA/POLYMYXIN B OINT UD PACKET TP SCH (09:00)
[2023-06-13] MEDS: CLOBAZAM 10 MG TABLET GT SCH ×2 (09:57→21:40)
[2023-06-13] MEDS: LACOSAMIDE 100 MG/10 ML UDC GT SCH ×2 (09:57→21:40)
[2023-06-13] MEDS: DOCUSATE SODIUM 100 MG/10 ML LIQUID UDC GT SCH ×2 (09:57→21:39)
[2023-06-13] MEDS: levETIRAcetam 500 MG/5 ML LIQUID UDC GT SCH ×2 (09:57→21:40)
[2023-06-13] MEDS: GEMFIBROZIL 600 MG TABLET GT SCH ×2 (09:57→17:27)
[2023-06-13] MEDS: PROTEIN SUPPLEMENT (PROSTAT) 30 ML LIQUID GT SCH ×2 (09:57→21:40)
[2023-06-13 20:00] VITALS: TEMP 96.2
[2023-06-13] MEDS: JEVITY 1.2 1000 ML LIQUID GT PRN (22:00)
[2023-06-14] MEDS: IPRATROPIUM BROMIDE 0.5 MG/2.5 ML NEBU NEB SCH ×4 (01:04→20:00)
[2023-06-14] MEDS: ALBUTEROL SULFATE 1.25 MG/3 ML NEBU NEB SCH ×4 (01:04→20:00)
[2023-06-14] MEDS: POLYVINYL ALCOHOL OPHT DROPS 15 ML BOTTLE EACHEYE SCH ×6 (02:00→21:14)
[2023-06-14] MEDS: NUTRISOURCE FIBER 4 GM PACKET GT SCH ×3 (05:55→21:14)
[2023-06-14] MEDS: MINERAL OIL/PETROLAT OPHT OINT 3.5 GM TUBE EACHEYE SCH ×3 (05:55→21:14)
[2023-06-14 07:33] VITALS: TEMP 98.3
[2023-06-14] MEDS: HYDROGEN PEROXIDE 3% 118 ML BOTTLE TP SCH ×2 (07:40→21:33)
[2023-06-14] MEDS: DOCUSATE SODIUM 100 MG/10 ML LIQUID UDC GT SCH ×2 (09:23→21:06)
[2023-06-14] MEDS: levETIRAcetam 500 MG/5 ML LIQUID UDC GT SCH ×2 (09:24→21:06)
[2023-06-14] MEDS: GEMFIBROZIL 600 MG TABLET GT SCH ×2 (09:24→16:47)
[2023-06-14] MEDS: PROTEIN SUPPLEMENT (PROSTAT) 30 ML LIQUID GT SCH ×2 (09:25→21:06)
[2023-06-14] MEDS: CLOBAZAM 10 MG TABLET GT SCH ×2 (09:25→21:29)
[2023-06-14] MEDS: LACOSAMIDE 100 MG/10 ML UDC GT SCH ×2 (09:25→21:30)
[2023-06-14] MEDS: BISACODYL 10 MG SUPP.RECT RC SCH (09:26)
[2023-06-14] MEDS: REMEDY ESSENTIAL ZINC PASTE 113 GM TOP SCH ×2 (09:26→21:07)
[2023-06-14] MEDS: NEOMY/BACITRA/POLYMYXIN B OINT UD PACKET TP SCH (09:26)
[2023-06-14 20:00] VITALS: TEMP 96.9
[2023-06-15] MEDS: IPRATROPIUM BROMIDE 0.5 MG/2.5 ML NEBU NEB SCH ×4 (01:52→19:08)
[2023-06-15] MEDS: ALBUTEROL SULFATE 1.25 MG/3 ML NEBU NEB SCH ×4 (01:52→19:08)
[2023-06-15] MEDS: POLYVINYL ALCOHOL OPHT DROPS 15 ML BOTTLE EACHEYE SCH ×6 (02:00→21:07)
[2023-06-15] MEDS: JEVITY 1.2 1000 ML LIQUID GT PRN (03:00)
[2023-06-15] MEDS: MINERAL OIL/PETROLAT OPHT OINT 3.5 GM TUBE EACHEYE SCH ×3 (05:50→21:07)
[2023-06-15] MEDS: NUTRISOURCE FIBER 4 GM PACKET GT SCH ×3 (05:50→21:07)
[2023-06-15 08:00] VITALS: TEMP 97
[2023-06-15] MEDS: DOCUSATE SODIUM 100 MG/10 ML LIQUID UDC GT SCH ×2 (09:03→20:53)
[2023-06-15] MEDS: levETIRAcetam 500 MG/5 ML LIQUID UDC GT SCH ×2 (09:05→20:54)
[2023-06-15] MEDS: CLOBAZAM 10 MG TABLET GT SCH ×2 (09:06→20:59)
[2023-06-15] MEDS: LACOSAMIDE 100 MG/10 ML UDC GT SCH ×2 (09:06→20:59)
[2023-06-15] MEDS: GEMFIBROZIL 600 MG TABLET GT SCH ×2 (09:06→17:47)
[2023-06-15] MEDS: NEOMY/BACITRA/POLYMYXIN B OINT UD PACKET TP SCH (09:07)
[2023-06-15] MEDS: PROTEIN SUPPLEMENT (PROSTAT) 30 ML LIQUID GT SCH ×2 (09:07→20:54)
[2023-06-15] MEDS: REMEDY ESSENTIAL ZINC PASTE 113 GM TOP SCH ×2 (09:07→20:59)
[2023-06-15] MEDS: HYDROGEN PEROXIDE 3% 118 ML BOTTLE TP SCH ×2 (09:44→19:08)
[2023-06-15 20:59] VITALS: TEMP 96.5
[2023-06-15 23:16] VITALS: TEMP 97.4
[2023-06-16] MEDS: IPRATROPIUM BROMIDE 0.5 MG/2.5 ML NEBU NEB SCH ×4 (00:51→19:30)
[2023-06-16] MEDS: ALBUTEROL SULFATE 1.25 MG/3 ML NEBU NEB SCH ×4 (00:51→19:30)
[2023-06-16] MEDS: POLYVINYL ALCOHOL OPHT DROPS 15 ML BOTTLE EACHEYE SCH ×6 (02:21→21:41)
[2023-06-16] MEDS: NUTRISOURCE FIBER 4 GM PACKET GT SCH ×3 (05:30→22:00)
[2023-06-16] MEDS: MINERAL OIL/PETROLAT OPHT OINT 3.5 GM TUBE EACHEYE SCH ×3 (05:30→21:42)
[2023-06-16] MEDS: JEVITY 1.2 1000 ML LIQUID GT PRN (05:31)
[2023-06-16 08:00] VITALS: TEMP 97.8
[2023-06-16] MEDS: DOCUSATE SODIUM 100 MG/10 ML LIQUID UDC GT SCH ×2 (08:23→21:41)
[2023-06-16] MEDS: levETIRAcetam 500 MG/5 ML LIQUID UDC GT SCH ×2 (08:24→21:41)
[2023-06-16] MEDS: GEMFIBROZIL 600 MG TABLET GT SCH ×2 (08:24→17:10)
[2023-06-16] MEDS: PROTEIN SUPPLEMENT (PROSTAT) 30 ML LIQUID GT SCH ×2 (08:25→21:41)
[2023-06-16] MEDS: LACOSAMIDE 100 MG/10 ML UDC GT SCH ×2 (08:25→21:41)
[2023-06-16] MEDS: CLOBAZAM 10 MG TABLET GT SCH ×2 (08:25→21:41)
[2023-06-16] MEDS: REMEDY ESSENTIAL ZINC PASTE 113 GM TOP SCH ×2 (08:26→21:41)
[2023-06-16] MEDS: HYDROGEN PEROXIDE 3% 118 ML BOTTLE TP SCH ×2 (09:03→20:43)
[2023-06-16 20:05] VITALS: TEMP 97.3
[2023-06-17] MEDS: ALBUTEROL SULFATE 1.25 MG/3 ML NEBU NEB SCH ×4 (01:50→19:03)
[2023-06-17] MEDS: IPRATROPIUM BROMIDE 0.5 MG/2.5 ML NEBU NEB SCH ×4 (01:50→19:03)
[2023-06-17] MEDS: POLYVINYL ALCOHOL OPHT DROPS 15 ML BOTTLE EACHEYE SCH ×6 (02:41→22:09)
[2023-06-17] MEDS: NUTRISOURCE FIBER 4 GM PACKET GT SCH ×3 (05:06→22:10)
[2023-06-17] MEDS: MINERAL OIL/PETROLAT OPHT OINT 3.5 GM TUBE EACHEYE SCH ×3 (05:06→22:09)
[2023-06-17] MEDS: JEVITY 1.2 1000 ML LIQUID GT PRN (07:05)
[2023-06-17 08:00] VITALS: TEMP 97.6
[2023-06-17] MEDS: DOCUSATE SODIUM 100 MG/10 ML LIQUID UDC GT SCH ×2 (08:05→20:11)
[2023-06-17] MEDS: levETIRAcetam 500 MG/5 ML LIQUID UDC GT SCH ×2 (08:06→20:12)
[2023-06-17] MEDS: PROTEIN SUPPLEMENT (PROSTAT) 30 ML LIQUID GT SCH ×2 (08:08→20:12)
[2023-06-17] MEDS: GEMFIBROZIL 600 MG TABLET GT SCH ×2 (08:08→17:32)
[2023-06-17] MEDS: CLOBAZAM 10 MG TABLET GT SCH ×2 (08:14→20:12)
[2023-06-17] MEDS: LACOSAMIDE 100 MG/10 ML UDC GT SCH ×2 (08:14→20:12)
[2023-06-17] MEDS: REMEDY ESSENTIAL ZINC PASTE 113 GM TOP SCH ×2 (08:15→20:12)
[2023-06-17] MEDS: BISACODYL 10 MG SUPP.RECT RC SCH (08:15)
[2023-06-17] MEDS: HYDROGEN PEROXIDE 3% 118 ML BOTTLE TP SCH ×2 (09:14→20:12)
[2023-06-17 20:01] VITALS: TEMP 98.2
[2023-06-17] MEDS: COD LIVER OIL/ZINC OXIDE OINT 113 GM TUBE TP SCH (20:12)
[2023-06-18] MEDS: ALBUTEROL SULFATE 1.25 MG/3 ML NEBU NEB SCH ×4 (01:02→19:50)
[2023-06-18] MEDS: IPRATROPIUM BROMIDE 0.5 MG/2.5 ML NEBU NEB SCH ×4 (01:02→19:50)
[2023-06-18] MEDS: POLYVINYL ALCOHOL OPHT DROPS 15 ML BOTTLE EACHEYE SCH ×6 (02:10→22:24)
[2023-06-18] MEDS: NUTRISOURCE FIBER 4 GM PACKET GT SCH ×3 (05:20→22:24)
[2023-06-18] MEDS: MINERAL OIL/PETROLAT OPHT OINT 3.5 GM TUBE EACHEYE SCH ×3 (05:20→22:24)
[2023-06-18] MEDS: JEVITY 1.2 1000 ML LIQUID GT PRN (06:39)
[2023-06-18 08:00] VITALS: TEMP 97.8
[2023-06-18] MEDS: HYDROGEN PEROXIDE 3% 118 ML BOTTLE TP SCH ×2 (08:43→21:19)
[2023-06-18] MEDS: DOCUSATE SODIUM 100 MG/10 ML LIQUID UDC GT SCH ×2 (08:47→20:18)
[2023-06-18] MEDS: levETIRAcetam 500 MG/5 ML LIQUID UDC GT SCH ×2 (08:48→20:18)
[2023-06-18] MEDS: GEMFIBROZIL 600 MG TABLET GT SCH ×2 (08:51→17:02)
[2023-06-18] MEDS: LACOSAMIDE 100 MG/10 ML UDC GT SCH ×2 (08:52→20:21)
[2023-06-18] MEDS: CLOBAZAM 10 MG TABLET GT SCH ×2 (08:52→20:19)
[2023-06-18] MEDS: PROTEIN SUPPLEMENT (PROSTAT) 30 ML LIQUID GT SCH ×2 (08:52→20:19)
[2023-06-18] MEDS: REMEDY ESSENTIAL ZINC PASTE 113 GM TOP SCH ×2 (08:53→20:21)
[2023-06-18] MEDS: COD LIVER OIL/ZINC OXIDE OINT 113 GM TUBE TP SCH ×2 (08:56→20:21)
[2023-06-18 20:10] VITALS: TEMP 98.5
[2023-06-19] MEDS: ALBUTEROL SULFATE 1.25 MG/3 ML NEBU NEB SCH ×4 (01:41→19:40)
[2023-06-19] MEDS: IPRATROPIUM BROMIDE 0.5 MG/2.5 ML NEBU NEB SCH ×4 (01:41→19:40)
[2023-06-19] MEDS: POLYVINYL ALCOHOL OPHT DROPS 15 ML BOTTLE EACHEYE SCH ×6 (02:00→22:00)
[2023-06-19] MEDS: JEVITY 1.2 1000 ML LIQUID GT PRN (03:30)
[2023-06-19] MEDS: MINERAL OIL/PETROLAT OPHT OINT 3.5 GM TUBE EACHEYE SCH ×3 (06:04→22:00)
[2023-06-19] MEDS: NUTRISOURCE FIBER 4 GM PACKET GT SCH ×3 (06:04→22:00)
[2023-06-19] MEDS: GEMFIBROZIL 600 MG TABLET GT SCH ×2 (09:00→17:37)
[2023-06-19] MEDS: REMEDY ESSENTIAL ZINC PASTE 113 GM TOP SCH ×2 (09:00→20:48)
[2023-06-19] MEDS: COD LIVER OIL/ZINC OXIDE OINT 113 GM TUBE TP SCH ×2 (09:00→20:48)
[2023-06-19] MEDS: DOCUSATE SODIUM 100 MG/10 ML LIQUID UDC GT SCH ×2 (09:00→20:48)
[2023-06-19] MEDS: BISACODYL 10 MG SUPP.RECT RC SCH (09:00)
[2023-06-19] MEDS: LACOSAMIDE 100 MG/10 ML UDC GT SCH ×2 (09:00→20:48)
[2023-06-19] MEDS: levETIRAcetam 500 MG/5 ML LIQUID UDC GT SCH ×2 (09:00→20:48)
[2023-06-19] MEDS: CLOBAZAM 10 MG TABLET GT SCH ×2 (09:00→20:48)
[2023-06-19] MEDS: HYDROGEN PEROXIDE 3% 118 ML BOTTLE TP SCH ×2 (09:00→21:00)
[2023-06-19] MEDS: PROTEIN SUPPLEMENT (PROSTAT) 30 ML LIQUID GT SCH ×2 (09:00→20:48)
[2023-06-19 20:38] VITALS: TEMP 97.3
[2023-06-20] MEDS: ALBUTEROL SULFATE 1.25 MG/3 ML NEBU NEB SCH ×4 (00:51→19:08)
[2023-06-20] MEDS: IPRATROPIUM BROMIDE 0.5 MG/2.5 ML NEBU NEB SCH ×4 (00:51→19:08)
[2023-06-20] MEDS: POLYVINYL ALCOHOL OPHT DROPS 15 ML BOTTLE EACHEYE SCH ×6 (02:00→22:09)
[2023-06-20] MEDS: MINERAL OIL/PETROLAT OPHT OINT 3.5 GM TUBE EACHEYE SCH ×3 (05:26→22:09)
[2023-06-20] MEDS: NUTRISOURCE FIBER 4 GM PACKET GT SCH ×3 (05:26→22:09)
[2023-06-20] MEDS: HYDROGEN PEROXIDE 3% 118 ML BOTTLE TP SCH ×2 (07:57→21:03)
[2023-06-20 08:00] VITALS: TEMP 97.5
[2023-06-20] MEDS: levETIRAcetam 500 MG/5 ML LIQUID UDC GT SCH ×2 (08:06→20:31)
[2023-06-20] MEDS: GEMFIBROZIL 600 MG TABLET GT SCH ×2 (08:06→16:28)
[2023-06-20] MEDS: DOCUSATE SODIUM 100 MG/10 ML LIQUID UDC GT SCH ×2 (08:06→20:31)
[2023-06-20] MEDS: PROTEIN SUPPLEMENT (PROSTAT) 30 ML LIQUID GT SCH ×2 (08:06→20:31)
[2023-06-20] MEDS: CLOBAZAM 10 MG TABLET GT SCH ×2 (08:06→20:31)
[2023-06-20] MEDS: LACOSAMIDE 100 MG/10 ML UDC GT SCH ×2 (08:06→20:31)
[2023-06-20] MEDS: COD LIVER OIL/ZINC OXIDE OINT 113 GM TUBE TP SCH ×2 (08:07→20:32)
[2023-06-20] MEDS: REMEDY ESSENTIAL ZINC PASTE 113 GM TOP SCH ×2 (08:07→20:31)
[2023-06-20] MEDS: JEVITY 1.2 1000 ML LIQUID GT PRN (09:57)
[2023-06-20 20:00] VITALS: TEMP 97.2
[2023-06-21] MEDS: ALBUTEROL SULFATE 1.25 MG/3 ML NEBU NEB SCH ×4 (01:02→19:17)
[2023-06-21] MEDS: IPRATROPIUM BROMIDE 0.5 MG/2.5 ML NEBU NEB SCH ×4 (01:02→19:17)
[2023-06-21] MEDS: POLYVINYL ALCOHOL OPHT DROPS 15 ML BOTTLE EACHEYE SCH ×6 (02:00→21:00)
[2023-06-21] MEDS: MINERAL OIL/PETROLAT OPHT OINT 3.5 GM TUBE EACHEYE SCH ×3 (05:22→21:00)
[2023-06-21] MEDS: NUTRISOURCE FIBER 4 GM PACKET GT SCH ×3 (05:22→21:00)
[2023-06-21 07:36] VITALS: TEMP 97.8
[2023-06-21] MEDS: PROTEIN SUPPLEMENT (PROSTAT) 30 ML LIQUID GT SCH ×2 (08:09→20:58)
[2023-06-21] MEDS: levETIRAcetam 500 MG/5 ML LIQUID UDC GT SCH ×2 (08:09→21:00)
[2023-06-21] MEDS: GEMFIBROZIL 600 MG TABLET GT SCH ×2 (08:09→17:01)
[2023-06-21] MEDS: CLOBAZAM 10 MG TABLET GT SCH ×2 (08:09→21:07)
[2023-06-21] MEDS: DOCUSATE SODIUM 100 MG/10 ML LIQUID UDC GT SCH ×2 (08:09→20:58)
[2023-06-21] MEDS: LACOSAMIDE 100 MG/10 ML UDC GT SCH ×2 (08:19→21:07)
[2023-06-21] MEDS: BISACODYL 10 MG SUPP.RECT RC SCH (08:19)
[2023-06-21] MEDS: REMEDY ESSENTIAL ZINC PASTE 113 GM TOP SCH ×2 (08:19→20:59)
[2023-06-21] MEDS: COD LIVER OIL/ZINC OXIDE OINT 113 GM TUBE TP SCH ×2 (08:19→20:59)
[2023-06-21] MEDS: HYDROGEN PEROXIDE 3% 118 ML BOTTLE TP SCH ×2 (08:50→19:17)
[2023-06-21] MEDS: JEVITY 1.2 1000 ML LIQUID GT PRN (10:31)
[2023-06-21 20:00] VITALS: TEMP 97
[2023-06-22] MEDS: IPRATROPIUM BROMIDE 0.5 MG/2.5 ML NEBU NEB SCH ×4 (01:28→19:13)
[2023-06-22] MEDS: ALBUTEROL SULFATE 1.25 MG/3 ML NEBU NEB SCH ×4 (01:28→19:13)
[2023-06-22] MEDS: POLYVINYL ALCOHOL OPHT DROPS 15 ML BOTTLE EACHEYE SCH ×6 (02:00→20:33)
[2023-06-22] MEDS: MINERAL OIL/PETROLAT OPHT OINT 3.5 GM TUBE EACHEYE SCH ×3 (06:00→20:33)
[2023-06-22] MEDS: NUTRISOURCE FIBER 4 GM PACKET GT SCH ×3 (06:00→22:00)
[2023-06-22] MEDS: JEVITY 1.2 1000 ML LIQUID GT PRN (07:11)
[2023-06-22 08:00] VITALS: TEMP 98.2
[2023-06-22] MEDS: LACOSAMIDE 100 MG/10 ML UDC GT SCH ×2 (08:43→20:39)
[2023-06-22] MEDS: REMEDY ESSENTIAL ZINC PASTE 113 GM TOP SCH ×2 (08:43→20:32)
[2023-06-22] MEDS: PROTEIN SUPPLEMENT (PROSTAT) 30 ML LIQUID GT SCH ×2 (08:43→20:32)
[2023-06-22] MEDS: DOCUSATE SODIUM 100 MG/10 ML LIQUID UDC GT SCH ×2 (08:43→20:32)
[2023-06-22] MEDS: GEMFIBROZIL 600 MG TABLET GT SCH ×2 (08:43→17:08)
[2023-06-22] MEDS: CLOBAZAM 10 MG TABLET GT SCH ×2 (08:43→20:39)
[2023-06-22] MEDS: COD LIVER OIL/ZINC OXIDE OINT 113 GM TUBE TP SCH ×2 (08:43→20:33)
[2023-06-22] MEDS: levETIRAcetam 500 MG/5 ML LIQUID UDC GT SCH ×2 (08:43→20:31)
[2023-06-22] MEDS: HYDROGEN PEROXIDE 3% 118 ML BOTTLE TP SCH ×2 (08:46→19:13)
[2023-06-22 21:52] VITALS: TEMP 96.2
[2023-06-23] MEDS: ALBUTEROL SULFATE 1.25 MG/3 ML NEBU NEB SCH ×4 (01:19→19:13)
[2023-06-23] MEDS: IPRATROPIUM BROMIDE 0.5 MG/2.5 ML NEBU NEB SCH ×4 (01:19→19:13)
[2023-06-23] MEDS: POLYVINYL ALCOHOL OPHT DROPS 15 ML BOTTLE EACHEYE SCH ×6 (02:00→22:28)
[2023-06-23] MEDS: JEVITY 1.2 1000 ML LIQUID GT PRN (03:13)
[2023-06-23] MEDS: NUTRISOURCE FIBER 4 GM PACKET GT SCH ×3 (06:13→22:28)
[2023-06-23] MEDS: MINERAL OIL/PETROLAT OPHT OINT 3.5 GM TUBE EACHEYE SCH ×3 (06:13→22:28)
[2023-06-23 08:00] VITALS: TEMP 98.2
[2023-06-23] MEDS: GEMFIBROZIL 600 MG TABLET GT SCH ×2 (08:34→17:00)
[2023-06-23] MEDS: levETIRAcetam 500 MG/5 ML LIQUID UDC GT SCH ×2 (08:34→20:33)
[2023-06-23] MEDS: DOCUSATE SODIUM 100 MG/10 ML LIQUID UDC GT SCH ×2 (08:34→20:33)
[2023-06-23] MEDS: PROTEIN SUPPLEMENT (PROSTAT) 30 ML LIQUID GT SCH ×2 (08:35→20:33)
[2023-06-23] MEDS: LACOSAMIDE 100 MG/10 ML UDC GT SCH ×2 (08:35→20:47)
[2023-06-23] MEDS: CLOBAZAM 10 MG TABLET GT SCH ×2 (08:35→20:47)
[2023-06-23] MEDS: COD LIVER OIL/ZINC OXIDE OINT 113 GM TUBE TP SCH ×2 (08:35→20:33)
[2023-06-23] MEDS: REMEDY ESSENTIAL ZINC PASTE 113 GM TOP SCH ×2 (08:35→20:33)
[2023-06-23] MEDS: HYDROGEN PEROXIDE 3% 118 ML BOTTLE TP SCH ×2 (09:12→19:13)
[2023-06-23 20:16] VITALS: TEMP 98.4
[2023-06-24] MEDS: ALBUTEROL SULFATE 1.25 MG/3 ML NEBU NEB SCH ×4 (01:02→19:13)
[2023-06-24] MEDS: IPRATROPIUM BROMIDE 0.5 MG/2.5 ML NEBU NEB SCH ×4 (01:02→19:13)
[2023-06-24] MEDS: POLYVINYL ALCOHOL OPHT DROPS 15 ML BOTTLE EACHEYE SCH ×6 (02:00→22:19)
[2023-06-24] MEDS: MINERAL OIL/PETROLAT OPHT OINT 3.5 GM TUBE EACHEYE SCH ×3 (05:20→22:19)
[2023-06-24] MEDS: NUTRISOURCE FIBER 4 GM PACKET GT SCH ×3 (05:20→22:19)
[2023-06-24] MEDS: JEVITY 1.2 1000 ML LIQUID GT PRN (05:21)
[2023-06-24] MEDS: GEMFIBROZIL 600 MG TABLET GT SCH ×2 (08:29→17:03)
[2023-06-24] MEDS: LACOSAMIDE 100 MG/10 ML UDC GT SCH ×2 (08:29→21:00)
[2023-06-24] MEDS: levETIRAcetam 500 MG/5 ML LIQUID UDC GT SCH ×2 (08:29→21:00)
[2023-06-24] MEDS: BISACODYL 10 MG SUPP.RECT RC SCH (08:29)
[2023-06-24] MEDS: DOCUSATE SODIUM 100 MG/10 ML LIQUID UDC GT SCH ×2 (08:29→21:00)
[2023-06-24] MEDS: PROTEIN SUPPLEMENT (PROSTAT) 30 ML LIQUID GT SCH ×2 (08:29→21:00)
[2023-06-24] MEDS: REMEDY ESSENTIAL ZINC PASTE 113 GM TOP SCH ×2 (08:29→21:00)
[2023-06-24] MEDS: COD LIVER OIL/ZINC OXIDE OINT 113 GM TUBE TP SCH ×2 (08:29→21:00)
[2023-06-24] MEDS: CLOBAZAM 10 MG TABLET GT SCH ×2 (08:29→21:00)
[2023-06-24 08:47] VITALS: TEMP 97.6
[2023-06-24] MEDS: HYDROGEN PEROXIDE 3% 118 ML BOTTLE TP SCH ×2 (09:12→19:13)
[2023-06-24 19:42] VITALS: TEMP 97.6
[2023-06-25] MEDS: IPRATROPIUM BROMIDE 0.5 MG/2.5 ML NEBU NEB SCH ×4 (01:10→19:21)
[2023-06-25] MEDS: ALBUTEROL SULFATE 1.25 MG/3 ML NEBU NEB SCH ×4 (01:11→19:21)
[2023-06-25] MEDS: POLYVINYL ALCOHOL OPHT DROPS 15 ML BOTTLE EACHEYE SCH ×6 (02:00→22:04)
[2023-06-25] MEDS: JEVITY 1.2 1000 ML LIQUID GT PRN (02:30)
[2023-06-25] MEDS: NUTRISOURCE FIBER 4 GM PACKET GT SCH ×3 (05:10→22:05)
[2023-06-25] MEDS: MINERAL OIL/PETROLAT OPHT OINT 3.5 GM TUBE EACHEYE SCH ×3 (05:10→22:05)
[2023-06-25] MEDS: HYDROGEN PEROXIDE 3% 118 ML BOTTLE TP SCH ×2 (08:18→19:21)
[2023-06-25 08:34] VITALS: TEMP 97.6
[2023-06-25] MEDS: DOCUSATE SODIUM 100 MG/10 ML LIQUID UDC GT SCH ×2 (08:43→20:47)
[2023-06-25] MEDS: levETIRAcetam 500 MG/5 ML LIQUID UDC GT SCH ×2 (08:43→20:48)
[2023-06-25] MEDS: GEMFIBROZIL 600 MG TABLET GT SCH ×2 (08:44→17:38)
[2023-06-25] MEDS: PROTEIN SUPPLEMENT (PROSTAT) 30 ML LIQUID GT SCH ×2 (08:44→20:48)
[2023-06-25] MEDS: CLOBAZAM 10 MG TABLET GT SCH ×2 (08:44→20:48)
[2023-06-25] MEDS: LACOSAMIDE 100 MG/10 ML UDC GT SCH ×2 (08:44→20:49)
[2023-06-25] MEDS: COD LIVER OIL/ZINC OXIDE OINT 113 GM TUBE TP SCH ×2 (08:45→20:50)
[2023-06-25] MEDS: REMEDY ESSENTIAL ZINC PASTE 113 GM TOP SCH ×2 (08:45→20:50)
[2023-06-25 19:40] VITALS: TEMP 97.5
[2023-06-26] MEDS: ALBUTEROL SULFATE 1.25 MG/3 ML NEBU NEB SCH ×4 (01:14→19:19)
[2023-06-26] MEDS: IPRATROPIUM BROMIDE 0.5 MG/2.5 ML NEBU NEB SCH ×4 (01:14→19:19)
[2023-06-26] MEDS: POLYVINYL ALCOHOL OPHT DROPS 15 ML BOTTLE EACHEYE SCH ×6 (02:00→22:05)
[2023-06-26] MEDS: JEVITY 1.2 1000 ML LIQUID GT PRN (04:00)
[2023-06-26] MEDS: NUTRISOURCE FIBER 4 GM PACKET GT SCH ×3 (05:31→22:05)
[2023-06-26] MEDS: MINERAL OIL/PETROLAT OPHT OINT 3.5 GM TUBE EACHEYE SCH ×3 (05:31→22:05)
[2023-06-26 07:36] VITALS: TEMP 98
[2023-06-26] MEDS: DOCUSATE SODIUM 100 MG/10 ML LIQUID UDC GT SCH ×2 (08:07→20:10)
[2023-06-26] MEDS: levETIRAcetam 500 MG/5 ML LIQUID UDC GT SCH ×2 (08:09→20:10)
[2023-06-26] MEDS: GEMFIBROZIL 600 MG TABLET GT SCH ×2 (08:10→17:00)
[2023-06-26] MEDS: LACOSAMIDE 100 MG/10 ML UDC GT SCH ×2 (08:24→20:13)
[2023-06-26] MEDS: CLOBAZAM 10 MG TABLET GT SCH ×2 (08:24→20:13)
[2023-06-26] MEDS: PROTEIN SUPPLEMENT (PROSTAT) 30 ML LIQUID GT SCH ×2 (08:24→20:13)
[2023-06-26] MEDS: COD LIVER OIL/ZINC OXIDE OINT 113 GM TUBE TP SCH ×2 (08:26→20:14)
[2023-06-26] MEDS: REMEDY ESSENTIAL ZINC PASTE 113 GM TOP SCH ×2 (08:26→20:14)
[2023-06-26] MEDS: BISACODYL 10 MG SUPP.RECT RC SCH (09:00)
[2023-06-26] MEDS: HYDROGEN PEROXIDE 3% 118 ML BOTTLE TP SCH ×2 (09:49→19:19)
[2023-06-26 20:00] VITALS: TEMP 96
[2023-06-27] MEDS: IPRATROPIUM BROMIDE 0.5 MG/2.5 ML NEBU NEB SCH ×4 (01:30→19:08)
[2023-06-27] MEDS: ALBUTEROL SULFATE 1.25 MG/3 ML NEBU NEB SCH ×4 (01:30→19:08)
[2023-06-27] MEDS: POLYVINYL ALCOHOL OPHT DROPS 15 ML BOTTLE EACHEYE SCH ×6 (02:00→22:01)
[2023-06-27] MEDS: JEVITY 1.2 1000 ML LIQUID GT PRN (03:35)
[2023-06-27] MEDS: MINERAL OIL/PETROLAT OPHT OINT 3.5 GM TUBE EACHEYE SCH ×3 (05:18→22:01)
[2023-06-27] MEDS: NUTRISOURCE FIBER 4 GM PACKET GT SCH ×3 (05:18→22:01)
[2023-06-27 08:00] VITALS: TEMP 97
[2023-06-27] MEDS: DOCUSATE SODIUM 100 MG/10 ML LIQUID UDC GT SCH ×2 (08:00→20:05)
[2023-06-27] MEDS: PROTEIN SUPPLEMENT (PROSTAT) 30 ML LIQUID GT SCH ×2 (08:07→20:05)
[2023-06-27] MEDS: levETIRAcetam 500 MG/5 ML LIQUID UDC GT SCH ×2 (08:07→20:05)
[2023-06-27] MEDS: GEMFIBROZIL 600 MG TABLET GT SCH ×2 (08:07→17:22)
[2023-06-27] MEDS: COD LIVER OIL/ZINC OXIDE OINT 113 GM TUBE TP SCH (08:07)
[2023-06-27] MEDS: REMEDY ESSENTIAL ZINC PASTE 113 GM TOP SCH ×2 (08:08→20:05)
[2023-06-27] MEDS: LACOSAMIDE 100 MG/10 ML UDC GT SCH ×2 (08:17→20:08)
[2023-06-27] MEDS: CLOBAZAM 10 MG TABLET GT SCH ×2 (08:17→20:08)
[2023-06-27] MEDS: HYDROGEN PEROXIDE 3% 118 ML BOTTLE TP SCH ×2 (09:34→19:08)
[2023-06-27 20:00] VITALS: TEMP 98.4
[2023-06-28] MEDS: IPRATROPIUM BROMIDE 0.5 MG/2.5 ML NEBU NEB SCH ×4 (01:19→19:26)
[2023-06-28] MEDS: ALBUTEROL SULFATE 1.25 MG/3 ML NEBU NEB SCH ×4 (01:20→19:26)
[2023-06-28] MEDS: POLYVINYL ALCOHOL OPHT DROPS 15 ML BOTTLE EACHEYE SCH ×6 (02:00→21:20)
[2023-06-28] MEDS: MINERAL OIL/PETROLAT OPHT OINT 3.5 GM TUBE EACHEYE SCH ×3 (05:38→21:20)
[2023-06-28] MEDS: NUTRISOURCE FIBER 4 GM PACKET GT SCH ×3 (05:38→21:20)
[2023-06-28] MEDS: JEVITY 1.2 1000 ML LIQUID GT PRN (06:42)
[2023-06-28 07:41] VITALS: TEMP 97.2
[2023-06-28] MEDS: HYDROGEN PEROXIDE 3% 118 ML BOTTLE TP SCH ×2 (08:00→19:27)
[2023-06-28] MEDS: DOCUSATE SODIUM 100 MG/10 ML LIQUID UDC GT SCH ×2 (08:43→21:20)
[2023-06-28] MEDS: levETIRAcetam 500 MG/5 ML LIQUID UDC GT SCH ×2 (08:50→21:20)
[2023-06-28] MEDS: LACOSAMIDE 100 MG/10 ML UDC GT SCH ×2 (09:02→20:50)
[2023-06-28] MEDS: CLOBAZAM 10 MG TABLET GT SCH ×2 (09:02→20:50)
[2023-06-28] MEDS: PROTEIN SUPPLEMENT (PROSTAT) 30 ML LIQUID GT SCH ×2 (09:03→21:20)
[2023-06-28] MEDS: REMEDY ESSENTIAL ZINC PASTE 113 GM TOP SCH ×2 (09:03→21:20)
[2023-06-28] MEDS: GEMFIBROZIL 600 MG TABLET GT SCH ×2 (09:03→17:25)
[2023-06-28] MEDS: BISACODYL 10 MG SUPP.RECT RC SCH (09:03)
[2023-06-28 20:10] VITALS: TEMP 96.7
[2023-06-29] MEDS: IPRATROPIUM BROMIDE 0.5 MG/2.5 ML NEBU NEB SCH ×4 (01:18→19:06)
[2023-06-29] MEDS: ALBUTEROL SULFATE 1.25 MG/3 ML NEBU NEB SCH ×4 (01:18→19:06)
[2023-06-29] MEDS: POLYVINYL ALCOHOL OPHT DROPS 15 ML BOTTLE EACHEYE SCH ×6 (02:00→21:10)
[2023-06-29] MEDS: JEVITY 1.2 1000 ML LIQUID GT PRN (06:00)
[2023-06-29] MEDS: NUTRISOURCE FIBER 4 GM PACKET GT SCH ×3 (06:51→21:11)
[2023-06-29] MEDS: MINERAL OIL/PETROLAT OPHT OINT 3.5 GM TUBE EACHEYE SCH ×3 (06:51→21:10)
[2023-06-29 07:25] VITALS: O2SAT 99
[2023-06-29] MEDS: HYDROGEN PEROXIDE 3% 118 ML BOTTLE TP SCH ×2 (07:33→21:10)
[2023-06-29] MEDS: DOCUSATE SODIUM 100 MG/10 ML LIQUID UDC GT SCH ×2 (08:44→21:10)
[2023-06-29] MEDS: CLOBAZAM 10 MG TABLET GT SCH ×2 (08:45→21:10)
[2023-06-29] MEDS: LACOSAMIDE 100 MG/10 ML UDC GT SCH ×2 (08:45→21:10)
[2023-06-29] MEDS: GEMFIBROZIL 600 MG TABLET GT SCH ×2 (08:45→17:06)
[2023-06-29] MEDS: PROTEIN SUPPLEMENT (PROSTAT) 30 ML LIQUID GT SCH ×2 (08:45→21:10)
[2023-06-29] MEDS: REMEDY ESSENTIAL ZINC PASTE 113 GM TOP SCH ×2 (08:45→21:10)
[2023-06-29] MEDS: levETIRAcetam 500 MG/5 ML LIQUID UDC GT SCH ×2 (08:45→21:10)
[2023-06-29 12:38] VITALS: TEMP 97.7
[2023-06-29 20:00] VITALS: TEMP 97.7
[2023-06-30] MEDS: POLYVINYL ALCOHOL OPHT DROPS 15 ML BOTTLE EACHEYE SCH ×6 (01:55→21:01)
[2023-06-30] MEDS: IPRATROPIUM BROMIDE 0.5 MG/2.5 ML NEBU NEB SCH ×4 (02:14→19:06)
[2023-06-30] MEDS: ALBUTEROL SULFATE 1.25 MG/3 ML NEBU NEB SCH ×4 (02:14→19:06)
[2023-06-30] MEDS: NUTRISOURCE FIBER 4 GM PACKET GT SCH ×3 (05:03→21:02)
[2023-06-30] MEDS: MINERAL OIL/PETROLAT OPHT OINT 3.5 GM TUBE EACHEYE SCH ×3 (05:03→21:02)
[2023-06-30] MEDS: JEVITY 1.2 1000 ML LIQUID GT PRN (06:32)
[2023-06-30 07:58] VITALS: TEMP 97.9
[2023-06-30] MEDS: DOCUSATE SODIUM 100 MG/10 ML LIQUID UDC GT SCH ×2 (08:55→21:01)
[2023-06-30] MEDS: GEMFIBROZIL 600 MG TABLET GT SCH ×2 (08:56→16:58)
[2023-06-30] MEDS: levETIRAcetam 500 MG/5 ML LIQUID UDC GT SCH ×2 (08:56→21:01)
[2023-06-30] MEDS: REMEDY ESSENTIAL ZINC PASTE 113 GM TOP SCH ×2 (08:58→21:01)
[2023-06-30] MEDS: CLOBAZAM 10 MG TABLET GT SCH ×2 (08:58→21:01)
[2023-06-30] MEDS: PROTEIN SUPPLEMENT (PROSTAT) 30 ML LIQUID GT SCH ×2 (08:58→21:01)
[2023-06-30] MEDS: LACOSAMIDE 100 MG/10 ML UDC GT SCH ×2 (08:58→21:01)
[2023-06-30] MEDS: HYDROGEN PEROXIDE 3% 118 ML BOTTLE TP SCH ×2 (09:49→19:06)
[2023-06-30 20:00] VITALS: TEMP 97.3
[2023-07-01] MEDS: ALBUTEROL SULFATE 1.25 MG/3 ML NEBU NEB SCH ×4 (00:32→19:24)
[2023-07-01] MEDS: IPRATROPIUM BROMIDE 0.5 MG/2.5 ML NEBU NEB SCH ×4 (00:32→19:24)
[2023-07-01] MEDS: POLYVINYL ALCOHOL OPHT DROPS 15 ML BOTTLE EACHEYE SCH ×6 (02:32→22:23)
[2023-07-01] MEDS: NUTRISOURCE FIBER 4 GM PACKET GT SCH ×3 (05:26→22:23)
[2023-07-01] MEDS: MINERAL OIL/PETROLAT OPHT OINT 3.5 GM TUBE EACHEYE SCH ×3 (05:26→22:23)
[2023-07-01] MEDS: HYDROGEN PEROXIDE 3% 118 ML BOTTLE TP SCH ×2 (07:09→19:24)
[2023-07-01 08:00] VITALS: TEMP 97.6
[2023-07-01] MEDS: DOCUSATE SODIUM 100 MG/10 ML LIQUID UDC GT SCH ×2 (08:04→21:00)
[2023-07-01] MEDS: levETIRAcetam 500 MG/5 ML LIQUID UDC GT SCH ×2 (08:05→21:00)
[2023-07-01] MEDS: PROTEIN SUPPLEMENT (PROSTAT) 30 ML LIQUID GT SCH ×2 (08:07→21:00)
[2023-07-01] MEDS: REMEDY ESSENTIAL ZINC PASTE 113 GM TOP SCH ×2 (08:07→21:00)
[2023-07-01] MEDS: GEMFIBROZIL 600 MG TABLET GT SCH ×2 (08:07→17:11)
[2023-07-01] MEDS: LACOSAMIDE 100 MG/10 ML UDC GT SCH ×2 (08:21→21:00)
[2023-07-01] MEDS: BISACODYL 10 MG SUPP.RECT RC SCH (08:21)
[2023-07-01] MEDS: CLOBAZAM 10 MG TABLET GT SCH ×2 (08:21→21:00)
[2023-07-01 20:15] VITALS: TEMP 97
[2023-07-02] MEDS: ALBUTEROL SULFATE 1.25 MG/3 ML NEBU NEB SCH ×4 (00:49→19:00)
[2023-07-02] MEDS: IPRATROPIUM BROMIDE 0.5 MG/2.5 ML NEBU NEB SCH ×4 (00:49→19:00)
[2023-07-02] MEDS: POLYVINYL ALCOHOL OPHT DROPS 15 ML BOTTLE EACHEYE SCH ×6 (02:44→22:07)
[2023-07-02] MEDS: MINERAL OIL/PETROLAT OPHT OINT 3.5 GM TUBE EACHEYE SCH ×3 (05:28→22:07)
[2023-07-02] MEDS: NUTRISOURCE FIBER 4 GM PACKET GT SCH ×3 (05:28→22:07)
[2023-07-02] MEDS: JEVITY 1.2 1000 ML LIQUID GT PRN (05:30)
[2023-07-02] MEDS: levETIRAcetam 500 MG/5 ML LIQUID UDC GT SCH ×2 (08:28→20:34)
[2023-07-02] MEDS: DOCUSATE SODIUM 100 MG/10 ML LIQUID UDC GT SCH ×2 (08:28→20:34)
[2023-07-02] MEDS: CLOBAZAM 10 MG TABLET GT SCH ×2 (08:29→20:34)
[2023-07-02] MEDS: GEMFIBROZIL 600 MG TABLET GT SCH ×2 (08:29→17:37)
[2023-07-02] MEDS: PROTEIN SUPPLEMENT (PROSTAT) 30 ML LIQUID GT SCH ×2 (08:29→20:34)
[2023-07-02] MEDS: LACOSAMIDE 100 MG/10 ML UDC GT SCH ×2 (08:30→20:34)
[2023-07-02] MEDS: REMEDY ESSENTIAL ZINC PASTE 113 GM TOP SCH ×2 (08:30→20:34)
[2023-07-02 08:33] VITALS: TEMP 97.6
[2023-07-02] MEDS: HYDROGEN PEROXIDE 3% 118 ML BOTTLE TP SCH ×2 (09:35→19:00)
[2023-07-02 19:59] VITALS: TEMP 96
[2023-07-03] MEDS: IPRATROPIUM BROMIDE 0.5 MG/2.5 ML NEBU NEB SCH ×4 (00:55→19:10)
[2023-07-03] MEDS: ALBUTEROL SULFATE 1.25 MG/3 ML NEBU NEB SCH ×4 (00:55→19:11)
[2023-07-03] MEDS: POLYVINYL ALCOHOL OPHT DROPS 15 ML BOTTLE EACHEYE SCH ×6 (02:00→22:33)
[2023-07-03] MEDS: JEVITY 1.2 1000 ML LIQUID GT PRN (03:22)
[2023-07-03] MEDS: NUTRISOURCE FIBER 4 GM PACKET GT SCH ×3 (05:20→22:33)
[2023-07-03] MEDS: MINERAL OIL/PETROLAT OPHT OINT 3.5 GM TUBE EACHEYE SCH ×3 (05:20→22:33)
[2023-07-03 08:00] VITALS: TEMP 97.6
[2023-07-03] MEDS: DOCUSATE SODIUM 100 MG/10 ML LIQUID UDC GT SCH ×2 (08:20→20:47)
[2023-07-03] MEDS: levETIRAcetam 500 MG/5 ML LIQUID UDC GT SCH ×2 (08:20→20:47)
[2023-07-03] MEDS: PROTEIN SUPPLEMENT (PROSTAT) 30 ML LIQUID GT SCH ×2 (08:21→20:47)
[2023-07-03] MEDS: CLOBAZAM 10 MG TABLET GT SCH ×2 (08:21→20:47)
[2023-07-03] MEDS: BISACODYL 10 MG SUPP.RECT RC SCH (08:21)
[2023-07-03] MEDS: LACOSAMIDE 100 MG/10 ML UDC GT SCH ×2 (08:21→20:47)
[2023-07-03] MEDS: GEMFIBROZIL 600 MG TABLET GT SCH ×2 (08:21→17:40)
[2023-07-03] MEDS: REMEDY ESSENTIAL ZINC PASTE 113 GM TOP SCH ×2 (08:22→20:47)
[2023-07-03] MEDS: HYDROGEN PEROXIDE 3% 118 ML BOTTLE TP SCH ×2 (09:56→19:11)
[2023-07-03 20:00] VITALS: TEMP 97
[2023-07-04] MEDS: IPRATROPIUM BROMIDE 0.5 MG/2.5 ML NEBU NEB SCH ×4 (00:37→18:55)
[2023-07-04] MEDS: ALBUTEROL SULFATE 1.25 MG/3 ML NEBU NEB SCH ×4 (00:37→18:55)
[2023-07-04] MEDS: POLYVINYL ALCOHOL OPHT DROPS 15 ML BOTTLE EACHEYE SCH ×6 (02:00→21:24)
[2023-07-04] MEDS: NUTRISOURCE FIBER 4 GM PACKET GT SCH ×3 (05:43→21:24)
[2023-07-04] MEDS: MINERAL OIL/PETROLAT OPHT OINT 3.5 GM TUBE EACHEYE SCH ×3 (05:43→21:24)
[2023-07-04] MEDS: HYDROGEN PEROXIDE 3% 118 ML BOTTLE TP SCH ×2 (07:19→18:55)
[2023-07-04 08:00] VITALS: TEMP 97.8
[2023-07-04] MEDS: REMEDY ESSENTIAL ZINC PASTE 113 GM TOP SCH ×2 (09:00→21:24)
[2023-07-04] MEDS: DOCUSATE SODIUM 100 MG/10 ML LIQUID UDC GT SCH ×2 (09:39→21:24)
[2023-07-04] MEDS: levETIRAcetam 500 MG/5 ML LIQUID UDC GT SCH ×2 (09:40→21:24)
[2023-07-04] MEDS: GEMFIBROZIL 600 MG TABLET GT SCH ×2 (09:41→17:22)
[2023-07-04] MEDS: CLOBAZAM 10 MG TABLET GT SCH ×2 (09:50→21:00)
[2023-07-04] MEDS: LACOSAMIDE 100 MG/10 ML UDC GT SCH ×2 (09:50→21:00)
[2023-07-04] MEDS: PROTEIN SUPPLEMENT (PROSTAT) 30 ML LIQUID GT SCH ×2 (09:50→21:24)
[2023-07-04 20:00] VITALS: TEMP 98.8
[2023-07-04] MEDS: JEVITY 1.2 1000 ML LIQUID GT PRN (20:10)
[2023-07-05] MEDS: ALBUTEROL SULFATE 1.25 MG/3 ML NEBU NEB SCH ×4 (00:49→20:14)
[2023-07-05] MEDS: IPRATROPIUM BROMIDE 0.5 MG/2.5 ML NEBU NEB SCH ×4 (00:49→20:14)
[2023-07-05] MEDS: POLYVINYL ALCOHOL OPHT DROPS 15 ML BOTTLE EACHEYE SCH ×6 (02:00→21:19)
[2023-07-05] MEDS: MINERAL OIL/PETROLAT OPHT OINT 3.5 GM TUBE EACHEYE SCH ×3 (05:45→21:19)
[2023-07-05] MEDS: NUTRISOURCE FIBER 4 GM PACKET GT SCH ×3 (05:45→21:33)
[2023-07-05 08:00] VITALS: TEMP 97.3
[2023-07-05] MEDS: DOCUSATE SODIUM 100 MG/10 ML LIQUID UDC GT SCH ×2 (08:56→21:17)
[2023-07-05] MEDS: levETIRAcetam 500 MG/5 ML LIQUID UDC GT SCH ×2 (08:57→21:17)
[2023-07-05] MEDS: GEMFIBROZIL 600 MG TABLET GT SCH ×2 (08:58→17:06)
[2023-07-05] MEDS: BISACODYL 10 MG SUPP.RECT RC SCH (08:59)
[2023-07-05] MEDS: REMEDY ESSENTIAL ZINC PASTE 113 GM TOP SCH ×2 (08:59→21:17)
[2023-07-05] MEDS: PROTEIN SUPPLEMENT (PROSTAT) 30 ML LIQUID GT SCH ×2 (08:59→21:17)
[2023-07-05] MEDS: LACOSAMIDE 100 MG/10 ML UDC GT SCH ×2 (09:11→21:17)
[2023-07-05] MEDS: CLOBAZAM 10 MG TABLET GT SCH ×2 (09:11→21:17)
[2023-07-05] MEDS: HYDROGEN PEROXIDE 3% 118 ML BOTTLE TP SCH ×2 (09:14→20:14)
[2023-07-05 20:00] VITALS: TEMP 97.8
[2023-07-06] MEDS: JEVITY 1.2 1000 ML LIQUID GT PRN (01:32)
[2023-07-06] MEDS: ALBUTEROL SULFATE 1.25 MG/3 ML NEBU NEB SCH ×4 (01:50→19:52)
[2023-07-06] MEDS: IPRATROPIUM BROMIDE 0.5 MG/2.5 ML NEBU NEB SCH ×4 (01:50→19:52)
[2023-07-06] MEDS: POLYVINYL ALCOHOL OPHT DROPS 15 ML BOTTLE EACHEYE SCH ×6 (02:15→22:02)
[2023-07-06] MEDS: MINERAL OIL/PETROLAT OPHT OINT 3.5 GM TUBE EACHEYE SCH ×3 (05:35→22:02)
[2023-07-06] MEDS: NUTRISOURCE FIBER 4 GM PACKET GT SCH ×3 (05:35→22:02)
[2023-07-06 08:08] VITALS: TEMP 97.6
[2023-07-06] MEDS: REMEDY ESSENTIAL ZINC PASTE 113 GM TOP SCH ×2 (09:00→20:24)
[2023-07-06] MEDS: GEMFIBROZIL 600 MG TABLET GT SCH ×2 (09:00→17:52)
[2023-07-06] MEDS: DOCUSATE SODIUM 100 MG/10 ML LIQUID UDC GT SCH ×2 (09:00→20:24)
[2023-07-06] MEDS: levETIRAcetam 500 MG/5 ML LIQUID UDC GT SCH ×2 (09:00→20:24)
[2023-07-06] MEDS: PROTEIN SUPPLEMENT (PROSTAT) 30 ML LIQUID GT SCH ×2 (09:00→20:24)
[2023-07-06] MEDS: HYDROGEN PEROXIDE 3% 118 ML BOTTLE TP SCH ×2 (09:34→19:52)
[2023-07-06] MEDS: LACOSAMIDE 100 MG/10 ML UDC GT SCH ×2 (10:00→20:24)
[2023-07-06] MEDS: CLOBAZAM 10 MG TABLET GT SCH ×2 (10:00→20:24)
[2023-07-06 20:00] VITALS: TEMP 97.4
[2023-07-07] MEDS: ALBUTEROL SULFATE 1.25 MG/3 ML NEBU NEB SCH ×4 (01:59→19:12)
[2023-07-07] MEDS: IPRATROPIUM BROMIDE 0.5 MG/2.5 ML NEBU NEB SCH ×4 (01:59→19:12)
[2023-07-07] MEDS: POLYVINYL ALCOHOL OPHT DROPS 15 ML BOTTLE EACHEYE SCH ×6 (02:40→21:09)
[2023-07-07] MEDS: JEVITY 1.2 1000 ML LIQUID GT PRN (02:40)
[2023-07-07] MEDS: NUTRISOURCE FIBER 4 GM PACKET GT SCH ×3 (06:34→21:10)
[2023-07-07] MEDS: MINERAL OIL/PETROLAT OPHT OINT 3.5 GM TUBE EACHEYE SCH ×3 (06:34→21:10)
[2023-07-07 07:48] VITALS: TEMP 97.9
[2023-07-07] MEDS: CLOBAZAM 10 MG TABLET GT SCH ×2 (08:13→20:55)
[2023-07-07] MEDS: DOCUSATE SODIUM 100 MG/10 ML LIQUID UDC GT SCH ×2 (08:13→20:52)
[2023-07-07] MEDS: levETIRAcetam 500 MG/5 ML LIQUID UDC GT SCH ×2 (08:13→20:53)
[2023-07-07] MEDS: GEMFIBROZIL 600 MG TABLET GT SCH ×2 (08:13→17:21)
[2023-07-07] MEDS: LACOSAMIDE 100 MG/10 ML UDC GT SCH ×2 (08:13→20:55)
[2023-07-07] MEDS: PROTEIN SUPPLEMENT (PROSTAT) 30 ML LIQUID GT SCH ×2 (08:13→20:53)
[2023-07-07] MEDS: REMEDY ESSENTIAL ZINC PASTE 113 GM TOP SCH ×2 (08:14→20:53)
[2023-07-07] MEDS: HYDROGEN PEROXIDE 3% 118 ML BOTTLE TP SCH ×2 (09:48→19:12)
[2023-07-07 20:30] VITALS: TEMP 97.5
[2023-07-08] MEDS: ALBUTEROL SULFATE 1.25 MG/3 ML NEBU NEB SCH ×4 (00:36→19:16)
[2023-07-08] MEDS: IPRATROPIUM BROMIDE 0.5 MG/2.5 ML NEBU NEB SCH ×4 (00:36→19:16)
[2023-07-08] MEDS: POLYVINYL ALCOHOL OPHT DROPS 15 ML BOTTLE EACHEYE SCH ×6 (02:41→22:12)
[2023-07-08] MEDS: MINERAL OIL/PETROLAT OPHT OINT 3.5 GM TUBE EACHEYE SCH ×3 (06:26→22:12)
[2023-07-08] MEDS: NUTRISOURCE FIBER 4 GM PACKET GT SCH ×3 (06:26→22:12)
[2023-07-08 08:05] VITALS: TEMP 97.5
[2023-07-08] MEDS: levETIRAcetam 500 MG/5 ML LIQUID UDC GT SCH ×2 (08:42→20:36)
[2023-07-08] MEDS: DOCUSATE SODIUM 100 MG/10 ML LIQUID UDC GT SCH ×2 (08:42→20:36)
[2023-07-08] MEDS: GEMFIBROZIL 600 MG TABLET GT SCH ×2 (08:43→17:17)
[2023-07-08] MEDS: LACOSAMIDE 100 MG/10 ML UDC GT SCH ×2 (08:43→20:36)
[2023-07-08] MEDS: CLOBAZAM 10 MG TABLET GT SCH ×2 (08:43→20:36)
[2023-07-08] MEDS: PROTEIN SUPPLEMENT (PROSTAT) 30 ML LIQUID GT SCH ×2 (08:43→20:36)
[2023-07-08] MEDS: REMEDY ESSENTIAL ZINC PASTE 113 GM TOP SCH ×2 (08:44→20:36)
[2023-07-08] MEDS: BISACODYL 10 MG SUPP.RECT RC SCH (08:44)
[2023-07-08] MEDS: HYDROGEN PEROXIDE 3% 118 ML BOTTLE TP SCH ×2 (09:21→19:16)
[2023-07-08 20:07] VITALS: TEMP 97.3
[2023-07-09] MEDS: IPRATROPIUM BROMIDE 0.5 MG/2.5 ML NEBU NEB SCH ×4 (01:50→19:06)
[2023-07-09] MEDS: ALBUTEROL SULFATE 1.25 MG/3 ML NEBU NEB SCH ×4 (01:50→19:06)
[2023-07-09] MEDS: POLYVINYL ALCOHOL OPHT DROPS 15 ML BOTTLE EACHEYE SCH ×6 (02:47→22:21)
[2023-07-09] MEDS: JEVITY 1.2 1000 ML LIQUID GT PRN (04:48)
[2023-07-09] MEDS: MINERAL OIL/PETROLAT OPHT OINT 3.5 GM TUBE EACHEYE SCH ×3 (05:48→22:21)
[2023-07-09] MEDS: NUTRISOURCE FIBER 4 GM PACKET GT SCH ×3 (05:48→22:21)
[2023-07-09 07:28] VITALS: TEMP 98.3
[2023-07-09] MEDS: DOCUSATE SODIUM 100 MG/10 ML LIQUID UDC GT SCH ×2 (08:54→20:52)
[2023-07-09] MEDS: levETIRAcetam 500 MG/5 ML LIQUID UDC GT SCH ×2 (08:54→20:52)
[2023-07-09] MEDS: GEMFIBROZIL 600 MG TABLET GT SCH ×2 (08:56→16:51)
[2023-07-09] MEDS: HYDROGEN PEROXIDE 3% 118 ML BOTTLE TP SCH ×2 (08:57→19:06)
[2023-07-09] MEDS: CLOBAZAM 10 MG TABLET GT SCH ×2 (09:00→20:52)
[2023-07-09] MEDS: LACOSAMIDE 100 MG/10 ML UDC GT SCH ×2 (09:00→20:52)
[2023-07-09] MEDS: PROTEIN SUPPLEMENT (PROSTAT) 30 ML LIQUID GT SCH ×2 (09:00→20:52)
[2023-07-09] MEDS: REMEDY ESSENTIAL ZINC PASTE 113 GM TOP SCH ×2 (09:01→20:52)
[2023-07-09 20:13] VITALS: TEMP 97.5
[2023-07-10] MEDS: ALBUTEROL SULFATE 1.25 MG/3 ML NEBU NEB SCH ×4 (00:47→19:02)
[2023-07-10] MEDS: IPRATROPIUM BROMIDE 0.5 MG/2.5 ML NEBU NEB SCH ×4 (00:47→19:02)
[2023-07-10] MEDS: POLYVINYL ALCOHOL OPHT DROPS 15 ML BOTTLE EACHEYE SCH ×6 (02:00→21:03)
[2023-07-10] MEDS: MINERAL OIL/PETROLAT OPHT OINT 3.5 GM TUBE EACHEYE SCH ×3 (05:10→21:03)
[2023-07-10] MEDS: NUTRISOURCE FIBER 4 GM PACKET GT SCH ×3 (05:11→21:03)
[2023-07-10 07:21] VITALS: TEMP 97.4
[2023-07-10] MEDS: DOCUSATE SODIUM 100 MG/10 ML LIQUID UDC GT SCH ×2 (08:13→21:02)
[2023-07-10] MEDS: levETIRAcetam 500 MG/5 ML LIQUID UDC GT SCH ×2 (08:15→21:02)
[2023-07-10] MEDS: GEMFIBROZIL 600 MG TABLET GT SCH ×2 (08:15→17:00)
[2023-07-10] MEDS: CLOBAZAM 10 MG TABLET GT SCH ×2 (08:26→21:02)
[2023-07-10] MEDS: PROTEIN SUPPLEMENT (PROSTAT) 30 ML LIQUID GT SCH ×2 (08:26→21:02)
[2023-07-10] MEDS: REMEDY ESSENTIAL ZINC PASTE 113 GM TOP SCH ×2 (08:26→21:03)
[2023-07-10] MEDS: LACOSAMIDE 100 MG/10 ML UDC GT SCH ×2 (08:26→21:02)
[2023-07-10] MEDS: BISACODYL 10 MG SUPP.RECT RC SCH (09:00)
[2023-07-10] MEDS: HYDROGEN PEROXIDE 3% 118 ML BOTTLE TP SCH ×2 (09:58→20:54)
[2023-07-10] MEDS: JEVITY 1.2 1000 ML LIQUID GT PRN (13:29)
[2023-07-10 19:58] VITALS: TEMP 97.2
[2023-07-11] MEDS: ALBUTEROL SULFATE 1.25 MG/3 ML NEBU NEB SCH ×4 (01:08→20:06)
[2023-07-11] MEDS: IPRATROPIUM BROMIDE 0.5 MG/2.5 ML NEBU NEB SCH ×4 (01:08→20:06)
[2023-07-11] MEDS: POLYVINYL ALCOHOL OPHT DROPS 15 ML BOTTLE EACHEYE SCH ×6 (02:00→21:16)
[2023-07-11] MEDS: MINERAL OIL/PETROLAT OPHT OINT 3.5 GM TUBE EACHEYE SCH ×3 (05:26→21:16)
[2023-07-11] MEDS: NUTRISOURCE FIBER 4 GM PACKET GT SCH ×3 (05:26→21:16)
[2023-07-11 07:53] VITALS: TEMP 97.3
[2023-07-11] MEDS: HYDROGEN PEROXIDE 3% 118 ML BOTTLE TP SCH ×2 (08:08→20:06)
[2023-07-11] MEDS: DOCUSATE SODIUM 100 MG/10 ML LIQUID UDC GT SCH ×2 (08:59→21:16)
[2023-07-11] MEDS: GEMFIBROZIL 600 MG TABLET GT SCH ×2 (09:00→16:16)
[2023-07-11] MEDS: CLOBAZAM 10 MG TABLET GT SCH ×2 (09:00→21:16)
[2023-07-11] MEDS: levETIRAcetam 500 MG/5 ML LIQUID UDC GT SCH ×2 (09:00→21:16)
[2023-07-11] MEDS: REMEDY ESSENTIAL ZINC PASTE 113 GM TOP SCH ×2 (09:01→21:16)
[2023-07-11] MEDS: LACOSAMIDE 100 MG/10 ML UDC GT SCH ×2 (09:01→21:16)
[2023-07-11] MEDS: PROTEIN SUPPLEMENT (PROSTAT) 30 ML LIQUID GT SCH ×2 (09:01→21:16)
[2023-07-11] MEDS: JEVITY 1.2 1000 ML LIQUID GT PRN (16:17)
[2023-07-11 20:14] VITALS: TEMP 97.1
[2023-07-12] MEDS: ALBUTEROL SULFATE 1.25 MG/3 ML NEBU NEB SCH ×4 (01:30→19:11)
[2023-07-12] MEDS: IPRATROPIUM BROMIDE 0.5 MG/2.5 ML NEBU NEB SCH ×4 (01:30→19:11)
[2023-07-12] MEDS: POLYVINYL ALCOHOL OPHT DROPS 15 ML BOTTLE EACHEYE SCH ×6 (02:00→21:24)
[2023-07-12] MEDS: NUTRISOURCE FIBER 4 GM PACKET GT SCH ×3 (05:42→21:24)
[2023-07-12] MEDS: MINERAL OIL/PETROLAT OPHT OINT 3.5 GM TUBE EACHEYE SCH ×3 (05:42→21:24)
[2023-07-12 07:51] VITALS: TEMP 97.5
[2023-07-12] MEDS: HYDROGEN PEROXIDE 3% 118 ML BOTTLE TP SCH ×2 (08:07→19:11)
[2023-07-12] MEDS: DOCUSATE SODIUM 100 MG/10 ML LIQUID UDC GT SCH ×2 (08:14→20:51)
[2023-07-12] MEDS: GEMFIBROZIL 600 MG TABLET GT SCH ×2 (08:14→17:38)
[2023-07-12] MEDS: CLOBAZAM 10 MG TABLET GT SCH ×2 (08:14→20:51)
[2023-07-12] MEDS: levETIRAcetam 500 MG/5 ML LIQUID UDC GT SCH ×2 (08:14→20:51)
[2023-07-12] MEDS: BISACODYL 10 MG SUPP.RECT RC SCH (08:15)
[2023-07-12] MEDS: PROTEIN SUPPLEMENT (PROSTAT) 30 ML LIQUID GT SCH ×2 (08:15→20:51)
[2023-07-12] MEDS: REMEDY ESSENTIAL ZINC PASTE 113 GM TOP SCH ×2 (08:15→20:51)
[2023-07-12] MEDS: LACOSAMIDE 100 MG/10 ML UDC GT SCH ×2 (08:15→20:51)
[2023-07-12] MEDS: JEVITY 1.2 1000 ML LIQUID GT PRN (17:38)
[2023-07-12 19:46] VITALS: TEMP 98.3
[2023-07-13] MEDS: ALBUTEROL SULFATE 1.25 MG/3 ML NEBU NEB SCH ×4 (01:26→19:09)
[2023-07-13] MEDS: IPRATROPIUM BROMIDE 0.5 MG/2.5 ML NEBU NEB SCH ×4 (01:26→19:09)
[2023-07-13] MEDS: POLYVINYL ALCOHOL OPHT DROPS 15 ML BOTTLE EACHEYE SCH ×6 (02:00→22:00)
[2023-07-13] MEDS: MINERAL OIL/PETROLAT OPHT OINT 3.5 GM TUBE EACHEYE SCH ×3 (05:06→22:00)
[2023-07-13] MEDS: NUTRISOURCE FIBER 4 GM PACKET GT SCH ×3 (05:06→22:00)
[2023-07-13 07:46] VITALS: TEMP 97.1
[2023-07-13] MEDS: HYDROGEN PEROXIDE 3% 118 ML BOTTLE TP SCH ×2 (08:33→19:09)
[2023-07-13] MEDS: DOCUSATE SODIUM 100 MG/10 ML LIQUID UDC GT SCH ×2 (09:34→21:00)
[2023-07-13] MEDS: levETIRAcetam 500 MG/5 ML LIQUID UDC GT SCH ×2 (09:35→21:00)
[2023-07-13] MEDS: GEMFIBROZIL 600 MG TABLET GT SCH ×2 (09:36→17:29)
[2023-07-13] MEDS: PROTEIN SUPPLEMENT (PROSTAT) 30 ML LIQUID GT SCH ×2 (09:42→21:00)
[2023-07-13] MEDS: CLOBAZAM 10 MG TABLET GT SCH ×2 (09:42→21:00)
[2023-07-13] MEDS: REMEDY ESSENTIAL ZINC PASTE 113 GM TOP SCH ×2 (09:43→21:00)
[2023-07-13] MEDS: LACOSAMIDE 100 MG/10 ML UDC GT SCH ×2 (09:43→21:00)
[2023-07-13 20:24] VITALS: TEMP 98
[2023-07-14] MEDS: ALBUTEROL SULFATE 1.25 MG/3 ML NEBU NEB SCH ×4 (01:01→19:30)
[2023-07-14] MEDS: IPRATROPIUM BROMIDE 0.5 MG/2.5 ML NEBU NEB SCH ×4 (01:01→19:30)
[2023-07-14] MEDS: POLYVINYL ALCOHOL OPHT DROPS 15 ML BOTTLE EACHEYE SCH ×6 (02:00→21:45)
[2023-07-14] MEDS: MINERAL OIL/PETROLAT OPHT OINT 3.5 GM TUBE EACHEYE SCH ×3 (06:00→21:45)
[2023-07-14] MEDS: NUTRISOURCE FIBER 4 GM PACKET GT SCH ×3 (06:03→21:45)
[2023-07-14 08:00] VITALS: TEMP 97.6
[2023-07-14] MEDS: levETIRAcetam 500 MG/5 ML LIQUID UDC GT SCH ×2 (09:05→20:44)
[2023-07-14] MEDS: DOCUSATE SODIUM 100 MG/10 ML LIQUID UDC GT SCH ×2 (09:05→20:43)
[2023-07-14] MEDS: GEMFIBROZIL 600 MG TABLET GT SCH ×2 (09:06→17:04)
[2023-07-14] MEDS: CLOBAZAM 10 MG TABLET GT SCH ×2 (09:06→20:51)
[2023-07-14] MEDS: LACOSAMIDE 100 MG/10 ML UDC GT SCH ×2 (09:07→20:51)
[2023-07-14] MEDS: REMEDY ESSENTIAL ZINC PASTE 113 GM TOP SCH ×2 (09:07→20:44)
[2023-07-14] MEDS: PROTEIN SUPPLEMENT (PROSTAT) 30 ML LIQUID GT SCH ×2 (09:07→20:44)
[2023-07-14] MEDS: HYDROGEN PEROXIDE 3% 118 ML BOTTLE TP SCH ×2 (09:55→21:12)
[2023-07-14 20:00] VITALS: TEMP 97
[2023-07-15] MEDS: ALBUTEROL SULFATE 1.25 MG/3 ML NEBU NEB SCH ×4 (01:44→19:07)
[2023-07-15] MEDS: IPRATROPIUM BROMIDE 0.5 MG/2.5 ML NEBU NEB SCH ×4 (01:44→19:07)
[2023-07-15] MEDS: POLYVINYL ALCOHOL OPHT DROPS 15 ML BOTTLE EACHEYE SCH ×6 (02:00→20:35)
[2023-07-15] MEDS: NUTRISOURCE FIBER 4 GM PACKET GT SCH ×3 (05:14→22:19)
[2023-07-15] MEDS: MINERAL OIL/PETROLAT OPHT OINT 3.5 GM TUBE EACHEYE SCH ×3 (05:14→22:19)
[2023-07-15] MEDS: JEVITY 1.2 1000 ML LIQUID GT PRN (05:30)
[2023-07-15 07:32] VITALS: TEMP 97.6
[2023-07-15] MEDS: levETIRAcetam 500 MG/5 ML LIQUID UDC GT SCH ×2 (08:43→20:35)
[2023-07-15] MEDS: DOCUSATE SODIUM 100 MG/10 ML LIQUID UDC GT SCH ×2 (08:43→20:35)
[2023-07-15] MEDS: GEMFIBROZIL 600 MG TABLET GT SCH ×2 (08:44→17:49)
[2023-07-15] MEDS: PROTEIN SUPPLEMENT (PROSTAT) 30 ML LIQUID GT SCH ×2 (08:45→20:35)
[2023-07-15] MEDS: REMEDY ESSENTIAL ZINC PASTE 113 GM TOP SCH ×2 (08:45→20:35)
[2023-07-15] MEDS: BISACODYL 10 MG SUPP.RECT RC SCH (08:45)
[2023-07-15] MEDS: HYDROGEN PEROXIDE 3% 118 ML BOTTLE TP SCH ×2 (08:47→19:07)
[2023-07-15] MEDS: LACOSAMIDE 100 MG/10 ML UDC GT SCH ×2 (08:51→20:42)
[2023-07-15] MEDS: CLOBAZAM 10 MG TABLET GT SCH ×2 (08:51→20:42)
[2023-07-15 20:01] VITALS: TEMP 97.2
[2023-07-16] MEDS: POLYVINYL ALCOHOL OPHT DROPS 15 ML BOTTLE EACHEYE SCH ×6 (02:00→22:19)
[2023-07-16] MEDS: IPRATROPIUM BROMIDE 0.5 MG/2.5 ML NEBU NEB SCH ×4 (02:07→19:07)
[2023-07-16] MEDS: ALBUTEROL SULFATE 1.25 MG/3 ML NEBU NEB SCH ×4 (02:07→19:07)
[2023-07-16] MEDS: NUTRISOURCE FIBER 4 GM PACKET GT SCH ×3 (05:28→22:19)
[2023-07-16] MEDS: JEVITY 1.2 1000 ML LIQUID GT PRN (05:28)
[2023-07-16] MEDS: MINERAL OIL/PETROLAT OPHT OINT 3.5 GM TUBE EACHEYE SCH ×3 (05:28→22:19)
[2023-07-16] MEDS: HYDROGEN PEROXIDE 3% 118 ML BOTTLE TP SCH ×2 (07:20→19:08)
[2023-07-16] MEDS: DOCUSATE SODIUM 100 MG/10 ML LIQUID UDC GT SCH ×2 (08:30→20:48)
[2023-07-16] MEDS: levETIRAcetam 500 MG/5 ML LIQUID UDC GT SCH ×2 (08:31→20:48)
[2023-07-16] MEDS: GEMFIBROZIL 600 MG TABLET GT SCH ×2 (08:32→17:17)
[2023-07-16] MEDS: REMEDY ESSENTIAL ZINC PASTE 113 GM TOP SCH ×2 (08:32→20:50)
[2023-07-16] MEDS: PROTEIN SUPPLEMENT (PROSTAT) 30 ML LIQUID GT SCH ×2 (08:32→20:49)
[2023-07-16] MEDS: LACOSAMIDE 100 MG/10 ML UDC GT SCH ×2 (08:44→20:50)
[2023-07-16] MEDS: CLOBAZAM 10 MG TABLET GT SCH ×2 (08:44→20:49)
[2023-07-16 08:48] VITALS: TEMP 98
[2023-07-16 20:00] VITALS: TEMP 97.4
[2023-07-17] MEDS: IPRATROPIUM BROMIDE 0.5 MG/2.5 ML NEBU NEB SCH ×4 (00:41→19:23)
[2023-07-17] MEDS: ALBUTEROL SULFATE 1.25 MG/3 ML NEBU NEB SCH ×4 (00:41→19:23)
[2023-07-17] MEDS: POLYVINYL ALCOHOL OPHT DROPS 15 ML BOTTLE EACHEYE SCH ×6 (02:00→22:23)
[2023-07-17] MEDS: MINERAL OIL/PETROLAT OPHT OINT 3.5 GM TUBE EACHEYE SCH ×3 (05:14→22:23)
[2023-07-17] MEDS: NUTRISOURCE FIBER 4 GM PACKET GT SCH ×3 (05:14→22:23)
[2023-07-17 08:00] VITALS: TEMP 97.8
[2023-07-17] MEDS: DOCUSATE SODIUM 100 MG/10 ML LIQUID UDC GT SCH ×2 (09:07→20:16)
[2023-07-17] MEDS: levETIRAcetam 500 MG/5 ML LIQUID UDC GT SCH ×2 (09:09→20:17)
[2023-07-17] MEDS: GEMFIBROZIL 600 MG TABLET GT SCH ×2 (09:09→17:01)
[2023-07-17] MEDS: REMEDY ESSENTIAL ZINC PASTE 113 GM TOP SCH ×2 (09:10→20:18)
[2023-07-17] MEDS: BISACODYL 10 MG SUPP.RECT RC SCH (09:10)
[2023-07-17] MEDS: CLOBAZAM 10 MG TABLET GT SCH ×2 (09:17→20:18)
[2023-07-17] MEDS: LACOSAMIDE 100 MG/10 ML UDC GT SCH ×2 (09:17→20:18)
[2023-07-17] MEDS: PROTEIN SUPPLEMENT (PROSTAT) 30 ML LIQUID GT SCH ×2 (09:17→20:18)
[2023-07-17] MEDS: HYDROGEN PEROXIDE 3% 118 ML BOTTLE TP SCH ×2 (09:19→19:23)
[2023-07-17] MEDS: JEVITY 1.2 1000 ML LIQUID GT PRN (13:56)
[2023-07-17 20:05] VITALS: TEMP 97.4
[2023-07-18] MEDS: ALBUTEROL SULFATE 1.25 MG/3 ML NEBU NEB SCH ×4 (00:39→19:08)
[2023-07-18] MEDS: IPRATROPIUM BROMIDE 0.5 MG/2.5 ML NEBU NEB SCH ×4 (00:39→19:08)
[2023-07-18] MEDS: POLYVINYL ALCOHOL OPHT DROPS 15 ML BOTTLE EACHEYE SCH ×6 (01:35→22:28)
[2023-07-18] MEDS: NUTRISOURCE FIBER 4 GM PACKET GT SCH ×3 (05:26→22:28)
[2023-07-18] MEDS: MINERAL OIL/PETROLAT OPHT OINT 3.5 GM TUBE EACHEYE SCH ×3 (05:26→22:28)
[2023-07-18] MEDS: HYDROGEN PEROXIDE 3% 118 ML BOTTLE TP SCH ×2 (07:31→19:09)
[2023-07-18 07:46] VITALS: TEMP 97
[2023-07-18] MEDS: DOCUSATE SODIUM 100 MG/10 ML LIQUID UDC GT SCH ×2 (08:40→20:12)
[2023-07-18] MEDS: levETIRAcetam 500 MG/5 ML LIQUID UDC GT SCH ×2 (08:42→20:13)
[2023-07-18] MEDS: GEMFIBROZIL 600 MG TABLET GT SCH ×2 (08:44→16:17)
[2023-07-18] MEDS: PROTEIN SUPPLEMENT (PROSTAT) 30 ML LIQUID GT SCH ×2 (08:45→20:14)
[2023-07-18] MEDS: CLOBAZAM 10 MG TABLET GT SCH ×2 (08:53→20:14)
[2023-07-18] MEDS: REMEDY ESSENTIAL ZINC PASTE 113 GM TOP SCH ×2 (08:54→20:15)
[2023-07-18] MEDS: LACOSAMIDE 100 MG/10 ML UDC GT SCH ×2 (08:54→20:15)
[2023-07-18 20:00] VITALS: TEMP 97.3
[2023-07-19] MEDS: ALBUTEROL SULFATE 1.25 MG/3 ML NEBU NEB SCH ×4 (00:40→19:03)
[2023-07-19] MEDS: IPRATROPIUM BROMIDE 0.5 MG/2.5 ML NEBU NEB SCH ×4 (00:40→19:03)
[2023-07-19] MEDS: POLYVINYL ALCOHOL OPHT DROPS 15 ML BOTTLE EACHEYE SCH ×6 (02:00→21:13)
[2023-07-19] MEDS: NUTRISOURCE FIBER 4 GM PACKET GT SCH ×3 (05:28→21:13)
[2023-07-19] MEDS: MINERAL OIL/PETROLAT OPHT OINT 3.5 GM TUBE EACHEYE SCH ×3 (05:28→21:13)
[2023-07-19] MEDS: HYDROGEN PEROXIDE 3% 118 ML BOTTLE TP SCH ×2 (07:28→21:00)
[2023-07-19 07:52] VITALS: TEMP 97
[2023-07-19] MEDS: DOCUSATE SODIUM 100 MG/10 ML LIQUID UDC GT SCH ×2 (09:32→21:12)
[2023-07-19] MEDS: levETIRAcetam 500 MG/5 ML LIQUID UDC GT SCH ×2 (09:33→21:14)
[2023-07-19] MEDS: GEMFIBROZIL 600 MG TABLET GT SCH ×2 (09:33→17:13)
[2023-07-19] MEDS: PROTEIN SUPPLEMENT (PROSTAT) 30 ML LIQUID GT SCH ×2 (09:34→21:13)
[2023-07-19] MEDS: REMEDY ESSENTIAL ZINC PASTE 113 GM TOP SCH ×2 (09:34→21:13)
[2023-07-19] MEDS: BISACODYL 10 MG SUPP.RECT RC SCH (09:34)
[2023-07-19] MEDS: CLOBAZAM 10 MG TABLET GT SCH ×2 (09:39→21:30)
[2023-07-19] MEDS: LACOSAMIDE 100 MG/10 ML UDC GT SCH ×2 (09:39→21:30)
[2023-07-19] MEDS: JEVITY 1.2 1000 ML LIQUID GT PRN (12:58)
[2023-07-19 20:00] VITALS: TEMP 97
[2023-07-20] MEDS: ALBUTEROL SULFATE 1.25 MG/3 ML NEBU NEB SCH ×4 (01:11→19:14)
[2023-07-20] MEDS: IPRATROPIUM BROMIDE 0.5 MG/2.5 ML NEBU NEB SCH ×4 (01:11→19:14)
[2023-07-20] MEDS: POLYVINYL ALCOHOL OPHT DROPS 15 ML BOTTLE EACHEYE SCH ×6 (02:00→21:42)
[2023-07-20] MEDS: NUTRISOURCE FIBER 4 GM PACKET GT SCH ×3 (05:19→21:42)
[2023-07-20] MEDS: MINERAL OIL/PETROLAT OPHT OINT 3.5 GM TUBE EACHEYE SCH ×3 (05:19→21:42)
[2023-07-20 08:00] VITALS: TEMP 97.5
[2023-07-20] MEDS: HYDROGEN PEROXIDE 3% 118 ML BOTTLE TP SCH ×2 (08:15→19:14)
[2023-07-20] MEDS: DOCUSATE SODIUM 100 MG/10 ML LIQUID UDC GT SCH ×2 (08:46→21:41)
[2023-07-20] MEDS: levETIRAcetam 500 MG/5 ML LIQUID UDC GT SCH ×2 (08:47→21:41)
[2023-07-20] MEDS: CLOBAZAM 10 MG TABLET GT SCH ×2 (08:48→21:00)
[2023-07-20] MEDS: GEMFIBROZIL 600 MG TABLET GT SCH ×2 (08:48→17:05)
[2023-07-20] MEDS: PROTEIN SUPPLEMENT (PROSTAT) 30 ML LIQUID GT SCH ×2 (08:49→21:42)
[2023-07-20] MEDS: LACOSAMIDE 100 MG/10 ML UDC GT SCH ×2 (08:49→21:00)
[2023-07-20] MEDS: REMEDY ESSENTIAL ZINC PASTE 113 GM TOP SCH ×2 (08:49→21:42)
[2023-07-21] MEDS: ALBUTEROL SULFATE 1.25 MG/3 ML NEBU NEB SCH ×4 (01:16→19:08)
[2023-07-21] MEDS: IPRATROPIUM BROMIDE 0.5 MG/2.5 ML NEBU NEB SCH ×4 (01:16→19:08)
[2023-07-21] MEDS: POLYVINYL ALCOHOL OPHT DROPS 15 ML BOTTLE EACHEYE SCH ×6 (02:52→21:30)
[2023-07-21] MEDS: MINERAL OIL/PETROLAT OPHT OINT 3.5 GM TUBE EACHEYE SCH ×3 (06:41→21:30)
[2023-07-21] MEDS: NUTRISOURCE FIBER 4 GM PACKET GT SCH ×3 (06:41→21:30)
[2023-07-21 07:39] VITALS: TEMP 97.6
[2023-07-21] MEDS: HYDROGEN PEROXIDE 3% 118 ML BOTTLE TP SCH ×2 (07:53→19:08)
[2023-07-21] MEDS: levETIRAcetam 500 MG/5 ML LIQUID UDC GT SCH ×2 (08:56→21:29)
[2023-07-21] MEDS: DOCUSATE SODIUM 100 MG/10 ML LIQUID UDC GT SCH ×2 (08:56→21:29)
[2023-07-21] MEDS: CLOBAZAM 10 MG TABLET GT SCH ×2 (08:57→20:40)
[2023-07-21] MEDS: PROTEIN SUPPLEMENT (PROSTAT) 30 ML LIQUID GT SCH ×2 (08:57→21:30)
[2023-07-21] MEDS: GEMFIBROZIL 600 MG TABLET GT SCH ×2 (08:57→17:26)
[2023-07-21] MEDS: LACOSAMIDE 100 MG/10 ML UDC GT SCH ×2 (08:57→20:40)
[2023-07-21] MEDS: REMEDY ESSENTIAL ZINC PASTE 113 GM TOP SCH ×2 (08:58→21:30)
[2023-07-21 20:00] VITALS: TEMP 97.4
[2023-07-22] MEDS: IPRATROPIUM BROMIDE 0.5 MG/2.5 ML NEBU NEB SCH ×4 (00:47→19:21)
[2023-07-22] MEDS: ALBUTEROL SULFATE 1.25 MG/3 ML NEBU NEB SCH ×4 (00:47→19:21)
[2023-07-22] MEDS: POLYVINYL ALCOHOL OPHT DROPS 15 ML BOTTLE EACHEYE SCH ×6 (02:00→21:42)
[2023-07-22] MEDS: MINERAL OIL/PETROLAT OPHT OINT 3.5 GM TUBE EACHEYE SCH ×3 (06:26→21:42)
[2023-07-22] MEDS: NUTRISOURCE FIBER 4 GM PACKET GT SCH ×3 (06:26→21:42)
[2023-07-22] MEDS: HYDROGEN PEROXIDE 3% 118 ML BOTTLE TP SCH ×2 (07:27→19:21)
[2023-07-22 07:29] VITALS: TEMP 97.3
[2023-07-22] MEDS: levETIRAcetam 500 MG/5 ML LIQUID UDC GT SCH ×2 (08:37→21:42)
[2023-07-22] MEDS: DOCUSATE SODIUM 100 MG/10 ML LIQUID UDC GT SCH ×2 (08:37→21:42)
[2023-07-22] MEDS: CLOBAZAM 10 MG TABLET GT SCH ×2 (08:38→20:30)
[2023-07-22] MEDS: PROTEIN SUPPLEMENT (PROSTAT) 30 ML LIQUID GT SCH ×2 (08:38→21:42)
[2023-07-22] MEDS: GEMFIBROZIL 600 MG TABLET GT SCH ×2 (08:38→17:20)
[2023-07-22] MEDS: BISACODYL 10 MG SUPP.RECT RC SCH (08:38)
[2023-07-22] MEDS: LACOSAMIDE 100 MG/10 ML UDC GT SCH ×2 (08:38→20:30)
[2023-07-22] MEDS: REMEDY ESSENTIAL ZINC PASTE 113 GM TOP SCH ×2 (08:40→21:42)
[2023-07-22 20:03] VITALS: TEMP 97.2
[2023-07-23] MEDS: ALBUTEROL SULFATE 1.25 MG/3 ML NEBU NEB SCH ×4 (00:49→19:03)
[2023-07-23] MEDS: IPRATROPIUM BROMIDE 0.5 MG/2.5 ML NEBU NEB SCH ×4 (00:49→19:03)
[2023-07-23] MEDS: POLYVINYL ALCOHOL OPHT DROPS 15 ML BOTTLE EACHEYE SCH ×6 (02:47→21:02)
[2023-07-23] MEDS: MINERAL OIL/PETROLAT OPHT OINT 3.5 GM TUBE EACHEYE SCH ×3 (05:49→21:02)
[2023-07-23] MEDS: NUTRISOURCE FIBER 4 GM PACKET GT SCH ×3 (05:49→21:02)
[2023-07-23] MEDS: HYDROGEN PEROXIDE 3% 118 ML BOTTLE TP SCH ×2 (07:12→19:03)
[2023-07-23 07:29] VITALS: TEMP 97.4
[2023-07-23 07:40] LABS: BASOPHILS % (AUTO) 0.6 % (0.0-2.0); EOSINOPHILS # (AUTO) 0.1 K/uL (0.0-0.7); EOSINOPHILS % (AUTO) 2.7 % (0.0-7.0); HEMATOCRIT 37.3 % (36.7-47.1); HEMOGLOBIN 12.7 g/dL (12.5-16.3); LYMPHOCYTES # (AUTO) 1.8 K/uL (0.8-4.8); LYMPHOCYTES % (AUTO) 35.4 % (20.5-51.5); MEAN CORPUSCULAR HEMOGLOBIN 32.3 uug (23.8-33.4); MEAN CORPUSCULAR HGB CONC 34 g/dL (32.5-36.3); MEAN CORPUSCULAR VOLUME 95.2 fL (73.0-96.2); MONOCYTES # (AUTO) 0.5 K/uL (0.1-1.30); MONOCYTES % (AUTO) 8.8 % (0.0-11.0); NEUTROPHILS # (AUTO) 2.7 K/uL (1.8-8.9); NEUTROPHILS % (AUTO) 52.5 % (38.5-71.5); PLATELET COUNT (AUTO) 257 K/uL (152-348); RED BLOOD CELL COUNT(AUTO) 3.92 MIL/uL (4.06-5.63); RED CELL DISTRIBUTION WIDTH 17.2 % (12.1-16.2); WHITE BLOOD COUNT (AUTO) 5.1 K/uL (3.6-10.2)
[2023-07-23 07:52] LABS: DIFFERENTIAL COMMENT 1
[2023-07-23 07:59] LABS: CREATININE 0.8 mg/dL (0.6-1.3); POTASSIUM 3.9 mmol/L (3.5-5.1)
[2023-07-23] MEDS: levETIRAcetam 500 MG/5 ML LIQUID UDC GT SCH ×2 (09:01→20:59)
[2023-07-23] MEDS: GEMFIBROZIL 600 MG TABLET GT SCH ×2 (09:02→17:03)
[2023-07-23] MEDS: LACOSAMIDE 100 MG/10 ML UDC GT SCH ×2 (09:03→20:59)
[2023-07-23] MEDS: REMEDY ESSENTIAL ZINC PASTE 113 GM TOP SCH ×2 (09:03→20:59)
[2023-07-23] MEDS: PROTEIN SUPPLEMENT (PROSTAT) 30 ML LIQUID GT SCH ×2 (09:03→20:59)
[2023-07-23] MEDS: CLOBAZAM 10 MG TABLET GT SCH ×2 (09:03→20:59)
[2023-07-23] MEDS: DOCUSATE SODIUM 100 MG/10 ML LIQUID UDC GT SCH ×2 (09:13→20:59)
[2023-07-23] MEDS ORDERED: TUBERCULIN,PURIF.PROT.DERIV. 5 TU/0.1 ML TEST ID ONE (14:00)
[2023-07-23 20:02] VITALS: TEMP 97
[2023-07-24] MEDS: ALBUTEROL SULFATE 1.25 MG/3 ML NEBU NEB SCH ×4 (00:51→19:04)
[2023-07-24] MEDS: IPRATROPIUM BROMIDE 0.5 MG/2.5 ML NEBU NEB SCH ×4 (00:51→19:04)
[2023-07-24] MEDS: POLYVINYL ALCOHOL OPHT DROPS 15 ML BOTTLE EACHEYE SCH ×6 (02:00→22:35)
[2023-07-24] MEDS: MINERAL OIL/PETROLAT OPHT OINT 3.5 GM TUBE EACHEYE SCH ×3 (05:18→22:35)
[2023-07-24] MEDS: NUTRISOURCE FIBER 4 GM PACKET GT SCH ×3 (05:19→22:35)
[2023-07-24 07:33] VITALS: TEMP 97.5
[2023-07-24] MEDS: DOCUSATE SODIUM 100 MG/10 ML LIQUID UDC GT SCH ×2 (08:12→20:57)
[2023-07-24] MEDS: PROTEIN SUPPLEMENT (PROSTAT) 30 ML LIQUID GT SCH ×2 (08:12→20:57)
[2023-07-24] MEDS: GEMFIBROZIL 600 MG TABLET GT SCH ×2 (08:12→17:07)
[2023-07-24] MEDS: levETIRAcetam 500 MG/5 ML LIQUID UDC GT SCH ×2 (08:12→20:57)
[2023-07-24] MEDS: REMEDY ESSENTIAL ZINC PASTE 113 GM TOP SCH ×2 (08:13→20:57)
[2023-07-24] MEDS: BISACODYL 10 MG SUPP.RECT RC SCH (08:13)
[2023-07-24] MEDS: LACOSAMIDE 100 MG/10 ML UDC GT SCH ×2 (08:24→20:57)
[2023-07-24] MEDS: CLOBAZAM 10 MG TABLET GT SCH ×2 (08:24→20:57)
[2023-07-24] MEDS: HYDROGEN PEROXIDE 3% 118 ML BOTTLE TP SCH ×2 (09:33→21:14)
[2023-07-24 20:07] VITALS: TEMP 97
[2023-07-25] MEDS: POLYVINYL ALCOHOL OPHT DROPS 15 ML BOTTLE EACHEYE SCH ×6 (02:00→22:21)
[2023-07-25] MEDS: NUTRISOURCE FIBER 4 GM PACKET GT SCH ×3 (05:40→22:21)
[2023-07-25] MEDS: MINERAL OIL/PETROLAT OPHT OINT 3.5 GM TUBE EACHEYE SCH ×3 (05:40→22:21)
[2023-07-25] MEDS: IPRATROPIUM BROMIDE 0.5 MG/2.5 ML NEBU NEB SCH ×3 (07:35→19:53)
[2023-07-25] MEDS: ALBUTEROL SULFATE 1.25 MG/3 ML NEBU NEB SCH ×3 (07:35→19:53)
[2023-07-25 08:00] VITALS: TEMP 98.6
[2023-07-25] MEDS: LACOSAMIDE 100 MG/10 ML UDC GT SCH ×2 (09:00→21:00)
[2023-07-25] MEDS: REMEDY ESSENTIAL ZINC PASTE 113 GM TOP SCH ×2 (09:00→21:00)
[2023-07-25] MEDS: PROTEIN SUPPLEMENT (PROSTAT) 30 ML LIQUID GT SCH ×2 (09:00→21:00)
[2023-07-25] MEDS: levETIRAcetam 500 MG/5 ML LIQUID UDC GT SCH ×2 (09:00→21:00)
[2023-07-25] MEDS: CLOBAZAM 10 MG TABLET GT SCH ×2 (09:00→21:00)
[2023-07-25] MEDS: HYDROGEN PEROXIDE 3% 118 ML BOTTLE TP SCH ×2 (09:00→21:00)
[2023-07-25] MEDS: GEMFIBROZIL 600 MG TABLET GT SCH ×2 (09:00→17:35)
[2023-07-25] MEDS: DOCUSATE SODIUM 100 MG/10 ML LIQUID UDC GT SCH ×2 (09:00→21:00)
[2023-07-25] MEDS: JEVITY 1.2 1000 ML LIQUID GT PRN (19:12)
[2023-07-25 20:03] VITALS: TEMP 97.2
[2023-07-26] MEDS: IPRATROPIUM BROMIDE 0.5 MG/2.5 ML NEBU NEB SCH ×4 (01:10→20:14)
[2023-07-26] MEDS: ALBUTEROL SULFATE 1.25 MG/3 ML NEBU NEB SCH ×4 (01:10→20:14)
[2023-07-26] MEDS: POLYVINYL ALCOHOL OPHT DROPS 15 ML BOTTLE EACHEYE SCH ×6 (02:48→21:27)
[2023-07-26] MEDS: NUTRISOURCE FIBER 4 GM PACKET GT SCH ×3 (05:45→21:27)
[2023-07-26] MEDS: MINERAL OIL/PETROLAT OPHT OINT 3.5 GM TUBE EACHEYE SCH ×3 (05:45→21:27)
[2023-07-26 08:00] VITALS: TEMP 97.9
[2023-07-26] MEDS: HYDROGEN PEROXIDE 3% 118 ML BOTTLE TP SCH ×2 (08:21→20:14)
[2023-07-26] MEDS: CLOBAZAM 10 MG TABLET GT SCH ×2 (09:00→21:26)
[2023-07-26] MEDS: REMEDY ESSENTIAL ZINC PASTE 113 GM TOP SCH ×2 (09:00→21:27)
[2023-07-26] MEDS: DOCUSATE SODIUM 100 MG/10 ML LIQUID UDC GT SCH ×2 (09:00→21:26)
[2023-07-26] MEDS: BISACODYL 10 MG SUPP.RECT RC SCH (09:00)
[2023-07-26] MEDS: PROTEIN SUPPLEMENT (PROSTAT) 30 ML LIQUID GT SCH ×2 (09:00→21:27)
[2023-07-26] MEDS: LACOSAMIDE 100 MG/10 ML UDC GT SCH ×2 (09:00→21:00)
[2023-07-26] MEDS: levETIRAcetam 500 MG/5 ML LIQUID UDC GT SCH ×2 (09:00→21:26)
[2023-07-26] MEDS: GEMFIBROZIL 600 MG TABLET GT SCH ×2 (09:00→17:52)
[2023-07-26 20:00] VITALS: TEMP 97.5
[2023-07-27] MEDS: ALBUTEROL SULFATE 1.25 MG/3 ML NEBU NEB SCH ×4 (01:30→19:20)
[2023-07-27] MEDS: IPRATROPIUM BROMIDE 0.5 MG/2.5 ML NEBU NEB SCH ×4 (01:30→19:20)
[2023-07-27] MEDS: POLYVINYL ALCOHOL OPHT DROPS 15 ML BOTTLE EACHEYE SCH ×6 (02:00→22:00)
[2023-07-27] MEDS: MINERAL OIL/PETROLAT OPHT OINT 3.5 GM TUBE EACHEYE SCH ×3 (05:22→22:00)
[2023-07-27] MEDS: NUTRISOURCE FIBER 4 GM PACKET GT SCH ×3 (05:22→22:00)
[2023-07-27 07:54] VITALS: TEMP 97.2
[2023-07-27] MEDS: levETIRAcetam 500 MG/5 ML LIQUID UDC GT SCH ×2 (09:07→20:22)
[2023-07-27] MEDS: DOCUSATE SODIUM 100 MG/10 ML LIQUID UDC GT SCH ×2 (09:07→20:22)
[2023-07-27] MEDS: GEMFIBROZIL 600 MG TABLET GT SCH ×2 (09:07→17:43)
[2023-07-27] MEDS: LACOSAMIDE 100 MG/10 ML UDC GT SCH ×2 (09:08→20:28)
[2023-07-27] MEDS: CLOBAZAM 10 MG TABLET GT SCH ×2 (09:08→20:28)
[2023-07-27] MEDS: PROTEIN SUPPLEMENT (PROSTAT) 30 ML LIQUID GT SCH ×2 (09:08→20:22)
[2023-07-27] MEDS: HYDROGEN PEROXIDE 3% 118 ML BOTTLE TP SCH ×2 (09:08→19:20)
[2023-07-27] MEDS: REMEDY ESSENTIAL ZINC PASTE 113 GM TOP SCH ×2 (09:08→20:22)
[2023-07-27] MEDS: JEVITY 1.2 1000 ML LIQUID GT PRN (17:45)
[2023-07-27 23:36] VITALS: TEMP 97.7
[2023-07-28] MEDS: IPRATROPIUM BROMIDE 0.5 MG/2.5 ML NEBU NEB SCH ×4 (01:04→19:24)
[2023-07-28] MEDS: ALBUTEROL SULFATE 1.25 MG/3 ML NEBU NEB SCH ×4 (01:04→19:24)
[2023-07-28] MEDS: POLYVINYL ALCOHOL OPHT DROPS 15 ML BOTTLE EACHEYE SCH ×6 (02:00→22:20)
[2023-07-28] MEDS: MINERAL OIL/PETROLAT OPHT OINT 3.5 GM TUBE EACHEYE SCH ×3 (06:57→22:20)
[2023-07-28] MEDS: NUTRISOURCE FIBER 4 GM PACKET GT SCH ×3 (06:57→22:20)
[2023-07-28 07:44] VITALS: TEMP 97
[2023-07-28] MEDS: GEMFIBROZIL 600 MG TABLET GT SCH ×2 (08:45→17:14)
[2023-07-28] MEDS: PROTEIN SUPPLEMENT (PROSTAT) 30 ML LIQUID GT SCH ×2 (08:45→21:00)
[2023-07-28] MEDS: CLOBAZAM 10 MG TABLET GT SCH ×2 (08:45→21:00)
[2023-07-28] MEDS: DOCUSATE SODIUM 100 MG/10 ML LIQUID UDC GT SCH ×2 (08:45→21:00)
[2023-07-28] MEDS: LACOSAMIDE 100 MG/10 ML UDC GT SCH ×2 (08:45→21:00)
[2023-07-28] MEDS: levETIRAcetam 500 MG/5 ML LIQUID UDC GT SCH ×2 (08:45→21:00)
[2023-07-28] MEDS: REMEDY ESSENTIAL ZINC PASTE 113 GM TOP SCH ×2 (08:45→21:00)
[2023-07-28] MEDS: HYDROGEN PEROXIDE 3% 118 ML BOTTLE TP SCH ×2 (09:00→19:24)
[2023-07-28 20:01] VITALS: TEMP 97.5
[2023-07-28] MEDS: JEVITY 1.2 1000 ML LIQUID GT PRN (23:42)
[2023-07-29] MEDS: ALBUTEROL SULFATE 1.25 MG/3 ML NEBU NEB SCH ×4 (01:30→19:20)
[2023-07-29] MEDS: IPRATROPIUM BROMIDE 0.5 MG/2.5 ML NEBU NEB SCH ×4 (01:30→19:20)
[2023-07-29] MEDS: POLYVINYL ALCOHOL OPHT DROPS 15 ML BOTTLE EACHEYE SCH ×6 (02:00→22:47)
[2023-07-29] MEDS: MINERAL OIL/PETROLAT OPHT OINT 3.5 GM TUBE EACHEYE SCH ×3 (06:25→22:47)
[2023-07-29] MEDS: NUTRISOURCE FIBER 4 GM PACKET GT SCH ×3 (06:25→22:47)
[2023-07-29 07:23] VITALS: TEMP 97.8
[2023-07-29] MEDS: levETIRAcetam 500 MG/5 ML LIQUID UDC GT SCH ×2 (08:36→20:01)
[2023-07-29] MEDS: GEMFIBROZIL 600 MG TABLET GT SCH ×2 (08:36→17:41)
[2023-07-29] MEDS: DOCUSATE SODIUM 100 MG/10 ML LIQUID UDC GT SCH ×2 (08:36→20:01)
[2023-07-29] MEDS: CLOBAZAM 10 MG TABLET GT SCH ×2 (08:37→20:02)
[2023-07-29] MEDS: REMEDY ESSENTIAL ZINC PASTE 113 GM TOP SCH ×2 (08:37→20:06)
[2023-07-29] MEDS: LACOSAMIDE 100 MG/10 ML UDC GT SCH ×2 (08:37→20:06)
[2023-07-29] MEDS: BISACODYL 10 MG SUPP.RECT RC SCH (08:37)
[2023-07-29] MEDS: PROTEIN SUPPLEMENT (PROSTAT) 30 ML LIQUID GT SCH ×2 (08:37→20:02)
[2023-07-29] MEDS: HYDROGEN PEROXIDE 3% 118 ML BOTTLE TP SCH ×2 (09:09→19:20)
[2023-07-29 10:20] VITALS: O2SAT 99
[2023-07-29 20:06] VITALS: TEMP 96.8
[2023-07-30] MEDS: IPRATROPIUM BROMIDE 0.5 MG/2.5 ML NEBU NEB SCH ×4 (01:27→19:18)
[2023-07-30] MEDS: ALBUTEROL SULFATE 1.25 MG/3 ML NEBU NEB SCH ×4 (01:27→19:18)
[2023-07-30] MEDS: POLYVINYL ALCOHOL OPHT DROPS 15 ML BOTTLE EACHEYE SCH ×6 (02:00→22:16)
[2023-07-30] MEDS: JEVITY 1.2 1000 ML LIQUID GT PRN (03:42)
[2023-07-30] MEDS: MINERAL OIL/PETROLAT OPHT OINT 3.5 GM TUBE EACHEYE SCH ×3 (05:43→22:16)
[2023-07-30] MEDS: NUTRISOURCE FIBER 4 GM PACKET GT SCH ×3 (05:43→22:16)
[2023-07-30 07:19] VITALS: TEMP 97.6
[2023-07-30] MEDS: DOCUSATE SODIUM 100 MG/10 ML LIQUID UDC GT SCH ×2 (08:17→20:11)
[2023-07-30] MEDS: levETIRAcetam 500 MG/5 ML LIQUID UDC GT SCH ×2 (08:18→20:15)
[2023-07-30] MEDS: GEMFIBROZIL 600 MG TABLET GT SCH ×2 (08:19→17:31)
[2023-07-30] MEDS: CLOBAZAM 10 MG TABLET GT SCH ×2 (08:19→20:17)
[2023-07-30] MEDS: LACOSAMIDE 100 MG/10 ML UDC GT SCH ×2 (08:20→20:17)
[2023-07-30] MEDS: PROTEIN SUPPLEMENT (PROSTAT) 30 ML LIQUID GT SCH ×2 (08:20→20:17)
[2023-07-30] MEDS: REMEDY ESSENTIAL ZINC PASTE 113 GM TOP SCH ×2 (08:21→20:17)
[2023-07-30] MEDS: HYDROGEN PEROXIDE 3% 118 ML BOTTLE TP SCH ×2 (09:00→19:18)
[2023-07-30 20:03] VITALS: TEMP 97.3
[2023-07-31] MEDS: ALBUTEROL SULFATE 1.25 MG/3 ML NEBU NEB SCH ×4 (00:33→19:30)
[2023-07-31] MEDS: IPRATROPIUM BROMIDE 0.5 MG/2.5 ML NEBU NEB SCH ×4 (00:33→19:30)
[2023-07-31] MEDS: POLYVINYL ALCOHOL OPHT DROPS 15 ML BOTTLE EACHEYE SCH ×6 (02:00→22:55)
[2023-07-31] MEDS: NUTRISOURCE FIBER 4 GM PACKET GT SCH ×3 (05:31→22:55)
[2023-07-31] MEDS: MINERAL OIL/PETROLAT OPHT OINT 3.5 GM TUBE EACHEYE SCH ×3 (05:31→22:55)
[2023-07-31] MEDS: JEVITY 1.2 1000 ML LIQUID GT PRN (05:33)
[2023-07-31 07:20] VITALS: TEMP 98.6
[2023-07-31] MEDS: DOCUSATE SODIUM 100 MG/10 ML LIQUID UDC GT SCH ×2 (08:15→20:08)
[2023-07-31] MEDS: levETIRAcetam 500 MG/5 ML LIQUID UDC GT SCH ×2 (08:15→20:08)
[2023-07-31] MEDS: CLOBAZAM 10 MG TABLET GT SCH ×2 (08:15→20:09)
[2023-07-31] MEDS: PROTEIN SUPPLEMENT (PROSTAT) 30 ML LIQUID GT SCH ×2 (08:15→20:09)
[2023-07-31] MEDS: GEMFIBROZIL 600 MG TABLET GT SCH ×2 (08:15→16:51)
[2023-07-31] MEDS: LACOSAMIDE 100 MG/10 ML UDC GT SCH ×2 (08:16→20:10)
[2023-07-31] MEDS: HYDROGEN PEROXIDE 3% 118 ML BOTTLE TP SCH ×2 (09:00→20:43)
[2023-07-31] MEDS: BISACODYL 10 MG SUPP.RECT RC SCH (09:26)
[2023-07-31] MEDS: REMEDY ESSENTIAL ZINC PASTE 113 GM TOP SCH ×2 (09:26→20:10)
[2023-07-31 20:13] VITALS: TEMP 97.3
[2023-08-01] MEDS: POLYVINYL ALCOHOL OPHT DROPS 15 ML BOTTLE EACHEYE SCH ×6 (02:07→22:16)
[2023-08-01] MEDS: ALBUTEROL SULFATE 1.25 MG/3 ML NEBU NEB SCH ×4 (02:09→22:34)
[2023-08-01] MEDS: IPRATROPIUM BROMIDE 0.5 MG/2.5 ML NEBU NEB SCH ×4 (02:09→22:34)
[2023-08-01] MEDS: NUTRISOURCE FIBER 4 GM PACKET GT SCH ×3 (05:37→22:16)
[2023-08-01] MEDS: MINERAL OIL/PETROLAT OPHT OINT 3.5 GM TUBE EACHEYE SCH ×3 (05:37→22:16)
[2023-08-01] MEDS: HYDROGEN PEROXIDE 3% 118 ML BOTTLE TP SCH ×2 (07:08→22:34)
[2023-08-01 08:00] VITALS: TEMP 95
[2023-08-01] MEDS: LACOSAMIDE 100 MG/10 ML UDC GT SCH ×2 (09:13→20:19)
[2023-08-01] MEDS: CLOBAZAM 10 MG TABLET GT SCH ×2 (09:14→20:19)
[2023-08-01] MEDS: DOCUSATE SODIUM 100 MG/10 ML LIQUID UDC GT SCH ×2 (09:16→20:18)
[2023-08-01] MEDS: GEMFIBROZIL 600 MG TABLET GT SCH ×2 (09:18→17:46)
[2023-08-01] MEDS: levETIRAcetam 500 MG/5 ML LIQUID UDC GT SCH ×2 (09:18→20:19)
[2023-08-01] MEDS: REMEDY ESSENTIAL ZINC PASTE 113 GM TOP SCH ×2 (09:19→20:19)
[2023-08-01] MEDS: PROTEIN SUPPLEMENT (PROSTAT) 30 ML LIQUID GT SCH ×2 (09:19→20:19)
[2023-08-01] MEDS: JEVITY 1.2 1000 ML LIQUID GT PRN (10:20)
[2023-08-01 20:00] VITALS: TEMP 98.1
[2023-08-02] MEDS: ALBUTEROL SULFATE 1.25 MG/3 ML NEBU NEB SCH ×4 (00:35→19:15)
[2023-08-02] MEDS: IPRATROPIUM BROMIDE 0.5 MG/2.5 ML NEBU NEB SCH ×4 (00:35→19:15)
[2023-08-02] MEDS: POLYVINYL ALCOHOL OPHT DROPS 15 ML BOTTLE EACHEYE SCH ×6 (01:23→21:54)
[2023-08-02] MEDS: NUTRISOURCE FIBER 4 GM PACKET GT SCH ×3 (05:33→21:54)
[2023-08-02] MEDS: MINERAL OIL/PETROLAT OPHT OINT 3.5 GM TUBE EACHEYE SCH ×3 (05:33→21:54)
[2023-08-02] MEDS: HYDROGEN PEROXIDE 3% 118 ML BOTTLE TP SCH ×2 (07:45→19:15)
[2023-08-02 08:00] VITALS: TEMP 97.8
[2023-08-02] MEDS: DOCUSATE SODIUM 100 MG/10 ML LIQUID UDC GT SCH ×2 (08:00→20:45)
[2023-08-02] MEDS: REMEDY ESSENTIAL ZINC PASTE 113 GM TOP SCH ×2 (08:00→20:45)
[2023-08-02] MEDS: LACOSAMIDE 100 MG/10 ML UDC GT SCH ×2 (08:00→20:45)
[2023-08-02] MEDS: BISACODYL 10 MG SUPP.RECT RC SCH (08:00)
[2023-08-02] MEDS: GEMFIBROZIL 600 MG TABLET GT SCH ×2 (08:00→17:14)
[2023-08-02] MEDS: CLOBAZAM 10 MG TABLET GT SCH ×2 (08:00→20:45)
[2023-08-02] MEDS: PROTEIN SUPPLEMENT (PROSTAT) 30 ML LIQUID GT SCH ×2 (08:00→20:45)
[2023-08-02] MEDS: levETIRAcetam 500 MG/5 ML LIQUID UDC GT SCH ×2 (08:00→20:45)
[2023-08-02] MEDS: JEVITY 1.2 1000 ML LIQUID GT PRN (15:13)
[2023-08-02 20:00] VITALS: TEMP 97.2
[2023-08-03] MEDS: ALBUTEROL SULFATE 1.25 MG/3 ML NEBU NEB SCH ×4 (00:46→20:28)
[2023-08-03] MEDS: IPRATROPIUM BROMIDE 0.5 MG/2.5 ML NEBU NEB SCH ×4 (00:46→20:28)
[2023-08-03] MEDS: POLYVINYL ALCOHOL OPHT DROPS 15 ML BOTTLE EACHEYE SCH ×6 (01:28→21:31)
[2023-08-03] MEDS: NUTRISOURCE FIBER 4 GM PACKET GT SCH ×3 (05:10→21:32)
[2023-08-03] MEDS: MINERAL OIL/PETROLAT OPHT OINT 3.5 GM TUBE EACHEYE SCH ×3 (05:10→21:31)
[2023-08-03 07:30] VITALS: TEMP 98.2
[2023-08-03] MEDS: levETIRAcetam 500 MG/5 ML LIQUID UDC GT SCH ×2 (09:00→21:30)
[2023-08-03] MEDS: PROTEIN SUPPLEMENT (PROSTAT) 30 ML LIQUID GT SCH ×2 (09:00→21:30)
[2023-08-03] MEDS: REMEDY ESSENTIAL ZINC PASTE 113 GM TOP SCH ×2 (09:00→21:31)
[2023-08-03] MEDS: GEMFIBROZIL 600 MG TABLET GT SCH ×2 (09:00→17:00)
[2023-08-03] MEDS: CLOBAZAM 10 MG TABLET GT SCH ×2 (09:00→21:30)
[2023-08-03] MEDS: DOCUSATE SODIUM 100 MG/10 ML LIQUID UDC GT SCH ×2 (09:00→21:30)
[2023-08-03] MEDS: LACOSAMIDE 100 MG/10 ML UDC GT SCH ×2 (09:00→21:31)
[2023-08-03 09:09] VITALS: TEMP 98.2
[2023-08-03] MEDS: HYDROGEN PEROXIDE 3% 118 ML BOTTLE TP SCH ×2 (09:58→21:31)
[2023-08-03] MEDS: JEVITY 1.2 1000 ML LIQUID GT PRN (14:27)
[2023-08-03 16:21] VITALS: TEMP 97.6
[2023-08-03 20:00] VITALS: TEMP 98.8
[2023-08-03] MEDS: LORAZEPAM 0.5 MG TABLET GT PRN (21:30)
[2023-08-04] MEDS: IPRATROPIUM BROMIDE 0.5 MG/2.5 ML NEBU NEB SCH ×4 (01:36→19:17)
[2023-08-04] MEDS: ALBUTEROL SULFATE 1.25 MG/3 ML NEBU NEB SCH ×4 (01:36→19:17)
[2023-08-04] MEDS: POLYVINYL ALCOHOL OPHT DROPS 15 ML BOTTLE EACHEYE SCH ×6 (01:54→22:15)
[2023-08-04] MEDS: NUTRISOURCE FIBER 4 GM PACKET GT SCH ×3 (05:16→22:16)
[2023-08-04] MEDS: MINERAL OIL/PETROLAT OPHT OINT 3.5 GM TUBE EACHEYE SCH ×3 (05:16→22:15)
[2023-08-04] MEDS: HYDROGEN PEROXIDE 3% 118 ML BOTTLE TP SCH ×2 (07:10→20:41)
[2023-08-04 07:30] VITALS: TEMP 97.5
[2023-08-04] MEDS: LACOSAMIDE 100 MG/10 ML UDC GT SCH ×2 (09:00→20:41)
[2023-08-04] MEDS: levETIRAcetam 500 MG/5 ML LIQUID UDC GT SCH ×2 (09:00→20:41)
[2023-08-04] MEDS: REMEDY ESSENTIAL ZINC PASTE 113 GM TOP SCH ×2 (09:00→20:41)
[2023-08-04] MEDS: PROTEIN SUPPLEMENT (PROSTAT) 30 ML LIQUID GT SCH ×2 (09:00→20:41)
[2023-08-04] MEDS: GEMFIBROZIL 600 MG TABLET GT SCH ×2 (09:00→16:41)
[2023-08-04] MEDS: DOCUSATE SODIUM 100 MG/10 ML LIQUID UDC GT SCH ×2 (09:00→20:41)
[2023-08-04] MEDS: CLOBAZAM 10 MG TABLET GT SCH ×2 (09:00→20:41)
[2023-08-04] MEDS: JEVITY 1.2 1000 ML LIQUID GT PRN (15:22)
[2023-08-04 20:00] VITALS: TEMP 98.3
[2023-08-04] MEDS: ACETAMINOPHEN 650 MG/20 ML UDC- SA PATIENTS-PAIN ONLY GT PRN (20:43)
[2023-08-04] MEDS: LORAZEPAM 0.5 MG TABLET GT PRN (20:59)
[2023-08-05] MEDS: ALBUTEROL SULFATE 1.25 MG/3 ML NEBU NEB SCH ×4 (01:42→20:15)
[2023-08-05] MEDS: IPRATROPIUM BROMIDE 0.5 MG/2.5 ML NEBU NEB SCH ×4 (01:42→20:15)
[2023-08-05] MEDS: POLYVINYL ALCOHOL OPHT DROPS 15 ML BOTTLE EACHEYE SCH ×6 (02:02→22:48)
[2023-08-05] MEDS: MINERAL OIL/PETROLAT OPHT OINT 3.5 GM TUBE EACHEYE SCH ×3 (05:22→22:48)
[2023-08-05] MEDS: NUTRISOURCE FIBER 4 GM PACKET GT SCH ×3 (05:22→22:47)
[2023-08-05] MEDS: HYDROGEN PEROXIDE 3% 118 ML BOTTLE TP SCH ×2 (07:21→20:54)
[2023-08-05] MEDS: PROTEIN SUPPLEMENT (PROSTAT) 30 ML LIQUID GT SCH ×2 (08:34→21:00)
[2023-08-05] MEDS: REMEDY ESSENTIAL ZINC PASTE 113 GM TOP SCH ×2 (08:35→21:00)
[2023-08-05] MEDS: levETIRAcetam 500 MG/5 ML LIQUID UDC GT SCH ×2 (08:40→21:00)
[2023-08-05] MEDS: DOCUSATE SODIUM 100 MG/10 ML LIQUID UDC GT SCH ×2 (08:41→21:00)
[2023-08-05] MEDS: GEMFIBROZIL 600 MG TABLET GT SCH ×2 (08:41→16:02)
[2023-08-05] MEDS: LACOSAMIDE 100 MG/10 ML UDC GT SCH ×2 (08:47→21:00)
[2023-08-05] MEDS: CLOBAZAM 10 MG TABLET GT SCH ×2 (08:47→21:00)
[2023-08-05] MEDS: BISACODYL 10 MG SUPP.RECT RC SCH (08:48)
[2023-08-05 09:15] VITALS: TEMP 97.7
[2023-08-05 20:00] VITALS: TEMP 96.6
[2023-08-06] MEDS: IPRATROPIUM BROMIDE 0.5 MG/2.5 ML NEBU NEB SCH ×4 (01:54→19:22)
[2023-08-06] MEDS: ALBUTEROL SULFATE 1.25 MG/3 ML NEBU NEB SCH ×4 (01:54→19:22)
[2023-08-06] MEDS: POLYVINYL ALCOHOL OPHT DROPS 15 ML BOTTLE EACHEYE SCH ×6 (02:04→22:00)
[2023-08-06] MEDS: NUTRISOURCE FIBER 4 GM PACKET GT SCH ×3 (05:21→22:00)
[2023-08-06] MEDS: MINERAL OIL/PETROLAT OPHT OINT 3.5 GM TUBE EACHEYE SCH ×3 (05:21→22:00)
[2023-08-06] MEDS: DOCUSATE SODIUM 100 MG/10 ML LIQUID UDC GT SCH ×2 (08:00→20:33)
[2023-08-06] MEDS: levETIRAcetam 500 MG/5 ML LIQUID UDC GT SCH ×2 (08:01→20:34)
[2023-08-06] MEDS: GEMFIBROZIL 600 MG TABLET GT SCH ×2 (08:15→16:59)
[2023-08-06] MEDS: REMEDY ESSENTIAL ZINC PASTE 113 GM TOP SCH ×2 (08:18→20:34)
[2023-08-06] MEDS: CLOBAZAM 10 MG TABLET GT SCH ×2 (08:18→20:34)
[2023-08-06] MEDS: LACOSAMIDE 100 MG/10 ML UDC GT SCH ×2 (08:18→20:34)
[2023-08-06] MEDS: PROTEIN SUPPLEMENT (PROSTAT) 30 ML LIQUID GT SCH ×2 (08:18→20:34)
[2023-08-06] MEDS: HYDROGEN PEROXIDE 3% 118 ML BOTTLE TP SCH ×2 (09:30→19:22)
[2023-08-06] MEDS: JEVITY 1.2 1000 ML LIQUID GT PRN (17:00)
[2023-08-06 17:45] VITALS: TEMP 97
[2023-08-06 20:20] VITALS: TEMP 98.2
[2023-08-07] MEDS: IPRATROPIUM BROMIDE 0.5 MG/2.5 ML NEBU NEB SCH ×4 (00:36→19:16)
[2023-08-07] MEDS: ALBUTEROL SULFATE 1.25 MG/3 ML NEBU NEB SCH ×4 (00:36→19:16)
[2023-08-07] MEDS: POLYVINYL ALCOHOL OPHT DROPS 15 ML BOTTLE EACHEYE SCH ×6 (02:11→22:42)
[2023-08-07] MEDS: NUTRISOURCE FIBER 4 GM PACKET GT SCH ×3 (05:02→22:42)
[2023-08-07] MEDS: MINERAL OIL/PETROLAT OPHT OINT 3.5 GM TUBE EACHEYE SCH ×3 (05:02→22:42)
[2023-08-07 07:35] VITALS: TEMP 97.8
[2023-08-07] MEDS: BISACODYL 10 MG SUPP.RECT RC SCH (08:56)
[2023-08-07] MEDS: LACOSAMIDE 100 MG/10 ML UDC GT SCH ×2 (08:56→20:28)
[2023-08-07] MEDS: PROTEIN SUPPLEMENT (PROSTAT) 30 ML LIQUID GT SCH ×2 (08:56→20:22)
[2023-08-07] MEDS: REMEDY ESSENTIAL ZINC PASTE 113 GM TOP SCH ×2 (08:56→20:22)
[2023-08-07] MEDS: DOCUSATE SODIUM 100 MG/10 ML LIQUID UDC GT SCH ×2 (08:56→20:22)
[2023-08-07] MEDS: levETIRAcetam 500 MG/5 ML LIQUID UDC GT SCH ×2 (08:56→20:22)
[2023-08-07] MEDS: CLOBAZAM 10 MG TABLET GT SCH ×2 (08:56→20:28)
[2023-08-07] MEDS: GEMFIBROZIL 600 MG TABLET GT SCH ×2 (08:56→17:12)
[2023-08-07] MEDS: HYDROGEN PEROXIDE 3% 118 ML BOTTLE TP SCH ×2 (09:25→19:16)
[2023-08-07 20:30] VITALS: TEMP 97.9
[2023-08-08] MEDS: ALBUTEROL SULFATE 1.25 MG/3 ML NEBU NEB SCH ×4 (00:33→19:17)
[2023-08-08] MEDS: IPRATROPIUM BROMIDE 0.5 MG/2.5 ML NEBU NEB SCH ×4 (00:33→19:17)
[2023-08-08] MEDS: POLYVINYL ALCOHOL OPHT DROPS 15 ML BOTTLE EACHEYE SCH ×6 (02:00→22:22)
[2023-08-08] MEDS: MINERAL OIL/PETROLAT OPHT OINT 3.5 GM TUBE EACHEYE SCH ×3 (05:40→22:22)
[2023-08-08] MEDS: NUTRISOURCE FIBER 4 GM PACKET GT SCH ×3 (05:41→22:22)
[2023-08-08 08:00] VITALS: TEMP 98.2
[2023-08-08] MEDS: CLOBAZAM 10 MG TABLET GT SCH ×2 (08:21→20:14)
[2023-08-08] MEDS: LACOSAMIDE 100 MG/10 ML UDC GT SCH ×2 (08:21→20:15)
[2023-08-08] MEDS: PROTEIN SUPPLEMENT (PROSTAT) 30 ML LIQUID GT SCH ×2 (08:21→20:15)
[2023-08-08] MEDS: GEMFIBROZIL 600 MG TABLET GT SCH ×2 (08:22→17:00)
[2023-08-08] MEDS: REMEDY ESSENTIAL ZINC PASTE 113 GM TOP SCH ×2 (08:22→20:15)
[2023-08-08] MEDS: levETIRAcetam 500 MG/5 ML LIQUID UDC GT SCH ×2 (08:24→20:14)
[2023-08-08] MEDS: DOCUSATE SODIUM 100 MG/10 ML LIQUID UDC GT SCH ×2 (08:25→20:14)
[2023-08-08] MEDS: HYDROGEN PEROXIDE 3% 118 ML BOTTLE TP SCH ×2 (09:09→19:17)
[2023-08-08 20:00] VITALS: TEMP 96.8
[2023-08-08 20:03] VITALS: TEMP 96.8
[2023-08-09] MEDS: ALBUTEROL SULFATE 1.25 MG/3 ML NEBU NEB SCH ×4 (02:09→19:04)
[2023-08-09] MEDS: IPRATROPIUM BROMIDE 0.5 MG/2.5 ML NEBU NEB SCH ×4 (02:09→19:04)
[2023-08-09] MEDS: POLYVINYL ALCOHOL OPHT DROPS 15 ML BOTTLE EACHEYE SCH ×6 (02:13→21:05)
[2023-08-09] MEDS: JEVITY 1.2 1000 ML LIQUID GT PRN (02:13)
[2023-08-09] MEDS: NUTRISOURCE FIBER 4 GM PACKET GT SCH ×3 (05:25→21:05)
[2023-08-09] MEDS: MINERAL OIL/PETROLAT OPHT OINT 3.5 GM TUBE EACHEYE SCH ×3 (05:25→21:05)
[2023-08-09] MEDS: HYDROGEN PEROXIDE 3% 118 ML BOTTLE TP SCH ×2 (07:25→21:21)
[2023-08-09 07:59] VITALS: TEMP 97.7
[2023-08-09] MEDS: LACOSAMIDE 100 MG/10 ML UDC GT SCH ×2 (08:29→20:22)
[2023-08-09] MEDS: CLOBAZAM 10 MG TABLET GT SCH ×2 (08:29→20:22)
[2023-08-09] MEDS: GEMFIBROZIL 600 MG TABLET GT SCH ×2 (08:31→17:00)
[2023-08-09] MEDS: REMEDY ESSENTIAL ZINC PASTE 113 GM TOP SCH ×2 (08:31→20:22)
[2023-08-09] MEDS: PROTEIN SUPPLEMENT (PROSTAT) 30 ML LIQUID GT SCH ×2 (08:31→20:22)
[2023-08-09] MEDS: levETIRAcetam 500 MG/5 ML LIQUID UDC GT SCH ×2 (08:32→20:22)
[2023-08-09] MEDS: DOCUSATE SODIUM 100 MG/10 ML LIQUID UDC GT SCH ×2 (08:33→20:22)
[2023-08-09] MEDS: BISACODYL 10 MG SUPP.RECT RC SCH (08:35)
[2023-08-09 20:54] VITALS: TEMP 98.6
[2023-08-10] MEDS: IPRATROPIUM BROMIDE 0.5 MG/2.5 ML NEBU NEB SCH ×4 (01:05→19:23)
[2023-08-10] MEDS: ALBUTEROL SULFATE 1.25 MG/3 ML NEBU NEB SCH ×4 (01:05→19:24)
[2023-08-10] MEDS: POLYVINYL ALCOHOL OPHT DROPS 15 ML BOTTLE EACHEYE SCH ×6 (01:57→21:17)
[2023-08-10] MEDS: NUTRISOURCE FIBER 4 GM PACKET GT SCH ×3 (05:02→21:17)
[2023-08-10] MEDS: MINERAL OIL/PETROLAT OPHT OINT 3.5 GM TUBE EACHEYE SCH ×3 (05:02→21:17)
[2023-08-10 07:42] VITALS: TEMP 97.6
[2023-08-10] MEDS: DOCUSATE SODIUM 100 MG/10 ML LIQUID UDC GT SCH ×2 (09:07→20:23)
[2023-08-10] MEDS: GEMFIBROZIL 600 MG TABLET GT SCH ×2 (09:07→17:36)
[2023-08-10] MEDS: levETIRAcetam 500 MG/5 ML LIQUID UDC GT SCH ×2 (09:07→20:23)
[2023-08-10] MEDS: CLOBAZAM 10 MG TABLET GT SCH ×2 (09:08→20:23)
[2023-08-10] MEDS: PROTEIN SUPPLEMENT (PROSTAT) 30 ML LIQUID GT SCH ×2 (09:11→20:23)
[2023-08-10] MEDS: LACOSAMIDE 100 MG/10 ML UDC GT SCH ×2 (09:11→20:23)
[2023-08-10] MEDS: REMEDY ESSENTIAL ZINC PASTE 113 GM TOP SCH ×2 (09:11→20:23)
[2023-08-10] MEDS: HYDROGEN PEROXIDE 3% 118 ML BOTTLE TP SCH ×2 (09:50→19:24)
[2023-08-10] MEDS: JEVITY 1.2 1000 ML LIQUID GT PRN (13:02)
[2023-08-11 00:15] VITALS: TEMP 97.7
[2023-08-11] MEDS: ALBUTEROL SULFATE 1.25 MG/3 ML NEBU NEB SCH ×4 (01:25→19:06)
[2023-08-11] MEDS: IPRATROPIUM BROMIDE 0.5 MG/2.5 ML NEBU NEB SCH ×4 (01:25→19:06)
[2023-08-11] MEDS: POLYVINYL ALCOHOL OPHT DROPS 15 ML BOTTLE EACHEYE SCH ×6 (02:05→21:02)
[2023-08-11] MEDS: MINERAL OIL/PETROLAT OPHT OINT 3.5 GM TUBE EACHEYE SCH ×3 (06:38→21:02)
[2023-08-11] MEDS: NUTRISOURCE FIBER 4 GM PACKET GT SCH ×3 (06:38→21:02)
[2023-08-11 07:59] VITALS: TEMP 97.7
[2023-08-11] MEDS: DOCUSATE SODIUM 100 MG/10 ML LIQUID UDC GT SCH ×2 (08:58→21:02)
[2023-08-11] MEDS: levETIRAcetam 500 MG/5 ML LIQUID UDC GT SCH ×2 (08:59→21:02)
[2023-08-11] MEDS: GEMFIBROZIL 600 MG TABLET GT SCH ×2 (08:59→17:00)
[2023-08-11] MEDS: CLOBAZAM 10 MG TABLET GT SCH ×2 (09:03→21:02)
[2023-08-11] MEDS: PROTEIN SUPPLEMENT (PROSTAT) 30 ML LIQUID GT SCH ×2 (09:03→21:02)
[2023-08-11] MEDS: REMEDY ESSENTIAL ZINC PASTE 113 GM TOP SCH ×2 (09:04→21:02)
[2023-08-11] MEDS: LACOSAMIDE 100 MG/10 ML UDC GT SCH ×2 (09:04→21:02)
[2023-08-11] MEDS: HYDROGEN PEROXIDE 3% 118 ML BOTTLE TP SCH ×2 (09:52→19:06)
[2023-08-11] MEDS: JEVITY 1.2 1000 ML LIQUID GT PRN (15:39)
[2023-08-11 22:49] VITALS: TEMP 97.7
[2023-08-12] MEDS: ALBUTEROL SULFATE 1.25 MG/3 ML NEBU NEB SCH ×4 (01:03→19:20)
[2023-08-12] MEDS: IPRATROPIUM BROMIDE 0.5 MG/2.5 ML NEBU NEB SCH ×4 (01:03→19:20)
[2023-08-12] MEDS: POLYVINYL ALCOHOL OPHT DROPS 15 ML BOTTLE EACHEYE SCH ×6 (01:33→22:06)
[2023-08-12] MEDS: MINERAL OIL/PETROLAT OPHT OINT 3.5 GM TUBE EACHEYE SCH ×3 (06:19→22:06)
[2023-08-12] MEDS: NUTRISOURCE FIBER 4 GM PACKET GT SCH ×3 (06:19→22:06)
[2023-08-12 07:46] VITALS: TEMP 97.6
[2023-08-12] MEDS: CLOBAZAM 10 MG TABLET GT SCH ×2 (08:50→20:21)
[2023-08-12] MEDS: DOCUSATE SODIUM 100 MG/10 ML LIQUID UDC GT SCH ×2 (08:50→20:15)
[2023-08-12] MEDS: LACOSAMIDE 100 MG/10 ML UDC GT SCH ×2 (08:50→20:21)
[2023-08-12] MEDS: levETIRAcetam 500 MG/5 ML LIQUID UDC GT SCH ×2 (08:51→20:15)
[2023-08-12] MEDS: PROTEIN SUPPLEMENT (PROSTAT) 30 ML LIQUID GT SCH ×2 (08:52→20:15)
[2023-08-12] MEDS: GEMFIBROZIL 600 MG TABLET GT SCH ×2 (08:52→17:12)
[2023-08-12] MEDS: REMEDY ESSENTIAL ZINC PASTE 113 GM TOP SCH ×2 (08:52→20:16)
[2023-08-12] MEDS: BISACODYL 10 MG SUPP.RECT RC SCH (08:52)
[2023-08-12] MEDS: HYDROGEN PEROXIDE 3% 118 ML BOTTLE TP SCH ×2 (09:31→19:20)
[2023-08-12] MEDS: JEVITY 1.2 1000 ML LIQUID GT PRN (20:25)
[2023-08-12 20:56] VITALS: TEMP 98.2
[2023-08-13] MEDS: ALBUTEROL SULFATE 1.25 MG/3 ML NEBU NEB SCH (01:30)
[2023-08-13] MEDS: IPRATROPIUM BROMIDE 0.5 MG/2.5 ML NEBU NEB SCH (01:30)
[2023-08-13] MEDS: POLYVINYL ALCOHOL OPHT DROPS 15 ML BOTTLE EACHEYE SCH ×2 (02:44→05:09)
[2023-08-13] MEDS: MINERAL OIL/PETROLAT OPHT OINT 3.5 GM TUBE EACHEYE SCH (05:09)
[2023-08-13] MEDS: NUTRISOURCE FIBER 4 GM PACKET GT SCH (05:09)
== END 2023-08-11 23:59 | disposition still patient (30) | DRG 207 ==
LOC: SA 16:03 → SA1 03-07 22:05 → SA 03-10 17:58
PROVIDERS: ADMIT Internal Medicine; ATTEND Internal Medicine
PROC: 5A1955Z Respiratory Ventilation, Greater than 96 Consecutive Hours (ICD-10-PCS; principal; 2022-11-16)
DX: J96.11 Chronic respiratory failure with hypoxia (principal); D68.59 Other primary thrombophilia; E23.2 Diabetes insipidus; G93.1 Anoxic brain damage, not elsewhere classified; Z99.11 Dependence on respirator [ventilator] status; D64.9 Anemia, unspecified; E78.5 Hyperlipidemia, unspecified; G40.901 Epilepsy, unspecified, not intractable, with status epilepticus; I95.89 Other hypotension; K76.0 Fatty (change of) liver, not elsewhere classified; L03.032 Cellulitis of left toe; L60.0 Ingrowing nail; N31.9 Neuromuscular dysfunction of bladder, unspecified; R13.10 Dysphagia, unspecified; I69.298 Other sequelae of other nontraumatic intracranial hemorrhage; Z87.891 Personal history of nicotine dependence; Z93.0 Tracheostomy status; Z93.1 Gastrostomy status
CPT/HCPCS: 36415; 36600; 71045; 83735; 84100; 85025; 86580; 90686; 94003; 94640; 94664; A4663; A6209; A6213; C1758; J1644; J2185; J3490; J3590; U0003